=== PATIENT | male | born 1960 | race Caucasian/White ===

== ENCOUNTER 2024-06-27 | Inpatient (IN) | payer MEDICARE, SELFPAY ==
[2024-06-27] VITALS (36 sets, daily range): BP systolic 87–152; BP diastolic 71–97; PULSE 100–141; RESP 12–30; TEMP 36.7–36.9; O2SAT 94–100; BMI 24.4
--- NOTE | ~2024-06-27 | XR_ITS ---
Supine and upright views of the abdomen Clinical history: Postop small bowel obstruction COMPARISON: 07/14/2024 Findings: Dilated small bowel present particularly present in the left upper quadrant, which could re flect small bowel obstruction. No free air evident. No abnormal mass lesion or calcification is seen. Osseous structures are intact. Impression: Small bowel obstruction. Reviewed, dictated and finalized at [facility]. Impression: Small bowel obstruction.
--- NOTE | ~2024-06-27 | XR_ITS ---
Upright portable view of the abdomen Clinical history: NG tube placement Findings: NG tube tip is just the GE junction, with side-port in the distal esophagus. Possible diste nded small bowel loops, which could reflect small bowel obstruction. No free air evident. Abnormal ma ss lesion or calcification is seen. Osseous structures are intact. Impression: NG tube tip at the GE junction. Further advancement of NG tube by at least 10 cm advised to ensure pl acement in the stomach. Possible small bowel obstruction. Reviewed, dictated and finalized at location M. Impression: NG tube tip at the GE junction. Further advancement of NG tube by at least 10 c m advised to ensure placement in the stomach. Possible small bowel obstruction.
--- NOTE | ~2024-06-27 | CT_ITS ---
CTA chest PE abdomen pel Ordering provider: Adore Smtih MD History: . unexplained tachycardia; epigastric pain . Comparison: None. Technique: CT angiogram chest was performed following timed intravenous injection of contrast. Thin s lice axial images and reformatted coronal images were obtained. Three dimensional reformatted images of the chest were also obtained using a [employer] workstation. Also, CT of the abdomen and pelvis was pe rformed with IV contrast. . Automated exposure control and iterative reconstruction technique were e mployed. The dose-length product was 1215.92 mGy-cm. 100 ML Omnipaque 350 was given IV. FINDINGS: CHEST: --PULMONARY ARTERIES: No pulmonary embolus. --VISUALIZED THORACIC INLET: Normal. --MEDIASTINUM: Aorta/coronary arteries: Mild atheromatous disease. Heart/other: The heart is not enlarged. . Lymph nodes: No mediastinal or hilar adenopathy. Fluid seen in the esophagus which may indicate reflux esophagitis.0 --LUNGS: No pulmonary nodules or masses. No infiltrates or effusions. No pneumothorax. Dependent atelectatic c hanges are seen. --MUSCULOSKELETAL: Bones: Age appropriate degenerative changes of the spine. Superficial soft tissues: The superficial soft tissues are normal. ABDOMEN/PELVIS: --MUSCULOSKELETAL: Superficial soft tissues: The superficial soft tissues are normal. Bones: Age appropriate degenerative changes of the spine. --UPPER ABDOMINAL ORGANS: Liver: Normal. Gallbladder: Distended with no stones. Spleen: Normal. Stomach/duodenum: Distended with fluids. Pancreas: Normal. Slightly prominent pancreatic duct. Adrenals: Normal. Kidneys: Normal. --PELVIC ORGANS: The bladder is underfilled. No bladder stones. Enlarged prostate. --BOWEL AND MESENTERY: Colon: No evidence of diverticulitis.. No evidence of appendicitis. Small Bowel: Dilated small bowel is seen suggestive of small bowel obstruction. The transition areas seen in the terminal ileum. The small bowel measures 4.6 cm. Peritoneum/mesentery: No free air or free fluid. No mesenteric lymphadenopathy. --RETROPERITONEUM: Mild atheromatous disease of the abdominal aorta. No retroperitoneal lymphadenop athy. IMPRESSION: CHEST: 1. No pulmonary embolism. No aortic dissection 2. No acute cardiopulmonary pathology. ABDOMEN/PELVIS: 1. Small bowel obstruction with the transition zone in the terminal ileum area. Clinical correlation advised. 2. No evidence of appendicitis, or diverticulitis. Reviewed, dictated and finalized at location A. IMPRESSION: CHEST: 1. No pulmonary embolism. No aortic dissection 2. No acute cardiopulmonary pathology. ABDOMEN/PELVIS: 1. Small bowel obstruction with the transition zone in the terminal ileum area . Clinical correlation advised. 2. No evidence of appendicitis, or diverticulitis.
--- NOTE | ~2024-06-27 | XR_ITS ---
EXAMINATION: XR sm bowel follow through WS DATE: 07/05/2024 15:39 INDICATION: Postoperative ileus versus small bowel obstruction TECHNIQUE: Water-soluble oral contrast was administered by the patient's nasogastric tube, and sequen tial radiographs of the abdomen were obtained through 6 hours. COMPARISON: 06/28/2024 FINDINGS: Nasogastric tube tip in the stomach. There are multiple dilated loops of gas-filled small bowel throu ghout the abdomen and pelvis. There is slow progression of contrast through several of these small roxy wel loops over the course of the next 6 hours of imaging. There is however a dilated loop of small roxy wel extending across the upper pelvis which remains unopacified throughout the course of the examinat ion and no contrast is seen within decompressed more distal small bowel or in the colon. IMPRESSION: 1. Persistent ileus versus small bowel obstruction with contrast not having reached the distalmost di lated loops of gas-filled small bowel over the course of 6 hours. Reviewed, dictated and finalized at location A. IMPRESSION: 1. Persistent ileus versus small bowel obstruction with contrast not having jacque ched the distalmost dilated loops of gas-filled small bowel over the course of 6 hours.
--- NOTE | ~2024-06-27 | XR_ITS ---
EXAMINATION: XR chest PICC line DATE: 07/02/2024 15:11 INDICATION: Assess PICC line placement TECHNIQUE: frontal view of the chest was obtained. COMPARISON: Chest radiograph dated 10/05/[address] dated 06/27/2024 FINDINGS: Right upper extremity peripherally inserted central venous catheter (PICC) tip at the caudal superio r vena cava. Nasogastric tube tip in proximal side port in the body of the stomach. Unchanged linear discoid atelectasis/scarring in the superior segment of the right lower lobe. Additi onal minimal streaky right basilar atelectasis. No new airspace opacities, pulmonary edema, pleural e ffusion or pneumothorax. Heart size is normal. Visualized bones and soft tissues are unremarkable. IMPRESSION: 1. Right PICC line tip at the caudal superior vena cava. 2. Unchanged mild streaky bibasilar atelectasis and discoid atelectasis at the superior segment of th e right lower lobe. Reviewed, dictated and finalized at location A. IMPRESSION: 1. Right PICC line tip at the caudal superior vena cava. 2. Unchanged mild streaky bibasilar atelectasis and discoid atelectasis at the superior segment of the right lower lobe.
--- NOTE | ~2024-06-27 | XR_ITS ---
EXAM/PROCEDURE: XR abdomen/kub 1V - 07/03/2024 12:30 CDT HISTORY: 64 years old Male with ileus s/p adhesiolysis for sbo COMPARISON: 07/01/2024 TECHNIQUE: AP view(s) of the abdomen. FINDINGS/ IMPRESSION: Multiple dilated loops of small bowel are seen, compatible with patient's known ileus versus bowel ob struction. Tip of the nasogastric tube is in the stomach. No free intraperitoneal air is identified on this supine radiograph. The visualized soft tissue shadows are unremarkable. Degenerative changes are seen. Reviewed, dictated and finalized at location A.
--- NOTE | ~2024-06-27 | CT_ITS ---
CT cervical spine wo con Ordering provider: Adore Smith History: . fall, syncope, ams . Comparison: None. Technique: CT of the cervical spine was performed without contrast. Sagittal and coronal reformatted images were also obtained and reviewed. Automated exposure control and iterative reconstruction tess hnique were employed. The dose-length product was 352.08 mGy-cm. FINDINGS: VERTEBRAE: No subluxation or acute fracture. The occipital condyles are intact. Degenerative changes of the spine. DISC SPACES: Severe Narrowing of the disc C3-C4, C4-C5, C5-C6 and C6-C7. Multilevel uncovertebral juliet nt osteoarthritic changes. Bilateral narrowing of the foramina at the level of C3-C4, C4-C5, C5-C6 an d C6-C7. PARASPINOUS SOFT TISSUES: Carotid calcifications. IMPRESSION: No acute osseous abnormality cervical spine. Multilevel degenerative disc disease. Reviewed, dictated and finalized at location A.
--- NOTE | ~2024-06-27 | XR_ITS ---
XR chest 1V portable 07/08/2024 13:30 Indication: Shortness of breath Procedure: AP portable chest Comparison: 07/02/2024 Findings: PICC line tip in the SVC. NG tube in the stomach. Heart size normal. Developing patchy bila teral airspace disease, compatible with pneumonia. No significant effusion or pneumothorax. No acute osseous abnormality. Impression: 1: Developing patchy bilateral airspace disease, compatible with pneumonia. Reviewed, dictated and finalized at location B. Impression: 1: Developing patchy bilateral airspace disease, compatible with pneumonia.
--- NOTE | ~2024-06-27 | US_ITS ---
RIGHT UPPER EXTREMITY VENOUS ULTRASOUND Ordering provider: Ricarda Bui DO History: . redness/swelling at PICC insertion site . Comparison: None. FINDINGS: --JUGULAR: Patent and free of thrombus. Normal compressibility, phasic flow and augmentation. --SUBCLAVIAN: Patent and free of thrombus. Normal compressibility, phasic flow and augmentation. --AXILLARY: Patent and free of thrombus. Normal compressibility, phasic flow and augmentation. --BRACHIAL: Patent and free of thrombus. Normal compressibility, phasic flow and augmentation. --CEPHALIC: Patent and free of thrombus. Normal compressibility, phasic flow and augmentation. --BASILIC: Patent and free of thrombus. Normal compressibility, phasic flow and augmentation. --RADIAL: Patent and free of thrombus. Normal compressibility, phasic flow and augmentation. --ULNAR: Patent and free of thrombus. Normal compressibility, phasic flow and augmentation. PICC line is seen. IMPRESSION: Negative right upper extremity venous US. No deep vein thrombosis. Reviewed, dictated and finalized at location A.
--- NOTE | ~2024-06-27 | XR_ITS ---
XR abdomen/kub 1V Ordering provider: Zach Shipman MD History: . sbo . Comparison: None. FINDINGS: BOWEL: Nasogastric tube is seen in the stomach. Dilated small bowel loops in the upper abdomen are no glo. Obstruction is not excluded. Follow-up advised. ORGANOMEGALY: None. SIGNIFICANT PATHOLOGIC CALCIFICATIONS: None. OTHER: No free air is seen under the diaphragm. IMPRESSION: Dilated small bowel loops in the upper and mid abdomen suggestive of obstruction. Follow-up advised. Reviewed, dictated and finalized at location A. IMPRESSION: Dilated small bowel loops in the upper and mid abdomen suggestive of obstructio n. Follow-up advised.
--- NOTE | ~2024-06-27 | XR_ITS ---
XR abdomen/kub 1V 07/14/2024 08:40 Indication: Ileus versus small bowel obstruction Procedure: KUB Comparison: Comparison to multiple prior studies sequentially, with oldest reviewed study dated 07/06 Findings: there are persistent moderately dilated small bowel loops throughout the abdomen. The colon is relatively decompressed. No abnormal calcifications. Moderate lumbar spondylosis.. Impression: 1: Moderately dilated small bowel loops unchanged from prior study, most likely postoperative ileus v ersus obstruction. Reviewed, dictated and finalized at location A. Impression: 1: Moderately dilated small bowel loops unchanged from prior study, most likely postoperative ileus versus obstruction.
--- NOTE | ~2024-06-27 | CT_ITS ---
Non-contrast CT scan of the Abdomen and Pelvis Clinical indication: Rapid response Technique: 2.5 mm axial scans were obtained through the abdomen and pelvis without intravenous or or al contrast. Dose reduction technique was used on this scan by utilizing automated exposure control a nd iterative reconstruction technique. The dose-length product (DLP) was 1134.28 mGy-cm. COMPARISON: 07/06/2024 Findings: Images through the lung bases reveal small bilateral pleural effusions with bibasilar airs pace disease.. The liver, spleen, pancreas, gallbladder, kidneys, and adrenals appear normal. There are atherosclero tic calcifications of the aorta. . Small amount of pneumoperitoneum present. There are new surgical cora anterior midline subcutaneou s soft tissues. Trace abdominopelvic ascites present. Bowel distention is markedly decreased from gio or exam. Small bowel loops are extensively somewhat matted together, limiting evaluation. Images through the pelvis were performed. Urinary bladder collapsed around a Eller catheter. Prostate gland mildly enlarged. Impression: Small amount of pneumoperitoneum, likely postoperative with evidence of recent midline incision stapl ing since prior exam. Correlate with surgical history. Bowel distention/bowel obstruction is essentially resolved as compared to prior exam. Small bowel edward luation is limited on the current exam due to extensive matting together of bowel loops. Small amount of ascites. Small pleural effusions with bibasilar pulmonary edema/atelectasis versus pneumonia. Correlate clinic ally. Reviewed, dictated and finalized at location M. Impression: Small amount of pneumoperitoneum, likely postoperative with evidence of recent midline incision stapling since prior exam. Correlate with surgical history. Bowel distention/bowel obstruction is essentially resolved as compared to prior exam. Small bowel evaluation is limited on the current exam due to extensive m atting together of bowel loops. Small amount of ascites. Small pleural effusions with bibasilar pulmonary edema/atelectasis versus pneum onia. Correlate clinically.
--- NOTE | ~2024-06-27 | CT_ITS ---
CT of the Abdomen and Pelvis: Indication: Small bowel obstruction, status post laparotomy Technique: 2.5 mm axial scans were obtained through the abdomen and pelvis following intravenous adm inistration of 100 cc of Omnipaque 350. Dose reduction technique was used on this scan by utilizing a utomated exposure control and iterative reconstruction technique. The dose-length product (DLP) was 5 66.32 mGy-cm. COMPARISON: 06/27/2024 Findings: Scans through the lung bases demonstrate small right pleural effusion with bibasilar patch y consolidation. The liver, spleen, pancreas, gallbladder, adrenals and kidneys are within normal limits. There are at herosclerotic calcifications of the aorta. No lymphadenopathy. Multiple dilated proximal small bowel loops are present. There is relative transition point in the mi d abdomen, with distal small bowel and large bowel being decompressed. Small amount of ascites presen t. There is mesenteric edema. No definite extraluminal air identified. Images through the pelvis were performed. Small stones versus dense contrast layering in the urinary bladder. Prostate gland mildly enlarged. Impression: Findings compatible small bowel obstruction, with relative transition point in the mid small bowel. N o obstructing mass evident. Small amount of ascites with mesenteric edema. Small right pleural effusion with patchy bibasilar pulmonary consolidation. Correlate for pulmonary e baljit/atelectasis versus pneumonia. Small stones versus dense contrast layering the urinary bladder. Reviewed, dictated and finalized at [facility]. Impression: Findings compatible small bowel obstruction, with relative transition point in the mid small bowel. No obstructing mass evident. Small amount of ascites with mesenteric edema. Small right pleural effusion with patchy bibasilar pulmonary consolidation. Cor relate for pulmonary edema/atelectasis versus pneumonia. Small stones versus dense contrast layering the urinary bladder.
--- NOTE | ~2024-06-27 | XR_ITS ---
SMALL BOWEL SERIES ONLY INDICATION: Bowel obstruction TECHNIQUE: Serial plain films were performed following water-soluble contrast instillation via the pr e-existing nasogastric tube. COMPARISON: Reference is made to a CT examination of the abdomen and pelvis dated 06/27/2024 which demo nstrated a small bowel obstruction with the transition zone in the terminal ileum. FINDINGS: Production Trainer imaging demonstrated multiple loops of significantly dilated small bowel measuring 6. 62 cm in greatest dimension, to the left of midline with significant mural thickening. No free air wa s appreciated on plain film supine call out operator evaluation. Water-soluble contrast was instilled into the pre-existing nasogastric tube by the technologist and e valuated over the ensuing afternoon and early evening. After 6 hours, the contrast remained within multiple loops of dilated small bowel (as well as the now significantly dilated stomach), without significant progression. Examination is presented for interpretation at approximately 6:30 PM. IMPRESSION: High-grade small bowel obstruction, as detailed above. Reviewed, dictated and finalized at location A.
--- NOTE | ~2024-06-27 | XR_ITS ---
Supine and upright views of the abdomen Clinical history: Small bowel obstruction Findings: Dilated small bowel loops are compatible with small bowel obstruction. No free air present. NG tube in place. No abnormal mass lesion or calcification is seen. Osseous structures are intact. Impression: Small bowel obstruction with NG tube in place. Reviewed, dictated and finalized at [facility]. Impression: Small bowel obstruction with NG tube in place.
--- NOTE | ~2024-06-27 | XR_ITS ---
EXAMINATION: XR sm bowel follow through DATE: 07/15/2024 11:47 INDICATION: Small bowel obstruction post small bowel resection TECHNIQUE: Cook Chief radiograph(s) of the abdomen was/were obtained. Oral contrast was administered, and sequential radiographs of the abdomen were obtained until oral contrast was noted to be in the proxi mal colon. A total of 11 overhead radiographs were obtained. COMPARISON: 07/09/2024 FINDINGS: Transit time from the stomach to proximal colon was approximately 2 hours. There is normal caliber an d mucosal fold pattern throughout the small bowel. IMPRESSION: 1. Normal small bowel follow-through. Reviewed, dictated and finalized at location A.
--- NOTE | ~2024-06-27 | XR_ITS ---
Supine and upright views of the abdomen Clinical history: Small bowel obstruction COMPARISON: 07/05/2024 Findings: NG tube in place. Dilated small bowel loops are compatible small bowel obstruction. No free air. No abnormal mass lesion or calcification is seen. Osseous structures are intact. Impression: Small bowel obstruction with NG tube in place. Reviewed, dictated and finalized at [facility]. Impression: Small bowel obstruction with NG tube in place.
--- NOTE | ~2024-06-27 | XR_ITS ---
XR abdomen gastric tube insert Ordering provider: Adore Smith MD History: . check NG placement . Comparison: None. FINDINGS/impression: BOWEL: Nasogastric tube is seen with the tip in the fundus of the stomach. Dilated small bowel loops seen suggestive of obstruction. Follow-up advised. Reviewed, dictated and finalized at location A.
--- NOTE | ~2024-06-27 | XR_ITS ---
EXAMINATION: XR abdomen obstructive series DATE: 07/13/2024 09:16 INDICATION: Nausea. Postoperative adhesion lysis. TECHNIQUE: Frontal supine and upright views of the abdomen were obtained. COMPARISON: 07/09/2024 FINDINGS: There is gas scattered throughout multiple loops of small bowel a few segments. Mildly dilated most l ikely postoperative ileus. No free intraperitoneal gas. Mild streaky atelectasis/scarring at the left lung base and oblique linear discoid atelectasis in the right mid to lower lung zone. Heart size is normal. IMPRESSION: 1. Several intermittently mildly dilated loops of small bowel throughout the abdomen and pelvis and favor postoperative ileus over obstruction. Reviewed, dictated and finalized at location A. IMPRESSION: 1. Several intermittently mildly dilated loops of small bowel throughout the a bdomen and pelvis and favor postoperative ileus over obstruction.
--- NOTE | ~2024-06-27 | XR_ITS ---
EXAMINATION: XR UGI water soluble w sbs DATE: 07/09/2024 12:40 INDICATION: Status post small bowel resection for small bowel obstruction. TECHNIQUE: 360 mm water-soluble contrast was injected through the patient's nasogastric tube. 11 fluo roscopic spot radiographs of the stomach, and proximal small bowel were obtained. Additional overhea d radiographs were obtained during the transit through the small bowel. Fluoroscopy exposure time wa s 0.3 minutes. Total DAP was 54.255 Gycm^2 COMPARISON: None. FINDINGS: The nasogastric tube is in expected position with the distal tip in proximal side port in the body of the stomach. The stomach and proximal small bowel are normal in appearance. There was one episode of spontaneous gastroesophageal reflux to the midesophagus. Transit time to the colon was 1 hour with p rogressive accumulation of contrast in the proximal colon over the following one hour. The small jemima l demonstrates a normal diameter and mucosal fold pattern. Midline skin cora are present. IMPRESSION: 1. No bowel obstruction or ileus with normal small bowel transit time and normal caliber and mucosal fold pattern to the small bowel. Reviewed, dictated and finalized at location A. IMPRESSION: 1. No bowel obstruction or ileus with normal small bowel transit time and tristan l caliber and mucosal fold pattern to the small bowel.
--- NOTE | ~2024-06-27 | CT_ITS ---
CT brain wo con Ordering provider: Adore Smith History: 64 years Male with . fall, syncope, initially unresponsive . Comparison: None. Technique: CT of the head without contrast. Radiation reduction technique utilized.The dose-length pr oduct was 681 mGy-cm. FINDINGS: BRAIN PARENCHYMA AND CSF SPACES: Mild leukoaraiosis and diffuse cortical atrophy. Mild atheromatous d isease. Old lacunar infarct in the right frontal paraventricular and right basal ganglia area. No mid line shift, mass effect or hemorrhage. The brain parenchyma and CSF spaces are otherwise normal. VISUALIZED PARANASAL SINUSES: Well aerated. MASTOIDS: Well aerated. BONES: The bones appear intact. SOFT TISSUES: Visualized nasopharynx is normal. Superficial soft tissues are normal. IMPRESSION: No acute intracranial findings. Reviewed, dictated and finalized at location A.
--- NOTE | ~2024-06-27 | XR_ITS ---
[id number] Indication: Small bowel obstruction. Patient pulled G-tube out. TECHNIQUE: Fluoroscopy used during NG tube placement on 07/01/2024. 0.1 minutes of fluoroscopy with o ne fluoroscopic images captured. FINDINGS: Single image demonstrates NG tube in the stomach. Correlate with procedure note. IMPRESSION: Fluoroscopy used during NG tube placement in the stomach. Reviewed, dictated and finalized at location A.
--- NOTE | ~2024-06-27 | XR_ITS ---
Supine and upright views of the abdomen Clinical history: Small bowel obstruction, status post small bowel resection COMPARISON: 07/06/2024 Findings: NG tube in place. Surgical skin cora noted in the midline. Bowel gas pattern is nonspeci fic. No evidence for obstruction or free air. No abnormal mass lesion or calcification is seen. Mulhall us structures are intact. Impression: Nonspecific bowel gas pattern with NG tube in place. Reviewed, dictated and finalized at location . Impression: Nonspecific bowel gas pattern with NG tube in place.
--- NOTE | 2024-06-27 00:08 | ECG_ITS ---
Test Date: 2024-06-27 00:08:48 Measurements Intervals [place] Rate: 133 P: 34 ND: 108 QRS: -1 QRSD: 90 T: 75 QT: 328 QTc: 488 Interpretive Statements SINUS TACHYCARDIA WITH SHORT ND INTERVAL DELAYED PRECORDIAL R/S TRANSITION CONSIDER INFERIOR INFARCT, AGE INDETERMINATE NONSPECIFIC ST & T-WAVE ABNORMALITY- ANTEROLAT/HIGH LAT LEADS BASELINE WANDER- II, III, AVR, AVL, AVF, V4-V6 ABNORMAL ECG No previous ECG available for comparison Electronically Signed On 06-27-2024 07:30:39 CDT by Kar Bray D.O.
--- NOTE | 2024-06-27 01:07 | ECG_ITS ---
Test Date: 2024-06-27 01:14:58 Measurements Intervals [place] Rate: 144 P: 43 MT: 134 QRS: -5 QRSD: 83 T: 76 QT: 297 QTc: 460 Interpretive Statements SINUS TACHYCARDIA DELAYED PRECORDIAL R/S TRANSITION CONSIDER INFERIOR INFARCT, AGE INDETERMINATE NONSPECIFIC ST & T-WAVE ABNORMALITY- HIGH LATERAL LEADS ABNORMAL ECG Compared to ECG 06/27/2024 00:08:48 HEART RATE HAS INCREASED Electronically Signed On 06-27-2024 07:46:26 CDT by Kar Bray D.O.
--- NOTE | 2024-06-27 01:35 | PC.NURSE ---
ERP notified of patients VS and symptoms. No new orders. Patient family at bedside.
[2024-06-27 01:57] LABS: Hematocrit 54.8 % (42.0-52.0); Hemoglobin 18.5 g/dL (14.0-18.0); Mean Corpuscular HGB Conc 33.8 g/dl (32-36); Mean Corpuscular Hemoglobin 31.7 pg (26-34); Mean Platelet Volume 9.4 fl (7.4-10.4); Platelet Count Result 269 k/mm3 (150-375); Red Blood Count 5.83 M/mm3 (4.6-6.20); Red Cell Distribution Width 13.2 % (11.5-14.5); White Blood Count 7.5 K/mm3 (4.5-10.0)
[2024-06-27] MEDS: SODIUM CHLORIDE 0.9% IV 1,000 ML 999 ML IV CONT ×2 (01:58→04:17)
[2024-06-27 02:08] LABS: INR 1.1
[2024-06-27 02:09] LABS: Partial Thromboplastin Time 20.9 Seconds (22.3-36.8)
[2024-06-27 02:23] LABS: Band Neutrophils Percent 3 % (0-6); Large Platelets Present; Monocytes Percent Manual 4 % (3-9); Neutrophils Percent Manual 89 % (46-73); Platelet Estimate Adequate (Adequate); Schistocytes None Seen; Smudge Cells PRESENT; Total Cells Counted 100
[2024-06-27 02:29] LABS: Ethanol < 10 mg/dL (<10)
[2024-06-27 02:38] LABS: Alanine Aminotransferase 33 U/L (6-50); Albumin Level 3.9 g/dL (3.5-5.1); Alkaline Phosphatase 64 U/L (38-126); Anion Gap 20 mmol/L (4-12); Aspartate Amino Transferase 40 U/L (17-59); Bilirubin,Total 1.8 mg/dL (0.2-1.3); Blood Urea Nitrogen 48 mg/dL (9-20); Carbon Dioxide 20 mmol/L (22-30); Chloride 90 mmol/L (98-107); Estimated CRCL calculation 33 ml/min; Estimated Glomerular Filt Rate 34; Glucose 218 mg/dL (65-110); Potassium 3.8 mmol/L (3.4-5.0); Sodium 130 mmol/L (137-145)
--- OUTSIDE RECORDS SUMMARY | 2024-06-27 02:48 | XMS_ITS | Clinical Summary ---
Author Organization [facility] Address [address] [place] [id number] Care Team Providers Care Director Of Physician Practices Name Role Phone Unavailable Primary Care Provider Unavailabl e Social History Tobacco Use Types Packs/Day Years Used Date Smoking Tobacco: Never Assessed Sex and Gender Information Value Date Recorded Sex Assigned at Not on file Legal Sex Male 5:01 PM CDT Gender Identity Not on file Sexual Orientation Not on file Plan of Treatment Health Maintenance Due Date Last Done Comments Colorectal Cancer Screening Colonoscopy (10 Years) 1960 Hepatitis C 02/18/1976 DTaP, Tdap and Td Vaccines ( 1 - Tdap) 1977 Zoster Vaccines (1 of 2) 02/18/2008 Pneumococcal Vaccine: 65+ Ye ars (1 of 1 - PCV) 2023 COVID-19 Vaccine (1 - 2023-2 5 season) 2023 RSV Immunization or 60+ Years (1 - 1-dose 75+ series) 2033 Meningococcal B Vaccine Aged Out No l onger eligible based on patient's age to complete this topic Meningococcal Vaccine Aged Out No jamia kadie eligible based on patient's age to complete this topic RSV Immunizations Under 20 Months Aged Out No longer eligible based on patient's age to complete this topic
--- NOTE | 2024-06-27 03:50 | PC.NURSE ---
ERP notified of patients VS and request for water.
--- NOTE | 2024-06-27 04:01 | ED.SYNCOPE ---
HPI - Syncope General Chief Complaint: Syncope Stated Complaint: altered loc Time Seen by Provider: 06/27/24 02:27 Source: patient, family, EMS and RN notes reviewed Mode of arrival: EMS Limitations: no limitations History of Present Illness HPI narrative: Patient presents after a syncopal episode. Patient notes that he was urinating when he lost muscle tone and consciousness falling forward. It was reported that he was unconscious/unresponsive. He denies any chest pain, shortness of breath, or this happening before. He has been feeling unwell for the last several days. After this episode he notes that he has been having epigastric pain although he has been complaining of pain there for approximately a week after he slipped in the shower and also fell about a week ago. He states he has hemorrhoids so occasionally he has bloody stools. He feels weak and lightheaded. He does not remember passing out and in fact does not recall anything until he got to the emergency department. His last bowel movement was 2 days ago. He reports that he is passing flatus. Not on anticoagulation. Has a history of abdominal surgery with a varicocele an inguinal hernia. There was reportedly concern for alcohol withdrawal as his last drink was 3 days ago and he has a history of regular consumption of alcohol. No history of seizures, independently or in the setting of withdrawal. He states he has never withdrawn before although his states that he will experience some symptoms if he goes without a drink. He denies any recreational drugs. His last oral intake was Friday night because his abdominal pain and in general he has had decreased p.o. intake recently. He has been vomiting. Related Data Home Medications ?Medication ?Instructions ?Recorded ?Confirmed ?Last Taken ?Type No Home Medications 06/27/24 06/27/24 Unknown History Allergies Allergy/AdvReac Type Severity Reaction Status Date / Time No Known Allergies Allergy Unknown Verified 06/28/24 08:46 [facility] Family History Family History (System 06/28/24 @ 08:46 by Jared Murry) Mother Breast cancer Father Malignant neoplasm of prostate Social History Social History Smoking status: Current every day smoker Tobacco type: smokeless tobacco Smokeless tobacco user: chewing tobacco Alcohol intake: current Drinks per week: 70 Substance use: never Do You Feel Safe in your Home?: Yes Lack of Transportation: No Lack of Food: Never True Current Housing: I Have Housing Concerned About Future Housing: No Difficulty Paying Gas/Electric Bills: Decline to Answer Difficulty Paying for Meds: Decline to Answer Currently Unemployed: Decline to Answer Education: Decline to Answer Difficulty w/ Childcare or Family Care: Decline to Answer Spiritual care concerns: No Exam Narrative: GENERAL: In no acute distress. HEAD: Normocephalic, atraumatic. EYES: Non injected, non icteric ENT: Nares clear, no rhinorrhea or epistaxis. NECK: Supple. CHEST: Speaking in full sentences. No respiratory distress. HEART: Regular rate and rhythm. . ABDOMEN: Soft. Mild epigastric TTP without rigidity or guarding. Not peritoneal. EXTREMITIES: Normal range of motion. No lower extremity edema. SKIN: Warm, dry, no rash. Significant Piloerection on bilateral arms. NEURO: No focal deficits. Alert and oriented x3. Not tremulous with hands outstretched. No tongue tremulousness/fasciculations. No abnormal movements appreciated. PSYCH: Normal mood and affect. Course Vital Signs Vital signs: Vital Signs Temperature 98.5 F 06/27/24 00:02 Pulse Rate 134 H 06/27/24 00:02 Respiratory Rate 18 06/27/24 00:02 Blood Pressure 131/97 H 06/27/24 00:02 Pulse Oximetry 99 06/27/24 00:02 Oxygen Delivery Room Air 06/27/24 00:02 Temperature 97.9 F 06/28/24 22:32 Pulse Rate 100 06/29/24 00:00 Respiratory Rate 18 06/28/24 22:32 Blood Pressure 148/96 H 06/28/24 22:32 Pulse Oximetry 96 06/28/24 22:32 Oxygen Delivery Room Air 06/28/24 14:15 MDM - Syncope MDM Narrative Medical decision making narrative: Patient presents after a syncopal episode. He has been feeling unwell over the last several days epigastric pain and vomiting. In the emergency department he is afebrile vital signs notable for tachycardia and hypertension. Creatinine is elevated with no prior for comparison thus unclear if CKD verses ORTEGA versus acute renal failure. Patient received 1 L IV fluids via EMS, an additional L here, and a third L was ordered. He has hyperglycemia with an anion gap but not frankly acidotic on chemistry. Hyponatremia partially corrects to 132-133 in the setting of hyperglycemia, still a bit low but no prior for comparison. Elevated T bili but otherwise other liver enzymes are normal. Lipase is normal. Alcohol level normal. ProBNP is elevated though CT scan does not show pulmonary edema only discoid atelectasis. Patient has elevated troponin a, NSTEMI, possibly due to demand ischemia. Because he is NPO, rectal asa ordered as is [address] abdomen pelvis with concern for bowel obstruction as below. Discussed with on-call general surgeon Dr Plata. Zosyn and NG tube ordered. Patient and family updated on diagnosis, management, and need for admission. They verifies understanding. Lactic acid remains elevated even after 3 L IV fluid. Additional IV fluids have been ordered through [facility] order set. Patient does not actively appear to be withdrawing however this is not a risk given his heavy consumption. Patient discussed with on-call hospitalist Dr Ashton. Differential Diagnosis Differential diagnosis: Likely syncope due to orthostatic hypotension, vasovagal syncope, complete atrioventricular block, subarachnoid hemorrhage, dehydration and other (Alcohol withdrawal, bowel contusion opiate withdrawal) Lab Data 06/28/24 04:39 06/28/24 04:39 Labs: Lab Results 06/27/24 06/27/24 06/27/24 Range/Units 01:51 05:39 06:03 WBC 7.5 (4.5-10.0) K/mm3 RBC 5.83 (4.6-6.20) M/mm3 Hgb 18.5 H (14.0-18.0) g/dL Hct 54.8 H (42.0-52.0) % MCV 94.0 (80-100) fl MCH 31.7 (26-34) pg MCHC 33.8 (32-36) g/dl RDW 13.2 (11.5-14.5) % Plt Count 269 (150-375) k/mm3 MPV 9.4 (7.4-10.4) fl Immature Gran % (Auto) Not Reportable Neut % (Auto) Not Reportable Lymph % (Auto) Not Reportable [place] % (Auto) Not Reportable Eos % (Auto) Not Reportable Baso % (Auto) Not Reportable Lymph # (Auto) Not Reportable [place] # (Auto) Not Reportable Eos # (Auto) Not Reportable Baso # (Auto) Not Reportable Abs Immat Gran (auto) Not Reportable Absolute Neuts (auto) Not Reportable Absolute Nucleated RBC Not Reportable Total Counted 100 Neutrophils % (Manual) 89 H (46-73) % Band Neutrophils % 3 (0-6) % Lymphocytes % (Manual) 4.0 L (18-44) % Monocytes % (Manual) 4 (3-9) % Nucleated RBC % Not Reportable Abs Neuts (Manual) 6.90 H (1.3-6.7) K/mm3 Abs Lymphs (Manual) 0.30 L (1.1-4.5) K/mm3 Abs Monocytes (Manual) 0.30 (0.1-0.90) K/mm3 Smudge Cells Present Platelet Estimate Adequate (Adequate) Large Platelets Present Schistocytes None seen PT 14.0 (11.1-14.7) Seconds INR 1.1 APTT 20.9 L (22.3-36.8) Seconds Sodium 130 L (137-145) mmol/L Potassium 3.8 (3.4-5.0) mmol/L Chloride 90 L (98-107) mmol/L Carbon Dioxide 20 L (22-30) mmol/L Anion Gap 20 H (4-12) mmol/L BUN 48 H (9-20) mg/dL Creatinine 1.98 H (0.7-1.3) mg/dL Estim Creat Clear Calc 33 ml/min Estimated GFR 34 L (59 - ) Glucose 218 H (65-110) mg/dL POC Capillary Glucose (65-105) mg/dl Lactic Acid (0.7-2.0) mmol/L Calcium 9.0 (8.4-10.2) mg/dL Magnesium 1.8 (1.6-2.3) mg/dL Total Bilirubin 1.8 H (0.2-1.3) mg/dL Direct Bilirubin 0.0 (0-0.3) mg/dL Indirect Bilirubin 0.9 (0-1.1) mg/dL AST 40 (17-59) U/L ALT 33 (6-50) U/L Alkaline Phosphatase 64 (38-126) U/L Troponin I 0.369 H* (0.000-0.034) ng/mL NT-Pro-B Natriuret Pep 3980 H (19.9-100) pg/mL Total Protein 8.0 (6.3-8.2) g/dL Albumin 3.9 (3.5-5.1) g/dL Lipase 83 (23-300) U/L TSH 3.940 (0.465-4.680) uIU/mL Urine Color (Yellow) Urine Appearance (Clear) Urine pH (5.0-9.0) Ur Specific [place] (1.001-1.035) Urine Protein (Negative) mg/dL Urine Glucose (UA) (Negative) mg/dL Urine Ketones (Negative) mg/dL Ur Blood (Man) (Negative) Urine Nitrate (Negative) Urine Bilirubin (Negative) Urine Urobilinogen (<2.0) mg/dL Add Ur Microanalysis Leukocyte Esterase Rfl (Negative) JENNIFER/UL Urine RBC (0-2) /hpf Urine WBC (0-3) /hpf Ur Squamous Epith Cells (Few) /hpf Urine Bacteria /hpf Urine Casts Hyaline Casts (None) /lpf Ethyl Alcohol < 10 (<10) mg/dL Influenza A (RT-PCR) Negative (Negative) Influenza B (RT-PCR) Negative (Negative) RSV (RT-PCR) Negative (Negative) SARS-CoV-2 RNA (RT-PCR) Negative (Negative) Blood Type Antibody Screen 06/27/24 06/27/24 06/27/24 Range/Units 06:03 07:21 08:39 WBC (4.5-10.0) K/mm3 RBC (4.6-6.20) M/mm3 Hgb (14.0-18.0) g/dL Hct (42.0-52.0) % MCV (80-100) fl MCH (26-34) pg MCHC (32-36) g/dl RDW (11.5-14.5) % Plt Count (150-375) k/mm3 MPV (7.4-10.4) fl Immature Gran % (Auto) Neut % (Auto) Lymph % (Auto) [place] % (Auto) Eos % (Auto) Baso % (Auto) Lymph # (Auto) [place] # (Auto) Eos # (Auto) Baso # (Auto) Abs Immat Gran (auto) Absolute Neuts (auto) Absolute Nucleated RBC Total Counted Neutrophils % (Manual) (46-73) % Band Neutrophils % (0-6) % Lymphocytes % (Manual) (18-44) % Monocytes % (Manual) (3-9) % Nucleated RBC % Abs Neuts (Manual) (1.3-6.7) K/mm3 Abs Lymphs (Manual) (1.1-4.5) K/mm3 Abs Monocytes (Manual) (0.1-0.90) K/mm3 Smudge Cells Platelet Estimate (Adequate) Large Platelets Schistocytes PT (11.1-14.7) Seconds INR APTT (22.3-36.8) Seconds Sodium (137-145) mmol/L Potassium (3.4-5.0) mmol/L Chloride (98-107) mmol/L Carbon Dioxide (22-30) mmol/L Anion Gap (4-12) mmol/L BUN (9-20) mg/dL Creatinine (0.7-1.3) mg/dL Estim Creat Clear Calc ml/min Estimated GFR (59 - ) Glucose (65-110) mg/dL POC Capillary Glucose 171 H (65-105) mg/dl Lactic Acid 2.5 H (0.7-2.0) mmol/L Calcium (8.4-10.2) mg/dL Magnesium (1.6-2.3) mg/dL Total Bilirubin (0.2-1.3) mg/dL Direct Bilirubin (0-0.3) mg/dL Indirect Bilirubin (0-1.1) mg/dL AST (17-59) U/L ALT (6-50) U/L Alkaline Phosphatase (38-126) U/L Troponin I (0.000-0.034) ng/mL NT-Pro-B Natriuret Pep Cancelled (19.9-100) pg/mL Total Protein (6.3-8.2) g/dL Albumin (3.5-5.1) g/dL Lipase (23-300) U/L TSH (0.465-4.680) uIU/mL Urine Color (Yellow) Urine Appearance (Clear) Urine pH (5.0-9.0) Ur Specific [place] (1.001-1.035) Urine Protein (Negative) mg/dL Urine Glucose (UA) (Negative) mg/dL Urine Ketones (Negative) mg/dL Ur Blood (Man) (Negative) Urine Nitrate (Negative) Urine Bilirubin (Negative) Urine Urobilinogen (<2.0) mg/dL Add Ur Microanalysis Leukocyte Esterase Rfl (Negative) JENNIFER/UL Urine RBC (0-2) /hpf Urine WBC (0-3) /hpf Ur Squamous Epith Cells (Few) /hpf Urine Bacteria /hpf Urine Casts Hyaline Casts (None) /lpf Ethyl Alcohol (<10) mg/dL Influenza A (RT-PCR) (Negative) Influenza B (RT-PCR) (Negative) RSV (RT-PCR) (Negative) SARS-CoV-2 RNA (RT-PCR) (Negative) Blood Type Antibody Screen 06/27/24 06/27/24 06/27/24 Range/Units 09:03 09:36 16:51 WBC (4.5-10.0) K/mm3 RBC (4.6-6.20) M/mm3 Hgb (14.0-18.0) g/dL Hct (42.0-52.0) % MCV (80-100) fl MCH (26-34) pg MCHC (32-36) g/dl RDW (11.5-14.5) % Plt Count (150-375) k/mm3 MPV (7.4-10.4) fl Immature Gran % (Auto) Neut % (Auto) Lymph % (Auto) [place] % (Auto) Eos % (Auto) Baso % (Auto) Lymph # (Auto) [place] # (Auto) Eos # (Auto) Baso # (Auto) Abs Immat Gran (auto) Absolute Neuts (auto) Absolute Nucleated RBC Total Counted Neutrophils % (Manual) (46-73) % Band Neutrophils % (0-6) % Lymphocytes % (Manual) (18-44) % Monocytes % (Manual) (3-9) % Nucleated RBC % Abs Neuts (Manual) (1.3-6.7) K/mm3 Abs Lymphs (Manual) (1.1-4.5) K/mm3 Abs Monocytes (Manual) (0.1-0.90) K/mm3 Smudge Cells Platelet Estimate (Adequate) Large Platelets Schistocytes PT (11.1-14.7) Seconds INR APTT (22.3-36.8) Seconds Sodium (137-145) mmol/L Potassium (3.4-5.0) mmol/L Chloride (98-107) mmol/L Carbon Dioxide (22-30) mmol/L Anion Gap (4-12) mmol/L BUN (9-20) mg/dL Creatinine (0.7-1.3) mg/dL Estim Creat Clear Calc ml/min Estimated GFR (59 - ) Glucose (65-110) mg/dL POC Capillary Glucose (65-105) mg/dl Lactic Acid 2.8 H 1.2 (0.7-2.0) mmol/L Calcium (8.4-10.2) mg/dL Magnesium (1.6-2.3) mg/dL Total Bilirubin (0.2-1.3) mg/dL Direct Bilirubin (0-0.3) mg/dL Indirect Bilirubin (0-1.1) mg/dL AST (17-59) U/L ALT (6-50) U/L Alkaline Phosphatase (38-126) U/L Troponin I 0.422 H* (0.000-0.034) ng/mL NT-Pro-B Natriuret Pep (19.9-100) pg/mL Total Protein (6.3-8.2) g/dL Albumin (3.5-5.1) g/dL Lipase (23-300) U/L TSH (0.465-4.680) uIU/mL Urine Color Dark yellow (Yellow) Urine Appearance Turbid H (Clear) Urine pH 5.0 (5.0-9.0) Ur Specific [place] > 1.045 H (1.001-1.035) Urine Protein 2+ H (Negative) mg/dL Urine Glucose (UA) Negative (Negative) mg/dL Urine Ketones Trace H (Negative) mg/dL Ur Blood (Man) Negative (Negative) Urine Nitrate Negative (Negative) Urine Bilirubin 1+ H (Negative) Urine Urobilinogen 1.0 (<2.0) mg/dL Add Ur Microanalysis Reviewed Leukocyte Esterase Rfl Trace H (Negative) JENNIFER/UL Urine RBC 11-20 H (0-2) /hpf Urine WBC 11-20 H (0-3) /hpf Ur Squamous Epith Cells Occasional (Few) /hpf Urine Bacteria None seen /hpf Urine Casts >20 Hyaline Casts Present (None) /lpf Ethyl Alcohol (<10) mg/dL Influenza A (RT-PCR) (Negative) Influenza B (RT-PCR) (Negative) RSV (RT-PCR) (Negative) SARS-CoV-2 RNA (RT-PCR) (Negative) Blood Type Antibody Screen 06/27/24 06/28/24 06/28/24 Range/Units 18:21 00:23 04:39 WBC 7.9 (4.5-10.0) K/mm3 RBC 5.01 (4.6-6.20) M/mm3 Hgb 15.8 (14.0-18.0) g/dL Hct 47.6 (42.0-52.0) % MCV 95.0 (80-100) fl MCH 31.5 (26-34) pg MCHC 33.2 (32-36) g/dl RDW 13.5 (11.5-14.5) % Plt Count 249 (150-375) k/mm3 MPV 9.4 (7.4-10.4) fl Immature Gran % (Auto) 0.4 Neut % (Auto) 63.6 Lymph % (Auto) 15.4 L [place] % (Auto) 19.9 H Eos % (Auto) 0.6 Baso % (Auto) 0.1 L Lymph # (Auto) 1.22 [place] # (Auto) 1.6 H Eos # (Auto) 0.1 Baso # (Auto) 0.0 Abs Immat Gran (auto) 0.03 Absolute Neuts (auto) 5.0 Absolute Nucleated RBC 0.000 Total Counted Neutrophils % (Manual) (46-73) % Band Neutrophils % (0-6) % Lymphocytes % (Manual) (18-44) % Monocytes % (Manual) (3-9) % Nucleated RBC % 0.0 Abs Neuts (Manual) (1.3-6.7) K/mm3 Abs Lymphs (Manual) (1.1-4.5) K/mm3 Abs Monocytes (Manual) (0.1-0.90) K/mm3 Smudge Cells Platelet Estimate (Adequate) Large Platelets Schistocytes PT (11.1-14.7) Seconds INR APTT (22.3-36.8) Seconds Sodium 134 L (137-145) mmol/L Potassium 3.1 L (3.4-5.0) mmol/L Chloride 97 L (98-107) mmol/L Carbon Dioxide 24 (22-30) mmol/L Anion Gap 13 H (4-12) mmol/L BUN 41 H (9-20) mg/dL Creatinine 1.36 H (0.7-1.3) mg/dL Estim Creat Clear Calc 46 ml/min Estimated GFR 52 L (59 - ) Glucose 101 (65-110) mg/dL POC Capillary Glucose 120 H 102 (65-105) mg/dl Lactic Acid 1.1 (0.7-2.0) mmol/L Calcium 8.8 (8.4-10.2) mg/dL Magnesium 2.5 H (1.6-2.3) mg/dL Total Bilirubin 1.4 H (0.2-1.3) mg/dL Direct Bilirubin (0-0.3) mg/dL Indirect Bilirubin (0-1.1) mg/dL AST 50 (17-59) U/L ALT 24 (6-50) U/L Alkaline Phosphatase 41 (38-126) U/L Troponin I (0.000-0.034) ng/mL NT-Pro-B Natriuret Pep (19.9-100) pg/mL Total Protein 6.0 L (6.3-8.2) g/dL Albumin 3.3 L (3.5-5.1) g/dL Lipase (23-300) U/L TSH (0.465-4.680) uIU/mL Urine Color (Yellow) Urine Appearance (Clear) Urine pH (5.0-9.0) Ur Specific [place] (1.001-1.035) Urine Protein (Negative) mg/dL Urine Glucose (UA) (Negative) mg/dL Urine Ketones (Negative) mg/dL Ur Blood (Man) (Negative) Urine Nitrate (Negative) Urine Bilirubin (Negative) Urine Urobilinogen (<2.0) mg/dL Add Ur Microanalysis Leukocyte Esterase Rfl (Negative) JENNIFER/UL Urine RBC (0-2) /hpf Urine WBC (0-3) /hpf Ur Squamous Epith Cells (Few) /hpf Urine Bacteria /hpf Urine Casts Hyaline Casts (None) /lpf Ethyl Alcohol (<10) mg/dL Influenza A (RT-PCR) (Negative) Influenza B (RT-PCR) (Negative) RSV (RT-PCR) (Negative) SARS-CoV-2 RNA (RT-PCR) (Negative) Blood Type O Positive Antibody Screen Negative 06/28/24 Range/Units 05:46 WBC (4.5-10.0) K/mm3 RBC (4.6-6.20) M/mm3 Hgb (14.0-18.0) g/dL Hct (42.0-52.0) % MCV (80-100) fl MCH (26-34) pg MCHC (32-36) g/dl RDW (11.5-14.5) % Plt Count (150-375) k/mm3 MPV (7.4-10.4) fl Immature Gran % (Auto) Neut % (Auto) Lymph % (Auto) [place] % (Auto) Eos % (Auto) Baso % (Auto) Lymph # (Auto) [place] # (Auto) Eos # (Auto) Baso # (Auto) Abs Immat Gran (auto) Absolute Neuts (auto) Absolute Nucleated RBC Total Counted Neutrophils % (Manual) (46-73) % Band Neutrophils % (0-6) % Lymphocytes % (Manual) (18-44) % Monocytes % (Manual) (3-9) % Nucleated RBC % Abs Neuts (Manual) (1.3-6.7) K/mm3 Abs Lymphs (Manual) (1.1-4.5) K/mm3 Abs Monocytes (Manual) (0.1-0.90) K/mm3 Smudge Cells Platelet Estimate (Adequate) Large Platelets Schistocytes PT (11.1-14.7) Seconds INR APTT (22.3-36.8) Seconds Sodium (137-145) mmol/L Potassium (3.4-5.0) mmol/L Chloride (98-107) mmol/L Carbon Dioxide (22-30) mmol/L Anion Gap (4-12) mmol/L BUN (9-20) mg/dL Creatinine (0.7-1.3) mg/dL Estim Creat Clear Calc ml/min Estimated GFR (59 - ) Glucose (65-110) mg/dL POC Capillary Glucose 97 (65-105) mg/dl Lactic Acid (0.7-2.0) mmol/L Calcium (8.4-10.2) mg/dL Magnesium (1.6-2.3) mg/dL Total Bilirubin (0.2-1.3) mg/dL Direct Bilirubin (0-0.3) mg/dL Indirect Bilirubin (0-1.1) mg/dL AST (17-59) U/L ALT (6-50) U/L Alkaline Phosphatase (38-126) U/L Troponin I (0.000-0.034) ng/mL NT-Pro-B Natriuret Pep (19.9-100) pg/mL Total Protein (6.3-8.2) g/dL Albumin (3.5-5.1) g/dL Lipase (23-300) U/L TSH (0.465-4.680) uIU/mL Urine Color (Yellow) Urine Appearance (Clear) Urine pH (5.0-9.0) Ur Specific [place] (1.001-1.035) Urine Protein (Negative) mg/dL Urine Glucose (UA) (Negative) mg/dL Urine Ketones (Negative) mg/dL Ur Blood (Man) (Negative) Urine Nitrate (Negative) Urine Bilirubin (Negative) Urine Urobilinogen (<2.0) mg/dL Add Ur Microanalysis Leukocyte Esterase Rfl (Negative) JENNIFER/UL Urine RBC (0-2) /hpf Urine WBC (0-3) /hpf Ur Squamous Epith Cells (Few) /hpf Urine Bacteria /hpf Urine Casts Hyaline Casts (None) /lpf Ethyl Alcohol (<10) mg/dL Influenza A (RT-PCR) (Negative) Influenza B (RT-PCR) (Negative) RSV (RT-PCR) (Negative) SARS-CoV-2 RNA (RT-PCR) (Negative) Blood Type Antibody Screen Imaging Data Radiologist's impression: Impressions Chest/Abdomen/Pelvis CTA 06/27/24 06:17 IMPRESSION: CHEST: 1. No pulmonary embolism. No aortic dissection 2. No acute cardiopulmonary pathology. ABDOMEN/PELVIS: 1. Small bowel obstruction with the transition zone in the terminal ileum area. Clinical correlation advised. 2. No evidence of appendicitis, or diverticulitis. Head CT 06/27/24 06:59 IMPRESSION: No acute intracranial findings. Cervical Spine CT 06/27/24 07:58 IMPRESSION: No acute osseous abnormality cervical spine. Multilevel degenerative disc disease. CT Stat Rad Head: Chronic periventricular ischemic demyelination changes seen due to small-vessel disease. No evidence of midline shift. No intracranial hemorrhage. CTA chest impression: There is fluid in the thoracic esophageal lumen, suggestive of gastroesophageal reflux. No acute pulmonary embolism or aortic dissection. Dependent discoid atelectasis seen and lower lobes. CT abdomen and pelvis with contrast Stat Rad: Distension of the stomach and small bowel loops with transition point in the distal ileum consistent with high-grade small bowel obstruction. The caliber of the small bowel loops measuring up to 4.6 cm in diameter. The terminal ileum is decompressed. Moderate prostatomegaly. A CT C-spine no acute fracture no dislocation. Moderate to severe degenerative disc disease changes seen at C3-4, C4-5, C5-6, and C6-7 junction ECG Data EKG #1: Attestation: I personally reviewed and interpreted this ECG as follows: ECG completion date: 06/27/24 ECG completion time: 00:08 Interpretation: Sinus tachycardia at a rate of 133 beats per minute. VA interval 108. QRS 90. QT/QTC 328/406. Good R-wave progression across the precordial leads. No T-wave inversions. EKG #2: Attestation: I personally reviewed and interpreted this ECG as follows: ECG completion date: 06/27/24 ECG completion time: 01:14 Interpretation: Sinus tachycardia at a rate of 144 beats per minute. Possible atrial flutter with conduction. VA interval 134. QRS 83. QT/QTC 297/380. No T-wave inversions. Discharge Plan Discharge Clinical Impression: ORTEGA (acute kidney injury), Syncope, Hyperglycemia, Hyponatremia, Small bowel obstruction, Chronic alcohol use, DJD (degenerative joint disease) of cervical spine, Enlarged prostate, Elevated brain natriuretic peptide (BNP) level, Non-ST elevation AL (NSTEMI) Patient Disposition: Still a Patient Condition: Stable
[2024-06-27 04:57] LABS: Lipase 83 U/L (23-300)
--- NOTE | 2024-06-27 05:44 | PC.NURSE ---
Patient attempted to provide urine sample, unable to do so at this time. Patient refusing straight cath. Patient states he will attempt to provide a urine sample again in a few minutes.
[2024-06-27 06:24] LABS: Influenza A QL RT-PCR Negative (Negative); Influenza B QL RT-PCR Negative (Negative); RSV RNA, RT-PCR Negative (Negative); SARS-CoV-2 RNA PCR Negative (Negative)
[2024-06-27 06:25] LABS: Bilirubin Indirect 0.9 mg/dL (0-1.1)
[2024-06-27 06:40] LABS: NT Pro B Type Natriuretic Pept 3980 pg/mL (19.9-100); Troponin I 0.369 ng/mL (0.000-0.034)
[2024-06-27 07:21] LABS: Magnesium 1.8 mg/dL (1.6-2.3)
[2024-06-27 07:41] LABS: Lactic Acid Reflex 2.5 mmol/L (0.7-2.0)
[2024-06-27] MEDS: PIPERACILLIN/TAZ 4.5G/NS 100ML 4.5 GM/100 ML BAG IVPB (08:01)
[2024-06-27] MEDS: OXYMETAZOLINE HCL 0.05% NAS 15 ML BTL (*BKC) 1 SPRAY NASAL (08:03)
[2024-06-27] MEDS: LORazepam INJ (*CRX) 2 MG/ML VIAL 1 MG IV PUSH (08:03)
[2024-06-27] MEDS: ONDANSETRON INJ 4 MG/2 ML VIAL IV PUSH (08:03)
[2024-06-27 08:43] LABS: Glucose Point of Care 171 mg/dl (65-105)
--- NOTE | 2024-06-27 08:46 | ECG_ITS ---
Test Date: 2024-06-27 08:52:18 Measurements Intervals [place] Rate: 126 P: 38 VT: 122 QRS: -14 QRSD: 83 T: 110 QT: 323 QTc: 468 Interpretive Statements SINUS TACHYCARDIA DELAYED PRECORDIAL R/S TRANSITION CONSIDER INFERIOR INFARCT, AGE INDETERMINATE NONSPECIFIC T-WAVE ABNORMALITY- HIGH LATERAL LEADS ABNORMAL ECG Compared to ECG 06/27/2024 01:14:58 HEART RATE HAS DECREASED Electronically Signed On 06-27-2024 12:15:15 CDT by Kar Bray D.O.
[2024-06-27] MEDS: THIAMINE HCL INJ 100 MG, FOLIC ACID INJ 1 MG, MAGNESIUM SULFATE INJ 1 GM, MULTIVITAMINS... 125 MG IV CONT (09:04)
[2024-06-27] MEDS: THIAMINE HCL 200 MG/2 ML VIAL 100 MG IV PUSH (09:04)
[2024-06-27] MEDS: ASPIRIN 300 MG SUPPOSITORY RECTAL (09:04)
[2024-06-27] MEDS: LACTATED RINGERS 1,000 ML 125 ML IV CONT ×2 (09:05→18:16)
[2024-06-27 09:24] LABS: Reflex Lactic Acid Yes or No Add Lactic
[2024-06-27 09:24] LABS: Add Urine Microscopic? YES; Appearance Urine Turbid (Clear); Bacteria Urine None Seen /hpf; Bilirubin Urine 1+ (Negative); Blood Urine Negative (Negative); Color Urine Dark Yellow (Yellow); Glucose Urine UA Negative (Negative); Hyaline Casts Urine Present /lpf; Ketones Urine Trace mg/dL (Negative); Leukocyte Esterase Ur Trace LEU/UL (Negative); Need Manual Microscopic Reviewed; Nitrate Urine Negative (Negative); Non Pathogenic Casts >20; Protein Urine 2+ mg/dL (Negative); Specific Grav Ur > 1.045 (1.001-1.035); Squamous Epithelial Cell Urine Occasional /hpf (Few)
--- NOTE | 2024-06-27 09:37 | PM.IMHP ---
H&P: HPI History of Present Illness Date/Time: 06/27/24 09:37 Chief Complaint: Abdominal pain Narrative: This is a 64-year-old male who presented to the ED with few days history of nausea vomiting and abdominal pain. He also reports not having bowel movement for past few days. Last night he felt dizzy when he got up to go to the bathroom and hence came to the ER for evaluation In the ED he was afebrile however was tachycardic and borderline blood pressure. Laboratory studies revealed WBC of 7.5 hemoglobin of 18.5 platelet of 2 her 69 sodium low at 130 bicarbonate 20 creatinine was 1.98 baseline unknown blood sugars 218 lactic acid was elevated at 2.5 troponin was elevated 0.369 proBNP 3980. TSH was normal ethyl alcohol level was less than 10 influenza RSV COVID swab was negative Chest abdomen pelvis CTA was performed which showed no PE no aortic dissection. Abdomen pelvis showed small-bowel obstruction with the transition zone in the terminal ileum area. No evidence of appendicitis or diverticulitis. Head CT head no acute intracranial findings Cervical cervical CT with no acute osseous abnormality multilevel degenerative disc disease noted. EKG showed sinus tachycardia with nonspecific ST-T changes. Patient received fluid bolus also received IV Zosyn. Patient admitted in this setting for further treatment. Review of Systems Review of Systems: - CONSTITUTIONAL: Denies weight loss, fever and chills. - HEENT: Denies changes in vision and hearing - RESPIRATORY: Denies SOB and cough. - CV: Denies palpitations and CP. - GI: Reports abdominal pain, nausea, vomiting and denies diarrhea. - : Denies dysuria and urinary frequency. - MSK: Denies myalgia and joint pain. - SKIN: Denies rash and pruritus. - NEUROLOGICAL: Denies headache and syncope. - PSYCHIATRIC: Denies recent changes in mood. Denies anxiety and depression. Meds Home Medications and Allergies Home Medications ?Medication ?Instructions ?Recorded ?Confirmed ?Type No Home Medications 06/27/24 06/27/24 History Allergies Allergy/AdvReac Type Severity Reaction Status Date / Time No Known Allergies Allergy Unknown Verified 06/27/24 11:14 Vital Signs Vital Signs - 24 hr 06/27/24 00:02 06/27/24 01:24 06/27/24 01:30 Temperature 98.5 F Pulse Rate 134 H 139 H 135 H Respiratory Rate 18 18 28 H Blood Pressure 131/97 H Pulse Oximetry 99 95 96 Oxygen Delivery Room Air 06/27/24 01:48 06/27/24 02:08 06/27/24 02:15 Temperature Pulse Rate 130 H 129 H 125 H Respiratory Rate 30 H 30 H 24 H Blood Pressure Pulse Oximetry Oxygen Delivery 06/27/24 03:08 06/27/24 03:15 06/27/24 03:30 Temperature Pulse Rate 131 H 117 H 137 H Respiratory Rate 21 H 20 25 H Blood Pressure 98/83 L Pulse Oximetry Oxygen Delivery 06/27/24 03:31 06/27/24 04:10 06/27/24 04:16 Temperature Pulse Rate 136 H 141 H 140 H Respiratory Rate 22 H 29 H 26 H Blood Pressure Pulse Oximetry Oxygen Delivery 06/27/24 04:30 06/27/24 04:31 06/27/24 05:33 Temperature Pulse Rate 134 H 136 H 127 H Respiratory Rate 24 H 24 H 20 Blood Pressure 104/79 Pulse Oximetry 94 98 Oxygen Delivery 06/27/24 05:45 06/27/24 06:03 06/27/24 06:15 Temperature Pulse Rate 126 H 126 H 122 H Respiratory Rate 20 22 H 24 H Blood Pressure Pulse Oximetry Oxygen Delivery 06/27/24 06:31 06/27/24 06:47 06/27/24 07:00 Temperature Pulse Rate 119 H 125 H 125 H Respiratory Rate 12 24 H 25 H Blood Pressure 105/75 104/78 Pulse Oximetry 95 Oxygen Delivery 06/27/24 07:30 06/27/24 08:00 06/27/24 09:07 Temperature Pulse Rate 121 H 126 H 129 H Respiratory Rate 23 H 22 H 19 Blood Pressure 94/79 L 107/75 95/78 L Pulse Oximetry 95 96 95 Oxygen Delivery 06/27/24 09:10 Temperature Pulse Rate 135 H Respiratory Rate Blood Pressure Pulse Oximetry Oxygen Delivery Exam Narrative: GENERAL: Well-appearing, well-nourished, and in no acute distress. HEAD: Normocephalic, atraumatic. EYES: Non injected, non icteric ENT: Nares clear, no rhinorrhea or epistaxis. NECK: Supple. CHEST: Speaking in full sentences. No respiratory distress. HEART: Regular rate and rhythm. . ABDOMEN: Soft, mildly distended nontender no organomegaly EXTREMITIES: Normal range of motion. No lower extremity edema. SKIN: Warm, dry, no rash. NEURO: No focal deficits. Alert and oriented x3. PSYCH: Normal mood and affect. H&P: Results Labs Labs: Short CBC 06/27/24 Range/Units 01:51 WBC 7.5 (4.5-10.0) K/mm3 Hgb 18.5 H (14.0-18.0) g/dL Hct 54.8 H (42.0-52.0) % Plt Count 269 (150-375) k/mm3 BMP 06/27/24 01:51 Sodium 130 L Potassium 3.8 Chloride 90 L Carbon Dioxide 20 L BUN 48 H Creatinine 1.98 H Glucose 218 H Calcium 9.0 Cardiac Enzymes 06/27/24 Range/Units 06:03 Troponin I 0.369 H* (0.000-0.034) ng/mL Liver Function 06/27/24 06/27/24 Range/Units 01:51 06:03 Total Bilirubin 1.8 H (0.2-1.3) mg/dL Direct Bilirubin 0.0 (0-0.3) mg/dL AST 40 (17-59) U/L ALT 33 (6-50) U/L Alkaline Phosphatase 64 (38-126) U/L Albumin 3.9 (3.5-5.1) g/dL Urine 06/27/24 Range/Units 09:03 Urine Color Dark yellow (Yellow) Urine Appearance Turbid H (Clear) Urine pH 5.0 (5.0-9.0) Ur Specific [place] > 1.045 H (1.001-1.035) Urine Protein 2+ H (Negative) mg/dL Urine Glucose (UA) Negative (Negative) mg/dL Assessment and Plan Assessment and plan (1) Chronic alcohol use: Code(s): F10.90 - Alcohol use, unspecified, uncomplicated Status: Acute (2) Non-ST elevation HI (NSTEMI): Code(s): I21.4 - Non-ST elevation (NSTEMI) myocardial infarction Status: Acute (3) Hyponatremia: Code(s): E87.1 - Hypo-osmolality and hyponatremia Status: Acute (4) Small bowel obstruction: Code(s): K56.609 - Unspecified intestinal obstruction, unspecified as to partial versus complete obstruction Status: Acute (5) ORTEGA (acute kidney injury): Code(s): N17.9 - Acute kidney failure, unspecified Status: Acute (6) DJD (degenerative joint disease) of cervical spine: Code(s): M47.812 - Spondylosis without myelopathy or radiculopathy, cervical region Status: Acute (7) Syncope: Code(s): R55 - Syncope and collapse Status: Acute Plan This is a 64-year-old male who presented to the ED with few days history of nausea vomiting and abdominal pain. He also reports not having bowel movement for past few days. Last night he felt dizzy when he got up to go to the bathroom and hence came to the ER for evaluation In the ED he was afebrile however was tachycardic and borderline blood pressure. Laboratory studies revealed WBC of 7.5 hemoglobin of 18.5 platelet of 2 her 69 sodium low at 130 bicarbonate 20 creatinine was 1.98 baseline unknown blood sugars 218 lactic acid was elevated at 2.5 troponin was elevated 0.369 proBNP 3980. TSH was normal ethyl alcohol level was less than 10 influenza RSV COVID swab was negative Chest abdomen pelvis CTA was performed which showed no PE no aortic dissection. Abdomen pelvis showed small-bowel obstruction with the transition zone in the terminal ileum area. No evidence of appendicitis or diverticulitis. Head CT head no acute intracranial findings Cervical cervical CT with no acute osseous abnormality multilevel degenerative disc disease noted. EKG showed sinus tachycardia with nonspecific ST-T changes. Patient received fluid bolus also received IV Zosyn. Patient admitted in this setting for further treatment. Small bowel obstruction NG tube has been placed continue NG decompression. General surgery has been consulted. ORTEGA creatinine 1.9. Continue IV hydration and monitor renal function Syncope Hyponatremia Chronic alcohol use last drink 06/23/2024 Degenerative joint disease of cervical spine Elevated BNP Elevated troponin Lactic acidosis continue to monitor DVT prophylaxis heparin Code status full code Hospitalist [facility] [facility] Advance Care Plan I have confirmed that the patient's Advanced Care Plan is present, code status is documented, or surrogate decision maker is listed in patient medical record.: Yes Medication Reconciliation I have utilized all available resources to obtain, update and review the patients current medications (includes all prescriptions, OTC, herbals, cannabis, and nutritional supplements).: Yes
[2024-06-27 09:40] LABS: Troponin I 0.422 ng/mL (0.000-0.034)
[2024-06-27 09:50] LABS: Lactic Acid 2.8 mmol/L (0.7-2.0)
--- NOTE | 2024-06-27 12:25 | WPDCN ---
Assessment and Plan Assessment and plan (1) Chronic alcohol use: Code(s): F10.90 - Alcohol use, unspecified, uncomplicated Status: Acute Assessment and Plan: Patient is a heavy alcohol user. Hospitalist service is involved. He is on withdrawal precautions. He has also been given a banana bag. (2) Small bowel obstruction: Code(s): K56.609 - Unspecified intestinal obstruction, unspecified as to partial versus complete obstruction Status: Acute Assessment and Plan: Appears to have a distal small-bowel obstruction area of terminal ileum. This could be due to de Vern adhesion or mass. There seems to be a transition point on my view of the images from the CT scan. His abdomen is distended and is lactic acid level is 2.8 but otherwise is abdomen is relatively benign aside from distension. Nasogastric tube is in place decompressing the stomach and small bowel. Output from the nasogastric tube is copious amounts of brownish to biliary tinged fluid. Over a L of fluid has been aspirated so far. I think for now continue nasogastric tube decompression is indicated. We will start him on IV antibiotics and hydrated with IV fluids since he seems to be a bit dehydrated with a hemoglobin 18. White blood count is normal. Will follow up lactic acid level. If he does not resolve improve relatively quickly then he likely will need to have surgical management. Will follow. HPI Data of Consult Date/Time: 06/27/24 12:25 Requesting Physician: Lilibeth Rodriguez MD Primary Care Provider: [facility] PH[facility]ICIAN Consult Narrative Reason for consult: Small-bowel obstruction Narrative: Anuj Cavazos is a 64 year old male who was admitted to the hospital after a syncopal episode. Apparently he has had poor p.o. intake and had some nausea vomiting for past several days. His last bowel movement was at least 4 days ago. He denies placing any flatus. Upon workup in the emergency room had a CT scan abdomen pelvis done which showed dilated loops of small bowel with transition point in the right mid abdomen without evidence of perforation or free air. Small umbilical hernia. White blood count was 7500. Did have 89% neutrophils with a left shift. Lactic acid was 2.3 which is then followed the 2nd level which is 2.8. He is a heavy alcohol user. No ascites seen on CT scan and no evidence of nodular liver. Total bili was 1.8. INR is 1.1. Nasogastric tube has been placed decompress the stomach in copious amounts of brown bilious tinged fluid is being drained from the stomach. His abdominal pain is little better after placement of nasogastric tube. He has had a prior inguinal hernia repair in the past but no other abdominal surgery. Review of Systems Review of Systems: The remainder of the review of systems to include constitutional, HEENT, cardiovascular, respiratory, GI, , integumentary, musculoskeletal, endocrine, immunologic, hematologic, psychiatric, and neurologic are all negative except for which is mentioned above in the HPI. Meds Home Medications and Allergies Home Medications ?Medication ?Instructions ?Recorded ?Confirmed ?Type No Home Medications 06/27/24 06/27/24 History Allergies Allergy/AdvReac Type Severity Reaction Status Date / Time No Known Allergies Allergy Unknown Verified 06/27/24 11:14 Vital Signs Vital Signs - 24 hr 06/27/24 00:02 06/27/24 01:24 06/27/24 01:30 Temperature 36.9 C Pulse Rate 134 H 139 H 135 H Respiratory Rate 18 18 28 H Blood Pressure 131/97 H Pulse Oximetry 99 95 96 Oxygen Delivery Room Air 06/27/24 01:48 06/27/24 02:08 06/27/24 02:15 Temperature Pulse Rate 130 H 129 H 125 H Respiratory Rate 30 H 30 H 24 H Blood Pressure Pulse Oximetry Oxygen Delivery 06/27/24 03:08 06/27/24 03:15 06/27/24 03:30 Temperature Pulse Rate 131 H 117 H 137 H Respiratory Rate 21 H 20 25 H Blood Pressure 98/83 L Pulse Oximetry Oxygen Delivery 06/27/24 03:31 06/27/24 04:10 06/27/24 04:16 Temperature Pulse Rate 136 H 141 H 140 H Respiratory Rate 22 H 29 H 26 H Blood Pressure Pulse Oximetry Oxygen Delivery 06/27/24 04:30 06/27/24 04:31 06/27/24 05:33 Temperature Pulse Rate 134 H 136 H 127 H Respiratory Rate 24 H 24 H 20 Blood Pressure 104/79 Pulse Oximetry 94 98 Oxygen Delivery 06/27/24 05:45 06/27/24 06:03 06/27/24 06:15 Temperature Pulse Rate 126 H 126 H 122 H Respiratory Rate 20 22 H 24 H Blood Pressure Pulse Oximetry Oxygen Delivery 06/27/24 06:31 06/27/24 06:47 06/27/24 07:00 Temperature Pulse Rate 119 H 125 H 125 H Respiratory Rate 12 24 H 25 H Blood Pressure 105/75 104/78 Pulse Oximetry 95 Oxygen Delivery 06/27/24 07:30 06/27/24 08:00 06/27/24 09:07 Temperature Pulse Rate 121 H 126 H 129 H Respiratory Rate 23 H 22 H 19 Blood Pressure 94/79 L 107/75 95/78 L Pulse Oximetry 95 96 95 Oxygen Delivery 06/27/24 09:10 06/27/24 10:00 06/27/24 11:30 Temperature Pulse Rate 135 H 114 H 106 H Respiratory Rate 13 24 H Blood Pressure 95/72 L 104/72 Pulse Oximetry 95 100 Oxygen Delivery 06/27/24 12:00 Temperature Pulse Rate 109 H Respiratory Rate 16 Blood Pressure 104/74 Pulse Oximetry 100 Oxygen Delivery Exam Const: General: comfortable and no acute distress HENMT: Ears: TM's normal bilaterally Face/Nose/Sinus: Normal nares present Mouth: Yes moist mucous membranes Other: NG tube in place. Eyes: General: appearance normal, both eyes and all related structures Sclera: sclerae normal Pupils: Equal, round and reactive pupils present EOM: EOMs intact bilaterally Neck: Neck: supple and no JVD Resp: Effort & Inspection: normal respiratory effort Auscultation: clear to auscultation bilaterally Cardio: Rate: regular rate Rhythm: regular rhythm GI: Other: Abdomen is hnyc-[id number] distended. It is soft. He has some minimal tenderness to palpation the right side of the abdomen. No ventral scars are noted. Has a small reducible umbilical hernia. No guarding or diffuse peritoneal signs. Skin: General skin exam: normal color Neuro: General: gait normal Speech: normal speech Motor exam (neuro): 5/5 motor strength present throughout Sensory Exam: normal sensation Psych: Mental Status: mental status grossly normal Affect: normal affect Results Labs 06/27/24 01:51 06/27/24 01:51 Labs: Short CBC 06/27/24 Range/Units 01:51 WBC 7.5 (4.5-10.0) K/mm3 Hgb 18.5 H (14.0-18.0) g/dL Hct 54.8 H (42.0-52.0) % Plt Count 269 (150-375) k/mm3 BMP 04/06/25 01:51 Sodium 130 L Potassium 3.8 Chloride 90 L Carbon Dioxide 20 L BUN 48 H Creatinine 1.98 H Glucose 218 H Calcium 9.0 Cardiac Enzymes 06/27/24 06/27/24 Range/Units 06:03 09:03 Troponin I 0.369 H* 0.422 H* (0.000-0.034) ng/mL Liver Function 06/27/24 06/27/24 Range/Units 01:51 06:03 Total Bilirubin 1.8 H (0.2-1.3) mg/dL Direct Bilirubin 0.0 (0-0.3) mg/dL AST 40 (17-59) U/L ALT 33 (6-50) U/L Alkaline Phosphatase 64 (38-126) U/L Albumin 3.9 (3.5-5.1) g/dL Urine 06/27/24 Range/Units 09:03 Urine Color Dark yellow (Yellow) Urine Appearance Turbid H (Clear) Urine pH 5.0 (5.0-9.0) Ur Specific [place] > 1.045 H (1.001-1.035) Urine Protein 2+ H (Negative) mg/dL Urine Glucose (UA) Negative (Negative) mg/dL Imaging Radiologist's impression: CT Scan Report Signed Patient: Anuj Cavazos : 1960 MR#: [id number] Age: 64 Acct:[id number] Loc: [facility] ADM Date: 06/27/24Attending Dr: Ordering Physician: Adore Smith MD Date of Service: 06/27/24 Procedure(s): CTA chest PE abdomen pel Accession Number(s): [id number] cc: Adore Smith MD; [facility]INE[facility] PHYSICIAN~ CTA chest PE abdomen pel Ordering provider: Adore Smith MD History: . unexplained tachycardia; epigastric pain . Comparison: None. Technique: CT angiogram chest was performed following timed intravenous injection of contrast. Thin slice axial images and reformatted coronal images were obtained. Three dimensional reformatted images of the chest were also obtained using a [employer] workstation. Also, CT of the abdomen and pelvis was performed with IV contrast. . Automated exposure control and iterative reconstruction technique were employed. The dose-length product was 1215.92 mGy-cm. 100 ML Omnipaque 350 was given IV. FINDINGS: CHEST: --PULMONARY ARTERIES: No pulmonary embolus. --VISUALIZED THORACIC INLET: Normal. --MEDIASTINUM: Aorta/coronary arteries: Mild atheromatous disease. Heart/other: The heart is not enlarged. . Lymph nodes: No mediastinal or hilar adenopathy. Fluid seen in the esophagus which may indicate reflux esophagitis.0 --LUNGS: No pulmonary nodules or masses. No infiltrates or effusions. No pneumothorax. Dependent atelectatic changes are seen. --MUSCULOSKELETAL: Bones: Age appropriate degenerative changes of the spine. Superficial soft tissues: The superficial soft tissues are normal. ABDOMEN/PELVIS: --MUSCULOSKELETAL: Superficial soft tissues: The superficial soft tissues are normal. Bones: Age appropriate degenerative changes of the spine. --UPPER ABDOMINAL ORGANS: Liver: Normal. Gallbladder: Distended with no stones. Spleen: Normal. Stomach/duodenum: Distended with fluids. Pancreas: Normal. Slightly prominent pancreatic duct. Adrenals: Normal. Kidneys: Normal. --PELVIC ORGANS: The bladder is underfilled. No bladder stones. Enlarged prostate. --BOWEL AND MESENTERY: Colon: No evidence of diverticulitis.. No evidence of appendicitis. Small Bowel: Dilated small bowel is seen suggestive of small bowel obstruction. The transition areas seen in the terminal ileum. The small bowel measures 4.6 cm. Peritoneum/mesentery: No free air or free fluid. No mesenteric lymphadenopathy. --RETROPERITONEUM: Mild atheromatous disease of the abdominal aorta. No retroperitoneal lymphadenopathy. IMPRESSION: CHEST: 1. No pulmonary embolism. No aortic dissection 2. No acute cardiopulmonary pathology. ABDOMEN/PELVIS: 1. Small bowel obstruction with the transition zone in the terminal ileum area. Clinical correlation advised. 2. No evidence of appendicitis, or diverticulitis. Reviewed, dictated and finalized at location A. Please be advised this is a medical document. It is intended for [id number] communication. It is written in medical language and may contain unfamiliar abbreviations or verbiage. Medical documents are intended to carry relevant information, facts as evident, and the clinical opinion of the practitioner at the time of the encounter. This report may have been done utilizing a voice recognition system. Attempts have been made to correct errors. However, there may be uncorrected grammatical, spelling, and recognition errors present. The file time of this note does not necessarily represent the time of service. Dictated By: Surya Valentine MD 06/27/24 0617 Signed By: <Electronically signed by Surya Valentine MD in [place]>
[2024-06-27] MEDS: PIPERACILLN/TAZ 3.375GM/NS50ML 3.375 GM/50 ML BAG IVPB ×2 (13:10→18:17)
--- NOTE | 2024-06-27 13:46 | ADMGEN ---
This patient, Anuj Cavazos, was admitted to IMU Room 231-01. Patient/family oriented to hospital policies and general routines including ID bracelet, bed and alarms, visiting hours, pain management, procedures, bathroom and other care routines, personal items, smoking policy, room service/diet, and visiting hours. Information on how to activate the Rapid Response Team has been discussed. Patient/Family are encouraged to report perceived risks to care and to ask questions if they do not understand what they are told or what they should do.
[2024-06-27 17:10] LABS: Lactic Acid Reflex 1.2 mmol/L (0.7-2.0)
[2024-06-27 18:24] LABS: Glucose Point of Care 120 mg/dl (65-105)
[2024-06-28] VITALS (10 sets, daily range): BP systolic 133–150; BP diastolic 83–96; PULSE 100–120; RESP 16–20; TEMP 35.7–36.9; O2SAT 95–98
--- NOTE | 2024-06-28 | ECHO_ITS ---
Patient Info Name: Anuj Cavazos Age: 64 years : 1960 Gender: Male Ht: 69 in Wt: 158 lbs BSA: 1.87 m2 HR: 115 bpm BP: 142 / 94 mmHg Heart Rhythm: Tachycardia Technical Quality: Fair Exam Date: 06/28/2024 8:53 AM Exam Location: Echo Lab Patient Status: Inpatient Admit Date: 06/28/2024 Staff Ordering Physician: Kevin Desai MD Orthoptist: Rozina Jefferson RDCS Attending Provider: Lilibeth Rodriguez MD Exam Type: CA echo dop color flow w con Study Info Indications - Elevated troponin Complete two-dimensional, color flow and Doppler transthoracic echocardiogram is performed with contrast to opacify the left ventricle and to improve the deliniation of the left ventricle endocardial borders. Contrast/Agitated Saline Contrast/Ag. Saline: Definity Amount: 2.00 ml Existing IV Access: Yes IV Access Condition: patent with no signs of infiltration Summary 1. Left ventricular chamber dimension is normal. 2. Left ventricular systolic function is hyperdynamic, estimated at >70%. 3. There is moderately increased left ventricular wall thickness. 4. The left ventricular diastolic function is abnormal. 5. Left atrial chamber dimension is mildly enlarged. 6. There is mild tricuspid valve regurgitation. 7. There is small pericardial effusion. Left Ventricle Left ventricular chamber dimension is normal. Left ventricular systolic function is hyperdynamic, estimated at >70%. There is moderately increased left ventricular wall thickness. The left ventricular diastolic function is abnormal. Right Ventricle Right ventricular chamber dimension is normal. Right ventricular systolic function is normal. Left Atria Left atrial chamber dimension is mildly enlarged. Right Atria Right atrial chamber dimension is normal. Atrial Septum Intact interatrial septum visualized by color flow imaging. Aortic Valve The aortic valve is trileaflet. There is mild aortic valve sclerosis. There is no aortic valve stenosis. There is trace aortic valve regurgitation. Pulmonic Valve The pulmonic valve is normal. There is no pulmonic valve stenosis. There is trace pulmonic regurgitation. Mitral Valve The mitral valve has thickened leaflets. There is no mitral valve stenosis. There is trace mitral valve regurgitation. The mitral valve annulus is moderately calcified. Tricuspid Valve The tricuspid valve leaflets are normal. There is no significant tricuspid valve stenosis. There is mild tricuspid valve regurgitation. No pulmonary hypertension, estimated pulmonary arterial systolic pressure is 29 mmHg. Pericardium/Pleural The pericardium appears normal. There is small pericardial effusion. Inferior Vena Cava Normal inferior vena cava with >50% collapse upon inspiration consistent with normal right atrial pressure, 10 mmHg. Aorta The aortic root size at the sinus of Valsalva is normal. Left Ventricular Outflow Tract Name Value Normal LVOT 2D LVOT Diameter 1.82 cm LVOT Doppler LVOT Peak Gradient 4 mmHg LVOT Mean Gradient 3 mmHg LVOT VTI 19.10 cm LVOT VTI/AV VTI Ratio 1.08 LVOT Stroke Volume 49.72 ml LVOT CO 12.29 l/min LVOT CI 6.57 L/min/m2 Tricuspid Valve Name Value Normal TV Regurgitation Doppler TR Peak Velocity 215.44 cm/s TR Peak Gradient 19 mmHg Estimated PAP/RSVP RA Pressure 10 mmHg <=5 PA Systolic Pressure 29 mmHg <36 RV Systolic Pressure 29 mmHg <36 Aorta Name Value Normal Ascending Aorta Ao Root Diameter (MM) 3.43 cm Ao Root Diam Index (MM) 1.83 cm/m2 Aortic Valve Name Value Normal AV Doppler AV Peak Velocity 116.57 cm/s AV Peak Gradient 5 mmHg AV Mean Gradient 4 mmHg AV VTI 17.74 cm AV Area (Cont Eq VTI) 2.80 cm2 >=3.00 AV Area (Cont Eq Sourav) 2.20 cm2 AV Regurgitation 2D LVOT Area 2.60 cm2 Ventricles Name Value Normal LV Dimensions 2D/MM IVS Diastolic Thickness (2D) 1.41 cm 0.60-1.00 LVID Diastole (2D) 3.37 cm 4.20-5.80 LVIW Diastolic Thickness (2D) 1.16 cm 0.60-1.00 LVID Systole (2D) 2.25 cm 2.50-4.00 LVOT Diameter 1.82 cm LV Mass (2D Cubed) 142.66 g 88.00-224.00 LV Mass Index (2D Cubed) 0.01 g/cm2 0.00-0.01 Relative Wall Thickness (2D) 0.69 LV Fractional Shortening/Ejection Fraction 2D/MM LV Fractional Shortening (2D) 33 % 25-43 LV EF (2D Teichmanuelz) 63 % 52-72 LV Diastolic Volume (4C MOD) 63.17 ml LV EF (4C MOD) 78 % LV Diastolic Volume (2C MOD) 38.34 ml LV EF (2C MOD) 65 % LV Diastolic Volume (BP MOD) 50.19 ml 62.00-150.00 LV Diastolic Volume Index (BP MOD) 0.03 l/m2 0.03-0.07 LV Systolic Volume (BP MOD) 13.75 ml 21.00-61.00 LV Systolic Volume Index (BP MOD) 0.01 l/m2 0.01-0.03 LV EF (BP MOD) 73 % 52-72 LV Diastolic Length (4C) 7.45 cm LV Systolic Length (4C) 5.51 cm LV Stroke Volume (4C MOD) 48.99 ml RV Dimensions 2D/MM RVID Diastole (2D) 3.21 cm 2.50-3.50 Atria Name Value Normal LA Dimensions LA Dimension (MM) 3.23 cm 3.00-4.10 LA Volume (4C A-L) 35.29 ml LA Volume (BP A-L) 29.50 ml RA Dimensions RA Area (4C) 15.45 cm2 <=18.00 Report Signatures
[2024-06-28] MEDS: PIPERACILLN/TAZ 3.375GM/NS50ML 3.375 GM/50 ML BAG IVPB ×4 (00:18→20:31)
[2024-06-28 00:34] LABS: Glucose Point of Care 102 mg/dl (65-105)
[2024-06-28] MEDS: LACTATED RINGERS 1,000 ML 150 ML IV CONT ×3 (04:00→18:05)
[2024-06-28 04:59] LABS: Basophils Percent Auto 0.1 % (0.2-1.2); Eosinophils Absolute Auto 0.1 K/mm3 (0-0.3); Eosinophils Percent Auto 0.6 % (0-4.4); Hematocrit 47.6 % (42.0-52.0); Hemoglobin 15.8 g/dL (14.0-18.0); Immature Granulocyte Absolute 0.03 K/mm3 (0.00-0.031); Immature Granulocyte Percent A 0.4 % (0-0.5); Lymphocytes Absolute Auto 1.22 K/mm3 (0.9-3.2); Lymphocytes Percent Auto 15.4 % (18.3-44.2); Mean Corpuscular HGB Conc 33.2 g/dl (32-36); Mean Corpuscular Hemoglobin 31.5 pg (26-34); Mean Platelet Volume 9.4 fl (7.4-10.4); Monocytes Absolute Auto 1.6 K/mm3 (0.1-0.6); Monocytes Percent Auto 19.9 % (2.6-8.5); Neutrophils Percent Auto 63.6 % (45.5-73.1); Platelet Count Result 249 k/mm3 (150-375); Red Blood Count 5.01 M/mm3 (4.6-6.20); Red Cell Distribution Width 13.5 % (11.5-14.5); White Blood Count 7.9 K/mm3 (4.5-10.0)
[2024-06-28 05:16] LABS: Alanine Aminotransferase 24 U/L (6-50); Albumin Level 3.3 g/dL (3.5-5.1); Alkaline Phosphatase 41 U/L (38-126); Anion Gap 13 mmol/L (4-12); Aspartate Amino Transferase 50 U/L (17-59); Bilirubin,Total 1.4 mg/dL (0.2-1.3); Blood Urea Nitrogen 41 mg/dL (9-20); Calcium 8.8 mg/dL (8.4-10.2); Carbon Dioxide 24 mmol/L (22-30); Chloride 97 mmol/L (98-107); Estimated CRCL calculation 46 ml/min; Estimated Glomerular Filt Rate 52; Glucose 101 mg/dL (65-110); Magnesium 2.5 mg/dL (1.6-2.3); Potassium 3.1 mmol/L (3.4-5.0); Sodium 134 mmol/L (137-145)
[2024-06-28 05:17] LABS: Lactic Acid Reflex 1.1 mmol/L (0.7-2.0)
[2024-06-28 05:52] LABS: Glucose Point of Care 97 mg/dl (65-105)
[2024-06-28] MEDS: PERFLUTREN LIPID MICROSPHERES 1.5 ML VIAL DILUTED TO 10 ML TOTAL VOLUME IV PUSH (09:00)
[2024-06-28] MEDS: PANTOPRAZOLE SODIUM IV 40 MG VIAL IV PUSH (09:37)
[2024-06-28] MEDS: POTASSIUM CHLORIDE INJ 40 MEQ in SODIUM CHLORIDE 0.9% IV 500 ML 130 MEQ IVPB (09:37)
[2024-06-28] MEDS: THIAMINE HCL 200 MG/2 ML VIAL 100 MG IV PUSH (09:38)
--- NOTE | 2024-06-28 10:59 | PM.IMPN ---
Progress Note: A&P Assessment and Plan (1) Chronic alcohol use: Code(s): F10.90 - Alcohol use, unspecified, uncomplicated Status: Acute (2) Non-ST elevation SC (NSTEMI): Code(s): I21.4 - Non-ST elevation (NSTEMI) myocardial infarction Status: Acute (3) Hyponatremia: Code(s): E87.1 - Hypo-osmolality and hyponatremia Status: Acute (4) Small bowel obstruction: Code(s): K56.609 - Unspecified intestinal obstruction, unspecified as to partial versus complete obstruction Status: Acute (5) ORTEGA (acute kidney injury): Code(s): N17.9 - Acute kidney failure, unspecified Status: Acute (6) DJD (degenerative joint disease) of cervical spine: Code(s): M47.812 - Spondylosis without myelopathy or radiculopathy, cervical region Status: Acute (7) Syncope: Code(s): R55 - Syncope and collapse Status: Acute Plan This is a 64-year-old male who presented to the ED with few days history of nausea vomiting and abdominal pain. He also reports not having bowel movement for past few days. Last night he felt dizzy when he got up to go to the bathroom and hence came to the ER for evaluation In the ED he was afebrile however was tachycardic and borderline blood pressure. Laboratory studies revealed WBC of 7.5 hemoglobin of 18.5 platelet of 2 her 69 sodium low at 130 bicarbonate 20 creatinine was 1.98 baseline unknown blood sugars 218 lactic acid was elevated at 2.5 troponin was elevated 0.369 proBNP 3980. TSH was normal ethyl alcohol level was less than 10 influenza RSV COVID swab was negative Chest abdomen pelvis CTA was performed which showed no PE no aortic dissection. Abdomen pelvis showed small-bowel obstruction with the transition zone in the terminal ileum area. No evidence of appendicitis or diverticulitis. Head CT head no acute intracranial findings Cervical cervical CT with no acute osseous abnormality multilevel degenerative disc disease noted. EKG showed sinus tachycardia with nonspecific ST-T changes. Patient received fluid bolus also received IV Zosyn. Patient admitted in this setting for further treatment. Small bowel obstruction NG tube has been placed continue NG decompression. General surgery has been consulted. ORTEGA creatinine 1.9. Continue IV hydration and monitor renal function. Creatinine improving Syncope Hyponatremia improving Chronic alcohol use last drink 06/23/2024 Degenerative joint disease of cervical spine Elevated BNP Elevated troponin Lactic acidosis continue to monitor and resolved DVT prophylaxis Lovenox Code status full code Subjective Date/time seen: 06/28/24 10:59 Interval history: No overnight events. Feels better. Denies any abdominal pain. No nausea vomiting. NG in place. No bowel movement. Review of Systems Review of Systems: All systems reviewed & are unremarkable except as noted in HPI and below Exam Narrative: GENERAL: Well-appearing, well-nourished, and in no acute distress. HEAD: Normocephalic, atraumatic. EYES: Non injected, non icteric ENT: Nares clear, no rhinorrhea or epistaxis. NG in place NECK: Supple. CHEST: Speaking in full sentences. No respiratory distress. HEART: Regular rate and rhythm. . ABDOMEN: Soft, mildly distended nontender no organomegaly EXTREMITIES: Normal range of motion. No lower extremity edema. SKIN: Warm, dry, no rash. NEURO: No focal deficits. Alert and oriented x3. PSYCH: Normal mood and affect. Objective Data Vital Signs Vital Signs: Vital Signs - 24 hr 06/27/24 11:30 06/27/24 12:00 06/27/24 13:00 Temperature Pulse Rate 106 H 109 H 105 H Pulse Rate [Pedal (Dorsalis Pedis)] Respiratory Rate 24 H 16 18 Blood Pressure 104/72 104/74 87/71 L Pulse Oximetry 100 100 100 Oxygen Delivery 06/27/24 13:30 06/27/24 13:35 06/27/24 14:00 Temperature 98.3 F Pulse Rate 108 H 105 H 103 H Pulse Rate [Pedal (Dorsalis Pedis)] Respiratory Rate 18 20 Blood Pressure 111/89 121/74 Pulse Oximetry 100 98 Oxygen Delivery 06/27/24 15:52 06/27/24 16:00 06/27/24 18:00 Temperature 98.4 F Pulse Rate 100 103 H 105 H Pulse Rate [Pedal (Dorsalis Pedis)] Respiratory Rate 16 Blood Pressure 111/73 Pulse Oximetry 97 Oxygen Delivery 06/27/24 20:00 06/27/24 20:00 06/27/24 20:00 Temperature 98.1 F Pulse Rate 120 H 107 H Pulse Rate [Pedal (Dorsalis Pedis)] Respiratory Rate 16 Blood Pressure 152/89 H Pulse Oximetry 96 Oxygen Delivery Room Air 06/28/24 00:00 06/28/24 00:00 06/28/24 00:00 Temperature 98 F Pulse Rate 114 H 120 H Pulse Rate [Pedal (Dorsalis Pedis)] Respiratory Rate 16 Blood Pressure 137/83 Pulse Oximetry 96 Oxygen Delivery Room Air 06/28/24 04:00 06/28/24 04:00 06/28/24 04:00 Temperature 98.4 F Pulse Rate 115 H 118 H Pulse Rate [Pedal (Dorsalis Pedis)] Respiratory Rate 20 Blood Pressure 142/94 H Pulse Oximetry 98 Oxygen Delivery Room Air 06/28/24 07:17 06/28/24 08:00 06/28/24 08:00 Temperature 98 F Pulse Rate 105 H 107 H Pulse Rate [Pedal (Dorsalis Pedis)] 101 H Respiratory Rate 16 Blood Pressure 133/84 Pulse Oximetry 95 Oxygen Delivery 06/28/24 10:00 Temperature Pulse Rate 108 H Pulse Rate [Pedal (Dorsalis Pedis)] Respiratory Rate Blood Pressure Pulse Oximetry Oxygen Delivery Intake/Output Intake/Output: Intake & Output 06/25/24 06/26/24 06/27/24 06/28/24 23:59 23:59 23:59 23:59 Intake Total 3150 1942.5 Output Total 2100 2415 Balance 1050 -472.5 Meds/Results Medications: Active Medications Generic Name Dose Route Start Last Admin Trade Name Freq PRN Reason Stop Dose Admin Acetaminophen 650 mg 06/27/24 08:21 Acetaminophen 325 Mg Tablet PO Q4H PRN Mild Pain (1-3) or Fever Chlordiazepoxide HCl 25 mg 06/27/24 07:40 Chlordiazepoxide (*Crx) 25 Mg Capsule PO Q6H PRN Withdrawal Hydromorphone HCl 0.5 mg 06/27/24 08:21 Hydromorphone Hcl Inj (*Crx) 1 Mg/Ml Syr IV PUSH Q4H PRN Pain Rated 7-10 Lactated Ringer's 1,000 mls @ 150 mls/hr 06/27/24 08:25 06/28/24 09:37 Lr - Lactated Ringers Iv IV CONT 150 mls/hr .Q6H40M VANDANA Administration Piperacillin/Tazobactam/Dextrose 3.375 gm in 50 mls @ 100 mls/hr 06/27/24 18:00 06/28/24 06:27 Zosyn 3.375 Gm/Ns 50 Ml IVPB Infused Q6H VANDANA Infusion Potassium Chloride 40 meq/ 520 mls @ 130 mls/hr 06/28/24 08:00 06/28/24 09:37 Sodium Chloride IVPB 06/28/24 11:59 130 mls/hr ONCE ONE Administration Potassium Chloride 40 meq/ 520 mls @ 130 mls/hr 06/28/24 09:00 Sodium Chloride IVPB 06/28/24 12:59 ONCE ONE Ondansetron HCl 4 mg 06/27/24 08:21 Ondansetron Inj 4 Mg/2 Ml Vial IV PUSH Q4H PRN Nausea Pantoprazole Sodium 40 mg 06/28/24 09:00 06/28/24 09:37 Pantoprazole Sodium Iv 40 Mg Vial IV PUSH 40 mg QAM VANDANA Administration Perflutren Lipid Microsphere 0 ml 06/27/24 09:44 Perflutren Lipid Microspheres 1.5 Ml Vial Diluted To 10 Ml Total Volume IV PUSH 06/30/24 09:44 ONCE PRN adequate visualization Protocol Thiamine HCl 100 mg 06/27/24 09:00 06/28/24 09:38 Thiamine Hcl 200 Mg/2 Ml Vial IV PUSH 100 mg DAILY VANDANA Administration Radiology Results: ITS Impressions Chest/Abdomen/Pelvis CTA 06/27/24 06:17 IMPRESSION: CHEST: 1. No pulmonary embolism. No aortic dissection 2. No acute cardiopulmonary pathology. ABDOMEN/PELVIS: 1. Small bowel obstruction with the transition zone in the terminal ileum area. Clinical correlation advised. 2. No evidence of appendicitis, or diverticulitis. Head CT 06/27/24 06:59 IMPRESSION: No acute intracranial findings. Cervical Spine CT 06/27/24 07:58 IMPRESSION: No acute osseous abnormality cervical spine. Multilevel degenerative disc disease. Labs Labs: Laboratory Results - last 24 hr 06/27/24 06/27/24 06/28/24 16:51 18:21 00:23 WBC RBC Hgb Hct MCV MCH MCHC RDW Plt Count MPV Immature Gran % (Auto) Neut % (Auto) Lymph % (Auto) [place] % (Auto) Eos % (Auto) Baso % (Auto) Lymph # (Auto) [place] # (Auto) Eos # (Auto) Baso # (Auto) Abs Immat Gran (auto) Absolute Neuts (auto) Absolute Nucleated RBC Nucleated RBC % Sodium Potassium Chloride Carbon Dioxide Anion Gap BUN Creatinine Estim Creat Clear Calc Estimated GFR Glucose POC Capillary Glucose 120 H 102 Lactic Acid 1.2 Calcium Magnesium Total Bilirubin AST ALT Alkaline Phosphatase Total Protein Albumin Blood Type Antibody Screen 06/28/24 06/28/24 04:39 05:46 WBC 7.9 RBC 5.01 Hgb 15.8 Hct 47.6 MCV 95.0 MCH 31.5 MCHC 33.2 RDW 13.5 Plt Count 249 MPV 9.4 Immature Gran % (Auto) 0.4 Neut % (Auto) 63.6 Lymph % (Auto) 15.4 L [place] % (Auto) 19.9 H Eos % (Auto) 0.6 Baso % (Auto) 0.1 L Lymph # (Auto) 1.22 [place] # (Auto) 1.6 H Eos # (Auto) 0.1 Baso # (Auto) 0.0 Abs Immat Gran (auto) 0.03 Absolute Neuts (auto) 5.0 Absolute Nucleated RBC 0.000 Nucleated RBC % 0.0 Sodium 134 L Potassium 3.1 L Chloride 97 L Carbon Dioxide 24 Anion Gap 13 H BUN 41 H Creatinine 1.36 H Estim Creat Clear Calc 46 Estimated GFR 52 L Glucose 101 POC Capillary Glucose 97 Lactic Acid 1.1 Calcium 8.8 Magnesium 2.5 H Total Bilirubin 1.4 H AST 50 ALT 24 Alkaline Phosphatase 41 Total Protein 6.0 L Albumin 3.3 L Blood Type O Positive Antibody Screen Negative
--- NOTE | 2024-06-28 11:02 | IVDEFINITY ---
Prior to administration of IV Definity the patient was educated on the risks and benefits of the imaging enhancing agent including potential adverse side effects. The patient verbalized understanding. Allergies were verified. No exclusion criteria were identified and at least one of the following inclusion criteria were met: 1) physician request, 2) patient technically difficult to image (per the [place] [employer] guidelines of two or more segments not discernable within the apical view), or 3) questionable left ventricular function. ?
[2024-06-28 11:45] LABS: Glucose Point of Care 109 mg/dl (65-105)
--- NOTE | 2024-06-28 11:49 | P.PNGS_ITS ---
Progress Note: A&P Assessment and Plan (1) Small bowel obstruction: Code(s): K56.609 - Unspecified intestinal obstruction, unspecified as to partial versus complete obstruction Status: Acute Assessment and Plan: Distal small-bowel obstruction in the area of terminal ileum. This could be due to de Vern adhesion or mass. He is having less abdominal pain, but still no bowel function and high NG output. Potassium being replaced this morning. Will order stat water soluble small-bowel follow-through this morning. Discussed with the patient that if there is evidence of a high-grade small-bowel obstruction, then he will need an exploratory laparotomy. Will follow along closely. Continue NG tube decompression, bowel rest, and IV fluids for now. (2) Chronic alcohol use: Code(s): F10.90 - Alcohol use, unspecified, uncomplicated Status: Acute Plan I have discussed the patient's case and plan of care with Dr. Plata. Subjective Subjective Date/Time Seen: 06/28/24 11:49 Patient reports: feels better, pain is less, no flatus and no bowel movement Interval history: Feeling better and his abdominal pain has improved. No flatus or BM. Large amount of NG output in the past 24 hours. He had about 500 cc overnight but already nearly 1200 cc out in the past 3 hours this morning. Exam Const: General: comfortable and no acute distress Orientation/consciousness: patient oriented x3 GI: Inspection: other (mildly distended) GI Palp: Yes Soft to palpation, Yes Tenderness to palpation present (GI) (diffusely tender), No Guarding due to palpation present (GI) and No Rebound tenderness present Auscultation: Hypoactive bowel sounds present (few bowel sounds ) Other: copious amount of bilious-appearing drainage in NG canister Objective Data Vital Signs Vital Signs: Vital Signs - 24 hr 06/27/24 12:00 06/27/24 13:00 06/27/24 13:30 Temperature Pulse Rate 109 H 105 H 108 H Pulse Rate [Pedal (Dorsalis Pedis)] Respiratory Rate 16 18 18 Blood Pressure 104/74 87/71 L 111/89 Pulse Oximetry 100 100 100 Oxygen Delivery 06/27/24 13:35 06/27/24 14:00 06/27/24 15:52 Temperature 98.3 F 98.4 F Pulse Rate 105 H 103 H 100 Pulse Rate [Pedal (Dorsalis Pedis)] Respiratory Rate 20 16 Blood Pressure 121/74 111/73 Pulse Oximetry 98 97 Oxygen Delivery 06/27/24 16:00 06/27/24 18:00 06/27/24 20:00 Temperature Pulse Rate 103 H 105 H Pulse Rate [Pedal (Dorsalis Pedis)] Respiratory Rate Blood Pressure Pulse Oximetry Oxygen Delivery Room Air 06/27/24 20:00 06/27/24 20:00 06/28/24 00:00 Temperature 98.1 F Pulse Rate 120 H 107 H 114 H Pulse Rate [Pedal (Dorsalis Pedis)] Respiratory Rate 16 Blood Pressure 152/89 H Pulse Oximetry 96 Oxygen Delivery 06/28/24 00:00 06/28/24 00:00 06/28/24 04:00 Temperature 98 F Pulse Rate 120 H Pulse Rate [Pedal (Dorsalis Pedis)] Respiratory Rate 16 Blood Pressure 137/83 Pulse Oximetry 96 Oxygen Delivery Room Air Room Air 06/28/24 04:00 06/28/24 04:00 06/28/24 07:17 Temperature 98.4 F 98 F Pulse Rate 115 H 118 H 105 H Pulse Rate [Pedal (Dorsalis Pedis)] Respiratory Rate 20 16 Blood Pressure 142/94 H 133/84 Pulse Oximetry 98 95 Oxygen Delivery 06/28/24 08:00 06/28/24 08:00 06/28/24 10:00 Temperature Pulse Rate 107 H 108 H Pulse Rate [Pedal (Dorsalis Pedis)] 101 H Respiratory Rate Blood Pressure Pulse Oximetry Oxygen Delivery Intake/Output Intake/Output: Intake & Output 06/25/24 06/26/24 06/27/24 06/28/24 23:59 23:59 23:59 23:59 Intake Total 3150 1942.5 Output Total 2100 2415 Balance 1050 -472.5 Meds/Results Medications: Active Medications Generic Name Dose Route Start Last Admin Trade Name Freq PRN Reason Stop Dose Admin Acetaminophen 650 mg 06/27/24 08:21 Acetaminophen 325 Mg Tablet PO Q4H PRN Mild Pain (1-3) or Fever Chlordiazepoxide HCl 25 mg 06/27/24 07:40 Chlordiazepoxide (*Crx) 25 Mg Capsule PO Q6H PRN Withdrawal Enoxaparin Sodium 40 mg 06/29/24 09:00 Enoxaparin 40 Mg/0.4 Ml Syringe SUB-Q DAILY VANDANA Hydromorphone HCl 0.5 mg 06/27/24 08:21 Hydromorphone Hcl Inj (*Crx) 1 Mg/Ml Syr IV PUSH Q4H PRN Pain Rated 7-10 Lactated Ringer's 1,000 mls @ 150 mls/hr 06/27/24 08:25 06/28/24 09:37 Lr - Lactated Ringers Iv IV CONT 150 mls/hr .Q6H40M VANDANA Administration Piperacillin/Tazobactam/Dextrose 3.375 gm in 50 mls @ 100 mls/hr 06/27/24 18:00 06/28/24 06:27 Zosyn 3.375 Gm/Ns 50 Ml IVPB Infused Q6H VANDANA Infusion Potassium Chloride 40 meq/ 520 mls @ 130 mls/hr 06/28/24 08:00 06/28/24 09:37 Sodium Chloride IVPB 06/28/24 11:59 130 mls/hr ONCE ONE Administration Potassium Chloride 40 meq/ 520 mls @ 130 mls/hr 06/28/24 09:00 Sodium Chloride IVPB 06/28/24 12:59 ONCE ONE Ondansetron HCl 4 mg 06/27/24 08:21 Ondansetron Inj 4 Mg/2 Ml Vial IV PUSH Q4H PRN Nausea Pantoprazole Sodium 40 mg 06/28/24 09:00 06/28/24 09:37 Pantoprazole Sodium Iv 40 Mg Vial IV PUSH 40 mg QAM VANDANA Administration Thiamine HCl 100 mg 06/27/24 09:00 06/28/24 09:38 Thiamine Hcl 200 Mg/2 Ml Vial IV PUSH 100 mg DAILY VANDANA Administration Radiology Results: ITS Impressions Chest/Abdomen/Pelvis CTA 06/27/24 06:17 IMPRESSION: CHEST: 1. No pulmonary embolism. No aortic dissection 2. No acute cardiopulmonary pathology. ABDOMEN/PELVIS: 1. Small bowel obstruction with the transition zone in the terminal ileum area. Clinical correlation advised. 2. No evidence of appendicitis, or diverticulitis. Head CT 06/27/24 06:59 IMPRESSION: No acute intracranial findings. Cervical Spine CT 06/27/24 07:58 IMPRESSION: No acute osseous abnormality cervical spine. Multilevel degenerative disc disease. Labs Labs: Laboratory Results - last 24 hr 06/27/24 06/27/24 06/28/24 16:51 18:21 00:23 WBC RBC Hgb Hct MCV MCH MCHC RDW Plt Count MPV Immature Gran % (Auto) Neut % (Auto) Lymph % (Auto) [place] % (Auto) Eos % (Auto) Baso % (Auto) Lymph # (Auto) [place] # (Auto) Eos # (Auto) Baso # (Auto) Abs Immat Gran (auto) Absolute Neuts (auto) Absolute Nucleated RBC Nucleated RBC % Sodium Potassium Chloride Carbon Dioxide Anion Gap BUN Creatinine Estim Creat Clear Calc Estimated GFR Glucose POC Capillary Glucose 120 H 102 Lactic Acid 1.2 Calcium Magnesium Total Bilirubin AST ALT Alkaline Phosphatase Total Protein Albumin Blood Type Antibody Screen 06/28/24 06/28/24 06/28/24 04:39 05:46 11:41 WBC 7.9 RBC 5.01 Hgb 15.8 Hct 47.6 MCV 95.0 MCH 31.5 MCHC 33.2 RDW 13.5 Plt Count 249 MPV 9.4 Immature Gran % (Auto) 0.4 Neut % (Auto) 63.6 Lymph % (Auto) 15.4 L [place] % (Auto) 19.9 H Eos % (Auto) 0.6 Baso % (Auto) 0.1 L Lymph # (Auto) 1.22 [place] # (Auto) 1.6 H Eos # (Auto) 0.1 Baso # (Auto) 0.0 Abs Immat Gran (auto) 0.03 Absolute Neuts (auto) 5.0 Absolute Nucleated RBC 0.000 Nucleated RBC % 0.0 Sodium 134 L Potassium 3.1 L Chloride 97 L Carbon Dioxide 24 Anion Gap 13 H BUN 41 H Creatinine 1.36 H Estim Creat Clear Calc 46 Estimated GFR 52 L Glucose 101 POC Capillary Glucose 97 109 H Lactic Acid 1.1 Calcium 8.8 Magnesium 2.5 H Total Bilirubin 1.4 H AST 50 ALT 24 Alkaline Phosphatase 41 Total Protein 6.0 L Albumin 3.3 L Blood Type O Positive Antibody Screen Negative
--- NOTE | 2024-06-28 14:10 | PC.NURSE ---
This patient, Anuj Cavazos, was received from IMU on 06/28/24 at 1400. Patient/family oriented to unit policies and routines
[2024-06-28 17:54] LABS: Glucose Point of Care 104 mg/dl (65-105)
[2024-06-29] VITALS (16 sets, daily range): BP systolic 133–155; BP diastolic 78–103; PULSE 78–136; RESP 12–18; TEMP 35.8–37.1; O2SAT 94–100
[2024-06-29 00:38] LABS: Glucose Point of Care 86 mg/dl (65-105)
[2024-06-29] MEDS: LACTATED RINGERS 1,000 ML 150 ML IV CONT (01:00)
[2024-06-29] MEDS: PIPERACILLN/TAZ 3.375GM/NS50ML 3.375 GM/50 ML BAG IVPB ×4 (05:00→20:50)
[2024-06-29 06:13] LABS: Basophils Percent Auto 0.1 % (0.2-1.2); Eosinophils Absolute Auto 0.1 K/mm3 (0-0.3); Hematocrit 45.9 % (42.0-52.0); Hemoglobin 15.3 g/dL (14.0-18.0); Immature Granulocyte Absolute 0.02 K/mm3 (0.00-0.031); Immature Granulocyte Percent A 0.3 % (0-0.5); Lymphocytes Absolute Auto 1.09 K/mm3 (0.9-3.2); Mean Corpuscular HGB Conc 33.3 g/dl (32-36); Mean Corpuscular Hemoglobin 31.9 pg (26-34); Mean Corpuscular Volume 95.6 fl (80-100); Mean Platelet Volume 9.5 fl (7.4-10.4); Monocytes Absolute Auto 1.3 K/mm3 (0.1-0.6); Monocytes Percent Auto 18.9 % (2.6-8.5); Neutrophils Absolute Auto 4.3 K/mm3 (1.3-6.7); Neutrophils Percent Auto 63.7 % (45.5-73.1); Platelet Count Result 236 k/mm3 (150-375); Red Cell Distribution Width 13.4 % (11.5-14.5); White Blood Count 6.8 K/mm3 (4.5-10.0)
[2024-06-29 06:21] LABS: Alanine Aminotransferase 20 U/L (6-50); Albumin Level 3.3 g/dL (3.5-5.1); Alkaline Phosphatase 44 U/L (38-126); Anion Gap 11 mmol/L (4-12); Aspartate Amino Transferase 34 U/L (17-59); Blood Urea Nitrogen 28 mg/dL (9-20); Calcium 8.8 mg/dL (8.4-10.2); Carbon Dioxide 26 mmol/L (22-30); Chloride 104 mmol/L (98-107); Estimated CRCL calculation 51 ml/min; Estimated Glomerular Filt Rate 58; Glucose 87 mg/dL (65-110); Magnesium 2.4 mg/dL (1.6-2.3); Potassium 3.2 mmol/L (3.4-5.0); Sodium 141 mmol/L (137-145)
[2024-06-29 06:22] LABS: Glucose Point of Care 87 mg/dl (65-105)
[2024-06-29] MEDS: KCL 20MEQ/0.9% SOD CHL 1,000 ML 100 ML IV CONT (09:01)
[2024-06-29] MEDS: POTASSIUM CHLORIDE INJ 40 MEQ in SODIUM CHLORIDE 0.9% IV 500 ML 130 MEQ IVPB (09:01)
[2024-06-29] MEDS: THIAMINE HCL 200 MG/2 ML VIAL 100 MG IV PUSH (09:02)
[2024-06-29] MEDS: PANTOPRAZOLE SODIUM IV 40 MG VIAL IV PUSH (09:02)
[2024-06-29] MEDS: ENOXAPARIN 40 MG/0.4 ML SYRINGE SUB-Q (09:03)
--- NOTE | 2024-06-29 11:58 | WPDHPUPDATE1 ---
History and Physical Update Update Date/Time: 06/29/24 11:58 History and Physical has been reviewed, including an updated exam of the patient. There are NO changes in the patient's condition. Risks, benefits, and alternatives have been discussed and questions answered. Patient agrees to proceed with procedure. Pt has high grade distal SBO clinically and on imaging water soluble SBFT. He will need to have exploratory laparotomy, possble bowel resection today. Risks, benefits, indications, and expected outcomes were discussed in detail with the patient and/or family. They understand and I have answered all other questions. They wished to proceed with surgery as outlined above.
[2024-06-29 12:01] LABS: Glucose Point of Care 80 mg/dl (65-105)
--- NOTE | 2024-06-29 12:19 | P.PNIM_ITS ---
Progress Note: A&P Assessment and Plan (1) Chronic alcohol use: Code(s): F10.90 - Alcohol use, unspecified, uncomplicated Status: Acute (2) Non-ST elevation MT (NSTEMI): Code(s): I21.4 - Non-ST elevation (NSTEMI) myocardial infarction Status: Acute (3) Hyponatremia: Code(s): E87.1 - Hypo-osmolality and hyponatremia Status: Acute (4) Small bowel obstruction: Code(s): K56.609 - Unspecified intestinal obstruction, unspecified as to partial versus complete obstruction Status: Acute (5) ORTEGA (acute kidney injury): Code(s): N17.9 - Acute kidney failure, unspecified Status: Acute (6) DJD (degenerative joint disease) of cervical spine: Code(s): M47.812 - Spondylosis without myelopathy or radiculopathy, cervical region Status: Acute (7) Syncope: Code(s): R55 - Syncope and collapse Status: Acute Plan This is a 64-year-old male who presented to the ED with few days history of nausea vomiting and abdominal pain. He also reports not having bowel movement for past few days. Last night he felt dizzy when he got up to go to the bathroom and hence came to the ER for evaluation In the ED he was afebrile however was tachycardic and borderline blood pressure. Laboratory studies revealed WBC of 7.5 hemoglobin of 18.5 platelet of 2 her 69 sodium low at 130 bicarbonate 20 creatinine was 1.98 baseline unknown blood rodriguez gars 218 lactic acid was elevated at 2.5 troponin was elevated 0.369 proBNP 3980. TSH was normal ethyl alcohol level was less than 10 influenza RSV COVID swab was negative Chest abdomen pelvis CTA was performed which showed no PE no aortic dissection. Abdomen pelvis showed small-bowel obstruction with the transition zone in the terminal ileum area. No evidence of appendicitis or diverticulitis. Head CT head no acute intracranial findings Cervical cervical CT with no acute osseous abnormality multilevel degenerative disc disease noted. EKG showed sinus tachycardia with nonspecific ST-T changes. Patient received fluid bolus also received IV Zosyn. Patient admitted in this setting for further treatment. Small bowel obstruction NG tube has been placed continue NG decompression. General surgery has been consulted. Small-bowel follow-through with still high- grade obstruction. Planned exploratory laparotomy today ORTEGA creatinine 1.9. Continue IV hydration and monitor renal function. Creatinine improving Syncope Hyponatremia improving Chronic alcohol use last drink 06/23/2024 Degenerative joint disease of cervical spine Elevated BNP Elevated troponin Lactic acidosis continue to monitor and resolved DVT prophylaxis Lovenox Code status full code Subjective Date/time seen: 06/29/24 12:19 Interval history: No overnight events. Small-bowel follow-through reviewed. No bowel movement. Review of Systems Review of Systems: All systems reviewed & are unremarkable except as noted in HPI and below Exam Narrative: GENERAL: Well-appearing, well-nourished, and in no acute distress. HEAD: Normocephalic, atraumatic. EYES: Non injected, non icteric ENT: Nares clear, no rhinorrhea or epistaxis. NG in place NECK: Supple. CHEST: Speaking in full sentences. No respiratory distress. HEART: Regular rate and rhythm. . ABDOMEN: Soft, mildly distended nontender no organomegaly EXTREMITIES: Normal range of motion. No lower extremity edema. SKIN: Warm, dry, no rash. NEURO: No focal deficits. Alert and oriented x3. PSYCH: Normal mood and affect. Objective Data Vital Signs Vital Signs: Vital Signs - 24 hr 06/28/24 14:00 06/28/24 14:15 06/28/24 16:00 Temperature 96.3 F L Pulse Rate 116 H 117 H Pulse Rate [Pedal (Dorsalis Pedis)] Respiratory Rate 18 Blood Pressure 150/93 H Pulse Oximetry 97 Oxygen Delivery Room Air 06/28/24 20:00 06/28/24 20:00 06/28/24 22:32 Temperature 97.9 F Pulse Rate 117 H 115 H Pulse Rate [Pedal (Dorsalis Pedis)] 117 H Respiratory Rate 18 Blood Pressure 148/96 H Pulse Oximetry 96 Oxygen Delivery 06/29/24 00:00 06/29/24 00:00 06/29/24 04:00 Temperature Pulse Rate 100 Pulse Rate [Pedal (Dorsalis Pedis)] 100 96 Respiratory Rate Blood Pressure Pulse Oximetry Oxygen Delivery 06/29/24 04:00 06/29/24 06:25 06/29/24 07:15 Temperature 98.4 F 97.2 F L Pulse Rate 96 100 136 H Pulse Rate [Pedal (Dorsalis Pedis)] Respiratory Rate 16 18 Blood Pressure 153/98 H 154/96 H Pulse Oximetry 96 98 Oxygen Delivery 06/29/24 08:00 06/29/24 08:00 06/29/24 08:00 Temperature Pulse Rate 136 H 136 H Pulse Rate [Pedal (Dorsalis Pedis)] 96 Respiratory Rate 18 Blood Pressure Pulse Oximetry 98 Oxygen Delivery Room Air Intake/Output Intake/Output: Intake & Output 06/26/24 06/27/24 06/28/24 06/29/24 23:59 23:59 23:59 23:59 Intake Total 3150 3042.5 1050 Output Total 2100 4215 3325 Balance 1050 -1172.5 -2275 Meds/Results Medications: Active Medications Generic Name Dose Route Start Last Admin Trade Name Freq PRN Reason Stop Dose Admin Acetaminophen 650 mg 06/27/24 08:21 Acetaminophen 325 Mg Tablet PO Q4H PRN Mild Pain (1-3) or Fever Chlordiazepoxide HCl 25 mg 06/27/24 07:40 Chlordiazepoxide (*Crx) 25 Mg Capsule PO Q6H PRN Withdrawal Enoxaparin Sodium 40 mg 06/29/24 09:00 06/29/24 09:03 Enoxaparin 40 Mg/0.4 Ml Syringe SUB-Q 40 mg DAILY VANDANA Administration Hydromorphone HCl 0.5 mg 06/27/24 08:21 Hydromorphone Hcl Inj (*Crx) 1 Mg/Ml Syr IV PUSH Q4H PRN Pain Rated 7-10 Piperacillin/Tazobactam/Dextrose 3.375 gm in 50 mls @ 100 mls/hr 06/27/24 18:00 06/29/24 09:36 Zosyn 3.375 Gm/Ns 50 Ml IVPB 100 mls/hr Q6H VANDANA Administration Potassium Chloride/Sodium Chloride 1,000 mls @ 100 mls/hr 06/29/24 08:45 06/29/24 09:01 Kcl 20 Meq/Ns IV CONT 100 mls/hr .Q10H VANDANA Administration Potassium Chloride 40 meq/ 520 mls @ 130 mls/hr 06/29/24 08:45 06/29/24 09:01 Sodium Chloride IVPB 06/29/24 12:44 130 mls/hr ONCE ONE Administration Ondansetron HCl 4 mg 06/27/24 08:21 Ondansetron Inj 4 Mg/2 Ml Vial IV PUSH Q4H PRN Nausea Pantoprazole Sodium 40 mg 06/28/24 09:00 06/29/24 09:02 Pantoprazole Sodium Iv 40 Mg Vial IV PUSH 40 mg QAM VANDANA Administration Thiamine HCl 100 mg 06/27/24 09:00 06/29/24 09:02 Thiamine Hcl 200 Mg/2 Ml Vial IV PUSH 100 mg DAILY VANDANA Administration Radiology Results: ITS Impressions Chest/Abdomen/Pelvis CTA 06/27/24 06:17 IMPRESSION: CHEST: 1. No pulmonary embolism. No aortic dissection 2. No acute cardiopulmonary pathology. ABDOMEN/PELVIS: 1. Small bowel obstruction with the transition zone in the terminal ileum area. Clinical correlation advised. 2. No evidence of appendicitis, or diverticulitis. Head CT 06/27/24 06:59 IMPRESSION: No acute intracranial findings. Cervical Spine CT 06/27/24 07:58 IMPRESSION: No acute osseous abnormality cervical spine. Multilevel degenerative disc disease. Small Bowel X-Ray 06/28/24 23:13 IMPRESSION: High-grade small bowel obstruction, as detailed above. Labs Labs: Laboratory Results - last 24 hr 06/28/24 06/29/24 06/29/24 17:52 00:36 05:29 WBC 6.8 RBC 4.80 Hgb 15.3 Hct 45.9 MCV 95.6 MCH 31.9 MCHC 33.3 RDW 13.4 Plt Count 236 MPV 9.5 Immature Gran % (Auto) 0.3 Neut % (Auto) 63.7 Lymph % (Auto) 16.0 L [place] % (Auto) 18.9 H Eos % (Auto) 1.0 Baso % (Auto) 0.1 L Lymph # (Auto) 1.09 [place] # (Auto) 1.3 H Eos # (Auto) 0.1 Baso # (Auto) 0.0 Abs Immat Gran (auto) 0.02 Absolute Neuts (auto) 4.3 Absolute Nucleated RBC 0.000 Nucleated RBC % 0.0 Sodium 141 Potassium 3.2 L Chloride 104 Carbon Dioxide 26 Anion Gap 11 BUN 28 H D Creatinine 1.24 Estim Creat Clear Calc 51 Estimated GFR 58 L Glucose 87 POC Capillary Glucose 104 86 Calcium 8.8 Magnesium 2.4 H Total Bilirubin 1.0 AST 34 ALT 20 Alkaline Phosphatase 44 Total Protein 7.0 Albumin 3.3 L 06/29/24 06/29/24 06:19 11:50 WBC RBC Hgb Hct MCV MCH MCHC RDW Plt Count MPV Immature Gran % (Auto) Neut % (Auto) Lymph % (Auto) [place] % (Auto) Eos % (Auto) Baso % (Auto) Lymph # (Auto) [place] # (Auto) Eos # (Auto) Baso # (Auto) Abs Immat Gran (auto) Absolute Neuts (auto) Absolute Nucleated RBC Nucleated RBC % Sodium Potassium Chloride Carbon Dioxide Anion Gap BUN Creatinine Estim Creat Clear Calc Estimated GFR Glucose POC Capillary Glucose 87 80 Calcium Magnesium Total Bilirubin AST ALT Alkaline Phosphatase Total Protein Albumin
--- NOTE | 2024-06-29 13:49 | WPDANESEPPF ---
Anes - Initial Pre Proc Eval Procedure: Operation Date: 06/29/24 13:30 Proposed Procedures p Exploratory Laparotomy, Possible Bowel Resection - Jeanmarie Plata MD Date/Time: 06/29/24 13:49 Surgeon: Lilibeth Rodriguez MD Pre Op Diagnosis: NSTEMI, small bowel obstruction; potential for Patient Data Age: 64 Gender: M Height: 1.73 m Weight: 76.9 kg Last Vital Signs Temp 36.3 C L 06/29/24 12:47 Pulse 97 06/29/24 12:47 Resp 16 06/29/24 12:47 BP 148/93 H 06/29/24 12:47 Pulse Ox 97 06/29/24 12:47 O2 Del Method Room Air 06/29/24 08:00 Allergies Allergy/AdvReac Type Severity Reaction Status Date / Time No Known Allergies Allergy Unknown Verified 06/29/24 12:45 Home Medications ?Medication ?Instructions ?Recorded ?Confirmed ?Type No Home Medications 06/27/24 06/27/24 History Laboratory Tests 06/28/24 06/29/24 06/29/24 17:52 00:36 05:29 WBC 6.8 K/mm3 (4.5-10.0) RBC 4.80 M/mm3 (4.6-6.20) Hgb 15.3 g/dL (14.0-18.0) Hct 45.9 % (42.0-52.0) MCV 95.6 fl (80-100) MCH 31.9 pg (26-34) MCHC 33.3 g/dl (32-36) RDW 13.4 % (11.5-14.5) Plt Count 236 k/mm3 (150-375) MPV 9.5 fl (7.4-10.4) Immature Gran % (Auto) 0.3 % (0-0.5) Neut % (Auto) 63.7 % (45.5-73.1) Lymph % (Auto) 16.0 L % (18.3-44.2) [place] % (Auto) 18.9 H % (2.6-8.5) Eos % (Auto) 1.0 % (0-4.4) Baso % (Auto) 0.1 L % (0.2-1.2) Lymph # (Auto) 1.09 K/mm3 (0.9-3.2) [place] # (Auto) 1.3 H K/mm3 (0.1-0.6) Eos # (Auto) 0.1 K/mm3 (0-0.3) Baso # (Auto) 0.0 K/mm3 (0.0-0.1) Abs Immat Gran (auto) 0.02 K/mm3 (0.00-0.031) Absolute Neuts (auto) 4.3 K/mm3 (1.3-6.7) Absolute Nucleated RBC 0.000 K/mm3 (0.0-0.012) Nucleated RBC % 0.0 % (0.0-0.2) Sodium 141 mmol/L (137-145) Potassium 3.2 L mmol/L (3.4-5.0) Chloride 104 mmol/L (98-107) Carbon Dioxide 26 mmol/L (22-30) Anion Gap 11 mmol/L (4-12) BUN 28 H D mg/dL (9-20) Creatinine 1.24 mg/dL (0.7-1.3) Estim Creat Clear Calc 51 ml/min Estimated GFR 58 L (59 - ) Glucose 87 mg/dL (65-110) POC Capillary Glucose 104 mg/dl 86 mg/dl (65-105) (65-105) Calcium 8.8 mg/dL (8.4-10.2) Magnesium 2.4 H mg/dL (1.6-2.3) Total Bilirubin 1.0 mg/dL (0.2-1.3) AST 34 U/L (17-59) ALT 20 U/L (6-50) Alkaline Phosphatase 44 U/L (38-126) Total Protein 7.0 g/dL (6.3-8.2) Albumin 3.3 L g/dL (3.5-5.1) 06/29/24 06/29/24 06:19 11:50 WBC RBC Hgb Hct MCV MCH MCHC RDW Plt Count MPV Immature Gran % (Auto) Neut % (Auto) Lymph % (Auto) [place] % (Auto) Eos % (Auto) Baso % (Auto) Lymph # (Auto) [place] # (Auto) Eos # (Auto) Baso # (Auto) Abs Immat Gran (auto) Absolute Neuts (auto) Absolute Nucleated RBC Nucleated RBC % Sodium Potassium Chloride Carbon Dioxide Anion Gap BUN Creatinine Estim Creat Clear Calc Estimated GFR Glucose POC Capillary Glucose 87 mg/dl 80 mg/dl (65-105) (65-105) Calcium Magnesium Total Bilirubin AST ALT Alkaline Phosphatase Total Protein Albumin Patient hx anesthesia problems: none Family hx anesthesia problems: none Results Review: All pre-operative results and documents have been reviewed as part of the pre-operative evaluation. REPLACED BY [facility] Family History Family History Mother Breast cancer Father Malignant neoplasm of prostate Social History Social History Smoking status: Current every day smoker Tobacco type: smokeless tobacco Smokeless tobacco user: chewing tobacco Alcohol intake: current Drinks per week: 70 Substance use: never Do You Feel Safe in your Home?: Yes Lack of Transportation: No Lack of Food: Never True Current Housing: I Have Housing Concerned About Future Housing: No Difficulty Paying Gas/Electric Bills: Decline to Answer Difficulty Paying for Meds: Decline to Answer Currently Unemployed: Decline to Answer Education: Decline to Answer Difficulty w/ Childcare or Family Care: Decline to Answer Spiritual care concerns: No Anes - Eval Final PreProcedure Day of Procedure 06/29/24 13:49 Patient weight: normal Heart: regular rate and rhythm Lungs: clear to auscultation Airway: Mallampati scale class II Neurological: alert and oriented Last oral intake: >/= 8 hours ASA classification: III Emergent: no Anesthetic plan: proceed Anesthesia type and monitoring: general ETT and standard monitoring Results Review: All pre-operative results and documents have been reviewed as part of the pre-operative evaluation. Informed Consent: The patient's anesthetic plan and its attendant risks and benefits were discussed with the patient/family/POA. Questions were solicited and answers provided to the satisfaction of the patient/family/POA.
[2024-06-29] MEDS: LIDO 1%/EPINEPHRINE 1:100,000 20 ML VIAL 30 ML INFILTRATE (15:10)
[2024-06-29] MEDS: BUPivacaine HCL 0.5% 10 ML AMP 30 ML INFILTRATE (15:11)
[2024-06-29] MEDS: LACTATED RINGERS 1,000 ML 30 ML IV CONT (15:30)
--- NOTE | 2024-06-29 15:39 | P.OP_ITS ---
Procedure Note - Detailed Date of Procedure 06/29/24 Pre-op Diagnosis High-grade small-bowel obstruction Post-op Diagnosis Other (High-grade mid jejunal small bowel obstruction secondary to omental adhesion, jejunal serosal tear x 2) Procedure Performed Exploratory laparotomy and adhesiolysis with repair of serosal tears x2 Surgeon Jeanmarie Plata MD Anesthesia General Indications Patient is a 64-year-old gentleman had a syncopal episode at home was brought to the emergency room. Upon further questioning the patient was noted to have poor p.o. intake for several days. CT scan abdomen pelvis was performed showing a likely distal small bowel obstruction. No free air was seen. No ascites fluid was seen. White blood cell count is normal. Hemodynamically he was stable. Abdominal exam revealed abdominal distension and some minor tenderness but no peritoneal signs. A water-soluble small-bowel follow-through series showed no passage of contrast into the colon at for hours. This is compatible with a high-grade small-bowel obstruction. He is being brought to operating now for exploratory laparotomy. Findings The patient had a single omental adhesion of the right upper quadrant causing a high-grade small-bowel obstruction of the mid jejunum. There was severe dilation of the small bowel proximal to the obstruction causing 2 separate serosal tears in the wall of the small bowel on the anti mesenteric side. One was in the 1 of the tears was in the mid jejunum and the other tear was in the proximal jejunum. The serosal tears were caused by the bowel obstruction and not by manipulation of the bowel by the surgeon. There was no formal full-t hickness small-bowel enterotomy. Description of Procedure After informed consent was obtained patient brought to the operating room was placed supine position and general endotracheal anesthesia was administered. A Eller catheter was placed decompress the bladder. A nasogastric tube was already in place. The abdomen was then prepped and draped usual sterile fashion. A time-out was then performed correctly identifying the patient as well as procedure to be performed. He was already getting scheduled IV antibiotics. I made a midline incision starting about 6cm above the umbilicus extending it about 6cm below the umbilicus. Dissection was carried down through the subcutaneous tissues with electrocautery the fascia was divided just at the umbilical stalk and the abdomen was entered. There was prompt drainage of about 100cc of straw-colored nonpurulent and non feculent appearing fluid. I then opened the midline fascia to mesh length of the skin incision and then proceeded to eviscerate the small bowel. I did find the area of obstruction in the right upper quadrant where a portion of the omentum had envelop the small bowel causin g cessation of the small bowel and constricting the lumen. There was no twisting of small bowel and no evidence of ischemia the small bowel. The obstruction was noted to be in the mid jejunum. As I eviscerated all the small bowel did find 2 areas of serosal tearing due to the severe dilation of the small bowel. This was a result of the obstruction and dilation of the bowel and not due to manipulation of the small bowel by the surgeon. There was no formal full-thickness enterotomy. The omental adhesion causing the obstruction was divided with electrocautery to relieve the obstruction. The area obstruction on the small bowel was manipulated and it did dilate appropriately without any fibrous constriction. The bowel this area was completely viable. All the small bowel was viable. I then performed buttressing and repair of the serosal tears on the small bowel. This done with interrupted 3-0 silk Lembert sutures. I then milked all the small bowel contents from the point of constriction and obstruction proximally all the way up to the ligament Treitz. The small bowel contents were then aspirated through the nasogastric tube. Over 1500cc of fluid was aspirated from the stomach via the NG tube with decompression. I then ran the small bowel once more and found no other areas of serosal tears. A irrigated out the abdomen with copious amounts sterile some warm saline solu tion. Fluid was then aspirated from the abdomen. I then pulled the omentum down over the small bowel after I reduced all into the abdomen making sure it was not twisted. I then closed the abdomen by placement of running looped 1. PDS sutures to approximate the fascial edges. She was started each an incision and then they were tied together just above the umbilicus. I then closed the subcutaneous tissues with interrupted 3-0 Vicryl sutures. The skin edges were then approximated utilizing a running subcuticular 4 Monocryl suture. The incision was then cleaned the skin glue was applied. The patient tolerated the procedure well no complications. All sponges, needles, and instrument counts were correct at the end procedure. EBL was _20__cc. The patient was awakened and taken to recovery in stable and satisfactory condition. Implants None Estimated Blood Loss 20 Urine Output 120 Drains No Packing No Pathology None sent Complications No immediate complications Condition Stable Disposition PACU [facility] Billing Surgery - Charge Forward: Surgery Billing
[2024-06-29] MEDS: IBUPROFEN IV 800 MG/200 ML 800 MG/200 ML BAG 400 MG IVPB (17:12)
[2024-06-29 18:14] LABS: Glucose Point of Care 111 mg/dl (65-105)
[2024-06-29] MEDS: MAG HYDROX/AL HYDROX/SIMETH 30 ML UDC PO (22:11)
[2024-06-30] VITALS (7 sets, daily range): BP systolic 143–186; BP diastolic 75–102; PULSE 76–97; RESP 16–20; TEMP 36.4–37.3; O2SAT 93–98
[2024-06-30 00:09] LABS: Glucose Point of Care 97 mg/dl (65-105)
[2024-06-30] MEDS: IBUPROFEN IV 800 MG/200 ML 800 MG/200 ML BAG 400 MG IVPB ×3 (01:18→16:55)
[2024-06-30] MEDS: KCL 20MEQ/0.9% SOD CHL 1,000 ML 100 ML IV CONT ×2 (02:01→14:58)
[2024-06-30] MEDS: PIPERACILLN/TAZ 3.375GM/NS50ML 3.375 GM/50 ML BAG IVPB ×4 (02:48→20:25)
[2024-06-30] MEDS: MAG HYDROX/AL HYDROX/SIMETH 30 ML UDC PO ×3 (05:53→21:53)
[2024-06-30 06:20] LABS: Basophils Percent Auto 0.4 % (0.2-1.2); Eosinophils Absolute Auto 0.1 K/mm3 (0-0.3); Eosinophils Percent Auto 0.8 % (0-4.4); Hematocrit 42.6 % (42.0-52.0); Hemoglobin 13.6 g/dL (14.0-18.0); Immature Granulocyte Absolute 0.04 K/mm3 (0.00-0.031); Immature Granulocyte Percent A 0.5 % (0-0.5); Lymphocytes Absolute Auto 0.85 K/mm3 (0.9-3.2); Lymphocytes Percent Auto 11.5 % (18.3-44.2); Mean Corpuscular HGB Conc 31.9 g/dl (32-36); Mean Corpuscular Hemoglobin 31.5 pg (26-34); Mean Corpuscular Volume 98.6 fl (80-100); Mean Platelet Volume 9.5 fl (7.4-10.4); Monocytes Absolute Auto 1.4 K/mm3 (0.1-0.6); Monocytes Percent Auto 18.9 % (2.6-8.5); Neutrophils Percent Auto 67.9 % (45.5-73.1); Platelet Count Result 225 k/mm3 (150-375); Red Blood Count 4.32 M/mm3 (4.6-6.20); Red Cell Distribution Width 13.5 % (11.5-14.5); White Blood Count 7.4 K/mm3 (4.5-10.0)
[2024-06-30 06:33] LABS: Alanine Aminotransferase 16 U/L (6-50); Albumin Level 2.7 g/dL (3.5-5.1); Alkaline Phosphatase 37 U/L (38-126); Anion Gap 8 mmol/L (4-12); Aspartate Amino Transferase 24 U/L (17-59); Bilirubin,Total 0.7 mg/dL (0.2-1.3); Blood Urea Nitrogen 19 mg/dL (9-20); Carbon Dioxide 25 mmol/L (22-30); Chloride 110 mmol/L (98-107); Estimated CRCL calculation 56 ml/min; Estimated Glomerular Filt Rate > 60; Glucose 92 mg/dL (65-110); Magnesium 2.2 mg/dL (1.6-2.3); Potassium 4.1 mmol/L (3.4-5.0); Sodium 143 mmol/L (137-145)
[2024-06-30 07:57] LABS: Glucose Point of Care 94 mg/dl (65-105)
[2024-06-30] MEDS: ENOXAPARIN 40 MG/0.4 ML SYRINGE SUB-Q (08:44)
[2024-06-30] MEDS: THIAMINE HCL 200 MG/2 ML VIAL 100 MG IV PUSH (08:46)
[2024-06-30] MEDS: PANTOPRAZOLE SODIUM IV 40 MG VIAL IV PUSH (08:46)
[2024-06-30 09:00] LABS: Glucose Point of Care 89 mg/dl (65-105)
[2024-06-30] MEDS: CALCIUM GLUC 1,000 MG/NS 50 ML 1,000 MG/50 ML BAG 100 MG IVPB (10:41)
--- NOTE | 2024-06-30 11:29 | P.PNGS_ITS ---
Progress Note: A&P Assessment and Plan (1) Small bowel obstruction: Code(s): K56.609 - Unspecified intestinal obstruction, unspecified as to partial versus complete obstruction Status: Acute Assessment and Plan: S/p exploratory laparotomy with adhesiolysis yesterday. He had a single omental adhesion in the right upper quadrant causing the obstruction. His bowel was severely dilated and a postoperative ileus would not be unexpected. Will await return of bowel function. Continue NG tube decompression, bowel rest, and IV fluids for now. Will try increasing his activity and get up to the chair and ambulate today. (2) Chronic alcohol use: Code(s): F10.90 - Alcohol use, unspecified, uncomplicated Status: Acute Assessment and Plan: Management per Hospitalist. Currently on withdrawal protocol and no signs of acute withdrawal. Plan I have discussed the patient's case and plan of care with Dr. Plata. Subjective Subjective Date/Time Seen: 06/30/24 11:29 Post Op day: 1 (Exploratory laparotomy and adhesiolysis with repair of serosal tears x2) Patient reports: flatus, no bowel movement and afebrile Interval history: Patient reports minimal incisional soreness at the midline incision, but no significant abdominal pain. His incisional pain has been controlled with IV ibuprofen. He had 650 cc out of his NG tube overnight shift for the past 12 hours. He reports he is passing little flatus. No BM yet. Exam Const: General: comfortable and no acute distress Orientation/conscious ness: patient oriented x3 GI: Auscultation: absent bowel sounds Other: Abdomen mildly distended but soft. Midline incision with glue intact and minimal bruising of the incision, but no drainage or erythema. Expected tenderness near the incision, but otherwise nontender. Extrem: General: no calf tenderness and no edema Objective Data Vital Signs Vital Signs: Vital Signs - 24 hr 06/29/24 12:47 06/29/24 15:30 06/29/24 15:45 Temperature 97.4 F L 98.7 F Pulse Rate 97 80 78 Pulse Rate [Pedal (Dorsalis Pedis)] Respiratory Rate 16 12 12 Blood Pressure 148/93 H 155/88 H 144/80 H Pulse Oximetry 97 100 99 Oxygen Delivery Simple Face Mask Simple Face Mask Oxygen Flow Rate 6 6 06/29/24 15:50 06/29/24 16:00 06/29/24 16:00 Temperature Pulse Rate 85 80 Pulse Rate [Pedal (Dorsalis Pedis)] Respiratory Rate 14 Blood Pressure 135/82 Pulse Oximetry 96 Oxygen Delivery Room Air Room Air Oxygen Flow Rate 06/29/24 16:15 06/29/24 16:30 06/29/24 16:50 Temperature 98.8 F 96.8 F L Pulse Rate 86 89 90 Pulse Rate [Pedal (Dorsalis Pedis)] Respiratory Rate 12 12 14 Blood Pressure 138/81 142/81 H 155/86 H Pulse Oximetry 96 94 95 Oxygen Delivery Room Air Room Air Oxygen Flow Rate 06/29/24 17:05 06/29/24 17:35 06/29/24 18:35 Temperature 96.5 F L 96.5 F L 96.5 F L Pulse Rate 84 83 78 Pulse Rate [Pedal (Dorsalis Pedis)] Respiratory Rate 14 14 14 Blood Pressure 153/83 H 145/103 H 134/82 Pulse Oximetry 95 96 98 Oxygen Delivery Oxygen Flow Rate 06/29/24 20:00 06/29/24 20:00 06/29/24 20:00 Temperature 98.4 F Pulse Rate 82 Pulse Rate [Pedal (Dorsalis Pedis)] 96 Respiratory Rate 18 Blood Pressure 133/78 Pulse Oximetry 97 Oxygen Delivery Room Air Oxygen Flow Rate 06/29/24 20:00 06/30/24 00:00 06/30/24 00:00 Temperature 97.5 F L Pulse Rate 79 76 77 Pulse Rate [Pedal (Dorsalis Pedis)] Respiratory Rate 16 Blood Pressure 143/80 H Pulse Oximetry 98 Oxygen Delivery Oxygen Flow Rate 06/30/24 04:00 06/30/24 04:00 06/30/24 08:00 Temperature 98.2 F 98 F Pulse Rate 76 86 85 Pulse Rate [Pedal (Dorsalis Pedis)] Respiratory Rate 18 20 Blood Pressure 143/75 H 152/92 H Pulse Oximetry 97 97 Oxygen Delivery Oxygen Flow Rate Intake/Output Intake/Output: Intake & Output 06/27/24 06/28/24 06/29/24 06/30/24 23:59 23:59 23:59 23:59 Intake Total 3150 3042.5 1600 1300 Output Total 2100 4215 3865 1000 Balance 1050 -1172.5 -2265 300 Meds/Results Medications: Active Medications Generic Name Dose Route Start Last Admin Trade Name Freq PRN Reason Stop Dose Admin Acetaminophen 650 mg 06/27/24 08:21 Acetaminophen 325 Mg Tablet PO Q4H PRN Mild Pain (1-3) or Fever Al Hydrox/Mg Hydrox/Simethicone 30 ml 06/29/24 16:38 06/30/24 05:53 Mag Hydrox/Al Hydrox/Simeth 30 Ml Udc PO 30 ml Q8HR VANDANA Administration Chlordiazepoxide HCl 25 mg 06/27/24 07:40 Chlordiazepoxide (*Crx) 25 Mg Capsule PO Q6H PRN Withdrawal Enoxaparin Sodium 40 mg 06/29/24 09:00 06/30/24 08:44 Enoxaparin 40 Mg/0.4 Ml Syringe SUB-Q 40 mg DAILY VANDANA Administration Hydromorphone HCl 1 mg 06/29/24 15:34 Hydromorphone Hcl Inj (*Crx) 1 Mg/Ml Syr IV PUSH Q3H PRN Pain Rated 7-10 Piperacillin/Tazobactam/Dextrose 3.375 gm in 50 mls @ 100 mls/hr 06/27/24 18:00 06/30/24 10:37 Zosyn 3.375 Gm/Ns 50 Ml IVPB Infused Q6H VANDANA Infusion Potassium Chloride/Sodium Chloride 1,000 mls @ 130 mls/hr 06/29/24 08:45 06/30/24 02:01 Kcl 20 Meq/Ns IV CONT 100 mls/hr .Q7H42M VANDANA Administration Ibuprofen 800 mg in 200 mls @ 400 mls/hr 06/29/24 17:00 06/30/24 08:41 Caldolor 800 Mg/200 Ml IVPB 400 mls/hr Q8H VANDANA Administration Lidocaine 1 patch 06/30/24 09:00 06/30/24 08:46 Lidocaine 5% Patch TRANSDERM Not Given DAILY VANDANA Miscellaneous Information 1 each 06/29/24 00:[address] Of Application? XX 07/29/24 00:00 CLARIFY VANDANA Ondansetron HCl 4 mg 06/27/24 08:21 Ondansetron Inj 4 Mg/2 Ml Vial IV PUSH Q4H PRN Nausea Pantoprazole Sodium 40 mg 06/28/24 09:00 06/30/24 08:46 Pantoprazole Sodium Iv 40 Mg Vial IV PUSH 40 mg QAM VANDANA Administration Thiamine HCl 100 mg 06/27/24 09:00 06/30/24 08:46 Thiamine Hcl 200 Mg/2 Ml Vial IV PUSH 100 mg DAILY VANDANA Administration Radiology Results: ITS Impressions Chest/Abdomen/Pelvis CTA 06/27/24 06:17 IMPRESSION: CHEST: 1. No pulmonary embolism. No aortic dissection 2. No acute cardiopulmonary pathology. ABDOMEN/PELVIS: 1. Small bowel obstruction with the transition zone in the terminal ileum area. Clinical correlation advised. 2. No evidence of appendicitis, or diverticulitis. Head CT 06/27/24 06:59 IMPRESSION: No acute intracranial findings. Cervical Spine CT 06/27/24 07:58 IMPRESSION: No acute osseous abnormality cervical spine. Multilevel degenerative disc disease. Small Bowel X-Ray 06/28/24 23:13 IMPRESSION: High-grade small bowel obstruction, as detailed above. Labs Labs: Laboratory Results - last 24 hr 06/29/24 06/29/24 06/29/24 11:50 18:01 23:54 WBC RBC Hgb Hct MCV MCH MCHC RDW Plt Count MPV Immature Gran % (Auto) Neut % (Auto) Lymph % (Auto) [place] % (Auto) Eos % (Auto) Baso % (Auto) Lymph # (Auto) [place] # (Auto) Eos # (Auto) Baso # (Auto) Abs Immat Gran (auto) Absolute Neuts (auto) Absolute Nucleated RBC Nucleated RBC % Sodium Potassium Chloride Carbon Dioxide Anion Gap BUN Creatinine Estim Creat Clear Calc Estimated GFR Glucose POC Capillary Glucose 80 111 H 97 Calcium Magnesium Total Bilirubin AST ALT Alkaline Phosphatase Total Protein Albumin 06/30/24 06/30/24 06/30/24 05:13 05:41 07:52 WBC 7.4 RBC 4.32 L Hgb 13.6 L Hct 42.6 MCV 98.6 MCH 31.5 MCHC 31.9 L RDW 13.5 Plt Count 225 MPV 9.5 Immature Gran % (Auto) 0.5 Neut % (Auto) 67.9 Lymph % (Auto) 11.5 L [place] % (Auto) 18.9 H Eos % (Auto) 0.8 Baso % (Auto) 0.4 Lymph # (Auto) 0.85 L [place] # (Auto) 1.4 H Eos # (Auto) 0.1 Baso # (Auto) 0.0 Abs Immat Gran (auto) 0.04 H Absolute Neuts (auto) 5.0 Absolute Nucleated RBC 0.000 Nucleated RBC % 0.0 Sodium 143 Potassium 4.1 Chloride 110 H Carbon Dioxide 25 Anion Gap 8 BUN 19 Creatinine 1.11 Estim Creat Clear Calc 56 Estimated GFR > 60 Glucose 92 POC Capillary Glucose 89 94 Calcium 8.0 L Magnesium 2.2 Total Bilirubin 0.7 AST 24 ALT 16 Alkaline Phosphatase 37 L Total Protein 6.0 L Albumin 2.7 L
[2024-06-30 12:19] LABS: Glucose Point of Care 82 mg/dl (65-105)
--- NOTE | 2024-06-30 13:36 | P.PNIM_ITS ---
Progress Note: A&P Assessment and Plan (1) Small bowel obstruction: Code(s): K56.609 - Unspecified intestinal obstruction, unspecified as to partial versus complete obstruction Status: Acute Assessment and Plan: Patient admitted after complaints of ABD pain with N/V. CT chest abdomen pelvis CTA was performed which showed no PE no aortic dissection. Abdomen pelvis showed small-bowel obstruction with the transition zone in the terminal ileum area. No evidence of appendicitis or diverticulitis. General surgery was consulted and patient was taken for exploratory laparotomy 06/29/2024 for repair serosal tears x2. * Postop day 1 * NPO with Ice chips * NG tube to suction * pain control * ambulate as tolerated * Antiemetics * IV fluids * Will advance diet per surgery once bowel function has returned * Incentive spirometer (2) Chronic alcohol use: Code(s): F10.90 - Alcohol use, unspecified, uncomplicated Status: Acute Assessment and Plan: Does not appear in withdrawal at this time will continue to monitor * Last drink 06/23 * Thiamine, folic acid, and multi-vitamin * PPI daily * librium PRN * CIWA daily * Monitor and replenish electrolytes as needed (3) ORTEGA (acute kidney injury): Code(s): N17.9 - Acute kidney failure, unspecified Status: Resolved Assessment and Plan: * Acute kidney injury CR 1.98 POA since resolved with IV fluids (4) Hyponatremia: Code(s): E87.1 - Hypo-osmolality and hyponatremia Status: Resolved Assessment and Plan: * Resolved likely secondary to dehydration and ETOH abuse patient was initially 130 POA resolved with IV fluids Plan Code status: Full code per patient DVT prophylaxis: Lovenox Stress ulcer prophylaxis: Protonix 40 daily PT/OT notes: Ambulatory Disposition: Patient continues admission to the medical unit for further treatment small-bowel obstruction postop day 1 so with NG tube for decompression was slowly advanced diet as tolerated once bowel function has returned patient can discharge back to home. Time Spent With Patient Time with patient: 15 - 25 minutes Subjective Date/time seen: 06/30/24 13:36 Interval history: This is a 64-year-old male who presented to the ED with few days history of nausea vomiting and abdominal pain. He also reports not having bowel movement for past few days. Was found to has small-bowel obstruction underwent exploratory laparotomy in it colitis with repair of serosal tears 06/30/2024. 06/30/2024: Patient reports mild mid ABD pain at incision site. Tolerating NG tube, reports passing gas no BM. Denies CP, SOB, Fever or chills. Review of Systems Review of Systems: All systems reviewed & are unremarkable except as noted in HPI and below Exam Const: General: comfortable and no acute distress HENMT: Mouth: Yes moist mucous membranes Eyes: General: appearance normal, both eyes and all related structures Pupils: Equal, round and reactive pupils present Neck: Neck: supple and no JVD Resp: Effort & Inspection: normal respiratory effort Auscultation: clear to auscultation bilaterally Cardio: Rate: regular rate Rhythm: regular rhythm GI: GI Palp: Yes Soft to palpation and Yes Tenderness to palpation present (GI) (Midline incision) Auscultation: abnormal bowel sounds (hypoactive) Skin: General skin exam: normal color Neuro: General: gait normal Speech: normal speech Extrem: General: normal to inspection Psych: Mental Status: mental status grossly normal Affect: normal affect Objective Data Vital Signs Vital Signs: Vital Signs - 24 hr 06/29/24 15:30 06/29/24 15:45 06/29/24 15:50 Temperature 98.7 F Pulse Rate 80 78 Pulse Rate [Pedal (Dorsalis Pedis)] Respiratory Rate 12 12 Blood Pressure 155/88 H 144/80 H Pulse Oximetry 100 99 Oxygen Delivery Simple Face Mask Simple Face Mask Room Air Oxygen Flow Rate 6 6 06/29/24 16:00 06/29/24 16:00 06/29/24 16:15 Temperature 98.8 F Pulse Rate 85 80 86 Pulse Rate [Pedal (Dorsalis Pedis)] Respiratory Rate 14 12 Blood Pressure 135/82 138/81 Pulse Oximetry 96 96 Oxygen Delivery Room Air Room Air Oxygen Flow Rate 06/29/24 16:30 06/29/24 16:50 06/29/24 17:05 Temperature 96.8 F L 96.5 F L Pulse Rate 89 90 84 Pulse Rate [Pedal (Dorsalis Pedis)] Respiratory Rate 12 14 14 Blood Pressure 142/81 H 155/86 H 153/83 H Pulse Oximetry 94 95 95 Oxygen Delivery Room Air Oxygen Flow Rate 06/29/24 17:35 06/29/24 18:35 06/29/24 20:00 Temperature 96.5 F L 96.5 F L 98.4 F Pulse Rate 83 78 82 Pulse Rate [Pedal (Dorsalis Pedis)] Respiratory Rate 14 14 18 Blood Pressure 145/103 H 134/82 133/78 Pulse Oximetry 96 98 97 Oxygen Delivery Oxygen Flow Rate 06/29/24 20:00 06/29/24 20:00 06/29/24 20:00 Temperature Pulse Rate 79 Pulse Rate [Pedal (Dorsalis Pedis)] 96 Respiratory Rate Blood Pressure Pulse Oximetry Oxygen Delivery Room Air Oxygen Flow Rate 06/30/24 00:00 06/30/24 00:00 06/30/24 04:00 Temperature 97.5 F L Pulse Rate 76 77 76 Pulse Rate [Pedal (Dorsalis Pedis)] Respiratory Rate 16 Blood Pressure 143/80 H Pulse Oximetry 98 Oxygen Delivery Oxygen Flow Rate 06/30/24 04:00 06/30/24 08:00 06/30/24 08:00 Temperature 98.2 F 98 F Pulse Rate 86 85 85 Pulse Rate [Pedal (Dorsalis Pedis)] Respiratory Rate 18 20 Blood Pressure 143/75 H 152/92 H Pulse Oximetry 97 97 Oxygen Delivery Oxygen Flow Rate 06/30/24 12:00 06/30/24 12:00 Temperature 98.1 F Pulse Rate 85 90 Pulse Rate [Pedal (Dorsalis Pedis)] Respiratory Rate 18 Blood Pressure 162/96 H Pulse Oximetry 98 Oxygen Delivery Oxygen Flow Rate Intake/Output Intake/Output: Intake & Output 06/27/24 06/28/24 06/29/24 06/30/24 23:59 23:59 23:59 23:59 Intake Total 3150 3042.5 1600 1500 Output Total 2100 4215 3865 1000 Balance 1050 -1172.5 -2265 500 Meds/Results Medications: Active Medications Generic Name Dose Route Start Last Admin Trade Name Freq PRN Reason Stop Dose Admin Acetaminophen 650 mg 06/27/24 08:21 Acetaminophen 325 Mg Tablet PO Q4H PRN Mild Pain (1-3) or Fever Al Hydrox/Mg Hydrox/Simethicone 30 ml 06/29/24 16:38 06/30/24 13:15 Mag Hydrox/Al Hydrox/Simeth 30 Ml Udc PO 30 ml Q8HR VANDANA Administration Chlordiazepoxide HCl 25 mg 06/27/24 07:40 Chlordiazepoxide (*Crx) 25 Mg Capsule PO Q6H PRN Withdrawal Enoxaparin Sodium 40 mg 06/29/24 09:00 06/30/24 08:44 Enoxaparin 40 Mg/0.4 Ml Syringe SUB-Q 40 mg DAILY VANDANA Administration Hydromorphone HCl 1 mg 06/29/24 15:34 Hydromorphone Hcl Inj (*Crx) 1 Mg/Ml Syr IV PUSH Q3H PRN Pain Rated 7-10 Piperacillin/Tazobactam/Dextrose 3.375 gm in 50 mls @ 100 mls/hr 06/27/24 18:00 06/30/24 10:37 Zosyn 3.375 Gm/Ns 50 Ml IVPB Infused Q6H VANDANA Infusion Potassium Chloride/Sodium Chloride 1,000 mls @ 130 mls/hr 06/29/24 08:45 06/30/24 02:01 Kcl 20 Meq/Ns IV CONT 100 mls/hr .Q7H42M VANDANA Administration Ibuprofen 800 mg in 200 mls @ 400 mls/hr 06/29/24 17:00 06/30/24 09:11 Caldolor 800 Mg/200 Ml IVPB Infused Q8H VANDANA Infusion Lidocaine 1 patch 06/30/24 09:00 06/30/24 08:46 Lidocaine 5% Patch TRANSDERM Not Given DAILY VANDANA Miscellaneous Information 1 each 06/29/24 00:[address] Of Application? XX 07/29/24 00:00 CLARIFY VANDANA Ondansetron HCl 4 mg 06/27/24 08:21 Ondansetron Inj 4 Mg/2 Ml Vial IV PUSH Q4H PRN Nausea Pantoprazole Sodium 40 mg 06/28/24 09:00 06/30/24 08:46 Pantoprazole Sodium Iv 40 Mg Vial IV PUSH 40 mg QAM VANDANA Administration Thiamine HCl 100 mg 06/27/24 09:00 06/30/24 08:46 Thiamine Hcl 200 Mg/2 Ml Vial IV PUSH 100 mg DAILY VANDANA Administration Radiology Results: ITS Impressions Chest/Abdomen/Pelvis CTA 06/27/24 06:17 IMPRESSION: CHEST: 1. No pulmonary embolism. No aortic dissection 2. No acute cardiopulmonary pathology. ABDOMEN/PELVIS: 1. Small bowel obstruction with the transition zone in the terminal ileum area. Clinical correlation advised. 2. No evidence of appendicitis, or diverticulitis. Head CT 06/27/24 06:59 IMPRESSION: No acute intracranial findings. Cervical Spine CT 06/27/24 07:58 IMPRESSION: No acute osseous abnormality cervical spine. Multilevel degenerative disc disease. Small Bowel X-Ray 06/28/24 23:13 IMPRESSION: High-grade small bowel obstruction, as detailed above. Labs Labs: Laboratory Results - last 24 hr 06/29/24 06/29/24 06/30/24 18:01 23:54 05:13 WBC RBC Hgb Hct MCV MCH MCHC RDW Plt Count MPV Immature Gran % (Auto) Neut % (Auto) Lymph % (Auto) [place] % (Auto) Eos % (Auto) Baso % (Auto) Lymph # (Auto) [place] # (Auto) Eos # (Auto) Baso # (Auto) Abs Immat Gran (auto) Absolute Neuts (auto) Absolute Nucleated RBC Nucleated RBC % Sodium Potassium Chloride Carbon Dioxide Anion Gap BUN Creatinine Estim Creat Clear Calc Estimated GFR Glucose POC Capillary Glucose 111 H 97 89 Calcium Magnesium Total Bilirubin AST ALT Alkaline Phosphatase Total Protein Albumin 06/30/24 06/30/24 06/30/24 05:41 07:52 12:10 WBC 7.4 RBC 4.32 L Hgb 13.6 L Hct 42.6 MCV 98.6 MCH 31.5 MCHC 31.9 L RDW 13.5 Plt Count 225 MPV 9.5 Immature Gran % (Auto) 0.5 Neut % (Auto) 67.9 Lymph % (Auto) 11.5 L [place] % (Auto) 18.9 H Eos % (Auto) 0.8 Baso % (Auto) 0.4 Lymph # (Auto) 0.85 L [place] # (Auto) 1.4 H Eos # (Auto) 0.1 Baso # (Auto) 0.0 Abs Immat Gran (auto) 0.04 H Absolute Neuts (auto) 5.0 Absolute Nucleated RBC 0.000 Nucleated RBC % 0.0 Sodium 143 Potassium 4.1 Chloride 110 H Carbon Dioxide 25 Anion Gap 8 BUN 19 Creatinine 1.11 Estim Creat Clear Calc 56 Estimated GFR > 60 Glucose 92 POC Capillary Glucose 94 82 Calcium 8.0 L Magnesium 2.2 Total Bilirubin 0.7 AST 24 ALT 16 Alkaline Phosphatase 37 L Total Protein 6.0 L Albumin 2.7 L Quality VTE Prophylaxis VTE prophylaxis: pharmacologic ordered -Patient's previous records reviewed on admission -ER notes reviewed in detail on admission -discussed all findings and current treatment plan with patient/Family/POA -Consultations reviewed for recommendations -Patient's disposition for safe discharge discussed with high risk case manager Dictation performed by [employer] direct speech recognition software, therefore track liner operator variants and typographical errors may occur. Hospitalist MIPS Advance Care Plan I have confirmed that the patient's Advanced Care Plan is present, code status is documented, or surrogate decision maker is listed in patient medical record.: Yes Medication Reconciliation I have utilized all available resources to obtain, update and review the patients current medications (includes all prescriptions, OTC, herbals, cannabis, and nutritional supplements).: Yes The patient is not eligible for med reconciliation; the patient is in a emergent medical situation where delaying treatment would jeopardize the patients health.: No
[2024-06-30 18:17] LABS: Glucose Point of Care 76 mg/dl (65-105)
[2024-06-30 23:52] LABS: Glucose Point of Care 71 mg/dl (65-105)
[2024-07-01] VITALS (8 sets, daily range): BP systolic 140–180; BP diastolic 76–99; PULSE 88–114; RESP 13–20; TEMP 36.6–37.2; O2SAT 94–97
[2024-07-01] MEDS: IBUPROFEN IV 800 MG/200 ML 800 MG/200 ML BAG 400 MG IVPB ×3 (00:44→16:03)
[2024-07-01] MEDS: HYDROmorphone HCL INJ (*CRX) 1 MG/ML SYR IV PUSH (00:45)
[2024-07-01] MEDS: KCL 20MEQ/0.9% SOD CHL 1,000 ML 130 ML IV CONT (01:39)
[2024-07-01 02:07] LABS: Glucose Point of Care 74 mg/dl (65-105)
[2024-07-01] MEDS: PIPERACILLN/TAZ 3.375GM/NS50ML 3.375 GM/50 ML BAG IVPB ×4 (03:10→20:34)
--- NOTE | 2024-07-01 05:50 | PC.NURSE ---
Entered room to assess Pt. and noted NG tube laying in Pt's bed. Pt. sleeping at this time. Charge nurse informed and when lab entered room a few minutes later, we informed Pt. what happened. Charge nurse assisted in attempting to place NG tube. Please see notes from Charge Nurse, Johanne Escobedo RN.
[2024-07-01 05:56] LABS: Glucose Point of Care 68 mg/dl (65-105)
[2024-07-01] MEDS: ONDANSETRON INJ 4 MG/2 ML VIAL IV PUSH (06:03)
[2024-07-01 06:21] LABS: Hematocrit 46.7 % (42.0-52.0); Hemoglobin 14.4 g/dL (14.0-18.0); Mean Corpuscular HGB Conc 30.8 g/dl (32-36); Mean Corpuscular Hemoglobin 31.4 pg (26-34); Mean Corpuscular Volume 101.7 fl (80-100); Mean Platelet Volume 9.6 fl (7.4-10.4); Platelet Count Result 248 k/mm3 (150-375); Red Blood Count 4.59 M/mm3 (4.6-6.20); Red Cell Distribution Width 13.4 % (11.5-14.5); White Blood Count 8.1 K/mm3 (4.5-10.0)
[2024-07-01] MEDS: DEXTROSE 50% 25 GM/50 ML SYRINGE IV PUSH (06:25)
[2024-07-01 06:41] LABS: Alanine Aminotransferase 20 U/L (6-50); Albumin Level 2.9 g/dL (3.5-5.1); Alkaline Phosphatase 42 U/L (38-126); Anion Gap 12 mmol/L (4-12); Aspartate Amino Transferase 29 U/L (17-59); Bilirubin,Total 0.6 mg/dL (0.2-1.3); Blood Urea Nitrogen 14 mg/dL (9-20); Calcium 8.4 mg/dL (8.4-10.2); Carbon Dioxide 23 mmol/L (22-30); Chloride 114 mmol/L (98-107); Estimated CRCL calculation 55 ml/min; Estimated Glomerular Filt Rate > 60; Glucose 70 mg/dL (65-110); Potassium 3.9 mmol/L (3.4-5.0); Sodium 149 mmol/L (137-145)
--- NOTE | 2024-07-01 06:43 | PC.NURSE ---
PT PULLED OUT NG TUBE. REINSERTED AND KUB ORDERED NG NOT IN PLACE. ADVANCED NG AGAIN KUB REPEATED AND NG STILL NOT IN PLACE. DR. SHAFFER NOTIFIED ORDERED TO LEAVE NG OUT FOR TIME BEING.
[2024-07-01] MEDS: THIAMINE HCL 200 MG/2 ML VIAL 100 MG IV PUSH (09:14)
[2024-07-01] MEDS: PANTOPRAZOLE SODIUM IV 40 MG VIAL IV PUSH (09:14)
[2024-07-01] MEDS: ENOXAPARIN 40 MG/0.4 ML SYRINGE SUB-Q (09:15)
[2024-07-01] MEDS: KCL 20 MEQ/D5W 1,000 ML 1,000 ML 100 ML IV CONT (09:22)
[2024-07-01] MEDS: LIDOCAINE 5% PATCH 1 PATCH TRANSDERM (09:38)
--- NOTE | 2024-07-01 09:43 | P.PNIM_ITS ---
Progress Note: A&P Assessment and Plan (1) Small bowel obstruction: Code(s): K56.609 - Unspecified intestinal obstruction, unspecified as to partial versus complete obstruction Status: Acute Assessment and Plan: Patient admitted after complaints of ABD pain with N/V. CT chest abdomen pelvis CTA was performed which showed no PE no aortic dissection. Abdomen pelvis showed small-bowel obstruction with the transition zone in the terminal ileum area. No evidence of appendicitis or diverticulitis. General surgery was consulted and patient was taken for exploratory laparotomy 06/29/2024 for repair serosal tears x2. Patient post-op day 2 continue NPO and NG tube, IV fluids switched to Dextrose 5/water NA 149 today and BS 68. Patient had pulled out his NG tube was replaced under fluoroscopy, mild distention noted today having flatulence but no BM. * NPO with Ice chips * NG tube to suction continued for decompression * pain control * ambulate as tolerated * Antiemetics * Will advance diet per surgery once bowel function has returned * Incentive spirometer (2) Chronic alcohol use: Code(s): F10.90 - Alcohol use, unspecified, uncomplicated Status: Acute Assessment and Plan: Does not appear in withdrawal at this time will continue to monitor * Last drink / * Thiamine, folic acid, and multi-vitamin * PPI daily * librium PRN * CIWA daily * Monitor and replenish electrolytes as needed (3) ORTEGA (acute kidney injury): Code(s): N17.9 - Acute kidney failure, unspecified Status: Resolved Assessment and Plan: * Acute kidney injury CR 1.98 POA since resolved with IV fluids (4) Hypernatremia: Code(s): E87.0 - Hyperosmolality and hypernatremia Status: Acute Assessment and Plan: * Patient now with hypernatremia at 149 discussed with surgery we will switch his IV fluids to dextrose 5 and water follow-up BMP later on today (5) Hyponatremia: Code(s): E87.1 - Hypo-osmolality and hyponatremia Status: Resolved Assessment and Plan: * Resolved likely secondary to dehydration and ETOH abuse patient was initially 130 POA resolved with IV fluids Plan Code status: Full code per patient DVT prophylaxis: Lovenox Stress ulcer prophylaxis: Protonix 40 daily PT/OT notes: Ambulatory Disposition: Patient continues admission to the medical unit for further treatment small-bowel obstruction postop day 2 with NG tube for decompression will slowly advanced diet as tolerated once bowel function has returned. Patient plans to discharge back to home when medically stable. Remains NPO at this time Time Spent With Patient Time with patient: 15 - 25 minutes Subjective Date/time seen: 07/01/24 09:43 Interval history: This is a 64-year-old male who presented to the ED with few days history of nausea vomiting and abdominal pain. He also reports not having bowel movement for past few days. Was found to has small-bowel obstruction underwent exploratory laparotomy in it colitis with repair of serosal tears 06/30/2024. 07/01/2024: Patient with mild pain but well controlled, NG tube had been pulled new one placed patient with mild distention needs further decompression. Patient denied any CP, SOB, fever, Chills. Reports passing gas no BM. Review of Systems Review of Systems: All systems reviewed & are unremarkable except as noted in HPI and below Exam Const: General: comfortable and no acute distress HENMT: Mouth: Yes moist mucous membranes Eyes: General: appearance normal, both eyes and all related structures Pupils: Equal, round and reactive pupils present Neck: Neck: supple and no JVD Resp: Effort & Inspection: normal respiratory effort Auscultation: clear to auscultation bilaterally Cardio: Rate: regular rate Rhythm: regular rhythm GI: GI Palp: Yes Soft to palpation and Yes Tenderness to palpation present (GI) Auscultation: abnormal bowel sounds (hypoactive) Skin: General skin exam: normal color Neuro: General: gait normal Cranial nerves: Yes Equal, round and reactive pupils present Speech: normal speech Extrem: General: normal to inspection Psych: Mental Status: mental status grossly normal Affect: normal affect Objective Data Vital Signs Vital Signs: Vital Signs - 24 hr 06/30/24 12:00 06/30/24 12:00 06/30/24 16:00 Temperature 98.1 F Pulse Rate 85 90 91 Respiratory Rate 18 Blood Pressure 162/96 H Pulse Oximetry 98 Oxygen Delivery 06/30/24 20:00 06/30/24 20:00 06/30/24 20:00 Temperature 98.8 F Pulse Rate 97 84 Respiratory Rate 16 Blood Pressure 186/102 H Pulse Oximetry 93 Oxygen Delivery Room Air 06/30/24 23:52 07/01/24 00:00 07/01/24 01:41 Temperature 99.1 F Pulse Rate 92 89 Respiratory Rate 16 Blood Pressure 180/100 H 140/76 Pulse Oximetry 94 Oxygen Delivery 07/01/24 03:43 07/01/24 04:00 Temperature 98.9 F Pulse Rate 90 97 Respiratory Rate 17 Blood Pressure 180/99 H Pulse Oximetry 94 Oxygen Delivery Intake/Output Intake/Output: Intake & Output 06/28/24 06/29/24 06/30/24 07/01/24 23:59 23:59 23:59 23:59 Intake Total 3042.5 1600 2801.7 1248.3 Output Total 4215 3865 2700 875 Balance -1172.5 -2265 101.7 373.3 Meds/Results Medications: Active Medications Generic Name Dose Route Start Last Admin Trade Name Freq PRN Reason Stop Dose Admin Acetaminophen 650 mg 06/27/24 08:21 Acetaminophen 325 Mg Tablet PO Q4H PRN Mild Pain (1-3) or Fever Al Hydrox/Mg Hydrox/Simethicone 30 ml 06/29/24 16:38 07/01/24 06:51 Mag Hydrox/Al Hydrox/Simeth 30 Ml Udc PO Not Given Q8HR VANDANA Chlordiazepoxide HCl 25 mg 06/27/24 07:40 Chlordiazepoxide (*Crx) 25 Mg Capsule PO Q6H PRN Withdrawal Enoxaparin Sodium 40 mg 06/29/24 09:00 07/01/24 09:15 Enoxaparin 40 Mg/0.4 Ml Syringe SUB-Q 40 mg DAILY VANDANA Administration Hydromorphone HCl 1 mg 06/29/24 15:34 07/01/24 00:45 Hydromorphone Hcl Inj (*Crx) 1 Mg/Ml Syr IV PUSH 1 mg Q3H PRN Administration Pain Rated 7-10 Piperacillin/Tazobactam/Dextrose 3.375 gm in 50 mls @ 100 mls/hr 06/27/24 18:00 07/01/24 09:31 Zosyn 3.375 Gm/Ns 50 Ml IVPB 100 mls/hr Q6H VANDANA Administration Ibuprofen 800 mg in 200 mls @ 400 mls/hr 06/29/24 17:00 07/01/24 09:17 Caldolor 800 Mg/200 Ml IVPB 400 mls/hr Q8H VANDANA Administration Potassium Chloride/Dextrose 1,000 mls @ 100 mls/hr 07/01/24 09:00 07/01/24 09:22 Kcl 20 Meq/D5w 1,000 Ml IV CONT 100 mls/hr .Q10H VANDANA Administration Lidocaine 1 patch 06/30/24 09:00 07/01/24 09:38 Lidocaine 5% Patch TRANSDERM 1 patch DAILY VANDNAA Administration Miscellaneous Information 1 each 06/29/24 00:[address] Of Application? XX 07/29/24 00:00 CLARIFY VANDANA Ondansetron HCl 4 mg 06/27/24 08:21 07/01/24 06:03 Ondansetron Inj 4 Mg/2 Ml Vial IV PUSH 4 mg Q4H PRN Administration Nausea Pantoprazole Sodium 40 mg 06/28/24 09:00 07/01/24 09:14 Pantoprazole Sodium Iv 40 Mg Vial IV PUSH 40 mg QAM VANDANA Administration Thiamine HCl 100 mg 06/27/24 09:00 07/01/24 09:14 Thiamine Hcl 200 Mg/2 Ml Vial IV PUSH 100 mg DAILY VANDANA Administration Radiology Results: ITS Impressions Chest/Abdomen/Pelvis CTA 06/27/24 06:17 IMPRESSION: CHEST: 1. No pulmonary embolism. No aortic dissection 2. No acute cardiopulmonary pathology. ABDOMEN/PELVIS: 1. Small bowel obstruction with the transition zone in the terminal ileum area. Clinical correlation advised. 2. No evidence of appendicitis, or diverticulitis. Head CT 06/27/24 06:59 IMPRESSION: No acute intracranial findings. Cervical Spine CT 06/27/24 07:58 IMPRESSION: No acute osseous abnormality cervical spine. Multilevel degenerative disc disease. Small Bowel X-Ray 06/28/24 23:13 IMPRESSION: High-grade small bowel obstruction, as detailed above. Abdomen X-Ray 07/01/24 06:32 Impression: NG tube tip at the GE junction. Further advancement of NG tube by at least 10 cm advised to ensure placement in the stomach. Possible small bowel obstruction. Labs Labs: Laboratory Results - last 24 hr 06/30/24 06/30/24 06/30/24 12:10 18:12 23:47 WBC RBC Hgb Hct MCV MCH MCHC RDW Plt Count MPV Sodium Potassium Chloride Carbon Dioxide Anion Gap BUN Creatinine Estim Creat Clear Calc Estimated GFR Glucose POC Capillary Glucose 82 76 71 Calcium Total Bilirubin AST ALT Alkaline Phosphatase Total Protein Albumin 07/01/24 07/01/24 07/01/24 01:57 05:41 05:42 WBC 8.1 RBC 4.59 L Hgb 14.4 Hct 46.7 MCV 101.7 H MCH 31.4 MCHC 30.8 L RDW 13.4 Plt Count 248 MPV 9.6 Sodium 149 H Potassium 3.9 Chloride 114 H Carbon Dioxide 23 Anion Gap 12 BUN 14 D Creatinine 1.14 Estim Creat Clear Calc 55 Estimated GFR > 60 Glucose 70 POC Capillary Glucose 74 68 Calcium 8.4 Total Bilirubin 0.6 AST 29 ALT 20 Alkaline Phosphatase 42 Total Protein 6.0 L Albumin 2.9 L Quality VTE Prophylaxis VTE prophylaxis: pharmacologic ordered -Patient's previous records reviewed on admission -ER notes reviewed in detail on admission -discussed all findings and current treatment plan with patient/Family/POA -Consultations reviewed for recommendations -Patient's disposition for safe discharge discussed with family service caseworker Dictation performed by [employer] direct speech recognition software, therefore senior marketing data analyst variants and typographical errors may occur. Hospitalist MIPS Advance Care Plan I have confirmed that the patient's Advanced Care Plan is present, code status is documented, or surrogate decision maker is listed in patient medical record.: Yes Medication Reconciliation I have utilized all available resources to obtain, update and review the patients current medications (includes all prescriptions, OTC, herbals, cannabis, and nutritional supplements).: Yes The patient is not eligible for med reconciliation; the patient is in a emergent medical situation where delaying treatment would jeopardize the patients health.: No
--- NOTE | 2024-07-01 10:25 | PM.PNGS ---
Progress Note: A&P Assessment and Plan (1) Small bowel obstruction: Code(s): K56.609 - Unspecified intestinal obstruction, unspecified as to partial versus complete obstruction Status: Acute Assessment and Plan: S/p exploratory laparotomy with adhesiolysis on 06/29. Awaiting return of bowel function. NG tube pulled out this morning and staff was unable to replace at the bedside after multiple attempts. He does appear more distended this morning and more tender. I discussed the importance of NG tube decompression and recommended trying to replace NG tube this morning. He refused to allow me to try replacing it but agreed to fluoroscopy guided NG placement. Continue bowel rest and IV fluids. Encouraged patient again to try getting out of the bed to the chair and try ambulating today. Nursing staff is going to attempt this morning, but will order PT/OT if needed. (2) Chronic alcohol use: Code(s): F10.90 - Alcohol use, unspecified, uncomplicated Status: Acute Assessment and Plan: Management per Hospitalist. Currently on withdrawal protocol and no signs of acute alcohol withdrawal. Plan I have discussed the patient's case and plan of care with Dr. Plata. Subjective Subjective Date/Time Seen: 07/01/24 10:25 Post Op day: 2 Patient reports: flatus (Little flatus) and no bowel movement Interval history: This morning, the patient was attempting to get up to the side of the bed to urinate in the urinal and his NG was tube pulled out. Staff attempted to place the NG tube at the bedside multiple times this morning. He had 650 cc out of the NG tube overnight and 700 out yesterday. He is passing very little flatus and still no BM. He feels bloated, but not nauseous. No vomiting. He refused to allow me to try again this morning at the bedside. He has not been out of the bed to get in the chair. He attempted to sit at the side of the bed last night but refused to get up to the chair. Review of Systems Review of Systems: All systems reviewed & are unremarkable except as noted in HPI and below Exam GI: Inspection: distended Auscultation: Hypoactive bowel sounds present (few bowel sounds ) Other: Abdomen more distended today but soft. He is also more diffusely tender, but no guarding. Midline incision with glue intact and minimal bruising of the incision, but no drainage or erythema. Extrem: General: no calf tenderness and no edema Objective Data Vital Signs Vital Signs: Vital Signs - 24 hr 06/30/24 12:00 06/30/24 12:00 06/30/24 16:00 Temperature 98.1 F Pulse Rate 85 90 91 Respiratory Rate 18 Blood Pressure 162/96 H Pulse Oximetry 98 Oxygen Delivery 06/30/24 20:00 06/30/24 20:00 06/30/24 20:00 Temperature 98.8 F Pulse Rate 97 84 Respiratory Rate 16 Blood Pressure 186/102 H Pulse Oximetry 93 Oxygen Delivery Room Air 06/30/24 23:52 07/01/24 00:00 07/01/24 01:41 Temperature 99.1 F Pulse Rate 92 89 Respiratory Rate 16 Blood Pressure 180/100 H 140/76 Pulse Oximetry 94 Oxygen Delivery 07/01/24 03:43 07/01/24 04:00 Temperature 98.9 F Pulse Rate 90 97 Respiratory Rate 17 Blood Pressure 180/99 H Pulse Oximetry 94 Oxygen Delivery Intake/Output Intake/Output: Intake & Output 06/28/24 06/29/24 06/30/24 07/01/24 23:59 23:59 23:59 23:59 Intake Total 3042.5 1600 2801.7 1248.3 Output Total 4215 3865 2700 875 Balance -1172.5 -2265 101.7 373.3 Meds/Results Medications: Active Medications Generic Name Dose Route Start Last Admin Trade Name Freq PRN Reason Stop Dose Admin Acetaminophen 650 mg 06/27/24 08:21 Acetaminophen 325 Mg Tablet PO Q4H PRN Mild Pain (1-3) or Fever Al Hydrox/Mg Hydrox/Simethicone 30 ml 06/29/24 16:38 07/01/24 06:51 Mag Hydrox/Al Hydrox/Simeth 30 Ml Udc PO Not Given Q8HR VANDANA Chlordiazepoxide HCl 25 mg 06/27/24 07:40 Chlordiazepoxide (*Crx) 25 Mg Capsule PO Q6H PRN Withdrawal Enoxaparin Sodium 40 mg 06/29/24 09:00 07/01/24 09:15 Enoxaparin 40 Mg/0.4 Ml Syringe SUB-Q 40 mg DAILY VANDANA Administration Hydromorphone HCl 1 mg 06/29/24 15:34 07/01/24 00:45 Hydromorphone Hcl Inj (*Crx) 1 Mg/Ml Syr IV PUSH 1 mg Q3H PRN Administration Pain Rated 7-10 Piperacillin/Tazobactam/Dextrose 3.375 gm in 50 mls @ 100 mls/hr 06/27/24 18:00 07/01/24 09:31 Zosyn 3.375 Gm/Ns 50 Ml IVPB 100 mls/hr Q6H VANDANA Administration Ibuprofen 800 mg in 200 mls @ 400 mls/hr 06/29/24 17:00 07/01/24 09:17 Caldolor 800 Mg/200 Ml IVPB 400 mls/hr Q8H VANDANA Administration Potassium Chloride/Dextrose 1,000 mls @ 100 mls/hr 07/01/24 09:00 07/01/24 09:22 Kcl 20 Meq/D5w 1,000 Ml IV CONT 100 mls/hr .Q10H VANDANA Administration Lidocaine 1 patch 06/30/24 09:00 07/01/24 09:38 Lidocaine 5% Patch TRANSDERM 1 patch DAILY VANDANA Administration Miscellaneous Information 1 each 06/29/24 00:[address] Of Application? XX 07/29/24 00:00 CLARIFY VANDANA Ondansetron HCl 4 mg 06/27/24 08:21 07/01/24 06:03 Ondansetron Inj 4 Mg/2 Ml Vial IV PUSH 4 mg Q4H PRN Administration Nausea Pantoprazole Sodium 40 mg 06/28/24 09:00 07/01/24 09:14 Pantoprazole Sodium Iv 40 Mg Vial IV PUSH 40 mg QAM VANDANA Administration Thiamine HCl 100 mg 06/27/24 09:00 07/01/24 09:14 Thiamine Hcl 200 Mg/2 Ml Vial IV PUSH 100 mg DAILY VANDANA Administration Radiology Results: ITS Impressions Chest/Abdomen/Pelvis CTA 06/27/24 06:17 IMPRESSION: CHEST: 1. No pulmonary embolism. No aortic dissection 2. No acute cardiopulmonary pathology. ABDOMEN/PELVIS: 1. Small bowel obstruction with the transition zone in the terminal ileum area. Clinical correlation advised. 2. No evidence of appendicitis, or diverticulitis. Head CT 06/27/24 06:59 IMPRESSION: No acute intracranial findings. Cervical Spine CT 06/27/24 07:58 IMPRESSION: No acute osseous abnormality cervical spine. Multilevel degenerative disc disease. Small Bowel X-Ray 06/28/24 23:13 IMPRESSION: High-grade small bowel obstruction, as detailed above. Abdomen X-Ray 07/01/24 06:32 Impression: NG tube tip at the GE junction. Further advancement of NG tube by at least 10 cm advised to ensure placement in the stomach. Possible small bowel obstruction. Labs Labs: Laboratory Results - last 24 hr 06/30/24 06/30/24 06/30/24 12:10 18:12 23:47 WBC RBC Hgb Hct MCV MCH MCHC RDW Plt Count MPV Sodium Potassium Chloride Carbon Dioxide Anion Gap BUN Creatinine Estim Creat Clear Calc Estimated GFR Glucose POC Capillary Glucose 82 76 71 Calcium Total Bilirubin AST ALT Alkaline Phosphatase Total Protein Albumin 07/01/24 07/01/24 07/01/24 01:57 05:41 05:42 WBC 8.1 RBC 4.59 L Hgb 14.4 Hct 46.7 MCV 101.7 H MCH 31.4 MCHC 30.8 L RDW 13.4 Plt Count 248 MPV 9.6 Sodium 149 H Potassium 3.9 Chloride 114 H Carbon Dioxide 23 Anion Gap 12 BUN 14 D Creatinine 1.14 Estim Creat Clear Calc 55 Estimated GFR > 60 Glucose 70 POC Capillary Glucose 74 68 Calcium 8.4 Total Bilirubin 0.6 AST 29 ALT 20 Alkaline Phosphatase 42 Total Protein 6.0 L Albumin 2.9 L
[2024-07-01 11:32] LABS: Glucose Point of Care 84 mg/dl (65-105)
[2024-07-01 13:00] LABS: Anion Gap 12 mmol/L (4-12); Blood Urea Nitrogen 11 mg/dL (9-20); Calcium 8.2 mg/dL (8.4-10.2); Carbon Dioxide 21 mmol/L (22-30); Chloride 115 mmol/L (98-107); Estimated CRCL calculation 66 ml/min; Estimated Glomerular Filt Rate > 60; Glucose 95 mg/dL (65-110); Potassium 3.6 mmol/L (3.4-5.0); Sodium 148 mmol/L (137-145)
[2024-07-01] MEDS: MAG HYDROX/AL HYDROX/SIMETH 30 ML UDC PO ×2 (14:57→20:35)
[2024-07-01 18:35] LABS: Glucose Point of Care 97 mg/dl (65-105)
[2024-07-01] MEDS: hydrALAZINE HCL 20 MG/ML VIAL 5 MG IV PUSH (23:38)
[2024-07-01] MEDS: IBUPROFEN IV 800 MG/200 ML 800 MG/200 ML BAG 200 MG IVPB (23:38)
[2024-07-01 23:42] LABS: Glucose Point of Care 120 mg/dl (65-105)
[2024-07-02] VITALS (8 sets, daily range): BP systolic 158–182; BP diastolic 90–99; PULSE 79–112; RESP 13–18; TEMP 36–36.4; O2SAT 95–97; BMI 25.9
[2024-07-02] MEDS: KCL 20 MEQ/D5W 1,000 ML 1,000 ML 50 ML IV CONT ×2 (01:41→21:17)
[2024-07-02] MEDS: PIPERACILLN/TAZ 3.375GM/NS50ML 3.375 GM/50 ML BAG IVPB ×4 (02:05→21:19)
[2024-07-02 03:51] LABS: Glucose Point of Care 97 mg/dl (65-105)
[2024-07-02] MEDS: MAG HYDROX/AL HYDROX/SIMETH 30 ML UDC PO ×3 (05:55→21:22)
[2024-07-02 06:41] LABS: Hematocrit 48.4 % (42.0-52.0); Hemoglobin 15.2 g/dL (14.0-18.0); Mean Corpuscular HGB Conc 31.4 g/dl (32-36); Mean Corpuscular Hemoglobin 32.1 pg (26-34); Mean Corpuscular Volume 102.3 fl (80-100); Mean Platelet Volume 10.4 fl (7.4-10.4); Platelet Count Result 248 k/mm3 (150-375); Red Blood Count 4.73 M/mm3 (4.6-6.20); Red Cell Distribution Width 13.6 % (11.5-14.5); White Blood Count 7.8 K/mm3 (4.5-10.0)
[2024-07-02 06:52] LABS: Alanine Aminotransferase 17 U/L (6-50); Albumin Level 2.7 g/dL (3.5-5.1); Alkaline Phosphatase 39 U/L (38-126); Anion Gap 8 mmol/L (4-12); Aspartate Amino Transferase 30 U/L (17-59); Bilirubin,Total 0.6 mg/dL (0.2-1.3); Blood Urea Nitrogen 8 mg/dL (9-20); Carbon Dioxide 25 mmol/L (22-30); Chloride 113 mmol/L (98-107); Estimated CRCL calculation 66 ml/min; Estimated Glomerular Filt Rate > 60; Glucose 89 mg/dL (65-110); Potassium 3.7 mmol/L (3.4-5.0); Sodium 146 mmol/L (137-145)
--- NOTE | 2024-07-02 08:53 | WPDPN ---
Progress Note: A&P Assessment and Plan (1) Small bowel obstruction: Code(s): K56.609 - Unspecified intestinal obstruction, unspecified as to partial versus complete obstruction Status: Acute Assessment and Plan: Postop day 3 after exploratory laparotomy adhesiolysis for small bowel obstruction. He continues to have a postoperative ileus. Continue NG tube decompression and NPO status. Will add some Reglan to be given IV q.6 hours. Potassium is 3.7 today. Will give him a 40mEq bolus. IV fluids increased [id number] an hour to keep up with his NG tube losses. Creatinine is normal so his acute kidney injury has resolved. I think he will be able to handle the IV fluid. Encourage him to a set up in a chair t.i.d. today and walked to the bathroom. I explained to him that it is critically important to continue having a nasogastric tube in place and if it comes out again will need to be placed again as long as he still has the postoperative ileus. Patient's blood pressure has been the 170s systolic. Will use of metoprolol IV bolus to control. Management of any alcohol withdrawal symptoms as per hospitalist service. Subjective Date/time seen: 07/02/24 08:53 Interval history: Patient is postop day 3 after exploratory laparotomy adhesiolysis for high-grade small-bowel obstruction. A nasogastric had to be replaced yesterday under fluoroscopy. It is draining now and his output with the NG tube was [id number] overnight. It is still bilious. He states he is passing small amount of flatus but no bowel movement yet. Nurses say he has not been very motivated to get out of bed today. He denies any nausea today. Exam GI: Other: The abdomen is moderately distended. Midline incision is intact without redness or drainage. Stable diffuse tenderness but no peritoneal signs. Hypoactive bowel sounds noted. Objective Data Vital Signs Vital Signs: Vital Signs - 24 hr 07/01/24 12:00 07/01/24 12:00 07/01/24 16:00 Temperature 36.6 C Pulse Rate 96 95 100 Respiratory Rate 20 Blood Pressure 168/93 H Pulse Oximetry 95 Oxygen Delivery 07/01/24 16:00 07/01/24 20:00 07/01/24 20:00 Temperature 36.8 C 36.6 C Pulse Rate 88 94 Respiratory Rate 20 13 Blood Pressure 176/96 H 180/95 H Pulse Oximetry 97 95 Oxygen Delivery Room Air 07/01/24 20:00 07/02/24 00:00 07/02/24 00:09 Temperature 36.4 C Pulse Rate 97 103 H 79 Respiratory Rate 14 Blood Pressure 182/93 H Pulse Oximetry 97 Oxygen Delivery 07/02/24 01:28 07/02/24 04:00 07/02/24 05:42 Temperature 36.2 C L Pulse Rate 95 97 Respiratory Rate 13 Blood Pressure 158/90 H 164/99 H Pulse Oximetry 97 Oxygen Delivery Intake/Output Intake/Output: Intake & Output 06/29/24 06/30/24 07/01/24 07/02/24 23:59 23:59 23:59 23:59 Intake Total 1600 2801.7 2798.3 250 Output Total 3865 2700 2675 1300 Balance -2265 101.7 123.3 -1050 Meds/Results Medications: Active Medications Generic Name Dose Route Start Last Admin Trade Name Freq PRN Reason Stop Dose Admin Acetaminophen 650 mg 06/27/24 08:21 Acetaminophen 325 Mg Tablet PO Q4H PRN Mild Pain (1-3) or Fever Al Hydrox/Mg Hydrox/Simethicone 30 ml 06/29/24 16:38 07/02/24 05:55 Mag Hydrox/Al Hydrox/Simeth 30 Ml Udc PO 30 ml Q8HR VANDANA Administration Chlordiazepoxide HCl 25 mg 06/27/24 07:40 Chlordiazepoxide (*Crx) 25 Mg Capsule PO Q6H PRN Withdrawal Enoxaparin Sodium 40 mg 06/29/24 09:00 07/01/24 09:15 Enoxaparin 40 Mg/0.4 Ml Syringe SUB-Q 40 mg DAILY VANDANA Administration Hydromorphone HCl 1 mg 06/29/24 15:34 07/01/24 00:45 Hydromorphone Hcl Inj (*Crx) 1 Mg/Ml Syr IV PUSH 1 mg Q3H PRN Administration Pain Rated 7-10 Piperacillin/Tazobactam/Dextrose 3.375 gm in 50 mls @ 100 mls/hr 06/27/24 18:00 07/02/24 02:35 Zosyn 3.375 Gm/Ns 50 Ml IVPB Infused Q6H VANDANA Infusion Ibuprofen 800 mg in 200 mls @ 400 mls/hr 06/29/24 17:00 07/02/24 00:38 Caldolor 800 Mg/200 Ml IVPB Infused Q8H VANDANA Infusion Potassium Chloride/Dextrose 1,000 mls @ 130 mls/hr 07/01/24 09:00 07/02/24 01:41 Kcl 20 Meq/D5w 1,000 Ml IV CONT 50 mls/hr .Q7H42M VANDANA Administration Lidocaine 1 patch 06/30/24 09:00 07/01/24 09:38 Lidocaine 5% Patch TRANSDERM 1 patch DAILY VANDANA Administration Metoclopramide HCl 10 mg 07/02/24 12:00 Metoclopramide Hcl Inj 10 Mg/2 Ml Vial IV PUSH Q6HR VANDANA Metoprolol Tartrate 5 mg 07/02/24 08:51 Metoprolol Tartrate Inj 5 Mg/5 Ml Vial IV PUSH Q4H PRN Hypertension Ondansetron HCl 4 mg 06/27/24 08:21 07/01/24 06:03 Ondansetron Inj 4 Mg/2 Ml Vial IV PUSH 4 mg Q4H PRN Administration Nausea Pantoprazole Sodium 40 mg 06/28/24 09:00 07/01/24 09:14 Pantoprazole Sodium Iv 40 Mg Vial IV PUSH 40 mg QAM VANDANA Administration Thiamine HCl 100 mg 06/27/24 09:00 07/01/24 09:14 Thiamine Hcl 200 Mg/2 Ml Vial IV PUSH 100 mg DAILY VANDANA Administration Radiology Results: ITS Impressions Chest/Abdomen/Pelvis CTA 06/27/24 06:17 IMPRESSION: CHEST: 1. No pulmonary embolism. No aortic dissection 2. No acute cardiopulmonary pathology. ABDOMEN/PELVIS: 1. Small bowel obstruction with the transition zone in the terminal ileum area. Clinical correlation advised. 2. No evidence of appendicitis, or diverticulitis. Head CT 06/27/24 06:59 IMPRESSION: No acute intracranial findings. Cervical Spine CT 06/27/24 07:58 IMPRESSION: No acute osseous abnormality cervical spine. Multilevel degenerative disc disease. Small Bowel X-Ray 06/28/24 23:13 IMPRESSION: High-grade small bowel obstruction, as detailed above. Abdomen X-Ray 07/01/24 06:32 Impression: NG tube tip at the GE junction. Further advancement of NG tube by at least 10 cm advised to ensure placement in the stomach. Possible small bowel obstruction. NG Tube Placement 07/02/24 07:18 IMPRESSION: Fluoroscopy used during NG tube placement in the stomach. Labs Labs: Laboratory Results - last 24 hr 07/01/24 07/01/24 07/01/24 11:03 12:39 17:56 WBC RBC Hgb Hct MCV MCH MCHC RDW Plt Count MPV Sodium 148 H Potassium 3.6 Chloride 115 H Carbon Dioxide 21 L Anion Gap 12 BUN 11 Creatinine 0.93 Estim Creat Clear Calc 66 Estimated GFR > 60 Glucose 95 POC Capillary Glucose 84 97 Calcium 8.2 L Total Bilirubin AST ALT Alkaline Phosphatase Total Protein Albumin 07/01/24 07/02/24 07/02/24 23:29 03:47 06:15 WBC 7.8 RBC 4.73 Hgb 15.2 Hct 48.4 MCV 102.3 H MCH 32.1 MCHC 31.4 L RDW 13.6 Plt Count 248 MPV 10.4 Sodium 146 H Potassium 3.7 Chloride 113 H Carbon Dioxide 25 Anion Gap 8 BUN 8 L Creatinine 0.94 Estim Creat Clear Calc 66 Estimated GFR > 60 Glucose 89 POC Capillary Glucose 120 H 97 Calcium 8.0 L Total Bilirubin 0.6 AST 30 ALT 17 Alkaline Phosphatase 39 Total Protein 6.0 L Albumin 2.7 L
[2024-07-02] MEDS: LIDOCAINE 5% PATCH 1 PATCH TRANSDERM (09:34)
[2024-07-02] MEDS: ENOXAPARIN 40 MG/0.4 ML SYRINGE SUB-Q (09:35)
[2024-07-02] MEDS: THIAMINE HCL 200 MG/2 ML VIAL 100 MG IV PUSH (09:35)
[2024-07-02] MEDS: PANTOPRAZOLE SODIUM IV 40 MG VIAL IV PUSH (09:35)
[2024-07-02] MEDS: IBUPROFEN IV 800 MG/200 ML 800 MG/200 ML BAG 400 MG IVPB ×2 (10:18→17:23)
--- NOTE | 2024-07-02 10:28 | P.PNIM_ITS ---
Progress Note: A&P Assessment and Plan (1) Small bowel obstruction: Code(s): K56.609 - Unspecified intestinal obstruction, unspecified as to partial versus complete obstruction Status: Acute Assessment and Plan: Patient admitted after complaints of ABD pain with N/V. CT chest abdomen pelvis CTA was performed which showed no PE no aortic dissection. Abdomen pelvis showed small-bowel obstruction with the transition zone in the terminal ileum area. No evidence of appendicitis or diverticulitis. General surgery was consulted and patient was taken for exploratory laparotomy 06/29/2024 for repair serosal tears x2. IV fluids switched to Dextrose 5/water NA 149 today and BS 68. Patient had pulled out his NG tube was replaced under fluoroscopy, mild distention noted today having flatulence but no BM post op day 2. Patient post- op day 3 with A continued postoperative ileus will need to continue NPO and NG tube, surgery added Reglan. Sodium improving with adjustment to fluids. PICC placed and initiated TPN * NPO with Ice chips * NG tube to suction continued for decompression * pain control * ambulate as tolerated * Antiemetics * Will advance diet per surgery once bowel function has returned * Incentive spirometer (2) Chronic alcohol use: Code(s): F10.90 - Alcohol use, unspecified, uncomplicated Status: Acute Assessment and Plan: Does not appear in withdrawal at this time will continue to monitor * Last drink 06/23 * Thiamine, folic acid, and multi-vitamin * PPI daily * librium PRN * CIWA daily * Monitor and replenish electrolytes as needed (3) ORTEGA (acute kidney injury): Code(s): N17.9 - Acute kidney failure, unspecified Status: Resolved Assessment and Plan: * Acute kidney injury CR 1.98 POA since resolved with IV fluids (4) Hypernatremia: Code(s): E87.0 - Hyperosmolality and hypernatremia Status: Acute Assessment and Plan: * Patient now with hypernatremia at 149 discussed with surgery we will switch his IV fluids to dextrose 5 and water follow-up BMP later on today (5) Hyponatremia: Code(s): E87.1 - Hypo-osmolality and hyponatremia Status: Resolved Assessment and Plan: * Resolved likely secondary to dehydration and ETOH abuse patient was initially 130 POA resolved with IV fluids (6) Hypertension: Code(s): I10 - Essential (primary) hypertension Status: Acute Assessment and Plan: patient has been hypertensive systolics running between 180s to 160s. patient does not take any hypertensive medications at home will re-evaluate prior to discharge if patient will need oral antihypertensive medications at discharge after current acute issues are resolved. * I added hydralazine 20 mg IV push as needed for systolics greater than 160 * BP per unit protocol Plan Code status: Full code per patient DVT prophylaxis: Lovenox Stress ulcer prophylaxis: Protonix 40 daily PT/OT notes: Ambulatory Disposition: Patient continues admission to the medical unit for further treatment small-bowel obstruction postop day 2 with NG tube for decompression will slowly advanced diet as tolerated once bowel function has returned. Patient plans to discharge back to home when medically stable. Remains NPO at this time Time Spent With Patient Time with patient: 15 - 25 minutes Subjective Date/time seen: 07/02/24 10:28 Interval history: This is a 64-year-old male who presented to the ED with few days history of nausea vomiting and abdominal pain. He also reports not having bowel movement for past few days. Was found to has small-bowel obstruction underwent exploratory laparotomy in it colitis with repair of serosal tears 06/30/2024. 07/02/2024: Patient with no new complaints still with ABD pain. Patient continues to have a copious amount drainage from the wounds NG tube. Patient reported he did gas still bowel movement. Review of Systems Review of Systems: All systems reviewed & are unremarkable except as noted in HPI and below Exam Const: General: comfortable and no acute distress HENMT: Mouth: Yes moist mucous membranes Eyes: General: appearance normal, both eyes and all related structures Pup ils: Equal, round and reactive pupils present Neck: Neck: supple and no JVD Resp: Effort & Inspection: normal respiratory effort Auscultation: clear to auscultation bilaterally Cardio: Rate: regular rate Rhythm: regular rhythm GI: Auscultation: abnormal bowel sounds (hypoactive) Skin: General skin exam: normal color Neuro: General: gait normal Cranial nerves: Yes Equal, round and reactive pupils present Speech: normal speech Extrem: General: normal to inspection Psych: Mental Status: mental status grossly normal Affect: normal affect Objective Data Vital Signs Vital Signs: Vital Signs - 24 hr 07/01/24 12:00 07/01/24 12:00 07/01/24 16:00 Temperature 98 F Pulse Rate 96 95 100 Respiratory Rate 20 Blood Pressure 168/93 H Pulse Oximetry 95 Oxygen Delivery 07/01/24 16:00 07/01/24 20:00 07/01/24 20:00 Temperature 98.3 F 97.9 F Pulse Rate 88 94 Respiratory Rate 20 13 Blood Pressure 176/96 H 180/95 H Pulse Oximetry 97 95 Oxygen Delivery Room Air 07/01/24 20:00 07/02/24 00:00 07/02/24 00:09 Temperature 97.6 F Pulse Rate 97 103 H 79 Respiratory Rate 14 Blood Pressure 182/93 H Pulse Oximetry 97 Oxygen Delivery 07/02/24 01:28 07/02/24 04:00 07/02/24 05:42 Temperature 97.1 F L Pulse Rate 95 97 Respiratory Rate 13 Blood Pressure 158/90 H 164/99 H Pulse Oximetry 97 Oxygen Delivery Intake/Output Intake/Output: Intake & Output 06/29/24 06/30/24 07/01/24 07/02/24 23:59 23:59 23:59 23:59 Intake Total 1600 2801.7 2798.3 250 Output Total 3865 2700 2675 1300 Balance -2265 101.7 123.3 -1050 Meds/Results Medications: Active Medications Generic Name Dose Route Start Last Admin Trade Name Freq PRN Reason Stop Dose Admin Acetaminophen 650 mg 06/27/24 08:21 Acetaminophen 325 Mg Tablet PO Q4H PRN Mild Pain (1-3) or Fever Al Hydrox/Mg Hydrox/Simethicone 30 ml 06/29/24 16:38 07/02/24 05:55 Mag Hydrox/Al Hydrox/Simeth 30 Ml Udc PO 30 ml Q8HR VANDANA Administration Chlordiazepoxide HCl 25 mg 06/27/24 07:40 Chlordiazepoxide (*Crx) 25 Mg Capsule PO Q6H PRN Withdrawal Enoxaparin Sodium 40 mg 06/29/24 09:00 07/02/24 09:35 Enoxaparin 40 Mg/0.4 Ml Syringe SUB-Q 40 mg DAILY VANDANA Administration Hydromorphone HCl 1 mg 06/29/24 15:34 07/01/24 00:45 Hydromorphone Hcl Inj (*Crx) 1 Mg/Ml Syr IV PUSH 1 mg Q3H PRN Administration Pain Rated 7-10 Piperacillin/Tazobactam/Dextrose 3.375 gm in 50 mls @ 100 mls/hr 06/27/24 18:00 07/02/24 09:32 Zosyn 3.375 Gm/Ns 50 Ml IVPB 100 mls/hr Q6H VANDANA Administration Ibuprofen 800 mg in 200 mls @ 400 mls/hr 06/29/24 17:00 07/02/24 10:18 Caldolor 800 Mg/200 Ml IVPB 400 mls/hr Q8H VANDANA Administration Potassium Chloride/Dextrose 1,000 mls @ 130 mls/hr 07/01/24 09:00 07/02/24 01:41 Kcl 20 Meq/D5w 1,000 Ml IV CONT 50 mls/hr .[id number] VANDANA Administration Potassium Chloride 40 meq/ 520 mls @ 130 mls/hr 07/02/24 08:53 Sodium Chloride IVPB 07/02/24 12:52 ONCE ONE Lidocaine 1 patch 06/30/24 09:00 07/02/24 09:34 Lidocaine 5% Patch TRANSDERM 1 patch DAILY VANDANA Administration Metoclopramide HCl 10 mg 07/02/24 12:00 Metoclopramide Hcl Inj 10 Mg/2 Ml Vial IV PUSH Q6HR VANDANA Metoprolol Tartrate 5 mg 07/02/24 08:51 Metoprolol Tartrate Inj 5 Mg/5 Ml Vial IV PUSH Q4H PRN Hypertension Ondansetron HCl 4 mg 06/27/24 08:21 07/01/24 06:03 Ondansetron Inj 4 Mg/2 Ml Vial IV PUSH 4 mg Q4H PRN Administration Nausea Pantoprazole Sodium 40 mg 06/28/24 09:00 07/02/24 09:35 Pantoprazole Sodium Iv 40 Mg Vial IV PUSH 40 mg QAM VANDANA Administration Thiamine HCl 100 mg 06/27/24 09:00 07/02/24 09:35 Thiamine Hcl 200 Mg/2 Ml Vial IV PUSH 100 mg DAILY VANDANA Administration Radiology Results: ITS Impressions Chest/Abdomen/Pelvis CTA 06/27/24 06:17 IMPRESSION: CHEST: 1. No pulmonary embolism. No aortic dissection 2. No acute cardiopulmonary pathology. ABDOMEN/PELVIS: 1. Small bowel obstruction with the transition zone in the terminal ileum area. Clinical correlation advised. 2. No evidence of appendicitis, or diverticulitis. Head CT 06/27/24 06:59 IMPRESSION: No acute intracranial findings. Cervical Spine CT 06/27/24 07:58 IMPRESSION: No acute osseous abnormality cervical spine. Multilevel degenerative disc disease. Small Bowel X-Ray 06/28/24 23:13 IMPRESSION: High-grade small bowel obstruction, as detailed above. Abdomen X-Ray 07/01/24 06:32 Impression: NG tube tip at the GE junction. Further advancement of NG tube by at least 10 cm advised to ensure placement in the stomach. Possible small bowel obstruction. NG Tube Placement 07/02/24 07:18 IMPRESSION: Fluoroscopy used during NG tube placement in the stomach. Labs Labs: Laboratory Results - last 24 hr 07/01/24 07/01/24 07/01/24 11:03 12:39 17:56 WBC RBC Hgb Hct MCV MCH MCHC RDW Plt Count MPV Sodium 148 H Potassium 3.6 Chloride 115 H Carbon Dioxide 21 L Anion Gap 12 BUN 11 Creatinine 0.93 Estim Creat Clear Calc 66 Estimated GFR > 60 Glucose 95 POC Capillary Glucose 84 97 Calcium 8.2 L Total Bilirubin AST ALT Alkaline Phosphatase Total Protein Albumin 07/01/24 07/02/24 07/02/24 23:29 03:47 06:15 WBC 7.8 RBC 4.73 Hgb 15.2 Hct 48.4 MCV 102.3 H MCH 32.1 MCHC 31.4 L RDW 13.6 Plt Count 248 MPV 10.4 Sodium 146 H Potassium 3.7 Chloride 113 H Carbon Dioxide 25 Anion Gap 8 BUN 8 L Creatinine 0.94 Estim Creat Clear Calc 66 Estimated GFR > 60 Glucose 89 POC Capillary Glucose 120 H 97 Calcium 8.0 L Total Bilirubin 0.6 AST 30 ALT 17 Alkaline Phosphatase 39 Total Protein 6.0 L Albumin 2.7 L Quality VTE Prophylaxis VTE prophylaxis: pharmacologic ordered -Patient's previous records reviewed on admission -ER notes reviewed in detail on admission -discussed all findings and current treatment plan with patient/Family/POA -Consultations reviewed for recommendations -Patient's disposition for safe discharge discussed with cyanide case hardener Dictation performed by [employer] direct speech recognition software, therefore cafe attendant variants and typographical errors may occur. Hospitalist MIPS Advance Care Plan I have confirmed that the patient's Advanced Care Plan is present, code status is documented, or surrogate decision maker is listed in patient medical record.: Yes Medication Reconciliation I have utilized all available resources to obtain, update and review the patients current medications (includes all prescriptions, OTC, herbals, cannabis, and nutritional supplements).: Yes The patient is not eligible for med reconciliation; the patient is in a emergent medical situation where delaying treatment would jeopardize the patients health.: No
[2024-07-02] MEDS: CALCIUM GLUC 1,000 MG/NS 50 ML 1,000 MG/50 ML BAG 100 MG IVPB (10:52)
[2024-07-02] MEDS: POTASSIUM CHLORIDE INJ 40 MEQ in SODIUM CHLORIDE 0.9% IV 500 ML 130 MEQ IVPB (11:35)
[2024-07-02] MEDS: METOCLOPRAMIDE HCL INJ 10 MG/2 ML VIAL IV PUSH ×2 (11:39→17:25)
[2024-07-02 12:04] LABS: Glucose Point of Care 77 mg/dl (65-105)
[2024-07-02] MEDS: LIDOCAINE 1% LOCAL INJ 2 ML AMPUL 5 ML INFILTRATE (14:30)
[2024-07-02] MEDS: FAT EMULSIONS IV 20% 250 ML 20.83 ML IVPB (16:03)
[2024-07-02] MEDS: AMINO ACIDS 5%/D15W/E-LYTES/CA 1,000 ML with MULTIVITAMINS-12 INJ VIAL 1 1.25 ML, MULTI... 40 ML IV CONT (16:03)
[2024-07-02 18:15] LABS: Glucose Point of Care 109 mg/dl (65-105)
[2024-07-02] MEDS: CENTRAL LINE FLUSH 10 ML IV PUSH (21:17)
[2024-07-02 22:04] LABS: Magnesium 2.3 mg/dL (1.6-2.3)
[2024-07-02 22:11] LABS: Transferrin 97 mg/dL (206-381)
[2024-07-03 00:14] LABS: Glucose Point of Care 138 mg/dl (65-105)
[2024-07-03] MEDS: IBUPROFEN IV 800 MG/200 ML 800 MG/200 ML BAG 400 MG IVPB ×3 (00:25→18:10)
[2024-07-03] MEDS: METOCLOPRAMIDE HCL INJ 10 MG/2 ML VIAL IV PUSH ×5 (00:28→23:44)
[2024-07-03] MEDS: PIPERACILLN/TAZ 3.375GM/NS50ML 3.375 GM/50 ML BAG IVPB ×4 (02:48→21:49)
[2024-07-03 05:00] VITALS: BP 156/90; PULSE 104; RESP 18; TEMP 36.6; O2SAT 98
[2024-07-03] MEDS: MAG HYDROX/AL HYDROX/SIMETH 30 ML UDC PO ×3 (05:49→21:52)
[2024-07-03 05:57] LABS: Glucose Point of Care 188 mg/dl (65-105)
[2024-07-03] MEDS: CENTRAL LINE FLUSH 10 ML IV PUSH ×3 (06:05→21:52)
[2024-07-03 06:16] LABS: Basophils Percent Auto 0.2 % (0.2-1.2); Eosinophils Percent Auto 0.4 % (0-4.4); Hematocrit 40.6 % (42.0-52.0); Hemoglobin 13.4 g/dL (14.0-18.0); Immature Granulocyte Absolute 0.06 K/mm3 (0.00-0.031); Immature Granulocyte Percent A 0.6 % (0-0.5); Lymphocytes Absolute Auto 0.79 K/mm3 (0.9-3.2); Lymphocytes Percent Auto 8.2 % (18.3-44.2); Mean Corpuscular Hemoglobin 31.9 pg (26-34); Mean Corpuscular Volume 96.7 fl (80-100); Mean Platelet Volume 9.9 fl (7.4-10.4); Monocytes Absolute Auto 0.6 K/mm3 (0.1-0.6); Monocytes Percent Auto 6.5 % (2.6-8.5); Neutrophils Absolute Auto 8.1 K/mm3 (1.3-6.7); Neutrophils Percent Auto 84.1 % (45.5-73.1); Platelet Count Result 220 k/mm3 (150-375); Red Cell Distribution Width 13.4 % (11.5-14.5); White Blood Count 9.6 K/mm3 (4.5-10.0)
[2024-07-03 06:27] LABS: Alanine Aminotransferase 17 U/L (6-50); Albumin Level 2.6 g/dL (3.5-5.1); Alkaline Phosphatase 41 U/L (38-126); Anion Gap 4 mmol/L (4-12); Aspartate Amino Transferase 20 U/L (17-59); Bilirubin,Total 0.6 mg/dL (0.2-1.3); Blood Urea Nitrogen 11 mg/dL (9-20); Calcium 7.9 mg/dL (8.4-10.2); Carbon Dioxide 28 mmol/L (22-30); Chloride 110 mmol/L (98-107); Estimated CRCL calculation 69 ml/min; Estimated Glomerular Filt Rate > 60; Glucose 172 mg/dL (65-110); Phosphorus 3.3 mg/dL (2.5-4.5); Potassium 3.3 mmol/L (3.4-5.0); Sodium 142 mmol/L (137-145)
[2024-07-03 06:32] LABS: Partial Thromboplastin Time 33.8 Seconds (22.3-36.8)
[2024-07-03] MEDS: KCL 40 MEQ/D5/0.9% SOD CHL 1,000 ML 80 ML IV CONT (08:19)
[2024-07-03] MEDS: ENOXAPARIN 40 MG/0.4 ML SYRINGE SUB-Q (08:23)
[2024-07-03] MEDS: THIAMINE HCL 200 MG/2 ML VIAL 100 MG IV PUSH (08:24)
[2024-07-03] MEDS: LIDOCAINE 5% PATCH 1 PATCH TRANSDERM (08:24)
[2024-07-03] MEDS: PANTOPRAZOLE SODIUM IV 40 MG VIAL IV PUSH (08:24)
[2024-07-03 09:53] VITALS: O2SAT 95
[2024-07-03] MEDS: KCL 20 MEQ/SW 100 ML 100 ML 50 MEQ IVPB (10:10)
--- NOTE | 2024-07-03 10:16 | PM.PNGS ---
Progress Note: A&P Assessment and Plan (1) Small bowel obstruction: Code(s): K56.609 - Unspecified intestinal obstruction, unspecified as to partial versus complete obstruction Status: Acute Assessment and Plan: Await return of small bowel function. Does have bowel sounds today but no flatus or BM. Wound is healing adequately. Encouraged to ambulate. (2) Protein-calorie malnutrition, severe: Code(s): E43 - Unspecified severe protein-calorie malnutrition Status: Acute Assessment and Plan: Increase TPN to 60 cc an hour. Continue NPO until bowel function returns. (3) Chronic alcohol use: Code(s): F10.90 - Alcohol use, unspecified, uncomplicated Status: Chronic Assessment and Plan: Withdrawal precautions in place Subjective Subjective Date/Time Seen: 07/03/24 10:16 Post Op day: 5 Patient reports: feels better, pain is less, voiding w/o difficulty (Complains of urinary incontinence, dribbling), no flatus, no bowel movement and afebrile Exam Const: General: comfortable, alert, awake and thin Orientation/consciousness: patient oriented x3 GI: Inspection: abdominal wall ecchymosis, non-distended, incision (Dry and healing well) and scaphoid GI Palp: Yes Soft to palpation and Yes Tenderness to palpation present (GI) Auscultation: normoactive bowel sounds Objective Data Vital Signs Vital Signs: Vital Signs - 24 hr 07/02/24 12:00 07/02/24 20:00 07/02/24 21:00 Temperature 36.0 C L Pulse Rate 112 H 106 H Respiratory Rate 18 Blood Pressure 166/96 H Pulse Oximetry 95 Oxygen Delivery Room Air 07/03/24 05:00 07/03/24 08:00 07/03/24 09:53 Temperature 36.6 C Pulse Rate 104 H Respiratory Rate 18 Blood Pressure 156/90 H Pulse Oximetry 98 95 Oxygen Delivery Room Air Room Air Intake/Output Intake/Output: Intake & Output 06/30/24 07/01/24 07/02/24 07/03/24 23:59 23:59 23:59 23:59 Intake Total 2801.7 2798.3 1780 500 Output Total 2700 2675 2350 1775 Balance 101.7 123.3 -529 -1275 Meds/Results Medications: Active Medications Generic Name Dose Route Start Last Admin Trade Name Freq PRN Reason Stop Dose Admin Acetaminophen 650 mg 06/27/24 08:21 Acetaminophen 325 Mg Tablet PO Q4H PRN Mild Pain (1-3) or Fever Al Hydrox/Mg Hydrox/Simethicone 30 ml 06/29/24 16:38 07/03/24 05:49 Mag Hydrox/Al Hydrox/Simeth 30 Ml Udc PO 30 ml Q8HR VANDANA Administration Chlordiazepoxide HCl 25 mg 06/27/24 07:40 Chlordiazepoxide (*Crx) 25 Mg Capsule PO Q6H PRN Withdrawal Dextrose 12.5 gm 07/02/24 13:59 Dextrose 50% 25 Gm/50 Ml Syringe IV PUSH PRN PRN Hypoglycemia Protocol Enoxaparin Sodium 40 mg 06/29/24 09:00 07/03/24 08:23 Enoxaparin 40 Mg/0.4 Ml Syringe SUB-Q 40 mg DAILY VANDANA Administration Glucagon 1 mg 07/02/24 13:59 Glucagon For Inj 1 Mg Vial IM PRN PRN Hypoglycemia Protocol Glucose 15 gm 07/02/24 13:59 Glucose Oral Gel 15 Gm Of Glucse In 37.5 Gm Tube PO PRN PRN Hypoglycemia Protocol Hydralazine HCl 20 mg 07/02/24 10:27 Hydralazine Hcl 20 Mg/Ml Vial IV PUSH Q6H PRN Hypertension Hydromorphone HCl 1 mg 06/29/24 15:34 07/01/24 00:45 Hydromorphone Hcl Inj (*Crx) 1 Mg/Ml Syr IV PUSH 1 mg Q3H PRN Administration Pain Rated 7-10 Piperacillin/Tazobactam/Dextrose 3.375 gm in 50 mls @ 100 mls/hr 06/27/24 18:00 07/03/24 09:21 Zosyn 3.375 Gm/Ns 50 Ml IVPB 07/03/24 23:59 100 mls/hr Q6H VANDANA Administration Ibuprofen 800 mg in 200 mls @ 400 mls/hr 06/29/24 17:00 07/03/24 08:21 Caldolor 800 Mg/200 Ml IVPB 400 mls/hr Q8H VANDANA Administration Dextrose 1,000 mls @ 50 mls/hr 07/02/24 13:56 Dextrose 10% IV CONT .Q20H PRN if PN is interrupted Multivitamins 1.25 ml/ 1,002.5 mls @ 40 mls/hr 07/02/24 15:00 07/02/24 16:03 Multivitamins 1.25 ml/ Amino IV CONT 40 mls/hr Acids/Electrolytes/Dextrose .Q24H VANDANA Administration Protocol Dextrose 1,000 mls @ 100 mls/hr 07/02/24 13:59 Dextrose 5% 1,000 Ml IVPB PRN PRN Hypoglycemia Protocol Fat Emulsion Intravenous 250 mls @ 20.833 mls/hr 07/02/24 15:00 07/03/24 04:04 Lipids 20% IVPB Infused Q24H VANDANA Infusion Potassium Chloride/Dextrose/Sod Cl 1,000 mls @ 80 mls/hr 07/03/24 07:55 07/03/24 08:19 Kcl 40 Meq/D5ns IV CONT 80 mls/hr .[id number] VANDANA Administration Potassium Chloride 100 mls @ 50 mls/hr 07/03/24 08:40 07/03/24 10:10 Kcl 20 Meq/Sw 100 Ml IVPB 07/03/24 10:39 50 mls/hr ONCE ONE Administration Insulin Human Regular 0 units 07/02/24 18:00 07/03/24 06:05 Insulin Human Regular (*Bkc) 100 Units/Ml SUB-Q Not Given Q6HR VANDANA Protocol Lidocaine 1 patch 06/30/24 09:00 07/03/24 08:24 Lidocaine 5% Patch TRANSDERM 1 patch DAILY VANDANA Administration Metoclopramide HCl 10 mg 07/02/24 12:00 07/03/24 05:49 Metoclopramide Hcl Inj 10 Mg/2 Ml Vial IV PUSH 10 mg Q6HR VANDANA Administration Metoprolol Tartrate 5 mg 07/02/24 08:51 Metoprolol Tartrate Inj 5 Mg/5 Ml Vial IV PUSH Q4H PRN Hypertension Ondansetron HCl 4 mg 06/27/24 08:21 07/01/24 06:03 Ondansetron Inj 4 Mg/2 Ml Vial IV PUSH 4 mg Q4H PRN Administration Nausea Pantoprazole Sodium 40 mg 06/28/24 09:00 07/03/24 08:24 Pantoprazole Sodium Iv 40 Mg Vial IV PUSH 40 mg QAM VANDANA Administration Sodium Chloride 10 ml 07/02/24 22:00 07/03/24 06:05 Central Line Flush IV PUSH 10 ml Q8HR VANDANA Administration Sodium Chloride 10 ml 07/02/24 15:38 Central Line Flush IV PUSH PRN PRN with TPN bag changes Sodium Chloride 20 ml 07/02/24 15:38 Central Line Flush IV PUSH PRN PRN after blood draws Thiamine HCl 100 mg 06/27/24 09:00 07/03/24 08:24 Thiamine Hcl 200 Mg/2 Ml Vial IV PUSH 100 mg DAILY VANDANA Administration Radiology Results: ITS Impressions Chest/Abdomen/Pelvis CTA 06/27/24 06:17 IMPRESSION: CHEST: 1. No pulmonary embolism. No aortic dissection 2. No acute cardiopulmonary pathology. ABDOMEN/PELVIS: 1. Small bowel obstruction with the transition zone in the terminal ileum area. Clinical correlation advised. 2. No evidence of appendicitis, or diverticulitis. Head CT 06/27/24 06:59 IMPRESSION: No acute intracranial findings. Cervical Spine CT 06/27/24 07:58 IMPRESSION: No acute osseous abnormality cervical spine. Multilevel degenerative disc disease. Small Bowel X-Ray 06/28/24 23:13 IMPRESSION: High-grade small bowel obstruction, as detailed above. Abdomen X-Ray 07/01/24 06:32 Impression: NG tube tip at the GE junction. Further advancement of NG tube by at least 10 cm advised to ensure placement in the stomach. Possible small bowel obstruction. NG Tube Placement 07/02/24 07:18 IMPRESSION: Fluoroscopy used during NG tube placement in the stomach. Chest X-Ray 07/02/24 15:30 IMPRESSION: 1. Right PICC line tip at the caudal superior vena cava. 2. Unchanged mild streaky bibasilar atelectasis and discoid atelectasis at the superior segment of the right lower lobe. Labs Labs: Laboratory Results - last 24 hr 07/02/24 07/02/24 07/02/24 06:09 12:02 18:12 WBC RBC Hgb Hct MCV MCH MCHC RDW Plt Count MPV Immature Gran % (Auto) Neut % (Auto) Lymph % (Auto) [place] % (Auto) Eos % (Auto) Baso % (Auto) Lymph # (Auto) [place] # (Auto) Eos # (Auto) Baso # (Auto) Abs Immat Gran (auto) Absolute Neuts (auto) Absolute Nucleated RBC Nucleated RBC % APTT Sodium Potassium Chloride Carbon Dioxide Anion Gap BUN Creatinine Estim Creat Clear Calc Estimated GFR Glucose POC Capillary Glucose 77 109 H Calcium Phosphorus Magnesium 2.3 Transferrin 97 L Total Bilirubin AST ALT Alkaline Phosphatase Total Protein Albumin 07/03/24 07/03/24 07/03/24 00:10 05:54 06:01 WBC 9.6 RBC 4.20 L Hgb 13.4 L Hct 40.6 L MCV 96.7 D MCH 31.9 MCHC 33.0 RDW 13.4 Plt Count 220 MPV 9.9 Immature Gran % (Auto) 0.6 H Neut % (Auto) 84.1 H Lymph % (Auto) 8.2 L [place] % (Auto) 6.5 Eos % (Auto) 0.4 Baso % (Auto) 0.2 Lymph # (Auto) 0.79 L [place] # (Auto) 0.6 Eos # (Auto) 0.0 Baso # (Auto) 0.0 Abs Immat Gran (auto) 0.06 H Absolute Neuts (auto) 8.1 H Absolute Nucleated RBC 0.000 Nucleated RBC % 0.0 APTT 33.8 Sodium 142 Potassium 3.3 L Chloride 110 H Carbon Dioxide 28 Anion Gap 4 BUN 11 Creatinine 0.89 Estim Creat Clear Calc 69 Estimated GFR > 60 Glucose 172 H POC Capillary Glucose 138 H 188 H Calcium 7.9 L Phosphorus 3.3 Magnesium Transferrin Total Bilirubin 0.6 AST 20 ALT 17 Alkaline Phosphatase 41 Total Protein 6.0 L Albumin 2.6 L
[2024-07-03 11:44] LABS: Glucose Point of Care 144 mg/dl (65-105)
[2024-07-03 14:00] VITALS: BP 127/84; PULSE 124; RESP 16; TEMP 36.1; O2SAT 97
[2024-07-03] MEDS: AMINO ACIDS 5%/D15W/E-LYTES/CA 1,000 ML with MULTIVITAMINS-12 INJ VIAL 1 1.25 ML, MULTI... 40 ML IV CONT (14:01)
[2024-07-03] MEDS: FAT EMULSIONS IV 20% 250 ML 20.83 ML IVPB (14:03)
--- NOTE | 2024-07-03 14:48 | P.PNIM_ITS ---
Progress Note: A&P Assessment and Plan (1) Small bowel obstruction: Code(s): K56.609 - Unspecified intestinal obstruction, unspecified as to partial versus complete obstruction Status: Acute Assessment and Plan: Patient admitted after complaints of ABD pain with N/V. CT chest abdomen pelvis CTA was performed which showed no PE no aortic dissection. Abdomen pelvis showed small-bowel obstruction with the transition zone in the terminal ileum area. No evidence of appendicitis or diverticulitis. General surgery was consulted and patient was taken for exploratory laparotomy 06/29/2024 for repair serosal tears x2. IV fluids switched to Dextrose 5/water NA up to 149 and BS 68. Patient had pulled out his NG tube which was replaced under fluoroscopy, mild distention noted reporting having flatulence but no BM post op day 4. Patient post-op day 4 KUB with A continued postoperative ileus will need to continue NPO and NG tube. Tolerating TPN and NA WNL now. * NPO with Ice chips * NG tube to suction continued for decompression * pain control * ambulate as tolerated * Antiemetics * Will advance diet per surgery once bowel function has returned * Incentive spirometer (2) Chronic alcohol use: Code(s): F10.90 - Alcohol use, unspecified, uncomplicated Status: Chronic Assessment and Plan: Does not appear in withdrawal at this time will continue to monitor * Last drink 06/23 * Thiamine, folic acid, and multi-vitamin * PPI daily * librium PRN * CIWA daily * Monitor and replenish electrolytes as needed (3) Hypertension: Code(s): I10 - Essential (primary) hypertension Status: Acute Assessment and Plan: patient has been hypertensive systolics running between 180s to 160s. patient does not take any hypertensive medications at home will re-evaluate prior to discharge if patient will need oral antihypertensive medications at discharge after current acute issues are resolved. * I added hydralazine 20 mg IV push as needed for systolics greater than 160 * episodes of tachycardia surgery added metoprolol IV push PRN * BP per unit protocol (4) ORTEGA (acute kidney injury): Code(s): N17.9 - Acute kidney failure, unspecified Status: Resolved Assessment and Plan: * Acute kidney injury CR 1.98 POA since resolved with IV fluids (5) Hypernatremia: Code(s): E87.0 - Hyperosmolality and hypernatremia Status: Resolved Assessment and Plan: * Patient now with hypernatremia at 149 discussed with surgery we will switch his IV fluids to dextrose 5 and water follow-up BMP later on today (6) Hyponatremia: Code(s): E87.1 - Hypo-osmolality and hyponatremia Status: Resolved Assessment and Plan: * Resolved likely secondary to dehydration and ETOH abuse patient was initially 130 POA resolved with IV fluids Plan Code status: Full code per patient DVT prophylaxis: Lovenox Stress ulcer prophylaxis: Protonix 40 daily PT/OT notes: Ambulatory Disposition: Patient continues admission to the medical unit for further treatment small-bowel obstruction postop day 4 with NG tube for decompression will slowly advanced diet as tolerated once bowel function has returned. Patient plans to discharge back to home when medically stable. Remains NPO at this time Time Spent With Patient Time with patient: 15 - 25 minutes Subjective Date/time seen: 07/03/24 14:48 Interval history: This is a 64-year-old male who presented to the ED with few days history of nausea vomiting and abdominal pain. He also reports not having bowel movement for past few days. Was found to has small-bowel obstruction underwent exploratory laparotomy in it colitis with repair of serosal tears 06/30/2024. 07/03/2024: Patient up in chair, mild ABD pain reports to me gas and he thinks he had a small BM however I do not see any documented in chart. Still with moderate amount of drainage from NG tube. No other complaints just wants a soda. Review of Systems Review of Systems: All systems reviewed & are unremarkable except as noted in HPI and below Exam Const: General: comfortable and no acute distress HENMT: Mouth: Yes moist mucous membranes Eyes: General: appearance normal, both eyes and all related structures Pupils: Equal, round and reactive pupils present Neck: Neck: supple and no JVD Resp: Effort & Inspection: normal respiratory effort Auscultation: clear to auscultation bilaterally Cardio: Rate: regular rate Rhythm: regular rhythm GI: Auscultation: abnormal bowel sounds (hypoactive) Skin: General skin exam: normal color Neuro: General: gait normal Cranial nerves: Yes Equal, round and reactive pupils present Speech: normal speech Extrem: General: normal to inspection Psych: Mental Status: mental status grossly normal Affect: normal affect Objective Data Vital Signs Vital Signs: Vital Signs - 24 hr 07/02/24 20:00 07/02/24 21:00 07/03/24 05:00 Temperature 96.8 F L 98 F Pulse Rate 106 H 104 H Respiratory Rate 18 18 Blood Pressure 166/96 H 156/90 H Pulse Oximetry 95 98 Oxygen Delivery Room Air 07/03/24 08:00 07/03/24 09:53 07/03/24 14:00 Temperature 96.9 F L Pulse Rate 124 H Respiratory Rate 16 Blood Pressure 127/84 Pulse Oximetry 95 97 Oxygen Delivery Room Air Room Air Intake/Output Intake/Output: Intake & Output 06/30/24 07/01/24 07/02/24 07/03/24 23:59 23:59 23:59 23:59 Intake Total 2801.7 2798.3 1780 1428.7 Output Total 2700 2675 2350 1775 Balance 101.7 123.3 -570 -346.3 Meds/Results Medications: Active Medications Generic Name Dose Route Start Last Admin Trade Name Freq PRN Reason Stop Dose Admin Acetaminophen 650 mg 06/27/24 08:21 Acetaminophen 325 Mg Tablet PO Q4H PRN Mild Pain (1-3) or Fever Al Hydrox/Mg Hydrox/Simethicone 30 ml 06/29/24 16:38 07/03/24 13:06 Mag Hydrox/Al Hydrox/Simeth 30 Ml Udc PO 30 ml Q8HR VANDANA Administration Chlordiazepoxide HCl 25 mg 06/27/24 07:40 Chlordiazepoxide (*Crx) 25 Mg Capsule PO Q6H PRN Withdrawal Dextrose 12.5 gm 07/02/24 13:59 Dextrose 50% 25 Gm/50 Ml Syringe IV PUSH PRN PRN Hypoglycemia Protocol Enoxaparin Sodium 40 mg 06/29/24 09:00 07/03/24 08:23 Enoxaparin 40 Mg/0.4 Ml Syringe SUB-Q 40 mg DAILY VANDANA Administration Glucagon 1 mg 07/02/24 13:59 Glucagon For Inj 1 Mg Vial IM PRN PRN Hypoglycemia Protocol Glucose 15 gm 07/02/24 13:59 Glucose Oral Gel 15 Gm Of Glucse In 37.5 Gm Tube PO PRN PRN Hypoglycemia Protocol Hydralazine HCl 20 mg 07/02/24 10:27 Hydralazine Hcl 20 Mg/Ml Vial IV PUSH Q6H PRN Hypertension Hydromorphone HCl 1 mg 06/29/24 15:34 07/01/24 00:45 Hydromorphone Hcl Inj (*Crx) 1 Mg/Ml Syr IV PUSH 1 mg Q3H PRN Administration Pain Rated 7-10 Piperacillin/Tazobactam/Dextrose 3.375 gm in 50 mls @ 100 mls/hr 06/27/24 18:00 07/03/24 14:03 Zosyn 3.375 Gm/Ns 50 Ml IVPB 07/03/24 23:59 100 mls/hr Q6H VANDANA Administration Ibuprofen 800 mg in 200 mls @ 400 mls/hr 06/29/24 17:00 07/03/24 08:21 Caldolor 800 Mg/200 Ml IVPB 400 mls/hr Q8H VANDANA Administration Dextrose 1,000 mls @ 50 mls/hr 07/02/24 13:56 Dextrose 10% IV CONT .Q20H PRN if PN is interrupted Multivitamins 1.25 ml/ 1,002.5 mls @ 60 mls/hr 07/02/24 15:00 07/03/24 14:01 Multivitamins 1.25 ml/ Amino IV CONT 40 mls/hr Acids/Electrolytes/Dextrose .[id number] VANDANA Administration Protocol Dextrose 1,000 mls @ 100 mls/hr 07/02/24 13:59 Dextrose 5% 1,000 Ml IVPB PRN PRN Hypoglycemia Protocol Fat Emulsion Intravenous 250 mls @ 20.833 mls/hr 07/02/24 15:00 07/03/24 14: 03 Lipids 20% IVPB 20.83 mls/hr Q24H VANDANA Administration Potassium Chloride/Dextrose/Sod Cl 1,000 mls @ 80 mls/hr 07/03/24 07:55 07/03/24 08:19 Kcl 40 Meq/D5ns IV CONT 80 mls/hr .[id number] VNADANA Administration Insulin Human Regular 0 units 07/02/24 18:00 07/03/24 12:45 Insulin Human Regular (*Bkc) 100 Units/Ml SUB-Q Not Given Q6HR VANDANA Protocol Lidocaine 1 patch 06/30/24 09:00 07/03/24 08:24 Lidocaine 5% Patch TRANSDERM 1 patch DAILY VANDANA Administration Metoclopramide HCl 10 mg 07/02/24 12:00 07/03/24 13:06 Metoclopramide Hcl Inj 10 Mg/2 Ml Vial IV PUSH 10 mg Q6HR VANDANA Administration Metoprolol Tartrate 5 mg 07/02/24 08:51 Metoprolol Tartrate Inj 5 Mg/5 Ml Vial IV PUSH Q4H PRN Hypertension Ondansetron HCl 4 mg 06/27/24 08:21 07/01/24 06:03 Ondansetron Inj 4 Mg/2 Ml Vial IV PUSH 4 mg Q4H PRN Administration Nausea Pantoprazole Sodium 40 mg 06/28/24 09:00 07/03/24 08:24 Pantoprazole Sodium Iv 40 Mg Vial IV PUSH 40 mg QAM VANDANA Administration Sodium Chloride 10 ml 07/02/24 22:00 07/03/24 13:06 Central Line Flush IV PUSH 10 ml Q8HR VANDANA Administration Sodium Chloride 10 ml 07/02/24 15:38 Central Line Flush IV PUSH PRN PRN with TPN bag changes Sodium Chloride 20 ml 07/02/24 15:38 Central Line Flush IV PUSH PRN PRN after blood draws Thiamine HCl 100 mg 06/27/24 09:00 07/03/24 08:24 Thiamine Hcl 200 Mg/2 Ml Vial IV PUSH 100 mg DAILY VANDANA Administration Radiology Results: ITS Impressions Chest/Abdomen/Pelvis CTA 06/27/24 06:17 IMPRESSION: CHEST: 1. No pulmonary embolism. No aortic dissection 2. No acute cardiopulmonary pathology. ABDOMEN/PELVIS: 1. Small bowel obstruction with the transition zone in the terminal ileum area. Clinical correlation advised. 2. No evidence of appendicitis, or diverticulitis. Head CT 06/27/24 06:59 IMPRESSION: No acute intracranial findings. Cervical Spine CT 06/27/24 07:58 IMPRESSION: No acute osseous abnormality cervical spine. Multilevel degenerative disc disease. Small Bowel X-Ray 06/28/24 23:13 IMPRESSION: High-grade small bowel obstruction, as detailed above. NG Tube Placement 07/02/24 07:18 IMPRESSION: Fluoroscopy used during NG tube placement in the stomach. Chest X-Ray 07/02/24 15:30 IMPRESSION: 1. Right PICC line tip at the caudal superior vena cava. 2. Unchanged mild streaky bibasilar atelectasis and discoid atelectasis at the superior segment of the right lower lobe. Labs Labs: Laboratory Results - last 24 hr 07/02/24 07/02/24 07/03/24 06:09 18:12 00:10 WBC RBC Hgb Hct MCV MCH MCHC RDW Plt Count MPV Immature Gran % (Auto) Neut % (Auto) Lymph % (Auto) [place] % (Auto) Eos % (Auto) Baso % (Auto) Lymph # (Auto) [place] # (Auto) Eos # (Auto) Baso # (Auto) Abs Immat Gran (auto) Absolute Neuts (auto) Absolute Nucleated RBC Nucleated RBC % APTT Sodium Potassium Chloride Carbon Dioxide Anion Gap BUN Creatinine Estim Creat Clear Calc Estimated GFR Glucose POC Capillary Glucose 109 H 138 H Calcium Phosphorus Magnesium 2.3 Transferrin 97 L Total Bilirubin AST ALT Alkaline Phosphatase Total Protein Albumin 07/03/24 07/03/24 07/03/24 05:54 06:01 11:39 WBC 9.6 RBC 4.20 L Hgb 13.4 L Hct 40.6 L MCV 96.7 D MCH 31.9 MCHC 33.0 RDW 13.4 Plt Count 220 MPV 9.9 Immature Gran % (Auto) 0.6 H Neut % (Auto) 84.1 H Lymph % (Auto) 8.[address] [place] % (Auto) 6.5 Eos % (Auto) 0.4 Baso % (Auto) 0.2 Lymph # (Auto) 0.[address] [place] # (Auto) 0.6 Eos # (Auto) 0.0 Baso # (Auto) 0.0 Abs Immat Gran (auto) 0.06 H Absolute Neuts (auto) 8.1 H Absolute Nucleated RBC 0.000 Nucleated RBC % 0.0 APTT 33.8 Sodium 142 Potassium 3.3 L Chloride 110 H Carbon Dioxide 28 Anion Gap 4 BUN 11 Creatinine 0.89 Estim Creat Clear Calc 69 Estimated GFR > 60 Glucose 172 H POC Capillary Glucose 188 H 144 H Calcium 7.9 L Phosphorus 3.3 Magnesium Transferrin Total Bilirubin 0.6 AST 20 ALT 17 Alkaline Phosphatase 41 Total Protein 6.0 L Albumin 2.6 L Quality VTE Prophylaxis VTE prophylaxis: pharmacologic ordered -Patient's previous records reviewed on admission -ER notes reviewed in detail on admission -discussed all findings and current treatment plan with patient/Family/POA -Consultations reviewed for recommendations -Patient's disposition for safe discharge discussed with family service caseworker Dictation performed by [employer] direct speech recognition software, therefore manager risk management variants and typographical errors may occur. Hospitalist [facility] Advance Care Plan I have confirmed that the patient's Advanced Care Plan is present, code status is documented, or surrogate decision maker is listed in patient medical record.: Yes Medication Reconciliation I have utilized all available resources to obtain, update and review the patients current medications (includes all prescriptions, OTC, herbals, cannabis, and nutritional supplements).: Yes The patient is not eligible for med reconciliation; the patient is in a emergent medical situation where delaying treatment would jeopardize the patients health.: No
[2024-07-03 15:09] LABS: Triglycerides 149 mg/dL (<150)
[2024-07-03 18:21] LABS: Glucose Point of Care 185 mg/dl (65-105)
[2024-07-03 20:15] VITALS: BP 119/81; PULSE 129; RESP 20; TEMP 36.3; O2SAT 97
[2024-07-03 21:49] VITALS: PULSE 121
[2024-07-03] MEDS: METOPROLOL TARTRATE INJ 5 MG/5 ML VIAL IV PUSH (21:49)
[2024-07-04] VITALS (11 sets, daily range): BP systolic 114–143; BP diastolic 76–81; PULSE 98–130; RESP 16–20; TEMP 35.7–36.7; O2SAT 96–97
[2024-07-04] MEDS: IBUPROFEN IV 800 MG/200 ML 800 MG/200 ML BAG 250 MG IVPB (00:09)
[2024-07-04] MEDS: KCL 40 MEQ/D5/0.9% SOD CHL 1,000 ML 80 ML IV CONT ×2 (02:24→21:10)
[2024-07-04 02:34] LABS: Glucose Point of Care 151 mg/dl (65-105)
[2024-07-04] MEDS: CENTRAL LINE FLUSH 10 ML IV PUSH ×4 (05:19→21:11)
[2024-07-04] MEDS: MAG HYDROX/AL HYDROX/SIMETH 30 ML UDC PO (05:19)
[2024-07-04] MEDS: METOPROLOL TARTRATE INJ 5 MG/5 ML VIAL IV PUSH (05:19)
[2024-07-04] MEDS: METOCLOPRAMIDE HCL INJ 10 MG/2 ML VIAL IV PUSH (05:19)
[2024-07-04 05:53] LABS: Basophils Percent Auto 0.4 % (0.2-1.2); Eosinophils Absolute Auto 0.1 K/mm3 (0-0.3); Eosinophils Percent Auto 0.6 % (0-4.4); Hematocrit 37.1 % (42.0-52.0); Hemoglobin 11.9 g/dL (14.0-18.0); Immature Granulocyte Absolute 0.05 K/mm3 (0.00-0.031); Immature Granulocyte Percent A 0.5 % (0-0.5); Lymphocytes Absolute Auto 0.68 K/mm3 (0.9-3.2); Lymphocytes Percent Auto 6.6 % (18.3-44.2); Mean Corpuscular HGB Conc 32.1 g/dl (32-36); Mean Corpuscular Hemoglobin 31.6 pg (26-34); Mean Corpuscular Volume 98.7 fl (80-100); Mean Platelet Volume 10.4 fl (7.4-10.4); Monocytes Absolute Auto 0.6 K/mm3 (0.1-0.6); Monocytes Percent Auto 5.5 % (2.6-8.5); Neutrophils Absolute Auto 8.9 K/mm3 (1.3-6.7); Neutrophils Percent Auto 86.4 % (45.5-73.1); Platelet Count Result 207 k/mm3 (150-375); Red Blood Count 3.76 M/mm3 (4.6-6.20); Red Cell Distribution Width 13.6 % (11.5-14.5); White Blood Count 10.3 K/mm3 (4.5-10.0)
[2024-07-04 06:07] LABS: Anion Gap 7 mmol/L (4-12); Blood Urea Nitrogen 18 mg/dL (9-20); Calcium 7.8 mg/dL (8.4-10.2); Carbon Dioxide 23 mmol/L (22-30); Chloride 112 mmol/L (98-107); Estimated CRCL calculation 58 ml/min; Estimated Glomerular Filt Rate > 60; Glucose 118 mg/dL (65-110); Phosphorus 3.6 mg/dL (2.5-4.5); Potassium 3.4 mmol/L (3.4-5.0); Sodium 142 mmol/L (137-145)
[2024-07-04 06:21] LABS: CRP 25.5 mg/dL (<1.0)
[2024-07-04] MEDS: THIAMINE HCL 200 MG/2 ML VIAL 100 MG IV PUSH (09:23)
[2024-07-04] MEDS: IBUPROFEN IV 800 MG/200 ML 800 MG/200 ML BAG 400 MG IVPB ×2 (09:24→16:50)
[2024-07-04] MEDS: PANTOPRAZOLE SODIUM IV 40 MG VIAL IV PUSH (09:24)
[2024-07-04] MEDS: ENOXAPARIN 40 MG/0.4 ML SYRINGE SUB-Q (09:24)
[2024-07-04] MEDS: LIDOCAINE 5% PATCH 1 PATCH TRANSDERM (09:25)
[2024-07-04] MEDS: HYDROmorphone HCL INJ (*CRX) 1 MG/ML SYR IV PUSH (09:33)
[2024-07-04] MEDS: POTASSIUM CHLORIDE INJ 40 MEQ in SODIUM CHLORIDE 0.9% IV 500 ML 130 MEQ IVPB (10:31)
[2024-07-04 11:30] LABS: Glucose Point of Care 150 mg/dl (65-105)
--- NOTE | 2024-07-04 12:10 | P.PNIM_ITS ---
Progress Note: A&P Assessment and Plan (1) Small bowel obstruction: Code(s): K56.609 - Unspecified intestinal obstruction, unspecified as to partial versus complete obstruction Status: Acute Assessment and Plan: Patient admitted after complaints of ABD pain with N/V. CT chest abdomen pelvis CTA was performed which showed no PE no aortic dissection. Abdomen pelvis showed small-bowel obstruction with the transition zone in the terminal ileum area. No evidence of appendicitis or diverticulitis. General surgery was consulted and patient was taken for exploratory laparotomy 06/29/2024 for repair serosal tears x2. IV fluids switched to Dextrose 5/water NA up to 149 and BS 68. Patient had pulled out his NG tube which was replaced under fluoroscopy, mild distention noted reporting having flatulence and bowel movement reported overnight. Patient post-op day 5 KUB with A continued postoperative ileus ( obstructions) will need to continue NPO and NG tube until surgery recommends clear liquids. Tolerating TPN and NA WNL now. continue to encourage patient to get up and perform activity. still with mild tachycardia but BP improving * NPO with Ice chips * NG tube to suction continued for decompression * pain control * ambulate as tolerated * Antiemetics * Will advance diet per surgery once bowel function has returned * Incentive spirometer (2) Chronic alcohol use: Code(s): F10.90 - Alcohol use, unspecified, uncomplicated Status: Chronic Assessment and Plan: Does not appear in withdrawal at this time will continue to monitor * Last drink 06/23 * Thiamine, folic acid, and multi-vitamin * PPI daily * librium PRN * CIWA daily * Monitor and replenish electrolytes as needed (3) Hypertension: Code(s): I10 - Essential (primary) hypertension Status: Acute Assessment and Plan: patient has been hypertensive systolics running between 180s to 160s. patient does not take any hypertensive medications at home will re-evaluate prior to discharge if patient will need oral antihypertensive medications at discharge after current acute issues are resolved. * I added hydralazine 20 mg IV push as needed for systolics greater than 160 * episodes of tachycardia surgery added metoprolol IV push PRN * BP per unit protocol (4) ORTEGA (acute kidney injury): Code(s): N17.9 - Acute kidney failure, unspecified Status: Resolved Assessment and Plan: * Acute kidney injury CR 1.98 POA since resolved with IV fluids (5) Hypernatremia: Code(s): E87.0 - Hyperosmolality and hypernatremia Status: Resolved Assessment and Plan: * Patient now with hypernatremia at 149 discussed with surgery we will switch his IV fluids to dextrose 5 and water follow-up BMP later on today (6) Hyponatremia: Code(s): E87.1 - Hypo-osmolality and hyponatremia Status: Resolved Assessment and Plan: * Resolved likely secondary to dehydration and ETOH abuse patient was initially 130 POA resolved with IV fluids Plan Code status: Full code per patient DVT prophylaxis: Lovenox Stress ulcer prophylaxis: Protonix 40 daily PT/OT notes: Ambulatory Disposition: Patient continues admission to the medical unit for further treatment small-bowel obstruction postop day 4 with NG tube for decompression will slowly advanced diet as tolerated once bowel function has returned. Patient plans to discharge back to home when medically stable. Remains NPO at this time Time Spent With Patient Time with patient: 15 - 25 minutes Subjective Date/time seen: 07/04/24 12:10 Interval history: This is a 64-year-old male who presented to the ED with few days history of nausea vomiting and abdominal pain. He also reports not having bowel movement for past few days. Was found to has small-bowel obstruction underwent exploratory laparotomy in it colitis with repair of serosal tears 06/30/2024. 07/04/2024: patient was mild distention and mild abdominal pain still with moderate amount of drainage from NG tube. Patient did report gas and nursing reported bowel movement overnight bowel sounds present but KUB still showing obstruction. Review of Systems Review of Systems: All systems reviewed & are unremarkable except as noted in HPI and below Exam Const: General: comfortable and no acute distress HENMT: Mouth: Yes moist mucous membranes Eyes: General: appearance normal, both eyes and all related structures Pupils: Equal, round and reactive pupils present Neck: Neck: supple and no JVD Resp: Effort & Inspection: normal respiratory effort Auscultation: clear to auscultation bilaterally Cardio: Rate: regular rate Rhythm: regular rhythm GI: Auscultation: abnormal bowel sounds (hypoactive) Skin: General skin exam: normal color Neuro: General: gait normal Cranial nerves: Yes Equal, round and reactive pupils present Speech: normal speech Extrem: General: normal to inspection Psych: Mental Status: mental status grossly normal Affect: normal affect Objective Data Vital Signs Vital Signs: Vital Signs - 24 hr 07/03/24 14:00 07/03/24 20:00 07/03/24 20:15 Temperature 96.9 F L 97.4 F L Pulse Rate 124 H 129 H Respiratory Rate 16 20 Blood Pressure 127/84 119/81 Pulse Oximetry 97 97 Oxygen Delivery Room Air 07/03/24 21:49 07/04/24 00:00 07/04/24 04:00 Temperature Pulse Rate 121 H 98 118 H Respiratory Rate Blood Pressure Pulse Oximetry Oxygen Delivery 07/04/24 05:15 07/04/24 05:19 07/04/24 09:24 Temperature 96.3 F L Pulse Rate 120 H 119 H 109 H Respiratory Rate 20 Blood Pressure 143/76 H Pulse Oximetry 97 Oxygen Delivery Intake/Output Intake/Output: Intake & Output 07/01/24 07/02/24 07/03/24 07/04/24 23:59 23:59 23:59 23:59 Intake Total 2798.3 1780 3247.4 570 Output Total 2675 2350 1775 1350 Balance 123.3 -570 1472.4 -780 Meds/Results Medications: Active Medications Generic Name Dose Route Start Last Admin Trade Name Freq PRN Reason Stop Dose Admin Acetaminophen 650 mg 06/27/24 08:21 Acetaminophen 325 Mg Tablet PO Q4H PRN Mild Pain (1-3) or Fever Chlordiazepoxide HCl 25 mg 06/27/24 07:40 Chlordiazepoxide (*Crx) 25 Mg Capsule PO Q6H PRN Withdrawal Dextrose 12.5 gm 07/02/24 13:59 Dextrose 50% 25 Gm/50 Ml Syringe IV PUSH PRN PRN Hypoglycemia Protocol Enoxaparin Sodium 40 mg 06/29/24 09:00 07/04/24 09:24 Enoxaparin 40 Mg/0.4 Ml Syringe SUB-Q 40 mg DAILY VANDANA Administration Glucagon 1 mg 07/02/24 13:59 Glucagon For Inj 1 Mg Vial IM PRN PRN Hypoglycemia Protocol Glucose 15 gm 07/02/24 13:59 Glucose Oral Gel 15 Gm Of Glucse In 37.5 Gm Tube PO PRN PRN Hypoglycemia Protocol Hydralazine HCl 20 mg 07/02/24 10:27 Hydralazine Hcl 20 Mg/Ml Vial IV PUSH Q6H PRN Hypertension Hydromorphone HCl 1 mg 06/29/24 15:34 07/04/24 09:33 Hydromorphone Hcl Inj (*Crx) 1 Mg/Ml Syr IV PUSH 1 mg Q3H PRN Administration Pain Rated 7-10 Ibuprofen 800 mg in 200 mls @ 400 mls/hr 06/29/24 17:00 07/04/24 09:24 Caldolor 800 Mg/200 Ml IVPB 400 mls/hr Q8H VANDANA Administration Dextrose 1,000 mls @ 50 mls/hr 07/02/24 13:56 Dextrose 10% IV CONT .Q20H PRN if PN is interrupted Multivitamins 1.25 ml/ 1,002.5 mls @ 70 mls/hr 07/02/24 15:00 07/03/24 21:59 Multivitamins 1.25 ml/ Amino IV CONT 60 mls/hr Acids/Electrolytes/Dextrose .[id number] VANDANA Infusion Protocol Dextrose 1,000 mls @ 100 mls/hr 07/02/24 13:59 Dextrose 5% 1,000 Ml IVPB PRN PRN Hypoglycemia Protocol Fat Emulsion Intravenous 250 mls @ 20.833 mls/hr 07/02/24 15:00 07/04/24 02:04 Lipids 20% IVPB Infused Q24H VANDANA Infusion Potassium Chloride/Dextrose/Sod Cl 1,000 mls @ 80 mls/hr 07/03/24 07:55 07/04/24 02:24 Kcl 40 Meq/D5ns IV CONT 80 mls/hr .[id number] VANDANA Administration Potassium Chloride 40 meq/ 520 mls @ 130 mls/hr 07/04/24 08:47 07/04/24 10:31 Sodium Chloride IVPB 07/04/24 12:46 130 mls/hr ONCE ONE Administration Insulin Human Regular 0 units 07/02/24 18:00 07/04/24 12:03 Insulin Human Regular (*Bkc) 100 Units/Ml SUB-Q Not Given Q6HR VANDANA Protocol Lidocaine 1 patch 06/30/24 09:00 07/04/24 09:25 Lidocaine 5% Patch TRANSDERM 1 patch DAILY VANDANA Administration Metoprolol Tartrate 5 mg 07/02/24 08:51 07/04/24 05:19 Metoprolol Tartrate Inj 5 Mg/5 Ml Vial IV PUSH 5 mg Q4H PRN Administration Hypertension Ondansetron HCl 4 mg 06/27/24 08:21 07/01/24 06:03 Ondansetron Inj 4 Mg/2 Ml Vial IV PUSH 4 mg Q4H PRN Administration Nausea Pantoprazole Sodium 40 mg 06/28/24 09:00 07/04/24 09:24 Pantoprazole Sodium Iv 40 Mg Vial IV PUSH 40 mg QAM VANDANA Administration Sodium Chloride 10 ml 07/02/24 22:00 07/04/24 05:19 Central Line Flush IV PUSH 10 ml Q8HR VANDANA Administration Sodium Chloride 10 ml 07/02/24 15:38 Central Line Flush IV PUSH PRN PRN with TPN bag changes Sodium Chloride 20 ml 07/02/24 15:38 Central Line Flush IV PUSH PRN PRN after blood draws Thiamine HCl 100 mg 06/27/24 09:00 07/04/24 09:23 Thiamine Hcl 200 Mg/2 Ml Vial IV PUSH 100 mg DAILY VANDANA Administration Radiology Results: ITS Impressions Chest/Abdomen/Pelvis CTA 06/27/24 06:17 IMPRESSION: CHEST: 1. No pulmonary embolism. No aortic dissection 2. No acute cardiopulmonary pathology. ABDOMEN/PELVIS: 1. Small bowel obstruction with the transition zone in the terminal ileum area. Clinical correlation advised. 2. No evidence of appendicitis, or diverticulitis. Head CT 06/27/24 06:59 IMPRESSION: No acute intracranial findings. Cervical Spine CT 06/27/24 07:58 IMPRESSION: No acute osseous abnormality cervical spine. Multilevel degenerative disc disease. Small Bowel X-Ray 06/28/24 23:13 IMPRESSION: High-grade small bowel obstruction, as detailed above. NG Tube Placement 07/02/24 07:18 IMPRESSION: Fluoroscopy used during NG tube placement in the stomach. Chest X-Ray 07/02/24 15:30 IMPRESSION: 1. Right PICC line tip at the caudal superior vena cava. 2. Unchanged mild streaky bibasilar atelectasis and discoid atelectasis at the superior segment of the right lower lobe. Abdomen X-Ray 07/04/24 07:37 IMPRESSION: Dilated small bowel loops in the upper and mid abdomen suggestive of obstruction. Follow-up advised. Labs Labs: Laboratory Results - last 24 hr 07/03/24 07/03/24 07/04/24 05:51 18:18 02:32 WBC RBC Hgb Hct MCV MCH MCHC RDW Plt Count MPV Immature Gran % (Auto) Neut % (Auto) Lymph % (Auto) [place] % (Auto) Eos % (Auto) Baso % (Auto) Lymph # (Auto) [place] # (Auto) Eos # (Auto) Baso # (Auto) Abs Immat Gran (auto) Absolute Neuts (auto) Absolute Nucleated RBC Nucleated RBC % Sodium Potassium Chloride Carbon Dioxide Anion Gap BUN Creatinine Estim Creat Clear Calc Estimated GFR Glucose POC Capillary Glucose 185 H 151 H Calcium Phosphorus C-Reactive Protein Triglycerides 149 07/04/24 07/04/24 05:23 11:26 WBC 10.3 H RBC 3.76 L Hgb 11.9 L Hct 37.1 L MCV 98.7 MCH 31.6 MCHC 32.1 RDW 13.6 Plt Count 207 MPV 10.4 Immature Gran % (Auto) 0.5 Neut % (Auto) 86.4 H Lymph % (Auto) 6.6 L [place] % (Auto) 5.5 Eos % (Auto) 0.6 Baso % (Auto) 0.4 Lymph # (Auto) 0.68 L [place] # (Auto) 0.6 Eos # (Auto) 0.1 Baso # (Auto) 0.0 Abs Immat Gran (auto) 0.05 H Absolute Neuts (auto) 8.9 H Absolute Nucleated RBC 0.000 Nucleated RBC % 0.0 Sodium 142 Potassium 3.4 Chloride 112 H Carbon Dioxide 23 Anion Gap 7 BUN 18 Creatinine 1.08 Estim Creat Clear Calc 58 Estimated GFR > 60 Glucose 118 H POC Capillary Glucose 150 H Calcium 7.8 L Phosphorus 3.6 C-Reactive Protein 25.5 H Triglycerides Quality VTE Prophylaxis VTE prophylaxis: pharmacologic ordered -Patient's previous records reviewed on admission -ER notes reviewed in detail on admission -discussed all findings and current treatment plan with patient/Family/POA -Consultations reviewed for recommendations -Patient's disposition for safe discharge discussed with medical case worker Dictation performed by [employer] direct speech recognition software, therefore armature repairer variants and typographical errors may occur. Hospitalist MIPS Advance Care Plan I have confirmed that the patient's Advanced Care Plan is present, code status is documented, or surrogate decision maker is listed in patient medical record.: Yes Medication Reconciliation I have utilized all available resources to obtain, update and review the patients current medications (includes all prescriptions, OTC, herbals, cannabis, and nutritional supplements).: Yes The patient is not eligible for med reconciliation; the patient is in a emergent medical situation where delaying treatment would jeopardize the patients health.: No
[2024-07-04] MEDS: AMINO ACIDS 5%/D15W/E-LYTES/CA 1,000 ML with MULTIVITAMINS-12 INJ VIAL 1 1.25 ML, MULTI... 70 ML IV CONT ×2 (14:05→21:10)
[2024-07-04] MEDS: FAT EMULSIONS IV 20% 250 ML 20.83 ML IVPB (14:07)
--- NOTE | 2024-07-04 16:58 | P.PNGS_ITS ---
Progress Note: A&P Assessment and Plan (1) Small bowel obstruction: Code(s): K56.609 - Unspecified intestinal obstruction, unspecified as to partial versus complete obstruction Status: Acute Assessment and Plan: Postop day 5. Patient continues to have very high NG outputs, especially today with 2200 cc of green bile colored fluid since midnight. He has had a bowel movement and does have bowel sounds. His plain films however are very suggestive of ileus or possibly persistent small bowel obstruction. Continue NPO and TPN, potassium supplement today. Consider small bowel series per NG tube it would 2 days to see if contrast passes and a reasonable transit time. (2) Protein-calorie malnutrition, severe: Code(s): E43 - Unspecified severe protein-calorie malnutrition Status: Acute Assessment and Plan: Continue TPN. Increase rate to 70 an hour. (3) Chronic alcohol use: Code(s): F10.90 - Alcohol use, unspecified, uncomplicated Status: Chronic Assessment and Plan: Patient mental status impaired, says he is groggy, out of it. Has chlordiazepoxide ordered but only on a [place] and dose. He is not taking his hydromorphone for fear of making him very sleepy. Will change to lower dose of fentanyl p.r.n. for pain. Reassess again tomorrow. Subjective Subjective Date/Time Seen: 07/04/24 16:58 Post Op day: 5 Patient reports: still having pain ( reports patient refuses to take hydromorphone because it knocks him out), bowel movement, afebrile and other ( also reports that patient seems to be groggy or sleepy, somewhat over- sedated) Exam Const: General: comfortable, no acute distress, awake, lethargic, tired appearing and thin Orientation/consciousness: lethargic GI: Inspection: abdominal wall ecchymosis, non-distended, incision (Dry and healing well) and scaphoid GI Palp: Yes Soft to palpation, Yes Tenderness to palpation present (GI) (Mild), No Guarding due to palpation present (GI) and No Rebound tenderness present Auscultation: normal bowel sounds Extrem: General: no calf tenderness and no edema Psych: Speech and movement: Slowed movement present (Neuro) Affect: Indifferent affect present Insight: Poor insight present (Psych) Objective Data Vital Signs Vital Signs: Vital Signs - 24 hr 07/03/24 20:00 07/03/24 20:15 07/03/24 21:49 Temperature 36.3 C L Pulse Rate 129 H 121 H Respiratory Rate 20 Blood Pressure 119/81 Pulse Oximetry 97 Oxygen Delivery Room Air 07/04/24 00:00 07/04/24 04:00 07/04/24 05:15 Temperature 35.7 C L Pulse Rate 98 118 H 120 H Respiratory Rate 20 Blood Pressure 143/76 H Pulse Oximetry 97 Oxygen Delivery 07/04/24 05:19 07/04/24 09:24 07/04/24 14:00 Temperature 36.7 C Pulse Rate 119 H 109 H 98 Respiratory Rate 16 Blood Pressure 114/79 Pulse Oximetry 96 Oxygen Delivery Intake/Output Intake/Output: Intake & Output 07/01/24 07/02/24 07/03/24 07/04/24 23:59 23:59 23:59 23:59 Intake Total 2798.3 1780 3247.4 1453.8 Output Total 2675 2350 1775 2500 Balance 123.3 -570 1472.4 -1046.2 Over 2000 cc out nasogastric tube just since midnight. Has had a 1000 cc or more out each day. Meds/Results Medications: Active Medications Generic Name Dose Route Start Last Admin Trade Name Freq PRN Reason Stop Dose Admin Acetaminophen 650 mg 06/27/24 08:21 Acetaminophen 325 Mg Tablet PO Q4H PRN Mild Pain (1-3) or Fever Chlordiazepoxide HCl 25 mg 06/27/24 07:40 Chlordiazepoxide (*Crx) 25 Mg Capsule PO Q6H PRN Withdrawal Dextrose 12.5 gm 07/02/24 13:59 Dextrose 50% 25 Gm/50 Ml Syringe IV PUSH PRN PRN Hypoglycemia Protocol Enoxaparin Sodium 40 mg 06/29/24 09:00 07/04/24 09:24 Enoxaparin 40 Mg/0.4 Ml Syringe SUB-Q 40 mg DAILY VANDANA Administration Fentanyl Citrate 12.5 mcg 07/04/24 16:56 Fentanyl Citrate Inj (*Crx) 100 Mcg/2 Ml Vial IV PUSH Q2H PRN Breakthrough Pain Rated 4-6 or NPO Fentanyl Citrate 25 mcg 07/04/24 16:56 Fentanyl Citrate Inj (*Crx) 100 Mcg/2 Ml Vial IV PUSH Q2H PRN Breakthrough Pain Rated 7-10 or NPO Glucagon 1 mg 07/02/24 13:59 Glucagon For Inj 1 Mg Vial IM PRN PRN Hypoglycemia Protocol Glucose 15 gm 07/02/24 13:59 Glucose Oral Gel 15 Gm Of Glucse In 37.5 Gm Tube PO PRN PRN Hypoglycemia Protocol Hydralazine HCl 20 mg 07/02/24 10:27 Hydralazine Hcl 20 Mg/Ml Vial IV PUSH Q6H PRN Hypertension Hydromorphone HCl 1 mg 06/29/24 15:34 07/04/24 09:33 Hydromorphone Hcl Inj (*Crx) 1 Mg/Ml Syr IV PUSH 1 mg Q3H PRN Administration Pain Rated 7-10 Ibuprofen 800 mg in 200 mls @ 400 mls/hr 06/29/24 17:00 07/04/24 16:50 Caldolor 800 Mg/200 Ml IVPB 400 mls/hr Q8H VANDANA Administration Dextrose 1,000 mls @ 50 mls/hr 07/02/24 13:56 Dextrose 10% IV CONT .Q20H PRN if PN is interrupted Multivitamins 1.25 ml/ 1,002.5 mls @ 70 mls/hr 07/02/24 15:00 07/04/24 14:05 Multivitamins 1.25 ml/ Amino IV CONT 70 mls/hr Acids/Electrolytes/Dextrose .[id number] VANDANA Administration Protocol Dextrose 1,000 mls @ 100 mls/hr 07/02/24 13:59 Dextrose 5% 1,000 Ml IVPB PRN PRN Hypoglycemia Protocol Fat Emulsion Intravenous 250 mls @ 20.833 mls/hr 07/02/24 15:00 07/04/24 14:07 Lipids 20% IVPB 20.83 mls/hr Q24H VANDANA Administration Potassium Chloride/Dextrose/Sod Cl 1,000 mls @ 80 mls/hr 07/03/24 07:55 07/04/24 02:24 Kcl 40 Meq/D5ns IV CONT 80 mls/hr .[id number] VANDANA Administration Insulin Human Regular 0 units 07/02/24 18:00 07/04/24 12:03 Insulin Human Regular (*Bkc) 100 Units/Ml SUB-Q Not Given Q6HR VANDANA Protocol Lidocaine 1 patch 06/30/24 09:00 07/04/24 09:25 Lidocaine 5% Patch TRANSDERM 1 patch DAILY VANDANA Administration Metoprolol Tartrate 5 mg 07/02/24 08:51 07/04/24 05:19 Metoprolol Tartrate Inj 5 Mg/5 Ml Vial IV PUSH 5 mg Q4H PRN Administration Hypertension Ondansetron HCl 4 mg 06/27/24 08:21 07/01/24 06:03 Ondansetron Inj 4 Mg/2 Ml Vial IV PUSH 4 mg Q4H PRN Administration Nausea Pantoprazole Sodium 40 mg 06/28/24 09:00 07/04/24 09:24 Pantoprazole Sodium Iv 40 Mg Vial IV PUSH 40 mg QAM VANDANA Administration Sodium Chloride 10 ml 07/02/24 22:00 07/04/24 14:13 Central Line Flush IV PUSH 10 ml Q8HR VANDANA Administration Sodium Chloride 10 ml 07/02/24 15:38 07/04/24 14:13 Central Line Flush IV PUSH 10 ml PRN PRN Administration with TPN bag changes Sodium Chloride 20 ml 07/02/24 15:38 Central Line Flush IV PUSH PRN PRN after blood draws Thiamine HCl 100 mg 06/27/24 09:00 07/04/24 09:23 Thiamine Hcl 200 Mg/2 Ml Vial IV PUSH 100 mg DAILY VANDANA Administration Radiology Results: ITS Impressions Chest/Abdomen/Pelvis CTA 06/27/24 06:17 IMPRESSION: CHEST: 1. No pulmonary embolism. No aortic dissection 2. No acute cardiopulmonary pathology. ABDOMEN/PELVIS: 1. Small bowel obstruction with the transition zone in the terminal ileum area. Clinical correlation advised. 2. No evidence of appendicitis, or diverticulitis. Head CT 06/27/24 06:59 IMPRESSION: No acute intracranial findings. Cervical Spine CT 06/27/24 07:58 IMPRESSION: No acute osseous abnormality cervical spine. Multilevel degenerative disc disease. Small Bowel X-Ray 06/28/24 23:13 IMPRESSION: High-grade small bowel obstruction, as detailed above. NG Tube Placement 07/02/24 07:18 IMPRESSION: Fluoroscopy used during NG tube placement in the stomach. Chest X-Ray 07/02/24 15:30 IMPRESSION: 1. Right PICC line tip at the caudal superior vena cava. 2. Unchanged mild streaky bibasilar atelectasis and discoid atelectasis at the superior segment of the right lower lobe. Abdomen X-Ray 07/04/24 07:37 IMPRESSION: Dilated small bowel loops in the upper and mid abdomen suggestive of obstruction. Follow-up advised. Nasogastric tube is in the stomach Labs Labs: Laboratory Results - last 24 hr 07/03/24 07/04/24 07/04/24 18:18 02:32 05:23 WBC 10.3 H RBC 3.76 L Hgb 11.9 L Hct 37.1 L MCV 98.7 MCH 31.6 MCHC 32.1 RDW 13.6 Plt Count 207 MPV 10.4 Immature Gran % (Auto) 0.5 Neut % (Auto) 86.4 H Lymph % (Auto) 6.6 L [place] % (Auto) 5.5 Eos % (Auto) 0.6 Baso % (Auto) 0.4 Lymph # (Auto) 0.68 L [place] # (Auto) 0.6 Eos # (Auto) 0.1 Baso # (Auto) 0.0 Abs Immat Gran (auto) 0.05 H Absolute Neuts (auto) 8.9 H Absolute Nucleated RBC 0.000 Nucleated RBC % 0.0 Sodium 142 Potassium 3.4 Chloride 112 H Carbon Dioxide 23 Anion Gap 7 BUN 18 Creatinine 1.08 Estim Creat Clear Calc 58 Estimated GFR > 60 Glucose 118 H POC Capillary Glucose 185 H 151 H Calcium 7.8 L Phosphorus 3.6 C-Reactive Protein 25.5 H 07/04/24 11:26 WBC RBC Hgb Hct MCV MCH MCHC RDW Plt Count MPV Immature Gran % (Auto) Neut % (Auto) Lymph % (Auto) [place] % (Auto) Eos % (Auto) Baso % (Auto) Lymph # (Auto) [place] # (Auto) Eos # (Auto) Baso # (Auto) Abs Immat Gran (auto) Absolute Neuts (auto) Absolute Nucleated RBC Nucleated RBC % Sodium Potassium Chloride Carbon Dioxide Anion Gap BUN Creatinine Estim Creat Clear Calc Estimated GFR Glucose POC Capillary Glucose 150 H Calcium Phosphorus C-Reactive Protein Imaging Attestation: I personally reviewed and interpreted this imaging study as follows: (Plain abdominal films) My impression: Dilated small bowel with air in the colon consistent with ileus, nasogastric tube in the stomach Radiologist's impression: Concerning for small bowel obstruction
[2024-07-04 23:44] LABS: Glucose Point of Care 156 mg/dl (65-105)
[2024-07-05] VITALS (7 sets, daily range): BP systolic 138–146; BP diastolic 71–85; PULSE 74–136; RESP 16–18; TEMP 36.2–36.8; O2SAT 95
[2024-07-05] MEDS: IBUPROFEN IV 800 MG/200 ML 800 MG/200 ML BAG 400 MG IVPB ×3 (03:20→17:35)
[2024-07-05 05:45] LABS: Basophils Percent Auto 0.2 % (0.2-1.2); Eosinophils Absolute Auto 0.1 K/mm3 (0-0.3); Eosinophils Percent Auto 1.3 % (0-4.4); Hematocrit 33.5 % (42.0-52.0); Hemoglobin 10.5 g/dL (14.0-18.0); Immature Granulocyte Absolute 0.08 K/mm3 (0.00-0.031); Immature Granulocyte Percent A 0.9 % (0-0.5); Lymphocytes Absolute Auto 0.79 K/mm3 (0.9-3.2); Lymphocytes Percent Auto 8.5 % (18.3-44.2); Mean Corpuscular HGB Conc 31.3 g/dl (32-36); Mean Corpuscular Hemoglobin 31.3 pg (26-34); Mean Platelet Volume 10.9 fl (7.4-10.4); Monocytes Absolute Auto 0.7 K/mm3 (0.1-0.6); Monocytes Percent Auto 7.1 % (2.6-8.5); Neutrophils Absolute Auto 7.6 K/mm3 (1.3-6.7); Platelet Count Result 202 k/mm3 (150-375); Red Blood Count 3.35 M/mm3 (4.6-6.20); Red Cell Distribution Width 13.9 % (11.5-14.5); White Blood Count 9.2 K/mm3 (4.5-10.0)
[2024-07-05 05:56] LABS: Alanine Aminotransferase 13 U/L (6-50); Albumin Level 2.3 g/dL (3.5-5.1); Alkaline Phosphatase 41 U/L (38-126); Anion Gap 5 mmol/L (4-12); Aspartate Amino Transferase 18 U/L (17-59); Bilirubin,Total 0.4 mg/dL (0.2-1.3); Blood Urea Nitrogen 21 mg/dL (9-20); Calcium 7.9 mg/dL (8.4-10.2); Carbon Dioxide 23 mmol/L (22-30); Chloride 115 mmol/L (98-107); Estimated CRCL calculation 61 ml/min; Estimated Glomerular Filt Rate > 60; Glucose 149 mg/dL (65-110); Magnesium 2.3 mg/dL (1.6-2.3); Phosphorus 3.1 mg/dL (2.5-4.5); Potassium 3.9 mmol/L (3.4-5.0); Sodium 143 mmol/L (137-145)
[2024-07-05 06:06] LABS: INR 1.1; Prothrombin Time 14.4 Seconds (11.1-14.7)
[2024-07-05 06:08] LABS: Partial Thromboplastin Time 33.3 Seconds (22.3-36.8)
[2024-07-05 06:35] LABS: Transferrin < 80 mg/dL (206-381)
[2024-07-05] MEDS: PANTOPRAZOLE SODIUM IV 40 MG VIAL IV PUSH (08:02)
[2024-07-05] MEDS: ENOXAPARIN 40 MG/0.4 ML SYRINGE SUB-Q (08:02)
[2024-07-05] MEDS: LIDOCAINE 5% PATCH 1 PATCH TRANSDERM (08:02)
[2024-07-05] MEDS: THIAMINE HCL 200 MG/2 ML VIAL 100 MG IV PUSH (08:02)
--- NOTE | 2024-07-05 09:14 | P.PNIM_ITS ---
Progress Note: A&P Assessment and Plan (1) Small bowel obstruction: Code(s): K56.609 - Unspecified intestinal obstruction, unspecified as to partial versus complete obstruction Status: Acute Assessment and Plan: Patient admitted after complaints of ABD pain with N/V. CT chest abdomen pelvis CTA was performed which showed no PE no aortic dissection. Abdomen pelvis showed small-bowel obstruction with the transition zone in the terminal ileum area. No evidence of appendicitis or diverticulitis. General surgery was consulted and patient was taken for exploratory laparotomy 06/29/2024 for repair serosal tears x2. IV fluids switched to Dextrose 5/water NA up to 149 and BS 68. Patient had pulled out his NG tube which was replaced under fluoroscopy, mild distention noted reporting having flatulence and bowel movement reported overnight. Patient post-op day 6 KUB with A continued postoperative ileus ( obstructions) will need to continue NPO and NG tube. Vitals improving including HR and BP, Tolerating TPN . Continue to encourage patient to get up and perform activity. reported he appeared more lethargic yesterday afternoon pain medication adjusted by surgery. small bowel series pending. Output from NG tube has slowed but still with green bile. * NPO with Ice chips * NG tube to suction continued for decompression * pain control * ambulate as tolerated * Antiemetics * Will advance diet per surgery once bowel function has returned * Incentive spirometer (2) Chronic alcohol use: Code(s): F10.90 - Alcohol use, unspecified, uncomplicated Status: Chronic Assessment and Plan: Does not appear in withdrawal at this time will continue to monitor * Last drink / * Thiamine, folic acid, and multi-vitamin * PPI daily * librium PRN * CIWA daily * Monitor and replenish electrolytes as needed (3) Hypertension: Code(s): I10 - Essential (primary) hypertension Status: Acute Assessment and Plan: patient has been hypertensive systolics running between 180s to 160s. patient does not take any hypertensive medications at home will re-evaluate prior to discharge if patient will need oral antihypertensive medications at discharge after current acute issues are resolved. * I added hydralazine 20 mg IV push as needed for systolics greater than 160 * episodes of tachycardia surgery added metoprolol IV push PRN * BP per unit protocol (4) ORTEGA (acute kidney injury): Code(s): N17.9 - Acute kidney failure, unspecified Status: Resolved Assessment and Plan: * Acute kidney injury CR 1.98 POA since resolved with IV fluids (5) Hypernatremia: Code(s): E87.0 - Hyperosmolality and hypernatremia Status: Resolved Assessment and Plan: * Patient now with hypernatremia at 149 discussed with surgery we will switch his IV fluids to dextrose 5 and water follow-up BMP later on today (6) Hyponatremia: Code(s): E87.1 - Hypo-osmolality and hyponatremia Status: Resolved Assessment and Plan: * Resolved likely secondary to dehydration and ETOH abuse patient was initially 130 POA resolved with IV fluids Plan Code status: Full code per patient DVT prophylaxis: Lovenox Stress ulcer prophylaxis: Protonix 40 daily PT/OT notes: Ambulatory Disposition: Patient continues admission to the medical unit for further treatment small-bowel obstruction postop day 4 with NG tube for decompression will slowly advanced diet as tolerated once bowel function has returned. Patient plans to discharge back to home when medically stable. Remains NPO at this time, SBS pending Time Spent With Patient Time with patient: 15 - 25 minutes Subjective Date/time seen: 07/05/24 09:14 Interval history: This is a 64-year-old male who presented to the ED with few days history of nausea vomiting and abdominal pain. He also reports not having bowel movement for past few days. Was found to has small-bowel obstruction underwent exploratory laparotomy in it colitis with repair of serosal tears 06/30/2024. 07/05/2024: KUB still showing SBO, but did have BM and is passing gas. Patient still lethargic and weak. Bile from NG has slowed a bit. Small bowel series pending. Review of Systems Review of Systems: All systems reviewed & are unremarkable except as noted in HPI and below Exam Const: General: comfortable and no acute distress HENMT: Mouth: Yes moist mucous membranes Eyes: General: appearance normal, both eyes and all related structures Pupils: Equal, round and reactive pupils present Neck: Neck: supple and no JVD Resp: Effort & Inspection: normal respiratory effort Auscultation: clear to auscultation bilaterally Cardio: Rate: regular rate Rhythm: regular rhythm GI: Auscultation: abnormal bowel sounds (hypoactive) Skin: General skin exam: normal color Neuro: General: gait normal Cranial nerves: Yes Equal, round and reactive pupils present Speech: normal speech Extrem: General: normal to inspection Psych: Mental Status: mental status grossly normal Affect: normal affect Objective Data Vital Signs Vital Signs: Vital Signs - 24 hr 07/04/24 09:24 07/04/24 12:00 07/04/24 14:00 Temperature 98.1 F Pulse Rate 109 H 104 H 98 Respiratory Rate 16 Blood Pressure 114/79 Pulse Oximetry 96 07/04/24 16:00 07/04/24 20:00 07/04/24 21:26 Temperature 98.0 F Pulse Rate 130 H 111 H 112 H Respiratory Rate 18 Blood Pressure 135/81 Pulse Oximetry 96 07/04/24 23:55 07/05/24 03:57 07/05/24 05:58 Temperature 98.2 F Pulse Rate 111 H 115 H 74 Respiratory Rate 18 Blood Pressure 145/71 H Pulse Oximetry 95 Intake/Output Intake/Output: Intake & Output 07/02/24 07/03/24 07/04/24 07/05/24 23:59 23:59 23:59 23:59 Intake Total 1780 3247.4 3149.6 300 Output Total 2350 1775 3000 750 Balance -570 1472.4 149.6 -450 Meds/Results Medications: Active Medications Generic Name Dose Route Start Last Admin Trade Name Freq PRN Reason Stop Dose Admin Acetaminophen 650 mg 06/27/24 08:21 Acetaminophen 325 Mg Tablet PO Q4H PRN Mild Pain (1-3) or Fever Chlordiazepoxide HCl 25 mg 06/27/24 07:40 Chlordiazepoxide (*Crx) 25 Mg Capsule PO Q6H PRN Withdrawal Dextrose 12.5 gm 07/02/24 13:59 Dextrose 50% 25 Gm/50 Ml Syringe IV PUSH PRN PRN Hypoglycemia Protocol Enoxaparin Sodium 40 mg 06/29/24 09:00 07/05/24 08:02 Enoxaparin 40 Mg/0.4 Ml Syringe SUB-Q 40 mg DAILY VANDANA Administration Fentanyl Citrate 12.5 mcg 07/04/24 16:56 Fentanyl Citrate Inj (*Crx) 100 Mcg/2 Ml Vial IV PUSH Q2H PRN Breakthrough Pain Rated 4-6 or NPO Fentanyl Citrate 25 mcg 07/04/24 16:56 Fentanyl Citrate Inj (*Crx) 100 Mcg/2 Ml Vial IV PUSH Q2H PRN Breakthrough Pain Rated 7-10 or NPO Glucagon 1 mg 07/02/24 13:59 Glucagon For Inj 1 Mg Vial IM PRN PRN Hypoglycemia Protocol Glucose 15 gm 07/02/24 13:59 Glucose Oral Gel 15 Gm Of Glucse In 37.5 Gm Tube PO PRN PRN Hypoglycemia Protocol Hydralazine HCl 20 mg 07/02/24 10:27 Hydralazine Hcl 20 Mg/Ml Vial IV PUSH Q6H PRN Hypertension Hydromorphone HCl 1 mg 06/29/24 15:34 07/04/24 09:33 Hydromorphone Hcl Inj (*Crx) 1 Mg/Ml Syr IV PUSH 1 mg Q3H PRN Administration Pain Rated 7-10 Ibuprofen 800 mg in 200 mls @ 400 mls/hr 06/29/24 17:00 07/05/24 08:03 Caldolor 800 Mg/200 Ml IVPB 400 mls/hr Q8H VANDANA Administration Dextrose 1,000 mls @ 50 mls/hr 07/02/24 13:56 Dextrose 10% IV CONT .Q20H PRN if PN is interrupted Multivitamins 1.25 ml/ 1,002.5 mls @ 70 mls/hr 07/02/24 15:00 07/04/24 21:10 Multivitamins 1.25 ml/ Amino IV CONT 70 mls/hr Acids/Electrolytes/Dextrose .[id number] VANDANA Administration Protocol Dextrose 1,000 mls @ 100 mls/hr 07/02/24 13:59 Dextrose 5% 1,000 Ml IVPB PRN PRN Hypoglycemia Protocol Fat Emulsion Intravenous 250 mls @ 20.833 mls/hr 07/02/24 15:00 07/04/24 14:07 Lipids 20% IVPB 20.83 mls/hr Q24H VANDANA Administration Potassium Chloride/Dextrose/Sod Cl 1,000 mls @ 80 mls/hr 07/03/24 07:55 07/04/24 21:10 Kcl 40 Meq/D5ns IV CONT 80 mls/hr .[id number] VANDANA Administration Insulin Human Regular 0 units 07/02/24 18:00 07/05/24 06:09 Insulin Human Regular (*Bkc) 100 Units/Ml SUB-Q Not Given Q6HR VANDANA Protocol Lidocaine 1 patch 06/30/24 09:00 07/05/24 08:02 Lidocaine 5% Patch TRANSDERM 1 patch DAILY VANDANA Administration Metoprolol Tartrate 5 mg 07/02/24 08:51 07/04/24 05:19 Metoprolol Tartrate Inj 5 Mg/5 Ml Vial IV PUSH 5 mg Q4H PRN Administration Hypertension Ondansetron HCl 4 mg 06/27/24 08:21 07/01/24 06:03 Ondansetron Inj 4 Mg/2 Ml Vial IV PUSH 4 mg Q4H PRN Administration Nausea Pantoprazole Sodium 40 mg 06/28/24 09:00 07/05/24 08:02 Pantoprazole Sodium Iv 40 Mg Vial IV PUSH 40 mg QAM VANDANA Administration Sodium Chloride 10 ml 07/02/24 22:00 07/05/24 06:08 Central Line Flush IV PUSH Not Given Q8HR VANDANA Sodium Chloride 10 ml 07/02/24 15:38 07/04/24 14:13 Central Line Flush IV PUSH 10 ml PRN PRN Administration with TPN bag changes Sodium Chloride 20 ml 07/02/24 15:38 Central Line Flush IV PUSH PRN PRN after blood draws Thiamine HCl 100 mg 06/27/24 09:00 07/05/24 08:02 Thiamine Hcl 200 Mg/2 Ml Vial IV PUSH 100 mg DAILY VANDANA Administration Radiology Results: ITS Impressions Chest/Abdomen/Pelvis CTA 06/27/24 06:17 IMPRESSION: CHEST: 1. No pulmonary embolism. No aortic dissection 2. No acute cardiopulmonary pathology. ABDOMEN/PELVIS: 1. Small bowel obstruction with the transition zone in the terminal ileum area. Clinical correlation advised. 2. No evidence of appendicitis, or diverticulitis. Head CT 06/27/24 06:59 IMPRESSION: No acute intracranial findings. Cervical Spine CT 06/27/24 07:58 IMPRESSION: No acute osseous abnormality cervical spine. Multilevel degenerative disc disease. Small Bowel X-Ray 06/28/24 23:13 IMPRESSION: High-grade small bowel obstruction, as detailed above. NG Tube Placement 07/02/24 07:18 IMPRESSION: Fluoroscopy used during NG tube placement in the stomach. Chest X-Ray 07/02/24 15:30 IMPRESSION: 1. Right PICC line tip at the caudal superior vena cava. 2. Unchanged mild streaky bibasilar atelectasis and discoid atelectasis at the superior segment of the right lower lobe. Abdomen X-Ray 07/05/24 08:00 Impression: Small bowel obstruction with NG tube in place. Labs Labs: Laboratory Results - last 24 hr 07/04/24 07/04/24 07/05/24 11:26 23:41 05:32 WBC 9.2 RBC 3.35 L Hgb 10.5 L Hct 33.5 L MCV 100.0 MCH 31.3 MCHC 31.3 L RDW 13.9 Plt Count 202 MPV 10.9 H Immature Gran % (Auto) 0.9 H Neut % (Auto) 82.0 H Lymph % (Auto) 8.5 L [place] % (Auto) 7.1 Eos % (Auto) 1.3 Baso % (Auto) 0.2 Lymph # (Auto) 0.79 L [place] # (Auto) 0.7 H Eos # (Auto) 0.1 Baso # (Auto) 0.0 Abs Immat Gran (auto) 0.08 H Absolute Neuts (auto) 7.6 H Absolute Nucleated RBC 0.000 Nucleated RBC % 0.0 PT 14.4 INR 1.1 APTT 33.3 Sodium 143 Potassium 3.9 Chloride 115 H Carbon Dioxide 23 Anion Gap 5 BUN 21 H Creatinine 1.02 Estim Creat Clear Calc 61 Estimated GFR > 60 Glucose 149 H POC Capillary Glucose 150 H 156 H Calcium 7.9 L Phosphorus 3.1 Magnesium 2.3 Transferrin < 80 L Total Bilirubin 0.4 AST 18 ALT 13 Alkaline Phosphatase 41 Total Protein 5.0 L Albumin 2.3 L Quality VTE Prophylaxis VTE prophylaxis: pharmacologic ordered -Patient's previous records reviewed on admission -ER notes reviewed in detail on admission -discussed all findings and current treatment plan with patient/Family/POA -Consultations reviewed for recommendations -Patient's disposition for safe discharge discussed with sample case porter Dictation performed by [employer] direct speech recognition software, therefore space control supervisor variants and typographical errors may occur. Hospitalist MIPS Advance Care Plan I have confirmed that the patient's Advanced Care Plan is present, code status is documented, or surrogate decision maker is listed in patient medical record.: Yes Medication Reconciliation I have utilized all available resources to obtain, update and review the patients current medications (includes all prescriptions, OTC, herbals, cannabis, and nutritional supplements).: Yes The patient is not eligible for med reconciliation; the patient is in a emergent medical situation where delaying treatment would jeopardize the patients health.: No
[2024-07-05 09:39] LABS: Glucose Point of Care 136 mg/dl (65-105)
[2024-07-05] MEDS: HYDROmorphone HCL INJ (*CRX) 1 MG/ML SYR IV PUSH (10:58)
[2024-07-05] MEDS: ONDANSETRON INJ 4 MG/2 ML VIAL IV PUSH (10:58)
[2024-07-05 11:31] LABS: Glucose Point of Care 98 mg/dl (65-105)
[2024-07-05 12:17] LABS: Glucose Point of Care 148 mg/dl (65-105)
[2024-07-05] MEDS: AMINO ACIDS 5%/D15W/E-LYTES/CA 1,000 ML with MULTIVITAMINS-12 INJ VIAL 1 1.25 ML, MULTI... 70 ML IV CONT (13:17)
[2024-07-05] MEDS: CENTRAL LINE FLUSH 10 ML IV PUSH ×2 (13:18→22:32)
[2024-07-05] MEDS: hydrALAZINE HCL 20 MG/ML VIAL IV PUSH (15:10)
[2024-07-05] MEDS: KCL 40 MEQ/D5/0.9% SOD CHL 1,000 ML 80 ML IV CONT ×2 (15:16→22:32)
[2024-07-05] MEDS: FAT EMULSIONS IV 20% 250 ML 20.83 ML IVPB (15:42)
--- NOTE | 2024-07-05 15:50 | PCOTNOTE ---
Attempted to see pt. for occupational therapy evaluation. Per nursing pt.'s heart HR is elevated at this and was unable to mobilize from bed with PT due to HR. Following.
[2024-07-05 16:12] LABS: Triglycerides 173 mg/dL (<150)
--- NOTE | 2024-07-05 16:57 | PM.PNGS ---
Progress Note: A&P Assessment and Plan (1) Small bowel obstruction: Code(s): K56.609 - Unspecified intestinal obstruction, unspecified as to partial versus complete obstruction Status: Acute Assessment and Plan: Continues to have high NG output. SBS ordered today to further evaluate. Will continue NG tube decompression, bowel rest, and TPN today. Repeat labs and exam tomorrow. (2) Protein-calorie malnutrition, severe: Code(s): E43 - Unspecified severe protein-calorie malnutrition Status: Acute Assessment and Plan: Continue TPN. (3) Chronic alcohol use: Code(s): F10.90 - Alcohol use, unspecified, uncomplicated Status: Chronic Assessment and Plan: Patient more alert today. Continue to monitor. He is not receiving any Librium or pain medication to alter his mental status. Plan I have discussed the patient's case and plan of care with Dr. Shipman. Subjective Subjective Date/Time Seen: 07/05/24 16:57 Post Op day: 6 Patient reports: no new complaints, feels better, flatus and bowel movement (x1 today) Interval history: No abdominal pain. One BM this morning. He felt nauseous after receiving the contrast and vomited x 1 today. He is now back to wall suction. Exam Const: General: comfortable and awake Nutritional Appearance: average body habitus Orientation/consciousness: patient oriented x3 GI: Inspection: non-distended and incision (Dry and healing well) GI Palp: Yes Soft to palpation, Yes Tenderness to palpation present (GI) (diffuse mild tenderness), No Guarding due to palpation present (GI) and No Rebound tenderness present Auscultation: Hypoactive bowel sounds present (few bowel sounds ) Objective Data Vital Signs Vital Signs: Vital Signs - 24 hr 07/04/24 20:00 07/04/24 21:26 07/04/24 23:55 Temperature 98.0 F Pulse Rate 111 H 112 H 111 H Respiratory Rate 18 Blood Pressure 135/81 Pulse Oximetry 96 Oxygen Delivery 07/05/24 03:57 07/05/24 05:58 07/05/24 08:00 Temperature 98.2 F Pulse Rate 115 H 74 Respiratory Rate 18 Blood Pressure 145/71 H Pulse Oximetry 95 Oxygen Delivery Room Air 07/05/24 08:00 07/05/24 14:00 07/05/24 14:48 Temperature 97.6 F Pulse Rate 105 H 110 H Respiratory Rate 16 Blood Pressure 146/85 H Pulse Oximetry 95 Oxygen Delivery Room Air Intake/Output Intake/Output: Intake & Output 07/02/24 07/03/24 07/04/24 07/05/24 23:59 23:59 23:59 23:59 Intake Total 1780 3247.4 3149.6 2752.5 Output Total 2350 1775 3000 1050 Balance -570 1472.4 149.6 1702.5 Meds/Results Medications: Active Medications Generic Name Dose Route Start Last Admin Trade Name Freq PRN Reason Stop Dose Admin Acetaminophen 650 mg 06/27/24 08:21 Acetaminophen 325 Mg Tablet PO Q4H PRN Mild Pain (1-3) or Fever Chlordiazepoxide HCl 25 mg 06/27/24 07:40 Chlordiazepoxide (*Crx) 25 Mg Capsule PO Q6H PRN Withdrawal Dextrose 12.5 gm 07/02/24 13:59 Dextrose 50% 25 Gm/50 Ml Syringe IV PUSH PRN PRN Hypoglycemia Protocol Enoxaparin Sodium 40 mg 06/29/24 09:00 07/05/24 08:02 Enoxaparin 40 Mg/0.4 Ml Syringe SUB-Q 40 mg DAILY VANDANA Administration Fentanyl Citrate 12.5 mcg 07/04/24 16:56 Fentanyl Citrate Inj (*Crx) 100 Mcg/2 Ml Vial IV PUSH Q2H PRN Breakthrough Pain Rated 4-6 or NPO Fentanyl Citrate 25 mcg 07/04/24 16:56 Fentanyl Citrate Inj (*Crx) 100 Mcg/2 Ml Vial IV PUSH Q2H PRN Breakthrough Pain Rated 7-10 or NPO Glucagon 1 mg 07/02/24 13:59 Glucagon For Inj 1 Mg Vial IM PRN PRN Hypoglycemia Protocol Glucose 15 gm 07/02/24 13:59 Glucose Oral Gel 15 Gm Of Glucse In 37.5 Gm Tube PO PRN PRN Hypoglycemia Protocol Hydralazine HCl 20 mg 07/02/24 10:27 07/05/24 15:10 Hydralazine Hcl 20 Mg/Ml Vial IV PUSH 20 mg Q6H PRN Administration Hypertension Hydromorphone HCl 1 mg 06/29/24 15:34 07/05/24 10:58 Hydromorphone Hcl Inj (*Crx) 1 Mg/Ml Syr IV PUSH 1 mg Q3H PRN Administration Pain Rated 7-10 Ibuprofen 800 mg in 200 mls @ 400 mls/hr 06/29/24 17:00 07/05/24 08:33 Caldolor 800 Mg/200 Ml IVPB Infused Q8H VANDANA Infusion Dextrose 1,000 mls @ 50 mls/hr 07/02/24 13:56 Dextrose 10% IV CONT .Q20H PRN if PN is interrupted Multivitamins 1.25 ml/ 1,002.5 mls @ 70 mls/hr 07/02/24 15:00 07/05/24 13:17 Multivitamins 1.25 ml/ Amino IV CONT 70 mls/hr Acids/Electrolytes/Dextrose .[id number] VANDANA Administration Protocol Dextrose 1,000 mls @ 100 mls/hr 07/02/24 13:59 Dextrose 5% 1,000 Ml IVPB PRN PRN Hypoglycemia Protocol Fat Emulsion Intravenous 250 mls @ 20.833 mls/hr 07/02/24 15:00 07/05/24 15:42 Lipids 20% IVPB 20.83 mls/hr Q24H VANDANA Administration Potassium Chloride/Dextrose/Sod Cl 1,000 mls @ 80 mls/hr 07/03/24 07:55 07/05/24 15:16 Kcl 40 Meq/D5ns IV CONT 80 mls/hr .[id number] VANDANA Administration Insulin Human Regular 0 units 07/02/24 18:00 07/05/24 13:14 Insulin Human Regular (*Bkc) 100 Units/Ml SUB-Q Not Given Q6HR [facility] Protocol Lidocaine 1 patch 06/30/24 09:00 07/05/24 08:02 Lidocaine 5% Patch TRANSDERM 1 patch DAILY VANDANA Administration Metoprolol Tartrate 5 mg 07/02/24 08:51 07/04/24 05:19 Metoprolol Tartrate Inj 5 Mg/5 Ml Vial IV PUSH 5 mg Q4H PRN Administration Hypertension Ondansetron HCl 4 mg 06/27/24 08:21 07/05/24 10:58 Ondansetron Inj 4 Mg/2 Ml Vial IV PUSH 4 mg Q4H PRN Administration Nausea Pantoprazole Sodium 40 mg 06/28/24 09:00 07/05/24 08:02 Pantoprazole Sodium Iv 40 Mg Vial IV PUSH 40 mg QAM VANDANA Administration Sodium Chloride 10 ml 07/02/24 22:00 07/05/24 13:18 Central Line Flush IV PUSH 10 ml Q8HR VANDANA Administration Sodium Chloride 10 ml 07/02/24 15:38 07/04/24 14:13 Central Line Flush IV PUSH 10 ml PRN PRN Administration with TPN bag changes Sodium Chloride 20 ml 07/02/24 15:38 Central Line Flush IV PUSH PRN PRN after blood draws Thiamine HCl 100 mg 06/27/24 09:00 07/05/24 08:02 Thiamine Hcl 200 Mg/2 Ml Vial IV PUSH 100 mg DAILY VANDANA Administration Radiology Results: ITS Impressions Chest/Abdomen/Pelvis CTA 06/27/24 06:17 IMPRESSION: CHEST: 1. No pulmonary embolism. No aortic dissection 2. No acute cardiopulmonary pathology. ABDOMEN/PELVIS: 1. Small bowel obstruction with the transition zone in the terminal ileum area. Clinical correlation advised. 2. No evidence of appendicitis, or diverticulitis. Head CT 06/27/24 06:59 IMPRESSION: No acute intracranial findings. Cervical Spine CT 06/27/24 07:58 IMPRESSION: No acute osseous abnormality cervical spine. Multilevel degenerative disc disease. NG Tube Placement 07/02/24 07:18 IMPRESSION: Fluoroscopy used during NG tube placement in the stomach. Chest X-Ray 07/02/24 15:30 IMPRESSION: 1. Right PICC line tip at the caudal superior vena cava. 2. Unchanged mild streaky bibasilar atelectasis and discoid atelectasis at the superior segment of the right lower lobe. Abdomen X-Ray 07/05/24 08:00 Impression: Small bowel obstruction with NG tube in place. Small Bowel X-Ray 07/05/24 16:01 IMPRESSION: 1. Persistent ileus versus small bowel obstruction with contrast not having reached the distalmost dilated loops of gas-filled small bowel over the course of 6 hours. Labs Labs: Laboratory Results - last 24 hr 07/04/24 07/05/24 07/05/24 23:41 05:32 05:37 WBC 9.2 RBC 3.35 L Hgb 10.5 L Hct 33.5 L MCV 100.0 MCH 31.3 MCHC 31.3 L RDW 13.9 Plt Count 202 MPV 10.9 H Immature Gran % (Auto) 0.9 H Neut % (Auto) 82.0 H Lymph % (Auto) 8.5 L [place] % (Auto) 7.1 Eos % (Auto) 1.3 Baso % (Auto) 0.2 Lymph # (Auto) 0.79 L [place] # (Auto) 0.7 H Eos # (Auto) 0.1 Baso # (Auto) 0.0 Abs Immat Gran (auto) 0.08 H Absolute Neuts (auto) 7.6 H Absolute Nucleated RBC 0.000 Nucleated RBC % 0.0 PT 14.4 INR 1.1 APTT 33.3 Sodium 143 Potassium 3.9 Chloride 115 H Carbon Dioxide 23 Anion Gap 5 BUN 21 H Creatinine 1.02 Estim Creat Clear Calc 61 Estimated GFR > 60 Glucose 149 H POC Capillary Glucose 156 H 148 H Calcium 7.9 L Phosphorus 3.1 Magnesium 2.3 Transferrin < 80 L Total Bilirubin 0.4 AST 18 ALT 13 Alkaline Phosphatase 41 Total Protein 5.0 L Albumin 2.3 L Triglycerides 07/05/24 07/05/24 07/05/24 08:30 11:23 15:45 WBC RBC Hgb Hct MCV MCH MCHC RDW Plt Count MPV Immature Gran % (Auto) Neut % (Auto) Lymph % (Auto) [place] % (Auto) Eos % (Auto) Baso % (Auto) Lymph # (Auto) [place] # (Auto) Eos # (Auto) Baso # (Auto) Abs Immat Gran (auto) Absolute Neuts (auto) Absolute Nucleated RBC Nucleated RBC % PT INR APTT Sodium Potassium Chloride Carbon Dioxide Anion Gap BUN Creatinine Estim Creat Clear Calc Estimated GFR Glucose POC Capillary Glucose 136 H 98 Calcium Phosphorus Magnesium Transferrin Total Bilirubin AST ALT Alkaline Phosphatase Total Protein Albumin Triglycerides 173 H
[2024-07-05 18:01] LABS: Glucose Point of Care 130 mg/dl (65-105)
[2024-07-06] VITALS (21 sets, daily range): BP systolic 88–162; BP diastolic 53–106; PULSE 58–156; RESP 10–26; TEMP 36.1–38.7; O2SAT 92–100
[2024-07-06 00:53] LABS: Glucose Point of Care 142 mg/dl (65-105)
[2024-07-06] MEDS: IBUPROFEN IV 800 MG/200 ML 800 MG/200 ML BAG 400 MG IVPB ×3 (00:59→20:48)
[2024-07-06] MEDS: AMINO ACIDS 5%/D15W/E-LYTES/CA 1,000 ML with MULTIVITAMINS-12 INJ VIAL 1 1.25 ML, MULTI... 70 ML IV CONT ×2 (01:00→21:49)
[2024-07-06 06:10] LABS: Hematocrit 35.3 % (42.0-52.0); Hemoglobin 11.2 g/dL (14.0-18.0); Mean Corpuscular HGB Conc 31.7 g/dl (32-36); Mean Corpuscular Hemoglobin 31.3 pg (26-34); Mean Corpuscular Volume 98.6 fl (80-100); Mean Platelet Volume 11.6 fl (7.4-10.4); Platelet Count Result 257 k/mm3 (150-375); Red Blood Count 3.58 M/mm3 (4.6-6.20); Red Cell Distribution Width 13.8 % (11.5-14.5); White Blood Count 10.3 K/mm3 (4.5-10.0)
[2024-07-06 06:22] LABS: Anion Gap 8 mmol/L (4-12); Blood Urea Nitrogen 20 mg/dL (9-20); Calcium 8.3 mg/dL (8.4-10.2); Carbon Dioxide 22 mmol/L (22-30); Chloride 117 mmol/L (98-107); Estimated CRCL calculation 63 ml/min; Estimated Glomerular Filt Rate > 60; Glucose 137 mg/dL (65-110); Phosphorus 3.3 mg/dL (2.5-4.5); Potassium 3.8 mmol/L (3.4-5.0); Sodium 147 mmol/L (137-145)
[2024-07-06] MEDS: ENOXAPARIN 40 MG/0.4 ML SYRINGE SUB-Q (08:50)
[2024-07-06] MEDS: PANTOPRAZOLE SODIUM IV 40 MG VIAL IV PUSH (08:51)
[2024-07-06] MEDS: LIDOCAINE 5% PATCH 1 PATCH TRANSDERM (08:51)
[2024-07-06] MEDS: THIAMINE HCL 200 MG/2 ML VIAL 100 MG IV PUSH (08:51)
--- NOTE | 2024-07-06 09:49 | PCNFU ---
Nutrition Follow-Up Complete: Inadequate energy intake related to small bowel obstruction as evidenced by NPO day 5 Goal:Meet estimated nutrition needs PO intake when medically able Pt progressing towards goal Pt current nutrition is NPO, TPN Clnimix E 08/05 with lipids running at 70ml/hr = 1693kcals, 84g protein. Nutrition recommendation: continue with current plan of care Last recorded weight is 77.2 kg. Bowel Motility: +BM 07/05 Labs Reviewed: Hgb:11.2, HCT:35.3, Alb:2.3, NA:147, Glu:137 Meds Noted: protonix, thiamin, lovenox Skin: WNL Additional Notes: Pt continues NPO, NGT to suction and TPN running for nutrition support. TPN meeting 88% of estimated needs, 109% of protein needs. Noted a bowel movement and flatus yesterday. Advance diet PO per surgery when appropriate. Will continue to monitor. Monitoring orders, TPN tolerance, labs, weights, meds, output, plan of care Follow up Friday/Friday
--- NOTE | 2024-07-06 10:18 | P.PNIM_ITS ---
Progress Note: A&P Assessment and Plan (1) Small bowel obstruction: Code(s): K56.609 - Unspecified intestinal obstruction, unspecified as to partial versus complete obstruction Status: Acute Assessment and Plan: Patient admitted after complaints of ABD pain with N/V. CT chest abdomen pelvis CTA was performed which showed no PE no aortic dissection. Abdomen pelvis showed small-bowel obstruction with the transition zone in the terminal ileum area. No evidence of appendicitis or diverticulitis. General surgery was consulted and patient was taken for exploratory laparotomy 06/29/2024 for repair serosal tears x2. IV fluids switched to Dextrose 5/water NA up to 149 and BS 68. Patient had pulled out his NG tube which was replaced under fluoroscopy, mild distention noted reporting having flatulence and bowel movement reported overnight, Tolerating TPN . Continue to encourage patient to get up and perform activity ordered PT/OT. reported he appeared more lethargic yesterday afternoon pain medication adjusted by surgery less lethargic today small bowel series showed persistent ileus versus small-bowel obstruction with contrast not having reach the distal most dilated loops . Patient post-op day 7 KUB with A continued postoperative SBO will need to continue NPO and NG tube * Patient going back for exploratory surgery due to ongoing SBO 07/06/2024 * NPO with Ice chips * NG tube to suction continued for decompression * pain control * ambulate as tolerated * Antiemetics * Will advance diet per surgery once bowel function has returned * Incentive spirometer * PT/OT * Continue serial KUB (2) Chronic alcohol use: Code(s): F10.90 - Alcohol use, unspecified, uncomplicated Status: Chronic Assessment and Plan: Does not appear in withdrawal at this time will continue to monitor * Last drink 06/23 * Thiamine, folic acid, and multi-vitamin * PPI daily * librium PRN * CIWA daily * Monitor and replenish electrolytes as needed (3) Hypertension: Code(s): I10 - Essential (primary) hypertension Status: Acute Assessment and Plan: patient has been hypertensive systolics running between 180s to 160s. patient does not take any hypertensive medications at home will re-evaluate prior to discharge if patient will need oral antihypertensive medications at discharge after current acute issues are resolved. * I added hydralazine 20 mg IV push as needed for systolics greater than 160 * episodes of tachycardia surgery added metoprolol IV push PRN * BP per unit protocol (4) ORTEGA (acute kidney injury): Code(s): N17.9 - Acute kidney failure, unspecified Status: Resolved Assessment and Plan: * Acute kidney injury CR 1.98 POA since resolved with IV fluids (5) Hypernatremia: Code(s): E87.0 - Hyperosmolality and hypernatremia Status: Resolved Assessment and Plan: * Patient now with hypernatremia at 149 discussed with surgery we will switch his IV fluids to dextrose 5 and water follow-up BMP later on today (6) Hyponatremia: Code(s): E87.1 - Hypo-osmolality and hyponatremia Status: Resolved Assessment and Plan: * Resolved likely secondary to dehydration and ETOH abuse patient was initially 130 POA resolved with IV fluids Plan Code status: Full code per patient DVT prophylaxis: Lovenox Stress ulcer prophylaxis: Protonix 40 daily PT/OT notes: Ambulatory Disposition: Patient continues admission to the medical unit for further treatment small-bowel obstruction postop day 7 with NG tube for decompression KUB still showing SBO continue on with NPO status and NG tube Time Spent With Patient Time with patient: 15 - 25 minutes Subjective Date/time seen: 07/06/24 10:18 Interval history: This is a 64-year-old male who presented to the ED with few days history of nausea vomiting and abdominal pain. He also reports not having bowel movement for past few days. Was found to has small-bowel obstruction underwent exploratory laparotomy in it colitis with repair of serosal tears 06/30/2024. 07/06/2024: KUB still showing SBO with an increased amount of drainage from the NG tube, ABD distention. Nursing staff call report bloody BM with clots. Patient reported no acute distress or complaints due to ongoing SBO without resolution he is being taking back for exploratory surgery. Review of Systems Review of Systems: All systems reviewed & are unremarkable except as noted in HPI and below Exam Const: General: comfortable and no acute distress HENMT: Mouth: Yes moist mucous membranes Eyes: General: appearance normal, both eyes and all related structures Pupils: Equal, round and reactive pupils present Neck: Neck: supple and no JVD Resp: Effort & Inspection: normal respiratory effort Auscultation: clear to auscultation bilaterally Cardio: Rate: regular rate Rhythm: regular rhythm GI: Auscultation: abnormal bowel sounds (hypoactive) Skin: General skin exam: normal color Neuro: General: gait normal Cranial nerves: Yes Equal, round and reactive pupils present Speech: normal speech Extrem: General: normal to inspection Psych: Mental Status: mental status grossly normal Affect: normal affect Objective Data Vital Signs Vital Signs: Vital Signs - 24 hr 07/05/24 14:00 07/05/24 14:48 07/05/24 16:00 Temperature 97.6 F Pulse Rate 110 H 136 H Respiratory Rate 16 Blood Pressure 146/85 H Pulse Oximetry 95 Oxygen Delivery Room Air 07/05/24 20:00 07/05/24 20:10 07/06/24 00:00 Temperature 97.2 F L Pulse Rate 123 H 123 H 58 L Respiratory Rate 16 Blood Pressure 138/73 Pulse Oximetry 95 Oxygen Delivery 07/06/24 04:00 07/06/24 05:00 07/06/24 06:59 Temperature 97.5 F L Pulse Rate 109 H 120 H 65 Respiratory Rate 16 Blood Pressure 161/86 H 160/106 H Pulse Oximetry 96 Oxygen Delivery Intake/Output Intake/Output: Intake & Output 07/03/24 07/04/24 07/05/24 07/06/24 23:59 23:59 23:59 23:59 Intake Total 3247.4 3149.6 3533.8 1020.2 Output Total 1775 3000 3200 1300 Balance 1472.4 149.6 333.8 -279.8 Meds/Results Medications: Active Medications Generic Name Dose Route Start Last Admin Trade Name Freq PRN Reason Stop Dose Admin Acetaminophen 650 mg 06/27/24 08:21 Acetaminophen 325 Mg Tablet PO Q4H PRN Mild Pain (1-3) or Fever Chlordiazepoxide HCl 25 mg 06/27/24 07:40 Chlordiazepoxide (*Crx) 25 Mg Capsule PO Q6H PRN Withdrawal Dextrose 12.5 gm 07/02/24 13:59 Dextrose 50% 25 Gm/50 Ml Syringe IV PUSH PRN PRN Hypoglycemia Protocol Enoxaparin Sodium 40 mg 06/29/24 09:00 07/06/24 08:50 Enoxaparin 40 Mg/0.4 Ml Syringe SUB-Q 40 mg DAILY VANDANA Administration Fentanyl Citrate 12.5 mcg 07/04/24 16:56 Fentanyl Citrate Inj (*Crx) 100 Mcg/2 Ml Vial IV PUSH Q2H PRN Breakthrough Pain Rated 4-6 or NPO Fentanyl Citrate 25 mcg 07/04/24 16:56 Fentanyl Citrate Inj (*Crx) 100 Mcg/2 Ml Vial IV PUSH Q2H PRN Breakthrough Pain Rated 7-10 or NPO Glucagon 1 mg 07/02/24 13:59 Glucagon For Inj 1 Mg Vial IM PRN PRN Hypoglycemia Protocol Glucose 15 gm 07/02/24 13:59 Glucose Oral Gel 15 Gm Of Glucse In 37.5 Gm Tube PO PRN PRN Hypoglycemia Protocol Hydralazine HCl 20 mg 07/02/24 10:27 07/05/24 15:10 Hydralazine Hcl 20 Mg/Ml Vial IV PUSH 20 mg Q6H PRN Administration Hypertension Hydromorphone HCl 1 mg 06/29/24 15:34 07/05/24 10:58 Hydromorphone Hcl Inj (*Crx) 1 Mg/Ml Syr IV PUSH 1 mg Q3H PRN Administration Pain Rated 7-10 Ibuprofen 800 mg in 200 mls @ 400 mls/hr 06/29/24 17:00 07/06/24 08:50 Caldolor 800 Mg/200 Ml IVPB 400 mls/hr Q8H VANDANA Administration Dextrose 1,000 mls @ 50 mls/hr 07/02/24 13:56 Dextrose 10% IV CONT .Q20H PRN if PN is interrupted Multivitamins 1.25 ml/ 1,002.5 mls @ 70 mls/hr 07/02/24 15:00 07/06/24 01:00 Multivitamins 1.25 ml/ Amino IV CONT 70 mls/hr Acids/Electrolytes/Dextrose .[id number] VANDANA Administration Protocol Dextrose 1,000 mls @ 100 mls/hr 07/02/24 13:59 Dextrose 5% 1,000 Ml IVPB PRN PRN Hypoglycemia Protocol Fat Emulsion Intravenous 250 mls @ 20.833 mls/hr 07/02/24 15:00 07/05/24 15:42 Lipids 20% IVPB 20.83 mls/hr Q24H VANDANA Administration Potassium Chloride/Dextrose/Sod Cl 1,000 mls @ 80 mls/hr 07/03/24 07:55 07/05/24 22:32 Kcl 40 Meq/D5ns IV CONT 80 mls/hr .[id number] VANDANA Administration Insulin Human Regular 0 units 07/02/24 18:00 07/06/24 08:49 Insulin Human Regular (*Bkc) 100 Units/Ml SUB-Q Not Given Q6HR [facility] Protocol Lidocaine 1 patch 06/30/24 09:00 07/06/24 08:51 Lidocaine 5% Patch TRANSDERM 1 patch DAILY VANDANA Administration Metoprolol Tartrate 5 mg 07/02/24 08:51 07/04/24 05:19 Metoprolol Tartrate Inj 5 Mg/5 Ml Vial IV PUSH 5 mg Q4H PRN Administration Hypertension Ondansetron HCl 4 mg 06/27/24 08:21 07/05/24 10:58 Ondansetron Inj 4 Mg/2 Ml Vial IV PUSH 4 mg Q4H PRN Administration Nausea Pantoprazole Sodium 40 mg 06/28/24 09:00 07/06/24 08:51 Pantoprazole Sodium Iv 40 Mg Vial IV PUSH 40 mg QAM VANDANA Administration Sodium Chloride 10 ml 07/02/24 22:00 07/06/24 04:34 Central Line Flush IV PUSH Not Given Q8HR VANDANA Sodium Chloride 10 ml 07/02/24 15:38 07/04/24 14:13 Central Line Flush IV PUSH 10 ml PRN PRN Administration with TPN bag changes Sodium Chloride 20 ml 07/02/24 15:38 Central Line Flush IV PUSH PRN PRN after blood draws Thiamine HCl 100 mg 06/27/24 09:00 07/06/24 08:51 Thiamine Hcl 200 Mg/2 Ml Vial IV PUSH 100 mg DAILY VANDANA Administration Radiology Results: ITS Impressions Chest/Abdomen/Pelvis CTA 06/27/24 06:17 IMPRESSION: CHEST: 1. No pulmonary embolism. No aortic dissection 2. No acute cardiopulmonary pathology. ABDOMEN/PELVIS: 1. Small bowel obstruction with the transition zone in the terminal ileum area. Clinical correlation advised. 2. No evidence of appendicitis, or diverticulitis. Head CT 06/27/24 06:59 IMPRESSION: No acute intracranial findings. Cervical Spine CT 06/27/24 07:58 IMPRESSION: No acute osseous abnormality cervical spine. Multilevel degenerative disc disease. NG Tube Placement 07/02/24 07:18 IMPRESSION: Fluoroscopy used during NG tube placement in the stomach. Chest X-Ray 07/02/24 15:30 IMPRESSION: 1. Right PICC line tip at the caudal superior vena cava. 2. Unchanged mild streaky bibasilar atelectasis and discoid atelectasis at the superior segment of the right lower lobe. Small Bowel X-Ray 07/05/24 16:01 IMPRESSION: 1. Persistent ileus versus small bowel obstruction with contrast not having reached the distalmost dilated loops of gas-filled small bowel over the course of 6 hours. Abdomen X-Ray 07/06/24 06:36 Impression: Small bowel obstruction with NG tube in place. Labs Labs: Laboratory Results - last 24 hr 07/05/24 07/05/24 07/05/24 05:37 11:23 15:45 WBC RBC Hgb Hct MCV MCH MCHC RDW Plt Count MPV Sodium Potassium Chloride Carbon Dioxide Anion Gap BUN Creatinine Estim Creat Clear Calc Estimated GFR Glucose POC Capillary Glucose 148 H 98 Calcium Phosphorus Triglycerides 173 H 07/05/24 07/06/24 07/06/24 17:56 00:51 05:29 WBC 10.3 H RBC 3.58 L Hgb 11.2 L Hct 35.3 L MCV 98.6 MCH 31.3 MCHC 31.7 L RDW 13.8 Plt Count 257 MPV 11.6 H Sodium 147 H Potassium 3.8 Chloride 117 H Carbon Dioxide 22 Anion Gap 8 BUN 20 Creatinine 0.99 Estim Creat Clear Calc 63 Estimated GFR > 60 Glucose 137 H POC Capillary Glucose 130 H 142 H Calcium 8.3 L Phosphorus 3.3 Triglycerides Quality VTE Prophylaxis VTE prophylaxis: pharmacologic ordered -Patient's previous records reviewed on admission -ER notes reviewed in detail on admission -discussed all findings and current treatment plan with patient/Family/POA -Consultations reviewed for recommendations -Patient's disposition for safe discharge discussed with case manager specialist Dictation performed by [employer] direct speech recognition software, therefore animal husbandry professor variants and typographical errors may occur. Hospitalist MIPS Advance Care Plan I have confirmed that the patient's Advanced Care Plan is present, code status is documented, or surrogate decision maker is listed in patient medical record.: Yes Medication Reconciliation I have utilized all available resources to obtain, update and review the danuta ents current medications (includes all prescriptions, OTC, herbals, cannabis, and nutritional supplements).: Yes The patient is not eligible for med reconciliation; the patient is in a emergent medical situation where delaying treatment would jeopardize the patients health.: No
--- NOTE | 2024-07-06 11:17 | P.PNGS_ITS ---
Progress Note: A&P Assessment and Plan (1) Small bowel obstruction: Code(s): K56.609 - Unspecified intestinal obstruction, unspecified as to partial versus complete obstruction Status: Acute Assessment and Plan: Small-bowel follow-through showed no contrast in the colon at 6 hours. These results along with his high NG output is concerning for persistent small bowel obstruction. Will repeat a CT scan of the abdomen and pelvis today to further evaluate. Continue NG tube decompression, bowel rest, and TPN. (2) Protein-calorie malnutrition, severe: Code(s): E43 - Unspecified severe protein-calorie malnutrition Status: Acute Assessment and Plan: Continue TPN. (3) Chronic alcohol use: Code(s): F10.90 - Alcohol use, unspecified, uncomplicated Status: Chronic Plan I have discussed the patient's case and plan of care with Dr. Shipman. Subjective Subjective Date/Time Seen: 07/06/24 11:17 Post Op day: 7 (Exploratory laparotomy and adhesiolysis with repair of serosal tears x2) Interval history: Complains of diffuse abdominal tenderness with movement. He was reportedly reposition and was up out of bed last night, which made him more sore. Denies any nausea. Has been passing flatus. He reports having a bowel movement last night. He states that he is having very little amounts of loose stool seeping out when he tries urinating. He is an actually getting up and going to the bathroom to have a bowel movement. He also reports he has not seen these ?bowel movements? as he is wearing depends. Still with high NG output with about 1700 cc out overnight and 700 cc out yesterday during day shift after being hooked up to suction once the small-bowel follow-through was finished. Exam 2 Const: General: comfortable and no acute distress GI: Inspection: incision (Dry and glue intact, no erythema, minimal healing ecchymosis) and other (Mildly distended) GI Palp: Yes Soft to palpation, Yes Tenderness to palpation present (GI) (mild diffuse tenderness), No Guarding due to palpation present (GI) and No Rebound tenderness present Auscultation: Hypoactive bowel sounds present Extrem: General: no calf tenderness and no edema Objective Data Vital Signs Vital Signs: Vital Signs - 24 hr 07/05/24 14:00 07/05/24 14:48 07/05/24 16:00 Temperature 97.6 F Pulse Rate 110 H 136 H Respiratory Rate 16 Blood Pressure 146/85 H Pulse Oximetry 95 Oxygen Delivery Room Air 07/05/24 20:00 07/05/24 20:10 07/06/24 00:00 Temperature 97.2 F L Pulse Rate 123 H 123 H 58 L Respiratory Rate 16 Blood Pressure 138/73 Pulse Oximetry 95 Oxygen Delivery 07/06/24 04:00 07/06/24 05:00 07/06/24 06:59 Temperature 97.5 F L Pulse Rate 109 H 120 H 65 Respiratory Rate 16 Blood Pressure 161/86 H 160/106 H Pulse Oximetry 96 Oxygen Delivery Intake/Output Intake/Output: Intake & Output 07/03/24 07/04/24 07/05/24 07/06/24 23:59 23:59 23:59 23:59 Intake Total 3247.4 3149.6 3533.8 1020.2 Output Total 1775 3000 3200 1300 Balance 1472.4 149.6 333.8 -279.8 Meds/Results Medications: Active Medications Generic Name Dose Route Start Last Admin Trade Name Freq PRN Reason Stop Dose Admin Acetaminophen 650 mg 06/27/24 08:21 Acetaminophen 325 Mg Tablet PO Q4H PRN Mild Pain (1-3) or Fever Chlordiazepoxide HCl 25 mg 06/27/24 07:40 Chlordiazepoxide (*Crx) 25 Mg Capsule PO Q6H PRN Withdrawal Dextrose 12.5 gm 07/02/24 13:59 Dextrose 50% 25 Gm/50 Ml Syringe IV PUSH PRN PRN Hypoglycemia Protocol Enoxaparin Sodium 40 mg 06/29/24 09:00 07/06/24 08:50 Enoxaparin 40 Mg/0.4 Ml Syringe SUB-Q 40 mg DAILY VANDANA Administration Fentanyl Citrate 12.5 mcg 07/04/24 16:56 Fentanyl Citrate Inj (*Crx) 100 Mcg/2 Ml Vial IV PUSH Q2H PRN Breakthrough Pain Rated 4-6 or NPO Fentanyl Citrate 25 mcg 07/04/24 16:56 Fentanyl Citrate Inj (*Crx) 100 Mcg/2 Ml Vial IV PUSH Q2H PRN Breakthrough Pain Rated 7-10 or NPO Glucagon 1 mg 07/02/24 13:59 Glucagon For Inj 1 Mg Vial IM PRN PRN Hypoglycemia Protocol Glucose 15 gm 07/02/24 13:59 Glucose Oral Gel 15 Gm Of Glucse In 37.5 Gm Tube PO PRN PRN Hypoglycemia Protocol Hydralazine HCl 20 mg 07/02/24 10:27 07/05/24 15:10 Hydralazine Hcl 20 Mg/Ml Vial IV PUSH 20 mg Q6H PRN Administration Hypertension Hydromorphone HCl 1 mg 06/29/24 15:34 07/05/24 10:58 Hydromorphone Hcl Inj (*Crx) 1 Mg/Ml Syr IV PUSH 1 mg Q3H PRN Administration Pain Rated 7-10 Ibuprofen 800 mg in 200 mls @ 400 mls/hr 06/29/24 17:00 07/06/24 08:50 Caldolor 800 Mg/200 Ml IVPB 400 mls/hr Q8H VANDANA Administration Dextrose 1,000 mls @ 50 mls/hr 07/02/24 13:56 Dextrose 10% IV CONT .Q20H PRN if PN is interrupted Multivitamins 1.25 ml/ 1,002.5 mls @ 70 mls/hr 07/02/24 15:00 07/06/24 01:00 Multivitamins 1.25 ml/ Amino IV CONT 70 mls/hr Acids/Electrolytes/Dextrose .[id number] VANDANA Administration Protocol Dextrose 1,000 mls @ 100 mls/hr 07/02/24 13:59 Dextrose 5% 1,000 Ml IVPB PRN PRN Hypoglycemia Protocol Fat Emulsion Intravenous 250 mls @ 20.833 mls/hr 07/02/24 15:00 07/05/24 15:42 Lipids 20% IVPB 20.83 mls/hr Q24H VANDANA Administration Potassium Chloride/Dextrose/Sod Cl 1,000 mls @ 80 mls/hr 07/03/24 07:55 07/05/24 22:32 Kcl 40 Meq/D5ns IV CONT 80 mls/hr .[id number] VANDANA Administration Insulin Human Regular 0 units 07/02/24 18:00 07/06/24 08:49 Insulin Human Regular (*Bkc) 100 Units/Ml SUB-Q Not Given Q6HR VANDANA Protocol Lidocaine 1 patch 06/30/24 09:00 07/06/24 08:51 Lidocaine 5% Patch TRANSDERM 1 patch DAILY VANDANA Administration Metoprolol Tartrate 5 mg 07/02/24 08:51 07/04/24 05:19 Metoprolol Tartrate Inj 5 Mg/5 Ml Vial IV PUSH 5 mg Q4H PRN Administration Hypertension Ondansetron HCl 4 mg 06/27/24 08:21 07/05/24 10:58 Ondansetron Inj 4 Mg/2 Ml Vial IV PUSH 4 mg Q4H PRN Administration Nausea Pantoprazole Sodium 40 mg 06/28/24 09:00 07/06/24 08:51 Pantoprazole Sodium Iv 40 Mg Vial IV PUSH 40 mg QAM VANDANA Administration Sodium Chloride 10 ml 07/02/24 22:00 07/06/24 04:34 Central Line Flush IV PUSH Not Given Q8HR VANDANA Sodium Chloride 10 ml 07/02/24 15:38 07/04/24 14:13 Central Line Flush IV PUSH 10 ml PRN PRN Administration with TPN bag changes Sodium Chloride 20 ml 07/02/24 15:38 Central Line Flush IV PUSH PRN PRN after blood draws Thiamine HCl 100 mg 06/27/24 09:00 07/06/24 08:51 Thiamine Hcl 200 Mg/2 Ml Vial IV PUSH 100 mg DAILY VANDANA Administration Radiology Results: ITS Impressions Chest/Abdomen/Pelvis CTA 06/27/24 06:17 IMPRESSION: CHEST: 1. No pulmonary embolism. No aortic dissection 2. No acute cardiopulmonary pathology. ABDOMEN/PELVIS: 1. Small bowel obstruction with the transition zone in the terminal ileum area. Clinical correlation advised. 2. No evidence of appendicitis, or diverticulitis. Head CT 06/27/24 06:59 IMPRESSION: No acute intracranial findings. Cervical Spine CT 06/27/24 07:58 IMPRESSION: No acute osseous abnormality cervical spine. Multilevel degenerative disc disease. NG Tube Placement 07/02/24 07:18 IMPRESSION: Fluoroscopy used during NG tube placement in the stomach. Chest X-Ray 07/02/24 15:30 IMPRESSION: 1. Right PICC line tip at the caudal superior vena cava. 2. Unchanged mild streaky bibasilar atelectasis and discoid atelectasis at the superior segment of the right lower lobe. Small Bowel X-Ray 07/05/24 16:01 IMPRESSION: 1. Persistent ileus versus small bowel obstruction with contrast not having reached the distalmost dilated loops of gas-filled small bowel over the course of 6 hours. Abdomen X-Ray 07/06/24 06:36 Impression: Small bowel obstruction with NG tube in place. Abdomen/Pelvis CT 07/06/24 11:01 Impression: Findings compatible small bowel obstruction, with relative transition point in the mid small bowel. No obstructing mass evident. Small amount of ascites with mesenteric edema. Small right pleural effusion with patchy bibasilar pulmonary consolidation. Correlate for pulmonary edema/atelectasis versus pneumonia. Small stones versus dense contrast layering the urinary bladder. Labs Labs: Laboratory Results - last 24 hr 07/05/24 07/05/24 07/05/24 05:37 11:23 15:45 WBC RBC Hgb Hct MCV MCH MCHC RDW Plt Count MPV Sodium Potassium Chloride Carbon Dioxide Anion Gap BUN Creatinine Estim Creat Clear Calc Estimated GFR Glucose POC Capillary Glucose 148 H 98 Calcium Phosphorus Triglycerides 173 H 07/05/24 07/06/24 07/06/24 17:56 00:51 05:29 WBC 10.3 H RBC 3.58 L Hgb 11.2 L Hct 35.3 L MCV 98.6 MCH 31.3 MCHC 31.7 L RDW 13.8 Plt Count 257 MPV 11.6 H Sodium 147 H Potassium 3.8 Chloride 117 H Carbon Dioxide 22 Anion Gap 8 BUN 20 Creatinine 0.99 Estim Creat Clear Calc 63 Estimated GFR > 60 Glucose 137 H POC Capillary Glucose 130 H 142 H Calcium 8.3 L Phosphorus 3.3 Triglycerides
[2024-07-06] MEDS: KCL 40 MEQ/D5/0.9% SOD CHL 1,000 ML 80 ML IV CONT (11:23)
[2024-07-06 12:39] LABS: Hematocrit 35.8 % (42.0-52.0)
[2024-07-06 12:52] LABS: Glucose Point of Care 120 mg/dl (65-105)
[2024-07-06] MEDS: CENTRAL LINE FLUSH 10 ML IV PUSH ×2 (13:01→21:50)
[2024-07-06] MEDS: LACTATED RINGERS 1,000 ML 30 ML IV CONT ×2 (14:15→17:54)
--- NOTE | 2024-07-06 14:18 | WPDANESEPPF ---
Anes - Initial Pre Proc Eval Procedure: Operation Date: 06/29/24 13:30 Proposed Procedures p Exploratory Laparotomy, Possible Bowel Resection - Jeanmarie Plata MD Operation Date: 07/06/24 15:30 Proposed Procedures p Exploratory Laparotomy for Small Bowel Obstruction - Zach Shipman MD Date/Time: 07/06/24 14:18 Surgeon: Lilibeth Rodriguez MD Pre Op Diagnosis: NSTEMI, small bowel obstruction; potential for Patient Data Age: 64 Gender: M Height: 1.73 m Weight: 77.2 kg Last Vital Signs Temp 36.4 C L 07/06/24 05:00 Pulse 100 07/06/24 12:00 Resp 16 07/06/24 05:00 BP 160/106 H 07/06/24 06:59 Pulse Ox 96 07/06/24 05:00 O2 Del Method Room Air 07/06/24 11:01 O2 Flow Rate 6 06/29/24 15:45 Allergies Allergy/AdvReac Type Severity Reaction Status Date / Time No Known Allergies Allergy Unknown Verified 06/29/24 12:45 Home Medications ?Medication ?Instructions ?Recorded ?Confirmed ?Type No Home Medications 06/27/24 06/27/24 History Laboratory Tests 07/05/24 07/05/24 07/06/24 15:45 17:56 00:51 WBC RBC Hgb Hct MCV MCH MCHC RDW Plt Count MPV Sodium Potassium Chloride Carbon Dioxide Anion Gap BUN Creatinine Estim Creat Clear Calc Estimated GFR Glucose POC Capillary Glucose 130 H mg/dl 142 H mg/dl (65-105) (65-105) Calcium Phosphorus Triglycerides 173 H mg/dL (<150) 07/06/24 07/06/24 07/06/24 05:29 12:31 12:38 WBC 10.3 H K/mm3 (4.5-10.0) RBC 3.58 L M/mm3 (4.6-6.20) Hgb 11.2 L g/dL 11.0 L g/dL (14.0-18.0) (14.0-18.0) Hct 35.3 L % 35.8 L % (42.0-52.0) (42.0-52.0) MCV 98.6 fl (80-100) MCH 31.3 pg (26-34) MCHC 31.7 L g/dl (32-36) RDW 13.8 % (11.5-14.5) Plt Count 257 k/mm3 (150-375) MPV 11.6 H fl (7.4-10.4) Sodium 147 H mmol/L (137-145) Potassium 3.8 mmol/L (3.4-5.0) Chloride 117 H mmol/L (98-107) Carbon Dioxide 22 mmol/L (22-30) Anion Gap 8 mmol/L (4-12) BUN 20 mg/dL (9-20) Creatinine 0.99 mg/dL (0.7-1.3) Estim Creat Clear Calc 63 ml/min Estimated GFR > 60 (59 - ) Glucose 137 H mg/dL (65-110) POC Capillary Glucose 120 H mg/dl (65-105) Calcium 8.3 L mg/dL (8.4-10.2) Phosphorus 3.3 mg/dL (2.5-4.5) Triglycerides Patient hx anesthesia problems: none Family hx anesthesia problems: none Results Review: All pre-operative results and documents have been reviewed as part of the pre-operative evaluation. FORMERLY [facility], [facility] Family History Family History Mother Breast cancer Father Malignant neoplasm of prostate Social History Social History Smoking status: Current every day smoker Tobacco type: smokeless tobacco Smokeless tobacco user: chewing tobacco Alcohol intake: current Drinks per week: 70 Substance use: never Do You Feel Safe in your Home?: Yes Lack of Transportation: No Lack of Food: Never True Current Housing: I Have Housing Concerned About Future Housing: No Difficulty Paying Gas/Electric Bills: Decline to Answer Difficulty Paying for Meds: Decline to Answer Currently Unemployed: Decline to Answer Education: Decline to Answer Difficulty w/ Childcare or Family Care: Decline to Answer Spiritual care concerns: No Anes - Eval Final PreProcedure Day of Procedure 07/06/24 14:18 Patient weight: normal Heart: tachycardia Lungs: decreased breath sounds Airway: Mallampati scale class II Neurological: alert and oriented Last oral intake: >/= 8 hours ASA classification: III Emergent: no Anesthetic plan: proceed Anesthesia type and monitoring: general ETT and standard monitoring Results Review: All pre-operative results and documents have been reviewed as part of the pre-operative evaluation. Informed Consent: The patient's anesthetic plan and its attendant risks and benefits were discussed with the patient/family/POA. Questions were solicited and answers provided to the satisfaction of the patient/family/POA.
--- NOTE | 2024-07-06 14:22 | WPDHPUPDATE1 ---
History and Physical Update Update Date/Time: 07/06/24 14:22 Patient continues to have large amount of NG output--1-2L per day. Contrast SBFT yesterday and CT today show recurrent SBO. I do not feel this will resolve without laparotomy, adhesiolysis, possibly SB resection. I explained this to patient and his . All questions were answered. He agrees to go ahead. History and Physical has been reviewed, including an updated exam of the patient. There are NO changes in the patient's condition. Risks, benefits, and alternatives have been discussed and questions answered. Patient agrees to proceed with procedure.
[2024-07-06] MEDS: ceFAZolin 2 GM/D5W 50 ML 2 GM/50 ML BAG IVPB (14:27)
--- NOTE | 2024-07-06 14:32 | PCPTNOTE ---
The patient treatment was not able to be completed due to patient out of room for surgery. Will await orders to resume PT.
[2024-07-06] MEDS: fentaNYL CITRATE INJ (*CRX) 100 MCG/2 ML VIAL 25 MCG IV PUSH ×4 (18:11→18:25)
--- NOTE | 2024-07-06 18:38 | W.PM.PROC2 ---
Procedure Note - Detailed Date of Procedure 07/06/24 Pre-op Diagnosis Recurrent small-bowel obstruction Post-op Diagnosis Same (Recurrent small-bowel obstruction, bowel perforation) Procedure Performed Adhesiolysis, resection jejunal perforation with anastomosis Surgeon Zach Shipman MD [employer]essia Saldiv[facility] [employer] Anesthesia General Indications Patient had adhesiolysis 06/29/2024. He has had a nasogastric tube in place since then but has had no sign of ileus resolving. In fact his nasogastric tube suction is at least a 3671-8920 cc per day. He had a small bowel series yesterday and CT scan today that both suggest small-bowel obstruction has recurred. He is taken to surgery now for recurrent small-bowel obstruction. Findings Patient had numerous, dense, and difficult adhesions. The bowel was very dilated up to the transition point. The transition point was the intersection of 3 loops of bowel in the distal jejunum that were densely adherent to 1 another and causing recurrent obstruction. The bowel was very friable and serosal tears occurred at sites not where the surgeon was working. One of these serosal tears gave way to a full thickness perforation, again while working not in the area of that loop of bowel. In trying to quickly stem the flow of enteric content, the placement of a noncrushing bowel clamp created yet another all in the same general area as the original. This was eventually controlled. Fortunately the bowel was already eviscerated and most of the spillage went on the skin, not in the peritoneal cavity. The bowel was adherent in many areas. Typically these type of adhesions are very amenable to gentle finger dissection, however, this was not the case. Multiple areas required sharp dissection or cautery dissection to safely free the adhesions. A few other small serosal injuries were created, possibly 3. None of them were large and were simply oversewn to avoid possible full-thickness perforation during the patient's recovery. Description of Procedure Patient was taken to surgery and induced into general anesthesia. The abdomen is prepped and draped. The previous incision was reopened sharply. Dissection was carried down through the subcutaneous. There was some subcutaneous sutures which were removed as they were encountered. Once we reached the fascia, we looked for all the subcuticular and subcutaneous sutures that we could find and removed all of them. I then cut the PDS suture in the middle of the closure. The PDS was then slowly removed from the fascia both the cephalad end and the caudal end until all of it was removed. There was some cloudy fluid in the abdomen, this was suctioned away. I then gently explored the abdomen. The sigmoid colon was large and redundant, flopping over to the right side of the lower abdomen. The cecum appeared to be above the umbilicus. It was found as was the ileocecal junction. The ileum was decompressed and we followed it retrograde, taking down adhesions as they were encountered. Essentially all the adhesions involved the dilated bowel not the decompressed bowel. The bowel was very distended and was noted out exerting pressure on any adjacent structures. These adhesions were carefully taken down. Early on in the exploration, a transverse serosal injury occurred in the jejunum. Rather than try to repair this now, I chose to proceed with taking down the adhesions. Many of these adhesions or able to be taken down with sharp dissection either with Metzenbaum scissors or with the cautery on low setting. Some were able to be taken down with gentle finger dissection although this was quickly abandoned if the adhesions were not accepting. The adhesions would easily create a serosal injuries rather than come apart in this instance. As we were continuing the adhesiolysis, the previous serosal injury perforated full-thickness and a large amount of green enteric fluid came forth. Fortunately the bowel had been eviscerated by this point and most of it went on the abdomen and not in the peritoneal cavity. We quickly moved to cover or occlude the perforation. This was done and then adhesiolysis on either side of it was carried out to create enough of a space that noncrushing bowel clamps could be applied. While trying to apply a bowel clamp such as this, a hole on the other side of the bowel was created and this also started to have enteric leakage. We then successfully placed a clamp proximal and distal to these 2 openings stopping the enteric leakage. Any spillage, which was minimal, into the lower peritoneal cavity was suctioned away. We then continued the general adhesiolysis as the proximal 2/3 of the bowel was involved in the large mass of adhesions. Using sharp dissection and cautery, we were able to take down all the adhesions associated with the transition point of occlusion of the small intestine. No further enterotomies were made but there were 2 or 3 serosal injuries. We then continued and freed all of the adhesions of the small intestine up to the ligament of Treitz. This bowel was greatly dilated. I then milked the intestinal content retrograde into the stomach. With the assistance of our chief librarian music department, we evacuated the bowel content via the nasogastric tube. We decompressed the small intestine from the perforation on proximal to the ligament of Treitz in this fashion. The stomach was gently compressed to evacuate the intestinal contents. I now turned my attention to the area of the perforation. I started to close 1 of the holes but noted a nearby serosal injury and felt that the 2 repairs close to each other would be hazardous. The LigaSure was brought into the field. I used the TLC 75 to divide the small intestine proximally. The LigaSure was then used to divide the mesentery to the segment of jejunum with the bowel perforations. I then used the TLC 75 stapler again to divide the small intestine distally. Approximately 10 cm of small intestine were resected and passed off as a specimen labeled jejunal perforation. I then placed the 2 ends of bowel side by side. A [id number] but functional end-to-end anastomosis was then created using the TLC 75 stapler. The remaining bowel was closed using the TX 90 stapler. The bowel was dilated and quite friable. An opening occurred during the firing of the Tx 90. This was only about a cm in length. I closed this in 2 layers. The inner layer was bidirectional running inverting suture of 4-0 chromic. The outer layer was interrupted 4-0 silk. I also inverted most of the staple line with 4-0 silks. Finally I closed the mesenteric defect with 4-0 silks. We then career carefully searched the small intestine throughout its entirety for serosal injuries. None of these were large but about 3 or possibly 4 closed with interrupted Lembert suture of 4-0 silk. I went back and again search the entire small intestine. No additional areas of serosal tear or other potential problems were seen. We placed the small intestine back in the abdomen in gentle S shaped curves. I then irrigated the abdomen thoroughly with 3 L of warm saline. The omentum was positioned over the small intestine like an apron. The peritoneum was closed from inferior up to the semicircular line with running 0 chromic suture. The midline fascia was closed with bidirectional running 1. PDS suture. Some subcutaneous interrupted 3-0 Vicryl sutures were placed. The skin was then loosely approximated with cora. The wound was dressed with Xeroform gauze, fluffs, ABDs, and Medipore tape. The patient was awakened and taken to recovery in good condition. Sponge and needle counts were correct x2. Estimated Blood Loss -20 Urine Output 200 Drains Yes (Nasogastric tube, Eller catheter) Packing No Pathology Yes (Jejunal perforation) Complications Other complications (Jejunal perforation due to very difficult adhesions and friable dilated small intestine) Condition Stable Disposition PACU [facility] Billing Surgery - Charge Forward: Surgery Billing (Adhesiolysis, small-bowel resection with anastomosis)
[2024-07-06 18:44] LABS: Glucose Point of Care 84 mg/dl (65-105)
[2024-07-06] MEDS: PIPERACILLN/TAZ 3.375GM/NS50ML 3.375 GM/50 ML BAG IVPB (21:38)
[2024-07-06] MEDS: FAT EMULSIONS IV 20% 250 ML 20.83 ML IVPB (21:50)
--- NOTE | 2024-07-06 22:56 | ECG_ITS ---
Test Date: 2024-07-06 23:00:47 Measurements Intervals [place] Rate: 143 P: 27 DE: 115 QRS: -14 QRSD: 84 T: -5 QT: 280 QTc: 433 Interpretive Statements SINUS TACHYCARDIA WITH SHORT DE INTERVAL LEFT VENTRICULAR HYPERTROPHY INFERIOR INFARCT, AGE INDETERMINATE BORDERLINE ST-T WAVE ABNORMALITY- ANTEROLATERAL LEADS BASELINE WANDER- II, III, V3-V6 ABNORMAL ECG Compared to ECG 06/27/2024 08:52:18 HEART RATE HAS INCREASED Electronically Signed On 07-07-2024 06:51:27 CDT by Kar Bray D.O.
[2024-07-06 23:09] LABS: Glucose Point of Care 117 mg/dl (65-105)
[2024-07-06] MEDS: SODIUM CHLORIDE 0.9% IV 500 ML 999 ML (23:09)
--- NOTE | 2024-07-06 23:15 | PM.EVENT ---
Event Note Event Note Event Note: The nurse called rapid response due to Elevated HR and Hypotension. The patient recently underwent surgery for recurrent small bowel obstruction 2 times. His 1st surgery was performed on 06/29/2024, and the next was performed on 07/05/2024. Upon evaluation, the patient was tachycardic but could have a conversation without any difficulty. The patient denies any pain. His blood pressure is in the 90s/ 50s, with MAP around 66. Had temp as well as per nurse.I ordered a stat CT abdomen and pelvis, CBC CMP, and lactic acid. Patient tachycardia is possibly due to dehydration vs GI bleed vs sepsis. I started with a 250 mL bolus and reviewed his echocardiogram, which showed an ejection fraction greater than 70%. I will do another 1L bolus. His hemoglobin has consistently dropped from 07/02 to 0 07/06 from 15.2 to 11. Will continue to monitor.Advised to notify the surgeon
[2024-07-06 23:16] LABS: Mean Corpuscular HGB Conc 31.6 g/dl (32-36); Mean Corpuscular Hemoglobin 31.1 pg (26-34); Mean Corpuscular Volume 98.4 fl (80-100); Mean Platelet Volume 11.1 fl (7.4-10.4); Platelet Count Result 283 k/mm3 (150-375); Red Blood Count 3.86 M/mm3 (4.6-6.20); Red Cell Distribution Width 14.2 % (11.5-14.5); White Blood Count 7.9 K/mm3 (4.5-10.0)
[2024-07-06 23:27] LABS: Alanine Aminotransferase 11 U/L (6-50); Albumin Level 1.6 g/dL (3.5-5.1); Alkaline Phosphatase 32 U/L (38-126); Anion Gap 7 mmol/L (4-12); Aspartate Amino Transferase 17 U/L (17-59); Bilirubin,Total 0.8 mg/dL (0.2-1.3); Blood Urea Nitrogen 21 mg/dL (9-20); Calcium 6.5 mg/dL (8.4-10.2); Carbon Dioxide 17 mmol/L (22-30); Chloride 121 mmol/L (98-107); Estimated CRCL calculation 67 ml/min; Estimated Glomerular Filt Rate > 60; Glucose 111 mg/dL (65-110); Magnesium 1.7 mg/dL (1.6-2.3); Potassium 3.5 mmol/L (3.4-5.0); Sodium 145 mmol/L (137-145)
[2024-07-07] VITALS (22 sets, daily range): BP systolic 93–146; BP diastolic 57–75; PULSE 110–149; RESP 18–26; TEMP 36.1–37.4; O2SAT 94–98
[2024-07-07] MEDS: SODIUM CHLORIDE 0.9% IV 250 ML 999 ML IV CONT
[2024-07-07] MEDS: KCL 40 MEQ/D5/0.9% SOD CHL 1,000 ML 50 ML IV CONT
[2024-07-07] MEDS: SODIUM CHLORIDE 0.9% IV 1,000 ML 999 ML IV CONT ×2 (01:04→10:01)
--- NOTE | 2024-07-07 01:07 | PC.NURSE ---
pt HR spiked up to 140s bpm sustaining and blood pressure dropped to 88/58 which was a significant change compared to the vitals taken an hour before with an HR of 113bpm and a blood pressure of 103/58. 3 Calls were made to the hospitalist without success of reaching, pt then became less responsive, so a rapid response was called. Upon the hospitalist arrival and assessment orders were given to obtain and EKG and CT of the abdomen as well as give bolus fluids 500 mL to correct the HR and BP. Labs were also drawn at this time. No fever was observed at this time. Pt was taken by this RN down to CT and back to room 312 without any signs of distress from the patient. This RN spoke to the hospitalist about CT results which were negative, and was advised to give another 1L bolus as well as a one time dose of albumin 25%. The surgeon's exchange was also called to notify them of the situation and obtain any new orders. Surgeon wellness consultant agreed with hospitalist and to give another 500mL bolus after other orders were carried out. This RN will continue to monitor pt condition through rest of shift.
[2024-07-07] MEDS: PIPERACILLN/TAZ 3.375GM/NS50ML 3.375 GM/50 ML BAG IVPB ×4 (02:13→20:04)
[2024-07-07] MEDS: SODIUM CHLORIDE 0.9% IV 500 ML 999 ML IV CONT (02:54)
[2024-07-07] MEDS: ALBUMIN HUMAN 25% 25 GM/100 ML 100 ML IVPB (03:22)
[2024-07-07 05:44] LABS: Hemoglobin 10.5 g/dL (14.0-18.0); Mean Corpuscular HGB Conc 31.8 g/dl (32-36); Mean Corpuscular Hemoglobin 31.5 pg (26-34); Mean Corpuscular Volume 99.1 fl (80-100); Mean Platelet Volume 11.2 fl (7.4-10.4); Platelet Count Result 245 k/mm3 (150-375); Red Blood Count 3.33 M/mm3 (4.6-6.20); Red Cell Distribution Width 14.2 % (11.5-14.5); White Blood Count 11.4 K/mm3 (4.5-10.0)
[2024-07-07 05:57] LABS: Anion Gap 7 mmol/L (4-12); Blood Urea Nitrogen 25 mg/dL (9-20); Calcium 7.4 mg/dL (8.4-10.2); Carbon Dioxide 19 mmol/L (22-30); Chloride 119 mmol/L (98-107); Estimated CRCL calculation 52 ml/min; Estimated Glomerular Filt Rate > 60; Glucose 148 mg/dL (65-110); Phosphorus 3.5 mg/dL (2.5-4.5); Potassium 3.8 mmol/L (3.4-5.0); Sodium 145 mmol/L (137-145)
[2024-07-07] MEDS: CENTRAL LINE FLUSH 10 ML IV PUSH ×3 (06:01→20:14)
[2024-07-07] MEDS: THIAMINE HCL 200 MG/2 ML VIAL 100 MG IV PUSH (09:59)
[2024-07-07] MEDS: PANTOPRAZOLE SODIUM IV 40 MG VIAL IV PUSH (09:59)
[2024-07-07] MEDS: ENOXAPARIN 40 MG/0.4 ML SYRINGE SUB-Q (10:00)
[2024-07-07] MEDS: METOPROLOL TARTRATE INJ 5 MG/5 ML VIAL IV PUSH ×3 (10:01→20:13)
--- NOTE | 2024-07-07 10:14 | P.PNIM_ITS ---
Progress Note: A&P Assessment and Plan (1) Small bowel obstruction: Code(s): K56.609 - Unspecified intestinal obstruction, unspecified as to partial versus complete obstruction Status: Acute Assessment and Plan: Patient admitted after complaints of ABD pain with N/V. CT chest abdomen pelvis CTA was performed which showed no PE no aortic dissection. Abdomen pelvis showed small-bowel obstruction with the transition zone in the terminal ileum area. No evidence of appendicitis or diverticulitis. General surgery was consulted and patient was taken for exploratory laparotomy 06/29/2024 for repair serosal tears x2. IV fluids switched to Dextrose 5/water NA up to 149 and BS 68. Patient had pulled out his NG tube which was replaced under fluoroscopy, mild distention noted reporting having flatulence and bowel movement reported overnight, Tolerating TPN . Continue to encourage patient to get up and perform activity ordered PT/OT. reported he appeared more lethargic yesterday afternoon pain medication adjusted by surgery less lethargic today small bowel series showed persistent ileus versus small-bowel obstruction with contrast not having reach the distal most dilated loops . Patient post-op day 7 KUB with A continued postoperative SBO will need to continue NPO and NG tube * Patient going back for exploratory surgery due to ongoing SBO 07/06/2024 * NPO with Ice chips * NG tube to suction continued for decompression * pain control * ambulate as tolerated * Antiemetics * Will advance diet per surgery once bowel function has returned * Incentive spirometer * PT/OT * Continue serial KUB 07/07 * Postop day 1 from lysis of adhesions and resection of jejunal perforation with anastomosis * Continue NG tube to low intermittent suction, 1 L out since surgery yesterday--green bilious drainage * Continue pain control * Continue NPO status * Continue TPN and lipids (2) Chronic alcohol use: Code(s): F10.90 - Alcohol use, unspecified, uncomplicated Status: Chronic Assessment and Plan: Does not appear in withdrawal at this time will continue to monitor * Last drink 06/23 * Thiamine, folic acid, and multi-vitamin * PPI daily * librium PRN * CIWA daily * Monitor and replenish electrolytes as needed 07/07 * Currently tachycardic in the 130s with altered mental status and hallucinations * Continue CIWA protocol * Will hold off on Librium * Continue 5 minutes, folic acid, multivitamin * Last drink was on 06/23 however he drinks whiskey daily (3) Hypertension: Code(s): I10 - Essential (primary) hypertension Status: Acute Assessment and Plan: patient has been hypertensive systolics running between 180s to 160s. patient does not take any hypertensive medications at home will re-evaluate prior to discharge if patient will need oral antihypertensive medications at discharge after current acute issues are resolved. * I added hydralazine 20 mg IV push as needed for systolics greater than 160 * episodes of tachycardia surgery added metoprolol IV push PRN * BP per unit protocol 07/07 * Continue metoprolol 5 mg IV push q.4 hours for tachycardia * Continue hydralazine as needed for blood pressure control (4) ORTEGA (acute kidney injury): Code(s): N17.9 - Acute kidney failure, unspecified Status: Resolved Assessment and Plan: * Acute kidney injury CR 1.98 POA since resolved with IV fluids 07/07 * Resolved (5) Hypernatremia: Code(s): E87.0 - Hyperosmolality and hypernatremia Status: Resolved Assessment and Plan: * Patient now with hypernatremia at 149 discussed with surgery we will switch his IV fluids to dextrose 5 and water follow-up BMP later on today 07/07 * Resolved (6) Hyponatremia: Code(s): E87.1 - Hypo-osmolality and hyponatremia Status: Resolved Assessment and Plan: * Resolved likely secondary to dehydration and ETOH abuse patient was initially 130 POA resolved with IV fluids 07/07 * Resolved (7) Altered mental status: Code(s): R41.82 - Altered mental status, unspecified Status: Acute Assessment and Plan: Patient has had altered mental status ever since coming back from surgery yesterday. He is alert and oriented x1, will follow commands. Patient having hallucinations per nursing team. This could be from alcohol withdrawal verses polypharmacy versus unknown cause * Sodium is normal at 145, creatinine is normal at 1.20, blood sugars have been ranging 111-148, liver function was normal yesterday. * Patient has Eller catheter in place, UA was showing bacteria however urine culture was negative * Blood cultures are negative on preliminary read * Continue neuro checks * Continue CIWA protocol * Patient has not received any pain medications in the past 24 hours Time Spent With Patient Time with patient: 25 - 35 minutes Subjective Date/time seen: 07/07/24 10:14 Interval history: Interval summary: This is a 64-year-old male with a significant past medical history of who presented to the hospital on 06/27/2024 with abdominal pain With associated nausea and vomiting. Workup in the hospital included a chest abdomen and pelvis CTA which was negative for PE and no cardiopulmonary disease, however did show a small bowel obstruction with transition zone in the terminal ileum area. Head CT was negative. Cervical spine CT was negative for any acute osseous abnormality, showed multilevel degenerative disc disease. An NG tube was placed while in the ED and follow-up KUB showed the NG tube in good position. On 06/28/2024 patient had a small bowel x-ray which showed high-grade small-bowel obstruction. initial labs showed a hemoglobin of 18.5, INR 1.1, sodium 130, chloride 90, bicarb 20, anion gap 20, creatinine 1.98, EGFR 34, blood sugars ranging 171-218, lactic acid 2.5> 2.8> 1.2, magnesium 1.8, total bili 1.8, troponin 0.369> 0.4-2, proBNP 3980, TSH 3.940. UA was obtained which showed turbid urine appearance, greater than 1.045 urine specific gravity, 2+ urine protein, trace ketone, 1+ urine bilirubin, trace leukocytes, 11-20 urine RBC, 11-20 urine WBC, greater than 20 urine cast. Respiratory panel was negative for influenza a and B, RSV, COVID. Echocardiogram showed normal LV systolic funct ion with an estimated EF of greater than 70%, diastolic dysfunction, small pericardial effusion. General surgery was consulted and treated conservatively at 1st however patient was having high output through the NG tube and patient was sent for a small bowel x-ray on 07/05/2024 which showed persistent ileus versus small-bowel obstruction with contrast not having reach the distal most daily did loops of gas filled small bowel over the course of a 6 hour period of time. He had a repeat CT scan on 07/06/2024 which shown findings compatible with small bowel obstruction with transition point in the mid small bowel, small amount of ascites with mesenteric edema, small right pleural effusion with patchy bibasilar pulmonary consolidation. He was then taken to the OR on 07/06/[address] Shipman 4 lysis of adhesion with resection of the jejunal perforation with anastomosis. Patient was still having high output out of his NG tube postop with heart rate in the 130s and signs of dehydration. Another abdomen pelvis CT was obtained which shown small amount of pneumoperitoneum likely postoperative with evidence of recent midline incision, bowel distention/bowel obstruction is essentially resolved as compared to prior exam, small amount of ascites, small pleural effusions with bibasilar pulmonary edema /atelectasis. He was given 1.5 L bolus on 07/06/2024. He continues with NG tube and General surgery following. Subjective: Heart rate in the 130s and patient is showing hypovolemia on his intake and output. NG tube in place and has had 1000 mL out since surgery. is at bedside. Patient is confused with hallucinations. He is oriented x1. Baseline mental status is alert and oriented x3. Nursing reports that he has known alcohol abuse in the past and normally drinks whiskey on a daily basis. Last drink was reported on 06/23/24. Patient was reported to have 2BMs today. Review of Systems Review of Systems: All systems reviewed & are unremarkable except as noted in HPI and below Exam Narrative: General: In no acute distress Head: atraumatic, encephalopathy and confused today Eyes: PERRLA, sclera clear ENT: moist mucous membranes, nasal passages clear Neck: supple, no JVD, no adenopathy, trachea midline Cardiac: Normal S1 and S2. Tachycardic in the 120s to 130s, No murmur, gallops or friction rubs, peripheral pulses intact. Respiratory: Lungs clear to auscultation, no adventitious lung sounds, currently on room air Gastrointestinal: Upon, mildly distended, non-tender hypoactive bowel sounds. : Eller catheter in place draining clear yellow urine Extremities: moves all extremities well, no edema Skin: Midline incision covered with dressing Neuro: Alert and oriented x1, cranial nerves intact, no neuro deficits. Psych: Hallucinations Objective Data Vital Signs Vital Signs: Vital Signs - 24 hr 07/06/24 11:01 07/06/24 12:00 07/06/24 14:15 Temperature 98.5 F Pulse Rate 100 98 Respiratory Rate 16 Blood Pressure 162/89 H Pulse Oximetry 99 Oxygen Delivery Room Air Room Air Oxygen Flow Rate 07/06/24 17:54 07/06/24 18:00 07/06/24 18:15 Temperature 97.0 F L Pulse Rate 99 100 101 H Respiratory Rate 20 16 10 L Blood Pressure 129/78 136/87 131/70 Pulse Oximetry 98 96 96 Oxygen Delivery Simple Face Mask Simple Face Mask Room Air Oxygen Flow Rate 8 8 07/06/24 18:30 07/06/24 18:45 07/06/24 18:50 Temperature 98 F Pulse Rate 103 H 107 H 111 H Respiratory Rate 12 12 22 H Blood Pressure 120/82 136/71 136/70 Pulse Oximetry 92 99 100 Oxygen Delivery Room Air Room Air Oxygen Flow Rate 07/06/24 20:20 07/06/24 20:35 07/06/24 20:45 Temperature 99.4 F 101.7 F H Pulse Rate 147 H 156 H Respiratory Rate 20 20 Blood Pressure 113/87 115/79 Pulse Oximetry 98 100 Oxygen Delivery Room Air Oxygen Flow Rate 07/06/24 20:48 07/06/24 21:09 07/06/24 21:48 Temperature 101.1 F H 99.3 F 99.8 F H Pulse Rate 145 H Respiratory Rate 20 Blood Pressure 103/58 L Pulse Oximetry 94 Oxygen Delivery Oxygen Flow Rate 07/06/24 22:23 07/06/24 22:45 07/06/24 22:48 Temperature 99.5 F 99.6 F 99.6 F Pulse Rate 143 H 144 H 140 H Respiratory Rate 18 26 H 20 Blood Pressure 88/53 L 95/60 L 95/60 L Pulse Oximetry 95 97 97 Oxygen Delivery Room Air Oxygen Flow Rate 07/07/24 00:02 07/07/24 00:09 07/07/24 00:23 Temperature Pulse Rate 149 H 135 H Respiratory Rate Blood Pressure 93/58 L Pulse Oximetry Oxygen Delivery Oxygen Flow Rate 07/07/24 01:40 07/07/24 04:02 07/07/24 04:50 Temperature 98.1 F 98.3 F Pulse Rate 132 H 136 H 128 H Respiratory Rate 18 26 H Blood Pressure 94/57 L 124/68 Pulse Oximetry 97 96 Oxygen Delivery Oxygen Flow Rate 07/07/24 07:53 07/07/24 08:00 07/07/24 10:01 Temperature 97.0 F L Pulse Rate 130 H 132 H Respiratory Rate 24 H Blood Pressure 145/71 H Pulse Oximetry 96 96 Oxygen Delivery Room Air Oxygen Flow Rate Intake/Output Intake/Output: Intake & Output 07/04/24 07/05/24 07/06/24 07/07/24 23:59 23:59 23:59 23:59 Intake Total 3149.6 3533.8 2970.2 250 Output Total 3000 3200 1500 900 Balance 149.6 333.8 1470.2 -650 Meds/Results Medications: Active Medications Generic Name Dose Route Start Last Admin Trade Name Freq PRN Reason Stop Dose Admin Chlordiazepoxide HCl 25 mg 06/27/24 07:40 Chlordiazepoxide (*Crx) 25 Mg Capsule PO Q6H PRN Withdrawal Dextrose 12.5 gm 07/02/24 13:59 Dextrose 50% 25 Gm/50 Ml Syringe IV PUSH PRN PRN Hypoglycemia Protocol Enoxaparin Sodium 40 mg 06/29/24 09:00 07/07/24 10:00 Enoxaparin 40 Mg/0.4 Ml Syringe SUB-Q 40 mg DAILY VANDANA Administration Fentanyl Citrate 12.5 mcg 07/04/24 16:56 Fentanyl Citrate Inj (*Crx) 100 Mcg/2 Ml Vial IV PUSH Q2H PRN Breakthrough Pain Rated 4-6 or NPO Fentanyl Citrate 25 mcg 07/04/24 16:56 Fentanyl Citrate Inj (*Crx) 100 Mcg/2 Ml Vial IV PUSH Q2H PRN Breakthrough Pain Rated 7-10 or NPO Glucagon 1 mg 07/02/24 13:59 Glucagon For Inj 1 Mg Vial IM PRN PRN Hypoglycemia Protocol Glucose 15 gm 07/02/24 13:59 Glucose Oral Gel 15 Gm Of Glucse In 37.5 Gm Tube PO PRN PRN Hypoglycemia Protocol Hydralazine HCl 20 mg 07/02/24 10:27 07/05/24 15:10 Hydralazine Hcl 20 Mg/Ml Vial IV PUSH 20 mg Q6H PRN Administration Hypertension Dextrose 1,000 mls @ 50 mls/hr 07/02/24 13:56 Dextrose 10% IV CONT .Q20H PRN if PN is interrupted Dextrose 1,000 mls @ 100 mls/hr 07/02/24 13:59 Dextrose 5% 1,000 Ml IVPB PRN PRN Hypoglycemia Protocol Potassium Chloride/Dextrose/Sod Cl 1,000 mls @ 80 mls/hr 07/03/24 07:55 07/07/24 00:00 Kcl 40 Meq/D5ns IV CONT 50 mls/hr .[id number] VANDANA Administration Ibuprofen 800 mg in 200 mls @ 400 mls/hr 07/06/24 18:50 07/06/24 21:18 Caldolor 800 Mg/200 Ml IVPB Infused Q6H PRN Infusion Breakthrough Pain Rated 1-3 or NPO Piperacillin/Tazobactam/Dextrose 3.375 gm in 50 mls @ 100 mls/hr 07/06/24 20:00 07/07/24 09:58 Zosyn 3.375 Gm/Ns 50 Ml IVPB 100 mls/hr Q6H VANDANA Administration Multivitamins 1.25 ml/ 1,002.5 mls @ 70 mls/hr 07/06/24 21:00 07/06/24 21:49 Multivitamins 1.25 ml/ Amino IV CONT 70 mls/hr Acids/Electrolytes/Dextrose .[id number] VANDANA Administration Protocol Fat Emulsion Intravenous 250 mls @ 20.833 mls/hr 07/06/24 21:00 07/06/24 21:50 Lipids 20% IVPB 20.83 mls/hr Q24H VANDANA Administration Sodium Chloride 1,000 mls @ 999 mls/hr 07/07/24 09:06 07/07/24 10:01 Normal Saline Iv IV CONT 07/07/24 10:06 999 mls/hr .Q1H1M ONE Administration Insulin Human Regular 0 units 07/02/24 18:00 07/07/24 06:02 Insulin Human Regular (*Bkc) 100 Units/Ml SUB-Q Not Given Q6HR [facility] Protocol Metoprolol Tartrate 5 mg 07/02/24 08:51 07/07/24 10:01 Metoprolol Tartrate Inj 5 Mg/5 Ml Vial IV PUSH 5 mg Q4H PRN Administration Tachycardia Naloxone HCl 0.1 mg 07/06/24 18:50 Naloxone Hcl 0.4 Mg/Ml Vial IV PUSH Q2M PRN Opiate Reversal Ondansetron HCl 4 mg 06/27/24 08:21 07/05/24 10:58 Ondansetron Inj 4 Mg/2 Ml Vial IV PUSH 4 mg Q4H PRN Administration Nausea Pantoprazole Sodium 40 mg 06/28/24 09:00 07/07/24 09:59 Pantoprazole Sodium Iv 40 Mg Vial IV PUSH 40 mg QAM VANDANA Administration Sodium Chloride 10 ml 07/02/24 22:00 07/07/24 06:01 Central Line Flush IV PUSH 10 ml Q8HR VANDANA Administration Sodium Chloride 10 ml 07/02/24 15:38 07/04/24 14:13 Central Line Flush IV PUSH 10 ml PRN PRN Administration with TPN bag changes Sodium Chloride 20 ml 07/02/24 15:38 Central Line Flush IV PUSH PRN PRN after blood draws Thiamine HCl 100 mg 06/27/24 09:00 07/07/24 09:59 Thiamine Hcl 200 Mg/2 Ml Vial IV PUSH 100 mg DAILY VANDANA Administration Radiology Results: ITS Impressions Chest/Abdomen/Pelvis CTA 06/27/24 06:17 IMPRESSION: CHEST: 1. No pulmonary embolism. No aortic dissection 2. No acute cardiopulmonary pathology. ABDOMEN/PELVIS: 1. Small bowel obstruction with the transition zone in the terminal ileum area. Clinical correlation advised. 2. No evidence of appendicitis, or diverticulitis. Head CT 06/27/24 06:59 IMPRESSION: No acute intracranial findings. Cervical Spine CT 06/27/24 07:58 IMPRESSION: No acute osseous abnormality cervical spine. Multilevel degenerative disc disease. NG Tube Placement 07/02/24 07:18 IMPRESSION: Fluoroscopy used during NG tube placement in the stomach. Chest X-Ray 07/02/24 15:30 IMPRESSION: 1. Right PICC line tip at the caudal superior vena cava. 2. Unchanged mild streaky bibasilar atelectasis and discoid atelectasis at the superior segment of the right lower lobe. Small Bowel X-Ray 07/05/24 16:01 IMPRESSION: 1. Persistent ileus versus small bowel obstruction with contrast not having reached the distalmost dilated loops of gas-filled small bowel over the course of 6 hours. Abdomen X-Ray 07/06/24 06:36 Impression: Small bowel obstruction with NG tube in place. Abdomen/Pelvis CT 07/07/24 05:20 Impression: Small amount of pneumoperitoneum, likely postoperative with evidence of recent midline incision stapling since prior exam. Correlate with surgical history. Bowel distention/bowel obstruction is essentially resolved as compared to prior exam. Small bowel evaluation is limited on the current exam due to extensive matting together of bowel loops. Small amount of ascites. Small pleural effusions with bibasilar pulmonary edema/atelectasis versus pneumonia. Correlate clinically. Labs Labs: Laboratory Results - last 24 hr 07/06/24 07/06/24 07/06/24 12:31 12:38 18:43 WBC RBC Hgb 11.0 L Hct 35.8 L MCV MCH MCHC RDW Plt Count MPV Sodium Potassium Chloride Carbon Dioxide Anion Gap BUN Creatinine Estim Creat Clear Calc Estimated GFR Glucose POC Capillary Glucose 120 H 84 Calcium Phosphorus Magnesium Total Bilirubin AST ALT Alkaline Phosphatase Total Protein Albumin 07/06/24 07/06/24 07/07/24 22:49 23:09 05:27 WBC 7.9 11.4 H RBC 3.86 L 3.33 L Hgb 12.0 L 10.5 L Hct 38.0 L 33.0 L MCV 98.4 99.1 MCH 31.1 31.5 MCHC 31.6 L 31.8 L RDW 14.2 14.2 Plt Count 283 245 MPV 11.1 H 11.2 H Sodium 145 145 Potassium 3.5 3.8 Chloride 121 H 119 H Carbon Dioxide 17 L 19 L Anion Gap 7 7 BUN 21 H 25 H Creatinine 0.92 1.20 Estim Creat Clear Calc 67 52 Estimated GFR > 60 > 60 Glucose 111 H 148 H POC Capillary Glucose 117 H Calcium 6.5 L 7.4 L Phosphorus 3.0 3.5 Magnesium 1.7 Total Bilirubin 0.8 AST 17 ALT 11 Alkaline Phosphatase 32 L Total Protein 4.0 L Albumin 1.6 L Quality VTE Prophylaxis VTE prophylaxis: pharmacologic ordered
[2024-07-07] MEDS: AMINO ACIDS 5%/D15W/E-LYTES/CA 1,000 ML with MULTIVITAMINS-12 INJ VIAL 1 1.25 ML, MULTI... 70 ML IV CONT (10:54)
[2024-07-07 11:46] LABS: Glucose Point of Care 137 mg/dl (65-105)
[2024-07-07] MEDS: KCL 40 MEQ/D5/0.9% SOD CHL 1,000 ML 80 ML IV CONT (11:46)
[2024-07-07 12:56] LABS: Triglycerides 203 mg/dL (<150)
--- NOTE | 2024-07-07 15:30 | PC.NURSE ---
Surgical dressing remains intact. RAZIA Rodriguez at bedside.
--- NOTE | 2024-07-07 16:07 | PM.PNGS ---
Progress Note: A&P Assessment and Plan (1) Small bowel obstruction: Code(s): K56.609 - Unspecified intestinal obstruction, unspecified as to partial versus complete obstruction Status: Acute Assessment and Plan: S/p adhesiolysis and small-bowel resection yesterday. Patient was hypotensive and tachycardic overnight. He responded well to IV fluid boluses. Tachycardia and blood pressure improved by this morning and are now more stable. Hemoglobin appears stable. No signs of active bleeding. We will continue to monitor closely. Continue maintenance IV fluids along with TPN. Awaiting for return of bowel function. Continue NG tube decompression and bowel rest. Repeat labs tomorrow. (2) Protein-calorie malnutrition, severe: Code(s): E43 - Unspecified severe protein-calorie malnutrition Status: Acute Assessment and Plan: Continue TPN. (3) Chronic alcohol use: Code(s): F10.90 - Alcohol use, unspecified, uncomplicated Status: Chronic Assessment and Plan: Patient having some delirium today per nursing. He is in and out of confusion. He is not receiving any pain medication and Librium continues to be on hold. Unclear etiology for the fluctuation in his mentation Plan I have discussed the patient's case and plan of care with Dr. Shipman. Subjective Subjective Date/Time Seen: 07/07/24 16:07 Post Op day: 1 Patient reports: no flatus, no bowel movement (One dark maroon bowel movement today per nursing) and afebrile Interval history: Patient confused today per his who is at the bedside. He is oriented times 1-2. He reports feeling sore today when getting moved in the bed or turned to be cleaned up. No other specific complaints. Exam Const: General: comfortable and no acute distress Orientation/consciousness: oriented to person and oriented to place GI: Inspection: distended GI Palp: Yes Soft to palpation, Yes Tenderness to palpation present (GI), No Guarding due to palpation present (GI) and No Rebound tenderness present Auscultation: absent bowel sounds Urinary Catheter: Urinary Catheter: patent and draining and urine clear Extrem: General: no calf tenderness and no edema Objective Data Vital Signs Vital Signs: Vital Signs - 24 hr 07/06/24 17:54 07/06/24 18:00 07/06/24 18:15 Temperature 97.0 F L Pulse Rate 99 100 101 H Respiratory Rate 20 16 10 L Blood Pressure 129/78 136/87 131/70 Pulse Oximetry 98 96 96 Oxygen Delivery Simple Face Mask Simple Face Mask Room Air Oxygen Flow Rate 8 8 07/06/24 18:30 07/06/24 18:45 07/06/24 18:50 Temperature 98 F Pulse Rate 103 H 107 H 111 H Respiratory Rate 12 12 22 H Blood Pressure 120/82 136/71 136/70 Pulse Oximetry 92 99 100 Oxygen Delivery Room Air Room Air Oxygen Flow Rate 07/06/24 20:20 07/06/24 20:35 07/06/24 20:45 Temperature 99.4 F 101.7 F H Pulse Rate 147 H 156 H Respiratory Rate 20 20 Blood Pressure 113/87 115/79 Pulse Oximetry 98 100 Oxygen Delivery Room Air Oxygen Flow Rate 07/06/24 20:48 07/06/24 21:09 07/06/24 21:48 Temperature 101.1 F H 99.3 F 99.8 F H Pulse Rate 145 H Respiratory Rate 20 Blood Pressure 103/58 L Pulse Oximetry 94 Oxygen Delivery Oxygen Flow Rate 07/06/24 22:23 07/06/24 22:45 07/06/24 22:48 Temperature 99.5 F 99.6 F 99.6 F Pulse Rate 143 H 144 H 140 H Respiratory Rate 18 26 H 20 Blood Pressure 88/53 L 95/60 L 95/60 L Pulse Oximetry 95 97 97 Oxygen Delivery Room Air Oxygen Flow Rate 07/07/24 00:02 07/07/24 00:09 07/07/24 00:23 Temperature Pulse Rate 149 H 135 H Respiratory Rate Blood Pressure 93/58 L Pulse Oximetry Oxygen Delivery Oxygen Flow Rate 07/07/24 01:40 07/07/24 04:02 07/07/24 04:50 Temperature 98.1 F 98.3 F Pulse Rate 132 H 136 H 128 H Respiratory Rate 18 26 H Blood Pressure 94/57 L 124/68 Pulse Oximetry 97 96 Oxygen Delivery Oxygen Flow Rate 07/07/24 07:53 07/07/24 08:00 07/07/24 09:48 Temperature 97.0 F L Pulse Rate 130 H 132 H Respiratory Rate 24 H Blood Pressure 145/71 H Pulse Oximetry 96 96 Oxygen Delivery Room Air Oxygen Flow Rate 07/07/24 10:01 07/07/24 10:45 07/07/24 11:58 Temperature 98.2 F Pulse Rate 132 H 113 H 122 H Respiratory Rate 18 Blood Pressure 143/75 H Pulse Oximetry 94 Oxygen Delivery Oxygen Flow Rate 07/07/24 12:00 07/07/24 15:32 Temperature Pulse Rate 123 H 134 H Respiratory Rate Blood Pressure Pulse Oximetry Oxygen Delivery Oxygen Flow Rate Intake/Output Intake/Output: Intake & Output 07/04/24 07/05/24 07/06/24 07/07/24 23:59 23:59 23:59 23:59 Intake Total 3149.6 3533.8 2970.2 2054.1 Output Total 3000 3200 1500 1700 Balance 149.6 333.8 1470.2 354.1 Meds/Results Medications: Active Medications Generic Name Dose Route Start Last Admin Trade Name Freq PRN Reason Stop Dose Admin Chlordiazepoxide HCl 25 mg 06/27/24 07:40 Chlordiazepoxide (*Crx) 25 Mg Capsule PO Q6H PRN Withdrawal Dextrose 12.5 gm 07/02/24 13:59 Dextrose 50% 25 Gm/50 Ml Syringe IV PUSH PRN PRN Hypoglycemia Protocol Enoxaparin Sodium 40 mg 06/29/24 09:00 07/07/24 10:00 Enoxaparin 40 Mg/0.4 Ml Syringe SUB-Q 40 mg DAILY VANDANA Administration Fentanyl Citrate 12.5 mcg 07/04/24 16:56 Fentanyl Citrate Inj (*Crx) 100 Mcg/2 Ml Vial IV PUSH Q2H PRN Breakthrough Pain Rated 4-6 or NPO Fentanyl Citrate 25 mcg 07/04/24 16:56 Fentanyl Citrate Inj (*Crx) 100 Mcg/2 Ml Vial IV PUSH Q2H PRN Breakthrough Pain Rated 7-10 or NPO Glucagon 1 mg 07/02/24 13:59 Glucagon For Inj 1 Mg Vial IM PRN PRN Hypoglycemia Protocol Glucose 15 gm 07/02/24 13:59 Glucose Oral Gel 15 Gm Of Glucse In 37.5 Gm Tube PO PRN PRN Hypoglycemia Protocol Hydralazine HCl 20 mg 07/02/24 10:27 07/05/24 15:10 Hydralazine Hcl 20 Mg/Ml Vial IV PUSH 20 mg Q6H PRN Administration Hypertension Dextrose 1,000 mls @ 50 mls/hr 07/02/24 13:56 Dextrose 10% IV CONT .Q20H PRN if PN is interrupted Dextrose 1,000 mls @ 100 mls/hr 07/02/24 13:59 Dextrose 5% 1,000 Ml IVPB PRN PRN Hypoglycemia Protocol Potassium Chloride/Dextrose/Sod Cl 1,000 mls @ 80 mls/hr 07/03/24 07:55 07/07/24 11:47 Kcl 40 Meq/D5ns IV CONT Not Given .[id number] VANDANA Ibuprofen 800 mg in 200 mls @ 400 mls/hr 07/06/24 18:50 07/06/24 21:18 Caldolor 800 Mg/200 Ml IVPB Infused Q6H PRN Infusion Breakthrough Pain Rated 1-3 or NPO Piperacillin/Tazobactam/Dextrose 3.375 gm in 50 mls @ 100 mls/hr 07/06/24 20:00 07/07/24 15:29 Zosyn 3.375 Gm/Ns 50 Ml IVPB 100 mls/hr Q6H VANDANA Administration Multivitamins 1.25 ml/ 1,002.5 mls @ 70 mls/hr 07/06/24 21:00 07/07/24 10:54 Multivitamins 1.25 ml/ Amino IV CONT 70 mls/hr Acids/Electrolytes/Dextrose .[id number] VANDANA Administration Protocol Fat Emulsion Intravenous 250 mls @ 20.833 mls/hr 07/06/24 21:00 07/07/24 14:21 Lipids 20% IVPB Infused Q24H VANDANA Infusion Insulin Human Regular 0 units 07/02/24 18:00 07/07/24 14:20 Insulin Human Regular (*Bkc) 100 Units/Ml SUB-Q Not Given Q6HR [facility] Protocol Lorazepam 2 mg 07/07/24 16:01 Lorazepam Inj (*Crx) 2 Mg/Ml Vial IV PUSH Q4H PRN CIWA 8-15 Metoprolol Tartrate 5 mg 07/02/24 08:51 07/07/24 15:32 Metoprolol Tartrate Inj 5 Mg/5 Ml Vial IV PUSH 5 mg Q4H PRN Administration Tachycardia Naloxone HCl 0.1 mg 07/06/24 18:50 Naloxone Hcl 0.4 Mg/Ml Vial IV PUSH Q2M PRN Opiate Reversal Ondansetron HCl 4 mg 06/27/24 08:21 07/05/24 10:58 Ondansetron Inj 4 Mg/2 Ml Vial IV PUSH 4 mg Q4H PRN Administration Nausea Pantoprazole Sodium 40 mg 06/28/24 09:00 07/07/24 09:59 Pantoprazole Sodium Iv 40 Mg Vial IV PUSH 40 mg QAM VANDANA Administration Sodium Chloride 10 ml 07/02/24 22:00 07/07/24 14:21 Central Line Flush IV PUSH 10 ml Q8HR VANDANA Administration Sodium Chloride 10 ml 07/02/24 15:38 07/04/24 14:13 Central Line Flush IV PUSH 10 ml PRN PRN Administration with TPN bag changes Sodium Chloride 20 ml 07/02/24 15:38 Central Line Flush IV PUSH PRN PRN after blood draws Thiamine HCl 100 mg 06/27/24 09:00 07/07/24 09:59 Thiamine Hcl 200 Mg/2 Ml Vial IV PUSH 100 mg DAILY VANDANA Administration Radiology Results: ITS Impressions Chest/Abdomen/Pelvis CTA 06/27/24 06:17 IMPRESSION: CHEST: 1. No pulmonary embolism. No aortic dissection 2. No acute cardiopulmonary pathology. ABDOMEN/PELVIS: 1. Small bowel obstruction with the transition zone in the terminal ileum area. Clinical correlation advised. 2. No evidence of appendicitis, or diverticulitis. Head CT 06/27/24 06:59 IMPRESSION: No acute intracranial findings. Cervical Spine CT 06/27/24 07:58 IMPRESSION: No acute osseous abnormality cervical spine. Multilevel degenerative disc disease. NG Tube Placement 07/02/24 07:18 IMPRESSION: Fluoroscopy used during NG tube placement in the stomach. Chest X-Ray 07/02/24 15:30 IMPRESSION: 1. Right PICC line tip at the caudal superior vena cava. 2. Unchanged mild streaky bibasilar atelectasis and discoid atelectasis at the superior segment of the right lower lobe. Small Bowel X-Ray 07/05/24 16:01 IMPRESSION: 1. Persistent ileus versus small bowel obstruction with contrast not having reached the distalmost dilated loops of gas-filled small bowel over the course of 6 hours. Abdomen X-Ray 07/06/24 06:36 Impression: Small bowel obstruction with NG tube in place. Abdomen/Pelvis CT 07/07/24 05:20 Impression: Small amount of pneumoperitoneum, likely postoperative with evidence of recent midline incision stapling since prior exam. Correlate with surgical history. Bowel distention/bowel obstruction is essentially resolved as compared to prior exam. Small bowel evaluation is limited on the current exam due to extensive matting together of bowel loops. Small amount of ascites. Small pleural effusions with bibasilar pulmonary edema/atelectasis versus pneumonia. Correlate clinically. Labs Labs: Laboratory Results - last 24 hr 07/06/24 07/06/24 07/06/24 18:43 22:49 23:09 WBC 7.9 RBC 3.86 L Hgb 12.0 L Hct 38.0 L MCV 98.4 MCH 31.1 MCHC 31.6 L RDW 14.2 Plt Count 283 MPV 11.1 H Sodium 145 Potassium 3.5 Chloride 121 H Carbon Dioxide 17 L Anion Gap 7 BUN 21 H Creatinine 0.92 Estim Creat Clear Calc 67 Estimated GFR > 60 Glucose 111 H POC Capillary Glucose 84 117 H Calcium 6.5 L Phosphorus 3.0 Magnesium 1.7 Total Bilirubin 0.8 AST 17 ALT 11 Alkaline Phosphatase 32 L Total Protein 4.0 L Albumin 1.6 L Triglycerides 07/07/24 07/07/24 07/07/24 05:23 05:27 11:43 WBC 11.4 H RBC 3.33 L Hgb 10.5 L Hct 33.0 L MCV 99.1 MCH 31.5 MCHC 31.8 L RDW 14.2 Plt Count 245 MPV 11.2 H Sodium 145 Potassium 3.8 Chloride 119 H Carbon Dioxide 19 L Anion Gap 7 BUN 25 H Creatinine 1.20 Estim Creat Clear Calc 52 Estimated GFR > 60 Glucose 148 H POC Capillary Glucose 137 H Calcium 7.4 L Phosphorus 3.5 Magnesium Total Bilirubin AST ALT Alkaline Phosphatase Total Protein Albumin Triglycerides 203 H
[2024-07-07] MEDS: SODIUM CHLORIDE 0.9% IV 500 ML IV CONT (16:47)
[2024-07-07 17:53] LABS: Glucose Point of Care 134 mg/dl (65-105)
[2024-07-07] MEDS: LORazepam INJ (*CRX) 2 MG/ML VIAL IV PUSH (18:17)
[2024-07-07] MEDS: FAT EMULSIONS IV 20% 250 ML 20.83 ML IVPB (20:05)
[2024-07-07] MEDS: ONDANSETRON INJ 4 MG/2 ML VIAL IV PUSH (20:13)
[2024-07-07] MEDS: IBUPROFEN IV 800 MG/200 ML 800 MG/200 ML BAG 400 MG IVPB (22:53)
[2024-07-08] VITALS (13 sets, daily range): BP systolic 146–166; BP diastolic 81–89; PULSE 82–113; RESP 16–20; TEMP 36.1–37.1; O2SAT 94–97
[2024-07-08 00:06] LABS: Glucose Point of Care 131 mg/dl (65-105)
[2024-07-08] MEDS: PIPERACILLN/TAZ 3.375GM/NS50ML 3.375 GM/50 ML BAG IVPB ×4 (01:50→20:24)
[2024-07-08] MEDS: AMINO ACIDS 5%/D15W/E-LYTES/CA 1,000 ML with MULTIVITAMINS-12 INJ VIAL 1 1.25 ML, MULTI... 70 ML IV CONT ×2 (02:00→15:04)
[2024-07-08 05:15] LABS: Glucose Point of Care 143 mg/dl (65-105)
[2024-07-08] MEDS: KCL 40 MEQ/D5/0.9% SOD CHL 1,000 ML 80 ML IV CONT (05:41)
[2024-07-08] MEDS: CENTRAL LINE FLUSH 10 ML IV PUSH ×3 (05:42→20:46)
[2024-07-08] MEDS: IBUPROFEN IV 800 MG/200 ML 800 MG/200 ML BAG 400 MG IVPB ×2 (05:42→22:00)
[2024-07-08 05:52] LABS: Hematocrit 30.1 % (42.0-52.0); Hemoglobin 9.4 g/dL (14.0-18.0); Mean Corpuscular HGB Conc 31.2 g/dl (32-36); Mean Corpuscular Hemoglobin 30.8 pg (26-34); Mean Corpuscular Volume 98.7 fl (80-100); Mean Platelet Volume 11.2 fl (7.4-10.4); Platelet Count Result 249 k/mm3 (150-375); Red Blood Count 3.05 M/mm3 (4.6-6.20); Red Cell Distribution Width 14.4 % (11.5-14.5); White Blood Count 10.5 K/mm3 (4.5-10.0)
[2024-07-08 06:04] LABS: Alanine Aminotransferase 8 U/L (6-50); Albumin Level 2.1 g/dL (3.5-5.1); Alkaline Phosphatase 37 U/L (38-126); Anion Gap 8 mmol/L (4-12); Aspartate Amino Transferase 16 U/L (17-59); Bilirubin,Total 0.4 mg/dL (0.2-1.3); Blood Urea Nitrogen 21 mg/dL (9-20); Calcium 7.6 mg/dL (8.4-10.2); Carbon Dioxide 19 mmol/L (22-30); Chloride 123 mmol/L (98-107); Estimated CRCL calculation 54 ml/min; Estimated Glomerular Filt Rate > 60; Glucose 113 mg/dL (65-110); Magnesium 2.5 mg/dL (1.6-2.3); Phosphorus 3.6 mg/dL (2.5-4.5); Potassium 3.2 mmol/L (3.4-5.0); Sodium 150 mmol/L (137-145)
[2024-07-08 06:45] LABS: Band Neutrophils Percent 17 % (0-6); Eosinophils Absolute Manual 0.21 K/mm3 (0.02-0.50); Eosinophils Percent Manual 2 % (0-4); Lymphocytes Absolute Manual 0.63 K/mm3 (1.1-4.5); Lymphocytes Percent Manual 6 % (18-44); Monocytes Percent Manual 1 % (3-9); Neutrophils Absolute Manual 9.55 K/mm3 (1.3-6.7); Neutrophils Percent Manual 74 % (46-73); Platelet Estimate Adequate (Adequate); Schistocytes None Seen; Total Cells Counted 100
[2024-07-08] MEDS: fentaNYL CITRATE INJ (*CRX) 100 MCG/2 ML VIAL 25 MCG IV PUSH ×2 (07:09→22:05)
--- NOTE | 2024-07-08 08:06 | PM.PNGS ---
Progress Note: A&P Assessment and Plan (1) Small bowel obstruction: Code(s): K56.609 - Unspecified intestinal obstruction, unspecified as to partial versus complete obstruction Status: Acute Assessment and Plan: Patient having some bowel movements and has bowel sounds. Abdomen very tender and he has not been taking any of his pain medication. Wound has some periumbilical drainage, may need to remove the staple or 2. No sign of acute intra-abdominal postoperative process (2) Protein-calorie malnutrition, severe: Code(s): E43 - Unspecified severe protein-calorie malnutrition Status: Acute Assessment and Plan: Continue TPN. (3) Chronic alcohol use: Code(s): F10.90 - Alcohol use, unspecified, uncomplicated Status: Chronic Assessment and Plan: Mental status remains diminished. Advised nursing to go ahead and give him 25 mcg of fentanyl. He did receive 2 mg of lorazepam at 6:00 p.m. but I would not expect this to be continuing to make him so somnolent and lethargic. Etiology unclear to me but patient will need to take analgesics or possibility of pneumonia, DVT, other complications are increased. Subjective Subjective Date/Time Seen: 07/08/24 08:06 Post Op day: 2 Patient reports: still having pain, bowel movement and other (Lethargic and somnolent, oriented times 0) Interval history: Patient received 1 dose of 2 mg lorazepam about 6:00 p.m. last night for potential withdrawal symptoms. Otherwise has not been taking pain medication. Exam Const: General: comfortable and awake Orientation/consciousness: No oriented to person, No oriented to place, No oriented to time, confusion and lethargic GI: Inspection: non-distended and incision (Serosanguineous drainage at the umbilicus, small amount) GI Palp: Yes Firmness to palpation present (GI), Yes Tenderness to palpation present (GI) (Diffusely tender with guarding) and Yes Guarding due to palpation present (GI) Auscultation: normal bowel sounds Objective Data Vital Signs Vital Signs: Vital Signs - 24 hr 07/07/24 09:48 07/07/24 10:01 07/07/24 10:45 Temperature Pulse Rate 132 H 132 H 113 H Pulse Rate [Pedal (Dorsalis Pedis)] Respiratory Rate Blood Pressure Pulse Oximetry Oxygen Delivery 07/07/24 11:58 07/07/24 12:00 07/07/24 15:00 Temperature 36.8 C Pulse Rate 122 H 123 H Pulse Rate [Pedal (Dorsalis Pedis)] 133 H Respiratory Rate 18 Blood Pressure 143/75 H 143/75 H Pulse Oximetry 94 Oxygen Delivery 07/07/24 15:32 07/07/24 16:00 07/07/24 16:01 Temperature Pulse Rate 134 H 110 H Pulse Rate [Pedal (Dorsalis Pedis)] 119 H Respiratory Rate Blood Pressure 125/66 Pulse Oximetry Oxygen Delivery 07/07/24 16:28 07/07/24 18:18 07/07/24 20:00 Temperature 37.3 C Pulse Rate 111 H Pulse Rate [Pedal (Dorsalis Pedis)] 123 H 123 H Respiratory Rate 18 Blood Pressure 125/66 Pulse Oximetry 96 Oxygen Delivery 07/07/24 20:00 07/07/24 20:00 07/07/24 20:13 Temperature Pulse Rate 124 H 126 H Pulse Rate [Pedal (Dorsalis Pedis)] Respiratory Rate Blood Pressure Pulse Oximetry Oxygen Delivery Room Air 07/07/24 20:35 07/08/24 00:00 07/08/24 04:00 Temperature 37.4 C Pulse Rate 126 H 113 H Pulse Rate [Pedal (Dorsalis Pedis)] 106 H Respiratory Rate 18 Blood Pressure 146/69 H Pulse Oximetry 98 Oxygen Delivery 07/08/24 04:00 07/08/24 05:55 Temperature 37.1 C Pulse Rate 110 H 112 H Pulse Rate [Pedal (Dorsalis Pedis)] Respiratory Rate 16 Blood Pressure 159/81 H Pulse Oximetry 94 Oxygen Delivery tachycardia improving but still 110-120 per minute. Intake/Output Intake/Output: Intake & Output 07/05/24 07/06/24 07/07/24 07/08/24 23:59 23:59 23:59 23:59 Intake Total 3533.8 2970.2 2354.1 2252.5 Output Total 3200 1500 2750 1850 Balance 333.8 1470.2 -395.9 402.5 Urine output much better, blood pressure better, has already had 900 cc out nasogastric tube since midnight. Meds/Results Medications: Active Medications Generic Name Dose Route Start Last Admin Trade Name Freq PRN Reason Stop Dose Admin Chlordiazepoxide HCl 25 mg 06/27/24 07:40 Chlordiazepoxide (*Crx) 25 Mg Capsule PO Q6H PRN Withdrawal Dextrose 12.5 gm 07/02/24 13:59 Dextrose 50% 25 Gm/50 Ml Syringe IV PUSH PRN PRN Hypoglycemia Protocol Enoxaparin Sodium 40 mg 06/29/24 09:00 07/07/24 10:00 Enoxaparin 40 Mg/0.4 Ml Syringe SUB-Q 40 mg DAILY VANDANA Administration Fentanyl Citrate 12.5 mcg 07/04/24 16:56 Fentanyl Citrate Inj (*Crx) 100 Mcg/2 Ml Vial IV PUSH Q2H PRN Breakthrough Pain Rated 4-6 or NPO Fentanyl Citrate 25 mcg 07/04/24 16:56 07/08/24 07:09 Fentanyl Citrate Inj (*Crx) 100 Mcg/2 Ml Vial IV PUSH 25 mcg Q2H PRN Administration Breakthrough Pain Rated 7-10 or NPO Glucagon 1 mg 07/02/24 13:59 Glucagon For Inj 1 Mg Vial IM PRN PRN Hypoglycemia Protocol Glucose 15 gm 07/02/24 13:59 Glucose Oral Gel 15 Gm Of Glucse In 37.5 Gm Tube PO PRN PRN Hypoglycemia Protocol Hydralazine HCl 20 mg 07/02/24 10:27 07/05/24 15:10 Hydralazine Hcl 20 Mg/Ml Vial IV PUSH 20 mg Q6H PRN Administration Hypertension Dextrose 1,000 mls @ 50 mls/hr 07/02/24 13:56 Dextrose 10% IV CONT .Q20H PRN if PN is interrupted Dextrose 1,000 mls @ 100 mls/hr 07/02/24 13:59 Dextrose 5% 1,000 Ml IVPB PRN PRN Hypoglycemia Protocol Ibuprofen 800 mg in 200 mls @ 400 mls/hr 07/06/24 18:50 07/08/24 06:12 Caldolor 800 Mg/200 Ml IVPB Infused Q6H PRN Infusion Breakthrough Pain Rated 1-3 or NPO Piperacillin/Tazobactam/Dextrose 3.375 gm in 50 mls @ 100 mls/hr 07/06/24 20:00 07/08/24 02:21 Zosyn 3.375 Gm/Ns 50 Ml IVPB Infused Q6H VANDANA Infusion Multivitamins 1.25 ml/ 1,002.5 mls @ 70 mls/hr 07/06/24 21:00 07/08/24 02:00 Multivitamins 1.25 ml/ Amino IV CONT 70 mls/hr Acids/Electrolytes/Dextrose .[id number] VANDANA Administration Protocol Fat Emulsion Intravenous 250 mls @ 20.833 mls/hr 07/06/24 21:00 07/07/24 20:05 Lipids 20% IVPB 20.83 mls/hr Q24H VANDANA Administration Potassium Chloride/Sodium Chloride 1,000 mls @ 80 mls/hr 07/08/24 08:05 Kcl 40 Meq/0.45% Ns IV CONT .[id number] VANDANA Potassium Chloride 40 meq/ 520 mls @ 130 mls/hr 07/08/24 08:05 Sodium Chloride IVPB 07/08/24 12:04 ONCE ONE Insulin Human Regular 0 units 07/02/24 18:00 07/08/24 05:42 Insulin Human Regular (*Bkc) 100 Units/Ml SUB-Q Not Given Q6HR [facility] Protocol Lorazepam 2 mg 07/07/24 16:01 07/07/24 18:17 Lorazepam Inj (*Crx) 2 Mg/Ml Vial IV PUSH 2 mg Q4H PRN Administration CIWA 8-15 Metoprolol Tartrate 5 mg 07/02/24 08:51 07/07/24 20:13 Metoprolol Tartrate Inj 5 Mg/5 Ml Vial IV PUSH 5 mg Q4H PRN Administration Tachycardia Naloxone HCl 0.1 mg 07/06/24 18:50 Naloxone Hcl 0.4 Mg/Ml Vial IV PUSH Q2M PRN Opiate Reversal Ondansetron HCl 4 mg 06/27/24 08:21 07/07/24 20:13 Ondansetron Inj 4 Mg/2 Ml Vial IV PUSH 4 mg Q4H PRN Administration Nausea Pantoprazole Sodium 40 mg 06/28/24 09:00 07/07/24 09:59 Pantoprazole Sodium Iv 40 Mg Vial IV PUSH 40 mg QAM VANDANA Administration Sodium Chloride 10 ml 07/02/24 22:00 07/08/24 05:42 Central Line Flush IV PUSH 10 ml Q8HR VANDANA Administration Sodium Chloride 10 ml 07/02/24 15:38 07/04/24 14:13 Central Line Flush IV PUSH 10 ml PRN PRN Administration with TPN bag changes Sodium Chloride 20 ml 07/02/24 15:38 Central Line Flush IV PUSH PRN PRN after blood draws Thiamine HCl 100 mg 06/27/24 09:00 07/07/24 09:59 Thiamine Hcl 200 Mg/2 Ml Vial IV PUSH 100 mg DAILY VANDANA Administration Radiology Results: ITS Impressions Chest/Abdomen/Pelvis CTA 06/27/24 06:17 IMPRESSION: CHEST: 1. No pulmonary embolism. No aortic dissection 2. No acute cardiopulmonary pathology. ABDOMEN/PELVIS: 1. Small bowel obstruction with the transition zone in the terminal ileum area. Clinical correlation advised. 2. No evidence of appendicitis, or diverticulitis. Head CT 06/27/24 06:59 IMPRESSION: No acute intracranial findings. Cervical Spine CT 06/27/24 07:58 IMPRESSION: No acute osseous abnormality cervical spine. Multilevel degenerative disc disease. NG Tube Placement 07/02/24 07:18 IMPRESSION: Fluoroscopy used during NG tube placement in the stomach. Chest X-Ray 07/02/24 15:30 IMPRESSION: 1. Right PICC line tip at the caudal superior vena cava. 2. Unchanged mild streaky bibasilar atelectasis and discoid atelectasis at the superior segment of the right lower lobe. Small Bowel X-Ray 07/05/24 16:01 IMPRESSION: 1. Persistent ileus versus small bowel obstruction with contrast not having reached the distalmost dilated loops of gas-filled small bowel over the course of 6 hours. Abdomen X-Ray 07/06/24 06:36 Impression: Small bowel obstruction with NG tube in place. Abdomen/Pelvis CT 07/07/24 05:20 Impression: Small amount of pneumoperitoneum, likely postoperative with evidence of recent midline incision stapling since prior exam. Correlate with surgical history. Bowel distention/bowel obstruction is essentially resolved as compared to prior exam. Small bowel evaluation is limited on the current exam due to extensive matting together of bowel loops. Small amount of ascites. Small pleural effusions with bibasilar pulmonary edema/atelectasis versus pneumonia. Correlate clinically. Labs Labs: Laboratory Results - last 24 hr 07/07/24 07/07/24 07/07/24 05:23 11:43 17:47 WBC RBC Hgb Hct MCV MCH MCHC RDW Plt Count MPV Immature Gran % (Auto) Neut % (Auto) Lymph % (Auto) Person % (Auto) Eos % (Auto) Baso % (Auto) Lymph # (Auto) Person # (Auto) Eos # (Auto) Baso # (Auto) Abs Immat Gran (auto) Absolute Neuts (auto) Absolute Nucleated RBC Total Counted Neutrophils % (Manual) Band Neutrophils % Lymphocytes % (Manual) Monocytes % (Manual) Eosinophils % (Manual) Nucleated RBC % Abs Neuts (Manual) Abs Lymphs (Manual) Abs Monocytes (Manual) Absolute Eos (Manual) Platelet Estimate Schistocytes Sodium Potassium Chloride Carbon Dioxide Anion Gap BUN Creatinine Estim Creat Clear Calc Estimated GFR Glucose POC Capillary Glucose 137 H 134 H Calcium Phosphorus Magnesium Total Bilirubin AST ALT Alkaline Phosphatase Total Protein Albumin Triglycerides 203 H 07/07/24 07/08/24 07/08/24 23:52 04:56 05:31 WBC 10.5 H RBC 3.05 L Hgb 9.4 L Hct 30.1 L MCV 98.7 MCH 30.8 MCHC 31.2 L RDW 14.4 Plt Count 249 MPV 11.2 H Immature Gran % (Auto) Not Reportable Neut % (Auto) Not Reportable Lymph % (Auto) Not Reportable Person % (Auto) Not Reportable Eos % (Auto) Not Reportable Baso % (Auto) Not Reportable Lymph # (Auto) Not Reportable Person # (Auto) Not Reportable Eos # (Auto) Not Reportable Baso # (Auto) Not Reportable Abs Immat Gran (auto) Not Reportable Absolute Neuts (auto) Not Reportable Absolute Nucleated RBC Not Reportable Total Counted 100 Neutrophils % (Manual) 74 H Band Neutrophils % 17 H Lymphocytes % (Manual) 6 L Monocytes % (Manual) 1 L Eosinophils % (Manual) 2 Nucleated RBC % Not Reportable Abs Neuts (Manual) 9.55 H Abs Lymphs (Manual) 0.63 L Abs Monocytes (Manual) 0.10 Absolute Eos (Manual) 0.21 Platelet Estimate Adequate Schistocytes None seen Sodium 150 H Potassium 3.2 L Chloride 123 H Carbon Dioxide 19 L Anion Gap 8 BUN 21 H Creatinine 1.16 Estim Creat Clear Calc 54 Estimated GFR > 60 Glucose 113 H POC Capillary Glucose 131 H 143 H Calcium 7.6 L Phosphorus 3.6 Magnesium 2.5 H Total Bilirubin 0.4 AST 16 L ALT 8 Alkaline Phosphatase 37 L Total Protein 5.0 L Albumin 2.1 L Triglycerides
[2024-07-08] MEDS: THIAMINE HCL 200 MG/2 ML VIAL 100 MG IV PUSH (08:56)
[2024-07-08] MEDS: ENOXAPARIN 40 MG/0.4 ML SYRINGE SUB-Q (08:56)
[2024-07-08] MEDS: POTASSIUM CHLORIDE INJ 40 MEQ in SODIUM CHLORIDE 0.9% IV 500 ML 130 MEQ IVPB (08:56)
[2024-07-08] MEDS: PANTOPRAZOLE SODIUM IV 40 MG VIAL IV PUSH (08:56)
[2024-07-08 09:23] LABS: CRP 34.1 mg/dL (<1.0)
--- NOTE | 2024-07-08 09:54 | PCPTNOTE ---
Attempted PT re-evaluation, pt refused and becoming agitated with encouragement. Pt confused. Pt's spouse present. Nursing present. Will follow.
[2024-07-08] MEDS: LORazepam INJ (*CRX) 2 MG/ML VIAL IV PUSH ×3 (10:02→20:45)
[2024-07-08 11:33] LABS: Glucose Point of Care 111 mg/dl (65-105)
--- NOTE | 2024-07-08 12:02 | P.PNIM_ITS ---
Progress Note: A&P Assessment and Plan (1) Small bowel obstruction: Code(s): K56.609 - Unspecified intestinal obstruction, unspecified as to partial versus complete obstruction Status: Acute Assessment and Plan: Patient admitted after complaints of ABD pain with N/V. CT chest abdomen pelvis CTA was performed which showed no PE no aortic dissection. Abdomen pelvis showed small-bowel obstruction with the transition zone in the terminal ileum area. No evidence of appendicitis or diverticulitis. General surgery was consulted and patient was taken for exploratory laparotomy 06/29/2024 for repair serosal tears x2. IV fluids switched to Dextrose 5/water NA up to 149 and BS 68. Patient had pulled out his NG tube which was replaced under fluoroscopy, mild distention noted reporting having flatulence and bowel movement reported overnight, Tolerating TPN . Continue to encourage patient to get up and perform activity ordered PT/OT. reported he appeared more lethargic yesterday afternoon pain medication adjusted by surgery less lethargic today small bowel series showed persistent ileus versus small-bowel obstruction with contrast not having reach the distal most dilated loops . Patient post-op day 7 KUB with A continued postoperative SBO will need to continue NPO and NG tube * Patient going back for exploratory surgery due to ongoing SBO 07/06/2024 * NPO with Ice chips * NG tube to suction continued for decompression * pain control * ambulate as tolerated * Antiemetics * Will advance diet per surgery once bowel function has returned * Incentive spirometer * PT/OT * Continue serial KUB 07/07 * Postop day 1 from lysis of adhesions and resection of jejunal perforation with anastomosis * Continue NG tube to low intermittent suction, 1 L out since surgery yesterday--green bilious drainage * Continue pain control * Continue NPO status * Continue TPN and lipids 07/08 * Post op day 2 * NG tube to LIS bilious * General surgery following * Continue NPO status * Continue TPN and lipids * Continue IV fluids D5W & 40 KCL (2) Chronic alcohol use: Code(s): F10.90 - Alcohol use, unspecified, uncomplicated Status: Chronic Assessment and Plan: Does not appear in withdrawal at this time will continue to monitor * Last drink 06/23 * Thiamine, folic acid, and multi-vitamin * PPI daily * librium PRN * CIWA daily * Monitor and replenish electrolytes as needed 07/07 * Currently tachycardic in the 130s with altered mental status and hallucinations * Continue CIWA protocol * Will hold off on Librium * Continue thiamine, folic acid, multivitamin * Last drink was on 06/23 however he drinks whiskey daily 07/08 * HR down to 90's * Continue CIWA protocol * CIWA score has been 18, he remains confused and agitated at times (3) Hypertension: Code(s): I10 - Essential (primary) hypertension Status: Acute Assessment and Plan: patient has been hypertensive systolics running between 180s to 160s. patient does not take any hypertensive medications at home will re-evaluate prior to discharge if patient will need oral antihypertensive medications at discharge after current acute issues are resolved. * I added hydralazine 20 mg IV push as needed for systolics greater than 160 * episodes of tachycardia surgery added metoprolol IV push PRN * BP per unit protocol 07/07 * Continue metoprolol 5 mg IV push q.4 hours for tachycardia * Continue hydralazine as needed for blood pressure control 07/08 * No change (4) ORTEGA (acute kidney injury): Code(s): N17.9 - Acute kidney failure, unspecified Status: Resolved Assessment and Plan: * Acute kidney injury CR 1.98 POA since resolved with IV fluids 07/07 * Resolved (5) Hypernatremia: Code(s): E87.0 - Hyperosmolality and hypernatremia Status: Resolved Assessment and Plan: * Patient now with hypernatremia at 149 discussed with surgery we will switch his IV fluids to dextrose 5 and water follow-up BMP later on today 07/07 * Resolved (6) Hyponatremia: Code(s): E87.1 - Hypo-osmolality and hyponatremia Status: Resolved Assessment and Plan: * Resolved likely secondary to dehydration and ETOH abuse patient was initially 130 POA resolved with IV fluids 07/07 * Resolved (7) Altered mental status: Code(s): R41.82 - Altered mental status, unspecified Status: Acute Assessment and Plan: Patient has had altered mental status ever since coming back from surgery yesterday. He is alert and oriented x1, will follow commands. Patient having hallucinations per nursing team. This could be from alcohol withdrawal verses polypharmacy versus unknown cause * Sodium is normal at 145, creatinine is normal at 1.20, blood sugars have been ranging 111-148, liver function was normal yesterday. * Patient has Eller catheter in place, UA was showing bacteria however urine culture was negative * Blood cultures are negative on preliminary read * Continue neuro checks * Continue CIWA protocol * Patient has not received any pain medications in the past 24 hours 07/08 * Continue CIWA protocol * Alert and oriented x2 * Continue neuro checks Time Spent With Patient Time with patient: 25 - 35 minutes Subjective Date/time seen: 07/08/24 12:02 Interval history: Interval summary: This is a 64-year-old male with a significant past medical history of who presented to the hospital on 06/27/2024 with abdominal pain With associated nausea and vomiting. Workup in the hospital included a chest abdomen and pelvis CTA which was negative for PE and no cardiopulmonary disease, however did show a small bowel obstruction with transition zone in the terminal ileum area. Head CT was negative. Cervical spine CT was negative for any acute osseous abnormality, showed multilevel degenerative disc disease. An NG tube was placed while in the ED and follow-up KUB showed the NG tube in good position. On 06/28/2024 patient had a small bowel x-ray which showed high-grade small-bowel obstruction. initial labs showed a hemoglobin of 18.5, INR 1.1, sodium 130, chloride 90, bicarb 20, anion gap 20, creatinine 1.98, EGFR 34, blood sugars ranging 171-218, lactic acid 2.5> 2.8> 1.2, magnesium 1.8, total bili 1.8, troponin 0.369> 0.4-2, proBNP 3980, TSH 3.940. UA was obtained which showed turbid urine appearance, greater than 1.045 urine specific gravity, 2+ urine protein, trace ketone, 1+ urine bilirubin, trace leukocytes, 11-20 urine RBC, 11-20 urine WBC, greater than 20 urine cast. Respiratory panel was negative for influenza a and B, RSV, COVID. Echocardiogram showed normal LV systolic function with an estimated EF of greater than 70%, diastolic dysfunction, small pericardial effusion. General surgery was consulted and treated conservatively at however patient was having high output through the NG tube and patient was sent for a small bowel x-ray on 07/05/2024 which showed persistent ileus versus small-bowel obstruction with contrast not having reach the distal most daily did loops of gas filled small bowel over the course of a 6 hour period of time. He had a repeat CT scan on 07/06/2024 which shown findings compatible with small bowel obstruction with transition point in the mid small bowel, small amount of ascites with mesenteric edema, small right pleural effusion with patchy bibasilar pulmonary consolidation. He was then taken to the OR on 07/06/[address] Shipman 4 lysis of adhesion with resection of the jejunal perforation with anastomosis. Patient was still having high output out of his NG tube postop with heart rate in the 130s and signs of dehydration. Another abdomen pelvis CT was obtained which shown small amount of pneumoperitoneum likely postoperative with evidence of recent midline incision, bowel distention/bowel obstruction is essentially resolved as compared to prior exam, small amount of ascites, small pleural effusions with bibasilar pulmonary edema /atelectasis. He was given 1.5 L bolus on 07/06/2024. He continues with NG tube and General surgery following. Subjective: Patient is alert and oriented x2 today, a bit better today. He does get agitated at times and CIWA score has been 18 today. Labs reviewed. Review of Systems 2 Review of Systems: All systems reviewed & are unremarkable except as noted in HPI and below Exam Narrative: General: In no acute distress Head: atraumatic, encephalopathy and confused today Cardiac: Normal S1 and S2. Tachycardic in the 120s to 130s, No murmur, gallops or friction rubs, peripheral pulses intact. Respiratory: Lungs clear to auscultation, no adventitious lung sounds, currently on room air Gastrointestinal: taunt, mildly distended, non-tender, hypoactive bowel sounds. : Eller catheter in place draining clear yellow urine Skin: Midline incision covered with dressing Neuro: Alert and oriented x2--improving Psych:agitated today Objective Data Vital Signs Vital Signs: Vital Signs - 24 hr 07/07/24 15:00 07/07/24 15:32 07/07/24 16:00 Temperature Pulse Rate 134 H 110 H Pulse Rate [Pedal (Dorsalis Pedis)] 133 H Respiratory Rate Blood Pressure 143/75 H Pulse Oximetry Oxygen Delivery 07/07/24 16:01 07/07/24 16:28 07/07/24 18:18 Temperature 99.1 F Pulse Rate 111 H Pulse Rate [Pedal (Dorsalis Pedis)] 119 H 123 H Respiratory Rate 18 Blood Pressure 125/66 125/66 Pulse Oximetry 96 Oxygen Delivery 07/07/24 20:00 07/07/24 20:00 07/07/24 20:00 Temperature Pulse Rate 124 H Pulse Rate [Pedal (Dorsalis Pedis)] 123 H Respiratory Rate Blood Pressure Pulse Oximetry Oxygen Delivery Room Air 07/07/24 20:13 07/07/24 20:35 07/08/24 00:00 Temperature 99.4 F Pulse Rate 126 H 126 H 113 H Pulse Rate [Pedal (Dorsalis Pedis)] Respiratory Rate 18 Blood Pressure 146/69 H Pulse Oximetry 98 Oxygen Delivery 07/08/24 04:00 07/08/24 04:00 07/08/24 05:55 Temperature 98.7 F Pulse Rate 110 H 112 H Pulse Rate [Pedal (Dorsalis Pedis)] 106 H Respiratory Rate 16 Blood Pressure 159/81 H Pulse Oximetry 94 Oxygen Delivery 07/08/24 08:00 07/08/24 08:00 07/08/24 08:00 Temperature Pulse Rate 86 85 Pulse Rate [Pedal (Dorsalis Pedis)] 82 Respiratory Rate Blood Pressure Pulse Oximetry Oxygen Delivery Room Air 07/08/24 10:00 Temperature Pulse Rate Pulse Rate [Pedal (Dorsalis Pedis)] 98 Respiratory Rate Blood Pressure Pulse Oximetry Oxygen Delivery Intake/Output Intake/Output: Intake & Output 07/05/24 07/06/24 07/07/24 07/08/24 23:59 23:59 23:59 23:59 Intake Total 3533.8 2970.2 2354.1 2552.5 Output Total 3200 1500 2750 1850 Balance 333.8 1470.2 -395.9 702.5 Meds/Results Medications: Active Medications Generic Name Dose Route Start Last Admin Trade Name Freq PRN Reason Stop Dose Admin Dextrose 12.5 gm 07/02/24 13:59 Dextrose 50% 25 Gm/50 Ml Syringe IV PUSH PRN PRN Hypoglycemia Protocol Enoxaparin Sodium 40 mg 06/29/24 09:00 07/08/24 08:56 Enoxaparin 40 Mg/0.4 Ml Syringe SUB-Q 40 mg DAILY VANDANA Administration Fentanyl Citrate 12.5 mcg 07/04/24 16:56 Fentanyl Citrate Inj (*Crx) 100 Mcg/2 Ml Vial IV PUSH Q2H PRN Breakthrough Pain Rated 4-6 or NPO Fentanyl Citrate 25 mcg 07/04/24 16:56 07/08/24 07:09 Fentanyl Citrate Inj (*Crx) 100 Mcg/2 Ml Vial IV PUSH 25 mcg Q2H PRN Administration Breakthrough Pain Rated 7-10 or NPO Glucagon 1 mg 07/02/24 13:59 Glucagon For Inj 1 Mg Vial IM PRN PRN Hypoglycemia Protocol Glucose 15 gm 07/02/24 13:59 Glucose Oral Gel 15 Gm Of Glucse In 37.5 Gm Tube PO PRN PRN Hypoglycemia Protocol Hydralazine HCl 20 mg 07/02/24 10:27 07/05/24 15:10 Hydralazine Hcl 20 Mg/Ml Vial IV PUSH 20 mg Q6H PRN Administration Hypertension Dextrose 1,000 mls @ 50 mls/hr 07/02/24 13:56 Dextrose 10% IV CONT .Q20H PRN if PN is interrupted Dextrose 1,000 mls @ 100 mls/hr 07/02/24 13:59 Dextrose 5% 1,000 Ml IVPB PRN PRN Hypoglycemia Protocol Ibuprofen 800 mg in 200 mls @ 400 mls/hr 07/06/24 18:50 07/08/24 06:12 Caldolor 800 Mg/200 Ml IVPB Infused Q6H PRN Infusion Breakthrough Pain Rated 1-3 or NPO Piperacillin/Tazobactam/Dextrose 3.375 gm in 50 mls @ 100 mls/hr 07/06/24 20:00 07/08/24 09:25 Zosyn 3.375 Gm/Ns 50 Ml IVPB Infused Q6H VANDANA Infusion Multivitamins 1.25 ml/ 1,002.5 mls @ 70 mls/hr 07/06/24 21:00 07/08/24 02:00 Multivitamins 1.25 ml/ Amino IV CONT 70 mls/hr Acids/Electrolytes/Dextrose .[id number] VANDANA Administration Protocol Fat Emulsion Intravenous 250 mls @ 20.833 mls/hr 07/06/24 21:00 07/08/24 08:06 Lipids 20% IVPB Infused Q24H VANDANA Infusion Potassium Chloride/Sodium Chloride 1,000 mls @ 80 mls/hr 07/08/24 10:00 07/08/24 10:10 Kcl 40 Meq/0.45% Ns IV CONT Not Given .[id number] VANDANA Potassium Chloride 40 meq/ 520 mls @ 130 mls/hr 07/08/24 08:05 07/08/24 08:56 Sodium Chloride IVPB 07/08/24 12:04 130 mls/hr ONCE ONE Administration Potassium Chloride 40 meq/ 520 mls @ 130 mls/hr 07/08/24 12:01 Sodium Chloride IVPB 07/08/24 16:00 ONCE ONE Insulin Human Regular 0 units 07/02/24 18:00 07/08/24 05:42 Insulin Human Regular (*Bkc) 100 Units/Ml SUB-Q Not Given Q6HR COUNT INCLUDES THE [facility] Protocol Lorazepam 2 mg 07/07/24 16:01 07/08/24 10:02 Lorazepam Inj (*Crx) 2 Mg/Ml Vial IV PUSH 2 mg Q4H PRN Administration [facility] 8-15 Metoprolol Tartrate 5 mg 07/02/24 08:51 07/07/24 20:13 Metoprolol Tartrate Inj 5 Mg/5 Ml Vial IV PUSH 5 mg Q4H PRN Administration Tachycardia Naloxone HCl 0.1 mg 07/06/24 18:50 Naloxone Hcl 0.4 Mg/Ml Vial IV PUSH Q2M PRN Opiate Reversal Ondansetron HCl 4 mg 06/27/24 08:21 07/07/24 20:13 Ondansetron Inj 4 Mg/2 Ml Vial IV PUSH 4 mg Q4H PRN Administration Nausea Pantoprazole Sodium 40 mg 06/28/24 09:00 07/08/24 08:56 Pantoprazole Sodium Iv 40 Mg Vial IV PUSH 40 mg QAM VANDANA Administration Sodium Chloride 10 ml 07/02/24 22:00 07/08/24 05:42 Central Line Flush IV PUSH 10 ml Q8HR VANDANA Administration Sodium Chloride 10 ml 07/02/24 15:38 07/04/24 14:13 Central Line Flush IV PUSH 10 ml PRN PRN Administration with TPN bag changes Sodium Chloride 20 ml 07/02/24 15:38 Central Line Flush IV PUSH PRN PRN after blood draws Thiamine HCl 100 mg 06/27/24 09:00 07/08/24 08:56 Thiamine Hcl 200 Mg/2 Ml Vial IV PUSH 100 mg DAILY VANDANA Administration Radiology Results: ITS Impressions Chest/Abdomen/Pelvis CTA 06/27/24 06:17 IMPRESSION: CHEST: 1. No pulmonary embolism. No aortic dissection 2. No acute cardiopulmonary pathology. ABDOMEN/PELVIS: 1. Small bowel obstruction with the transition zone in the terminal ileum area. Clinical correlation advised. 2. No evidence of appendicitis, or diverticulitis. Head CT 06/27/24 06:59 IMPRESSION: No acute intracranial findings. Cervical Spine CT 06/27/24 07:58 IMPRESSION: No acute osseous abnormality cervical spine. Multilevel degenerative disc disease. NG Tube Placement 07/02/24 07:18 IMPRESSION: Fluoroscopy used during NG tube placement in the stomach. Chest X-Ray 07/02/24 15:30 IMPRESSION: 1. Right PICC line tip at the caudal superior vena cava. 2. Unchanged mild streaky bibasilar atelectasis and discoid atelectasis at the superior segment of the right lower lobe. Small Bowel X-Ray 07/05/24 16:01 IMPRESSION: 1. Persistent ileus versus small bowel obstruction with contrast not having reached the distalmost dilated loops of gas-filled small bowel over the course of 6 hours. Abdomen X-Ray 07/06/24 06:36 Impression: Small bowel obstruction with NG tube in place. Abdomen/Pelvis CT 07/07/24 05:20 Impression: Small amount of pneumoperitoneum, likely postoperative with evidence of recent midline incision stapling since prior exam. Correlate with surgical history. Bowel distention/bowel obstruction is essentially resolved as compared to prior exam. Small bowel evaluation is limited on the current exam due to extensive matting together of bowel loops. Small amount of ascites. Small pleural effusions with bibasilar pulmonary edema/atelectasis versus pneumonia. Correlate clinically. Labs Labs: Laboratory Results - last 24 hr 07/07/24 07/07/24 07/07/24 05:23 17:47 23:52 WBC RBC Hgb Hct MCV MCH MCHC RDW Plt Count MPV Immature Gran % (Auto) Neut % (Auto) Lymph % (Auto) [place] % (Auto) Eos % (Auto) Baso % (Auto) Lymph # (Auto) [place] # (Auto) Eos # (Auto) Baso # (Auto) Abs Immat Gran (auto) Absolute Neuts (auto) Absolute Nucleated RBC Total Counted Neutrophils % (Manual) Band Neutrophils % Lymphocytes % (Manual) Monocytes % (Manual) Eosinophils % (Manual) Nucleated RBC % Abs Neuts (Manual) Abs Lymphs (Manual) Abs Monocytes (Manual) Absolute Eos (Manual) Platelet Estimate Schistocytes Sodium Potassium Chloride Carbon Dioxide Anion Gap BUN Creatinine Estim Creat Clear Calc Estimated GFR Glucose POC Capillary Glucose 134 H 131 H Calcium Phosphorus Magnesium Total Bilirubin AST ALT Alkaline Phosphatase C-Reactive Protein Total Protein Albumin Triglycerides 203 H 07/08/24 07/08/24 07/08/24 04:56 05:31 11:28 WBC 10.5 H RBC 3.05 L Hgb 9.4 L Hct 30.1 L MCV 98.7 MCH 30.8 MCHC 31.2 L RDW 14.4 Plt Count 249 MPV 11.2 H Immature Gran % (Auto) Not Reportable Neut % (Auto) Not Reportable Lymph % (Auto) Not Reportable [place] % (Auto) Not Reportable Eos % (Auto) Not Reportable Baso % (Auto) Not Reportable Lymph # (Auto) Not Reportable [place] # (Auto) Not Reportable Eos # (Auto) Not Reportable Baso # (Auto) Not Reportable Abs Immat Gran (auto) Not Reportable Absolute Neuts (auto) Not Reportable Absolute Nucleated RBC Not Reportable Total Counted 100 Neutrophils % (Manual) 74 H Band Neutrophils % 17 H Lymphocytes % (Manual) 6 L Monocytes % (Manual) 1 L Eosinophils % (Manual) 2 Nucleated RBC % Not Reportable Abs Neuts (Manual) 9.55 H Abs Lymphs (Manual) 0.63 L Abs Monocytes (Manual) 0.10 Absolute Eos (Manual) 0.21 Platelet Estimate Adequate Schistocytes None seen Sodium 150 H Potassium 3.2 L Chloride 123 H Carbon Dioxide 19 L Anion Gap 8 BUN 21 H Creatinine 1.16 Estim Creat Clear Calc 54 Estimated GFR > 60 Glucose 113 H POC Capillary Glucose 143 H 111 H Calcium 7.6 L Phosphorus 3.6 Magnesium 2.5 H Total Bilirubin 0.4 AST 16 L ALT 8 Alkaline Phosphatase 37 L C-Reactive Protein 34.1 H Total Protein 5.0 L Albumin 2.1 L Triglycerides Quality VTE Prophylaxis VTE prophylaxis: pharmacologic ordered
--- NOTE | 2024-07-08 13:57 | PCOTNOTE ---
Attempted to see pt. for occupational therapy reevaluation. Per nursing pt. is too confused an anxious to safely participate at this time. Following.
[2024-07-08] MEDS: POTASSIUM CHLORIDE INJ 40 MEQ in DEXTROSE 5% 1,000 ML 1,000 ML 100 MEQ IV CONT (16:51)
[2024-07-08] MEDS: FAT EMULSIONS IV 20% 250 ML 20.83 ML IVPB (20:23)
[2024-07-09] VITALS (11 sets, daily range): BP systolic 150–175; BP diastolic 73–98; PULSE 80–107; RESP 16–20; TEMP 36.3–37; O2SAT 95–98
[2024-07-09 00:37] LABS: Glucose Point of Care 128 mg/dl (65-105)
[2024-07-09] MEDS: PIPERACILLN/TAZ 3.375GM/NS50ML 3.375 GM/50 ML BAG IVPB ×2 (01:00→07:54)
[2024-07-09] MEDS: POTASSIUM CHLORIDE INJ 40 MEQ in DEXTROSE 5% 1,000 ML 1,000 ML 100 MEQ IV CONT ×2 (04:52→23:39)
[2024-07-09] MEDS: CENTRAL LINE FLUSH 10 ML IV PUSH ×3 (06:06→23:39)
[2024-07-09] MEDS: AMINO ACIDS 5%/D15W/E-LYTES/CA 1,000 ML with MULTIVITAMINS-12 INJ VIAL 1 1.25 ML, MULTI... 70 ML IV CONT ×2 (06:09→21:42)
[2024-07-09] MEDS: IBUPROFEN IV 800 MG/200 ML 800 MG/200 ML BAG 400 MG IVPB (06:18)
[2024-07-09 06:31] LABS: Glucose Point of Care 96 mg/dl (65-105)
[2024-07-09 06:32] LABS: Basophils Absolute Auto 0.1 K/mm3 (0.0-0.1); Basophils Percent Auto 0.5 % (0.2-1.2); Eosinophils Absolute Auto 0.1 K/mm3 (0-0.3); Eosinophils Percent Auto 1.4 % (0-4.4); Hematocrit 30.9 % (42.0-52.0); Hemoglobin 9.4 g/dL (14.0-18.0); Immature Granulocyte Absolute 0.16 K/mm3 (0.00-0.031); Immature Granulocyte Percent A 1.6 % (0-0.5); Lymphocytes Absolute Auto 1.26 K/mm3 (0.9-3.2); Lymphocytes Percent Auto 12.4 % (18.3-44.2); Mean Corpuscular HGB Conc 30.4 g/dl (32-36); Mean Platelet Volume 11.5 fl (7.4-10.4); Monocytes Absolute Auto 0.7 K/mm3 (0.1-0.6); Monocytes Percent Auto 7.2 % (2.6-8.5); Neutrophils Absolute Auto 7.8 K/mm3 (1.3-6.7); Neutrophils Percent Auto 76.9 % (45.5-73.1); Platelet Count Result 249 k/mm3 (150-375); Red Blood Count 3.03 M/mm3 (4.6-6.20); Red Cell Distribution Width 14.6 % (11.5-14.5); White Blood Count 10.1 K/mm3 (4.5-10.0)
[2024-07-09 06:51] LABS: Anion Gap 5 mmol/L (4-12); Blood Urea Nitrogen 21 mg/dL (9-20); Calcium 7.5 mg/dL (8.4-10.2); Carbon Dioxide 19 mmol/L (22-30); Chloride 123 mmol/L (98-107); Estimated CRCL calculation 66 ml/min; Estimated Glomerular Filt Rate > 60; Glucose 80 mg/dL (65-110); Potassium 3.7 mmol/L (3.4-5.0); Sodium 147 mmol/L (137-145)
[2024-07-09 07:20] LABS: CRP 19.9 mg/dL (<1.0)
--- NOTE | 2024-07-09 07:23 | P.PNGS_ITS ---
Progress Note: A&P Assessment and Plan (1) Small bowel obstruction: Code(s): K56.609 - Unspecified intestinal obstruction, unspecified as to partial versus complete obstruction Status: Acute Assessment and Plan: Had bowel movement again yesterday, plain films show no small-bowel obstruction. He has bowel sounds but still has large volume from nasogastric tube. Will get small bowel series today. Start liquids once bowel function returns. (2) Protein-calorie malnutrition, severe: Code(s): E43 - Unspecified severe protein-calorie malnutrition Status: Acute Assessment and Plan: Continue TPN. (3) Chronic alcohol use: Code(s): F10.90 - Alcohol use, unspecified, uncomplicated Status: Chronic Assessment and Plan: Mental status changes persist. Delirium or encephalopathy. Do not feel there are signs of sepsis. Continue to monitor. Subjective Subjective Date/Time Seen: 07/09/24 07:23 Post Op day: 3 Patient reports: bowel movement (Yesterday and day before) and other (Confused, no complaints) Exam Const: General: cooperative, awake, lethargic and tired appearing Orientation/consciousness: confusion (Oriented times 0 this morning) GI: Inspection: non-distended and incision (0 purulent drainage, removed several cora, packed gauze) GI Palp: Yes abdominal tenderness Auscultation: normal bowel sounds Objective Data Vital Signs Vital Signs: Vital Signs - 24 hr 07/08/24 08:00 07/08/24 08:00 07/08/24 08:00 Temperature Pulse Rate 86 85 Pulse Rate [Pedal (Dorsalis Pedis)] 82 Respiratory Rate Blood Pressure Pulse Oximetry Oxygen Delivery Room Air 07/08/24 10:00 07/08/24 12:00 07/08/24 12:45 Temperature 37.1 C Pulse Rate 98 85 Pulse Rate [Pedal (Dorsalis Pedis)] 98 Respiratory Rate 16 Blood Pressure 159/81 H Pulse Oximetry 94 Oxygen Delivery Room Air 07/08/24 14:00 07/08/24 14:00 07/08/24 15:00 Temperature 36.1 C L Pulse Rate 94 Pulse Rate [Pedal (Dorsalis Pedis)] 98 87 Respiratory Rate 18 Blood Pressure 146/88 H Pulse Oximetry 96 Oxygen Delivery 07/08/24 16:00 07/08/24 18:00 07/08/24 20:00 Temperature Pulse Rate 95 Pulse Rate [Pedal (Dorsalis Pedis)] 98 99 Respiratory Rate Blood Pressure Pulse Oximetry Oxygen Delivery 07/08/24 20:00 07/08/24 20:15 07/09/24 00:22 Temperature 36.6 C 36.3 C L Pulse Rate 96 92 Pulse Rate [Pedal (Dorsalis Pedis)] Respiratory Rate 20 16 Blood Pressure 166/89 H 163/98 H Pulse Oximetry 97 95 Oxygen Delivery Room Air 07/09/24 05:38 Temperature 36.4 C Pulse Rate 93 Pulse Rate [Pedal (Dorsalis Pedis)] Respiratory Rate 18 Blood Pressure 173/90 H Pulse Oximetry 97 Oxygen Delivery Intake/Output Intake/Output: Intake & Output 07/06/24 07/07/24 07/08/24 07/09/24 23:59 23:59 23:59 23:59 Intake Total 2970.2 2354.1 3852.5 2622.5 Output Total 1500 2750 3650 1250 Balance 1470.2 -395.9 202.5 1372.5 Meds/Results Medications: Active Medications Generic Name Dose Route Start Last Admin Trade Name Freq PRN Reason Stop Dose Admin Dextrose 12.5 gm 07/02/24 13:59 Dextrose 50% 25 Gm/50 Ml Syringe IV PUSH PRN PRN Hypoglycemia Protocol Enoxaparin Sodium 40 mg 06/29/24 09:00 07/08/24 08:56 Enoxaparin 40 Mg/0.4 Ml Syringe SUB-Q 40 mg DAILY VANDANA Administration Fentanyl Citrate 12.5 mcg 07/04/24 16:56 Fentanyl Citrate Inj (*Crx) 100 Mcg/2 Ml Vial IV PUSH Q2H PRN Breakthrough Pain Rated 4-6 or NPO Fentanyl Citrate 25 mcg 07/04/24 16:56 07/08/24 22:05 Fentanyl Citrate Inj (*Crx) 100 Mcg/2 Ml Vial IV PUSH 25 mcg Q2H PRN Administration Breakthrough Pain Rated 7-10 or NPO Glucagon 1 mg 07/02/24 13:59 Glucagon For Inj 1 Mg Vial IM PRN PRN Hypoglycemia Protocol Glucose 15 gm 07/02/24 13:59 Glucose Oral Gel 15 Gm Of Glucse In 37.5 Gm Tube PO PRN PRN Hypoglycemia Protocol Hydralazine HCl 20 mg 07/02/24 10:27 07/05/24 15:10 Hydralazine Hcl 20 Mg/Ml Vial IV PUSH 20 mg Q6H PRN Administration Hypertension Dextrose 1,000 mls @ 50 mls/hr 07/02/24 13:56 Dextrose 10% IV CONT .Q20H PRN if PN is interrupted Dextrose 1,000 mls @ 100 mls/hr 07/02/24 13:59 Dextrose 5% 1,000 Ml IVPB PRN PRN Hypoglycemia Protocol Ibuprofen 800 mg in 200 mls @ 400 mls/hr 07/06/24 18:50 07/09/24 06:18 Caldolor 800 Mg/200 Ml IVPB 400 mls/hr Q6H PRN Administration Breakthrough Pain Rated 1-3 or NPO Piperacillin/Tazobactam/Dextrose 3.375 gm in 50 mls @ 100 mls/hr 07/06/24 20:00 07/09/24 01:30 Zosyn 3.375 Gm/Ns 50 Ml IVPB Infused Q6H VANDANA Infusion Multivitamins 1.25 ml/ 1,002.5 mls @ 70 mls/hr 07/06/24 21:00 07/09/24 06:09 Multivitamins 1.25 ml/ Amino IV CONT 70 mls/hr Acids/Electrolytes/Dextrose .[id number] VANDANA Administration Protocol Fat Emulsion Intravenous 250 mls @ 20.833 mls/hr 07/06/24 21:00 07/08/24 20:23 Lipids 20% IVPB 20.83 mls/hr Q24H VANDANA Administration Potassium Chloride 40 meq/ 1,020 mls @ 100 mls/hr 07/08/24 16:20 07/09/24 04:52 Dextrose IV CONT 100 mls/hr .[id number] VANDANA Administration Insulin Human Regular 0 units 07/02/24 18:00 07/09/24 05:37 Insulin Human Regular (*Bkc) 100 Units/Ml SUB-Q Not Given Q6HR VANDANA Protocol Lorazepam 2 mg 07/07/24 16:01 07/08/24 20:45 Lorazepam Inj (*Crx) 2 Mg/Ml Vial IV PUSH 2 mg Q4H PRN Administration CIWA 8-15 Metoprolol Tartrate 5 mg 07/02/24 08:51 07/07/24 20:13 Metoprolol Tartrate Inj 5 Mg/5 Ml Vial IV PUSH 5 mg Q4H PRN Administration Tachycardia Naloxone HCl 0.1 mg 07/06/24 18:50 Naloxone Hcl 0.4 Mg/Ml Vial IV PUSH Q2M PRN Opiate Reversal Ondansetron HCl 4 mg 06/27/24 08:21 07/07/24 20:13 Ondansetron Inj 4 Mg/2 Ml Vial IV PUSH 4 mg Q4H PRN Administration Nausea Pantoprazole Sodium 40 mg 06/28/24 09:00 07/08/24 08:56 Pantoprazole Sodium Iv 40 Mg Vial IV PUSH 40 mg QAM VANDANA Administration Sodium Chloride 10 ml 07/02/24 22:00 07/09/24 06:06 Central Line Flush IV PUSH 10 ml Q8HR VANDANA Administration Sodium Chloride 10 ml 07/02/24 15:38 07/04/24 14:13 Central Line Flush IV PUSH 10 ml PRN PRN Administration with TPN bag changes Sodium Chloride 20 ml 07/02/24 15:38 Central Line Flush IV PUSH PRN PRN after blood draws Thiamine HCl 100 mg 06/27/24 09:00 07/08/24 08:56 Thiamine Hcl 200 Mg/2 Ml Vial IV PUSH 100 mg DAILY VANDANA Administration Radiology Results: ITS Impressions Chest/Abdomen/Pelvis CTA 06/27/24 06:17 IMPRESSION: CHEST: 1. No pulmonary embolism. No aortic dissection 2. No acute cardiopulmonary pathology. ABDOMEN/PELVIS: 1. Small bowel obstruction with the transition zone in the terminal ileum area. Clinical correlation advised. 2. No evidence of appendicitis, or diverticulitis. Head CT 06/27/24 06:59 IMPRESSION: No acute intracranial findings. Cervical Spine CT 06/27/24 07:58 IMPRESSION: No acute osseous abnormality cervical spine. Multilevel degenerative disc disease. NG Tube Placement 07/02/24 07:18 IMPRESSION: Fluoroscopy used during NG tube placement in the stomach. Small Bowel X-Ray 07/05/24 16:01 IMPRESSION: 1. Persistent ileus versus small bowel obstruction with contrast not having reached the distalmost dilated loops of gas-filled small bowel over the course of 6 hours. Abdomen/Pelvis CT 07/07/24 05:20 Impression: Small amount of pneumoperitoneum, likely postoperative with evidence of recent midline incision stapling since prior exam. Correlate with surgical history. Bowel distention/bowel obstruction is essentially resolved as compared to prior exam. Small bowel evaluation is limited on the current exam due to extensive matting together of bowel loops. Small amount of ascites. Small pleural effusions with bibasilar pulmonary edema/atelectasis versus pneumonia. Correlate clinically. Chest X-Ray 07/08/24 13:34 Impression: 1: Developing patchy bilateral airspace disease, compatible with pneumonia. Venous Doppler Study 07/09/24 00:02 IMPRESSION: Negative right upper extremity venous US. No deep vein thrombosis. Abdomen X-Ray 07/09/24 06:47 Impression: Nonspecific bowel gas pattern with NG tube in place. Labs Labs: Laboratory Results - last 24 hr 07/08/24 07/08/24 07/09/24 05:31 11:28 00:25 WBC RBC Hgb Hct MCV MCH MCHC RDW Plt Count MPV Immature Gran % (Auto) Neut % (Auto) Lymph % (Auto) [place] % (Auto) Eos % (Auto) Baso % (Auto) Lymph # (Auto) [place] # (Auto) Eos # (Auto) Baso # (Auto) Abs Immat Gran (auto) Absolute Neuts (auto) Absolute Nucleated RBC Nucleated RBC % Sodium Potassium Chloride Carbon Dioxide Anion Gap BUN Creatinine Estim Creat Clear Calc Estimated GFR Glucose POC Capillary Glucose 111 H 128 H Calcium Phosphorus C-Reactive Protein 34.1 H 07/09/24 07/09/24 05:41 05:47 WBC 10.1 H RBC 3.03 L Hgb 9.4 L Hct 30.9 L MCV 102.0 H MCH 31.0 MCHC 30.4 L RDW 14.6 H Plt Count 249 MPV 11.5 H Immature Gran % (Auto) 1.6 H Neut % (Auto) 76.9 H Lymph % (Auto) 12.4 L [place] % (Auto) 7.2 Eos % (Auto) 1.4 Baso % (Auto) 0.5 Lymph # (Auto) 1.26 [place] # (Auto) 0.7 H Eos # (Auto) 0.1 Baso # (Auto) 0.1 Abs Immat Gran (auto) 0.16 H Absolute Neuts (auto) 7.8 H Absolute Nucleated RBC 0.000 Nucleated RBC % 0.0 Sodium 147 H Potassium 3.7 Chloride 123 H Carbon Dioxide 19 L Anion Gap 5 BUN 21 H Creatinine 0.94 Estim Creat Clear Calc 66 Estimated GFR > 60 Glucose 80 POC Capillary Glucose 96 Calcium 7.5 L Phosphorus 3.0 C-Reactive Protein 19.9 H Imaging Attestation: I personally reviewed and interpreted this imaging study as follows: (Plain films from this morning) My impression: Resolving ileus, much better than when nasogastric tube was repositioned. Can see much colon gas. Radiologist's impression: Nonspecific gout gas pattern with NG tube in place
[2024-07-09] MEDS: THIAMINE HCL 200 MG/2 ML VIAL 100 MG IV PUSH (07:53)
[2024-07-09] MEDS: PANTOPRAZOLE SODIUM IV 40 MG VIAL IV PUSH (07:53)
[2024-07-09] MEDS: ENOXAPARIN 40 MG/0.4 ML SYRINGE SUB-Q (07:54)
--- NOTE | 2024-07-09 08:55 | P.PNIM_ITS ---
Progress Note: A&P Assessment and Plan (1) Small bowel obstruction: Code(s): K56.609 - Unspecified intestinal obstruction, unspecified as to partial versus complete obstruction Status: Acute Assessment and Plan: Patient admitted after complaints of ABD pain with N/V. CT chest abdomen pelvis CTA was performed which showed no PE no aortic dissection. Abdomen pelvis showed small-bowel obstruction with the transition zone in the terminal ileum area. No evidence of appendicitis or diverticulitis. General surgery was consulted and patient was taken for exploratory laparotomy 06/29/2024 for repair serosal tears x2. IV fluids switched to Dextrose 5/water NA up to 149 and BS 68. Patient had pulled out his NG tube which was replaced under fluoroscopy, mild distention noted reporting having flatulence and bowel movement reported overnight, Tolerating TPN . Continue to encourage patient to get up and perform activity ordered PT/OT. reported he appeared more lethargic yesterday afternoon pain medication adjusted by surgery less lethargic today small bowel series showed persistent ileus versus small-bowel obstruction with contrast not having reach the distal most dilated loops . Patient post-op day 7 KUB with A continued postoperative SBO will need to continue NPO and NG tube * Patient going back for exploratory surgery due to ongoing SBO 07/06/2024 * NPO with Ice chips * NG tube to suction continued for decompression * pain control * ambulate as tolerated * Antiemetics * Will advance diet per surgery once bowel function has returned * Incentive spirometer * PT/OT * Continue serial KUB 07/07 * Postop day 1 from lysis of adhesions and resection of jejunal perforation with anastomosis * Continue NG tube to low intermittent suction, 1 L out since surgery yesterday--green bilious drainage * Continue pain control * Continue NPO status * Continue TPN and lipids 07/08 * Post op day 2 * NG tube to LIS bilious * General surgery following * Continue NPO status * Continue TPN and lipids * Continue IV fluids D5W & 40 KCL 07/09 * Water-soluble GI series obtained today and patient. NG tube was discontinued today. Patient was started on clear liquid diet. * TPN discontinued * General surgery following * Continue IV fluids for now (2) Community acquired pneumonia: Code(s): J18.9 - Pneumonia, unspecified organism Status: Acute Assessment and Plan: 07/07 * Chest x-ray showing developing patchy bilateral airspace disease compatible with pneumonia * Zosyn changed to cefepime per Infectious Disease pharmacist recommendation * Currently on room air (3) Chronic alcohol use: Code(s): F10.90 - Alcohol use, unspecified, uncomplicated Status: Chronic Assessment and Plan: Does not appear in withdrawal at this time will continue to monitor * Last drink 06/23 * Thiamine, folic acid, and multi-vitamin * PPI daily * librium PRN * CIWA daily * Monitor and replenish electrolytes as needed 07/07 * Currently tachycardic in the 130s with altered mental status and hallucinations * Continue CIWA protocol * Will hold off on Librium * Continue thiamine, folic acid, multivitamin * Last drink was on 06/23 however he drinks whiskey daily 07/08 * HR down to 90's * Continue CIWA protocol * CIWA score has been 18, he remains confused and agitated at times 07/09 * Continue CIWA protocol * CIWA scores near 6, he remains confused and agitated at times (4) Hypertension: Code(s): I10 - Essential (primary) hypertension Status: Acute Assessment and Plan: patient has been hypertensive systolics running between 180s to 160s. patient does not take any hypertensive medications at home will re-evaluate prior to discharge if patient will need oral antihypertensive medications at discharge after current acute issues are resolved. * I added hydralazine 20 mg IV push as needed for systolics greater than 160 * episodes of tachycardia surgery added metoprolol IV push PRN * BP per unit protocol 07/07 * Continue metoprolol 5 mg IV push q.4 hours for tachycardia * Continue hydralazine as needed for blood pressure control 07/08 * No change (5) ORTEGA (acute kidney injury): Code(s): N17.9 - Acute kidney failure, unspecified Status: Resolved Assessment and Plan: * Acute kidney injury CR 1.98 POA since resolved with IV fluids 07/07 * Resolved (6) Hypernatremia: Code(s): E87.0 - Hyperosmolality and hypernatremia Status: Resolved Assessment and Plan: * Patient now with hypernatremia at 149 discussed with surgery we will switch his IV fluids to dextrose 5 and water follow-up BMP later on today 07/07 * Resolved (7) Hyponatremia: Code(s): E87.1 - Hypo-osmolality and hyponatremia Status: Resolved Assessment and Plan: * Resolved likely secondary to dehydration and ETOH abuse patient was initially 130 POA resolved with IV fluids 07/07 * Resolved (8) Altered mental status: Code(s): R41.82 - Altered mental status, unspecified Status: Acute Assessment and Plan: Patient has had altered mental status ever since coming back from surgery yesterday. He is alert and oriented x1, will follow commands. Patient having hallucinations per nursing team. This could be from alcohol withdrawal verses polypharmacy versus unknown cause * Sodium is normal at 145, creatinine is normal at 1.20, blood sugars have been ranging 111-148, liver function was normal yesterday. * Patient has Eller catheter in place, UA was showing bacteria however urine culture was negative * Blood cultures are negative on preliminary read * Continue neuro checks * Continue CIWA protocol * Patient has not received any pain medications in the past 24 hours 07/08 * Continue CIWA protocol * Alert and oriented x2 * Continue neuro checks 07/09 * Will check UA today * Blood cultures pending and showing no growth to date on preliminary read * Continue neuro checks * Continue CIWA protocol Time Spent With Patient Time with patient: 25 - 35 minutes Subjective Date/time seen: 07/09/24 08:55 Interval history: Interval summary: This is a 64-year-old male with a significant past medical history of who presented to the hospital on 06/27/2024 with abdominal pain With associated nausea and vomiting. Workup in the hospital included a chest abdomen and pelvis CTA which was negative for PE and no cardiopulmonary disease, however did show a small bowel obstruction with transition zone in the terminal ileum area. Head CT was negative. Cervical spine CT was negative for any acute osseous abnormality, showed multilevel degenerative disc disease. An NG tube was placed while in the ED and follow-up KUB showed the NG tube in good position. On 06/28/2024 patient had a small bowel x-ray which showed high-grade small-bowel obstruction. initial labs showed a hemoglobin of 18.5, INR 1.1, sodium 130, chloride 90, bicarb 20, anion gap 20, creatinine 1.98, EGFR 34, blood sugars ra nging 171-218, lactic acid 2.5> 2.8> 1.2, magnesium 1.8, total bili 1.8, troponin 0.369> 0.4-2, proBNP 3980, TSH 3.940. UA was obtained which showed turbid urine appearance, greater than 1.045 urine specific gravity, 2+ urine protein, trace ketone, 1+ urine bilirubin, trace leukocytes, 11-20 urine RBC, 11-20 urine WBC, greater than 20 urine cast. Respiratory panel was negative for influenza a and B, RSV, COVID. Echocardiogram showed normal LV systolic function with an estimated EF of greater than 70%, diastolic dysfunction, small pericardial effusion. General surgery was consulted and treated conservatively at [facility] however patient was having high output through the NG tube and patient was sent for a small bowel x-ray on 07/05/2024 which showed persistent ileus versus small-bowel obstruction with contrast not having reach the distal most daily did loops of gas filled small bowel over the course of a 6 hour period of time. He had a repeat CT scan on 07/06/2024 which shown findings compatible with small bowel obstruction with transition point in the mid small bowel, small amount of ascites with mesenteric edema, small right pleural effusion with patchy bibasilar pulmonary consolidation. He was then taken to the OR on 07/06/[address] Shipman 4 lysis of adhesion with resection of the jejunal perforation with anastomosis. Patient was still having high output out of his NG tube postop with heart rate in the 130s and signs of dehydration. Another abdomen pelvis CT was obtained which shown small amount of pneumoperitoneum likely postoperative with evidence of recent midline incision, bowel distention/bowel obstruction is essentially resolved as compared to prior exam, small amount of ascites, small pleural effusions with bibasilar pulmonary edema /atelectasis. He was given 1.5 L bolus on 07/06/2024. He continues with NG tube and General surgery following. Subjective: Patient is alert and oriented x2 today. Patient passed his water soluble upper GI series and NG tube was discontinued today and he was started on clear liquid diet per General surgery recommendations. TPN has been discontinued. He continues to have hallucinations and is still currently on CINV protocol. Review of Systems Review of Systems: All systems reviewed & are unremarkable except as noted in HPI and below Exam Narrative: General: In no acute distress Head: atraumatic, encephalopathy and confused today Cardiac: Normal S1 and S2. Normal sinus rhythm 80s to 90s, No murmur, gallops or friction rubs, peripheral pulses intact. Respiratory: Lungs clear to auscultation, no adventitious lung sounds, currently on room air Gastrointestinal: taunt, mildly distended, non-tender, hypoactive bowel sounds. : Eller catheter in place draining clear yellow urine Skin: Midline incision covered with dressing Neuro: Alert and oriented x2--improving Psych: Agitation at times Objective Data Vital Signs Vital Signs: Vital Signs - 24 hr 07/08/24 10:00 07/08/24 12:00 07/08/24 12:45 Temperature 98.7 F Pulse Rate 98 85 Pulse Rate [Monitor] Pulse Rate [Pedal (Dorsalis Pedis)] 98 Respiratory Rate 16 Blood Pressure 159/81 H Pulse Oximetry 94 Oxygen Delivery Room Air 07/08/24 14:00 07/08/24 14:00 07/08/24 15:00 Temperature 97 F L Pulse Rate 94 Pulse Rate [Monitor] Pulse Rate [Pedal (Dorsalis Pedis)] 98 87 Respiratory Rate 18 Blood Pressure 146/88 H Pulse Oximetry 96 Oxygen Delivery 07/08/24 16:00 07/08/24 18:00 07/08/24 20:00 Temperature Pulse Rate 95 Pulse Rate [Monitor] Pulse Rate [Pedal (Dorsalis Pedis)] 98 99 Respiratory Rate Blood Pressure Pulse Oximetry Oxygen Delivery 07/08/24 20:00 07/08/24 20:00 07/08/24 20:15 Temperature 97.9 F Pulse Rate 96 96 Pulse Rate [Monitor] Pulse Rate [Pedal (Dorsalis Pedis)] Respiratory Rate 20 Blood Pressure 166/89 H Pulse Oximetry 97 Oxygen Delivery Room Air 07/09/24 00:00 07/09/24 00:22 07/09/24 04:00 Temperature 97.4 F L Pulse Rate 81 92 83 Pulse Rate [Monitor] Pulse Rate [Pedal (Dorsalis Pedis)] Respiratory Rate 16 Blood Pressure 163/98 H Pulse Oximetry 95 Oxygen Delivery 07/09/24 05:38 07/09/24 07:53 07/09/24 08:00 Temperature 97.6 F 97.5 F L Pulse Rate 93 80 Pulse Rate [Monitor] 86 Pulse Rate [Pedal (Dorsalis Pedis)] Respiratory Rate 18 20 Blood Pressure 173/90 H 150/82 H Pulse Oximetry 97 96 Oxygen Delivery Intake/Output Intake/Output: Intake & Output 07/06/24 07/07/24 07/08/24 07/09/24 23:59 23:59 23:59 23:59 Intake Total 2970.2 2354.1 3852.5 2622.5 Output Total 1500 2750 3650 1400 Balance 1470.2 -395.9 202.5 1222.5 Meds/Results Medications: Active Medications Generic Name Dose Route Start Last Admin Trade Name Freq PRN Reason Stop Dose Admin Dextrose 12.5 gm 07/02/24 13:59 Dextrose 50% 25 Gm/50 Ml Syringe IV PUSH PRN PRN Hypoglycemia Protocol Enoxaparin Sodium 40 mg 06/29/24 09:00 07/09/24 07:54 Enoxaparin 40 Mg/0.4 Ml Syringe SUB-Q 40 mg DAILY VANDANA Administration Fentanyl Citrate 12.5 mcg 07/04/24 16:56 Fentanyl Citrate Inj (*Crx) 100 Mcg/2 Ml Vial IV PUSH Q2H PRN Breakthrough Pain Rated 4-6 or NPO Fentanyl Citrate 25 mcg 07/04/24 16:56 07/08/24 22:05 Fentanyl Citrate Inj (*Crx) 100 Mcg/2 Ml Vial IV PUSH 25 mcg Q2H PRN Administration Breakthrough Pain Rated 7-10 or NPO Glucagon 1 mg 07/02/24 13:59 Glucagon For Inj 1 Mg Vial IM PRN PRN Hypoglycemia Protocol Glucose 15 gm 07/02/24 13:59 Glucose Oral Gel 15 Gm Of Glucse In 37.5 Gm Tube PO PRN PRN Hypoglycemia Protocol Hydralazine HCl 20 mg 07/02/24 10:27 07/05/24 15:10 Hydralazine Hcl 20 Mg/Ml Vial IV PUSH 20 mg Q6H PRN Administration Hypertension Dextrose 1,000 mls @ 50 mls/hr 07/02/24 13:56 Dextrose 10% IV CONT .Q20H PRN if PN is interrupted Dextrose 1,000 mls @ 100 mls/hr 07/02/24 13:59 Dextrose 5% 1,000 Ml IVPB PRN PRN Hypoglycemia Protocol Ibuprofen 800 mg in 200 mls @ 400 mls/hr 07/06/24 18:50 07/09/24 06:18 Caldolor 800 Mg/200 Ml IVPB 400 mls/hr Q6H PRN Administration Breakthrough Pain Rated 1-3 or NPO Piperacillin/Tazobactam/Dextrose 3.375 gm in 50 mls @ 100 mls/hr 07/06/24 20:00 07/09/24 07:54 Zosyn 3.375 Gm/Ns 50 Ml IVPB 100 mls/hr Q6H VANDANA Administration Multivitamins 1.25 ml/ 1,002.5 mls @ 70 mls/hr 07/06/24 21:00 07/09/24 06:09 Multivitamins 1.25 ml/ Amino IV CONT 70 mls/hr Acids/Electrolytes/Dextrose .[id number] VANDANA Administration Protocol Fat Emulsion Intravenous 250 mls @ 20.833 mls/hr 07/06/24 21:00 07/08/24 20:23 Lipids 20% IVPB 20.83 mls/hr Q24H VANDANA Administration Potassium Chloride 40 meq/ 1,020 mls @ 100 mls/hr 07/08/24 16:20 07/09/24 04:52 Dextrose IV CONT 100 mls/hr .[id number] VANDANA Administration Insulin Human Regular 0 units 07/02/24 18:00 07/09/24 05:37 Insulin Human Regular (*Bkc) 100 Units/Ml SUB-Q Not Given Q6HR [facility] Protocol Lorazepam 2 mg 07/07/24 16:01 07/08/24 20:45 Lorazepam Inj (*Crx) 2 Mg/Ml Vial IV PUSH 2 mg Q4H PRN Administration CIWA 8-15 Metoprolol Tartrate 5 mg 07/02/24 08:51 07/07/24 20:13 Metoprolol Tartrate Inj 5 Mg/5 Ml Vial IV PUSH 5 mg Q4H PRN Administration Tachycardia Naloxone HCl 0.1 mg 07/06/24 18:50 Naloxone Hcl 0.4 Mg/Ml Vial IV PUSH Q2M PRN Opiate Reversal Ondansetron HCl 4 mg 06/27/24 08:21 07/07/24 20:13 Ondansetron Inj 4 Mg/2 Ml Vial IV PUSH 4 mg Q4H PRN Administration Nausea Pantoprazole Sodium 40 mg 06/28/24 09:00 07/09/24 07:53 Pantoprazole Sodium Iv 40 Mg Vial IV PUSH 40 mg QAM VANDANA Administration Sodium Chloride 10 ml 07/02/24 22:00 07/09/24 06:06 Central Line Flush IV PUSH 10 ml Q8HR VANDANA Administration Sodium Chloride 10 ml 07/02/24 15:38 07/04/24 14:13 Central Line Flush IV PUSH 10 ml PRN PRN Administration with TPN bag changes Sodium Chloride 20 ml 07/02/24 15:38 Central Line Flush IV PUSH PRN PRN after blood draws Thiamine HCl 100 mg 06/27/24 09:00 07/09/24 07:53 Thiamine Hcl 200 Mg/2 Ml Vial IV PUSH 100 mg DAILY VANDANA Administration Radiology Results: ITS Impressions Chest/Abdomen/Pelvis CTA 06/27/24 06:17 IMPRESSION: CHEST: 1. No pulmonary embolism. No aortic dissection 2. No acute cardiopulmonary pathology. ABDOMEN/PELVIS: 1. Small bowel obstruction with the transition zone in the terminal ileum area. Clinical correlation advised. 2. No evidence of appendicitis, or diverticulitis. Head CT 06/27/24 06:59 IMPRESSION: No acute intracranial findings. Cervical Spine CT 06/27/24 07:58 IMPRESSION: No acute osseous abnormality cervical spine. Multilevel degenerative disc disease. NG Tube Placement 07/02/24 07:18 IMPRESSION: Fluoroscopy used during NG tube placement in the stomach. Small Bowel X-Ray 07/05/24 16:01 IMPRESSION: 1. Persistent ileus versus small bowel obstruction with contrast not having re ached the distalmost dilated loops of gas-filled small bowel over the course of 6 hours. Abdomen/Pelvis CT 07/07/24 05:20 Impression: Small amount of pneumoperitoneum, likely postoperative with evidence of recent midline incision stapling since prior exam. Correlate with surgical history. Bowel distention/bowel obstruction is essentially resolved as compared to prior exam. Small bowel evaluation is limited on the current exam due to extensive matting together of bowel loops. Small amount of ascites. Small pleural effusions with bibasilar pulmonary edema/atelectasis versus pneumonia. Correlate clinically. Chest X-Ray 07/08/24 13:34 Impression: 1: Developing patchy bilateral airspace disease, compatible with pneumonia. Venous Doppler Study 07/09/24 00:02 IMPRESSION: Negative right upper extremity venous US. No deep vein thrombosis. Abdomen X-Ray 07/09/24 06:47 Impression: Nonspecific bowel gas pattern with NG tube in place. Labs Labs: Laboratory Results - last 24 hr 07/08/24 07/08/24 07/09/24 05:31 11:28 00:25 WBC RBC Hgb Hct MCV MCH MCHC RDW Plt Count MPV Immature Gran % (Auto) Neut % (Auto) Lymph % (Auto) Brule % (Auto) Eos % (Auto) Baso % (Auto) Lymph # (Auto) Brule # (Auto) Eos # (Auto) Baso # (Auto) Abs Immat Gran (auto) Absolute Neuts (auto) Absolute Nucleated RBC Nucleated RBC % Sodium Potassium Chloride Carbon Dioxide Anion Gap BUN Creatinine Estim Creat Clear Calc Estimated GFR Glucose POC Capillary Glucose 111 H 128 H Calcium Phosphorus C-Reactive Protein 34.1 H 07/09/24 07/09/24 05:41 05:47 WBC 10.1 H RBC 3.03 L Hgb 9.4 L Hct 30.9 L MCV 102.0 H MCH 31.0 MCHC 30.4 L RDW 14.6 H Plt Count 249 MPV 11.5 H Immature Gran % (Auto) 1.6 H Neut % (Auto) 76.9 H Lymph % (Auto) 12.4 L Brule % (Auto) 7.2 Eos % (Auto) 1.4 Baso % (Auto) 0.5 Lymph # (Auto) 1.26 Brule # (Auto) 0.7 H Eos # (Auto) 0.1 Baso # (Auto) 0.1 Abs Immat Gran (auto) 0.16 H Absolute Neuts (auto) 7.8 H Absolute Nucleated RBC 0.000 Nucleated RBC % 0.0 Sodium 147 H Potassium 3.7 Chloride 123 H Carbon Dioxide 19 L Anion Gap 5 BUN 21 H Creatinine 0.94 Estim Creat Clear Calc 66 Estimated GFR > 60 Glucose 80 POC Capillary Glucose 96 Calcium 7.5 L Phosphorus 3.0 C-Reactive Protein 19.9 H Quality VTE Prophylaxis VTE prophylaxis: pharmacologic ordered
--- NOTE | 2024-07-09 10:06 | PC.NURSE ---
Pt. down to xray for SBS via stretcher. NGT clamped. TPN and 40K in D5 running through PICC line.
--- NOTE | 2024-07-09 10:22 | PCNFU ---
Nutrition Follow-Up Complete: Inadequate energy intake related to small bowel obstruction as evidenced by NPO day 5 Meet estimated nutrition needs - Meeting needs with TPN PO intake when medically able - Progressing slowly Goal: Pt current nutrition is NPO, TPN Clinmix E 08/05 with lipids @ 70 ml/h . Nutrition recommendation: No new recommendations. Diet advancement per surgery Last recorded weight is 77.2 kg. Bowel Motility: +1 BM 07/08/24 Labs Reviewed: Hgb 9.4, Hct 30.9, Na 147, BUN 21 Meds Noted: Thiamine, protonix, lovenox Skin: Incision to abdomen Additional Notes: TPN @ 70 ml/h providing 1693 kcal, 84 g protein, 1930 ml total volume/day. Meeting needs @ 22 kcal/kg, 1 g protein/kg. Adequate for needs. Diet may advance to liquids soon. Recommend continuing TPN until pt is eating 50% of solid diet. Continue to follow. Monitoring orders, TPN tolerance, labs, weights, meds, output, plan of care Follow up Friday/Friday
[2024-07-09 12:49] LABS: Triglycerides 183 mg/dL (<150)
--- NOTE | 2024-07-09 13:01 | PC.NURSE ---
Pt back from xray via stretcher at 12:50. Pt back in bed, NGT hooked up to low continuous suction after verifying with radiology staff that it is ok to chain hooker NGT suction.
[2024-07-09 13:04] LABS: Glucose Point of Care 99 mg/dl (65-105)
[2024-07-09] MEDS: CEFEPIME 2 GM/NS 50 ML 2 GM/50 ML BAG IVPB ×2 (13:11→21:41)
[2024-07-09] MEDS: metroNIDAZOLE 500 MG/ISO 100ML 500 MG/100 ML BAG 100 MG IVPB ×2 (13:11→22:29)
--- NOTE | 2024-07-09 14:44 | PCPTNOTE ---
Attempted re-evaluation 1440, patient needs cleaned up by nursing staff. Will follow.
[2024-07-09] MEDS: fentaNYL CITRATE INJ (*CRX) 100 MCG/2 ML VIAL 25 MCG IV PUSH (15:06)
[2024-07-09] MEDS: hydrALAZINE HCL 20 MG/ML VIAL IV PUSH (16:20)
[2024-07-09 16:22] LABS: Add Urine Microscopic? YES; Appearance Urine Clear (Clear); Bacteria Urine None Seen /hpf; Bilirubin Urine Negative (Negative); Blood Urine Non-Hemolyzed Trace (Negative); Color Urine Yellow (Yellow); Glucose Urine UA Negative (Negative); Ketones Urine Negative (Negative); Leukocyte Esterase Ur Trace LEU/UL (Negative); Nitrate Urine Negative (Negative); Protein Urine Trace mg/dL (Negative); RBC Urine 0-2 /hpf (0-2); Specific Grav Ur 1.018 (1.001-1.035); Squamous Epithelial Cell Urine None Seen /hpf (Few); Urobilinogen Urine 0.2 mg/dL (<2.0); WBC Urine 0-5 /hpf (0-3)
[2024-07-09 18:14] LABS: Glucose Point of Care 93 mg/dl (65-105)
[2024-07-09] MEDS: FAT EMULSIONS IV 20% 250 ML 20.83 ML IVPB (21:41)
[2024-07-09] MEDS: LORazepam INJ (*CRX) 2 MG/ML VIAL IV PUSH (22:02)
[2024-07-10] VITALS (11 sets, daily range): BP systolic 129–185; BP diastolic 70–102; PULSE 94–126; RESP 16–22; TEMP 36.1–37.1; O2SAT 95–99
[2024-07-10 01:09] LABS: Glucose Point of Care 100 mg/dl (65-105)
[2024-07-10] MEDS: CEFEPIME 2 GM/NS 50 ML 2 GM/50 ML BAG IVPB ×3 (05:16→21:50)
[2024-07-10] MEDS: hydrALAZINE HCL 20 MG/ML VIAL IV PUSH ×2 (05:28→14:06)
[2024-07-10] MEDS: metroNIDAZOLE 500 MG/ISO 100ML 500 MG/100 ML BAG 100 MG IVPB ×3 (05:52→21:50)
[2024-07-10 06:47] LABS: Basophils Percent Auto 0.4 % (0.2-1.2); Eosinophils Absolute Auto 0.2 K/mm3 (0-0.3); Eosinophils Percent Auto 1.4 % (0-4.4); Hematocrit 33.9 % (42.0-52.0); Hemoglobin 10.9 g/dL (14.0-18.0); Immature Granulocyte Absolute 0.12 K/mm3 (0.00-0.031); Immature Granulocyte Percent A 1.1 % (0-0.5); Lymphocytes Absolute Auto 1.47 K/mm3 (0.9-3.2); Lymphocytes Percent Auto 13.7 % (18.3-44.2); Mean Corpuscular HGB Conc 32.2 g/dl (32-36); Mean Corpuscular Hemoglobin 30.5 pg (26-34); Mean Platelet Volume 11.3 fl (7.4-10.4); Monocytes Absolute Auto 0.8 K/mm3 (0.1-0.6); Monocytes Percent Auto 7.1 % (2.6-8.5); Neutrophils Absolute Auto 8.2 K/mm3 (1.3-6.7); Neutrophils Percent Auto 76.3 % (45.5-73.1); Platelet Count Result 287 k/mm3 (150-375); Red Blood Count 3.57 M/mm3 (4.6-6.20); Red Cell Distribution Width 14.1 % (11.5-14.5); White Blood Count 10.8 K/mm3 (4.5-10.0)
[2024-07-10 07:07] LABS: Anion Gap 9 mmol/L (4-12); Blood Urea Nitrogen 17 mg/dL (9-20); CRP 8.1 mg/dL (<1.0); Carbon Dioxide 17 mmol/L (22-30); Chloride 118 mmol/L (98-107); Estimated CRCL calculation 72 ml/min; Estimated Glomerular Filt Rate > 60; Glucose 107 mg/dL (65-110); Potassium 3.3 mmol/L (3.4-5.0); Sodium 144 mmol/L (137-145)
[2024-07-10] MEDS: CENTRAL LINE FLUSH 10 ML IV PUSH ×2 (07:35→21:51)
--- NOTE | 2024-07-10 09:33 | PCPTNOTE ---
Attempted PT re-evaluation. Pt refusing any type of activity this date due to pain. Nurse aware. Will follow.
--- NOTE | 2024-07-10 09:33 | PCOTNOTE ---
Attempted to see for OT re-evaluation. Patient declining any/all activity at this time.
[2024-07-10] MEDS: PANTOPRAZOLE SODIUM IV 40 MG VIAL IV PUSH (10:14)
[2024-07-10] MEDS: ENOXAPARIN 40 MG/0.4 ML SYRINGE SUB-Q (10:14)
[2024-07-10] MEDS: THIAMINE HCL 200 MG/2 ML VIAL 100 MG IV PUSH (10:14)
[2024-07-10] MEDS: AMINO ACIDS 5%/D15W/E-LYTES/CA 1,000 ML with MULTIVITAMINS-12 INJ VIAL 1 1.25 ML, MULTI... 70 ML IV CONT (10:25)
[2024-07-10 11:54] LABS: Glucose Point of Care 113 mg/dl (65-105)
--- NOTE | 2024-07-10 12:01 | P.PNIM_ITS ---
Progress Note: A&P Assessment and Plan (1) Small bowel obstruction: Code(s): K56.609 - Unspecified intestinal obstruction, unspecified as to partial versus complete obstruction Status: Acute Assessment and Plan: Patient admitted after complaints of ABD pain with N/V. CT chest abdomen pelvis CTA was performed which showed no PE no aortic dissection. Abdomen pelvis showed small-bowel obstruction with the transition zone in the terminal ileum area. No evidence of appendicitis or diverticulitis. General surgery was consulted and patient was taken for exploratory laparotomy 06/29/2024 for repair serosal tears x2. IV fluids switched to Dextrose 5/water NA up to 149 and BS 68. Patient had pulled out his NG tube which was replaced under fluoroscopy, mild distention noted reporting having flatulence and bowel movement reported overnight, Tolerating TPN . Continue to encourage patient to get up and perform activity ordered PT/OT. reported he appeared more lethargic yesterday afternoon pain medication adjusted by surgery less lethargic today small bowel series showed persistent ileus versus small-bowel obstruction with contrast not having reach the distal most dilated loops . Patient post-op day 7 KUB with A continued postoperative SBO will need to continue NPO and NG tube * Patient going back for exploratory surgery due to ongoing SBO 07/06/2024 * NPO with Ice chips * NG tube to suction continued for decompression * pain control * ambulate as tolerated * Antiemetics * Will advance diet per surgery once bowel function has returned * Incentive spirometer * PT/OT * Continue serial KUB 07/07 * Postop day 1 from lysis of adhesions and resection of jejunal perforation with anastomosis * Continue NG tube to low intermittent suction, 1 L out since surgery yesterday--green bilious drainage * Continue pain control * Continue NPO status * Continue TPN and lipids 07/08 * Post op day 2 * NG tube to LIS bilious * General surgery following * Continue NPO status * Continue TPN and lipids * Continue IV fluids D5W & 40 KCL 07/09 * Water-soluble GI series obtained today and patient. NG tube was discontinued today. Patient was started on clear liquid diet. * TPN continued * General surgery following * Continue IV fluids for now 07/10 * Tolerating some clear liquids today * Continue TPN for now * For to general surgery team for advancement in diet (2) Community acquired pneumonia: Code(s): J18.9 - Pneumonia, unspecified organism Status: Acute Assessment and Plan: 07/07 * Chest x-ray showing developing patchy bilateral airspace disease compatible with pneumonia * Zosyn changed to cefepime per Infectious Disease pharmacist recommendation * Currently on room air 07/10 * No change to current treatment plan (3) Chronic alcohol use: Code(s): F10.90 - Alcohol use, unspecified, uncomplicated Status: Chronic Assessment and Plan: Does not appear in withdrawal at this time will continue to monitor * Last drink 06/23 * Thiamine, folic acid, and multi-vitamin * PPI daily * librium PRN * CIWA daily * Monitor and replenish electrolytes as needed 07/07 * Currently tachycardic in the 130s with altered mental status and hallucinations * Continue CIWA protocol * Will hold off on Librium * Continue thiamine, folic acid, multivitamin * Last drink was on 06/23 however he drinks whiskey daily 07/08 * HR down to 90's * Continue CIWA protocol * CIWA score has been 18, he remains confused and agitated at times 07/09 * Continue CIWA protocol * CIWA scores near 6, he remains confused and agitated at times 07/10 * Continues to improve * Continue CIWA protocol (4) Hypertension: Code(s): I10 - Essential (primary) hypertension Status: Acute Assessment and Plan: patient has been hypertensive systolics running between 180s to 160s. patient does not take any hypertensive medications at home will re-evaluate prior to discharge if patient will need oral antihypertensive medications at discharge after current acute issues are resolved. * I added hydralazine 20 mg IV push as needed for systolics greater than 160 * episodes of tachycardia surgery added metoprolol IV push PRN * BP per unit protocol 07/07 * Continue metoprolol 5 mg IV push q.4 hours for tachycardia * Continue hydralazine as needed for blood pressure control 07/08 * No change (5) ORTEGA (acute kidney injury): Code(s): N17.9 - Acute kidney failure, unspecified Status: Resolved Assessment and Plan: * Acute kidney injury CR 1.98 POA since resolved with IV fluids 07/07 * Resolved (6) Hypernatremia: Code(s): E87.0 - Hyperosmolality and hypernatremia Status: Resolved Assessment and Plan: * Patient now with hypernatremia at 149 discussed with surgery we will switch his IV fluids to dextrose 5 and water follow-up BMP later on today 07/07 * Resolved (7) Hyponatremia: Code(s): E87.1 - Hypo-osmolality and hyponatremia Status: Resolved Assessment and Plan: * Resolved likely secondary to dehydration and ETOH abuse patient was initially 130 POA resolved with IV fluids 07/07 * Resolved (8) Altered mental status: Code(s): R41.82 - Altered mental status, unspecified Status: Acute Assessment and Plan: Patient has had altered mental status ever since coming back from surgery yesterday. He is alert and oriented x1, will follow commands. Patient having hallucinations per nursing team. This could be from alcohol withdrawal verses polypharmacy versus unknown cause * Sodium is normal at 145, creatinine is normal at 1.20, blood sugars have been ranging 111-148, liver function was normal yesterday. * Patient has Eller catheter in place, UA was showing bacteria however urine culture was negative * Blood cultures are negative on preliminary read * Continue neuro checks * Continue CIWA protocol * Patient has not received any pain medications in the past 24 hours 07/08 * Continue CIWA protocol * Alert and oriented x2 * Continue neuro checks 07/09 * Will check UA today * Blood cultures pending and showing no growth to date on preliminary read * Continue neuro checks * Continue CIWA protocol 07/10 * UA negative * Blood cultures showing no growth to date on preliminary read * Currently alert and oriented times 2-3, much improved * Continue CIWA protocol * Ammonia level <9 * Continue neuro checks q.4 hours Time Spent With Patient Time with patient: 25 - 35 minutes Subjective Date/time seen: 07/10/24 12:01 Interval history: Interval summary: This is a 64-year-old male with a significant past medical history of who presented to the hospital on 06/27/2024 with abdominal pain With associated nausea and vomiting. Workup in the hospital included a chest abdomen and pelvis CTA which was negative for PE and no cardiopulmonary disease, however did show a small bowel obstruction with transition zone in the terminal ileum area. Head CT was negative. Cervical spine CT was negative for any acute osseous abnormality, showed multilevel degenerative disc disease. An NG tube was placed while in the ED and follow-up KUB showed the NG tube in good position. On 06/28/2024 patient had a small bowel x-ray which showed high-grade small-bowel obstruction. initial labs showed a hemoglobin of 18.5, INR 1.1, sodium 130, chloride 90, bicarb 20, anion gap 20, creatinine 1.98, EGFR 34, blood sugars ranging 171-218, lactic acid 2.5> 2.8> 1.2, magnesium 1.8, total bili 1.8, troponin 0.369> 0.4-2, proBNP 3980, TSH 3.940. UA was obtained which showed turbid urine appearance, greater than 1.045 urine specific gravity, 2+ urine protein, trace ketone, 1+ urine bilirubin, trace leukocytes, 11-20 urine RBC, 11-20 urine WBC, greater than 20 urine cast. Respiratory panel was negative for influenza a and B, RSV, COVID. Echocardiogram showed normal LV systolic function with an estimated EF of greater than 70%, diastolic dysfunction, small pericardial effusion. General surgery was consulted and treated conservatively at 1st however patient was having high output through the NG tube and patient was sent for a small bowel x-ray on 07/05/2024 which showed persistent ileus versus small-bowel obstruction with contrast not having reach the distal most daily did loops of gas filled small bowel over the course of a 6 hour period of time. He had a repeat CT scan on 07/06/2024 which shown findings compatible with small bowel obstruction with transition point in the mid small bowel, small amount of ascites with mesenteric edema, small right pleural effusion with patchy bibasilar pulmonary consolidation. He was then taken to the OR on 07/06/[address] Shipman 4 lysis of adhesion with resection of the jejunal perforation with anastomosis. Patient was still having high output out of his NG tube postop with heart rate in the 130s and signs of dehydration. Another abdomen pelvis CT was obtained which shown small amount of pneumoperitoneum likely postoperative with evidence of recent midline incision, bowel distention/bowel obstruction is essentially resolved as compared to prior exam, small amount of ascites, small pleural effusions with bibasilar pulmonary edema /atelectasis. He was given 1.5 L bolus on 07/06/2024. He continues with NG tube and General surgery following. Subjective: Patient is alert and oriented x2-3 today--improving. Labs reviewed. Review of Systems Review of Systems: All systems reviewed & are unremarkable except as noted in HPI and below Exam Narrative: General: In no acute distress Head: atraumatic, encephalopathy and confused today Cardiac: Normal S1 and S2. Normal sinus rhythm 80s to 90s, No murmur, gallops or friction rubs, peripheral pulses intact. Respiratory: Lungs clear to auscultation, no adventitious lung sounds, currently on room air Gastrointestinal: taunt, mildly distended, non-tender, hypoactive bowel sounds. Having BMs : Eller catheter in place draining clear yellow urine Skin: Midline incision covered with dressing Neuro: Alert and oriented x2-3--improving Objective Data Vital Signs Vital Signs: Vital Signs - 24 hr 07/09/24 13:10 07/09/24 16:00 07/09/24 16:00 Temperature 97.5 F L 97.6 F Pulse Rate 89 82 83 Respiratory Rate 20 20 Blood Pressure 175/84 H 160/81 H Pulse Oximetry 96 98 Oxygen Delivery 07/09/24 16:53 07/09/24 20:00 07/09/24 20:00 Temperature 98.6 F Pulse Rate 103 H Respiratory Rate 20 Blood Pressure 151/73 H 154/87 H Pulse Oximetry 97 Oxygen Delivery Room Air 07/09/24 20:00 07/10/24 00:00 07/10/24 00:00 Temperature 98.6 F Pulse Rate 107 H 99 98 Respiratory Rate 20 Blood Pressure 159/87 H Pulse Oximetry 96 Oxygen Delivery 07/10/24 04:00 07/10/24 05:15 07/10/24 07:50 Temperature 96.9 F L Pulse Rate 94 97 Respiratory Rate 16 Blood Pressure 185/102 H 153/83 H Pulse Oximetry 98 Oxygen Delivery 07/10/24 08:00 07/10/24 08:00 07/10/24 08:01 Temperature 97.0 F L Pulse Rate 118 H 121 H Respiratory Rate 20 Blood Pressure 159/77 H Pulse Oximetry 99 Oxygen Delivery Room Air Intake/Output Intake/Output: Intake & Output 07/07/24 07/08/24 07/09/24 07/10/24 23:59 23:59 23:59 23:59 Intake Total 2354.1 3852.5 5365.0 1240.2 Output Total 2750 3650 2850 1900 Balance -395.9 202.5 2515.0 -659.8 Meds/Results Medications: Active Medications Generic Name Dose Route Start Last Admin Trade Name Freq PRN Reason Stop Dose Admin Dextrose 12.5 gm 07/02/24 13:59 Dextrose 50% 25 Gm/50 Ml Syringe IV PUSH PRN PRN Hypoglycemia Protocol Enoxaparin Sodium 40 mg 06/29/24 09:00 07/10/24 10:14 Enoxaparin 40 Mg/0.4 Ml Syringe SUB-Q 40 mg DAILY VANDANA Administration Fentanyl Citrate 12.5 mcg 07/04/24 16:56 Fentanyl Citrate Inj (*Crx) 100 Mcg/2 Ml Vial IV PUSH Q2H PRN Breakthrough Pain Rated 4-6 or NPO Fentanyl Citrate 25 mcg 07/04/24 16:56 07/09/24 15:06 Fentanyl Citrate Inj (*Crx) 100 Mcg/2 Ml Vial IV PUSH 25 mcg Q2H PRN Administration Breakthrough Pain Rated 7-10 or NPO Glucagon 1 mg 07/02/24 13:59 Glucagon For Inj 1 Mg Vial IM PRN PRN Hypoglycemia Protocol Glucose 15 gm 07/02/24 13:59 Glucose Oral Gel 15 Gm Of Glucse In 37.5 Gm Tube PO PRN PRN Hypoglycemia Protocol Hydralazine HCl 20 mg 07/02/24 10:27 07/10/24 05:28 Hydralazine Hcl 20 Mg/Ml Vial IV PUSH 20 mg Q6H PRN Administration Hypertension Dextrose 1,000 mls @ 50 mls/hr 07/02/24 13:56 Dextrose 10% IV CONT .Q20H PRN if PN is interrupted Dextrose 1,000 mls @ 100 mls/hr 07/02/24 13:59 Dextrose 5% 1,000 Ml IVPB PRN PRN Hypoglycemia Protocol Ibuprofen 800 mg in 200 mls @ 400 mls/hr 07/06/24 18:50 07/09/24 06:18 Caldolor 800 Mg/200 Ml IVPB 400 mls/hr Q6H PRN Administration Breakthrough Pain Rated 1-3 or NPO Multivitamins 1.25 ml/ 1,002.5 mls @ 70 mls/hr 07/06/24 21:00 07/10/24 10:25 Multivitamins 1.25 ml/ Amino IV CONT 70 mls/hr Acids/Electrolytes/Dextrose .[id number] VANDANA Administration Protocol Fat Emulsion Intravenous 250 mls @ 20.833 mls/hr 07/06/24 21:00 07/09/24 21:41 Lipids 20% IVPB 20.83 mls/hr Q24H VANDANA Administration Potassium Chloride 40 meq/ 1,020 mls @ 100 mls/hr 07/08/24 16:20 07/09/24 23:39 Dextrose IV CONT 100 mls/hr .[id number] VANDANA Administration Cefepime HCl 2 gm in 50 mls @ 100 mls/hr 07/09/24 14:00 07/10/24 05:16 Maxipime 2 Gm/Ns 50 Ml IVPB 100 mls/hr Q8H VANDANA Administration Metronidazole 500 mg in 100 mls @ 100 mls/hr 07/09/24 14:00 07/10/24 05:52 Flagyl 500 Mg/Iso Soln 100 Ml IVPB 100 mls/hr Q8H VANDANA Administration Insulin Human Regular 0 units 07/02/24 18:00 07/10/24 07:34 Insulin Human Regular (*Bkc) 100 Units/Ml SUB-Q Not Given Q6HR VANDANA Protocol Lorazepam 2 mg 07/07/24 16:01 07/09/24 22:02 Lorazepam Inj (*Crx) 2 Mg/Ml Vial IV PUSH 2 mg Q4H PRN Administration [facility] 8-15 Metoprolol Tartrate 5 mg 07/02/24 08:51 07/07/24 20:13 Metoprolol Tartrate Inj 5 Mg/5 Ml Vial IV PUSH 5 mg Q4H PRN Administration Tachycardia Naloxone HCl 0.1 mg 07/06/24 18:50 Naloxone Hcl 0.4 Mg/Ml Vial IV PUSH Q2M PRN Opiate Reversal Ondansetron HCl 4 mg 06/27/24 08:21 07/07/24 20:13 Ondansetron Inj 4 Mg/2 Ml Vial IV PUSH 4 mg Q4H PRN Administration Nausea Pantoprazole Sodium 40 mg 06/28/24 09:00 07/10/24 10:14 Pantoprazole Sodium Iv 40 Mg Vial IV PUSH 40 mg QAM VANDANA Administration Sodium Chloride 10 ml 07/02/24 22:00 07/10/24 07:35 Central Line Flush IV PUSH 10 ml Q8HR VANDANA Administration Sodium Chloride 10 ml 07/02/24 15:38 07/04/24 14:13 Central Line Flush IV PUSH 10 ml PRN PRN Administration with TPN bag changes Sodium Chloride 20 ml 07/02/24 15:38 Central Line Flush IV PUSH PRN PRN after blood draws Thiamine HCl 100 mg 06/27/24 09:00 07/10/24 10:14 Thiamine Hcl 200 Mg/2 Ml Vial IV PUSH 100 mg DAILY VANDANA Administration Radiology Results: ITS Impressions Chest/Abdomen/Pelvis CTA 06/27/24 06:17 IMPRESSION: CHEST: 1. No pulmonary embolism. No aortic dissection 2. No acute cardiopulmonary pathology. ABDOMEN/PELVIS: 1. Small bowel obstruction with the transition zone in the terminal ileum area. Clinical correlation advised. 2. No evidence of appendicitis, or diverticulitis. Head CT 06/27/24 06:59 IMPRESSION: No acute intracranial findings. Cervical Spine CT 06/27/24 07:58 IMPRESSION: No acute osseous abnormality cervical spine. Multilevel degenerative disc disease. NG Tube Placement 07/02/24 07:18 IMPRESSION: Fluoroscopy used during NG tube placement in the stomach. Small Bowel X-Ray 07/05/24 16:01 IMPRESSION: 1. Persistent ileus versus small bowel obstruction with contrast not having reached the distalmost dilated loops of gas-filled small bowel over the course of 6 hours. Abdomen/Pelvis CT 07/07/24 05:20 Impression: Small amount of pneumoperitoneum, likely postoperative with evidence of recent midline incision stapling since prior exam. Correlate with surgical history. Bowel distention/bowel obstruction is essentially resolved as compared to prior exam. Small bowel evaluation is limited on the current exam due to extensive matting together of bowel loops. Small amount of ascites. Small pleural effusions with bibasilar pulmonary edema/atelectasis versus pneumonia. Correlate clinically. Chest X-Ray 07/08/24 13:34 Impression: 1: Developing patchy bilateral airspace disease, compatible with pneumonia. Venous Doppler Study 07/09/24 00:02 IMPRESSION: Negative right upper extremity venous US. No deep vein thrombosis. Abdomen X-Ray 07/09/24 06:47 Impression: Nonspecific bowel gas pattern with NG tube in place. Upper GI Series 07/09/24 13:13 IMPRESSION: 1. No bowel obstruction or ileus with normal small bowel transit time and normal caliber and mucosal fold pattern to the small bowel. Labs Labs: Laboratory Results - last 24 hr 07/09/24 07/09/24 07/09/24 05:47 12:58 16:08 WBC RBC Hgb Hct MCV MCH MCHC RDW Plt Count MPV Immature Gran % (Auto) Neut % (Auto) Lymph % (Auto) Edgar % (Auto) Eos % (Auto) Baso % (Auto) Lymph # (Auto) Edgar # (Auto) Eos # (Auto) Baso # (Auto) Abs Immat Gran (auto) Absolute Neuts (auto) Absolute Nucleated RBC Nucleated RBC % Sodium Potassium Chloride Carbon Dioxide Anion Gap BUN Creatinine Estim Creat Clear Calc Estimated GFR Glucose POC Capillary Glucose 99 Calcium C-Reactive Protein Triglycerides 183 H Urine Color Yellow Urine Appearance Clear Urine pH 5.0 Ur Specific [place] 1.018 Urine Protein Trace Urine Glucose (UA) Negative Urine Ketones Negative Ur Blood (Man) Non-hemolyzed trace Urine Nitrate Negative Urine Bilirubin Negative Urine Urobilinogen 0.2 Leukocyte Esterase Rfl Trace H Urine RBC 0-2 Urine WBC 0-5 Ur Squamous Epith Cells None seen Urine Bacteria None seen Urine Casts 3-5 07/09/24 07/10/24 07/10/24 18:01 00:54 06:37 WBC 10.8 H RBC 3.57 L Hgb 10.9 L Hct 33.9 L MCV 95.0 D MCH 30.5 MCHC 32.2 RDW 14.1 Plt Count 287 MPV 11.3 H Immature Gran % (Auto) 1.1 H Neut % (Auto) 76.3 H Lymph % (Auto) 13.7 L Edgar % (Auto) 7.1 Eos % (Auto) 1.4 Baso % (Auto) 0.4 Lymph # (Auto) 1.47 Edgar # (Auto) 0.8 H Eos # (Auto) 0.2 Baso # (Auto) 0.0 Abs Immat Gran (auto) 0.12 H Absolute Neuts (auto) 8.2 H Absolute Nucleated RBC 0.000 Nucleated RBC % 0.0 Sodium 144 Potassium 3.3 L Chloride 118 H Carbon Dioxide 17 L Anion Gap 9 BUN 17 Creatinine 0.85 Estim Creat Clear Calc 72 Estimated GFR > 60 Glucose 107 POC Capillary Glucose 93 100 Calcium 8.0 L C-Reactive Protein 8.1 H Triglycerides Urine Color Urine Appearance Urine pH Ur Specific [place] Urine Protein Urine Glucose (UA) Urine Ketones Ur Blood (Man) Urine Nitrate Urine Bilirubin Urine Urobilinogen Leukocyte Esterase Rfl Urine RBC Urine WBC Ur Squamous Epith Cells Urine Bacteria Urine Casts 07/10/24 11:43 WBC RBC Hgb Hct MCV MCH MCHC RDW Plt Count MPV Immature Gran % (Auto) Neut % (Auto) Lymph % (Auto) Edgar % (Auto) Eos % (Auto) Baso % (Auto) Lymph # (Auto) Edgar # (Auto) Eos # (Auto) Baso # (Auto) Abs Immat Gran (auto) Absolute Neuts (auto) Absolute Nucleated RBC Nucleated RBC % Sodium Potassium Chloride Carbon Dioxide Anion Gap BUN Creatinine Estim Creat Clear Calc Estimated GFR Glucose POC Capillary Glucose 113 H Calcium C-Reactive Protein Triglycerides Urine Color Urine Appearance Urine pH Ur Specific [place] Urine Protein Urine Glucose (UA) Urine Ketones Ur Blood (Man) Urine Nitrate Urine Bilirubin Urine Urobilinogen Leukocyte Esterase Rfl Urine RBC Urine WBC Ur Squamous Epith Cells Urine Bacteria Urine Casts Quality VTE Prophylaxis VTE prophylaxis: pharmacologic ordered
--- NOTE | 2024-07-10 12:06 | P.PNGS_ITS ---
Progress Note: A&P Assessment and Plan (1) Small bowel obstruction: Code(s): K56.609 - Unspecified intestinal obstruction, unspecified as to partial versus complete obstruction Status: Acute Assessment and Plan: * Continue clear liquids today. * Increase activity. (2) Protein-calorie malnutrition, severe: Code(s): E43 - Unspecified severe protein-calorie malnutrition Status: Acute Assessment and Plan: * Continue TPN. Monitor electrolytes. (3) Chronic alcohol use: Code(s): F10.90 - Alcohol use, unspecified, uncomplicated Status: Chronic Assessment and Plan: Mental status changes persist. Delirium or encephalopathy. Do not feel there are signs of sepsis. Continue to monitor. Subjective Subjective Date/Time Seen: 07/10/24 12:06 Interval history: Tolerating clear liquids. No nausea or vomiting. No fevers. Exam GI: Inspection: distended and other (Lower midline wound with scant purulence drainage) GI Palp: Yes Soft to palpation, Yes Tenderness to palpation present (GI) (Mild generalized), No Guarding due to palpation present (GI) and No Rebound tenderness present Auscultation: normal bowel sounds Objective Data Vital Signs Vital Signs: Vital Signs - 24 hr 07/09/24 13:10 07/09/24 16:00 07/09/24 16:00 Temperature 97.5 F L 97.6 F Pulse Rate 89 82 83 Respiratory Rate 20 20 Blood Pressure 175/84 H 160/81 H Pulse Oximetry 96 98 Oxygen Delivery 07/09/24 16:53 07/09/24 20:00 07/09/24 20:00 Temperature 98.6 F Pulse Rate 103 H Respiratory Rate 20 Blood Pressure 151/73 H 154/87 H Pulse Oximetry 97 Oxygen Delivery Room Air 07/09/24 20:00 07/10/24 00:00 07/10/24 00:00 Temperature 98.6 F Pulse Rate 107 H 99 98 Respiratory Rate 20 Blood Pressure 159/87 H Pulse Oximetry 96 Oxygen Delivery 07/10/24 04:00 07/10/24 05:15 07/10/24 07:50 Temperature 96.9 F L Pulse Rate 94 97 Respiratory Rate 16 Blood Pressure 185/102 H 153/83 H Pulse Oximetry 98 Oxygen Delivery 07/10/24 08:00 07/10/24 08:00 07/10/24 08:01 Temperature 97.0 F L Pulse Rate 118 H 121 H Respiratory Rate 20 Blood Pressure 159/77 H Pulse Oximetry 99 Oxygen Delivery Room Air 07/10/24 12:00 Temperature 97.7 F Pulse Rate 119 H Respiratory Rate 20 Blood Pressure 163/97 H Pulse Oximetry 97 Oxygen Delivery Intake/Output Intake/Output: Intake & Output 07/07/24 07/08/24 07/09/24 07/10/24 23:59 23:59 23:59 23:59 Intake Total 2354.1 3852.5 5365.0 1240.2 Output Total 2750 3650 2850 1900 Balance -395.9 202.5 2515.0 -659.8 Meds/Results Medications: Active Medications Generic Name Dose Route Start Last Admin Trade Name Freq PRN Reason Stop Dose Admin Dextrose 12.5 gm 07/02/24 13:59 Dextrose 50% 25 Gm/50 Ml Syringe IV PUSH PRN PRN Hypoglycemia Protocol Enoxaparin Sodium 40 mg 06/29/24 09:00 07/10/24 10:14 Enoxaparin 40 Mg/0.4 Ml Syringe SUB-Q 40 mg DAILY VANDANA Administration Fentanyl Citrate 12.5 mcg 07/04/24 16:56 Fentanyl Citrate Inj (*Crx) 100 Mcg/2 Ml Vial IV PUSH Q2H PRN Breakthrough Pain Rated 4-6 or NPO Fentanyl Citrate 25 mcg 07/04/24 16:56 07/09/24 15:06 Fentanyl Citrate Inj (*Crx) 100 Mcg/2 Ml Vial IV PUSH 25 mcg Q2H PRN Administration Breakthrough Pain Rated 7-10 or NPO Glucagon 1 mg 07/02/24 13:59 Glucagon For Inj 1 Mg Vial IM PRN PRN Hypoglycemia Protocol Glucose 15 gm 07/02/24 13:59 Glucose Oral Gel 15 Gm Of Glucse In 37.5 Gm Tube PO PRN PRN Hypoglycemia Protocol Hydralazine HCl 20 mg 07/02/24 10:27 07/10/24 05:28 Hydralazine Hcl 20 Mg/Ml Vial IV PUSH 20 mg Q6H PRN Administration Hypertension Dextrose 1,000 mls @ 50 mls/hr 07/02/24 13:56 Dextrose 10% IV CONT .Q20H PRN if PN is interrupted Dextrose 1,000 mls @ 100 mls/hr 07/02/24 13:59 Dextrose 5% 1,000 Ml IVPB PRN PRN Hypoglycemia Protocol Ibuprofen 800 mg in 200 mls @ 400 mls/hr 07/06/24 18:50 07/09/24 06:18 Caldolor 800 Mg/200 Ml IVPB 400 mls/hr Q6H PRN Administration Breakthrough Pain Rated 1-3 or NPO Multivitamins 1.25 ml/ 1,002.5 mls @ 70 mls/hr 07/06/24 21:00 07/10/24 10:25 Multivitamins 1.25 ml/ Amino IV CONT 70 mls/hr Acids/Electrolytes/Dextrose .[id number] VANDANA Administration Protocol Fat Emulsion Intravenous 250 mls @ 20.833 mls/hr 07/06/24 21:00 07/09/24 21:41 Lipids 20% IVPB 20.83 mls/hr Q24H VANDANA Administration Potassium Chloride 40 meq/ 1,020 mls @ 100 mls/hr 07/08/24 16:20 07/09/24 23:39 Dextrose IV CONT 100 mls/hr .[id number] VANDANA Administration Cefepime HCl 2 gm in 50 mls @ 100 mls/hr 07/09/24 14:00 07/10/24 05:16 Maxipime 2 Gm/Ns 50 Ml IVPB 100 mls/hr Q8H VANDANA Administration Metronidazole 500 mg in 100 mls @ 100 mls/hr 07/09/24 14:00 07/10/24 05:52 Flagyl 500 Mg/Iso Soln 100 Ml IVPB 100 mls/hr Q8H VANDANA Administration Insulin Human Regular 0 units 07/02/24 18:00 07/10/24 07:34 Insulin Human Regular (*Bkc) 100 Units/Ml SUB-Q Not Given Q6HR [facility] Protocol Lorazepam 2 mg 07/07/24 16:01 07/09/24 22:02 Lorazepam Inj (*Crx) 2 Mg/Ml Vial IV PUSH 2 mg Q4H PRN Administration CIWA 8-15 Metoprolol Tartrate 5 mg 07/02/24 08:51 07/07/24 20:13 Metoprolol Tartrate Inj 5 Mg/5 Ml Vial IV PUSH 5 mg Q4H PRN Administration Tachycardia Naloxone HCl 0.1 mg 07/06/24 18:50 Naloxone Hcl 0.4 Mg/Ml Vial IV PUSH Q2M PRN Opiate Reversal Ondansetron HCl 4 mg 06/27/24 08:21 07/07/24 20:13 Ondansetron Inj 4 Mg/2 Ml Vial IV PUSH 4 mg Q4H PRN Administration Nausea Pantoprazole Sodium 40 mg 06/28/24 09:00 07/10/24 10:14 Pantoprazole Sodium Iv 40 Mg Vial IV PUSH 40 mg QAM VANDANA Administration Sodium Bicarbonate 650 mg 07/10/24 17:00 Sodium Bicarbonate Tab 650 Mg Tablet PO BID VANDANA Sodium Chloride 10 ml 07/02/24 22:00 07/10/24 07:35 Central Line Flush IV PUSH 10 ml Q8HR VANDANA Administration Sodium Chloride 10 ml 07/02/24 15:38 07/04/24 14:13 Central Line Flush IV PUSH 10 ml PRN PRN Administration with TPN bag changes Sodium Chloride 20 ml 07/02/24 15:38 Central Line Flush IV PUSH PRN PRN after blood draws Thiamine HCl 100 mg 06/27/24 09:00 07/10/24 10:14 Thiamine Hcl 200 Mg/2 Ml Vial IV PUSH 100 mg DAILY VANDANA Administration Radiology Results: ITS Impressions Chest/Abdomen/Pelvis CTA 06/27/24 06:17 IMPRESSION: CHEST: 1. No pulmonary embolism. No aortic dissection 2. No acute cardiopulmonary pathology. ABDOMEN/PELVIS: 1. Small bowel obstruction with the transition zone in the terminal ileum area. Clinical correlation advised. 2. No evidence of appendicitis, or diverticulitis. Head CT 06/27/24 06:59 IMPRESSION: No acute intracranial findings. Cervical Spine CT 06/27/24 07:58 IMPRESSION: No acute osseous abnormality cervical spine. Multilevel degenerative disc disease. NG Tube Placement 07/02/24 07:18 IMPRESSION: Fluoroscopy used during NG tube placement in the stomach. Small Bowel X-Ray 07/05/24 16:01 IMPRESSION: 1. Persistent ileus versus small bowel obstruction with contrast not having reached the distalmost dilated loops of gas-filled small bowel over the course of 6 hours. Abdomen/Pelvis CT 07/07/24 05:20 Impression: Small amount of pneumoperitoneum, likely postoperative with evidence of recent midline incision stapling since prior exam. Correlate with surgical history. Bowel distention/bowel obstruction is essentially resolved as compared to prior exam. Small bowel evaluation is limited on the current exam due to extensive matting together of bowel loops. Small amount of ascites. Small pleural effusions with bibasilar pulmonary edema/atelectasis versus pneumonia. Correlate clinically. Chest X-Ray 07/08/24 13:34 Impression: 1: Developing patchy bilateral airspace disease, compatible with pneumonia. Venous Doppler Study 07/09/24 00:02 IMPRESSION: Negative right upper extremity venous US. No deep vein thrombosis. Abdomen X-Ray 07/09/24 06:47 Impression: Nonspecific bowel gas pattern with NG tube in place. Upper GI Series 07/09/24 13:13 IMPRESSION: 1. No bowel obstruction or ileus with normal small bowel transit time and normal caliber and mucosal fold pattern to the small bowel. Labs Labs: Laboratory Results - last 24 hr 07/09/24 07/09/24 07/09/24 05:47 12:58 16:08 WBC RBC Hgb Hct MCV MCH MCHC RDW Plt Count MPV Immature Gran % (Auto) Neut % (Auto) Lymph % (Auto) [place] % (Auto) Eos % (Auto) Baso % (Auto) Lymph # (Auto) [place] # (Auto) Eos # (Auto) Baso # (Auto) Abs Immat Gran (auto) Absolute Neuts (auto) Absolute Nucleated RBC Nucleated RBC % Sodium Potassium Chloride Carbon Dioxide Anion Gap BUN Creatinine Estim Creat Clear Calc Estimated GFR Glucose POC Capillary Glucose 99 Calcium C-Reactive Protein Triglycerides 183 H Urine Color Yellow Urine Appearance Clear Urine pH 5.0 Ur Specific [place] 1.018 Urine Protein Trace Urine Glucose (UA) Negative Urine Ketones Negative Ur Blood (Man) Non-hemolyzed trace Urine Nitrate Negative Urine Bilirubin Negative Urine Urobilinogen 0.2 Leukocyte Esterase Rfl Trace H Urine RBC 0-2 Urine WBC 0-5 Ur Squamous Epith Cells None seen Urine Bacteria None seen Urine Casts 3-5 07/09/24 07/10/24 07/10/24 18:01 00:54 06:37 WBC 10.8 H RBC 3.57 L Hgb 10.9 L Hct 33.9 L MCV 95.0 D MCH 30.5 MCHC 32.2 RDW 14.1 Plt Count 287 MPV 11.3 H Immature Gran % (Auto) 1.1 H Neut % (Auto) 76.3 H Lymph % (Auto) 13.7 L [place] % (Auto) 7.1 Eos % (Auto) 1.4 Baso % (Auto) 0.4 Lymph # (Auto) 1.47 [place] # (Auto) 0.8 H Eos # (Auto) 0.2 Baso # (Auto) 0.0 Abs Immat Gran (auto) 0.12 H Absolute Neuts (auto) 8.2 H Absolute Nucleated RBC 0.000 Nucleated RBC % 0.0 Sodium 144 Potassium 3.3 L Chloride 118 H Carbon Dioxide 17 L Anion Gap 9 BUN 17 Creatinine 0.85 Estim Creat Clear Calc 72 Estimated GFR > 60 Glucose 107 POC Capillary Glucose 93 100 Calcium 8.0 L C-Reactive Protein 8.1 H Triglycerides Urine Color Urine Appearance Urine pH Ur Specific [place] Urine Protein Urine Glucose (UA) Urine Ketones Ur Blood (Man) Urine Nitrate Urine Bilirubin Urine Urobilinogen Leukocyte Esterase Rfl Urine RBC Urine WBC Ur Squamous Epith Cells Urine Bacteria Urine Casts 07/10/24 11:43 WBC RBC Hgb Hct MCV MCH MCHC RDW Plt Count MPV Immature Gran % (Auto) Neut % (Auto) Lymph % (Auto) [place] % (Auto) Eos % (Auto) Baso % (Auto) Lymph # (Auto) [place] # (Auto) Eos # (Auto) Baso # (Auto) Abs Immat Gran (auto) Absolute Neuts (auto) Absolute Nucleated RBC Nucleated RBC % Sodium Potassium Chloride Carbon Dioxide Anion Gap BUN Creatinine Estim Creat Clear Calc Estimated GFR Glucose POC Capillary Glucose 113 H Calcium C-Reactive Protein Triglycerides Urine Color Urine Appearance Urine pH Ur Specific [place] Urine Protein Urine Glucose (UA) Urine Ketones Ur Blood (Man) Urine Nitrate Urine Bilirubin Urine Urobilinogen Leukocyte Esterase Rfl Urine RBC Urine WBC Ur Squamous Epith Cells Urine Bacteria Urine Casts
[2024-07-10 13:02] LABS: Alanine Aminotransferase 13 U/L (6-50); Aspartate Amino Transferase 30 U/L (17-59)
[2024-07-10 13:03] LABS: Ammonia < 9 umol/L (9-30)
[2024-07-10] MEDS: POTASSIUM CHLORIDE INJ 40 MEQ in DEXTROSE 5% 1,000 ML 1,000 ML 100 MEQ IV CONT (13:45)
[2024-07-10] MEDS: POTASSIUM CHLORIDE 20 MEQ PACKET (FOR LIQUID) 40 MEQ PO (14:06)
[2024-07-10] MEDS: IBUPROFEN IV 800 MG/200 ML 800 MG/200 ML BAG 400 MG IVPB (16:34)
[2024-07-10] MEDS: SODIUM BICARBONATE TAB 650 MG TABLET PO (16:34)
[2024-07-10 18:04] LABS: Glucose Point of Care 122 mg/dl (65-105)
[2024-07-10] MEDS: METOPROLOL TARTRATE INJ 5 MG/5 ML VIAL IV PUSH (18:39)
[2024-07-10] MEDS: ONDANSETRON INJ 4 MG/2 ML VIAL IV PUSH (21:50)
[2024-07-10] MEDS: FAT EMULSIONS IV 20% 250 ML 20.83 ML IVPB (21:51)
[2024-07-11] VITALS (11 sets, daily range): BP systolic 112–161; BP diastolic 62–86; PULSE 86–136; RESP 14–28; TEMP 36.2–37.2; O2SAT 94–97
[2024-07-11] MEDS: AMINO ACIDS 5%/D15W/E-LYTES/CA 1,000 ML with MULTIVITAMINS-12 INJ VIAL 1 1.25 ML, MULTI... 70 ML IV CONT ×2 (00:31→15:03)
[2024-07-11] MEDS: ONDANSETRON INJ 4 MG/2 ML VIAL IV PUSH (03:40)
[2024-07-11] MEDS: METOPROLOL TARTRATE INJ 5 MG/5 ML VIAL IV PUSH ×2 (03:51→10:35)
[2024-07-11 05:07] LABS: Glucose Point of Care 143 mg/dl (65-105)
[2024-07-11] MEDS: CEFEPIME 2 GM/NS 50 ML 2 GM/50 ML BAG IVPB ×3 (05:44→22:26)
[2024-07-11] MEDS: metroNIDAZOLE 500 MG/ISO 100ML 500 MG/100 ML BAG 100 MG IVPB ×3 (06:19→21:17)
[2024-07-11] MEDS: CENTRAL LINE FLUSH 10 ML IV PUSH ×3 (06:19→22:26)
[2024-07-11] MEDS: POTASSIUM CHLORIDE INJ 40 MEQ in DEXTROSE 5% 1,000 ML 1,000 ML 100 MEQ IV CONT (06:20)
[2024-07-11 08:47] LABS: Basophils Absolute Auto 0.1 K/mm3 (0.0-0.1); Basophils Percent Auto 0.3 % (0.2-1.2); Eosinophils Absolute Auto 0.1 K/mm3 (0-0.3); Eosinophils Percent Auto 0.6 % (0-4.4); Hematocrit 33.2 % (42.0-52.0); Hemoglobin 10.6 g/dL (14.0-18.0); Immature Granulocyte Percent A 1.3 % (0-0.5); Lymphocytes Absolute Auto 1.19 K/mm3 (0.9-3.2); Lymphocytes Percent Auto 7.6 % (18.3-44.2); Mean Corpuscular HGB Conc 31.9 g/dl (32-36); Mean Corpuscular Hemoglobin 30.5 pg (26-34); Mean Corpuscular Volume 95.4 fl (80-100); Mean Platelet Volume 10.7 fl (7.4-10.4); Monocytes Absolute Auto 0.7 K/mm3 (0.1-0.6); Monocytes Percent Auto 4.5 % (2.6-8.5); Neutrophils Absolute Auto 13.5 K/mm3 (1.3-6.7); Neutrophils Percent Auto 85.7 % (45.5-73.1); Platelet Count Result 374 k/mm3 (150-375); Red Blood Count 3.48 M/mm3 (4.6-6.20); White Blood Count 15.7 K/mm3 (4.5-10.0)
[2024-07-11 09:01] LABS: Anion Gap 5 mmol/L (4-12); Blood Urea Nitrogen 17 mg/dL (9-20); CRP 7.3 mg/dL (<1.0); Calcium 7.9 mg/dL (8.4-10.2); Carbon Dioxide 20 mmol/L (22-30); Chloride 114 mmol/L (98-107); Estimated CRCL calculation 87 ml/min; Estimated Glomerular Filt Rate > 60; Glucose 139 mg/dL (65-110); Potassium 3.2 mmol/L (3.4-5.0); Sodium 139 mmol/L (137-145); Triglycerides 208 mg/dL (<150)
[2024-07-11] MEDS: THIAMINE HCL 200 MG/2 ML VIAL 100 MG IV PUSH (09:58)
[2024-07-11] MEDS: ENOXAPARIN 40 MG/0.4 ML SYRINGE SUB-Q (09:58)
[2024-07-11] MEDS: PANTOPRAZOLE SODIUM IV 40 MG VIAL IV PUSH (09:59)
[2024-07-11] MEDS: SODIUM BICARBONATE TAB 650 MG TABLET PO ×2 (09:59→18:01)
[2024-07-11 11:37] LABS: Glucose Point of Care 150 mg/dl (65-105)
--- NOTE | 2024-07-11 11:47 | P.PNIM_ITS ---
Progress Note: A&P Assessment and Plan (1) Small bowel obstruction: Code(s): K56.609 - Unspecified intestinal obstruction, unspecified as to partial versus complete obstruction Status: Acute Assessment and Plan: Patient admitted after complaints of ABD pain with N/V. CT chest abdomen pelvis CTA was performed which showed no PE no aortic dissection. Abdomen pelvis showed small-bowel obstruction with the transition zone in the terminal ileum area. No evidence of appendicitis or diverticulitis. General surgery was consulted and patient was taken for exploratory laparotomy 06/29/2024 for repair serosal tears x2. IV fluids switched to Dextrose 5/water NA up to 149 and BS 68. Patient had pulled out his NG tube which was replaced under fluoroscopy, mild distention noted reporting having flatulence and bowel movement reported overnight, Tolerating TPN . Continue to encourage patient to get up and perform activity ordered PT/OT. reported he appeared more lethargic yesterday afternoon pain medication adjusted by surgery less lethargic today small bowel series showed persistent ileus versus small-bowel obstruction with contrast not having reach the distal most dilated loops . Patient post-op day 7 KUB with A continued postoperative SBO will need to continue NPO and NG tube * Patient going back for exploratory surgery due to ongoing SBO 07/06/2024 * NPO with Ice chips * NG tube to suction continued for decompression * pain control * ambulate as tolerated * Antiemetics * Will advance diet per surgery once bowel function has returned * Incentive spirometer * PT/OT * Continue serial KUB 07/07 * Postop day 1 from lysis of adhesions and resection of jejunal perforation with anastomosis * Continue NG tube to low intermittent suction, 1 L out since surgery yesterday--green bilious drainage * Continue pain control * Continue NPO status * Continue TPN and lipids 07/08 * Post op day 2 * NG tube to LIS bilious * General surgery following * Continue NPO status * Continue TPN and lipids * Continue IV fluids D5W & 40 KCL 07/09 * Water-soluble GI series obtained today and patient. NG tube was discontinued today. Patient was started on clear liquid diet. * TPN continued * General surgery following * Continue IV fluids for now 07/10 * Tolerating some clear liquids today * Continue TPN for now * For to general surgery team for advancement in diet 07/11 * Poor po intake, still on CLD--General surgery holding off on advancing him * Serosanguineous drainage noted on dressing * Continue TPN * Stop IV fluids of D5W 40 of KCL * WBC 15.7 today (2) Community acquired pneumonia: Code(s): J18.9 - Pneumonia, unspecified organism Status: Acute Assessment and Plan: 07/07 * Chest x-ray showing developing patchy bilateral airspace disease compatible with pneumonia * Zosyn changed to cefepime per Infectious Disease pharmacist recommendation * Currently on room air 07/10 * No change to current treatment plan (3) Chronic alcohol use: Code(s): F10.90 - Alcohol use, unspecified, uncomplicated Status: Chronic Assessment and Plan: 07/07 * Currently tachycardic in the 130s with altered mental status and hallucinations * Continue CIWA protocol * Will hold off on Librium * Continue thiamine, folic acid, multivitamin * Last drink was on 06/23 however he drinks whiskey daily 07/08 * HR down to 90's * Continue CIWA protocol * CIWA score has been 18, he remains confused and agitated at times 07/09 * Continue CIWA protocol * CIWA scores near 6, he remains confused and agitated at times 07/10 * Continues to improve * Continue CIWA protocol 07/11 * Heart rate noted to be in the 130s today * Continue CIWA (4) Hypertension: Code(s): I10 - Essential (primary) hypertension Status: Acute Assessment and Plan: patient has been hypertensive systolics running between 180s to 160s. patient does not take any hypertensive medications at home will re-evaluate prior to discharge if patient will need oral antihypertensive medications at discharge after current acute issues are resolved. * I added hydralazine 20 mg IV push as needed for systolics greater than 160 * episodes of tachycardia surgery added metoprolol IV push PRN * BP per unit protocol 07/07 * Continue metoprolol 5 mg IV push q.4 hours for tachycardia * Continue hydralazine as needed for blood pressure control 07/08 * No change (5) ORTEGA (acute kidney injury): Code(s): N17.9 - Acute kidney failure, unspecified Status: Resolved Assessment and Plan: * Acute kidney injury CR 1.98 POA since resolved with IV fluids 07/07 * Resolved (6) Hypernatremia: Code(s): E87.0 - Hyperosmolality and hypernatremia Status: Resolved Assessment and Plan: * Patient now with hypernatremia at 149 discussed with surgery we will switch his IV fluids to dextrose 5 and water follow-up BMP later on today 07/07 * Resolved (7) Hyponatremia: Code(s): E87.1 - Hypo-osmolality and hyponatremia Status: Resolved Assessment and Plan: * Resolved likely secondary to dehydration and ETOH abuse patient was initially 130 POA resolved with IV fluids 4/16 * Resolved (8) Altered mental status: Code(s): R41.82 - Altered mental status, unspecified Status: Acute Assessment and Plan: Patient has had altered mental status ever since coming back from surgery yesterday. He is alert and oriented x1, will follow commands. Patient having hallucinations per nursing team. This could be from alcohol withdrawal verses polypharmacy versus unknown cause * Sodium is normal at 145, creatinine is normal at 1.20, blood sugars have been ranging 111-148, liver function was normal yesterday. * Patient has Eller catheter in place, UA was showing bacteria however urine culture was negative * Blood cultures are negative on preliminary read * Continue neuro checks * Continue CIWA protocol * Patient has not received any pain medications in the past 24 hours 07/08 * Continue CIWA protocol * Alert and oriented x2 * Continue neuro checks 07/09 * Will check UA today * Blood cultures pending and showing no growth to date on preliminary read * Continue neuro checks * Continue CIWA protocol 07/10 * UA negative * Blood cultures showing no growth to date on preliminary read * Currently alert and oriented times 2-3, much improved * Continue CIWA protocol * Ammonia level <9 * Continue neuro checks q.4 hours 07/11 * No change to current treatment plan * Continues to improve Time Spent With Patient Time with patient: 25 - 35 minutes Subjective Date/time seen: 07/11/24 11:47 Interval history: Interval summary: This is a 64-year-old male with a significant past medical history of who presented to the hospital on 06/27/2024 with abdominal pain With associated nausea and vomiting. Workup in the hospital included a chest abdomen and pelvis CTA which was negative for PE and no cardiopulmonary disease, however did show a small bowel obstruction with transition zone in the terminal ileum area. Head CT was negative. Cervical spine CT was negative for any acute osseous abnormality, showed multilevel degenerative disc disease. An NG tube was placed while in the ED and follow-up KUB showed the NG tube in good position. On 06/28/2024 patient had a small bowel x-ray which showed high-grade small-bowel obstruction. initial labs showed a hemoglobin of 18.5, INR 1.1, sodium 130, chloride 90, bicarb 20, anion gap 20, creatinine 1.98, EGFR 34, blood sugars ranging 171-218, lactic acid 2.5> 2.8> 1.2, magnesium 1.8, total bili 1.8, tropo le 0.369> 0.4-2, proBNP 3980, TSH 3.940. UA was obtained which showed turbid urine appearance, greater than 1.045 urine specific gravity, 2+ urine protein, trace ketone, 1+ urine bilirubin, trace leukocytes, 11-20 urine RBC, 11-20 urine WBC, greater than 20 urine cast. Respiratory panel was negative for influenza a and B, RSV, COVID. Echocardiogram showed normal LV systolic function with an estimated EF of greater than 70%, diastolic dysfunction, small pericardial effusion. General surgery was consulted and treated conservatively at [facility] however patient was having high output through the NG tube and patient was sent for a small bowel x-ray on 07/05/2024 which showed persistent ileus versus small-bowel obstruction with contrast not having reach the distal most daily did loops of gas filled small bowel over the course of a 6 hour period of time. He had a repeat CT scan on 07/06/2024 which shown findings compatible with small bowel obstruction with transition point in the mid small bowel, small amount of ascites with mesenteric edema, small right pleural effusion with patchy bibasilar pulmonary consolidation. He was then taken to the OR on 07/06/[address] Shipman 4 lysis of adhesion with resection of the jejunal perforation with anastomosis. Patient was still having high output out of his NG tube postop with heart rate in the 130s and signs of dehydration. Another abdomen pelvis CT was obtained which shown small amount of pneumoperitoneum likely postoperative with evidence of recent midline incision, bowel distention/bowel obstruction is essentially resolved as compared to prior exam, small amount of ascites, small pleural effusions with bibasilar pulmonary edema /atelectasis. He was given 1.5 L bolus on 07/06/2024. He continues with NG tube and General surgery following. Subjective: Patient is alert and oriented x2-3. Labs reviewed. WBC is elevated at 15.7 today. Review of Systems Review of Systems: All systems reviewed & are unremarkable except as noted in HPI and below Exam Narrative: General: In no acute distress Head: atraumatic, encephalopathy and confused today Cardiac: Normal S1 and S2. Normal sinus rhythm 80s to 90s, No murmur, gallops or friction rubs, peripheral pulses intact. Respiratory: Lungs clear to auscultation, no adventitious lung sounds, currently on room air Gastrointestinal: taunt, mildly distended, non-tender, hypoactive bowel sounds. Having BMs : Eller catheter in place draining clear yellow urine Skin: Midline incision covered with dressing Neuro: Alert and oriented x2-3--improving Objective Data Vital Signs Vital Signs: Vital Signs - 24 hr 07/10/24 12:00 07/10/24 12:00 07/10/24 12:00 Temperature 97.7 F Pulse Rate 119 H 113 H Respiratory Rate 20 Blood Pressure 163/97 H 163/97 H Pulse Oximetry 97 Oxygen Delivery Fraction of Inspired Oxygen 07/10/24 16:00 07/10/24 16:00 07/10/24 16:00 Temperature 97.9 F Pulse Rate 126 H 122 H Respiratory Rate 22 H Blood Pressure 138/75 138/75 Pulse Oximetry 95 Oxygen Delivery Fraction of Inspired Oxygen 07/10/24 18:39 07/10/24 20:00 07/10/24 20:00 Temperature 98.8 F Pulse Rate 118 H 103 H Respiratory Rate 18 Blood Pressure 129/70 Pulse Oximetry 96 Oxygen Delivery Room Air Fraction of Inspired Oxygen 21 07/10/24 20:00 07/10/24 21:39 07/11/24 00:00 Temperature Pulse Rate 102 H 103 H 100 Respiratory Rate 20 Blood Pressure Pulse Oximetry 96 Oxygen Delivery Room Air Fraction of Inspired Oxygen 21 07/11/24 03:51 07/11/24 04:00 07/11/24 04:00 Temperature 98.6 F Pulse Rate 108 H 112 H 86 Respiratory Rate 28 H Blood Pressure 161/86 H Pulse Oximetry 97 Oxygen Delivery Fraction of Inspired Oxygen 07/11/24 06:29 07/11/24 08:00 07/11/24 08:25 Temperature 97.2 F L Pulse Rate 130 H Respiratory Rate 18 Blood Pressure 159/81 H 112/65 Pulse Oximetry 95 Oxygen Delivery Room Air Fraction of Inspired Oxygen 07/11/24 08:42 07/11/24 10:35 Temperature Pulse Rate 136 H Respiratory Rate Blood Pressure Pulse Oximetry Oxygen Delivery Room Air Fraction of Inspired Oxygen Intake/Output Intake/Output: Intake & Output 07/08/24 07/09/24 07/10/24 07/11/24 23:59 23:59 23:59 23:59 Intake Total 3852.5 5565.0 4731.2 1387 Output Total 3650 2850 3700 1450 Balance 202.5 2715.0 1031.2 -63 Meds/Results Medications: Active Medications Generic Name Dose Route Start Last Admin Trade Name Freq PRN Reason Stop Dose Admin Alteplase, Recombinant 2 mg 07/11/24 05:49 Alteplase 2 Mg Vial (Cathflo) IV PUSH ONCE PRN Line Occlusion Dextrose 12.5 gm 07/02/24 13:59 Dextrose 50% 25 Gm/50 Ml Syringe IV PUSH PRN PRN Hypoglycemia Protocol Enoxaparin Sodium 40 mg 06/29/24 09:00 07/11/24 09:58 Enoxaparin 40 Mg/0.4 Ml Syringe SUB-Q 40 mg DAILY VANDANA Administration Fentanyl Citrate 12.5 mcg 07/04/24 16:56 Fentanyl Citrate Inj (*Crx) 100 Mcg/2 Ml Vial IV PUSH Q2H PRN Breakthrough Pain Rated 4-6 or NPO Fentanyl Citrate 25 mcg 07/04/24 16:56 07/09/24 15:06 Fentanyl Citrate Inj (*Crx) 100 Mcg/2 Ml Vial IV PUSH 25 mcg Q2H PRN Administration Breakthrough Pain Rated 7-10 or NPO Glucagon 1 mg 07/02/24 13:59 Glucagon For Inj 1 Mg Vial IM PRN PRN Hypoglycemia Protocol Glucose 15 gm 07/02/24 13:59 Glucose Oral Gel 15 Gm Of Glucse In 37.5 Gm Tube PO PRN PRN Hypoglycemia Protocol Hydralazine HCl 20 mg 07/02/24 10:27 07/10/24 14:06 Hydralazine Hcl 20 Mg/Ml Vial IV PUSH 20 mg Q6H PRN Administration Hypertension Dextrose 1,000 mls @ 50 mls/hr 07/02/24 13:56 Dextrose 10% IV CONT .Q20H PRN if PN is interrupted Dextrose 1,000 mls @ 100 mls/hr 07/02/24 13:59 Dextrose 5% 1,000 Ml IVPB PRN PRN Hypoglycemia Protocol Ibuprofen 800 mg in 200 mls @ 400 mls/hr 07/06/24 18:50 07/10/24 16:34 Caldolor 800 Mg/200 Ml IVPB 400 mls/hr Q6H PRN Administration Breakthrough Pain Rated 1-3 or NPO Multivitamins 1.25 ml/ 1,002.5 mls @ 70 mls/hr 07/06/24 21:00 07/11/24 00:31 Multivitamins 1.25 ml/ Amino IV CONT 70 mls/hr Acids/Electrolytes/Dextrose .[id number] VANDANA Administration Protocol Fat Emulsion Intravenous 250 mls @ 20.833 mls/hr 07/06/24 21:00 07/11/24 11:03 Lipids 20% IVPB Infused Q24H VANDANA Infusion Potassium Chloride 40 meq/ 1,020 mls @ 100 mls/hr 07/08/24 16:20 07/11/24 09:52 Dextrose IV CONT Not Given .[id number] VANDANA Cefepime HCl 2 gm in 50 mls @ 100 mls/hr 07/09/24 14:00 07/11/24 06:15 Maxipime 2 Gm/Ns 50 Ml IVPB Infused Q8H AVNDANA Infusion Metronidazole 500 mg in 100 mls @ 100 mls/hr 07/09/24 14:00 07/11/24 07:20 Flagyl 500 Mg/Iso Soln 100 Ml IVPB Infused Q8H VANDANA Infusion Insulin Human Regular 0 units 07/02/24 18:00 07/11/24 09:52 Insulin Human Regular (*Bkc) 100 Units/Ml SUB-Q Not Given Q6HR [facility] Protocol Lorazepam 2 mg 07/07/24 16:01 07/09/24 22:02 Lorazepam Inj (*Crx) 2 Mg/Ml Vial IV PUSH 2 mg Q4H PRN Administration CIWA 8-15 Metoprolol Tartrate 5 mg 07/02/24 08:51 07/11/24 10:35 Metoprolol Tartrate Inj 5 Mg/5 Ml Vial IV PUSH 5 mg Q4H PRN Administration Tachycardia Naloxone HCl 0.1 mg 07/06/24 18:50 Naloxone Hcl 0.4 Mg/Ml Vial IV PUSH Q2M PRN Opiate Reversal Ondansetron HCl 4 mg 06/27/24 08:21 07/11/24 03:40 Ondansetron Inj 4 Mg/2 Ml Vial IV PUSH 4 mg Q4H PRN Administration Nausea Pantoprazole Sodium 40 mg 06/28/24 09:00 07/11/24 09:59 Pantoprazole Sodium Iv 40 Mg Vial IV PUSH 40 mg QAM VANDANA Administration Sodium Bicarbonate 650 mg 07/10/24 17:00 07/11/24 09:59 Sodium Bicarbonate Tab 650 Mg Tablet PO 650 mg BID VANDANA Administration Sodium Chloride 10 ml 07/02/24 22:00 07/11/24 06:19 Central Line Flush IV PUSH 10 ml Q8HR VANDANA Administration Sodium Chloride 10 ml 07/02/24 15:38 07/04/24 14:13 Central Line Flush IV PUSH 10 ml PRN PRN Administration with TPN bag changes Sodium Chloride 20 ml 07/02/24 15:38 Central Line Flush IV PUSH PRN PRN after blood draws Thiamine HCl 100 mg 06/27/24 09:00 07/11/24 09:58 Thiamine Hcl 200 Mg/2 Ml Vial IV PUSH 100 mg DAILY VANDANA Administration Radiology Results: ITS Impressions Chest/Abdomen/Pelvis CTA 06/27/24 06:17 IMPRESSION: CHEST: 1. No pulmonary embolism. No aortic dissection 2. No acute cardiopulmonary pathology. ABDOMEN/PELVIS: 1. Small bowel obstruction with the transition zone in the terminal ileum area. Clinical correlation advised. 2. No evidence of appendicitis, or diverticulitis. Head CT 06/27/24 06:59 IMPRESSION: No acute intracranial findings. Cervical Spine CT 06/27/24 07:58 IMPRESSION: No acute osseous abnormality cervical spine. Multilevel degenerative disc disease. NG Tube Placement 07/02/24 07:18 IMPRESSION: Fluoroscopy used during NG tube placement in the stomach. Small Bowel X-Ray 07/05/24 16:01 IMPRESSION: 1. Persistent ileus versus small bowel obstruction with contrast not having reached the distalmost dilated loops of gas-filled small bowel over the course of 6 hours. Abdomen/Pelvis CT 07/07/24 05:20 Impression: Small amount of pneumoperitoneum, likely postoperative with evidence of recent midline incision stapling since prior exam. Correlate with surgical history. Bowel distention/bowel obstruction is essentially resolved as compared to prior exam. Small bowel evaluation is limited on the current exam due to extensive matting together of bowel loops. Small amount of ascites. Small pleural effusions with bibasilar pulmonary edema/atelectasis versus pneumonia. Correlate clinically. Chest X-Ray 07/08/24 13:34 Impression: 1: Developing patchy bilateral airspace disease, compatible with pneumonia. Venous Doppler Study 07/09/24 00:02 IMPRESSION: Negative right upper extremity venous US. No deep vein thrombosis. Abdomen X-Ray 07/09/24 06:47 Impression: Nonspecific bowel gas pattern with NG tube in place. Upper GI Series 07/09/24 13:13 IMPRESSION: 1. No bowel obstruction or ileus with normal small bowel transit time and normal caliber and mucosal fold pattern to the small bowel. Labs Labs: Laboratory Results - last 24 hr 07/10/24 07/10/24 07/10/24 11:43 12:45 17:59 WBC RBC Hgb Hct MCV MCH MCHC RDW Plt Count MPV Immature Gran % (Auto) Neut % (Auto) Lymph % (Auto) [place] % (Auto) Eos % (Auto) Baso % (Auto) Lymph # (Auto) [place] # (Auto) Eos # (Auto) Baso # (Auto) Abs Immat Gran (auto) Absolute Neuts (auto) Absolute Nucleated RBC Nucleated RBC % Sodium Potassium Chloride Carbon Dioxide Anion Gap BUN Creatinine Estim Creat Clear Calc Estimated GFR Glucose POC Capillary Glucose 113 H 122 H Calcium AST 30 ALT 13 Ammonia < 9 L C-Reactive Protein Triglycerides 07/11/24 07/11/24 07/11/24 00:55 08:42 11:27 WBC 15.7 H RBC 3.48 L Hgb 10.6 L Hct 33.2 L MCV 95.4 MCH 30.5 MCHC 31.9 L RDW 14.0 Plt Count 374 MPV 10.7 H Immature Gran % (Auto) 1.3 H Neut % (Auto) 85.7 H Lymph % (Auto) 7.6 L [place] % (Auto) 4.5 Eos % (Auto) 0.6 Baso % (Auto) 0.3 Lymph # (Auto) 1.19 [place] # (Auto) 0.7 H Eos # (Auto) 0.1 Baso # (Auto) 0.1 Abs Immat Gran (auto) 0.20 H Absolute Neuts (auto) 13.5 H Absolute Nucleated RBC 0.000 Nucleated RBC % 0.0 Sodium 139 Potassium 3.2 L Chloride 114 H Carbon Dioxide 20 L Anion Gap 5 BUN 17 Creatinine 0.70 Estim Creat Clear Calc 87 Estimated GFR > 60 Glucose 139 H POC Capillary Glucose 143 H 150 H Calcium 7.9 L AST ALT Ammonia C-Reactive Protein 7.3 H Triglycerides 208 H Quality VTE Prophylaxis VTE prophylaxis: pharmacologic ordered
--- NOTE | 2024-07-11 12:33 | P.PNGS_ITS ---
Progress Note: A&P Assessment and Plan (1) Small bowel obstruction: Code(s): K56.609 - Unspecified intestinal obstruction, unspecified as to partial versus complete obstruction Status: Acute Assessment and Plan: * Continue clear liquids today. * Increase activity. * Continue daily dressing changes on midline wound. Fascial suture visible, but no signs of fascial dehiscence. (2) Protein-calorie malnutrition, severe: Code(s): E43 - Unspecified severe protein-calorie malnutrition Status: Acute Assessment and Plan: * Continue TPN. Monitor electrolytes. (3) Chronic alcohol use: Code(s): F10.90 - Alcohol use, unspecified, uncomplicated Status: Chronic Assessment and Plan: Mental status changes persist. Delirium or encephalopathy. Do not feel there are signs of sepsis. Continue to monitor. Subjective Subjective Date/Time Seen: 07/11/24 12:33 Interval history: One episode of nausea/vomiting last night. Passing flatus. Otherwise tolerating clear liquids so far. Nurse reports increased drainage from wound. Having to change the dressing multiple times a day. Exam GI: Inspection: distended and other (Lower midline wound with scant purulent drainage but mostly serous.) GI Palp: Yes Soft to palpation, Yes Tenderness to palpation present (GI) (Mild generalized), No Guarding due to palpation present (GI) and No Rebound tenderness present Auscultation: normal bowel sounds Other: Fascial sutures visible in wound bed. Objective Data Vital Signs Vital Signs: Vital Signs - 24 hr 07/10/24 16:00 07/10/24 16:00 07/10/24 16:00 Temperature 97.9 F Pulse Rate 126 H 122 H Respiratory Rate 22 H Blood Pressure 138/75 138/75 Pulse Oximetry 95 Oxygen Delivery Fraction of Inspired Oxygen 07/10/24 18:39 07/10/24 20:00 07/10/24 20:00 Temperature 98.8 F Pulse Rate 118 H 103 H Respiratory Rate 18 Blood Pressure 129/70 Pulse Oximetry 96 Oxygen Delivery Room Air Fraction of Inspired Oxygen 07/10/24 20:00 07/10/24 21:39 07/11/24 00:00 Temperature Pulse Rate 102 H 103 H 100 Respiratory Rate 20 Blood Pressure Pulse Oximetry 96 Oxygen Delivery Room Air Fraction of Inspired Oxygen 07/11/24 03:51 07/11/24 04:00 07/11/24 04:00 Temperature 98.6 F Pulse Rate 108 H 112 H 86 Respiratory Rate 28 H Blood Pressure 161/86 H Pulse Oximetry 97 Oxygen Delivery Fraction of Inspired Oxygen 07/11/24 06:29 07/11/24 08:00 07/11/24 08:25 Temperature 97.2 F L Pulse Rate 130 H Respiratory Rate 18 Blood Pressure 159/81 H 112/65 Pulse Oximetry 95 Oxygen Delivery Room Air Fraction of Inspired Oxygen 07/11/24 08:42 07/11/24 10:35 07/11/24 11:54 Temperature 98.2 F Pulse Rate 136 H 101 H Respiratory Rate 22 H Blood Pressure 130/62 Pulse Oximetry 96 Oxygen Delivery Room Air Fraction of Inspired Oxygen Intake/Output Intake/Output: Intake & Output 07/08/24 07/09/24 07/10/24 07/11/24 23:59 23:59 23:59 23:59 Intake Total 3852.5 5565.0 4731.2 1387 Output Total 3650 2850 3700 1450 Balance 202.5 2715.0 1031.2 -63 Meds/Results Medications: Active Medications Generic Name Dose Route Start Last Admin Trade Name Freq PRN Reason Stop Dose Admin Alteplase, Recombinant 2 mg 07/11/24 05:49 Alteplase 2 Mg Vial (Cathflo) IV PUSH ONCE PRN Line Occlusion Dextrose 12.5 gm 07/02/24 13:59 Dextrose 50% 25 Gm/50 Ml Syringe IV PUSH PRN PRN Hypoglycemia Protocol Enoxaparin Sodium 40 mg 06/29/24 09:00 07/11/24 09:58 Enoxaparin 40 Mg/0.4 Ml Syringe SUB-Q 40 mg DAILY VANDANA Administration Fentanyl Citrate 12.5 mcg 07/04/24 16:56 Fentanyl Citrate Inj (*Crx) 100 Mcg/2 Ml Vial IV PUSH Q2H PRN Breakthrough Pain Rated 4-6 or NPO Fentanyl Citrate 25 mcg 07/04/24 16:56 07/09/24 15:06 Fentanyl Citrate Inj (*Crx) 100 Mcg/2 Ml Vial IV PUSH 25 mcg Q2H PRN Administration Breakthrough Pain Rated 7-10 or NPO Glucagon 1 mg 07/02/24 13:59 Glucagon For Inj 1 Mg Vial IM PRN PRN Hypoglycemia Protocol Glucose 15 gm 07/02/24 13:59 Glucose Oral Gel 15 Gm Of Glucse In 37.5 Gm Tube PO PRN PRN Hypoglycemia Protocol Hydralazine HCl 20 mg 07/02/24 10:27 07/10/24 14:06 Hydralazine Hcl 20 Mg/Ml Vial IV PUSH 20 mg Q6H PRN Administration Hypertension Dextrose 1,000 mls @ 50 mls/hr 07/02/24 13:56 Dextrose 10% IV CONT .Q20H PRN if PN is interrupted Dextrose 1,000 mls @ 100 mls/hr 07/02/24 13:59 Dextrose 5% 1,000 Ml IVPB PRN PRN Hypoglycemia Protocol Ibuprofen 800 mg in 200 mls @ 400 mls/hr 07/06/24 18:50 07/10/24 16:34 Caldolor 800 Mg/200 Ml IVPB 400 mls/hr Q6H PRN Administration Breakthrough Pain Rated 1-3 or NPO Multivitamins 1.25 ml/ 1,002.5 mls @ 70 mls/hr 07/06/24 21:00 07/11/24 00:31 Multivitamins 1.25 ml/ Amino IV CONT 70 mls/hr Acids/Electrolytes/Dextrose .[id number] VANDANA Administration Protocol Fat Emulsion Intravenous 250 mls @ 20.833 mls/hr 07/06/24 21:00 07/11/24 11:03 Lipids 20% IVPB Infused Q24H VANDANA Infusion Potassium Chloride 40 meq/ 1,020 mls @ 100 mls/hr 07/08/24 16:20 07/11/24 09:52 Dextrose IV CONT Not Given .[id number] VANDANA Cefepime HCl 2 gm in 50 mls @ 100 mls/hr 07/09/24 14:00 07/11/24 06:15 Maxipime 2 Gm/Ns 50 Ml IVPB Infused Q8H VANDANA Infusion Metronidazole 500 mg in 100 mls @ 100 mls/hr 07/09/24 14:00 07/11/24 07:20 Flagyl 500 Mg/Iso Soln 100 Ml IVPB Infused Q8H VANDANA Infusion Insulin Human Regular 0 units 07/02/24 18:00 07/11/24 12:22 Insulin Human Regular (*Bkc) 100 Units/Ml SUB-Q Not Given Q6HR VANDANA Protocol Lorazepam 2 mg 07/07/24 16:01 07/09/24 22:02 Lorazepam Inj (*Crx) 2 Mg/Ml Vial IV PUSH 2 mg Q4H PRN Administration CIWA 8-15 Metoprolol Tartrate 5 mg 07/02/24 08:51 07/11/24 10:35 Metoprolol Tartrate Inj 5 Mg/5 Ml Vial IV PUSH 5 mg Q4H PRN Administration Tachycardia Naloxone HCl 0.1 mg 07/06/24 18:50 Naloxone Hcl 0.4 Mg/Ml Vial IV PUSH Q2M PRN Opiate Reversal Ondansetron HCl 4 mg 06/27/24 08:21 07/11/24 03:40 Ondansetron Inj 4 Mg/2 Ml Vial IV PUSH 4 mg Q4H PRN Administration Nausea Pantoprazole Sodium 40 mg 06/28/24 09:00 07/11/24 09:59 Pantoprazole Sodium Iv 40 Mg Vial IV PUSH 40 mg QAM VANDANA Administration Potassium Chloride 40 meq 07/11/24 11:50 Potassium Chloride 20 Meq Packet (For Liquid) PO BID VANDANA Sodium Bicarbonate 650 mg 07/10/24 17:00 07/11/24 09:59 Sodium Bicarbonate Tab 650 Mg Tablet PO 650 mg BID VANDANA Administration Sodium Chloride 10 ml 07/02/24 22:00 07/11/24 06:19 Central Line Flush IV PUSH 10 ml Q8HR VANDANA Administration Sodium Chloride 10 ml 07/02/24 15:38 07/04/24 14:13 Central Line Flush IV PUSH 10 ml PRN PRN Administration with TPN bag changes Sodium Chloride 20 ml 07/02/24 15:38 Central Line Flush IV PUSH PRN PRN after blood draws Thiamine HCl 100 mg 06/27/24 09:00 07/11/24 09:58 Thiamine Hcl 200 Mg/2 Ml Vial IV PUSH 100 mg DAILY VANDANA Administration Radiology Results: ITS Impressions Chest/Abdomen/Pelvis CTA 06/27/24 06:17 IMPRESSION: CHEST: 1. No pulmonary embolism. No aortic dissection 2. No acute cardiopulmonary pathology. ABDOMEN/PELVIS: 1. Small bowel obstruction with the transition zone in the terminal ileum area. Clinical correlation advised. 2. No evidence of appendicitis, or diverticulitis. Head CT 06/27/24 06:59 IMPRESSION: No acute intracranial findings. Cervical Spine CT 06/27/24 07:58 IMPRESSION: No acute osseous abnormality cervical spine. Multilevel degenerative disc disease. NG Tube Placement 07/02/24 07:18 IMPRESSION: Fluoroscopy used during NG tube placement in the stomach. Small Bowel X-Ray 07/05/24 16:01 IMPRESSION: 1. Persistent ileus versus small bowel obstruction with contrast not having reached the distalmost dilated loops of gas-filled small bowel over the course of 6 hours. Abdomen/Pelvis CT 07/07/24 05:20 Impression: Small amount of pneumoperitoneum, likely postoperative with evidence of recent midline incision stapling since prior exam. Correlate with surgical history. Bowel distention/bowel obstruction is essentially resolved as compared to prior exam. Small bowel evaluation is limited on the current exam due to extensive matting together of bowel loops. Small amount of ascites. Small pleural effusions with bibasilar pulmonary edema/atelectasis versus pneumonia. Correlate clinically. Chest X-Ray 07/08/24 13:34 Impression: 1: Developing patchy bilateral airspace disease, compatible with pneumonia. Venous Doppler Study 07/09/24 00:02 IMPRESSION: Negative right upper extremity venous US. No deep vein thrombosis. Abdomen X-Ray 07/09/24 06:47 Impression: Nonspecific bowel gas pattern with NG tube in place. Upper GI Series 07/09/24 13:13 IMPRESSION: 1. No bowel obstruction or ileus with normal small bowel transit time and normal caliber and mucosal fold pattern to the small bowel. Labs Labs: Laboratory Results - last 24 hr 07/10/24 07/10/24 07/11/24 12:45 17:59 00:55 WBC RBC Hgb Hct MCV MCH MCHC RDW Plt Count MPV Immature Gran % (Auto) Neut % (Auto) Lymph % (Auto) [place] % (Auto) Eos % (Auto) Baso % (Auto) Lymph # (Auto) [place] # (Auto) Eos # (Auto) Baso # (Auto) Abs Immat Gran (auto) Absolute Neuts (auto) Absolute Nucleated RBC Nucleated RBC % Sodium Potassium Chloride Carbon Dioxide Anion Gap BUN Creatinine Estim Creat Clear Calc Estimated GFR Glucose POC Capillary Glucose 122 H 143 H Calcium AST 30 ALT 13 Ammonia < 9 L C-Reactive Protein Triglycerides 07/11/24 07/11/24 08:42 11:27 WBC 15.7 H RBC 3.48 L Hgb 10.6 L Hct 33.2 L MCV 95.4 MCH 30.5 MCHC 31.9 L RDW 14.0 Plt Count 374 MPV 10.7 H Immature Gran % (Auto) 1.3 H Neut % (Auto) 85.7 H Lymph % (Auto) 7.6 L [place] % (Auto) 4.5 Eos % (Auto) 0.6 Baso % (Auto) 0.3 Lymph # (Auto) 1.19 [place] # (Auto) 0.7 H Eos # (Auto) 0.1 Baso # (Auto) 0.1 Abs Immat Gran (auto) 0.20 H Absolute Neuts (auto) 13.5 H Absolute Nucleated RBC 0.000 Nucleated RBC % 0.0 Sodium 139 Potassium 3.2 L Chloride 114 H Carbon Dioxide 20 L Anion Gap 5 BUN 17 Creatinine 0.70 Estim Creat Clear Calc 87 Estimated GFR > 60 Glucose 139 H POC Capillary Glucose 150 H Calcium 7.9 L AST ALT Ammonia C-Reactive Protein 7.3 H Triglycerides 208 H
[2024-07-11] MEDS: POTASSIUM CHLORIDE 20 MEQ PACKET (FOR LIQUID) 40 MEQ PO ×2 (14:58→18:05)
[2024-07-11 18:10] LABS: Glucose Point of Care 122 mg/dl (65-105)
[2024-07-11] MEDS: FAT EMULSIONS IV 20% 250 ML 20.83 ML IVPB (21:16)
[2024-07-12] VITALS (7 sets, daily range): BP systolic 128–154; BP diastolic 68–88; PULSE 92–122; RESP 18–22; TEMP 36.5–37.5; O2SAT 94–97
[2024-07-12 00:58] LABS: Glucose Point of Care 122 mg/dl (65-105)
[2024-07-12] MEDS: metroNIDAZOLE 500 MG/ISO 100ML 500 MG/100 ML BAG 100 MG IVPB (04:52)
[2024-07-12 04:54] LABS: Basophils Absolute Auto 0.1 K/mm3 (0.0-0.1); Basophils Percent Auto 0.4 % (0.2-1.2); Eosinophils Absolute Auto 0.2 K/mm3 (0-0.3); Eosinophils Percent Auto 1.3 % (0-4.4); Hematocrit 28.8 % (42.0-52.0); Hemoglobin 9.3 g/dL (14.0-18.0); Immature Granulocyte Absolute 0.27 K/mm3 (0.00-0.031); Immature Granulocyte Percent A 2.3 % (0-0.5); Lymphocytes Absolute Auto 1.93 K/mm3 (0.9-3.2); Lymphocytes Percent Auto 16.3 % (18.3-44.2); Mean Corpuscular HGB Conc 32.3 g/dl (32-36); Mean Corpuscular Hemoglobin 31.1 pg (26-34); Mean Corpuscular Volume 96.3 fl (80-100); Mean Platelet Volume 11.1 fl (7.4-10.4); Monocytes Absolute Auto 0.8 K/mm3 (0.1-0.6); Monocytes Percent Auto 6.4 % (2.6-8.5); Neutrophils Absolute Auto 8.7 K/mm3 (1.3-6.7); Neutrophils Percent Auto 73.3 % (45.5-73.1); Platelet Count Result 320 k/mm3 (150-375); Red Blood Count 2.99 M/mm3 (4.6-6.20); White Blood Count 11.8 K/mm3 (4.5-10.0)
[2024-07-12 05:01] LABS: Glucose Point of Care 83 mg/dl (65-105)
[2024-07-12 05:25] LABS: Transferrin 88 mg/dL (206-381)
[2024-07-12 05:27] LABS: Alanine Aminotransferase 11 U/L (6-50); Albumin Level 2.1 g/dL (3.5-5.1); Alkaline Phosphatase 94 U/L (38-126); Anion Gap 5 mmol/L (4-12); Aspartate Amino Transferase 26 U/L (17-59); Bilirubin,Total 0.5 mg/dL (0.2-1.3); Blood Urea Nitrogen 18 mg/dL (9-20); CRP 4.3 mg/dL (<1.0); Calcium 7.6 mg/dL (8.4-10.2); Carbon Dioxide 22 mmol/L (22-30); Chloride 112 mmol/L (98-107); Estimated CRCL calculation 78 ml/min; Estimated Glomerular Filt Rate > 60; Glucose 82 mg/dL (65-110); Magnesium 2.1 mg/dL (1.6-2.3); Potassium 3.2 mmol/L (3.4-5.0); Sodium 139 mmol/L (137-145)
[2024-07-12] MEDS: CENTRAL LINE FLUSH 10 ML IV PUSH ×3 (06:11→21:18)
[2024-07-12] MEDS: AMINO ACIDS 5%/D15W/E-LYTES/CA 1,000 ML with MULTIVITAMINS-12 INJ VIAL 1 1.25 ML, MULTI... 70 ML IV CONT (06:11)
[2024-07-12] MEDS: CEFEPIME 2 GM/NS 50 ML 2 GM/50 ML BAG IVPB (06:11)
[2024-07-12 06:54] LABS: INR 1.1; Partial Thromboplastin Time 29.3 Seconds (22.3-36.8); Prothrombin Time 14.3 Seconds (11.1-14.7)
[2024-07-12 07:21] LABS: Anisocytosis 1+; Platelet Estimate Adequate (Adequate)
[2024-07-12 07:22] LABS: Schistocytes None Seen
[2024-07-12] MEDS: LIDOCAINE 1% LOCAL INJ 10 ML VIAL INFILTRATE (07:49)
--- NOTE | 2024-07-12 09:00 | PCPTNOTE ---
Spoke with RAZIA Isbell regarding pt activity. OK to ambulate/perform functional mobility greater than EOB if pt confusion is improving/able to follow safety commands. [employer] notified.
--- NOTE | 2024-07-12 09:14 | PCPTNOTE ---
Attempted to see patient for PT, however patient refused due to 8/10 abdominal pain.
[2024-07-12] MEDS: ENOXAPARIN 40 MG/0.4 ML SYRINGE SUB-Q (09:48)
[2024-07-12] MEDS: THIAMINE HCL 200 MG/2 ML VIAL 100 MG IV PUSH (09:51)
[2024-07-12] MEDS: PANTOPRAZOLE SODIUM IV 40 MG VIAL IV PUSH (09:51)
[2024-07-12] MEDS: SODIUM BICARBONATE TAB 650 MG TABLET PO ×2 (09:52→17:48)
[2024-07-12] MEDS: POTASSIUM CHLORIDE 20 MEQ PACKET (FOR LIQUID) 40 MEQ PO (09:54)
[2024-07-12] MEDS: ONDANSETRON INJ 4 MG/2 ML VIAL IV PUSH (10:06)
[2024-07-12] MEDS: IBUPROFEN IV 800 MG/200 ML 800 MG/200 ML BAG 400 MG IVPB ×2 (10:06→20:09)
[2024-07-12 12:04] LABS: Glucose Point of Care 116 mg/dl (65-105)
[2024-07-12] MEDS: MEROPENEM 1 GM/NS 100 ML 1 GM/100 ML BAG IVPB ×2 (12:45→21:15)
--- NOTE | 2024-07-12 13:08 | PCOTNOTE ---
Attempted to see Patient at this time. coffee farmer came in to place a wound vac on Patient, not available for treatment this P.M.
--- NOTE | 2024-07-12 13:13 | PCPTNOTE ---
Attempted to see patient for PT, however wound care nurse working with patient. Patient unable to be seen for PT at this time.
[2024-07-12] MEDS: LINEZOLID 600 MG/300 ML 600 MG/300 ML SOLN 300 MG IVPB ×2 (13:15→20:13)
--- NOTE | 2024-07-12 13:18 | P.PNGS_ITS ---
Progress Note: A&P Assessment and Plan (1) Small bowel obstruction: Code(s): K56.609 - Unspecified intestinal obstruction, unspecified as to partial versus complete obstruction Status: Acute Assessment and Plan: Much more awake, conversant, lucid. Wound drainage worse and wound opened completely. Loose necrotic tissue removed. No suture removed. Tolerated well. Will ask wound nurses to see, possible wound vac. Advance diet to full liquids. (2) Protein-calorie malnutrition, severe: Code(s): E43 - Unspecified severe protein-calorie malnutrition Status: Acute Assessment and Plan: continue TPN until eating well (3) Altered mental status: Code(s): R41.82 - Altered mental status, unspecified Status: Acute Assessment and Plan: much improved today. Oriented x3. More conversant. (4) Chronic alcohol use: Code(s): F10.90 - Alcohol use, unspecified, uncomplicated Status: Chronic Subjective Subjective Date/Time Seen: 07/12/24 07:55 Post Op day: #6 Patient reports: feels better (much more awake, conversant), still having pain, bowel movement (yesterday per patient) and afebrile Review of Systems Review of Systems: ROS unobtainable: Yes unobtainable due to medical condition Exam Const: General: comfortable and awake Orientation/consciousness: oriented to person (Tr), oriented to place ([facility] but not [facility]) and oriented to time (2024) GI: Inspection: incision (more drainage; tracks all way to top of wound) and scaphoid GI Palp: Yes Soft to palpation, Yes Tenderness to palpation present (GI) and Yes Other GI palpation findings present (opened rest wound, debrided sq debris, necrotic) Auscultation: normoactive bowel sounds Objective Data Vital Signs Vital Signs: Vital Signs - 24 hr 07/11/24 16:00 07/11/24 16:00 07/11/24 20:00 Temperature 36.9 C Pulse Rate 110 H 105 H Respiratory Rate 20 Blood Pressure 125/69 Pulse Oximetry 95 Oxygen Delivery Room Air 07/11/24 20:00 07/11/24 21:21 07/12/24 00:00 Temperature 37.2 C 37.5 C Pulse Rate 104 H 105 H 100 Respiratory Rate 14 22 H Blood Pressure 127/64 145/79 H Pulse Oximetry 94 95 Oxygen Delivery 07/12/24 00:00 07/12/24 04:00 07/12/24 04:56 Temperature 37.1 C Pulse Rate 92 103 H 100 Respiratory Rate 20 Blood Pressure 128/68 Pulse Oximetry 94 Oxygen Delivery 07/12/24 08:00 07/12/24 12:00 Temperature 37.1 C 36.5 C Pulse Rate 100 108 H Respiratory Rate 20 18 Blood Pressure 154/83 H 132/87 Pulse Oximetry 95 96 Oxygen Delivery Intake/Output Intake/Output: Intake & Output 07/09/24 07/10/24 07/11/24 07/12/24 23:59 23:59 23:59 23:59 Intake Total 5565.0 4931.2 3479.5 1502.5 Output Total 2850 3700 2200 950 Balance 2715.0 1231.2 1279.5 552.5 Meds/Results Medications: Active Medications Generic Name Dose Route Start Last Admin Trade Name Freq PRN Reason Stop Dose Admin Alteplase, Recombinant 2 mg 07/11/24 05:49 Alteplase 2 Mg Vial (Cathflo) IV PUSH ONCE PRN Line Occlusion Dextrose 12.5 gm 07/02/24 13:59 Dextrose 50% 25 Gm/50 Ml Syringe IV PUSH PRN PRN Hypoglycemia Protocol Enoxaparin Sodium 40 mg 06/29/24 09:00 07/12/24 09:48 Enoxaparin 40 Mg/0.4 Ml Syringe SUB-Q 40 mg DAILY VANDANA Administration Fentanyl Citrate 12.5 mcg 07/04/24 16:56 Fentanyl Citrate Inj (*Crx) 100 Mcg/2 Ml Vial IV PUSH Q2H PRN Breakthrough Pain Rated 4-6 or NPO Fentanyl Citrate 25 mcg 07/04/24 16:56 07/09/24 15:06 Fentanyl Citrate Inj (*Crx) 100 Mcg/2 Ml Vial IV PUSH 25 mcg Q2H PRN Administration Breakthrough Pain Rated 7-10 or NPO Glucagon 1 mg 07/02/24 13:59 Glucagon For Inj 1 Mg Vial IM PRN PRN Hypoglycemia Protocol Glucose 15 gm 07/02/24 13:59 Glucose Oral Gel 15 Gm Of Glucse In 37.5 Gm Tube PO PRN PRN Hypoglycemia Protocol Hydralazine HCl 20 mg 07/02/24 10:27 07/10/24 14:06 Hydralazine Hcl 20 Mg/Ml Vial IV PUSH 20 mg Q6H PRN Administration Hypertension Dextrose 1,000 mls @ 50 mls/hr 07/02/24 13:56 Dextrose 10% IV CONT .Q20H PRN if PN is interrupted Dextrose 1,000 mls @ 100 mls/hr 07/02/24 13:59 Dextrose 5% 1,000 Ml IVPB PRN PRN Hypoglycemia Protocol Ibuprofen 800 mg in 200 mls @ 400 mls/hr 07/06/24 18:50 07/12/24 10:36 Caldolor 800 Mg/200 Ml IVPB Infused Q6H PRN Infusion Breakthrough Pain Rated 1-3 or NPO Multivitamins 1.25 ml/ 1,002.5 mls @ 70 mls/hr 07/06/24 21:00 07/12/24 06:11 Multivitamins 1.25 ml/ Amino IV CONT 70 mls/hr Acids/Electrolytes/Dextrose .[id number] VANDANA Administration Protocol Fat Emulsion Intravenous 250 mls @ 20.833 mls/hr 07/06/24 21:00 07/11/24 21:16 Lipids 20% IVPB 20.83 mls/hr Q24H VANDANA Administration Linezolid 600 mg in 300 mls @ 300 mls/hr 07/12/24 11:05 07/12/24 13:15 Zyvox IVPB 300 mls/hr Q12HR VANDANA Administration Meropenem 1 gm in 100 mls @ 200 mls/hr 07/12/24 12:00 07/12/24 12:45 IVPB 200 mls/hr Q8HR VANDANA Administration Insulin Human Regular 0 units 07/02/24 18:00 07/12/24 12:10 Insulin Human Regular (*Bkc) 100 Units/Ml SUB-Q Not Given Q6HR VANDANA Protocol Lorazepam 2 mg 07/07/24 16:01 07/09/24 22:02 Lorazepam Inj (*Crx) 2 Mg/Ml Vial IV PUSH 2 mg Q4H PRN Administration CIWA 8-15 Metoprolol Tartrate 5 mg 07/02/24 08:51 07/11/24 10:35 Metoprolol Tartrate Inj 5 Mg/5 Ml Vial IV PUSH 5 mg Q4H PRN Administration Tachycardia Naloxone HCl 0.1 mg 07/06/24 18:50 Naloxone Hcl 0.4 Mg/Ml Vial IV PUSH Q2M PRN Opiate Reversal Ondansetron HCl 4 mg 06/27/24 08:21 07/12/24 10:06 Ondansetron Inj 4 Mg/2 Ml Vial IV PUSH 4 mg Q4H PRN Administration Nausea Pantoprazole Sodium 40 mg 06/28/24 09:00 07/12/24 09:51 Pantoprazole Sodium Iv 40 Mg Vial IV PUSH 40 mg QAM VANDANA Administration Potassium Chloride 40 meq 07/11/24 11:50 07/12/24 09:54 Potassium Chloride 20 Meq Packet (For Liquid) PO 40 meq BID VANDANA Administration Sodium Bicarbonate 650 mg 07/10/24 17:00 07/12/24 09:52 Sodium Bicarbonate Tab 650 Mg Tablet PO 650 mg BID VANDANA Administration Sodium Chloride 10 ml 07/02/24 22:00 07/12/24 13:15 Central Line Flush IV PUSH 10 ml Q8HR VANDANA Administration Sodium Chloride 10 ml 07/02/24 15:38 07/04/24 14:13 Central Line Flush IV PUSH 10 ml PRN PRN Administration with TPN bag changes Sodium Chloride 20 ml 07/02/24 15:38 Central Line Flush IV PUSH PRN PRN after blood draws Thiamine HCl 100 mg 06/27/24 09:00 07/12/24 09:51 Thiamine Hcl 200 Mg/2 Ml Vial IV PUSH 100 mg DAILY VANDANA Administration Radiology Results: ITS Impressions Chest/Abdomen/Pelvis CTA 06/27/24 06:17 IMPRESSION: CHEST: 1. No pulmonary embolism. No aortic dissection 2. No acute cardiopulmonary pathology. ABDOMEN/PELVIS: 1. Small bowel obstruction with the transition zone in the terminal ileum area. Clinical correlation advised. 2. No evidence of appendicitis, or diverticulitis. Head CT 06/27/24 06:59 IMPRESSION: No acute intracranial findings. Cervical Spine CT 06/27/24 07:58 IMPRESSION: No acute osseous abnormality cervical spine. Multilevel degenerative disc disease. NG Tube Placement 07/02/24 07:18 IMPRESSION: Fluoroscopy used during NG tube placement in the stomach. Small Bowel X-Ray 07/05/24 16:01 IMPRESSION: 1. Persistent ileus versus small bowel obstruction with contrast not having reached the distalmost dilated loops of gas-filled small bowel over the course of 6 hours. Abdomen/Pelvis CT 07/07/24 05:20 Impression: Small amount of pneumoperitoneum, likely postoperative with evidence of recent midline incision stapling since prior exam. Correlate with surgical history. Bowel distention/bowel obstruction is essentially resolved as compared to prior exam. Small bowel evaluation is limited on the current exam due to extensive matting together of bowel loops. Small amount of ascites. Small pleural effusions with bibasilar pulmonary edema/atelectasis versus pneumonia. Correlate clinically. Chest X-Ray 07/08/24 13:34 Impression: 1: Developing patchy bilateral airspace disease, compatible with pneumonia. Venous Doppler Study 07/09/24 00:02 IMPRESSION: Negative right upper extremity venous US. No deep vein thrombosis. Abdomen X-Ray 07/09/24 06:47 Impression: Nonspecific bowel gas pattern with NG tube in place. Upper GI Series 07/09/24 13:13 IMPRESSION: 1. No bowel obstruction or ileus with normal small bowel transit time and normal caliber and mucosal fold pattern to the small bowel. Labs Labs: Laboratory Results - last 24 hr 07/11/24 07/12/24 07/12/24 18:03 00:50 04:25 WBC RBC Hgb Hct MCV MCH MCHC RDW Plt Count MPV Immature Gran % (Auto) Neut % (Auto) Lymph % (Auto) [place]ach % (Auto) Eos % (Auto) Baso % (Auto) Lymph # (Auto) [place] # (Auto) Eos # (Auto) Baso # (Auto) Abs Immat Gran (auto) Absolute Neuts (auto) Absolute Nucleated RBC Band Neutrophils % Nucleated RBC % Platelet Estimate Anisocytosis Schistocytes PT INR APTT Sodium Potassium Chloride Carbon Dioxide Anion Gap BUN Creatinine Estim Creat Clear Calc Estimated GFR Glucose POC Capillary Glucose 122 H 122 H 83 Calcium Magnesium Transferrin Total Bilirubin AST ALT Alkaline Phosphatase C-Reactive Protein Total Protein Albumin 07/12/24 07/12/24 04:31 11:40 WBC 11.8 H RBC 2.99 L Hgb 9.3 L Hct 28.8 L MCV 96.3 MCH 31.1 MCHC 32.3 RDW 14.0 Plt Count 320 MPV 11.1 H Immature Gran % (Auto) 2.3 H Neut % (Auto) 73.3 H Lymph % (Auto) 16.3 L [place]ach % (Auto) 6.4 Eos % (Auto) 1.3 Baso % (Auto) 0.4 Lymph # (Auto) 1.93 [place]ach # (Auto) 0.8 H Eos # (Auto) 0.2 Baso # (Auto) 0.1 Abs Immat Gran (auto) 0.27 H Absolute Neuts (auto) 8.7 H Absolute Nucleated RBC 0.000 Band Neutrophils % Not Reportable Nucleated RBC % 0.0 Platelet Estimate Adequate Anisocytosis 1+ Schistocytes None seen PT 14.3 INR 1.1 APTT 29.3 Sodium 139 Potassium 3.2 L Chloride 112 H Carbon Dioxide 22 Anion Gap 5 BUN 18 Creatinine 0.78 Estim Creat Clear Calc 78 Estimated GFR > 60 Glucose 82 POC Capillary Glucose 116 H Calcium 7.6 L Magnesium 2.1 Transferrin 88 L Total Bilirubin 0.5 AST 26 ALT 11 Alkaline Phosphatase 94 C-Reactive Protein 4.3 H Total Protein 5.0 L Albumin 2.1 L
--- NOTE | 2024-07-12 14:30 | P.PNIM_ITS ---
Progress Note: A&P Assessment and Plan (1) Small bowel obstruction: Code(s): K56.609 - Unspecified intestinal obstruction, unspecified as to partial versus complete obstruction Status: Acute Assessment and Plan: Patient admitted after complaints of ABD pain with N/V. CT chest abdomen pelvis CTA was performed which showed no PE no aortic dissection. Abdomen pelvis showed small-bowel obstruction with the transition zone in the terminal ileum area. No evidence of appendicitis or diverticulitis. General surgery was consulted and patient was taken for exploratory laparotomy 06/29/2024 for repair serosal tears x2. IV fluids switched to Dextrose 5/water NA up to 149 and BS 68. Patient had pulled out his NG tube which was replaced under fluoroscopy, mild distention noted reporting having flatulence and bowel movement reported overnight, Tolerating TPN . Continue to encourage patient to get up and perform activity ordered PT/OT. reported he appeared more lethargic yesterday afternoon pain medication adjusted by surgery less lethargic today small bowel series showed persistent ileus versus small-bowel obstruction with contrast not having reach the distal most dilated loops . Patient post-op day 7 KUB with A continued postoperative SBO will need to continue NPO and NG tube * Patient going back for exploratory surgery due to ongoing SBO 07/06/2024 * NPO with Ice chips * NG tube to suction continued for decompression * pain control * ambulate as tolerated * Antiemetics * Will advance diet per surgery once bowel function has returned * Incentive spirometer * PT/OT * Continue serial KUB 07/07 * Postop day 1 from lysis of adhesions and resection of jejunal perforation with anastomosis * Continue NG tube to low intermittent suction, 1 L out since surgery yesterday--green bilious drainage * Continue pain control * Continue NPO status * Continue TPN and lipids 07/08 * Post op day 2 * NG tube to LIS bilious * General surgery following * Continue NPO status * Continue TPN and lipids * Continue IV fluids D5W & 40 KCL 07/09 * Water-soluble GI series obtained today and patient. NG tube was discontinued today. Patient was started on clear liquid diet. * TPN continued * General surgery following * Continue IV fluids for now 07/10 * Tolerating some clear liquids today * Continue TPN for now * For to general surgery team for advancement in diet 07/11 * Poor po intake, still on CLD--General surgery holding off on advancing him * Serosanguineous drainage noted on dressing * Continue TPN * Stop IV fluids of D5W 40 of KCL * WBC 15.7 today 07/12 * Discontinue TPN and lipids * General surgery came by and took the rest of his cora out of his midline incision and placed him on a wound VAC * White blood cell count today down to 11.8 * Discussed antibiotic choices with Infectious Disease pharmacy who recommends changing antibiotic cefepime to linezolid and meropenem * Encourage p.o. intake * Supplement with Ensure (2) Community acquired pneumonia: Code(s): J18.9 - Pneumonia, unspecified organism Status: Acute Assessment and Plan: 07/07 * Chest x-ray showing developing patchy bilateral airspace disease compatible with pneumonia * Zosyn changed to cefepime per Infectious Disease pharmacist recommendation * Currently on room air 07/10 * No change to current treatment plan 07/12 * Cefepime changed to meropenem and Zyvox * Currently on room air (3) Chronic alcohol use: Code(s): F10.90 - Alcohol use, unspecified, uncomplicated Status: Chronic Assessment and Plan: 07/07 * Currently tachycardic in the 130s with altered mental status and hallucinations * Continue CIWA protocol * Will hold off on Librium * Continue thiamine, folic acid, multivitamin * Last drink was on 06/23 however he drinks whiskey daily 07/08 * HR down to 90's * Continue CIWA protocol * CIWA score has been 18, he remains confused and agitated at times 07/09 * Continue CIWA protocol * CIWA scores near 6, he remains confused and agitated at times 07/10 * Continues to improve * Continue CIWA protocol 07/11 * Heart rate noted to be in the 130s today * Continue CIWA 07/11 * Denies hallucinations today * Heart rate controlled * He is alert oriented x3 (4) Hypertension: Code(s): I10 - Essential (primary) hypertension Status: Acute Assessment and Plan: patient has been hypertensive systolics running between 180s to 160s. patient does not take any hypertensive medications at home will re-evaluate prior to discharge if patient will need oral antihypertensive medications at discharge after current acute issues are resolved. * I added hydralazine 20 mg IV push as needed for systolics greater than 160 * episodes of tachycardia surgery added metoprolol IV push PRN * BP per unit protocol 07/07 * Continue metoprolol 5 mg IV push q.4 hours for tachycardia * Continue hydralazine as needed for blood pressure control 07/08 * No change (5) ORTEGA (acute kidney injury): Code(s): N17.9 - Acute kidney failure, unspecified Status: Resolved Assessment and Plan: * Acute kidney injury CR 1.98 POA since resolved with IV fluids 07/07 * Resolved (6) Hypernatremia: Code(s): E87.0 - Hyperosmolality and hypernatremia Status: Resolved Assessment and Plan: * Patient now with hypernatremia at 149 discussed with surgery we will switch his IV fluids to dextrose 5 and water follow-up BMP later on today 07/07 * Resolved (7) Hyponatremia: Code(s): E87.1 - Hypo-osmolality and hyponatremia Status: Resolved Assessment and Plan: * Resolved likely secondary to dehydration and ETOH abuse patient was initially 130 POA resolved with IV fluids 07/07 * Resolved (8) Altered mental status: Code(s): R41.82 - Altered mental status, unspecified Status: Acute Assessment and Plan: Patient has had altered mental status ever since coming back from surgery y ester. He is alert and oriented x1, will follow commands. Patient having hallucinations per nursing team. This could be from alcohol withdrawal verses polypharmacy versus unknown cause * Sodium is normal at 145, creatinine is normal at 1.20, blood sugars have been ranging 111-148, liver function was normal yesterday. * Patient has Eller catheter in place, UA was showing bacteria however urine culture was negative * Blood cultures are negative on preliminary read * Continue neuro checks * Continue CIWA protocol * Patient has not received any pain medications in the past 24 hours 07/08 * Continue CIWA protocol * Alert and oriented x2 * Continue neuro checks 07/09 * Will check UA today * Blood cultures pending and showing no growth to date on preliminary read * Continue neuro checks * Continue CIWA protocol 07/10 * UA negative * Blood cultures showing no growth to date on preliminary read * Currently alert and oriented times 2-3, much improved * Continue CIWA protocol * Ammonia level <9 * Continue neuro checks q.4 hours 07/11 * No change to current treatment plan * Continues to improve 07/11 * Alert oriented x3 Time Spent With Patient Time with patient: 25 - 35 minutes Subjective Date/time seen: 07/12/24 14:30 Interval history: Interval summary: This is a 64-year-old male with a significant past medical history of who presented to the hospital on 06/27/2024 with abdominal pain With associated nausea and vomiting. Workup in the hospital included a chest abdomen and pelvis CTA which was negative for PE and no cardiopulmonary disease, however did show a small bowel obstruction with transition zone in the terminal ileum area. Head CT was negative. Cervical spine CT was negative for any acute osseous abnormality, showed multilevel degenerative disc disease. An NG tube was placed while in the ED and follow-up KUB showed the NG tube in good position. On 06/28/2024 patient had a small bowel x-ray which showed high-grade small-bowel obstruction. initial labs showed a hemoglobin of 18.5, INR 1.1, sodium 130, chloride 90, bicarb 20, anion gap 20, creatinine 1.98, EGFR 34, blood sugars ranging 171-218, lactic acid 2.5> 2.8> 1.2, magnesium 1.8, total bili 1.8, troponin 0.369> 0.4-2, proBNP 3980, TSH 3.940. UA was obtained which showed turbid urine appearance, greater than 1.045 urine specific gravity, 2+ urine protein, trace ketone, 1+ urine bilirubin, trace leukocytes, 11-20 urine RBC, 11-20 urine WBC, greater than 20 urine cast. Respiratory panel was negative for influenza a and B, RSV, COVID. Echocardiogram showed normal LV systolic function with an estimated EF of greater than 70%, diastolic dysfunction, small pericardial effusion. General surgery was consulted and treated conservatively at 1st however patient was having high output through the NG tube and patient was sent for a small bowel x-ray on 07/05/2024 which showed persistent ileus versus small-bowel obstruction with contrast not having reach the distal most daily did loops of gas filled small bowel over the course of a 6 hour period of time. He had a repeat CT scan on 07/06/2024 which shown findings compatible with small bowel obstruction with transition point in the mid small bowel, small amount of ascites with mesenteric edema, small right pleural effusion with patchy bibasilar pulmonary consolidation. He was then taken to the OR on 07/06/[address] Shipman 4 lysis of adhesion with resection of the jejunal perforation with anastomosis. Patient was still having high output out of his NG tube postop with heart rate in the 130s and signs of dehydration. Another abdomen pelvis CT was obtained which shown small amount of pneumoperitoneum likely postoperative with evidence of recent midline incision, bowel distention/bowel obstruction is essentially resolved as compared to prior exam, small amount of ascites, small pleural effusions with bibasilar pulmonary edema /atelectasis. He was given 1.5 L bolus on 07/06/2024. He continues with NG tube and General surgery following. Subjective: Patient denies any new complaints today. General surgery came by and took the rest of his cora out today and applied a wound vac to his midline incision. No drainage out as of yet. Labs reviewed. Review of Systems Review of Systems: All systems reviewed & are unremarkable except as noted in HPI and below Exam Narrative: General: In no acute distress Head: atraumatic, encephalopathy and confused today Cardiac: Normal S1 and S2. Normal sinus rhythm 80s to 90s, No murmur, gallops or friction rubs, peripheral pulses intact. Respiratory: Lungs clear to auscultation, no adventitious lung sounds, currently on room air Gastrointestinal: taunt, mildly distended, non-tender, hypoactive bowel sounds. Having BMs : Eller catheter in place draining clear yellow urine Skin: Midline incision with wound vac in place Neuro: Alert and oriented x3 Objective Data Vital Signs Vital Signs: Vital Signs - 24 hr 07/11/24 16:00 07/11/24 16:00 07/11/24 20:00 Temperature 98.5 F Pulse Rate 110 H 105 H Respiratory Rate 20 Blood Pressure 125/69 Pulse Oximetry 95 Oxygen Delivery Room Air 07/11/24 20:00 07/11/24 21:21 07/12/24 00:00 Temperature 98.9 F 99.5 F Pulse Rate 104 H 105 H 100 Respiratory Rate 14 22 H Blood Pressure 127/64 145/79 H Pulse Oximetry 94 95 Oxygen Delivery 07/12/24 00:00 07/12/24 04:00 07/12/24 04:56 Temperature 98.7 F Pulse Rate 92 103 H 100 Respiratory Rate 20 Blood Pressure 128/68 Pulse Oximetry 94 Oxygen Delivery 07/12/24 08:00 07/12/24 08:00 07/12/24 12:00 Temperature 98.8 F 97.7 F Pulse Rate 100 97 108 H Respiratory Rate 20 18 Blood Pressure 154/83 H 132/87 Pulse Oximetry 95 96 Oxygen Delivery 07/12/24 12:00 Temperature Pulse Rate 108 H Respiratory Rate Blood Pressure Pulse Oximetry Oxygen Delivery Intake/Output Intake/Output: Intake & Output 07/09/24 07/10/24 07/11/24 07/12/24 23:59 23:59 23:59 23:59 Intake Total 5565.0 4931.2 3479.5 1902.5 Output Total 2850 3700 2200 950 Balance 2715.0 1231.2 1279.5 952.5 Meds/Results Medications: Active Medications Generic Name Dose Route Start Last Admin Trade Name Freq PRN Reason Stop Dose Admin Alteplase, Recombinant 2 mg 07/11/24 05:49 Alteplase 2 Mg Vial (Cathflo) IV PUSH ONCE PRN Line Occlusion Dextrose 12.5 gm 07/02/24 13:59 Dextrose 50% 25 Gm/50 Ml Syringe IV PUSH PRN PRN Hypoglycemia Protocol Enoxaparin Sodium 40 mg 06/29/24 09:00 07/12/24 09:48 Enoxaparin 40 Mg/0.4 Ml Syringe SUB-Q 40 mg DAILY VANDANA Administration Fentanyl Citrate 12.5 mcg 07/04/24 16:56 Fentanyl Citrate Inj (*Crx) 100 Mcg/2 Ml Vial IV PUSH Q2H PRN Breakthrough Pain Rated 4-6 or NPO Fentanyl Citrate 25 mcg 07/04/24 16:56 07/09/24 15:06 Fentanyl Citrate Inj (*Crx) 100 Mcg/2 Ml Vial IV PUSH 25 mcg Q2H PRN Administration Breakthrough Pain Rated 7-10 or NPO Glucagon 1 mg 07/02/24 13:59 Glucagon For Inj 1 Mg Vial IM PRN PRN Hypoglycemia Protocol Glucose 15 gm 07/02/24 13:59 Glucose Oral Gel 15 Gm Of Glucse In 37.5 Gm Tube PO PRN PRN Hypoglycemia Protocol Hydralazine HCl 20 mg 07/02/24 10:27 07/10/24 14:06 Hydralazine Hcl 20 Mg/Ml Vial IV PUSH 20 mg Q6H PRN Administration Hypertension Dextrose 1,000 mls @ 50 mls/hr 07/02/24 13:56 Dextrose 10% IV CONT .Q20H PRN if PN is interrupted Dextrose 1,000 mls @ 100 mls/hr 07/02/24 13:59 Dextrose 5% 1,000 Ml IVPB PRN PRN Hypoglycemia Protocol Ibuprofen 800 mg in 200 mls @ 400 mls/hr 07/06/24 18:50 07/12/24 10:36 Caldolor 800 Mg/200 Ml IVPB Infused Q6H PRN Infusion Breakthrough Pain Rated 1-3 or NPO Multivitamins 1.25 ml/ 1,002.5 mls @ 70 mls/hr 07/06/24 21:00 07/12/24 06:11 Multivitamins 1.25 ml/ Amino IV CONT 70 mls/hr Acids/Electrolytes/Dextrose .[id number] VANDANA Administration Protocol Fat Emulsion Intravenous 250 mls @ 20.833 mls/hr 07/06/24 21:00 07/11/24 21:16 Lipids 20% IVPB 20.83 mls/hr Q24H VANDANA Administration Linezolid 600 mg in 300 mls @ 300 mls/hr 07/12/24 11:05 07/12/24 14:15 Zyvox IVPB Infused Q12HR VANDANA Infusion Meropenem 1 gm in 100 mls @ 200 mls/hr 07/12/24 12:00 07/12/24 13:15 IVPB Infused Q8HR VANDANA Infusion Insulin Human Regular 0 units 07/02/24 18:00 07/12/24 12:10 Insulin Human Regular (*Bkc) 100 Units/Ml SUB-Q Not Given Q6HR [facility] Protocol Lorazepam 2 mg 07/07/24 16:01 07/09/24 22:02 Lorazepam Inj (*Crx) 2 Mg/Ml Vial IV PUSH 2 mg Q4H PRN Administration CIWA 8-15 Metoprolol Tartrate 5 mg 07/02/24 08:51 07/11/24 10:35 Metoprolol Tartrate Inj 5 Mg/5 Ml Vial IV PUSH 5 mg Q4H PRN Administration Tachycardia Naloxone HCl 0.1 mg 07/06/24 18:50 Naloxone Hcl 0.4 Mg/Ml Vial IV PUSH Q2M PRN Opiate Reversal Ondansetron HCl 4 mg 06/27/24 08:21 07/12/24 10:06 Ondansetron Inj 4 Mg/2 Ml Vial IV PUSH 4 mg Q4H PRN Administration Nausea Pantoprazole Sodium 40 mg 06/28/24 09:00 07/12/24 09:51 Pantoprazole Sodium Iv 40 Mg Vial IV PUSH 40 mg QAM VANDANA Administration Potassium Chloride 40 meq 07/11/24 11:50 07/12/24 09:54 Potassium Chloride 20 Meq Packet (For Liquid) PO 40 meq BID VANDANA Administration Sodium Bicarbonate 650 mg 07/10/24 17:00 07/12/24 09:52 Sodium Bicarbonate Tab 650 Mg Tablet PO 650 mg BID VANDANA Administration Sodium Chloride 10 ml 07/02/24 22:00 07/12/24 13:15 Central Line Flush IV PUSH 10 ml Q8HR VANDANA Administration Sodium Chloride 10 ml 07/02/24 15:38 07/04/24 14:13 Central Line Flush IV PUSH 10 ml PRN PRN Administration with TPN bag changes Sodium Chloride 20 ml 07/02/24 15:38 Central Line Flush IV PUSH PRN PRN after blood draws Thiamine HCl 100 mg 06/27/24 09:00 07/12/24 09:51 Thiamine Hcl 200 Mg/2 Ml Vial IV PUSH 100 mg DAILY VANDANA Administration Radiology Results: ITS Impressions Chest/Abdomen/Pelvis CTA 06/27/24 06:17 IMPRESSION: CHEST: 1. No pulmonary embolism. No aortic dissection 2. No acute cardiopulmonary pathology. ABDOMEN/PELVIS: 1. Small bowel obstruction with the transition zone in the terminal ileum area. Clinical correlation advised. 2. No evidence of appendicitis, or diverticulitis. Head CT 06/27/24 06:59 IMPRESSION: No acute intracranial findings. Cervical Spine CT 06/27/24 07:58 IMPRESSION: No acute osseous abnormality cervical spine. Multilevel degenerative disc disease. NG Tube Placement 07/02/24 07:18 IMPRESSION: Fluoroscopy used during NG tube placement in the stomach. Small Bowel X-Ray 07/05/24 16:01 IMPRESSION: 1. Persistent ileus versus small bowel obstruction with contrast not having reached the distalmost dilated loops of gas-filled small bowel over the course of 6 hours. Abdomen/Pelvis CT 07/07/24 05:20 Impression: Small amount of pneumoperitoneum, likely postoperative with evidence of recent midline incision stapling since prior exam. Correlate with surgical history. Bowel distention/bowel obstruction is essentially resolved as compared to prior exam. Small bowel evaluation is limited on the current exam due to extensive matting together of bowel loops. Small amount of ascites. Small pleural effusions with bibasilar pulmonary edema/atelectasis versus pneumonia. Correlate clinically. Chest X-Ray 07/08/24 13:34 Impression: 1: Developing patchy bilateral airspace disease, compatible with pneumonia. Venous Doppler Study 07/09/24 00:02 IMPRESSION: Negative right upper extremity venous US. No deep vein thrombosis. Abdomen X-Ray 07/09/24 06:47 Impression: Nonspecific bowel gas pattern with NG tube in place. Upper GI Series 07/09/24 13:13 IMPRESSION: 1. No bowel obstruction or ileus with normal small bowel transit time and normal caliber and mucosal fold pattern to the small bowel. Labs Labs: Laboratory Results - last 24 hr 07/11/24 07/12/24 07/12/24 18:03 00:50 04:25 WBC RBC Hgb Hct MCV MCH MCHC RDW Plt Count MPV Immature Gran % (Auto) Neut % (Auto) Lymph % (Auto) [place] % (Auto) Eos % (Auto) Baso % (Auto) Lymph # (Auto) [place] # (Auto) Eos # (Auto) Baso # (Auto) Abs Immat Gran (auto) Absolute Neuts (auto) Absolute Nucleated RBC Band Neutrophils % Nucleated RBC % Platelet Estimate Anisocytosis Schistocytes PT INR APTT Sodium Potassium Chloride Carbon Dioxide Anion Gap BUN Creatinine Estim Creat Clear Calc Estimated GFR Glucose POC Capillary Glucose 122 H 122 H 83 Calcium Magnesium Transferrin Total Bilirubin AST ALT Alkaline Phosphatase C-Reactive Protein Total Protein Albumin 07/12/24 07/12/24 04:31 11:40 WBC 11.8 H RBC 2.99 L Hgb 9.3 L Hct 28.8 L MCV 96.3 MCH 31.1 MCHC 32.3 RDW 14.0 Plt Count 320 MPV 11.1 H Immature Gran % (Auto) 2.3 H Neut % (Auto) 73.3 H Lymph % (Auto) 16.3 L [place] % (Auto) 6.4 Eos % (Auto) 1.3 Baso % (Auto) 0.4 Lymph # (Auto) 1.93 [place] # (Auto) 0.8 H Eos # (Auto) 0.2 Baso # (Auto) 0.1 Abs Immat Gran (auto) 0.27 H Absolute Neuts (auto) 8.7 H Absolute Nucleated RBC 0.000 Band Neutrophils % Not Reportable Nucleated RBC % 0.0 Platelet Estimate Adequate Anisocytosis 1+ Schistocytes None seen PT 14.3 INR 1.1 APTT 29.3 Sodium 139 Potassium 3.2 L Chloride 112 H Carbon Dioxide 22 Anion Gap 5 BUN 18 Creatinine 0.78 Estim Creat Clear Calc 78 Estimated GFR > 60 Glucose 82 POC Capillary Glucose 116 H Calcium 7.6 L Magnesium 2.1 Transferrin 88 L Total Bilirubin 0.5 AST 26 ALT 11 Alkaline Phosphatase 94 C-Reactive Protein 4.3 H Total Protein 5.0 L Albumin 2.1 L Quality VTE Prophylaxis VTE prophylaxis: pharmacologic ordered
[2024-07-13] VITALS: BP 122/79; PULSE 95; PULSE 99; RESP 20; TEMP 36.7; O2SAT 97
[2024-07-13 04:00] VITALS: BP 127/77; PULSE 94; PULSE 95; RESP 20; TEMP 36.6; O2SAT 96
[2024-07-13] MEDS: MEROPENEM 1 GM/NS 100 ML 1 GM/100 ML BAG IVPB (05:40)
[2024-07-13] MEDS: CENTRAL LINE FLUSH 10 ML IV PUSH ×3 (05:41→21:18)
[2024-07-13] MEDS: ALTEPLASE 2 MG VIAL (CATHFLO) IV PUSH ×2 (06:08→06:09)
--- NOTE | 2024-07-13 07:13 | PM.PNGS ---
Progress Note: A&P Assessment and Plan (1) Small bowel obstruction: Code(s): K56.609 - Unspecified intestinal obstruction, unspecified as to partial versus complete obstruction Status: Acute Assessment and Plan: Tells me that after he drinks water, he feels sense of nausea but never throws up. He still does not have a good appetite. No bowel movement on 421. Abdominal exam looks good with active normal bowel sounds. Will get obstructive series. Linezolid was started yesterday, this can cause nausea. Will talk with Infectious Disease pharmacist about returning antibiotics to cefepime and metronidazole. Wound VAC was placed yesterday and it is likely that his elevated white blood cell count was due to the wound infection which is now open and that should relieve the infection. Continue to monitor closely. (2) Protein-calorie malnutrition, severe: Code(s): E43 - Unspecified severe protein-calorie malnutrition Status: Acute Assessment and Plan: Discussed with hospitalist. Patient still not consistently eating adequate amounts. Will get TPN restarted. (3) Altered mental status: Code(s): R41.82 - Altered mental status, unspecified Status: Acute Assessment and Plan: Improved from 421. Starting to form sentences and have conversations. This will be very helpful and his further recovery. (4) Chronic alcohol use: Code(s): F10.90 - Alcohol use, unspecified, uncomplicated Status: Chronic Subjective Subjective Date/Time Seen: 07/13/24 07:13 Post Op day: #7 Patient reports: pain is less, nausea (Very nauseated this morning, no vomiting, does not want to eat anything by mouth.) and afebrile Review of Systems Review of Systems: All systems reviewed & are unremarkable except as noted in HPI and below (HPI) Exam Const: General: cooperative, comfortable, alert and awake Nutritional Appearance: thin Orientation/consciousness: patient oriented x3 GI: Inspection: non-distended and incision (Wound VAC in place, working well) GI Palp: Yes abdominal tenderness and Yes Soft to palpation Auscultation: normoactive bowel sounds Objective Data Vital Signs Vital Signs: Vital Signs - 24 hr 07/12/24 08:00 07/12/24 08:00 07/12/24 12:00 Temperature 37.1 C 36.5 C Pulse Rate 100 97 108 H Respiratory Rate 20 18 Blood Pressure 154/83 H 132/87 Pulse Oximetry 95 96 Oxygen Delivery 07/12/24 12:00 07/12/24 16:00 07/12/24 16:00 Temperature 36.6 C Pulse Rate 108 H 100 100 Respiratory Rate 18 Blood Pressure 134/77 Pulse Oximetry 97 Oxygen Delivery 07/12/24 20:00 07/12/24 20:00 07/12/24 20:00 Temperature 36.9 C Pulse Rate 114 H 122 H Respiratory Rate 20 Blood Pressure 131/88 Pulse Oximetry 97 Oxygen Delivery Room Air 07/13/24 00:00 07/13/24 00:00 07/13/24 04:00 Temperature 36.7 C Pulse Rate 95 99 94 Respiratory Rate 20 Blood Pressure 122/79 Pulse Oximetry 97 Oxygen Delivery 07/13/24 04:00 Temperature 36.6 C Pulse Rate 95 Respiratory Rate 20 Blood Pressure 127/77 Pulse Oximetry 96 Oxygen Delivery Intake/Output Intake/Output: Intake & Output 07/10/24 07/11/24 07/12/24 07/13/24 23:59 23:59 23:59 23:59 Intake Total 4931.2 3479.5 3360.5 300 Output Total 3700 2200 1350 700 Balance 1231.2 1279.5 2010.5 -400 Meds/Results Medications: Active Medications Generic Name Dose Route Start Last Admin Trade Name Freq PRN Reason Stop Dose Admin Alteplase, Recombinant 2 mg 07/11/24 05:49 07/13/24 06:09 Alteplase 2 Mg Vial (Cathflo) IV PUSH 2 mg ONCE PRN Administration Line Occlusion Dextrose 12.5 gm 07/02/24 13:59 Dextrose 50% 25 Gm/50 Ml Syringe IV PUSH PRN PRN Hypoglycemia Protocol Enoxaparin Sodium 40 mg 06/29/24 09:00 07/12/24 09:48 Enoxaparin 40 Mg/0.4 Ml Syringe SUB-Q 40 mg DAILY VANDANA Administration Fentanyl Citrate 12.5 mcg 07/04/24 16:56 Fentanyl Citrate Inj (*Crx) 100 Mcg/2 Ml Vial IV PUSH Q2H PRN Breakthrough Pain Rated 4-6 or NPO Fentanyl Citrate 25 mcg 07/04/24 16:56 07/09/24 15:06 Fentanyl Citrate Inj (*Crx) 100 Mcg/2 Ml Vial IV PUSH 25 mcg Q2H PRN Administration Breakthrough Pain Rated 7-10 or NPO Glucagon 1 mg 07/02/24 13:59 Glucagon For Inj 1 Mg Vial IM PRN PRN Hypoglycemia Protocol Glucose 15 gm 07/02/24 13:59 Glucose Oral Gel 15 Gm Of Glucse In 37.5 Gm Tube PO PRN PRN Hypoglycemia Protocol Hydralazine HCl 20 mg 07/02/24 10:27 07/10/24 14:06 Hydralazine Hcl 20 Mg/Ml Vial IV PUSH 20 mg Q6H PRN Administration Hypertension Dextrose 1,000 mls @ 50 mls/hr 07/02/24 13:56 Dextrose 10% IV CONT .Q20H PRN if PN is interrupted Dextrose 1,000 mls @ 100 mls/hr 07/02/24 13:59 Dextrose 5% 1,000 Ml IVPB PRN PRN Hypoglycemia Protocol Ibuprofen 800 mg in 200 mls @ 400 mls/hr 07/06/24 18:50 07/12/24 20:39 Caldolor 800 Mg/200 Ml IVPB Infused Q6H PRN Infusion Breakthrough Pain Rated 1-3 or NPO Linezolid 600 mg in 300 mls @ 300 mls/hr 07/12/24 11:05 07/12/24 21:13 Zyvox IVPB Infused Q12HR VANDANA Infusion Meropenem 1 gm in 100 mls @ 200 mls/hr 07/12/24 12:00 07/13/24 06:10 IVPB Infused Q8HR VANDANA Infusion Lorazepam 2 mg 07/07/24 16:01 07/09/24 22:02 Lorazepam Inj (*Crx) 2 Mg/Ml Vial IV PUSH 2 mg Q4H PRN Administration CIWA 8-15 Metoprolol Tartrate 5 mg 07/02/24 08:51 07/11/24 10:35 Metoprolol Tartrate Inj 5 Mg/5 Ml Vial IV PUSH 5 mg Q4H PRN Administration Tachycardia Naloxone HCl 0.1 mg 07/06/24 18:50 Naloxone Hcl 0.4 Mg/Ml Vial IV PUSH Q2M PRN Opiate Reversal Ondansetron HCl 4 mg 06/27/24 08:21 07/12/24 10:06 Ondansetron Inj 4 Mg/2 Ml Vial IV PUSH 4 mg Q4H PRN Administration Nausea Pantoprazole Sodium 40 mg 06/28/24 09:00 07/12/24 09:51 Pantoprazole Sodium Iv 40 Mg Vial IV PUSH 40 mg QAM VANDANA Administration Potassium Chloride 40 meq 07/11/24 11:50 07/12/24 14:56 Potassium Chloride 20 Meq Packet (For Liquid) PO Not Given BID VANDANA Sodium Bicarbonate 650 mg 07/10/24 17:00 07/12/24 17:48 Sodium Bicarbonate Tab 650 Mg Tablet PO 650 mg BID VANDANA Administration Sodium Chloride 10 ml 07/02/24 22:00 07/13/24 05:41 Central Line Flush IV PUSH 10 ml Q8HR VANDANA Administration Sodium Chloride 10 ml 07/02/24 15:38 07/04/24 14:13 Central Line Flush IV PUSH 10 ml PRN PRN Administration with TPN bag changes Sodium Chloride 20 ml 07/02/24 15:38 Central Line Flush IV PUSH PRN PRN after blood draws Thiamine HCl 100 mg 06/27/24 09:00 07/12/24 09:51 Thiamine Hcl 200 Mg/2 Ml Vial IV PUSH 100 mg DAILY VANDANA Administration Radiology Results: ITS Impressions Chest/Abdomen/Pelvis CTA 06/27/24 06:17 IMPRESSION: CHEST: 1. No pulmonary embolism. No aortic dissection 2. No acute cardiopulmonary pathology. ABDOMEN/PELVIS: 1. Small bowel obstruction with the transition zone in the terminal ileum area. Clinical correlation advised. 2. No evidence of appendicitis, or diverticulitis. Head CT 06/27/24 06:59 IMPRESSION: No acute intracranial findings. Cervical Spine CT 06/27/24 07:58 IMPRESSION: No acute osseous abnormality cervical spine. Multilevel degenerative disc disease. NG Tube Placement 07/02/24 07:18 IMPRESSION: Fluoroscopy used during NG tube placement in the stomach. Small Bowel X-Ray 07/05/24 16:01 IMPRESSION: 1. Persistent ileus versus small bowel obstruction with contrast not having reached the distalmost dilated loops of gas-filled small bowel over the course of 6 hours. Abdomen/Pelvis CT 07/07/24 05:20 Impression: Small amount of pneumoperitoneum, likely postoperative with evidence of recent midline incision stapling since prior exam. Correlate with surgical history. Bowel distention/bowel obstruction is essentially resolved as compared to prior exam. Small bowel evaluation is limited on the current exam due to extensive matting together of bowel loops. Small amount of ascites. Small pleural effusions with bibasilar pulmonary edema/atelectasis versus pneumonia. Correlate clinically. Chest X-Ray 07/08/24 13:34 Impression: 1: Developing patchy bilateral airspace disease, compatible with pneumonia. Venous Doppler Study 07/09/24 00:02 IMPRESSION: Negative right upper extremity venous US. No deep vein thrombosis. Abdomen X-Ray 07/09/24 06:47 Impression: Nonspecific bowel gas pattern with NG tube in place. Upper GI Series 07/09/24 13:13 IMPRESSION: 1. No bowel obstruction or ileus with normal small bowel transit time and normal caliber and mucosal fold pattern to the small bowel. Labs Labs: Laboratory Results - last 24 hr 07/12/24 07/12/24 04:31 11:40 WBC 11.8 H RBC 2.99 L Hgb 9.3 L Hct 28.8 L MCV 96.3 MCH 31.1 MCHC 32.3 RDW 14.0 Plt Count 320 MPV 11.1 H Immature Gran % (Auto) 2.3 H Neut % (Auto) 73.3 H Lymph % (Auto) 16.3 L [place] % (Auto) 6.4 Eos % (Auto) 1.3 Baso % (Auto) 0.4 Lymph # (Auto) 1.93 [place] # (Auto) 0.8 H Eos # (Auto) 0.2 Baso # (Auto) 0.1 Abs Immat Gran (auto) 0.27 H Absolute Neuts (auto) 8.7 H Absolute Nucleated RBC 0.000 Band Neutrophils % Not Reportable Nucleated RBC % 0.0 Platelet Estimate Adequate Anisocytosis 1+ Schistocytes None seen POC Capillary Glucose 116 H
[2024-07-13 08:00] VITALS: BP 144/82; PULSE 96; PULSE 98; RESP 18; TEMP 36.7; O2SAT 97
[2024-07-13] MEDS: PANTOPRAZOLE SODIUM IV 40 MG VIAL IV PUSH (08:49)
[2024-07-13] MEDS: POTASSIUM CHLORIDE 20 MEQ PACKET (FOR LIQUID) 40 MEQ PO ×2 (08:49→16:32)
[2024-07-13] MEDS: THIAMINE HCL 200 MG/2 ML VIAL 100 MG IV PUSH (08:49)
[2024-07-13] MEDS: ENOXAPARIN 40 MG/0.4 ML SYRINGE SUB-Q (08:49)
[2024-07-13] MEDS: SODIUM BICARBONATE TAB 650 MG TABLET PO ×2 (08:50→16:33)
[2024-07-13] MEDS: CEFEPIME 2 GM/NS 50 ML 2 GM/50 ML BAG IVPB ×2 (08:53→16:32)
[2024-07-13] MEDS: AMINO ACIDS 5%/D15W/E-LYTES/CA 1,000 ML with MULTIVITAMINS-12 INJ VIAL 1 1.25 ML, MULTI... 70 ML IV CONT ×2 (08:53→23:57)
[2024-07-13] MEDS: FAT EMULSIONS IV 20% 250 ML 20.83 ML IVPB (08:54)
[2024-07-13 09:13] LABS: Basophils Absolute Auto 0.1 K/mm3 (0.0-0.1); Basophils Percent Auto 0.8 % (0.2-1.2); Eosinophils Absolute Auto 0.2 K/mm3 (0-0.3); Eosinophils Percent Auto 1.5 % (0-4.4); Hematocrit 30.5 % (42.0-52.0); Hemoglobin 9.6 g/dL (14.0-18.0); Immature Granulocyte Percent A 1.9 % (0-0.5); Lymphocytes Absolute Auto 1.75 K/mm3 (0.9-3.2); Lymphocytes Percent Auto 16.8 % (18.3-44.2); Mean Corpuscular HGB Conc 31.5 g/dl (32-36); Mean Corpuscular Hemoglobin 31.3 pg (26-34); Mean Corpuscular Volume 99.3 fl (80-100); Mean Platelet Volume 11.1 fl (7.4-10.4); Monocytes Absolute Auto 0.8 K/mm3 (0.1-0.6); Monocytes Percent Auto 7.2 % (2.6-8.5); Neutrophils Absolute Auto 7.5 K/mm3 (1.3-6.7); Neutrophils Percent Auto 71.8 % (45.5-73.1); Platelet Count Result 370 k/mm3 (150-375); Red Blood Count 3.07 M/mm3 (4.6-6.20); Red Cell Distribution Width 14.1 % (11.5-14.5); White Blood Count 10.4 K/mm3 (4.5-10.0)
[2024-07-13 09:31] LABS: Alanine Aminotransferase 14 U/L (6-50); Albumin Level 2.4 g/dL (3.5-5.1); Alkaline Phosphatase 93 U/L (38-126); Anion Gap 9 mmol/L (4-12); Aspartate Amino Transferase 28 U/L (17-59); Bilirubin,Total 0.5 mg/dL (0.2-1.3); Blood Urea Nitrogen 18 mg/dL (9-20); Calcium 7.4 mg/dL (8.4-10.2); Carbon Dioxide 19 mmol/L (22-30); Chloride 110 mmol/L (98-107); Estimated CRCL calculation 77 ml/min; Estimated Glomerular Filt Rate > 60; Glucose 78 mg/dL (65-110); Magnesium 2.1 mg/dL (1.6-2.3); Potassium 3.6 mmol/L (3.4-5.0); Sodium 138 mmol/L (137-145)
[2024-07-13 09:32] LABS: Partial Thromboplastin Time 25.5 Seconds (22.3-36.8)
[2024-07-13 09:52] LABS: CRP 4.4 mg/dL (<1.0)
[2024-07-13 10:55] LABS: Transferrin 101 mg/dL (206-381)
--- NOTE | 2024-07-13 11:07 | PCNFU ---
Nutrition Follow-Up Complete: Inadequate energy intake related to small bowel obstruction as evidenced by NPO day 5 Goal:Meet estimated nutrition needs PO intake when medically able -Pt meeting 87% of caloric needs and 109% of protein needs via TPN -No PO intake at this time Pt current nutrition is NPO, TPN - clnimix E 08/05 @ 70ml/hr to provide 1693kcals, 84g protein. Nutrition recommendation: consider advancing PO intake when appropriate Last recorded weight is 84.8 kg. Bowel Motility: +BM 07/09 Labs Reviewed: Hgb:9.3, HCT:28.8, Alb:2.1, K:3.2 Meds Noted: protonix, thiamin, lovenox, KCL Skin: WNL Additional Notes: Pt remains NPO, c/o nausea today, TPN continues to run and provide 87% of estimated needs, 109% of protein needs. Recommend to continue TPN until pt is able to advance to PO diet and is consuming 50% or more and tolerating. Monitoring orders, TPN tolerance, labs, weights, meds, output, plan of care Follow up Friday/Friday
--- NOTE | 2024-07-13 11:49 | P.PNIM_ITS ---
Progress Note: A&P Assessment and Plan (1) Small bowel obstruction: Code(s): K56.609 - Unspecified intestinal obstruction, unspecified as to partial versus complete obstruction Status: Acute Assessment and Plan: 07/13 * Continue TPN and lipids per general surgery recommendation * WBC 10.4 * Spoke with Dr. Shipman and we will switch patient back to Cefepime and Flagyl as he recommends. * continue to encourage po intake, Full liquids * Supplement with Ensure * Obstructive series today shown several intermittently mild dilated loops of small bowel throughout the abdomen and pelvis favorable of postoperative ileus over obstruction. * ??? Reglan. Will discuss with Dr. Shipman (2) Community acquired pneumonia: Code(s): J18.9 - Pneumonia, unspecified organism Status: Acute Assessment and Plan: 07/13 * Changed back to Cefepime and Flagyl per General surgery recommendations (3) Chronic alcohol use: Code(s): F10.90 - Alcohol use, unspecified, uncomplicated Status: Chronic Assessment and Plan: Resolved (4) Hypertension: Code(s): I10 - Essential (primary) hypertension Status: Acute Assessment and Plan: 07/07 * Continue metoprolol 5 mg IV push q.4 hours for tachycardia * Continue hydralazine as needed for blood pressure control 07/08 * No change (5) ORTEGA (acute kidney injury): Code(s): N17.9 - Acute kidney failure, unspecified Status: Resolved Assessment and Plan: * Acute kidney injury CR 1.98 POA since resolved with IV fluids 07/07 * Resolved (6) Hypernatremia: Code(s): E87.0 - Hyperosmolality and hypernatremia Status: Resolved Assessment and Plan: * Patient now with hypernatremia at 149 discussed with surgery we will switch his IV fluids to dextrose 5 and water follow-up BMP later on today 07/07 * Resolved (7) Hyponatremia: Code(s): E87.1 - Hypo-osmolality and hyponatremia Status: Resolved Assessment and Plan: * Resolved likely secondary to dehydration and ETOH abuse patient was initially 130 POA resolved with IV fluids 07/07 * Resolved (8) Altered mental status: Code(s): R41.82 - Altered mental status, unspecified Status: Acute Assessment and Plan: 07/13 * Resolving * Alert and oriented x3 * Was on [facility] protocol. Time Spent With Patient Time with patient: 25 - 35 minutes Subjective Date/time seen: 07/13/24 11:49 Interval history: Interval summary: This is a 64-year-old male with a significant past medical history of who presented to the hospital on 06/27/2024 with abdominal pain With associated nausea and vomiting. Workup in the hospital included a chest abdomen and pelvis CTA which was negative for PE and no cardiopulmonary disease, however did show a small bowel obstruction with transition zone in the terminal ileum area. Head CT was negative. Cervical spine CT was negative for any acute osseous abnormality, showed multilevel degenerative disc disease. An NG tube was placed while in the ED and follow-up KUB showed the NG tube in good position. On 09/2024 patient had a small bowel x-ray which showed high-grade small-bowel obstruction. initial labs showed a hemoglobin of 18.5, INR 1.1, sodium 130, chloride 90, bicarb 20, anion gap 20, creatinine 1.98, EGFR 34, blood sugars ranging 171-218, lactic acid 2.5> 2.8> 1.2, magnesium 1.8, total bili 1.8, troponin 0.369> 0.4-2, proBNP 3980, TSH 3.940. UA was obtained which showed turbid urine appearance, greater than 1.045 urine specific gravity, 2+ urine protein, trace ketone, 1+ urine bilirubin, trace leukocytes, 11-20 urine RBC, 11-20 urine WBC, greater than 20 urine cast. Respiratory panel was negative for influenza a and B, RSV, COVID. Echocardiogram showed normal LV systolic function with an estimated EF of greater than 70%, diastolic dysfunction, small pericardial effusion. General surgery was consulted and treated conservatively at 1st however patient was having high output through the NG tube and patient was sent for a small bowel x-ray on 07/05/2024 which showed persistent ileus versus small-bowel obstruction with contrast not having reach the distal most daily did loops of gas filled small bowel over the course of a 6 hour period of time. He had a repeat CT scan on 07/06/2024 which shown findings compatible with small bowel obstruction with transition point in the mid small bowel, small amount of ascites with mesenteric edema, small right pleural effusion with pat cee bibasilar pulmonary consolidation. He was then taken to the OR on 07/06/[address] Shipman 4 lysis of adhesion with resection of the jejunal perforation with anastomosis. Patient was still having high output out of his NG tube postop with heart rate in the 130s and signs of dehydration. Another abdomen pelvis CT was obtained which shown small amount of pneumoperitoneum likely postoperative with evidence of recent midline incision, bowel distention/bowel obstruction is essentially resolved as compared to prior exam, small amount of ascites, small pleural effusions with bibasilar pulmonary edema /atelectasis. Subjective: Patient reports nausea today. Obstructive series showing ileus. PT and OT are able to work with him and he is now up in a chair today. Wound vac in place putting out serosanguineous drainage. Labs reviewed. Review of Systems Review of Systems: All systems reviewed & are unremarkable except as noted in HPI and below Exam Narrative: General: In no acute distress Head: atraumatic, encephalopathy and confused today Cardiac: Normal S1 and S2. Normal sinus rhythm 80s to 90s, No murmur, gallops or friction rubs, peripheral pulses intact. Respiratory: Lungs clear to auscultation, no adventitious lung sounds, currently on room air Gastrointestinal: taunt, mildly distended, non-tender, hypoactive bowel sounds. Having BMs : Eller catheter in place draining clear yellow urine Skin: Midline incision with wound vac in place SS drainage noted in container Neuro: Alert and oriented x3 Objective Data Vital Signs Vital Signs: Vital Signs - 24 hr 07/12/24 12:00 07/12/24 12:00 07/12/24 16:00 Temperature 97.7 F Pulse Rate 108 H 108 H 100 Respiratory Rate 18 Blood Pressure 132/87 Pulse Oximetry 96 Oxygen Delivery 07/12/24 16:00 07/12/24 20:00 07/12/24 20:00 Temperature 97.9 F Pulse Rate 100 114 H Respiratory Rate 18 Blood Pressure 134/77 Pulse Oximetry 97 Oxygen Delivery Room Air 07/12/24 20:00 07/13/24 00:00 07/13/24 00:00 Temperature 98.4 F 98.1 F Pulse Rate 122 H 95 99 Respiratory Rate 20 20 Blood Pressure 131/88 122/79 Pulse Oximetry 97 97 Oxygen Delivery 07/13/24 04:00 07/13/24 04:00 07/13/24 08:00 Temperature 97.8 F 98.1 F Pulse Rate 94 95 98 Respiratory Rate 20 18 Blood Pressure 127/77 144/82 H Pulse Oximetry 96 97 Oxygen Delivery Intake/Output Intake/Output: Intake & Output 07/10/24 07/11/24 07/12/24 07/13/24 23:59 23:59 23:59 23:59 Intake Total 4931.2 3479.5 3360.5 300 Output Total 3700 2200 1350 700 Balance 1231.2 1279.5 2010.5 -400 Meds/Results Medications: Active Medications Generic Name Dose Route Start Last Admin Trade Name Freq PRN Reason Stop Dose Admin Alteplase, Recombinant 2 mg 07/11/24 05:49 07/13/24 06:09 Alteplase 2 Mg Vial (Cathflo) IV PUSH 2 mg ONCE PRN Administration Line Occlusion Dextrose 12.5 gm 07/02/24 13:59 Dextrose 50% 25 Gm/50 Ml Syringe IV PUSH PRN PRN Hypoglycemia Protocol Enoxaparin Sodium 40 mg 06/29/24 09:00 07/13/24 08:49 Enoxaparin 40 Mg/0.4 Ml Syringe SUB-Q 40 mg DAILY VANDANA Administration Fentanyl Citrate 12.5 mcg 07/04/24 16:56 Fentanyl Citrate Inj (*Crx) 100 Mcg/2 Ml Vial IV PUSH Q2H PRN Breakthrough Pain Rated 4-6 or NPO Fentanyl Citrate 25 mcg 07/04/24 16:56 07/09/24 15:06 Fentanyl Citrate Inj (*Crx) 100 Mcg/2 Ml Vial IV PUSH 25 mcg Q2H PRN Administration Breakthrough Pain Rated 7-10 or NPO Glucagon 1 mg 07/02/24 13:59 Glucagon For Inj 1 Mg Vial IM PRN PRN Hypoglycemia Protocol Glucose 15 gm 07/02/24 13:59 Glucose Oral Gel 15 Gm Of Glucse In 37.5 Gm Tube PO PRN PRN Hypoglycemia Protocol Hydralazine HCl 20 mg 07/02/24 10:27 07/10/24 14:06 Hydralazine Hcl 20 Mg/Ml Vial IV PUSH 20 mg Q6H PRN Administration Hypertension Dextrose 1,000 mls @ 100 mls/hr 07/02/24 13:59 Dextrose 5% 1,000 Ml IVPB PRN PRN Hypoglycemia Protocol Ibuprofen 800 mg in 200 mls @ 400 mls/hr 07/06/24 18:50 07/12/24 20:39 Caldolor 800 Mg/200 Ml IVPB Infused Q6H PRN Infusion Breakthrough Pain Rated 1-3 or NPO Dextrose 1,000 mls @ 50 mls/hr 07/13/24 08:07 Dextrose 10% IV CONT .Q20H PRN if PN is interrupted Multivitamins 1.25 ml/ 1,002.5 mls @ 70 mls/hr 07/13/24 09:30 07/13/24 08:53 Multivitamins 1.25 ml/ Amino IV CONT 70 mls/hr Acids/Electrolytes/Dextrose .[id number] VANDANA Administration Protocol Fat Emulsion Intravenous 250 mls @ 20.833 mls/hr 07/13/24 09:30 07/13/24 08:54 Lipids 20% IVPB 20.83 mls/hr Q24H VANDANA Administration Cefepime HCl 2 gm in 50 mls @ 100 mls/hr 07/13/24 09:00 07/13/24 08:53 Maxipime 2 Gm/Ns 50 Ml IVPB 07/16/24 23:59 100 mls/hr Q8H VANDANA Administration Metronidazole 500 mg in 100 mls @ 100 mls/hr 07/13/24 14:00 Flagyl 500 Mg/Iso Soln 100 Ml IVPB 07/16/24 23:59 Q8HR VANDANA Lorazepam 2 mg 07/07/24 16:01 07/09/24 22:02 Lorazepam Inj (*Crx) 2 Mg/Ml Vial IV PUSH 2 mg Q4H PRN Administration CIWA 8-15 Metoprolol Tartrate 5 mg 07/02/24 08:51 07/11/24 10:35 Metoprolol Tartrate Inj 5 Mg/5 Ml Vial IV PUSH 5 mg Q4H PRN Administration Tachycardia Naloxone HCl 0.1 mg 07/06/24 18:50 Naloxone Hcl 0.4 Mg/Ml Vial IV PUSH Q2M PRN Opiate Reversal Ondansetron HCl 4 mg 06/27/24 08:21 07/12/24 10:06 Ondansetron Inj 4 Mg/2 Ml Vial IV PUSH 4 mg Q4H PRN Administration Nausea Pantoprazole Sodium 40 mg 06/28/24 09:00 07/13/24 08:49 Pantoprazole Sodium Iv 40 Mg Vial IV PUSH 40 mg QAM VANDANA Administration Potassium Chloride 40 meq 07/11/24 11:50 07/13/24 08:49 Potassium Chloride 20 Meq Packet (For Liquid) PO 40 meq BID VANDANA Administration Sodium Bicarbonate 650 mg 07/10/24 17:00 07/13/24 08:50 Sodium Bicarbonate Tab 650 Mg Tablet PO 650 mg BID VANDANA Administration Sodium Chloride 10 ml 07/02/24 22:00 07/13/24 05:41 Central Line Flush IV PUSH 10 ml Q8HR VANDANA Administration Sodium Chloride 10 ml 07/02/24 15:38 07/04/24 14:13 Central Line Flush IV PUSH 10 ml PRN PRN Administration with TPN bag changes Sodium Chloride 20 ml 07/02/24 15:38 Central Line Flush IV PUSH PRN PRN after blood draws Thiamine HCl 100 mg 06/27/24 09:00 07/13/24 08:49 Thiamine Hcl 200 Mg/2 Ml Vial IV PUSH 100 mg DAILY VANDANA Administration Radiology Results: ITS Impressions Chest/Abdomen/Pelvis CTA 06/27/24 06:17 IMPRESSION: CHEST: 1. No pulmonary embolism. No aortic dissection 2. No acute cardiopulmonary pathology. ABDOMEN/PELVIS: 1. Small bowel obstruction with the transition zone in the terminal ileum area. Clinical correlation advised. 2. No evidence of appendicitis, or diverticulitis. Head CT 06/27/24 06:59 IMPRESSION: No acute intracranial findings. Cervical Spine CT 06/27/24 07:58 IMPRESSION: No acute osseous abnormality cervical spine. Multilevel degenerative disc disease. NG Tube Placement 07/02/24 07:18 IMPRESSION: Fluoroscopy used during NG tube placement in the stomach. Small Bowel X-Ray 07/05/24 16:01 IMPRESSION: 1. Persistent ileus versus small bowel obstruction with contrast not having reached the distalmost dilated loops of gas-filled small bowel over the course of 6 hours. Abdomen/Pelvis CT 07/07/24 05:20 Impression: Small amount of pneumoperitoneum, likely postoperative with evidence of recent midline incision stapling since prior exam. Correlate with surgical history. Bowel distention/bowel obstruction is essentially resolved as compared to prior exam. Small bowel evaluation is limited on the current exam due to extensive matting together of bowel loops. Small amount of ascites. Small pleural effusions with bibasilar pulmonary edema/atelectasis versus pneumonia. Correlate clinically. Chest X-Ray 07/08/24 13:34 Impression: 1: Developing patchy bilateral airspace disease, compatible with pneumonia. Venous Doppler Study 07/09/24 00:02 IMPRESSION: Negative right upper extremity venous US. No deep vein thrombosis. Upper GI Series 07/09/24 13:13 IMPRESSION: 1. No bowel obstruction or ileus with normal small bowel transit time and normal caliber and mucosal fold pattern to the small bowel. Abdomen X-Ray 07/13/24 10:14 IMPRESSION: 1. Several intermittently mildly dilated loops of small bowel throughout the abdomen and pelvis and favor postoperative ileus over obstruction. Labs Labs: Laboratory Results - last 24 hr 07/12/24 07/13/24 11:40 09:06 WBC 10.4 H RBC 3.07 L Hgb 9.6 L Hct 30.5 L MCV 99.3 MCH 31.3 MCHC 31.5 L RDW 14.1 Plt Count 370 MPV 11.1 H Immature Gran % (Auto) 1.9 H Neut % (Auto) 71.8 Lymph % (Auto) 16.8 L [place] % (Auto) 7.2 Eos % (Auto) 1.5 Baso % (Auto) 0.8 Lymph # (Auto) 1.75 [place] # (Auto) 0.8 H Eos # (Auto) 0.2 Baso # (Auto) 0.1 Abs Immat Gran (auto) 0.20 H Absolute Neuts (auto) 7.5 H Absolute Nucleated RBC 0.000 Nucleated RBC % 0.0 APTT 25.5 Sodium 138 Potassium 3.6 Chloride 110 H Carbon Dioxide 19 L Anion Gap 9 BUN 18 Creatinine 0.79 Estim Creat Clear Calc 77 Estimated GFR > 60 Glucose 78 POC Capillary Glucose 116 H Calcium 7.4 L Magnesium 2.1 Transferrin 101 L Total Bilirubin 0.5 AST 28 ALT 14 Alkaline Phosphatase 93 C-Reactive Protein 4.4 H Total Protein 6.0 L Albumin 2.4 L Quality VTE Prophylaxis VTE prophylaxis: pharmacologic ordered
[2024-07-13 12:00] VITALS: BP 132/76; PULSE 96; RESP 18; TEMP 36.6; O2SAT 97
[2024-07-13 12:10] LABS: Glucose Point of Care 89 mg/dl (65-105)
[2024-07-13 13:49] LABS: Triglycerides 198 mg/dL (<150)
[2024-07-13] MEDS: metroNIDAZOLE 500 MG/ISO 100ML 500 MG/100 ML BAG 100 MG IVPB ×2 (14:32→21:17)
[2024-07-13 16:00] VITALS: BP 146/56; PULSE 86; RESP 18; TEMP 36.1; O2SAT 98
[2024-07-13 18:02] LABS: Glucose Point of Care 117 mg/dl (65-105)
[2024-07-13 20:00] VITALS: BP 161/76; PULSE 93; PULSE 94; RESP 18; TEMP 37; O2SAT 94
[2024-07-13] MEDS: IBUPROFEN IV 800 MG/200 ML 800 MG/200 ML BAG 400 MG IVPB (22:23)
[2024-07-14] VITALS: BP 147/74; PULSE 89; PULSE 95; RESP 18; TEMP 36.4; O2SAT 94
[2024-07-14] MEDS: CEFEPIME 2 GM/NS 50 ML 2 GM/50 ML BAG IVPB ×3 (00:44→17:36)
[2024-07-14 00:52] LABS: Glucose Point of Care 124 mg/dl (65-105)
[2024-07-14 04:00] VITALS: BP 163/84; PULSE 87; PULSE 89; RESP 18; TEMP 36.4; O2SAT 97
[2024-07-14] MEDS: metroNIDAZOLE 500 MG/ISO 100ML 500 MG/100 ML BAG 100 MG IVPB ×3 (05:13→21:57)
[2024-07-14] MEDS: CENTRAL LINE FLUSH 10 ML IV PUSH ×3 (05:14→21:57)
[2024-07-14] MEDS: hydrALAZINE HCL 20 MG/ML VIAL IV PUSH (05:17)
[2024-07-14 06:13] LABS: Glucose Point of Care 115 mg/dl (65-105)
[2024-07-14 06:45] LABS: Basophils Absolute Auto 0.1 K/mm3 (0.0-0.1); Basophils Percent Auto 0.6 % (0.2-1.2); Eosinophils Absolute Auto 0.1 K/mm3 (0-0.3); Eosinophils Percent Auto 1.2 % (0-4.4); Hematocrit 30.8 % (42.0-52.0); Hemoglobin 9.8 g/dL (14.0-18.0); Immature Granulocyte Absolute 0.18 K/mm3 (0.00-0.031); Immature Granulocyte Percent A 1.9 % (0-0.5); Lymphocytes Absolute Auto 1.83 K/mm3 (0.9-3.2); Lymphocytes Percent Auto 19.4 % (18.3-44.2); Mean Corpuscular HGB Conc 31.8 g/dl (32-36); Mean Corpuscular Hemoglobin 30.6 pg (26-34); Mean Corpuscular Volume 96.3 fl (80-100); Mean Platelet Volume 10.4 fl (7.4-10.4); Monocytes Absolute Auto 0.7 K/mm3 (0.1-0.6); Monocytes Percent Auto 7.8 % (2.6-8.5); Neutrophils Absolute Auto 6.5 K/mm3 (1.3-6.7); Neutrophils Percent Auto 69.1 % (45.5-73.1); Platelet Count Result 428 k/mm3 (150-375); Red Cell Distribution Width 13.9 % (11.5-14.5); White Blood Count 9.5 K/mm3 (4.5-10.0)
[2024-07-14 06:55] LABS: Anion Gap 8 mmol/L (4-12); Blood Urea Nitrogen 18 mg/dL (9-20); Calcium 7.6 mg/dL (8.4-10.2); Carbon Dioxide 21 mmol/L (22-30); Chloride 106 mmol/L (98-107); Estimated CRCL calculation 83 ml/min; Estimated Glomerular Filt Rate > 60; Glucose 102 mg/dL (65-110); Phosphorus 3.1 mg/dL (2.5-4.5); Potassium 3.4 mmol/L (3.4-5.0); Sodium 135 mmol/L (137-145); Triglycerides 188 mg/dL (<150)
--- NOTE | 2024-07-14 07:24 | PM.PNGS ---
Progress Note: A&P Assessment and Plan (1) Small bowel obstruction: Code(s): K56.609 - Unspecified intestinal obstruction, unspecified as to partial versus complete obstruction Status: Acute Assessment and Plan: Only 790 cc p.o.. Patient does think that he may like having a soft diet. Will go ahead and advance. Repeat plain film of the abdomen this morning. Review wound with wound nurses later today. (2) Protein-calorie malnutrition, severe: Code(s): E43 - Unspecified severe protein-calorie malnutrition Status: Acute Assessment and Plan: Continue TPN for now. (3) Altered mental status: Code(s): R41.82 - Altered mental status, unspecified Status: Acute Assessment and Plan: Continues to improve. (4) Chronic alcohol use: Code(s): F10.90 - Alcohol use, unspecified, uncomplicated Status: Chronic Subjective Subjective Date/Time Seen: 07/14/24 07:24 Post Op day: #8 Patient reports: no new complaints, feels better, pain is less, nausea (Never has emesis but feels nauseated especially after drinking water) and afebrile Exam Const: General: comfortable, no acute distress, alert and awake Nutritional Appearance: thin Orientation/consciousness: patient oriented x3 GI: Inspection: non-distended, incision (Wound VAC in place, working well. Will check wound later today) and scaphoid GI Palp: Yes Soft to palpation, Yes Tenderness to palpation present (GI) (Incisional only), No Guarding due to palpation present (GI) and No Rebound tenderness present Auscultation: normal bowel sounds Neuro: General: patient oriented x3, no focal motor deficits and CN's II-XI intact bilaterally Speech: normal speech Extrem: General: no calf tenderness and no edema Psych: Speech and movement: Clear speech present Affect: Blunted affect present Attitude: cooperative Insight: Fair insight present (Psych) Judgement: Fair judgement present (Psych) Objective Data Vital Signs Vital Signs: Vital Signs - 24 hr 07/13/24 08:00 07/13/24 08:00 07/13/24 08:00 Temperature 36.7 C Pulse Rate 98 96 96 Respiratory Rate 18 18 Blood Pressure 144/82 H Pulse Oximetry 97 97 Oxygen Delivery Room Air Fraction of Inspired Oxygen 21 07/13/24 12:00 07/13/24 16:00 07/13/24 20:00 Temperature 36.6 C 36.1 C L 37.0 C Pulse Rate 96 86 94 Respiratory Rate 18 18 18 Blood Pressure 132/76 146/56 H 161/76 H Pulse Oximetry 97 98 94 Oxygen Delivery Fraction of Inspired Oxygen 07/13/24 20:00 07/14/24 00:00 07/14/24 00:00 Temperature 36.4 C Pulse Rate 93 95 89 Respiratory Rate 18 Blood Pressure 147/74 H Pulse Oximetry 94 Oxygen Delivery Fraction of Inspired Oxygen 07/14/24 04:00 07/14/24 04:00 Temperature 36.4 C L Pulse Rate 87 89 Respiratory Rate 18 Blood Pressure 163/84 H Pulse Oximetry 97 Oxygen Delivery Fraction of Inspired Oxygen Intake/Output Intake/Output: Intake & Output 07/11/24 07/12/24 07/13/24 07/14/24 23:59 23:59 23:59 23:59 Intake Total 3479.5 3360.5 2552.5 150 Output Total 2200 1350 1400 Balance 1279.5 2010.5 1152.5 150 Meds/Results Medications: Active Medications Generic Name Dose Route Start Last Admin Trade Name Freq PRN Reason Stop Dose Admin Alteplase, Recombinant 2 mg 07/11/24 05:49 07/13/24 06:09 Alteplase 2 Mg Vial (Cathflo) IV PUSH 2 mg ONCE PRN Administration Line Occlusion Dextrose 12.5 gm 07/02/24 13:59 Dextrose 50% 25 Gm/50 Ml Syringe IV PUSH PRN PRN Hypoglycemia Protocol Enoxaparin Sodium 40 mg 06/29/24 09:00 07/13/24 08:49 Enoxaparin 40 Mg/0.4 Ml Syringe SUB-Q 40 mg DAILY VANDANA Administration Fentanyl Citrate 12.5 mcg 07/04/24 16:56 Fentanyl Citrate Inj (*Crx) 100 Mcg/2 Ml Vial IV PUSH Q2H PRN Breakthrough Pain Rated 4-6 or NPO Fentanyl Citrate 25 mcg 07/04/24 16:56 07/09/24 15:06 Fentanyl Citrate Inj (*Crx) 100 Mcg/2 Ml Vial IV PUSH 25 mcg Q2H PRN Administration Breakthrough Pain Rated 7-10 or NPO Glucagon 1 mg 07/02/24 13:59 Glucagon For Inj 1 Mg Vial IM PRN PRN Hypoglycemia Protocol Glucose 15 gm 07/02/24 13:59 Glucose Oral Gel 15 Gm Of Glucse In 37.5 Gm Tube PO PRN PRN Hypoglycemia Protocol Hydralazine HCl 20 mg 07/02/24 10:27 07/14/24 05:17 Hydralazine Hcl 20 Mg/Ml Vial IV PUSH 20 mg Q6H PRN Administration Hypertension Dextrose 1,000 mls @ 100 mls/hr 07/02/24 13:59 Dextrose 5% 1,000 Ml IVPB PRN PRN Hypoglycemia Protocol Ibuprofen 800 mg in 200 mls @ 400 mls/hr 07/06/24 18:50 07/13/24 22:55 Caldolor 800 Mg/200 Ml IVPB Infused Q6H PRN Infusion Breakthrough Pain Rated 1-3 or NPO Dextrose 1,000 mls @ 50 mls/hr 07/13/24 08:07 Dextrose 10% IV CONT .Q20H PRN if PN is interrupted Multivitamins 1.25 ml/ 1,002.5 mls @ 70 mls/hr 07/13/24 09:30 07/13/24 23:57 Multivitamins 1.25 ml/ Amino IV CONT 70 mls/hr Acids/Electrolytes/Dextrose .[id number] VANDANA Administration Protocol Fat Emulsion Intravenous 250 mls @ 20.833 mls/hr 07/13/24 09:30 07/13/24 23:55 Lipids 20% IVPB Infused Q24H VANDANA Infusion Cefepime HCl 2 gm in 50 mls @ 100 mls/hr 07/13/24 09:00 07/14/24 01:15 Maxipime 2 Gm/Ns 50 Ml IVPB 07/16/24 23:59 Infused Q8H VANDANA Infusion Metronidazole 500 mg in 100 mls @ 100 mls/hr 07/13/24 14:00 07/14/24 06:15 Flagyl 500 Mg/Iso Soln 100 Ml IVPB 07/16/24 23:59 Infused Q8HR VANDANA Infusion Lorazepam 2 mg 07/07/24 16:01 07/09/24 22:02 Lorazepam Inj (*Crx) 2 Mg/Ml Vial IV PUSH 2 mg Q4H PRN Administration CIWA 8-15 Metoprolol Tartrate 5 mg 07/02/24 08:51 07/11/24 10:35 Metoprolol Tartrate Inj 5 Mg/5 Ml Vial IV PUSH 5 mg Q4H PRN Administration Tachycardia Naloxone HCl 0.1 mg 07/06/24 18:50 Naloxone Hcl 0.4 Mg/Ml Vial IV PUSH Q2M PRN Opiate Reversal Ondansetron HCl 4 mg 06/27/24 08:21 07/12/24 10:06 Ondansetron Inj 4 Mg/2 Ml Vial IV PUSH 4 mg Q4H PRN Administration Nausea Potassium Chloride 40 meq 07/11/24 11:50 07/13/24 16:32 Potassium Chloride 20 Meq Packet (For Liquid) PO 40 meq BID VANDANA Administration Sodium Bicarbonate 650 mg 07/10/24 17:00 07/13/24 16:33 Sodium Bicarbonate Tab 650 Mg Tablet PO 650 mg BID VANDANA Administration Sodium Chloride 10 ml 07/02/24 22:00 07/14/24 05:14 Central Line Flush IV PUSH 10 ml Q8HR VANDANA Administration Sodium Chloride 10 ml 07/02/24 15:38 07/04/24 14:13 Central Line Flush IV PUSH 10 ml PRN PRN Administration with TPN bag changes Sodium Chloride 20 ml 07/02/24 15:38 Central Line Flush IV PUSH PRN PRN after blood draws Thiamine HCl 100 mg 06/27/24 09:00 07/13/24 08:49 Thiamine Hcl 200 Mg/2 Ml Vial IV PUSH 100 mg DAILY VANDANA Administration Radiology Results: ITS Impressions Chest/Abdomen/Pelvis CTA 06/27/24 06:17 IMPRESSION: CHEST: 1. No pulmonary embolism. No aortic dissection 2. No acute cardiopulmonary pathology. ABDOMEN/PELVIS: 1. Small bowel obstruction with the transition zone in the terminal ileum area. Clinical correlation advised. 2. No evidence of appendicitis, or diverticulitis. Head CT 06/27/24 06:59 IMPRESSION: No acute intracranial findings. Cervical Spine CT 06/27/24 07:58 IMPRESSION: No acute osseous abnormality cervical spine. Multilevel degenerative disc disease. NG Tube Placement 07/02/24 07:18 IMPRESSION: Fluoroscopy used during NG tube placement in the stomach. Small Bowel X-Ray 07/05/24 16:01 IMPRESSION: 1. Persistent ileus versus small bowel obstruction with contrast not having reached the distalmost dilated loops of gas-filled small bowel over the course of 6 hours. Abdomen/Pelvis CT 07/07/24 05:20 Impression: Small amount of pneumoperitoneum, likely postoperative with evidence of recent midline incision stapling since prior exam. Correlate with surgical history. Bowel distention/bowel obstruction is essentially resolved as compared to prior exam. Small bowel evaluation is limited on the current exam due to extensive matting together of bowel loops. Small amount of ascites. Small pleural effusions with bibasilar pulmonary edema/atelectasis versus pneumonia. Correlate clinically. Chest X-Ray 07/08/24 13:34 Impression: 1: Developing patchy bilateral airspace disease, compatible with pneumonia. Venous Doppler Study 07/09/24 00:02 IMPRESSION: Negative right upper extremity venous US. No deep vein thrombosis. Upper GI Series 07/09/24 13:13 IMPRESSION: 1. No bowel obstruction or ileus with normal small bowel transit time and normal caliber and mucosal fold pattern to the small bowel. Abdomen X-Ray 07/13/24 10:14 IMPRESSION: 1. Several intermittently mildly dilated loops of small bowel throughout the abdomen and pelvis and favor postoperative ileus over obstruction. Labs Labs: Laboratory Results - last 24 hr 07/13/24 07/13/24 07/13/24 09:06 12:08 17:52 WBC 10.4 H RBC 3.07 L Hgb 9.6 L Hct 30.5 L MCV 99.3 MCH 31.3 MCHC 31.5 L RDW 14.1 Plt Count 370 MPV 11.1 H Immature Gran % (Auto) 1.9 H Neut % (Auto) 71.8 Lymph % (Auto) 16.8 L [place] % (Auto) 7.2 Eos % (Auto) 1.5 Baso % (Auto) 0.8 Lymph # (Auto) 1.75 [place] # (Auto) 0.8 H Eos # (Auto) 0.2 Baso # (Auto) 0.1 Abs Immat Gran (auto) 0.20 H Absolute Neuts (auto) 7.5 H Absolute Nucleated RBC 0.000 Nucleated RBC % 0.0 APTT 25.5 Sodium 138 Potassium 3.6 Chloride 110 H Carbon Dioxide 19 L Anion Gap 9 BUN 18 Creatinine 0.79 Estim Creat Clear Calc 77 Estimated GFR > 60 Glucose 78 POC Capillary Glucose 89 117 H Calcium 7.4 L Phosphorus Magnesium 2.1 Transferrin 101 L Total Bilirubin 0.5 AST 28 ALT 14 Alkaline Phosphatase 93 C-Reactive Protein 4.4 H Total Protein 6.0 L Albumin 2.4 L Triglycerides 198 H 07/14/24 07/14/24 07/14/24 00:49 05:12 06:38 WBC RBC Hgb Hct MCV MCH MCHC RDW Plt Count MPV Immature Gran % (Auto) Neut % (Auto) Lymph % (Auto) [place] % (Auto) Eos % (Auto) Baso % (Auto) Lymph # (Auto) [place] # (Auto) Eos # (Auto) Baso # (Auto) Abs Immat Gran (auto) Absolute Neuts (auto) Absolute Nucleated RBC Nucleated RBC % APTT Sodium 135 L Potassium 3.4 Chloride 106 Carbon Dioxide 21 L Anion Gap 8 BUN 18 Creatinine 0.73 Estim Creat Clear Calc 83 Estimated GFR > 60 Glucose 102 POC Capillary Glucose 124 H 115 H Calcium 7.6 L Phosphorus 3.1 Magnesium Transferrin Total Bilirubin AST ALT Alkaline Phosphatase C-Reactive Protein Total Protein Albumin Triglycerides 188 H
[2024-07-14 08:00] VITALS: BP 150/83; PULSE 97; PULSE 98; RESP 14; TEMP 36.7; O2SAT 95; O2SAT 98
[2024-07-14] MEDS: POTASSIUM CHLORIDE 20 MEQ PACKET (FOR LIQUID) 40 MEQ PO ×2 (09:33→17:38)
[2024-07-14] MEDS: ENOXAPARIN 40 MG/0.4 ML SYRINGE SUB-Q (09:33)
[2024-07-14] MEDS: SODIUM BICARBONATE TAB 650 MG TABLET PO ×2 (09:33→17:38)
[2024-07-14] MEDS: THIAMINE HCL 200 MG/2 ML VIAL 100 MG IV PUSH (09:34)
[2024-07-14] MEDS: FAT EMULSIONS IV 20% 250 ML 20.83 ML IVPB (10:19)
[2024-07-14 12:00] VITALS: BP 149/81; PULSE 107; PULSE 89; RESP 14; TEMP 36.4; O2SAT 98
[2024-07-14 12:27] LABS: Glucose Point of Care 136 mg/dl (65-105)
[2024-07-14] MEDS: AMINO ACIDS 5%/D15W/E-LYTES/CA 1,000 ML with MULTIVITAMINS-12 INJ VIAL 1 1.25 ML, MULTI... 70 ML IV CONT (13:25)
--- NOTE | 2024-07-14 15:21 | P.PNIM_ITS ---
Progress Note: A&P Assessment and Plan (1) Small bowel obstruction: Code(s): K56.609 - Unspecified intestinal obstruction, unspecified as to partial versus complete obstruction Status: Acute Assessment and Plan: Patient admitted after complaints of ABD pain with N/V. CT chest abdomen pelvis CTA was performed which showed no PE no aortic dissection. Abdomen pelvis showed small-bowel obstruction with the transition zone in the terminal ileum area. No evidence of appendicitis or diverticulitis. General surgery was consulted and patient was taken for exploratory laparotomy 06/29/2024 for repair serosal tears x2. IV fluids switched to Dextrose 5/water NA up to 149 and BS 68. Patient had pulled out his NG tube which was replaced under fluoroscopy, mild distention noted reporting having flatulence and bowel movement reported overnight, Tolerating TPN . Continue to encourage patient to get up and perform activity ordered PT/OT. reported he appeared more lethargic yesterday afternoon pain medication adjusted by surgery less lethargic today small bowel series showed persistent ileus versus small-bowel obstruction with contrast not having reach the distal most dilated loops . Patient was post-op day 7 and KUB which continued to show postoperative SBO will need to continue NPO and NG tube. He had a repeat CT scan on 07/06/2024 which shown findings compatible with small bowel obstruction with transition point in the mid small bowel, small amount of ascites with mesenteric edema, small right pleural effusion with patchy bibasilar pulmonary consolidation. He was then taken to the OR on 07/06/[address] Shipman 4 lysis of adhesion with resection of the jejunal perforation with anastomosis. * Diet advanced to soft diet * pain control * ambulate as tolerated * Antiemetics * Incentive spirometer * PT/OT * Continue serial KUB * Continue wound vac evaluated by surgery (2) Chronic alcohol use: Code(s): F10.90 - Alcohol use, unspecified, uncomplicated Status: Chronic Assessment and Plan: Does not appear in withdrawal at this time will continue to monitor * Last drink 06/23 * Thiamine, folic acid, and multi-vitamin * PPI daily * librium PRN * CIWA daily * Monitor and replenish electrolytes as needed (3) Hypertension: Code(s): I10 - Essential (primary) hypertension Status: Acute Assessment and Plan: patient has been hypertensive systolics running between 180s to 160s. patient does not take any hypertensive medications at home will re-evaluate prior to discharge if patient will need oral antihypertensive medications at discharge after current acute issues are resolved. * I added hydralazine 20 mg IV push as needed for systolics greater than 160 * episodes of tachycardia surgery added metoprolol IV push PRN * BP per unit protocol (4) ORTEGA (acute kidney injury): Code(s): N17.9 - Acute kidney failure, unspecified Status: Resolved Assessment and Plan: * Acute kidney injury CR 1.98 POA since resolved with IV fluids (5) Hypernatremia: Code(s): E87.0 - Hyperosmolality and hypernatremia Status: Resolved Assessment and Plan: * Patient now with hypernatremia at 149 discussed with surgery we will switch his IV fluids to dextrose 5 and water follow-up BMP later on today (6) Hyponatremia: Code(s): E87.1 - Hypo-osmolality and hyponatremia Status: Resolved Assessment and Plan: * Resolved likely secondary to dehydration and ETOH abuse patient was initially 130 POA resolved with IV fluids Plan Code status: Full code per patient DVT prophylaxis: Lovenox Stress ulcer prophylaxis: Protonix 40 daily PT/OT notes: Ambulatory Disposition: Patient continues admission to the medical unit for further treatment small-bowel obstruction wound vac in place advancing diet to soft CC consulted to assist in rehab placement. Time Spent With Patient Time with patient: 15 - 25 minutes Subjective Date/time seen: 07/14/24 15:21 Interval history: This is a 64-year-old male who presented to the ED with few days history of nausea vomiting and abdominal pain. He also reports not having bowel movement for past few days. Was found to has small-bowel obstruction underwent exploratory laparotomy in it colitis with repair of serosal tears 06/30/2024. He had a repeat CT scan on 07/06/2024 which shown findings compatible with small bowel obstruction with transition point in the mid small bowel, small amount of ascites with mesenteric edema, small right pleural effusion with patchy bibasilar pulmonary consolidation. He was then taken to the OR on 07/06/[address] Umberto Betancur lysis of adhesion with resection of the jejunal perforation with anastomosis. 07/14/2024: Patient up in chair today reporting BM and gas. Minimal ABD pain, scant drainage continues from wound vac. He denied further N/V and tolerated full liquid surgery advanced to soft diet. Denied any CP, SOB, or dizziness. Review of Systems Review of Systems: All systems reviewed & are unremarkable except as noted in HPI and below Exam Const: General: comfortable and no acute distress HENMT: Mouth: Yes moist mucous membranes Eyes: General: appearance normal, both eyes and all related structures Pupils: Equal, round and reactive pupils present Neck: Neck: supple and no JVD Resp: Effort & Inspection: normal respiratory effort Auscultation: clear to auscultation bilaterally Cardio: Rate: regular rate Rhythm: regular rhythm GI: Auscultation: abnormal bowel sounds (hypoactive) Other: Midline incision with wound vac in place Skin: General skin exam: normal color Neuro: General: gait normal Cranial nerves: Yes Equal, round and reactive pupils present Speech: normal speech Extrem: General: normal to inspection Psych: Mental Status: mental status grossly normal Affect: normal affect Objective Data Vital Signs Vital Signs: Vital Signs - 24 hr 07/13/24 16:00 07/13/24 20:00 07/13/24 20:00 Temperature 97 F L 98.6 F Pulse Rate 86 94 93 Respiratory Rate 18 18 Blood Pressure 146/56 H 161/76 H Pulse Oximetry 98 94 07/14/24 00:00 07/14/24 00:00 07/14/24 04:00 Temperature 97.6 F Pulse Rate 95 89 87 Respiratory Rate 18 Blood Pressure 147/74 H Pulse Oximetry 94 07/14/24 04:00 07/14/24 08:00 Temperature 97.5 F L 98.1 F Pulse Rate 89 98 Respiratory Rate 18 14 Blood Pressure 163/84 H 150/83 H Pulse Oximetry 97 95 Intake/Output Intake/Output: Intake & Output 07/11/24 07/12/24 07/13/24 07/14/24 23:59 23:59 23:59 23:59 Intake Total 3479.5 3360.5 2552.5 1092.7 Output Total 2200 1350 1400 Balance 1279.5 2010.5 1152.5 1092.7 Meds/Results Medications: Active Medications Generic Name Dose Route Start Last Admin Trade Name Freq PRN Reason Stop Dose Admin Alteplase, Recombinant 2 mg 07/11/24 05:49 07/13/24 06:09 Alteplase 2 Mg Vial (Cathflo) IV PUSH 2 mg ONCE PRN Administration Line Occlusion Dextrose 12.5 gm 07/02/24 13:59 Dextrose 50% 25 Gm/50 Ml Syringe IV PUSH PRN PRN Hypoglycemia Protocol Enoxaparin Sodium 40 mg 06/29/24 09:00 07/14/24 09:33 Enoxaparin 40 Mg/0.4 Ml Syringe SUB-Q 40 mg DAILY VANDANA Administration Fentanyl Citrate 12.5 mcg 07/04/24 16:56 Fentanyl Citrate Inj (*Crx) 100 Mcg/2 Ml Vial IV PUSH Q2H PRN Breakthrough Pain Rated 4-6 or NPO Fentanyl Citrate 25 mcg 07/04/24 16:56 07/09/24 15:06 Fentanyl Citrate Inj (*Crx) 100 Mcg/2 Ml Vial IV PUSH 25 mcg Q2H PRN Administration Breakthrough Pain Rated 7-10 or NPO Glucagon 1 mg 07/02/24 13:59 Glucagon For Inj 1 Mg Vial IM PRN PRN Hypoglycemia Protocol Glucose 15 gm 07/02/24 13:59 Glucose Oral Gel 15 Gm Of Glucse In 37.5 Gm Tube PO PRN PRN Hypoglycemia Protocol Hydralazine HCl 20 mg 07/02/24 10:27 07/14/24 05:17 Hydralazine Hcl 20 Mg/Ml Vial IV PUSH 20 mg Q6H PRN Administration Hypertension Dextrose 1,000 mls @ 100 mls/hr 07/02/24 13:59 Dextrose 5% 1,000 Ml IVPB PRN PRN Hypoglycemia Protocol Ibuprofen 800 mg in 200 mls @ 400 mls/hr 07/06/24 18:50 07/13/24 22:55 Caldolor 800 Mg/200 Ml IVPB Infused Q6H PRN Infusion Breakthrough Pain Rated 1-3 or NPO Dextrose 1,000 mls @ 50 mls/hr 07/13/24 08:07 Dextrose 10% IV CONT .Q20H PRN if PN is interrupted Multivitamins 1.25 ml/ 1,002.5 mls @ 70 mls/hr 07/13/24 09:30 07/14/24 13:25 Multivitamins 1.25 ml/ Amino IV CONT 70 mls/hr Acids/Electrolytes/Dextrose .[id number] VANDANA Administration Protocol Fat Emulsion Intravenous 250 mls @ 20.833 mls/hr 07/13/24 09:30 07/14/24 10:19 Lipids 20% IVPB 20.83 mls/hr Q24H VANDANA Administration Cefepime HCl 2 gm in 50 mls @ 100 mls/hr 07/13/24 09:00 07/14/24 09:32 Maxipime 2 Gm/Ns 50 Ml IVPB 07/16/24 23:59 100 mls/hr Q8H VANDANA Administration Metronidazole 500 mg in 100 mls @ 100 mls/hr 07/13/24 14:00 07/14/24 13:20 Flagyl 500 Mg/Iso Soln 100 Ml IVPB 07/16/24 23:59 100 mls/hr Q8HR VANDANA Administration Lorazepam 2 mg 07/07/24 16:01 07/09/24 22:02 Lorazepam Inj (*Crx) 2 Mg/Ml Vial IV PUSH 2 mg Q4H PRN Administration CIWA 8-15 Metoprolol Tartrate 5 mg 07/02/24 08:51 07/11/24 10:35 Metoprolol Tartrate Inj 5 Mg/5 Ml Vial IV PUSH 5 mg Q4H PRN Administration Tachycardia Naloxone HCl 0.1 mg 07/06/24 18:50 Naloxone Hcl 0.4 Mg/Ml Vial IV PUSH Q2M PRN Opiate Reversal Ondansetron HCl 4 mg 06/27/24 08:21 07/12/24 10:06 Ondansetron Inj 4 Mg/2 Ml Vial IV PUSH 4 mg Q4H PRN Administration Nausea Potassium Chloride 40 meq 07/11/24 11:50 07/14/24 09:33 Potassium Chloride 20 Meq Packet (For Liquid) PO 40 meq BID VANDANA Administration Sodium Bicarbonate 650 mg 07/10/24 17:00 07/14/24 09:33 Sodium Bicarbonate Tab 650 Mg Tablet PO 650 mg BID VANDANA Administration Sodium Chloride 10 ml 07/02/24 22:00 07/14/24 13:21 Central Line Flush IV PUSH 10 ml Q8HR VANDANA Administration Sodium Chloride 10 ml 07/02/24 15:38 07/04/24 14:13 Central Line Flush IV PUSH 10 ml PRN PRN Administration with TPN bag changes Sodium Chloride 20 ml 07/02/24 15:38 Central Line Flush IV PUSH PRN PRN after blood draws Thiamine HCl 100 mg 06/27/24 09:00 07/14/24 09:34 Thiamine Hcl 200 Mg/2 Ml Vial IV PUSH 100 mg DAILY VANDANA Administration Radiology Results: ITS Impressions Chest/Abdomen/Pelvis CTA 06/27/24 06:17 IMPRESSION: CHEST: 1. No pulmonary embolism. No aortic dissection 2. No acute cardiopulmonary pathology. ABDOMEN/PELVIS: 1. Small bowel obstruction with the transition zone in the terminal ileum area. Clinical correlation advised. 2. No evidence of appendicitis, or diverticulitis. Head CT 06/27/24 06:59 IMPRESSION: No acute intracranial findings. Cervical Spine CT 06/27/24 07:58 IMPRESSION: No acute osseous abnormality cervical spine. Multilevel degenerative disc disease. NG Tube Placement 07/02/24 07:18 IMPRESSION: Fluoroscopy used during NG tube placement in the stomach. Small Bowel X-Ray 07/05/24 16:01 IMPRESSION: 1. Persistent ileus versus small bowel obstruction with contrast not having reached the distalmost dilated loops of gas-filled small bowel over the course of 6 hours. Abdomen/Pelvis CT 07/07/24 05:20 Impression: Small amount of pneumoperitoneum, likely postoperative with evidence of recent m idline incision stapling since prior exam. Correlate with surgical history. Bowel distention/bowel obstruction is essentially resolved as compared to prior exam. Small bowel evaluation is limited on the current exam due to extensive matting together of bowel loops. Small amount of ascites. Small pleural effusions with bibasilar pulmonary edema/atelectasis versus pneumonia. Correlate clinically. Chest X-Ray 07/08/24 13:34 Impression: 1: Developing patchy bilateral airspace disease, compatible with pneumonia. Venous Doppler Study 07/09/24 00:02 IMPRESSION: Negative right upper extremity venous US. No deep vein thrombosis. Upper GI Series 07/09/24 13:13 IMPRESSION: 1. No bowel obstruction or ileus with normal small bowel transit time and normal caliber and mucosal fold pattern to the small bowel. Abdomen X-Ray 07/14/24 10:42 Impression: 1: Moderately dilated small bowel loops unchanged from prior study, most likely postoperative ileus versus obstruction. Labs Labs: Laboratory Results - last 24 hr 07/13/24 07/14/24 07/14/24 17:52 00:49 05:12 WBC RBC Hgb Hct MCV MCH MCHC RDW Plt Count MPV Immature Gran % (Auto) Neut % (Auto) Lymph % (Auto) [place] % (Auto) Eos % (Auto) Baso % (Auto) Lymph # (Auto) [place] # (Auto) Eos # (Auto) Baso # (Auto) Abs Immat Gran (auto) Absolute Neuts (auto) Absolute Nucleated RBC Nucleated RBC % Sodium Potassium Chloride Carbon Dioxide Anion Gap BUN Creatinine Estim Creat Clear Calc Estimated GFR Glucose POC Capillary Glucose 117 H 124 H 115 H Calcium Phosphorus Triglycerides 07/14/24 07/14/24 06:38 12:21 WBC 9.5 RBC 3.20 L Hgb 9.8 L Hct 30.8 L MCV 96.3 MCH 30.6 MCHC 31.8 L RDW 13.9 Plt Count 428 H MPV 10.4 Immature Gran % (Auto) 1.9 H Neut % (Auto) 69.1 Lymph % (Auto) 19.4 [place] % (Auto) 7.8 Eos % (Auto) 1.2 Baso % (Auto) 0.6 Lymph # (Auto) 1.83 [place] # (Auto) 0.7 H Eos # (Auto) 0.1 Baso # (Auto) 0.1 Abs Immat Gran (auto) 0.18 H Absolute Neuts (auto) 6.5 Absolute Nucleated RBC 0.000 Nucleated RBC % 0.0 Sodium 135 L Potassium 3.4 Chloride 106 Carbon Dioxide 21 L Anion Gap 8 BUN 18 Creatinine 0.73 Estim Creat Clear Calc 83 Estimated GFR > 60 Glucose 102 POC Capillary Glucose 136 H Calcium 7.6 L Phosphorus 3.1 Triglycerides 188 H Quality VTE Prophylaxis VTE prophylaxis: pharmacologic ordered -Patient's previous records reviewed on admission -ER notes reviewed in detail on admission -discussed all findings and current treatment plan with patient/Family/POA -Consultations reviewed for recommendations -Patient's disposition for safe discharge discussed with top case assembler Dictation performed by [employer] direct speech recognition software, therefore sheetrock applicator variants and typographical errors may occur. Hospitalist MIPS Advance Care Plan I have confirmed that the patient's Advanced Care Plan is present, code status is documented, or surrogate decision maker is listed in patient medical record.: Yes Medication Reconciliation I have utilized all available resources to obtain, update and review the patients current medications (includes all prescriptions, OTC, herbals, cannabis, and nutritional supplements).: Yes The patient is not eligible for med reconciliation; the patient is in a emergent medical situation where delaying treatment would jeopardize the patients health.: No
[2024-07-14 16:00] VITALS: BP 148/78; PULSE 97; PULSE 99; RESP 14; TEMP 36.9; O2SAT 95
[2024-07-14 20:00] VITALS: BP 145/79; PULSE 101; PULSE 103; RESP 16; TEMP 37.4; O2SAT 95
[2024-07-15] VITALS (7 sets, daily range): BP systolic 143–152; BP diastolic 82–91; PULSE 90–110; RESP 16–20; TEMP 36.7–37.4; O2SAT 95–99
[2024-07-15 00:35] LABS: Glucose Point of Care 115 mg/dl (65-105)
[2024-07-15] MEDS: CEFEPIME 2 GM/NS 50 ML 2 GM/50 ML BAG IVPB ×3 (01:01→16:45)
[2024-07-15] MEDS: AMINO ACIDS 5%/D15W/E-LYTES/CA 1,000 ML with MULTIVITAMINS-12 INJ VIAL 1 1.25 ML, MULTI... 70 ML IV CONT ×2 (04:49→17:58)
[2024-07-15] MEDS: metroNIDAZOLE 500 MG/ISO 100ML 500 MG/100 ML BAG 100 MG IVPB ×2 (05:36→13:40)
[2024-07-15] MEDS: CENTRAL LINE FLUSH 10 ML IV PUSH ×3 (05:37→20:22)
[2024-07-15 06:44] LABS: Basophils Absolute Auto 0.1 K/mm3 (0.0-0.1); Basophils Percent Auto 0.6 % (0.2-1.2); Eosinophils Absolute Auto 0.2 K/mm3 (0-0.3); Eosinophils Percent Auto 1.8 % (0-4.4); Hematocrit 26.6 % (42.0-52.0); Hemoglobin 8.7 g/dL (14.0-18.0); Immature Granulocyte Absolute 0.15 K/mm3 (0.00-0.031); Immature Granulocyte Percent A 1.7 % (0-0.5); Lymphocytes Absolute Auto 1.43 K/mm3 (0.9-3.2); Lymphocytes Percent Auto 16.2 % (18.3-44.2); Mean Corpuscular HGB Conc 32.7 g/dl (32-36); Mean Corpuscular Hemoglobin 30.6 pg (26-34); Mean Corpuscular Volume 93.7 fl (80-100); Mean Platelet Volume 10.5 fl (7.4-10.4); Monocytes Absolute Auto 0.9 K/mm3 (0.1-0.6); Monocytes Percent Auto 9.9 % (2.6-8.5); Neutrophils Absolute Auto 6.2 K/mm3 (1.3-6.7); Neutrophils Percent Auto 69.8 % (45.5-73.1); Platelet Count Result 401 k/mm3 (150-375); Red Blood Count 2.84 M/mm3 (4.6-6.20); Red Cell Distribution Width 13.7 % (11.5-14.5); White Blood Count 8.8 K/mm3 (4.5-10.0)
[2024-07-15 06:54] LABS: Glucose Point of Care 113 mg/dl (65-105)
[2024-07-15 06:56] LABS: Alanine Aminotransferase 14 U/L (6-50); Albumin Level 2.2 g/dL (3.5-5.1); Alkaline Phosphatase 84 U/L (38-126); Anion Gap 6 mmol/L (4-12); Aspartate Amino Transferase 27 U/L (17-59); Bilirubin,Total 0.3 mg/dL (0.2-1.3); Blood Urea Nitrogen 15 mg/dL (9-20); Calcium 7.5 mg/dL (8.4-10.2); Carbon Dioxide 22 mmol/L (22-30); Chloride 105 mmol/L (98-107); Estimated CRCL calculation 94 ml/min; Estimated Glomerular Filt Rate > 60; Glucose 109 mg/dL (65-110); Phosphorus 3.1 mg/dL (2.5-4.5); Potassium 3.1 mmol/L (3.4-5.0); Sodium 133 mmol/L (137-145)
--- NOTE | 2024-07-15 08:22 | PC.NURSE ---
Patient off floor to XR via stretcher.
[2024-07-15] MEDS: PANTOPRAZOLE SODIUM IV 40 MG VIAL IV PUSH (11:32)
[2024-07-15] MEDS: THIAMINE HCL 200 MG/2 ML VIAL 100 MG IV PUSH (11:32)
[2024-07-15] MEDS: ENOXAPARIN 40 MG/0.4 ML SYRINGE SUB-Q (11:33)
--- NOTE | 2024-07-15 11:34 | PCPTNOTE ---
Attempted to see patient for PT, however patient just got back from testing, RN in room and asked patient if he wanted to participate with PT, patient declined.
[2024-07-15 11:39] LABS: Glucose Point of Care 112 mg/dl (65-105)
[2024-07-15] MEDS: FAT EMULSIONS IV 20% 250 ML 20.83 ML IVPB (11:39)
--- NOTE | 2024-07-15 13:33 | P.PNIM_ITS ---
Progress Note: A&P Assessment and Plan (1) Small bowel obstruction: Code(s): K56.609 - Unspecified intestinal obstruction, unspecified as to partial versus complete obstruction Status: Acute Assessment and Plan: Patient admitted after complaints of ABD pain with N/V. CT chest abdomen pelvis CTA was performed which showed no PE no aortic dissection. Abdomen pelvis showed small-bowel obstruction with the transition zone in the terminal ileum area. No evidence of appendicitis or diverticulitis. General surgery was consulted and patient was taken for exploratory laparotomy 06/29/2024 for repair serosal tears x2. IV fluids switched to Dextrose 5/water NA up to 149 and BS 68. Patient had pulled out his NG tube which was replaced under fluoroscopy, mild distention noted reporting having flatulence and bowel movement reported overnight, Tolerating TPN . Continue to encourage patient to get up and perform activity ordered PT/OT. reported he appeared more lethargic yesterday afternoon pain medication adjusted by surgery less lethargic today small bowel series showed persistent ileus versus small-bowel obstruction with contrast not having reach the distal most dilated loops . Patient was post-op day 7 and KUB which continued to show postoperative SBO. He had a repeat CT scan on 07/06/2024 which shown findings compatible with small bowel obstruction with transition point in the mid small bowel, small amount of ascites with mesenteric edema, small right pleural effusion with patchy bibasilar pulmonary consolidation. He was then taken to the OR on 07/06/[address] Shipman 4 lysis of adhesion with resection of the jejunal perforation with anastomosis. With wound vac placed. He had a small bowel series 07/15/2024 showed normal follow through. Patient passing gas and having BM's * Diet advanced to soft diet * pain control * ambulate as tolerated * Antiemetics * Incentive spirometer * PT/OT * Continue serial KUB * Continue wound vac evaluated by surgery (2) Hypertension: Code(s): I10 - Essential (primary) hypertension Status: Acute Assessment and Plan: patient has been hypertensive systolics running between 180s to 160s. patient does not take any hypertensive medications at home will re-evaluate prior to discharge if patient will need oral antihypertensive medications at discharge after current acute issues are resolved. Transition to oral medications now that he is tolerating diet * I added hydralazine 20 mg IV push as needed for systolics greater than 160 * episodes of tachycardia surgery added metoprolol IV push PRN * BP per unit protocol (3) Hypokalemia: Code(s): E87.6 - Hypokalemia Status: Acute Assessment and Plan: * Potassium 3.1 * replenished * Keep K+ >4.0 (4) Chronic alcohol use: Code(s): F10.90 - Alcohol use, unspecified, uncomplicated Status: Chronic Assessment and Plan: Does not appear in withdrawal at this time will continue to monitor * Last drink / * Thiamine, folic acid, and multi-vitamin * PPI daily * librium PRN * CIWA daily * Monitor and replenish electrolytes as needed (5) ORTEGA (acute kidney injury): Code(s): N17.9 - Acute kidney failure, unspecified Status: Resolved Assessment and Plan: * Acute kidney injury CR 1.98 POA since resolved with IV fluids (6) Hyponatremia: Code(s): E87.1 - Hypo-osmolality and hyponatremia Status: Resolved Assessment and Plan: * Resolved likely secondary to dehydration and ETOH abuse patient was initially 130 POA resolved with IV fluids (7) Hypernatremia: Code(s): E87.0 - Hyperosmolality and hypernatremia Status: Resolved Assessment and Plan: * Patient now with hypernatremia at 149 discussed with surgery we will switch his IV fluids to dextrose 5 and water follow-up BMP later on today Plan Code status: Full code per patient DVT prophylaxis: Lovenox Stress ulcer prophylaxis: Protonix 40 daily PT/OT notes: Ambulatory Disposition: Patient continues admission to the medical unit for further t reatment small-bowel obstruction wound vac in place advancing diet to soft CC consulted to assist in rehab placement. Time Spent With Patient Time with patient: 15 - 25 minutes Subjective Date/time seen: 07/15/24 13:33 Interval history: This is a 64-year-old male who presented to the ED with few days history of nausea vomiting and abdominal pain. He also reports not having bowel movement for past few days. Was found to has small-bowel obstruction underwent exploratory laparotomy in it colitis with repair of serosal tears 06/30/2024. He had a repeat CT scan on 07/06/2024 which shown findings compatible with small bowel obstruction with transition point in the mid small bowel, small amount of ascites with mesenteric edema, small right pleural effusion with patchy bibasilar pulmonary consolidation. He was then taken to the OR on 07/06/[address] Umberto Betancur lysis of adhesion with resection of the jejunal perforation with anastomosis. 07/15/2024: Patient still with mild nausea but no vomiting, mild ABD pain. He did tolerated soft diet last night reports BM and gas. KUB showed SBO but bowel series showed normal follow through. Review of Systems Review of Systems: All systems reviewed & are unremarkable except as noted in HPI and below Exam Const: General: comfortable and no acute distress HENMT: Mouth: Yes moist mucous membranes Eyes: General: appearance normal, both eyes and all related structures Pupils: Equal, round and reactive pupils present Neck: Neck: supple and no JVD Resp: Effort & Inspection: normal respiratory effort Auscultation: clear to auscultation bilaterally Cardio: Rate: regular rate Rhythm: regular rhythm GI: Auscultation: abnormal bowel sounds (hypoactive) Other: Midline incision with wound vac in place Skin: General skin exam: normal color Neuro: General: gait normal Cranial nerves: Yes Equal, round and reactive pupils present Speech: normal speech Extrem: General: normal to inspection Psych: Mental Status: mental status grossly normal Affect: normal affect Objective Data Vital Signs Vital Signs: Vital Signs - 24 hr 07/14/24 16:00 07/14/24 16:00 07/14/24 20:00 Temperature 98.4 F 99.4 F Pulse Rate 97 99 101 H Respiratory Rate 14 16 Blood Pressure 148/78 H 145/79 H Pulse Oximetry 95 95 Oxygen Delivery 07/14/24 20:00 07/14/24 20:00 07/15/24 00:00 Temperature 99.4 F Pulse Rate 103 H 104 H Respiratory Rate 16 Blood Pressure 152/85 H Pulse Oximetry 99 Oxygen Delivery Room Air 07/15/24 00:00 07/15/24 04:00 07/15/24 06:00 Temperature 98.0 F Pulse Rate 101 H 90 Respiratory Rate Blood Pressure 151/82 H Pulse Oximetry Oxygen Delivery 07/15/24 08:00 07/15/24 08:15 07/15/24 12:00 Temperature 98.2 F Pulse Rate 92 97 Respiratory Rate 16 Blood Pressure 151/82 H Pulse Oximetry 95 Oxygen Delivery Room Air 07/15/24 12:00 Temperature Pulse Rate 97 Respiratory Rate Blood Pressure Pulse Oximetry Oxygen Delivery Intake/Output Intake/Output: Intake & Output 07/12/24 07/13/24 07/14/24 07/15/24 23:59 23:59 23:59 23:59 Intake Total 3360.5 2552.5 1760.7 1302.5 Output Total 1350 1400 1200 500 Balance 2010.5 1152.5 560.7 802.5 Meds/Results Medications: Active Medications Generic Name Dose Route Start Last Admin Trade Name Freq PRN Reason Stop Dose Admin Alteplase, Recombinant 2 mg 07/11/24 05:49 07/13/24 06:09 Alteplase 2 Mg Vial (Cathflo) IV PUSH 2 mg ONCE PRN Administration Line Occlusion Dextrose 12.5 gm 07/02/24 13:59 Dextrose 50% 25 Gm/50 Ml Syringe IV PUSH PRN PRN Hypoglycemia Protocol Enoxaparin Sodium 40 mg 06/29/24 09:00 07/15/24 11:33 Enoxaparin 40 Mg/0.4 Ml Syringe SUB-Q 40 mg DAILY VANADNA Administration Glucagon 1 mg 07/02/24 13:59 Glucagon For Inj 1 Mg Vial IM PRN PRN Hypoglycemia Protocol Glucose 15 gm 07/02/24 13:59 Glucose Oral Gel 15 Gm Of Glucse In 37.5 Gm Tube PO PRN PRN Hypoglycemia Protocol Hydralazine HCl 20 mg 07/02/24 10:27 07/14/24 05:17 Hydralazine Hcl 20 Mg/Ml Vial IV PUSH 20 mg Q6H PRN Administration Hypertension Dextrose 1,000 mls @ 100 mls/hr 07/02/24 13:59 Dextrose 5% 1,000 Ml IVPB PRN PRN Hypoglycemia Protocol Ibuprofen 800 mg in 200 mls @ 400 mls/hr 07/06/24 18:50 07/13/24 22:55 Caldolor 800 Mg/200 Ml IVPB Infused Q6H PRN Infusion Breakthrough Pain Rated 1-3 or NPO Dextrose 1,000 mls @ 50 mls/hr 07/13/24 08:07 Dextrose 10% IV CONT .Q20H PRN if PN is interrupted Multivitamins 1.25 ml/ 1,002.5 mls @ 70 mls/hr 07/13/24 09:30 07/15/24 04:49 Multivitamins 1.25 ml/ Amino IV CONT 70 mls/hr Acids/Electrolytes/Dextrose .[id number] VANDANA Administration Protocol Fat Emulsion Intravenous 250 mls @ 20.833 mls/hr 07/13/24 09:30 07/15/24 11:39 Lipids 20% IVPB 20.83 mls/hr Q24H VANDANA Administration Cefepime HCl 2 gm in 50 mls @ 100 mls/hr 07/13/24 09:00 07/15/24 12:03 Maxipime 2 Gm/Ns 50 Ml IVPB 07/16/24 23:59 Infused Q8H VANDANA Infusion Metronidazole 500 mg in 100 mls @ 100 mls/hr 07/13/24 14:00 07/15/24 06:36 Flagyl 500 Mg/Iso Soln 100 Ml IVPB 07/16/24 23:59 Infused Q8HR VANDANA Infusion Lorazepam 2 mg 07/07/24 16:01 07/09/24 22:02 Lorazepam Inj (*Crx) 2 Mg/Ml Vial IV PUSH 2 mg Q4H PRN Administration CIWA 8-15 Metoprolol Tartrate 5 mg 07/02/24 08:51 07/11/24 10:35 Metoprolol Tartrate Inj 5 Mg/5 Ml Vial IV PUSH 5 mg Q4H PRN Administration Tachycardia Naloxone HCl 0.1 mg 07/06/24 18:50 Naloxone Hcl 0.4 Mg/Ml Vial IV PUSH Q2M PRN Opiate Reversal Ondansetron HCl 4 mg 06/27/24 08:21 07/12/24 10:06 Ondansetron Inj 4 Mg/2 Ml Vial IV PUSH 4 mg Q4H PRN Administration Nausea Pantoprazole Sodium 40 mg 07/15/24 09:00 07/15/24 11:32 Pantoprazole Sodium Iv 40 Mg Vial IV PUSH 40 mg QAM VANDANA Administration Potassium Chloride 40 meq 07/11/24 11:50 07/14/24 17:38 Potassium Chloride 20 Meq Packet (For Liquid) PO 40 meq BID VANDANA Administration Sodium Bicarbonate 650 mg 07/10/24 17:00 07/15/24 08:22 Sodium Bicarbonate Tab 650 Mg Tablet PO Not Given BID VANDANA Sodium Chloride 10 ml 07/02/24 22:00 07/15/24 05:37 Central Line Flush IV PUSH 10 ml Q8HR VANDANA Administration Sodium Chloride 10 ml 07/02/24 15:38 07/04/24 14:13 Central Line Flush IV PUSH 10 ml PRN PRN Administration with TPN bag changes Sodium Chloride 20 ml 07/02/24 15:38 Central Line Flush IV PUSH PRN PRN after blood draws Thiamine HCl 100 mg 06/27/24 09:00 07/15/24 11:32 Thiamine Hcl 200 Mg/2 Ml Vial IV PUSH 100 mg DAILY VANDANA Administration Radiology Results: ITS Impressions Chest/Abdomen/Pelvis CTA 06/27/24 06:17 IMPRESSION: CHEST: 1. No pulmonary embolism. No aortic dissection 2. No acute cardiopulmonary pathology. ABDOMEN/PELVIS: 1. Small bowel obstruction with the transition zone in the terminal ileum area. Clinical correlation advised. 2. No evidence of appendicitis, or diverticulitis. Head CT 06/27/24 06:59 IMPRESSION: No acute intracranial findings. Cervical Spine CT 06/27/24 07:58 IMPRESSION: No acute osseous abnormality cervical spine. Multilevel degenerative disc disease. NG Tube Placement 07/02/24 07:18 IMPRESSION: Fluoroscopy used during NG tube placement in the stomach. Abdomen/Pelvis CT 07/07/24 05:20 Impression: Small amount of pneumoperitoneum, likely postoperative with evidence of recent midline incision stapling since prior exam. Correlate with surgical history. Bowel distention/bowel obstruction is essentially resolved as compared to prior exam. Small bowel evaluation is limited on the current exam due to extensive matting together of bowel loops. Small amount of ascites. Small pleural effusions with bibasilar pulmonary edema/atelectasis versus pneumonia. Correlate clinically. Chest X-Ray 07/08/24 13:34 Impression: 1: Developing patchy bilateral airspace disease, compatible with pneumonia. Venous Doppler Study 07/09/24 00:02 IMPRESSION: Negative right upper extremity venous US. No deep vein thrombosis. Upper GI Series 07/09/24 13:13 IMPRESSION: 1. No bowel obstruction or ileus with normal small bowel transit time and normal caliber and mucosal fold pattern to the small bowel. Abdomen X-Ray 07/15/24 06:41 Impression: Small bowel obstruction. Small Bowel X-Ray 07/15/24 12:57 IMPRESSION: 1. Normal small bowel follow-through. Labs Labs: Laboratory Results - last 24 hr 07/15/24 07/15/24 07/15/24 00:31 06:12 06:45 WBC 8.8 RBC 2.84 L Hgb 8.7 L Hct 26.6 L MCV 93.7 MCH 30.6 MCHC 32.7 RDW 13.7 Plt Count 401 H MPV 10.5 H Immature Gran % (Auto) 1.7 H Neut % (Auto) 69.8 Lymph % (Auto) 16.2 L [place] % (Auto) 9.9 H Eos % (Auto) 1.8 Baso % (Auto) 0.6 Lymph # (Auto) 1.43 [place] # (Auto) 0.9 H Eos # (Auto) 0.2 Baso # (Auto) 0.1 Abs Immat Gran (auto) 0.15 H Absolute Neuts (auto) 6.2 Absolute Nucleated RBC 0.000 Nucleated RBC % 0.0 Sodium 133 L Potassium 3.1 L Chloride 105 Carbon Dioxide 22 Anion Gap 6 BUN 15 Creatinine 0.64 L Estim Creat Clear Calc 94 Estimated GFR > 60 Glucose 109 POC Capillary Glucose 115 H 113 H Calcium 7.5 L Phosphorus 3.1 Magnesium 2.0 Total Bilirubin 0.3 AST 27 ALT 14 Alkaline Phosphatase 84 Total Protein 5.0 L Albumin 2.2 L 07/15/24 11:36 WBC RBC Hgb Hct MCV MCH MCHC RDW Plt Count MPV Immature Gran % (Auto) Neut % (Auto) Lymph % (Auto) [place] % (Auto) Eos % (Auto) Baso % (Auto) Lymph # (Auto) [place] # (Auto) Eos # (Auto) Baso # (Auto) Abs Immat Gran (auto) Absolute Neuts (auto) Absolute Nucleated RBC Nucleated RBC % Sodium Potassium Chloride Carbon Dioxide Anion Gap BUN Creatinine Estim Creat Clear Calc Estimated GFR Glucose POC Capillary Glucose 112 H Calcium Phosphorus Magnesium Total Bilirubin AST ALT Alkaline Phosphatase Total Protein Albumin Quality VTE Prophylaxis VTE prophylaxis: pharmacologic ordered -Patient's previous records reviewed on admission -ER notes reviewed in detail on admission -discussed all findings and current treatment plan with patient/Family/POA -Consultations reviewed for recommendations -Patient's disposition for safe discharge discussed with counseling case manager Dictation performed by [employer] direct speech recognition software, therefore shared services and outsourcing manager variants and typographical errors may occur. Hospitalist MIPS Advance Care Plan I have confirmed that the patient's Advanced Care Plan is present, code status is documented, or surrogate decision maker is listed in patient medical record.: Yes Medication Reconciliation I have utilized all available resources to obtain, update and review the patients current medications (includes all prescriptions, OTC, herbals, cannabis, and nutritional supplements).: Yes The patient is not eligible for med reconciliation; the patient is in a emergent medical situation where delaying treatment would jeopardize the patients health.: No
--- NOTE | 2024-07-15 14:20 | PM.PNGS ---
Progress Note: A&P Assessment and Plan (1) Small bowel obstruction: Code(s): K56.609 - Unspecified intestinal obstruction, unspecified as to partial versus complete obstruction Status: Acute Assessment and Plan: Abdominal plain films this morning suggested a small bowel obstruction. Small bowel follow through ordered and was normal with no dilated small bowel and normal transit time to the colon. Will advance to a full liquid diet and resume oral medications. Continue TPN for now. Will add Ensure supplements as well. Encouraged getting up to the chair today, continue PT/OT. (2) Protein-calorie malnutrition, severe: Code(s): E43 - Unspecified severe protein-calorie malnutrition Status: Acute Assessment and Plan: Continue TPN for now. (3) Altered mental status: Code(s): R41.82 - Altered mental status, unspecified Status: Acute Assessment and Plan: Continues to improve. (4) Chronic alcohol use: Code(s): F10.90 - Alcohol use, unspecified, uncomplicated Status: Chronic Plan I have discussed the patient's case and plan of care with Dr. Shipman. Subjective Subjective Date/Time Seen: 07/15/24 14:20 Patient reports: no new complaints, flatus, bowel movement and afebrile Interval history: Patient without new complaints. He had a SBFT this morning and when he returned therapy had come by to see him, but he refused. So he has not been up today. He denies any abdominal pain or nausea. He has had 2 bowel movements in the bed since the contrast study. He has not had much of an appetite, but is eager to resume his diet. Exam Const: General: no acute distress and alert Orientation/consciousness: patient oriented x3 GI: Inspection: non-distended and incision (wound vac dressing dry and intact, functioning well) GI Palp: Yes Soft to palpation, No Tenderness to palpation present (GI) and No Guarding due to palpation present (GI) Auscultation: normal bowel sounds Urinary Catheter: Urinary Catheter: patent and draining and urine clear Extrem: General: no calf tenderness Right upper extremity: edema (diffuse edema of lower arm and hand (negative venous doppler)) and Extremity exam: right hand normal capillary refill, vascular exam radial pulse present, normal ROM of fingers and swelling; no tenderness Objective Data Vital Signs Vital Signs: Vital Signs - 24 hr 07/14/24 16:00 07/14/24 16:00 07/14/24 20:00 Temperature 98.4 F 99.4 F Pulse Rate 97 99 101 H Respiratory Rate 14 16 Blood Pressure 148/78 H 145/79 H Pulse Oximetry 95 95 Oxygen Delivery 07/14/24 20:00 07/14/24 20:00 07/15/24 00:00 Temperature 99.4 F Pulse Rate 103 H 104 H Respiratory Rate 16 Blood Pressure 152/85 H Pulse Oximetry 99 Oxygen Delivery Room Air 07/15/24 00:00 07/15/24 04:00 07/15/24 06:00 Temperature 98.0 F Pulse Rate 101 H 90 Respiratory Rate Blood Pressure 151/82 H Pulse Oximetry Oxygen Delivery 07/15/24 08:00 07/15/24 08:15 07/15/24 12:00 Temperature 98.2 F Pulse Rate 92 97 Respiratory Rate 16 Blood Pressure 151/82 H Pulse Oximetry 95 Oxygen Delivery Room Air 07/15/24 12:00 Temperature Pulse Rate 97 Respiratory Rate Blood Pressure Pulse Oximetry Oxygen Delivery Intake/Output Intake/Output: Intake & Output 07/12/24 07/13/24 07/14/24 07/15/24 23:59 23:59 23:59 23:59 Intake Total 3360.5 2552.5 1760.7 1302.5 Output Total 1350 1400 1200 500 Balance 2010.5 1152.5 560.7 802.5 Meds/Results Medications: Active Medications Generic Name Dose Route Start Last Admin Trade Name Freq PRN Reason Stop Dose Admin Alteplase, Recombinant 2 mg 07/11/24 05:49 07/13/24 06:09 Alteplase 2 Mg Vial (Cathflo) IV PUSH 2 mg ONCE PRN Administration Line Occlusion Dextrose 12.5 gm 07/02/24 13:59 Dextrose 50% 25 Gm/50 Ml Syringe IV PUSH PRN PRN Hypoglycemia Protocol Enoxaparin Sodium 40 mg 06/29/24 09:00 07/15/24 11:33 Enoxaparin 40 Mg/0.4 Ml Syringe SUB-Q 40 mg DAILY VANDANA Administration Glucagon 1 mg 07/02/24 13:59 Glucagon For Inj 1 Mg Vial IM PRN PRN Hypoglycemia Protocol Glucose 15 gm 07/02/24 13:59 Glucose Oral Gel 15 Gm Of Glucse In 37.5 Gm Tube PO PRN PRN Hypoglycemia Protocol Hydralazine HCl 20 mg 07/02/24 10:27 07/14/24 05:17 Hydralazine Hcl 20 Mg/Ml Vial IV PUSH 20 mg Q6H PRN Administration Hypertension Dextrose 1,000 mls @ 100 mls/hr 07/02/24 13:59 Dextrose 5% 1,000 Ml IVPB PRN PRN Hypoglycemia Protocol Ibuprofen 800 mg in 200 mls @ 400 mls/hr 07/06/24 18:50 07/13/24 22:55 Caldolor 800 Mg/200 Ml IVPB Infused Q6H PRN Infusion Breakthrough Pain Rated 1-3 or NPO Dextrose 1,000 mls @ 50 mls/hr 07/13/24 08:07 Dextrose 10% IV CONT .Q20H PRN if PN is interrupted Multivitamins 1.25 ml/ 1,002.5 mls @ 70 mls/hr 07/13/24 09:30 07/15/24 04:49 Multivitamins 1.25 ml/ Amino IV CONT 70 mls/hr Acids/Electrolytes/Dextrose .[id number] [facility]NA Administration Protocol Fat Emulsion Intravenous 250 mls @ 20.833 mls/hr 07/13/24 09:30 07/15/24 11:39 Lipids 20% IVPB 20.83 mls/hr Q24H VANDANA Administration Cefepime HCl 2 gm in 50 mls @ 100 mls/hr 07/13/24 09:00 07/15/24 12:03 Maxipime 2 Gm/Ns 50 Ml IVPB 07/16/24 23:59 Infused Q8H VANDANA Infusion Metronidazole 500 mg in 100 mls @ 100 mls/hr 07/13/24 14:00 07/15/24 13:40 Flagyl 500 Mg/Iso Soln 100 Ml IVPB 07/16/24 23:59 100 mls/hr Q8HR VANDANA Administration Lorazepam 2 mg 07/07/24 16:01 07/09/24 22:02 Lorazepam Inj (*Crx) 2 Mg/Ml Vial IV PUSH 2 mg Q4H PRN Administration CIWA 8-15 Metoprolol Tartrate 5 mg 07/02/24 08:51 07/11/24 10:35 Metoprolol Tartrate Inj 5 Mg/5 Ml Vial IV PUSH 5 mg Q4H PRN Administration Tachycardia Naloxone HCl 0.1 mg 07/06/24 18:50 Naloxone Hcl 0.4 Mg/Ml Vial IV PUSH Q2M PRN Opiate Reversal Ondansetron HCl 4 mg 06/27/24 08:21 07/12/24 10:06 Ondansetron Inj 4 Mg/2 Ml Vial IV PUSH 4 mg Q4H PRN Administration Nausea Pantoprazole Sodium 40 mg 07/15/24 09:00 07/15/24 11:32 Pantoprazole Sodium Iv 40 Mg Vial IV PUSH 40 mg QAM VANDANA Administration Potassium Chloride 40 meq 07/11/24 11:50 07/14/24 17:38 Potassium Chloride 20 Meq Packet (For Liquid) PO 40 meq BID VANDANA Administration Sodium Bicarbonate 650 mg 07/10/24 17:00 07/15/24 08:22 Sodium Bicarbonate Tab 650 Mg Tablet PO Not Given BID VANDANA Sodium Chloride 10 ml 07/02/24 22:00 07/15/24 13:40 Central Line Flush IV PUSH 10 ml Q8HR VANDANA Administration Sodium Chloride 10 ml 07/02/24 15:38 07/04/24 14:13 Central Line Flush IV PUSH 10 ml PRN PRN Administration with TPN bag changes Sodium Chloride 20 ml 07/02/24 15:38 Central Line Flush IV PUSH PRN PRN after blood draws Thiamine HCl 100 mg 06/27/24 09:00 07/15/24 11:32 Thiamine Hcl 200 Mg/2 Ml Vial IV PUSH 100 mg DAILY VANDANA Administration Radiology Results: ITS Impressions Chest/Abdomen/Pelvis CTA 06/27/24 06:17 IMPRESSION: CHEST: 1. No pulmonary embolism. No aortic dissection 2. No acute cardiopulmonary pathology. ABDOMEN/PELVIS: 1. Small bowel obstruction with the transition zone in the terminal ileum area. Clinical correlation advised. 2. No evidence of appendicitis, or diverticulitis. Head CT 06/27/24 06:59 IMPRESSION: No acute intracranial findings. Cervical Spine CT 06/27/24 07:58 IMPRESSION: No acute osseous abnormality cervical spine. Multilevel degenerative disc disease. NG Tube Placement 07/02/24 07:18 IMPRESSION: Fluoroscopy used during NG tube placement in the stomach. Abdomen/Pelvis CT 07/07/24 05:20 Impression: Small amount of pneumoperitoneum, likely postoperative with evidence of recent midline incision stapling since prior exam. Correlate with surgical history. Bowel distention/bowel obstruction is essentially resolved as compared to prior exam. Small bowel evaluation is limited on the current exam due to extensive matting together of bowel loops. Small amount of ascites. Small pleural effusions with bibasilar pulmonary edema/atelectasis versus pneumonia. Correlate clinically. Chest X-Ray 07/08/24 13:34 Impression: 1: Developing patchy bilateral airspace disease, compatible with pneumonia. Venous Doppler Study 07/09/24 00:02 IMPRESSION: Negative right upper extremity venous US. No deep vein thrombosis. Upper GI Series 07/09/24 13:13 IMPRESSION: 1. No bowel obstruction or ileus with normal small bowel transit time and normal caliber and mucosal fold pattern to the small bowel. Abdomen X-Ray 07/15/24 06:41 Impression: Small bowel obstruction. Small Bowel X-Ray 07/15/24 12:57 IMPRESSION: 1. Normal small bowel follow-through. Labs Labs: Laboratory Results - last 24 hr 07/15/24 07/15/24 07/15/24 00:31 06:12 06:45 WBC 8.8 RBC 2.84 L Hgb 8.7 L Hct 26.6 L MCV 93.7 MCH 30.6 MCHC 32.7 RDW 13.7 Plt Count 401 H MPV 10.5 H Immature Gran % (Auto) 1.7 H Neut % (Auto) 69.8 Lymph % (Auto) 16.2 L [place] % (Auto) 9.9 H Eos % (Auto) 1.8 Baso % (Auto) 0.6 Lymph # (Auto) 1.43 [place] # (Auto) 0.9 H Eos # (Auto) 0.2 Baso # (Auto) 0.1 Abs Immat Gran (auto) 0.15 H Absolute Neuts (auto) 6.2 Absolute Nucleated RBC 0.000 Nucleated RBC % 0.0 Sodium 133 L Potassium 3.1 L Chloride 105 Carbon Dioxide 22 Anion Gap 6 BUN 15 Creatinine 0.64 L Estim Creat Clear Calc 94 Estimated GFR > 60 Glucose 109 POC Capillary Glucose 115 H 113 H Calcium 7.5 L Phosphorus 3.1 Magnesium 2.0 Total Bilirubin 0.3 AST 27 ALT 14 Alkaline Phosphatase 84 Total Protein 5.0 L Albumin 2.2 L 07/15/24 11:36 WBC RBC Hgb Hct MCV MCH MCHC RDW Plt Count MPV Immature Gran % (Auto) Neut % (Auto) Lymph % (Auto) [place] % (Auto) Eos % (Auto) Baso % (Auto) Lymph # (Auto) [place] # (Auto) Eos # (Auto) Baso # (Auto) Abs Immat Gran (auto) Absolute Neuts (auto) Absolute Nucleated RBC Nucleated RBC % Sodium Potassium Chloride Carbon Dioxide Anion Gap BUN Creatinine Estim Creat Clear Calc Estimated GFR Glucose POC Capillary Glucose 112 H Calcium Phosphorus Magnesium Total Bilirubin AST ALT Alkaline Phosphatase Total Protein Albumin
[2024-07-15] MEDS: POTASSIUM CHLORIDE 20 MEQ PACKET (FOR LIQUID) 40 MEQ PO (16:45)
[2024-07-15] MEDS: SODIUM BICARBONATE TAB 650 MG TABLET PO (16:45)
[2024-07-15 19:11] LABS: Glucose Point of Care 121 mg/dl (65-105)
[2024-07-15] MEDS: metroNIDAZOLE 500 MG TABLET PO (20:22)
[2024-07-16] VITALS (12 sets, daily range): BP systolic 138–148; BP diastolic 70–85; PULSE 66–104; RESP 16–20; TEMP 36–37.1; O2SAT 94–97
[2024-07-16] MEDS: CEFEPIME 2 GM/NS 50 ML 2 GM/50 ML BAG IVPB (00:22)
[2024-07-16 00:24] LABS: Glucose Point of Care 119 mg/dl (65-105)
[2024-07-16] MEDS: metroNIDAZOLE 500 MG TABLET PO (05:07)
[2024-07-16 05:30] LABS: Hematocrit 27.1 % (42.0-52.0); Hemoglobin 8.7 g/dL (14.0-18.0); Mean Corpuscular HGB Conc 32.1 g/dl (32-36); Mean Corpuscular Hemoglobin 30.9 pg (26-34); Mean Corpuscular Volume 96.1 fl (80-100); Mean Platelet Volume 10.2 fl (7.4-10.4); Platelet Count Result 417 k/mm3 (150-375); Red Blood Count 2.82 M/mm3 (4.6-6.20); Red Cell Distribution Width 13.8 % (11.5-14.5); White Blood Count 10.2 K/mm3 (4.5-10.0)
[2024-07-16 05:38] LABS: Anion Gap 1 mmol/L (4-12); Blood Urea Nitrogen 14 mg/dL (9-20); Calcium 7.5 mg/dL (8.4-10.2); Carbon Dioxide 26 mmol/L (22-30); Chloride 106 mmol/L (98-107); Estimated CRCL calculation 90 ml/min; Estimated Glomerular Filt Rate > 60; Glucose 98 mg/dL (65-110); Phosphorus 3.1 mg/dL (2.5-4.5); Potassium 3.3 mmol/L (3.4-5.0); Sodium 133 mmol/L (137-145); Triglycerides 165 mg/dL (<150)
[2024-07-16] MEDS: CENTRAL LINE FLUSH 10 ML IV PUSH ×3 (07:00→22:02)
--- NOTE | 2024-07-16 07:37 | P.PNIM_ITS ---
Progress Note: A&P Assessment and Plan (1) Small bowel obstruction: Code(s): K56.609 - Unspecified intestinal obstruction, unspecified as to partial versus complete obstruction Status: Acute Assessment and Plan: Patient admitted after complaints of ABD pain with N/V. CT chest abdomen pelvis CTA was performed which showed no PE no aortic dissection. Abdomen pelvis showed small-bowel obstruction with the transition zone in the terminal ileum area. No evidence of appendicitis or diverticulitis. General surgery was consulted and patient was taken for exploratory laparotomy 06/29/2024 for repair serosal tears x2. IV fluids switched to Dextrose 5/water NA up to 149 and BS 68. Patient had pulled out his NG tube which was replaced under fluoroscopy, mild distention noted reporting having flatulence and bowel movement reported overnight, Tolerating TPN . Continue to encourage patient to get up and perform activity ordered PT/OT. reported he appeared more lethargic yesterday afternoon pain medication adjusted by surgery less lethargic today small bowel series showed persistent ileus versus small-bowel obstruction with contrast not having reach the distal most dilated loops . Patient was post-op day 7 and KUB which continued to show postoperative SBO. He had a repeat CT scan on 07/06/2024 which shown findings compatible with small bowel obstruction with transition point in the mid small bowel, small amount of ascites with mesenteric edema, small right pleural effusion with patchy bibasilar pulmonary consolidation. He was then taken to the OR on 07/06/[address] Shipman 4 lysis of adhesion with resection of the jejunal perforation with anastomosis. With wound vac placed. He had a small bowel series 07/15/2024 showed normal follow through. Patient passing gas and having BM's. Attempt to advance diet as tolerated, wean off TPN * Diet advanced to soft diet * pain control * ambulate as tolerated * Antiemetics * Incentive spirometer * PT/OT * Continue serial KUB * Continue wound vac evaluated by surgery (2) Hypertension: Code(s): I10 - Essential (primary) hypertension Status: Acute Assessment and Plan: patient has been hypertensive systolics running between 180s to 160s. patient does not take any hypertensive medications at home will re-evaluate prior to discharge if patient will need oral antihypertensive medications at discharge after current acute issues are resolved. Transition to oral medications now that he is tolerating diet * I added hydralazine 20 mg IV push as needed for systolics greater than 160 * episodes of tachycardia surgery added metoprolol IV push PRN * BP per unit protocol (3) Hypokalemia: Code(s): E87.6 - Hypokalemia Status: Acute Assessment and Plan: * Potassium 3.3 * Supplement * Keep K+ >4.0 (4) Chronic alcohol use: Code(s): F10.90 - Alcohol use, unspecified, uncomplicated Status: Chronic Assessment and Plan: Does not appear in withdrawal at this time will continue to monitor * Last drink / * Thiamine, folic acid, and multi-vitamin * PPI daily * librium PRN * CIWA daily * Monitor and replenish electrolytes as needed (5) ORTEGA (acute kidney injury): Code(s): N17.9 - Acute kidney failure, unspecified Status: Resolved Assessment and Plan: * Acute kidney injury CR 1.98 POA since resolved with IV fluids (6) Hyponatremia: Code(s): E87.1 - Hypo-osmolality and hyponatremia Status: Resolved Assessment and Plan: * Resolved likely secondary to dehydration and ETOH abuse patient was initially 130 POA resolved with IV fluids (7) Hypernatremia: Code(s): E87.0 - Hyperosmolality and hypernatremia Status: Resolved Assessment and Plan: * Patient now with hypernatremia at 149 discussed with surgery we will switch his IV fluids to dextrose 5 and water follow-up BMP later on today Plan Code status: Full code per patient DVT prophylaxis: Lovenox Stress ulcer prophylaxis: Protonix 40 daily PT/OT notes: Ambulatory Disposition: Patient continues admission to the medical unit for further treatment small-bowel obstruction wound vac in place advancing diet to soft CC consulted to assist in rehab placement. Time Spent With Patient Time: Subjective Date/time seen: 07/16/24 07:37 Interval history: This is a 64-year-old male who presented to the ED with few days history of nausea vomiting and abdominal pain. He also reports not having bowel movement for past few days. Was found to has small-bowel obstruction underwent exploratory laparotomy in it colitis with repair of serosal tears 06/30/2024. He had a repeat CT scan on 07/06/2024 which shown findings compatible with small bowel obstruction with transition point in the mid small bowel, small amount of ascites with mesenteric edema, small right pleural effusion with patchy bibasilar pulmonary consolidation. He was then taken to the OR on 07/06/[address] Shipman 4 lysis of adhesion with resection of the jejunal perforation with anastomosis. 07/16/2024: Pt examined sitting comfortably in bed at time of examination. At this time, he denies any chest pain, SOB, n/v, or abdominal pain. Wound vac site appears to be clean with no erythema or drainage. Still on TPN at time of exam but plan is to discontinue TPN and advance to liquid diet with tentative advancement to full solid diet within the next day or 2. He is tentatively accepted to [facility] with contingency that he no longer needs TPN. [facility] able to handle wound vac care. Will continue with TPN and ensure supplementation and will continue working with PT/OT. Review of Systems Review of Systems: - CONSTITUTIONAL: Denies weight loss, fe gorge and chills. - HEENT: Denies changes in vision and he aring - RESPIRATORY: Denies SOB and cough. - CV: Denies palpitations and CP. - GI: Reports abdominal pain, nausea, v omiting and denies diarrhea. - : Denies dysuria and urinary frequen cy. - MSK: Denies myalgia and joint pain. - SKIN: Denies rash and pruritus. - NEUROLOGICAL: Denies headache and sync ope. - PSYCHIATRIC: Denies recent changes in mood. Denies anxiety and depression. All systems reviewed & are unremarkable except as noted in HPI and below Exam Narrative: General: In no acute distress Head: atraumatic, encephalopathy and confused today Cardiac: Normal S1 and S2. Normal sinus rhythm 80s to 90s, No murmur, gallops or friction rubs, peripheral pulses intact. Respiratory: Lungs clear to auscultation, no adventitious lung sounds, currently on room air Gastrointestinal: taunt, mildly distended, non-tender, hypoactive bowel sounds. Having BMs : Eller catheter in place draining clear yellow urine Skin: Midline incision with wound vac in place SS drainage noted in container Neuro: Alert and oriented x3 Const: General: comfortable and no acute distress HENMT: Mouth: Yes moist mucous membranes Eyes: General: appearance normal, both eyes and all related structures Pupils: Equal, round and reactive pupils present Neck: Neck: supple and no JVD Resp: Effort & Inspection: normal respiratory effort Auscultation: clear to auscultation bilaterally Cardio: Rate: regular rate Rhythm: regular rhythm GI: Auscultation: abnormal bowel sounds (hypoactive) Other: Midline incision with wound vac in place Skin: General skin exam: normal color Neuro: General: gait normal Cranial nerves: Yes Equal, round and reactive pupils present Speech: normal speech Extrem: General: normal to inspection Psych: Mental Status: mental status grossly normal Affect: normal affect Objective Data Vital Signs Vital Signs: Vital Signs - 24 hr 07/15/24 08:00 07/15/24 08:15 07/15/24 12:00 Temperature 98.2 F Pulse Rate 92 97 Respiratory Rate 16 Blood Pressure 151/82 H Pulse Oximetry 95 Oxygen Delivery Room Air 07/15/24 12:00 07/15/24 16:00 07/15/24 20:00 Temperature 98.7 F Pulse Rate 97 110 H 100 Respiratory Rate 20 Blood Pressure 143/91 H Pulse Oximetry 95 Oxygen Delivery 07/15/24 20:00 07/15/24 20:00 07/16/24 00:00 Temperature 98.5 F Pulse Rate 101 H 101 H Respiratory Rate 18 Blood Pressure 144/73 H Pulse Oximetry 94 Oxygen Delivery Room Air 07/16/24 00:00 07/16/24 04:00 07/16/24 04:00 Temperature 98.3 F Pulse Rate 104 H 93 89 Respiratory Rate 20 Blood Pressure 143/84 H Pulse Oximetry 96 Oxygen Delivery Intake/Output Intake/Output: Intake & Output 07/13/24 07/14/24 07/15/24 07/16/24 23:59 23:59 23:59 23:59 Intake Total 2552.5 1760.7 2373.0 450 Output Total 1400 1200 1450 700 Balance 1152.5 560.7 923.0 -250 Meds/Results Medications: Active Medications Generic Name Dose Route Start Last Admin Trade Name Freq PRN Reason Stop Dose Admin Acetaminophen 650 mg 07/15/24 15:21 Acetaminophen 325 Mg Tablet PO Q6H PRN Mild Pain (1-3) or Fever Alteplase, Recombinant 2 mg 07/11/24 05:49 07/13/24 06:09 Alteplase 2 Mg Vial (Cathflo) IV PUSH 2 mg ONCE PRN Administration Line Occlusion Dextrose 12.5 gm 07/02/24 13:59 Dextrose 50% 25 Gm/50 Ml Syringe IV PUSH PRN PRN Hypoglycemia Protocol Enoxaparin Sodium 40 mg 06/29/24 09:00 07/15/24 11:33 Enoxaparin 40 Mg/0.4 Ml Syringe SUB-Q 40 mg DAILY VANDANA Administration Glucagon 1 mg 07/02/24 13:59 Glucagon For Inj 1 Mg Vial IM PRN PRN Hypoglycemia Protocol Glucose 15 gm 07/02/24 13:59 Glucose Oral Gel 15 Gm Of Glucse In 37.5 Gm Tube PO PRN PRN Hypoglycemia Protocol Hydralazine HCl 20 mg 07/02/24 10:27 07/14/24 05:17 Hydralazine Hcl 20 Mg/Ml Vial IV PUSH 20 mg Q6H PRN Administration Hypertension Dextrose 1,000 mls @ 100 mls/hr 07/02/24 13:59 Dextrose 5% 1,000 Ml IVPB PRN PRN Hypoglycemia Protocol Dextrose 1,000 mls @ 50 mls/hr 07/13/24 08:07 Dextrose 10% IV CONT .Q20H PRN if PN is interrupted Multivitamins 1.25 ml/ 1,002.5 mls @ 70 mls/hr 07/13/24 09:30 07/15/24 17:58 Multivitamins 1.25 ml/ Amino IV CONT 70 mls/hr Acids/Electrolytes/Dextrose .[id number] VANDANA Administration Protocol Fat Emulsion Intravenous 250 mls @ 20.833 mls/hr 07/13/24 09:30 07/15/24 11:39 Lipids 20% IVPB 20.83 mls/hr Q24H VANDANA Administration Metoprolol Succinate 25 mg 07/16/24 09:00 Metoprolol Succinate Ext Rel 25 Mg Tabcr PO QAM VANDANA Naloxone HCl 0.1 mg 07/06/24 18:50 Naloxone Hcl 0.4 Mg/Ml Vial IV PUSH Q2M PRN Opiate Reversal Ondansetron HCl 4 mg 06/27/24 08:21 07/12/24 10:06 Ondansetron Inj 4 Mg/2 Ml Vial IV PUSH 4 mg Q4H PRN Administration Nausea Pantoprazole Sodium 40 mg 07/16/24 09:00 Pantoprazole 40 Mg Tablet PO QAM [facility] Potassium Chloride 40 meq 07/11/24 11:50 07/15/24 16:45 Potassium Chloride 20 Meq Packet (For Liquid) PO 40 meq BID VANDANA Administration Sodium Bicarbonate 650 mg 07/10/24 17:00 07/15/24 16:45 Sodium Bicarbonate Tab 650 Mg Tablet PO 650 mg BID VANDANA Administration Sodium Chloride 10 ml 07/02/24 22:00 07/16/24 07:00 Central Line Flush IV PUSH 10 ml Q8HR VANDANA Administration Sodium Chloride 10 ml 07/02/24 15:38 07/04/24 14:13 Central Line Flush IV PUSH 10 ml PRN PRN Administration with TPN bag changes Sodium Chloride 20 ml 07/02/24 15:38 Central Line Flush IV PUSH PRN PRN after blood draws Thiamine HCl 100 mg 07/16/24 09:00 Thiamine Hcl 100 Mg Tablet PO QAM [facility] Radiology Results: ITS Impressions Chest/Abdomen/Pelvis CTA 06/27/24 06:17 IMPRESSION: CHEST: 1. No pulmonary embolism. No aortic dissection 2. No acute cardiopulmonary pathology. ABDOMEN/PELVIS: 1. Small bowel obstruction with the transition zone in the terminal ileum area. Clinical correlation advised. 2. No evidence of appendicitis, or diverticulitis. Head CT 06/27/24 06:59 IMPRESSION: No acute intracranial findings. Cervical Spine CT 06/27/24 07:58 IMPRESSION: No acute osseous abnormality cervical spine. Multilevel degenerative disc disease. NG Tube Placement 07/02/24 07:18 IMPRESSION: Fluoroscopy used during NG tube placement in the stomach. Abdomen/Pelvis CT 07/07/24 05:20 Impression: Small amount of pneumoperitoneum, likely postoperative with evidence of recent midline incision stapling since prior exam. Correlate with surgical history. Bowel distention/bowel obstruction is essentially resolved as compared to prior exam. Small bowel evaluation is limited on the current exam due to extensive matting together of bowel loops. Small amount of ascites. Small pleural effusions with bibasilar pulmonary edema/atelectasis versus pneumonia. Correlate clinically. Chest X-Ray 07/08/24 13:34 Impression: 1: Developing patchy bilateral airspace disease, compatible with pneumonia. Venous Doppler Study 07/09/24 00:02 IMPRESSION: Negative right upper extremity venous US. No deep vein thrombosis. Upper GI Series 07/09/24 13:13 IMPRESSION: 1. No bowel obstruction or ileus with normal small bowel transit time and normal caliber and mucosal fold pattern to the small bowel. Abdomen X-Ray 07/15/24 06:41 Impression: Small bowel obstruction. Small Bowel X-Ray 07/15/24 12:57 IMPRESSION: 1. Normal small bowel follow-through. Labs Labs: Laboratory Results - last 24 hr 07/15/24 07/15/24 07/16/24 11:36 19:08 00:21 WBC RBC Hgb Hct MCV MCH MCHC RDW Plt Count MPV Sodium Potassium Chloride Carbon Dioxide Anion Gap BUN Creatinine Estim Creat Clear Calc Estimated GFR Glucose POC Capillary Glucose 112 H 121 H 119 H Calcium Phosphorus Triglycerides 07/16/24 05:24 WBC 10.2 H RBC 2.82 L Hgb 8.7 L Hct 27.1 L MCV 96.1 MCH 30.9 MCHC 32.1 RDW 13.8 Plt Count 417 H MPV 10.2 Sodium 133 L Potassium 3.3 L Chloride 106 Carbon Dioxide 26 Anion Gap 1 L BUN 14 Creatinine 0.67 L Estim Creat Clear Calc 90 Estimated GFR > 60 Glucose 98 POC Capillary Glucose Calcium 7.5 L Phosphorus 3.1 Triglycerides 165 H Quality VTE Prophylaxis VTE prophylaxis: pharmacologic ordered
[2024-07-16] MEDS: FAT EMULSIONS IV 20% 250 ML 20.83 ML IVPB (09:30)
[2024-07-16] MEDS: THIAMINE HCL 100 MG TABLET PO (09:40)
[2024-07-16] MEDS: POTASSIUM CHLORIDE 20 MEQ PACKET (FOR LIQUID) 40 MEQ PO ×2 (09:40→16:36)
[2024-07-16] MEDS: SODIUM BICARBONATE TAB 650 MG TABLET PO ×2 (09:40→16:36)
[2024-07-16] MEDS: METOPROLOL SUCCINATE EXT REL 25 MG TABCR PO (09:41)
[2024-07-16] MEDS: PANTOPRAZOLE 40 MG TABLET PO (09:41)
[2024-07-16] MEDS: ENOXAPARIN 40 MG/0.4 ML SYRINGE SUB-Q (09:41)
[2024-07-16] MEDS: AMINO ACIDS 5%/D15W/E-LYTES/CA 1,000 ML with MULTIVITAMINS-12 INJ VIAL 1 1.25 ML, MULTI... 70 ML IV CONT (09:42)
[2024-07-16 11:41] LABS: Glucose Point of Care 128 mg/dl (65-105)
--- NOTE | 2024-07-16 12:48 | PCNFU ---
Nutrition Follow-Up Complete: Inadequate energy intake related to small bowel obstruction as evidenced by NPO day 5 Meet estimated nutrition needs - MEeting needs with TPN PO intake when medically able - Advanced but appetite remains poor Goal: Pt current nutrition is TPN Clinmix E 08/05 with lipids @ 70 ml/h. Nutrition recommendation: Discontinue TPN when diet is advanced to solids. Last recorded weight is 83.5 kg. Bowel Motility: +3 BMs 07/15/24 Labs Reviewed: Hgb 8.7, Hct 27.1, Alb 2.2, Na 133, K+ 3.3, Cre 0.67 Meds Noted: Protonix, thiamine, lovenox, Skin: Wound vac to abdomen Additional Notes: Discussed with patient and family member that TPN will be continued until he eats solids. Pt says he does not have an appetite. Does not like the foods on full liquid diet. He will try to eat. Reminded him he will not be able to discharge until TPN is discontinued. Agree with current orders Monitoring orders, TPN tolerance, labs, weights, meds, output, plan of care Follow up Friday/Friday
[2024-07-16 18:44] LABS: Glucose Point of Care 114 mg/dl (65-105)
[2024-07-17] VITALS (11 sets, daily range): BP systolic 144–158; BP diastolic 78–90; PULSE 77–95; RESP 12–18; TEMP 36.2–36.8; O2SAT 96–100
[2024-07-17 00:11] LABS: Glucose Point of Care 111 mg/dl (65-105)
[2024-07-17] MEDS: AMINO ACIDS 5%/D15W/E-LYTES/CA 1,000 ML with MULTIVITAMINS-12 INJ VIAL 1 1.25 ML, MULTI... 70 ML IV CONT ×2 (00:18→17:26)
[2024-07-17 06:02] LABS: Glucose Point of Care 114 mg/dl (65-105)
[2024-07-17] MEDS: CENTRAL LINE FLUSH 10 ML IV PUSH ×3 (06:45→22:00)
--- NOTE | 2024-07-17 06:59 | PC.NURSE ---
Was not able to draw labs this morning. Could not get any blood return from either 2 midline ports. Expanding Machine Operator called to draw labs.
--- NOTE | 2024-07-17 07:10 | P.PNIM_ITS ---
Progress Note: A&P Assessment and Plan (1) Small bowel obstruction: Code(s): K56.609 - Unspecified intestinal obstruction, unspecified as to partial versus complete obstruction Status: Acute Assessment and Plan: Patient admitted after complaints of ABD pain with N/V. CT chest abdomen pelvis CTA was performed which showed no PE no aortic dissection. Abdomen pelvis showed small-bowel obstruction with the transition zone in the terminal ileum area. No evidence of appendicitis or diverticulitis. General surgery was consulted and patient was taken for exploratory laparotomy 06/29/2024 for repair serosal tears x2. IV fluids switched to Dextrose 5/water NA up to 149 and BS 68. Patient had pulled out his NG tube which was replaced under fluoroscopy, mild distention noted reporting having flatulence and bowel movement reported overnight, Tolerating TPN . Continue to encourage patient to get up and perform activity ordered PT/OT. reported he appeared more lethargic yesterday afternoon pain medication adjusted by surgery less lethargic today small bowel series showed persistent ileus versus small-bowel obstruction with contrast not having reach the distal most dilated loops . Patient was post-op day 7 and KUB which continued to show postoperative SBO. He had a repeat CT scan on 07/06/2024 which shown findings compatible with small bowel obstruction with transition point in the mid small bowel, small amount of ascites with mesenteric edema, small right pleural effusion with patchy bibasilar pulmonary consolidation. He was then taken to the OR on 07/06/[address] Shipman 4 lysis of adhesion with resection of the jejunal perforation with anastomosis. With wound vac placed. He had a small bowel series 07/15/2024 showed normal follow through. Patient passing gas and having BM's. Attempt to advance diet as tolerated, wean off TPN * Diet advanced to soft diet * pain control * ambulate as tolerated * Antiemetics * Incentive spirometer * PT/OT * Continue serial KUB * Continue wound vac evaluated by surgery (2) Hypertension: Code(s): I10 - Essential (primary) hypertension Status: Acute Assessment and Plan: patient has been hypertensive systolics running between 180s to 160s. patient does not take any hypertensive medications at home will re-evaluate prior to discharge if patient will need oral antihypertensive medications at discharge after current acute issues are resolved. Transition to oral medications now that he is tolerating diet * I added hydralazine 20 mg IV push as needed for systolics greater than 160 * episodes of tachycardia surgery added metoprolol IV push PRN * BP per unit protocol (3) Hypokalemia: Code(s): E87.6 - Hypokalemia Status: Acute Assessment and Plan: * Potassium 3.3 * Supplement * Keep K+ >4.0 (4) Chronic alcohol use: Code(s): F10.90 - Alcohol use, unspecified, uncomplicated Status: Chronic Assessment and Plan: Does not appear in withdrawal at this time will continue to monitor * Last drink / * Thiamine, folic acid, and multi-vitamin * PPI daily * librium PRN * CIWA daily * Monitor and replenish electrolytes as needed (5) ORTEGA (acute kidney injury): Code(s): N17.9 - Acute kidney failure, unspecified Status: Resolved Assessment and Plan: * Acute kidney injury CR 1.98 POA since resolved with IV fluids (6) Hyponatremia: Code(s): E87.1 - Hypo-osmolality and hyponatremia Status: Resolved Assessment and Plan: * Resolved likely secondary to dehydration and ETOH abuse patient was initially 130 POA resolved with IV fluids (7) Hypernatremia: Code(s): E87.0 - Hyperosmolality and hypernatremia Status: Resolved Assessment and Plan: * Patient now with hypernatremia at 149 discussed with surgery we will switch his IV fluids to dextrose 5 and water follow-up BMP later on today Plan Code status: Full code per patient DVT prophylaxis: Lovenox Stress ulcer prophylaxis: Protonix 40 daily PT/OT notes: Ambulatory Disposition: Patient continues admission to the medical unit for further treatment small-bowel obstruction wound vac in place advancing diet to soft CC consulted to assist in rehab placement. Subjective Date/time seen: 07/17/24 07:10 Interval history: This is a 64-year-old male who presented to the ED with few days history of nausea vomiting and abdominal pain. He also reports not having bowel movement for past few days. Was found to has small-bowel obstruction underwent exploratory laparotomy in it colitis with repair of serosal tears 06/30/2024. He had a repeat CT scan on 07/06/2024 which shown findings compatible with small bowel obstruction with transition point in the mid small bowel, small amount of ascites with mesenteric edema, small right pleural effusion with patchy bibasilar pulmonary consolidation. He was then taken to the OR on 07/06/[address] Umberto Betancur lysis of adhesion with resection of the jejunal perforation with anastomosis. 07/17/2024: Pt examined sitting comfortably in bed at time of examination. At this time, he denies any chest pain, SOB, n/v, or abdominal pain. Wound vac site appears to be clean with no erythema or drainage. Continue TPN and low fiber diet. Review of Systems Review of Systems: - CONSTITUTIONAL: Denies weight loss, fe gorge and chills. - HEENT: Denies changes in vision and he aring - RESPIRATORY: Denies SOB and cough. - CV: Denies palpitations and CP. - GI: Reports abdominal pain, nausea, v omiting and denies diarrhea. - : Denies dysuria and urinary frequen cy. - MSK: Denies myalgia and joint pain. - SKIN: Denies rash and pruritus. - NEUROLOGICAL: Denies headache and sync ope. - PSYCHIATRIC: Denies recent changes in mood. Denies anxiety and depression. All systems reviewed & are unremarkable except as noted in HPI and below Exam Narrative: General: In no acute distress Head: atraumatic, encephalopathy and confused today Cardiac: Normal S1 and S2. Normal sinus rhythm 80s to 90s, No murmur, gallops or friction rubs, peripheral pulses intact. Respiratory: Lungs clear to auscultation, no adventitious lung sounds, currently on room air Gastrointestinal: taunt, mildly distended, non-tender, hypoactive bowel sounds. Having BMs : Eller catheter in place draining clear yellow urine Skin: Midline incision with wound vac in place SS drainage noted in container Neuro: Alert and oriented x3 Const: General: comfortable and no acute distress HENMT: Mouth: Yes moist mucous membranes Eyes: General: appearance normal, both eyes and all related structures Pupils: Equal, round and reactive pupils present Neck: Neck: supple and no JVD Resp: Effort & Inspection: normal respiratory effort Auscultation: clear to auscultation bilaterally Cardio: Rate: regular rate Rhythm: regular rhythm GI: Auscultation: abnormal bowel sounds (hypoactive) Other: Midline incision with wound vac in place Skin: General skin exam: normal color Neuro: General: gait normal Cranial nerves: Yes Equal, round and reactive pupils present Speech: normal speech Extrem: General: normal to inspection Psych: Mental Status: mental status grossly normal Affect: normal affect Objective Data Vital Signs Vital Signs: Vital Signs - 24 hr 07/16/24 07:55 07/16/24 08:00 07/16/24 08:00 Temperature 97.4 F L Pulse Rate 89 94 Respiratory Rate 16 Blood Pressure 139/81 Pulse Oximetry 96 Oxygen Delivery Room Air 07/16/24 09:41 07/16/24 11:34 07/16/24 12:00 Temperature 98.6 F Pulse Rate 66 94 93 Respiratory Rate 16 Blood Pressure 145/85 H Pulse Oximetry 97 Oxygen Delivery 07/16/24 16:00 07/16/24 16:32 07/16/24 20:00 Temperature 96.8 F L 98.7 F Pulse Rate 95 95 90 Respiratory Rate 17 16 Blood Pressure 138/70 148/83 H Pulse Oximetry 96 97 Oxygen Delivery 07/16/24 20:03 07/16/24 22:02 07/17/24 00:00 Temperature 98.2 F Pulse Rate 92 93 Respiratory Rate 14 Blood Pressure 144/84 H Pulse Oximetry 97 97 Oxygen Delivery Room Air 07/17/24 00:02 07/17/24 04:00 07/17/24 04:03 Temperature 98.3 F Pulse Rate 89 95 86 Respiratory Rate 16 Blood Pressure 146/81 H Pulse Oximetry 98 Oxygen Delivery Intake/Output Intake/Output: Intake & Output 07/14/24 07/15/24 07/16/24 07/17/24 23:59 23:59 23:59 23:59 Intake Total 1760.7 2623.0 2302.5 1152.5 Output Total 1200 1450 1550 740 Balance 560.7 1173.0 752.5 412.5 Meds/Results Medications: Active Medications Generic Name Dose Route Start Last Admin Trade Name Freq PRN Reason Stop Dose Admin Acetaminophen 650 mg 07/15/24 15:21 Acetaminophen 325 Mg Tablet PO Q6H PRN Mild Pain (1-3) or Fever Alteplase, Recombinant 2 mg 07/11/24 05:49 04/22/25 06:09 Alteplase 2 Mg Vial (Cathflo) IV PUSH 2 mg ONCE PRN Administration Line Occlusion Dextrose 12.5 gm 07/02/24 13:59 Dextrose 50% 25 Gm/50 Ml Syringe IV PUSH PRN PRN Hypoglycemia Protocol Enoxaparin Sodium 40 mg 06/29/24 09:00 07/16/24 09:41 Enoxaparin 40 Mg/0.4 Ml Syringe SUB-Q 40 mg DAILY VANDANA Administration Glucagon 1 mg 07/02/24 13:59 Glucagon For Inj 1 Mg Vial IM PRN PRN Hypoglycemia Protocol Glucose 15 gm 07/02/24 13:59 Glucose Oral Gel 15 Gm Of Glucse In 37.5 Gm Tube PO PRN PRN Hypoglycemia Protocol Hydralazine HCl 20 mg 07/02/24 10:27 07/14/24 05:17 Hydralazine Hcl 20 Mg/Ml Vial IV PUSH 20 mg Q6H PRN Administration Hypertension Dextrose 1,000 mls @ 100 mls/hr 07/02/24 13:59 Dextrose 5% 1,000 Ml IVPB PRN PRN Hypoglycemia Protocol Dextrose 1,000 mls @ 50 mls/hr 07/13/24 08:07 Dextrose 10% IV CONT .Q20H PRN if PN is interrupted Multivitamins 1.25 ml/ 1,002.5 mls @ 70 mls/hr 07/13/24 09:30 07/17/24 00:18 Multivitamins 1.25 ml/ Amino IV CONT 70 mls/hr Acids/Electrolytes/Dextrose .[id number] VANDANA Administration Protocol Fat Emulsion Intravenous 250 mls @ 20.833 mls/hr 07/13/24 09:30 07/16/24 21:31 Lipids 20% IVPB Infused Q24H VANDANA Infusion Metoprolol Succinate 25 mg 07/16/24 09:00 07/16/24 09:41 Metoprolol Succinate Ext Rel 25 Mg Tabcr PO 25 mg QAM VANDANA Administration Naloxone HCl 0.1 mg 07/06/24 18:50 Naloxone Hcl 0.4 Mg/Ml Vial IV PUSH Q2M PRN Opiate Reversal Ondansetron HCl 4 mg 06/27/24 08:21 07/12/24 10:06 Ondansetron Inj 4 Mg/2 Ml Vial IV PUSH 4 mg Q4H PRN Administration Nausea Pantoprazole Sodium 40 mg 07/16/24 09:00 07/16/24 09:41 Pantoprazole 40 Mg Tablet PO 40 mg QAM VANDANA Administration Potassium Chloride 40 meq 07/11/24 11:50 07/16/24 16:36 Potassium Chloride 20 Meq Packet (For Liquid) PO 40 meq BID VANDANA Administration Sodium Bicarbonate 650 mg 07/10/24 17:00 07/16/24 16:36 Sodium Bicarbonate Tab 650 Mg Tablet PO 650 mg BID VANDANA Administration Sodium Chloride 10 ml 07/02/24 22:00 07/17/24 06:45 Central Line Flush IV PUSH 10 ml Q8HR VANDANA Administration Sodium Chloride 10 ml 07/02/24 15:38 07/04/24 14:13 Central Line Flush IV PUSH 10 ml PRN PRN Administration with TPN bag changes Sodium Chloride 20 ml 07/02/24 15:38 Central Line Flush IV PUSH PRN PRN after blood draws Thiamine HCl 100 mg 07/16/24 09:00 07/16/24 09:40 Thiamine Hcl 100 Mg Tablet PO 100 mg QAM VANDANA Administration Radiology Results: ITS Impressions Chest/Abdomen/Pelvis CTA 06/27/24 06:17 IMPRESSION: CHEST: 1. No pulmonary embolism. No aortic dissection 2. No acute cardiopulmonary pathology. ABDOMEN/PELVIS: 1. Small bowel obstruction with the transition zone in the terminal ileum area. Clinical correlation advised. 2. No evidence of appendicitis, or diverticulitis. Head CT 06/27/24 06:59 IMPRESSION: No acute intracranial findings. Cervical Spine CT 06/27/24 07:58 IMPRESSION: No acute osseous abnormality cervical spine. Multilevel degenerative disc disease. NG Tube Placement 07/02/24 07:18 IMPRESSION: Fluoroscopy used during NG tube placement in the stomach. Abdomen/Pelvis CT 07/07/24 05:20 Impression: Small amount of pneumoperitoneum, likely postoperative with evidence of recent midline incision stapling since prior exam. Correlate with surgical history. Bowel distention/bowel obstruction is essentially resolved as compared to prior exam. Small bowel evaluation is limited on the current exam due to extensive matting together of bowel loops. Small amount of ascites. Small pleural effusions with bibasilar pulmonary edema/atelectasis versus pneumonia. Correlate clinically. Chest X-Ray 07/08/24 13:34 Impression: 1: Developing patchy bilateral airspace disease, compatible with pneumonia. Venous Doppler Study 07/09/24 00:02 IMPRESSION: Negative right upper extremity venous US. No deep vein thrombosis. Upper GI Series 07/09/24 13:13 IMPRESSION: 1. No bowel obstruction or ileus with normal small bowel transit time and normal caliber and mucosal fold pattern to the small bowel. Abdomen X-Ray 07/15/24 06:41 Impression: Small bowel obstruction. Small Bowel X-Ray 07/15/24 12:57 IMPRESSION: 1. Normal small bowel follow-through. Labs Labs: Laboratory Results - last 24 hr 07/16/24 07/16/24 07/17/24 11:37 18:41 00:07 POC Capillary Glucose 128 H 114 H 111 H 07/17/24 05:59 POC Capillary Glucose 114 H Quality VTE Prophylaxis VTE prophylaxis: pharmacologic ordered
[2024-07-17 07:44] LABS: Basophils Absolute Auto 0.1 K/mm3 (0.0-0.1); Basophils Percent Auto 0.8 % (0.2-1.2); Eosinophils Absolute Auto 0.3 K/mm3 (0-0.3); Eosinophils Percent Auto 2.4 % (0-4.4); Hematocrit 27.4 % (42.0-52.0); Hemoglobin 8.8 g/dL (14.0-18.0); Immature Granulocyte Absolute 0.13 K/mm3 (0.00-0.031); Immature Granulocyte Percent A 1.2 % (0-0.5); Lymphocytes Absolute Auto 1.56 K/mm3 (0.9-3.2); Lymphocytes Percent Auto 14.9 % (18.3-44.2); Mean Corpuscular HGB Conc 32.1 g/dl (32-36); Mean Corpuscular Hemoglobin 30.4 pg (26-34); Mean Corpuscular Volume 94.8 fl (80-100); Mean Platelet Volume 10.1 fl (7.4-10.4); Monocytes Absolute Auto 0.9 K/mm3 (0.1-0.6); Monocytes Percent Auto 8.8 % (2.6-8.5); Neutrophils Absolute Auto 7.6 K/mm3 (1.3-6.7); Neutrophils Percent Auto 71.9 % (45.5-73.1); Platelet Count Result 421 k/mm3 (150-375); Red Blood Count 2.89 M/mm3 (4.6-6.20); Red Cell Distribution Width 13.8 % (11.5-14.5); White Blood Count 10.5 K/mm3 (4.5-10.0)
[2024-07-17] MEDS: POTASSIUM CHLORIDE 20 MEQ PACKET (FOR LIQUID) 40 MEQ PO ×2 (07:51→17:25)
[2024-07-17] MEDS: ENOXAPARIN 40 MG/0.4 ML SYRINGE SUB-Q (07:52)
[2024-07-17] MEDS: THIAMINE HCL 100 MG TABLET PO (07:52)
[2024-07-17] MEDS: SODIUM BICARBONATE TAB 650 MG TABLET PO ×2 (07:52→17:26)
[2024-07-17] MEDS: PANTOPRAZOLE 40 MG TABLET PO (07:52)
[2024-07-17] MEDS: METOPROLOL SUCCINATE EXT REL 25 MG TABCR PO (07:52)
[2024-07-17 07:55] LABS: Alanine Aminotransferase 12 U/L (6-50); Albumin Level 2.2 g/dL (3.5-5.1); Alkaline Phosphatase 84 U/L (38-126); Anion Gap 1 mmol/L (4-12); Aspartate Amino Transferase 24 U/L (17-59); Bilirubin,Total 0.2 mg/dL (0.2-1.3); Blood Urea Nitrogen 12 mg/dL (9-20); Calcium 7.5 mg/dL (8.4-10.2); Carbon Dioxide 28 mmol/L (22-30); Chloride 103 mmol/L (98-107); Estimated CRCL calculation 93 ml/min; Estimated Glomerular Filt Rate > 60; Glucose 110 mg/dL (65-110); Potassium 3.6 mmol/L (3.4-5.0); Sodium 132 mmol/L (137-145)
[2024-07-17 07:59] LABS: Glucose Point of Care 113 mg/dl (65-105)
[2024-07-17] MEDS: FAT EMULSIONS IV 20% 250 ML 20.8 ML IVPB (09:30)
[2024-07-17 12:10] LABS: Glucose Point of Care 108 mg/dl (65-105)
--- NOTE | 2024-07-17 13:49 | P.PNGS_ITS ---
Progress Note: A&P Assessment and Plan (1) Small bowel obstruction: Code(s): K56.609 - Unspecified intestinal obstruction, unspecified as to partial versus complete obstruction Status: Acute Assessment and Plan: s/p SBR, michael diet, +bowel fxn, cont to encourage po intake, PT/OT, will need rehab (2) Protein-calorie malnutrition, severe: Code(s): E43 - Unspecified severe protein-calorie malnutrition Status: Acute Assessment and Plan: cont TPN for now Subjective Subjective Date/Time Seen: 07/17/24 13:49 Interval history: no acute issues, michael low fiber diet Review of Systems Review of Systems: All systems reviewed & are unremarkable except as noted in HPI and below Exam Const: General: cooperative, comfortable, no acute distress and ill appearing Resp: Auscultation: clear to auscultation bilaterally Cardio: Rate: regular rate Rhythm: regular rhythm GI: Inspection: normal to inspection, distended and incision GI Palp: Yes abdominal tenderness and Yes Soft to palpation Other: vac - C/D/I Objective Data Vital Signs Vital Signs: Vital Signs - 24 hr 07/16/24 16:00 07/16/24 16:32 07/16/24 20:00 Temperature 36.0 C L 37.1 C Pulse Rate 95 95 90 Respiratory Rate 17 16 Blood Pressure 138/70 148/83 H Pulse Oximetry 96 97 Oxygen Delivery Fraction of Inspired Oxygen 07/16/24 20:03 07/16/24 22:02 07/17/24 00:00 Temperature 36.8 C Pulse Rate 92 93 Respiratory Rate 14 Blood Pressure 144/84 H Pulse Oximetry 97 97 Oxygen Delivery Room Air Fraction of Inspired Oxygen 07/17/24 00:02 07/17/24 04:00 07/17/24 04:03 Temperature 36.8 C Pulse Rate 89 95 86 Respiratory Rate 16 Blood Pressure 146/81 H Pulse Oximetry 98 Oxygen Delivery Fraction of Inspired Oxygen 07/17/24 08:00 07/17/24 08:00 07/17/24 12:00 Temperature 36.7 C 36.8 C Pulse Rate 77 77 87 Respiratory Rate 18 18 18 Blood Pressure 150/80 H 158/90 H Pulse Oximetry 100 100 97 Oxygen Delivery Room Air Fraction of Inspired Oxygen 21 Intake/Output Intake/Output: Intake & Output 07/14/24 07/15/24 07/16/24 07/17/24 23:59 23:59 23:59 23:59 Intake Total 1760.7 2623.0 2302.5 1152.5 Output Total 1200 1450 1550 740 Balance 560.7 1173.0 752.5 412.5 Meds/Results Medications: Active Medications Generic Name Dose Route Start Last Admin Trade Name Freq PRN Reason Stop Dose Admin Acetaminophen 650 mg 07/15/24 15:21 Acetaminophen 325 Mg Tablet PO Q6H PRN Mild Pain (1-3) or Fever Alteplase, Recombinant 2 mg 07/11/24 05:49 07/13/24 06:09 Alteplase 2 Mg Vial (Cathflo) IV PUSH 2 mg ONCE PRN Administration Line Occlusion Dextrose 12.5 gm 07/02/24 13:59 Dextrose 50% 25 Gm/50 Ml Syringe IV PUSH PRN PRN Hypoglycemia Protocol Enoxaparin Sodium 40 mg 06/29/24 09:00 07/17/24 07:52 Enoxaparin 40 Mg/0.4 Ml Syringe SUB-Q 40 mg DAILY VANDANA Administration Glucagon 1 mg 07/02/24 13:59 Glucagon For Inj 1 Mg Vial IM PRN PRN Hypoglycemia Protocol Glucose 15 gm 07/02/24 13:59 Glucose Oral Gel 15 Gm Of Glucse In 37.5 Gm Tube PO PRN PRN Hypoglycemia Protocol Hydralazine HCl 20 mg 07/02/24 10:27 07/14/24 05:17 Hydralazine Hcl 20 Mg/Ml Vial IV PUSH 20 mg Q6H PRN Administration Hypertension Dextrose 1,000 mls @ 100 mls/hr 07/02/24 13:59 Dextrose 5% 1,000 Ml IVPB PRN PRN Hypoglycemia Protocol Dextrose 1,000 mls @ 50 mls/hr 07/13/24 08:07 Dextrose 10% IV CONT .Q20H PRN if PN is interrupted Multivitamins 1.25 ml/ 1,002.5 mls @ 70 mls/hr 07/13/24 09:30 07/17/24 00:18 Multivitamins 1.25 ml/ Amino IV CONT 70 mls/hr Acids/Electrolytes/Dextrose .[id number] VANDANA Administration Protocol Fat Emulsion Intravenous 250 mls @ 20.833 mls/hr 07/13/24 09:30 07/16/24 21:31 Lipids 20% IVPB Infused Q24H VANDANA Infusion Metoprolol Succinate 25 mg 07/16/24 09:00 07/17/24 07:52 Metoprolol Succinate Ext Rel 25 Mg Tabcr PO 25 mg QAM VANDANA Administration Naloxone HCl 0.1 mg 07/06/24 18:50 Naloxone Hcl 0.4 Mg/Ml Vial IV PUSH Q2M PRN Opiate Reversal Ondansetron HCl 4 mg 06/27/24 08:21 07/12/24 10:06 Ondansetron Inj 4 Mg/2 Ml Vial IV PUSH 4 mg Q4H PRN Administration Nausea Pantoprazole Sodium 40 mg 07/16/24 09:00 07/17/24 07:52 Pantoprazole 40 Mg Tablet PO 40 mg QAM VANDANA Administration Potassium Chloride 40 meq 07/11/24 11:50 07/17/24 07:51 Potassium Chloride 20 Meq Packet (For Liquid) PO 40 meq BID VANDANA Administration Sodium Bicarbonate 650 mg 07/10/24 17:00 07/17/24 07:52 Sodium Bicarbonate Tab 650 Mg Tablet PO 650 mg BID VANDANA Administration Sodium Chloride 10 ml 07/02/24 22:00 07/17/24 06:45 Central Line Flush IV PUSH 10 ml Q8HR VANDANA Administration Sodium Chloride 10 ml 07/02/24 15:38 07/04/24 14:13 Central Line Flush IV PUSH 10 ml PRN PRN Administration with TPN bag changes Sodium Chloride 20 ml 07/02/24 15:38 Central Line Flush IV PUSH PRN PRN after blood draws Thiamine HCl 100 mg 07/16/24 09:00 07/17/24 07:52 Thiamine Hcl 100 Mg Tablet PO 100 mg QAM VANDANA Administration Radiology Results: ITS Impressions Chest/Abdomen/Pelvis CTA 06/27/24 06:17 IMPRESSION: CHEST: 1. No pulmonary embolism. No aortic dissection 2. No acute cardiopulmonary pathology. ABDOMEN/PELVIS: 1. Small bowel obstruction with the transition zone in the terminal ileum area. Clinical correlation advised. 2. No evidence of appendicitis, or diverticulitis. Head CT 06/27/24 06:59 IMPRESSION: No acute intracranial findings. Cervical Spine CT 06/27/24 07:58 IMPRESSION: No acute osseous abnormality cervical spine. Multilevel degenerative disc disease. NG Tube Placement 07/02/24 07:18 IMPRESSION: Fluoroscopy used during NG tube placement in the stomach. Abdomen/Pelvis CT 07/07/24 05:20 Impression: Small amount of pneumoperitoneum, likely postoperative with evidence of recent midline incision stapling since prior exam. Correlate with surgical history. Bowel distention/bowel obstruction is essentially resolved as compared to prior exam. Small bowel evaluation is limited on the current exam due to extensive matting together of bowel loops. Small amount of ascites. Small pleural effusions with bibasilar pulmonary edema/atelectasis versus pneumonia. Correlate clinically. Chest X-Ray 07/08/24 13:34 Impression: 1: Developing patchy bilateral airspace disease, compatible with pneumonia. Venous Doppler Study 07/09/24 00:02 IMPRESSION: Negative right upper extremity venous US. No deep vein thrombosis. Upper GI Series 07/09/24 13:13 IMPRESSION: 1. No bowel obstruction or ileus with normal small bowel transit time and normal caliber and mucosal fold pattern to the small bowel. Abdomen X-Ray 07/15/24 06:41 Impression: Small bowel obstruction. Small Bowel X-Ray 07/15/24 12:57 IMPRESSION: 1. Normal small bowel follow-through. Labs Labs: Laboratory Results - last 24 hr 07/16/24 07/17/24 07/17/24 18:41 00:07 05:59 WBC RBC Hgb Hct MCV MCH MCHC RDW Plt Count MPV Immature Gran % (Auto) Neut % (Auto) Lymph % (Auto) [place] % (Auto) Eos % (Auto) Baso % (Auto) Lymph # (Auto) [place] # (Auto) Eos # (Auto) Baso # (Auto) Abs Immat Gran (auto) Absolute Neuts (auto) Absolute Nucleated RBC Nucleated RBC % Sodium Potassium Chloride Carbon Dioxide Anion Gap BUN Creatinine Estim Creat Clear Calc Estimated GFR Glucose POC Capillary Glucose 114 H 111 H 114 H Calcium Total Bilirubin AST ALT Alkaline Phosphatase Total Protein Albumin 07/17/24 07/17/24 07/17/24 07:25 07:41 12:08 WBC 10.5 H RBC 2.89 L Hgb 8.8 L Hct 27.4 L MCV 94.8 MCH 30.4 MCHC 32.1 RDW 13.8 Plt Count 421 H MPV 10.1 Immature Gran % (Auto) 1.2 H Neut % (Auto) 71.9 Lymph % (Auto) 14.9 L [place] % (Auto) 8.8 H Eos % (Auto) 2.4 Baso % (Auto) 0.8 Lymph # (Auto) 1.56 [place] # (Auto) 0.9 H Eos # (Auto) 0.3 Baso # (Auto) 0.1 Abs Immat Gran (auto) 0.13 H Absolute Neuts (auto) 7.6 H Absolute Nucleated RBC 0.000 Nucleated RBC % 0.0 Sodium 132 L Potassium 3.6 Chloride 103 Carbon Dioxide 28 Anion Gap 1 L BUN 12 Creatinine 0.65 L Estim Creat Clear Calc 93 Estimated GFR > 60 Glucose 110 POC Capillary Glucose 113 H 108 H Calcium 7.5 L Total Bilirubin 0.2 AST 24 ALT 12 Alkaline Phosphatase 84 Total Protein 5.0 L Albumin 2.2 L
[2024-07-17 18:54] LABS: Glucose Point of Care 127 mg/dl (65-105)
[2024-07-17 23:22] LABS: Glucose Point of Care 123 mg/dl (65-105)
[2024-07-18] VITALS (9 sets, daily range): BP systolic 135–153; BP diastolic 74–83; PULSE 82–95; RESP 12–20; TEMP 35.9–36.7; O2SAT 94–98
[2024-07-18 04:41] LABS: Glucose Point of Care 113 mg/dl (65-105)
[2024-07-18 06:21] LABS: Basophils Absolute Auto 0.1 K/mm3 (0.0-0.1); Basophils Percent Auto 0.9 % (0.2-1.2); Eosinophils Absolute Auto 0.3 K/mm3 (0-0.3); Eosinophils Percent Auto 3.1 % (0-4.4); Hemoglobin 8.9 g/dL (14.0-18.0); Immature Granulocyte Absolute 0.15 K/mm3 (0.00-0.031); Immature Granulocyte Percent A 1.5 % (0-0.5); Lymphocytes Absolute Auto 1.73 K/mm3 (0.9-3.2); Lymphocytes Percent Auto 16.9 % (18.3-44.2); Mean Corpuscular HGB Conc 31.8 g/dl (32-36); Mean Corpuscular Hemoglobin 30.3 pg (26-34); Mean Corpuscular Volume 95.2 fl (80-100); Mean Platelet Volume 10.2 fl (7.4-10.4); Monocytes Percent Auto 9.3 % (2.6-8.5); Neutrophils Percent Auto 68.3 % (45.5-73.1); Platelet Count Result 416 k/mm3 (150-375); Red Blood Count 2.94 M/mm3 (4.6-6.20); Red Cell Distribution Width 13.8 % (11.5-14.5); White Blood Count 10.2 K/mm3 (4.5-10.0)
[2024-07-18] MEDS: CENTRAL LINE FLUSH 10 ML IV PUSH ×3 (06:30→22:16)
[2024-07-18 06:34] LABS: Anion Gap 4 mmol/L (4-12); Blood Urea Nitrogen 12 mg/dL (9-20); Calcium 7.5 mg/dL (8.4-10.2); Carbon Dioxide 28 mmol/L (22-30); Chloride 99 mmol/L (98-107); Estimated CRCL calculation 103 ml/min; Estimated Glomerular Filt Rate > 60; Glucose 101 mg/dL (65-110); Phosphorus 3.5 mg/dL (2.5-4.5); Potassium 3.5 mmol/L (3.4-5.0); Sodium 131 mmol/L (137-145)
--- NOTE | 2024-07-18 07:18 | P.PNIM_ITS ---
Progress Note: A&P Assessment and Plan (1) Small bowel obstruction: Code(s): K56.609 - Unspecified intestinal obstruction, unspecified as to partial versus complete obstruction Status: Acute Assessment and Plan: Patient admitted after complaints of ABD pain with N/V. CT chest abdomen pelvis CTA was performed which showed no PE no aortic dissection. Abdomen pelvis showed small-bowel obstruction with the transition zone in the terminal ileum area. No evidence of appendicitis or diverticulitis. General surgery was consulted and patient was taken for exploratory laparotomy 06/29/2024 for repair serosal tears x2. IV fluids switched to Dextrose 5/water NA up to 149 and BS 68. Patient had pulled out his NG tube which was replaced under fluoroscopy, mild distention noted reporting having flatulence and bowel movement reported overnight, Tolerating TPN . Continue to encourage patient to get up and perform activity ordered PT/OT. reported he appeared more lethargic yesterday afternoon pain medication adjusted by surgery less lethargic today small bowel series showed persistent ileus versus small-bowel obstruction with contrast not having reach the distal most dilated loops . Patient was post-op day 7 and KUB which continued to show postoperative SBO. He had a repeat CT scan on 07/06/2024 which shown findings compatible with small bowel obstruction with transition point in the mid small bowel, small amount of ascites with mesenteric edema, small right pleural effusion with patchy bibasilar pulmonary consolidation. He was then taken to the OR on 07/06/[address] Shipman 4 lysis of adhesion with resection of the jejunal perforation with anastomosis. With wound vac placed. He had a small bowel series 07/15/2024 showed normal follow through. Patient passing gas and having BM's. Attempt to advance diet as tolerated, wean off TPN. * Diet advanced to soft diet * pain control * ambulate as tolerated * Antiemetics * Incentive spirometer * PT/OT * Continue serial KUB * Continue wound vac evaluation by surgery * No changes per Gen Surg (2) Hypertension: Code(s): I10 - Essential (primary) hypertension Status: Acute Assessment and Plan: patient has been hypertensive systolics running between 180s to 160s. patient does not take any hypertensive medications at home will re-evaluate prior to discharge if patient will need oral antihypertensive medications at discharge after current acute issues are resolved. Transition to oral medications now that he is tolerating diet * Hydralazine 20 mg IV push as needed for systolics greater than 160 * episodes of tachycardia surgery added metoprolol IV push PRN * BP per unit protocol (3) Hypokalemia: Code(s): E87.6 - Hypokalemia Status: Acute Assessment and Plan: * Potassium 3.3 * Supplement * Keep K+ >4.0 (4) Chronic alcohol use: Code(s): F10.90 - Alcohol use, unspecified, uncomplicated Status: Chronic Assessment and Plan: Does not appear in withdrawal at this time will continue to monitor * Last drink / * Thiamine, folic acid, and multi-vitamin * PPI daily * librium PRN * CIWA daily * Monitor and replenish electrolytes as needed (5) ORTEGA (acute kidney injury): Code(s): N17.9 - Acute kidney failure, unspecified Status: Resolved Assessment and Plan: * Acute kidney injury CR 1.98 POA since resolved with IV fluids (6) Hyponatremia: Code(s): E87.1 - Hypo-osmolality and hyponatremia Status: Resolved Assessment and Plan: * Resolved likely secondary to dehydration and ETOH abuse patient was initially 130 POA resolved with IV fluids (7) Hypernatremia: Code(s): E87.0 - Hyperosmolality and hypernatremia Status: Resolved Assessment and Plan: * Patient now with hypernatremia at 149 discussed with surgery we will switch his IV fluids to dextrose 5 and water follow-up BMP later on today Plan Code status: Full code per patient DVT prophylaxis: Lovenox Stress ulcer prophylaxis: Protonix 40 daily PT/OT notes: Ambulatory Disposition: Patient continues admission to the medical unit for further treatment small-bowel obstruction wound vac in place advancing diet to soft CC consulted to assist in rehab placement. Time Spent With Patient Time: Subjective Date/time seen: 07/18/24 07:18 Interval history: This is a 64-year-old male who presented to the ED with few days history of nausea vomiting and abdominal pain. He also reports not having bowel movement for past few days. Was found to has small-bowel obstruction underwent exploratory laparotomy in it colitis with repair of serosal tears 06/30/2024. He had a repeat CT scan on 07/06/2024 which shown findings compatible with small bowel obstruction with transition point in the mid small bowel, small amount of ascites with mesenteric edema, small right pleural effusion with patchy bibasilar pulmonary consolidation. He was then taken to the OR on 07/06/[address] Umberto Betancur lysis of adhesion with resection of the jejunal perforation with anastomosis. 07/18/2024: Pt examined sitting comfortably in bed at time of examination. Denies any chest pain, shortness a breath, nausea vomiting, or abdominal pain at this time. General surgery continues to follow. Continue to encourage p.o. intake and low- fiber diet, continuing TPN but will attempt to wean tomorrow. Encouraged to continue with PT/OT and will need continued rehab care after discharge. Besides mild incisional pain, no other complaints. Review of Systems Review of Systems: All systems reviewed & are unremarkable except as noted in HPI and below Exam Narrative: General: In no acute distress, cooperative, comfortable HEENT - normocephalic. Atraumatic. Pupils equal round and reactive. Extraocular motions intact. Sclera clear and anicteric. Cardiac: Normal S1 and S2. Normal sinus rhythm 80s to 90s, No murmur, gallops or friction rubs, peripheral pulses intact. Respiratory: Lungs clear to auscultation, no adventitious lung sounds, currently on room air Gastrointestinal: normal to inspection, abdominal tenderness, Soft to palpation : Eller catheter in place draining clear yellow urine Skin: Midline incision with wound vac in place SS drainage noted in container Neuro: Alert and oriented x3 Const: General: comfortable and no acute distress HENMT: Mouth: Yes moist mucous membranes Eyes: General: appearance normal, both eyes and all related structures Pupils: Equal, round and reactive pupils present Neck: Neck: supple and no JVD Resp: Effort & Inspection: normal respiratory effort Auscultation: clear to auscultation bilaterally Cardio: Rate: regular rate Rhythm: regular rhythm GI: Auscultation: abnormal bowel sounds (hypoactive) Other: Midline incision with wound vac in place Skin: General skin exam: normal color Neuro: General: gait normal Cranial nerves: Yes Equal, round and reactive pupils present Speech: normal speech Extrem: General: normal to inspection Psych: Mental Status: mental status grossly normal Affect: normal affect Objective Data Vital Signs Vital Signs: Vital Signs - 24 hr 07/17/24 08:00 07/17/24 08:00 07/17/24 08:00 Temperature 98.1 F Pulse Rate 77 77 89 Respiratory Rate 18 18 Blood Pressure 150/80 H Pulse Oximetry 100 100 Oxygen Delivery Room Air Fraction of Inspired Oxygen 07/17/24 12:00 07/17/24 12:00 07/17/24 16:00 Temperature 98.2 F Pulse Rate 87 88 88 Respiratory Rate 18 Blood Pressure 158/90 H Pulse Oximetry 97 Oxygen Delivery Fraction of Inspired Oxygen 07/17/24 16:00 07/17/24 16:28 07/17/24 20:00 Temperature 98.1 F 97.7 F Pulse Rate 88 83 89 Respiratory Rate 18 14 Blood Pressure 150/78 H 148/78 H Pulse Oximetry 98 96 Oxygen Delivery Fraction of Inspired Oxygen 07/17/24 20:02 07/17/24 21:12 07/17/24 23:28 Temperature 97.1 F L Pulse Rate 89 89 Respiratory Rate 12 Blood Pressure 158/80 H Pulse Oximetry 97 Oxygen Delivery Room Air Fraction of Inspired Oxygen 07/18/24 00:02 07/18/24 04:00 07/18/24 04:02 Temperature 97.5 F L Pulse Rate 84 88 83 Respiratory Rate 13 Blood Pressure 153/80 H Pulse Oximetry 96 Oxygen Delivery Fraction of Inspired Oxygen Intake/Output Intake/Output: Intake & Output 07/15/24 07/16/24 07/17/24 07/18/24 23:59 23:59 23:59 23:59 Intake Total 2623.0 2302.5 2405.0 300 Output Total 1450 8601 160 3805 Balance 1173.0 752.5 1655.0 -1800 Meds/Results Medications: Active Medications Generic Name Dose Route Start Last Admin Trade Name Freq PRN Reason Stop Dose Admin Acetaminophen 650 mg 07/15/24 15:21 Acetaminophen 325 Mg Tablet PO Q6H PRN Mild Pain (1-3) or Fever Alteplase, Recombinant 2 mg 07/11/24 05:49 07/13/24 06:09 Alteplase 2 Mg Vial (Cathflo) IV PUSH 2 mg ONCE PRN Administration Line Occlusion Dextrose 12.5 gm 07/02/24 13:59 Dextrose 50% 25 Gm/50 Ml Syringe IV PUSH PRN PRN Hypoglycemia Protocol Enoxaparin Sodium 40 mg 06/29/24 09:00 07/17/24 07:52 Enoxaparin 40 Mg/0.4 Ml Syringe SUB-Q 40 mg DAILY VANDANA Administration Glucagon 1 mg 07/02/24 13:59 Glucagon For Inj 1 Mg Vial IM PRN PRN Hypoglycemia Protocol Glucose 15 gm 07/02/24 13:59 Glucose Oral Gel 15 Gm Of Glucse In 37.5 Gm Tube PO PRN PRN Hypoglycemia Protocol Hydralazine HCl 20 mg 07/02/24 10:27 07/14/24 05:17 Hydralazine Hcl 20 Mg/Ml Vial IV PUSH 20 mg Q6H PRN Administration Hypertension Dextrose 1,000 mls @ 100 mls/hr 07/02/24 13:59 Dextrose 5% 1,000 Ml IVPB PRN PRN Hypoglycemia Protocol Dextrose 1,000 mls @ 50 mls/hr 07/13/24 08:07 Dextrose 10% IV CONT .Q20H PRN if PN is interrupted Multivitamins 1.25 ml/ 1,002.5 mls @ 70 mls/hr 07/13/24 09:30 07/17/24 17:26 Multivitamins 1.25 ml/ Amino IV CONT 70 mls/hr Acids/Electrolytes/Dextrose .[id number] VANDANA Administration Protocol Fat Emulsion Intravenous 250 mls @ 20.833 mls/hr 07/13/24 09:30 07/17/24 21:32 Lipids 20% IVPB Infused Q24H VANDANA Infusion Metoprolol Succinate 25 mg 07/16/24 09:00 07/17/24 07:52 Metoprolol Succinate Ext Rel 25 Mg Tabcr PO 25 mg QAM VANDANA Administration Naloxone HCl 0.1 mg 07/06/24 18:50 Naloxone Hcl 0.4 Mg/Ml Vial IV PUSH Q2M PRN Opiate Reversal Ondansetron HCl 4 mg 06/27/24 08:21 07/12/24 10:06 Ondansetron Inj 4 Mg/2 Ml Vial IV PUSH 4 mg Q4H PRN Administration Nausea Pantoprazole Sodium 40 mg 07/16/24 09:00 07/17/24 07:52 Pantoprazole 40 Mg Tablet PO 40 mg QAM VANDANA Administration Potassium Chloride 40 meq 07/11/24 11:50 07/17/24 17:25 Potassium Chloride 20 Meq Packet (For Liquid) PO 40 meq BID VANDANA Administration Sodium Bicarbonate 650 mg 07/10/24 17:00 07/17/24 17:26 Sodium Bicarbonate Tab 650 Mg Tablet PO 650 mg BID VANDANA Administration Sodium Chloride 10 ml 07/02/24 22:00 07/18/24 06:30 Central Line Flush IV PUSH 10 ml Q8HR VANDANA Administration Sodium Chloride 10 ml 07/02/24 15:38 07/04/24 14:13 Central Line Flush IV PUSH 10 ml PRN PRN Administration with TPN bag changes Sodium Chloride 20 ml 07/02/24 15:38 Central Line Flush IV PUSH PRN PRN after blood draws Thiamine HCl 100 mg 07/16/24 09:00 07/17/24 07:52 Thiamine Hcl 100 Mg Tablet PO 100 mg QAM VANDANA Administration Radiology Results: ITS Impressions Chest/Abdomen/Pelvis CTA 06/27/24 06:17 IMPRESSION: CHEST: 1. No pulmonary embolism. No aortic dissection 2. No acute cardiopulmonary pathology. ABDOMEN/PELVIS: 1. Small bowel obstruction with the transition zone in the terminal ileum area. Clinical correlation advised. 2. No evidence of appendicitis, or diverticulitis. Head CT 06/27/24 06:59 IMPRESSION: No acute intracranial findings. Cervical Spine CT 06/27/24 07:58 IMPRESSION: No acute osseous abnormality cervical spine. Multilevel degenerative disc disease. NG Tube Placement 07/02/24 07:18 IMPRESSION: Fluoroscopy used during NG tube placement in the stomach. Abdomen/Pelvis CT 07/07/24 05:20 Impression: Small amount of pneumoperitoneum, likely postoperative with evidence of recent midline incision stapling since prior exam. Correlate with surgical history. Bowel distention/bowel obstruction is essentially resolved as compared to prior exam. Small bowel evaluation is limited on the current exam due to extensive matting together of bowel loops. Small amount of ascites. Small pleural effusions with bibasilar pulmonary edema/atelectasis versus pneumonia. Correlate clinically. Chest X-Ray 07/08/24 13:34 Impression: 1: Developing patchy bilateral airspace disease, compatible with pneumonia. Venous Doppler Study 07/09/24 00:02 IMPRESSION: Negative right upper extremity venous US. No deep vein thrombosis. Upper GI Series 07/09/24 13:13 IMPRESSION: 1. No bowel obstruction or ileus with normal small bowel transit time and normal caliber and mucosal fold pattern to the small bowel. Abdomen X-Ray 07/15/24 06:41 Impression: Small bowel obstruction. Small Bowel X-Ray 07/15/24 12:57 IMPRESSION: 1. Normal small bowel follow-through. Labs Labs: Laboratory Results - last 24 hr 07/17/24 07/17/24 07/17/24 07:25 07:41 12:08 WBC 10.5 H RBC 2.89 L Hgb 8.8 L Hct 27.4 L MCV 94.8 MCH 30.4 MCHC 32.1 RDW 13.8 Plt Count 421 H MPV 10.1 Immature Gran % (Auto) 1.2 H Neut % (Auto) 71.9 Lymph % (Auto) 14.9 L [place] % (Auto) 8.8 H Eos % (Auto) 2.4 Baso % (Auto) 0.8 Lymph # (Auto) 1.56 [place] # (Auto) 0.9 H Eos # (Auto) 0.3 Baso # (Auto) 0.1 Abs Immat Gran (auto) 0.13 H Absolute Neuts (auto) 7.6 H Absolute Nucleated RBC 0.000 Nucleated RBC % 0.0 Sodium 132 L Potassium 3.6 Chloride 103 Carbon Dioxide 28 Anion Gap 1 L BUN 12 Creatinine 0.65 L Estim Creat Clear Calc 93 Estimated GFR > 60 Glucose 110 POC Capillary Glucose 113 H 108 H Calcium 7.5 L Phosphorus Total Bilirubin 0.2 AST 24 ALT 12 Alkaline Phosphatase 84 Total Protein 5.0 L Albumin 2.2 L 07/17/24 07/17/24 07/18/24 18:50 23:15 04:33 WBC RBC Hgb Hct MCV MCH MCHC RDW Plt Count MPV Immature Gran % (Auto) Neut % (Auto) Lymph % (Auto) [place] % (Auto) Eos % (Auto) Baso % (Auto) Lymph # (Auto) [place] # (Auto) Eos # (Auto) Baso # (Auto) Abs Immat Gran (auto) Absolute Neuts (auto) Absolute Nucleated RBC Nucleated RBC % Sodium Potassium Chloride Carbon Dioxide Anion Gap BUN Creatinine Estim Creat Clear Calc Estimated GFR Glucose POC Capillary Glucose 127 H 123 H 113 H Calcium Phosphorus Total Bilirubin AST ALT Alkaline Phosphatase Total Protein Albumin 07/18/24 06:08 WBC 10.2 H RBC 2.94 L Hgb 8.9 L Hct 28.0 L MCV 95.2 MCH 30.3 MCHC 31.8 L RDW 13.8 Plt Count 416 H MPV 10.2 Immature Gran % (Auto) 1.5 H Neut % (Auto) 68.3 Lymph % (Auto) 16.9 L [place] % (Auto) 9.3 H Eos % (Auto) 3.1 Baso % (Auto) 0.9 Lymph # (Auto) 1.73 [place] # (Auto) 1.0 H Eos # (Auto) 0.3 Baso # (Auto) 0.1 Abs Immat Gran (auto) 0.15 H Absolute Neuts (auto) 7.0 H Absolute Nucleated RBC 0.000 Nucleated RBC % 0.0 Sodium 131 L Potassium 3.5 Chloride 99 Carbon Dioxide 28 Anion Gap 4 BUN 12 Creatinine 0.58 L Estim Creat Clear Calc 103 Estimated GFR > 60 Glucose 101 POC Capillary Glucose Calcium 7.5 L Phosphorus 3.5 Total Bilirubin AST ALT Alkaline Phosphatase Total Protein Albumin Quality VTE Prophylaxis VTE prophylaxis: pharmacologic ordered
[2024-07-18] MEDS: FAT EMULSIONS IV 20% 250 ML 20.83 ML IVPB (08:33)
[2024-07-18] MEDS: AMINO ACIDS 5%/D15W/E-LYTES/CA 1,000 ML with MULTIVITAMINS-12 INJ VIAL 1 1.25 ML, MULTI... 70 ML IV CONT ×2 (08:33→22:16)
[2024-07-18] MEDS: POTASSIUM CHLORIDE 20 MEQ PACKET (FOR LIQUID) 40 MEQ PO ×2 (08:33→17:33)
[2024-07-18] MEDS: ENOXAPARIN 40 MG/0.4 ML SYRINGE SUB-Q (08:34)
[2024-07-18] MEDS: THIAMINE HCL 100 MG TABLET PO (08:34)
[2024-07-18] MEDS: SODIUM BICARBONATE TAB 650 MG TABLET PO ×2 (08:34→17:33)
[2024-07-18] MEDS: PANTOPRAZOLE 40 MG TABLET PO (08:34)
[2024-07-18] MEDS: METOPROLOL SUCCINATE EXT REL 25 MG TABCR PO (08:34)
[2024-07-18 10:08] LABS: Triglycerides 163 mg/dL (<150)
--- NOTE | 2024-07-18 10:08 | PCOTNOTE ---
Attempted to see pt for OT treatment this AM. Pt is declining therapy on this date due to fatigue with pt reporting he did not sleep last night. Pt is educated on the importance of continued mobility and strengthening for increase independence with daily tasks, however, pt continues to decline. Will attempt per poc duration/frequency tomorrow.
--- NOTE | 2024-07-18 10:14 | P.PNGS_ITS ---
Progress Note: A&P Assessment and Plan (1) Small bowel obstruction: Code(s): K56.609 - Unspecified intestinal obstruction, unspecified as to partial versus complete obstruction Status: Acute Assessment and Plan: pathology reviewed, continue to encourage p.o. intake and low-fiber diet, continue TPN at this point, PT/OT, will need rehab (2) Protein-calorie malnutrition, severe: Code(s): E43 - Unspecified severe protein-calorie malnutrition Status: Acute Assessment and Plan: continue to encourage p.o. intake, continue TPN for now Subjective Subjective Date/Time Seen: 07/18/24 10:14 Interval history: no issues, continues to be weak, mild incisional pain Review of Systems Review of Systems: All systems reviewed & are unremarkable except as noted in HPI and below Exam Const: General: cooperative, comfortable, no acute distress and ill appearing Resp: Auscultation: clear to auscultation bilaterally Cardio: Rate: regular rate Rhythm: regular rhythm GI: Inspection: normal to inspection and incision GI Palp: Yes abdominal tenderness and Yes Soft to palpation Other: VAC clean dry and intact Objective Data Vital Signs Vital Signs: Vital Signs - 24 hr 07/17/24 12:00 07/17/24 12:00 07/17/24 16:00 Temperature 36.8 C Pulse Rate 87 88 88 Respiratory Rate 18 Blood Pressure 158/90 H Pulse Oximetry 97 Oxygen Delivery 07/17/24 16:00 07/17/24 16:28 07/17/24 20:00 Temperature 36.7 C 36.5 C Pulse Rate 88 83 89 Respiratory Rate 18 14 Blood Pressure 150/78 H 148/78 H Pulse Oximetry 98 96 Oxygen Delivery 07/17/24 20:02 07/17/24 21:12 07/17/24 23:28 Temperature 36.2 C L Pulse Rate 89 89 Respiratory Rate 12 Blood Pressure 158/80 H Pulse Oximetry 97 Oxygen Delivery Room Air 07/18/24 00:02 07/18/24 04:00 07/18/24 04:02 Temperature 36.4 C L Pulse Rate 84 88 83 Respiratory Rate 13 Blood Pressure 153/80 H Pulse Oximetry 96 Oxygen Delivery 07/18/24 08:00 07/18/24 08:00 07/18/24 08:34 Temperature 36.4 C L Pulse Rate 87 90 82 Respiratory Rate 18 Blood Pressure 148/81 H Pulse Oximetry 97 Oxygen Delivery Intake/Output Intake/Output: Intake & Output 07/15/24 07/16/24 07/17/24 07/18/24 23:59 23:59 23:59 23:59 Intake Total 2623.0 2302.5 2405.0 1602.5 Output Total 1450 9924 867 9084 Balance 1173.0 752.5 1655.0 -497.5 Meds/Results Medications: Active Medications Generic Name Dose Route Start Last Admin Trade Name Freq PRN Reason Stop Dose Admin Acetaminophen 650 mg 07/15/24 15:21 Acetaminophen 325 Mg Tablet PO Q6H PRN Mild Pain (1-3) or Fever Alteplase, Recombinant 2 mg 07/11/24 05:49 07/13/24 06:09 Alteplase 2 Mg Vial (Cathflo) IV PUSH 2 mg ONCE PRN Administration Line Occlusion Dextrose 12.5 gm 07/02/24 13:59 Dextrose 50% 25 Gm/50 Ml Syringe IV PUSH PRN PRN Hypoglycemia Protocol Enoxaparin Sodium 40 mg 06/29/24 09:00 07/18/24 08:34 Enoxaparin 40 Mg/0.4 Ml Syringe SUB-Q 40 mg DAILY VANDANA Administration Glucagon 1 mg 07/02/24 13:59 Glucagon For Inj 1 Mg Vial IM PRN PRN Hypoglycemia Protocol Glucose 15 gm 07/02/24 13:59 Glucose Oral Gel 15 Gm Of Glucse In 37.5 Gm Tube PO PRN PRN Hypoglycemia Protocol Hydralazine HCl 20 mg 07/02/24 10:27 07/14/24 05:17 Hydralazine Hcl 20 Mg/Ml Vial IV PUSH 20 mg Q6H PRN Administration Hypertension Dextrose 1,000 mls @ 100 mls/hr 07/02/24 13:59 Dextrose 5% 1,000 Ml IVPB PRN PRN Hypoglycemia Protocol Dextrose 1,000 mls @ 50 mls/hr 07/13/24 08:07 Dextrose 10% IV CONT .Q20H PRN if PN is interrupted Multivitamins 1.25 ml/ 1,002.5 mls @ 70 mls/hr 07/13/24 09:30 07/18/24 08:33 Multivitamins 1.25 ml/ Amino IV CONT 70 mls/hr Acids/Electrolytes/Dextrose .[id number] VANDANA Administration Protocol Fat Emulsion Intravenous 250 mls @ 20.833 mls/hr 07/13/24 09:30 07/18/24 08:33 Lipids 20% IVPB 20.83 mls/hr Q24H VANDANA Administration Metoprolol Succinate 25 mg 07/16/24 09:00 07/18/24 08:34 Metoprolol Succinate Ext Rel 25 Mg Tabcr PO 25 mg QAM VANDANA Administration Naloxone HCl 0.1 mg 07/06/24 18:50 Naloxone Hcl 0.4 Mg/Ml Vial IV PUSH Q2M PRN Opiate Reversal Ondansetron HCl 4 mg 06/27/24 08:21 07/12/24 10:06 Ondansetron Inj 4 Mg/2 Ml Vial IV PUSH 4 mg Q4H PRN Administration Nausea Pantoprazole Sodium 40 mg 07/16/24 09:00 07/18/24 08:34 Pantoprazole 40 Mg Tablet PO 40 mg QAM VANDANA Administration Potassium Chloride 40 meq 07/11/24 11:50 07/18/24 08:33 Potassium Chloride 20 Meq Packet (For Liquid) PO 40 meq BID VANDANA Administration Sodium Bicarbonate 650 mg 07/10/24 17:00 07/18/24 08:34 Sodium Bicarbonate Tab 650 Mg Tablet PO 650 mg BID VANDANA Administration Sodium Chloride 10 ml 07/02/24 22:00 07/18/24 06:30 Central Line Flush IV PUSH 10 ml Q8HR VANDANA Administration Sodium Chloride 10 ml 07/02/24 15:38 07/04/24 14:13 Central Line Flush IV PUSH 10 ml PRN PRN Administration with TPN bag changes Sodium Chloride 20 ml 07/02/24 15:38 Central Line Flush IV PUSH PRN PRN after blood draws Thiamine HCl 100 mg 07/16/24 09:00 07/18/24 08:34 Thiamine Hcl 100 Mg Tablet PO 100 mg QAM VANDANA Administration Radiology Results: ITS Impressions Chest/Abdomen/Pelvis CTA 06/27/24 06:17 IMPRESSION: CHEST: 1. No pulmonary embolism. No aortic dissection 2. No acute cardiopulmonary pathology. ABDOMEN/PELVIS: 1. Small bowel obstruction with the transition zone in the terminal ileum area. Clinical correlation advised. 2. No evidence of appendicitis, or diverticulitis. Head CT 06/27/24 06:59 IMPRESSION: No acute intracranial findings. Cervical Spine CT 06/27/24 07:58 IMPRESSION: No acute osseous abnormality cervical spine. Multilevel degenerative disc disease. NG Tube Placement 07/02/24 07:18 IMPRESSION: Fluoroscopy used during NG tube placement in the stomach. Abdomen/Pelvis CT 07/07/24 05:20 Impression: Small amount of pneumoperitoneum, likely postoperative with evidence of recent midline incision stapling since prior exam. Correlate with surgical history. Bowel distention/bowel obstruction is essentially resolved as compared to prior exam. Small bowel evaluation is limited on the current exam due to extensive matting together of bowel loops. Small amount of ascites. Small pleural effusions with bibasilar pulmonary edema/atelectasis versus pneumonia. Correlate clinically. Chest X-Ray 07/08/24 13:34 Impression: 1: Developing patchy bilateral airspace disease, compatible with pneumonia. Venous Doppler Study 07/09/24 00:02 IMPRESSION: Negative right upper extremity venous US. No deep vein thrombosis. Upper GI Series 07/09/24 13:13 IMPRESSION: 1. No bowel obstruction or ileus with normal small bowel transit time and normal caliber and mucosal fold pattern to the small bowel. Abdomen X-Ray 07/15/24 06:41 Impression: Small bowel obstruction. Small Bowel X-Ray 07/15/24 12:57 IMPRESSION: 1. Normal small bowel follow-through. Labs Labs: Laboratory Results - last 24 hr 07/17/24 07/17/24 07/17/24 12:08 18:50 23:15 WBC RBC Hgb Hct MCV MCH MCHC RDW Plt Count MPV Immature Gran % (Auto) Neut % (Auto) Lymph % (Auto) [place] % (Auto) Eos % (Auto) Baso % (Auto) Lymph # (Auto) [place] # (Auto) Eos # (Auto) Baso # (Auto) Abs Immat Gran (auto) Absolute Neuts (auto) Absolute Nucleated RBC Nucleated RBC % Sodium Potassium Chloride Carbon Dioxide Anion Gap BUN Creatinine Estim Creat Clear Calc Estimated GFR Glucose POC Capillary Glucose 108 H 127 H 123 H Calcium Phosphorus Triglycerides 07/18/24 07/18/24 04:33 06:08 WBC 10.2 H RBC 2.94 L Hgb 8.9 L Hct 28.0 L MCV 95.2 MCH 30.3 MCHC 31.8 L RDW 13.8 Plt Count 416 H MPV 10.2 Immature Gran % (Auto) 1.5 H Neut % (Auto) 68.3 Lymph % (Auto) 16.9 L [place] % (Auto) 9.3 H Eos % (Auto) 3.1 Baso % (Auto) 0.9 Lymph # (Auto) 1.73 [place] # (Auto) 1.0 H Eos # (Auto) 0.3 Baso # (Auto) 0.1 Abs Immat Gran (auto) 0.15 H Absolute Neuts (auto) 7.0 H Absolute Nucleated RBC 0.000 Nucleated RBC % 0.0 Sodium 131 L Potassium 3.5 Chloride 99 Carbon Dioxide 28 Anion Gap 4 BUN 12 Creatinine 0.58 L Estim Creat Clear Calc 103 Estimated GFR > 60 Glucose 101 POC Capillary Glucose 113 H Calcium 7.5 L Phosphorus 3.5 Triglycerides 163 H
[2024-07-18 11:50] LABS: Glucose Point of Care 115 mg/dl (65-105)
[2024-07-18 18:11] LABS: Glucose Point of Care 127 mg/dl (65-105)
[2024-07-18 23:45] LABS: Glucose Point of Care 116 mg/dl (65-105)
[2024-07-19] VITALS: PULSE 79
[2024-07-19 04:00] VITALS: BP 136/76; PULSE 83; PULSE 92; RESP 12; TEMP 36.3; O2SAT 96
[2024-07-19 05:17] LABS: Glucose Point of Care 126 mg/dl (65-105)
[2024-07-19] MEDS: CENTRAL LINE FLUSH 10 ML IV PUSH ×3 (06:04→22:44)
[2024-07-19 06:23] LABS: Basophils Absolute Auto 0.1 K/mm3 (0.0-0.1); Eosinophils Absolute Auto 0.3 K/mm3 (0-0.3); Eosinophils Percent Auto 2.7 % (0-4.4); Hematocrit 29.5 % (42.0-52.0); Hemoglobin 9.6 g/dL (14.0-18.0); Immature Granulocyte Absolute 0.09 K/mm3 (0.00-0.031); Lymphocytes Absolute Auto 1.72 K/mm3 (0.9-3.2); Lymphocytes Percent Auto 18.5 % (18.3-44.2); Mean Corpuscular HGB Conc 32.5 g/dl (32-36); Mean Corpuscular Hemoglobin 30.7 pg (26-34); Mean Corpuscular Volume 94.2 fl (80-100); Mean Platelet Volume 9.9 fl (7.4-10.4); Monocytes Percent Auto 10.7 % (2.6-8.5); Neutrophils Absolute Auto 6.2 K/mm3 (1.3-6.7); Neutrophils Percent Auto 66.1 % (45.5-73.1); Platelet Count Result 408 k/mm3 (150-375); Red Blood Count 3.13 M/mm3 (4.6-6.20); Red Cell Distribution Width 13.8 % (11.5-14.5); White Blood Count 9.3 K/mm3 (4.5-10.0)
[2024-07-19 06:36] LABS: Partial Thromboplastin Time 28.2 Seconds (22.3-36.8); Prothrombin Time 13.3 Seconds (11.1-14.7)
[2024-07-19 06:45] LABS: Alanine Aminotransferase 13 U/L (6-50); Albumin Level 2.5 g/dL (3.5-5.1); Alkaline Phosphatase 97 U/L (38-126); Anion Gap 2 mmol/L (4-12); Aspartate Amino Transferase 28 U/L (17-59); Bilirubin,Total 0.3 mg/dL (0.2-1.3); Blood Urea Nitrogen 13 mg/dL (9-20); Calcium 7.8 mg/dL (8.4-10.2); Carbon Dioxide 27 mmol/L (22-30); Chloride 100 mmol/L (98-107); Estimated CRCL calculation 90 ml/min; Estimated Glomerular Filt Rate > 60; Glucose 100 mg/dL (65-110); Magnesium 1.9 mg/dL (1.6-2.3); Phosphorus 3.8 mg/dL (2.5-4.5); Potassium 4.3 mmol/L (3.4-5.0); Sodium 129 mmol/L (137-145)
[2024-07-19 06:52] LABS: Transferrin 133 mg/dL (206-381)
--- NOTE | 2024-07-19 07:04 | P.PNIM_ITS ---
Progress Note: A&P Assessment and Plan (1) Small bowel obstruction: Code(s): K56.609 - Unspecified intestinal obstruction, unspecified as to partial versus complete obstruction Status: Acute Assessment and Plan: Patient admitted after complaints of ABD pain with N/V. CT chest abdomen pelvis CTA was performed which showed no PE no aortic dissection. Abdomen pelvis showed small-bowel obstruction with the transition zone in the terminal ileum area. No evidence of appendicitis or diverticulitis. General surgery was consulted and patient was taken for exploratory laparotomy 06/29/2024 for repair serosal tears x2. IV fluids switched to Dextrose 5/water NA up to 149 and BS 68. Patient had pulled out his NG tube which was replaced under fluoroscopy, mild distention noted reporting having flatulence and bowel movement reported overnight, Tolerating TPN. Continue to encourage patient to get up and perform activity ordered PT/OT. reported he appeared more lethargic yesterday afternoon pain medication adjusted by surgery less lethargic today small bowel series showed persistent ileus versus small-bowel obstruction with contrast not having reach the distal most dilated loops . Patient was post-op day 7 and KUB which continued to show postoperative SBO. He had a repeat CT scan on 07/06/2024 which shown findings compatible with small bowel obstruction with transition point in the mid small bowel, small amount of ascites with mesenteric edema, small right pleural effusion with patchy bibasilar pulmonary consolidation. He was then taken to the OR on 07/06/[address] Shipman 4 lysis of adhesion with resection of the jejunal perforation with anastomosis. With wound vac placed. He had a small bowel series 07/15/2024 showed normal follow through. Patient passing gas and having BM's. * Diet advanced to soft diet * pain control * ambulate as tolerated * Antiemetics * Incentive spirometer * PT/OT * Continue serial KUB * Continue wound vac evaluation by surgery * No changes per Gen Surg * Attempt to advance diet as tolerated * Reducing TPN to 60/hr (2) Hypertension: Code(s): I10 - Essential (primary) hypertension Status: Acute Assessment and Plan: patient has been hypertensive systolics running between 180s to 160s. patient does not take any hypertensive medications at home will re-evaluate prior to discharge if patient will need oral antihypertensive medications at discharge after current acute issues are resolved. Transition to oral medications now that he is tolerating diet * Hydralazine 20 mg IV push as needed for systolics greater than 160 * episodes of tachycardia surgery added metoprolol IV push PRN * BP per unit protocol (3) Hypokalemia: Code(s): E87.6 - Hypokalemia Status: Acute Assessment and Plan: * Potassium 4.3 * Supplement * Keep K+ >4.0 (4) Chronic alcohol use: Code(s): F10.90 - Alcohol use, unspecified, uncomplicated Status: Chronic Assessment and Plan: Does not appear in withdrawal at this time will continue to monitor * Last drink 4/ * Thiamine, folic acid, and multi-vitamin * PPI daily * librium PRN * CIWA daily * Monitor and replenish electrolytes as needed (5) ORTEGA (acute kidney injury): Code(s): N17.9 - Acute kidney failure, unspecified Status: Resolved Assessment and Plan: * Acute kidney injury CR 1.98 POA since resolved with IV fluids (6) Hyponatremia: Code(s): E87.1 - Hypo-osmolality and hyponatremia Status: Resolved Assessment and Plan: * Resolved likely secondary to dehydration and ETOH abuse patient was initially 130 POA resolved with IV fluids * 129 on 07/20, likely secondary to Clinimix * Will supplement as needed (7) Hypernatremia: Code(s): E87.0 - Hyperosmolality and hypernatremia Status: Resolved Assessment and Plan: * Patient now with hypernatremia at 149 discussed with surgery we will switch his IV fluids to dextrose 5 and water follow-up BMP later on today Plan Code status: Full code per patient DVT prophylaxis: Lovenox Stress ulcer prophylaxis: Protonix 40 daily PT/OT notes: Ambulatory Disposition: Patient continues admission to the medical unit for further treatment small-bowel obstruction wound vac in place advancing diet to soft CC consulted to assist in rehab placement. Subjective Date/time seen: 07/19/24 07:04 Interval history: This is a 64-year-old male who presented to the ED with few days history of nausea vomiting and abdominal pain. He also reports not having bowel movement for past few days. Was found to has small-bowel obstruction underwent exploratory laparotomy in it colitis with repair of serosal tears 06/30/2024. He had a repeat CT scan on 07/06/2024 which shown findings compatible with small bowel obstruction with transition point in the mid small bowel, small amount of ascites with mesenteric edema, small right pleural effusion with patchy bibasilar pulmonary consolidation. He was then taken to the OR on 07/06/[address] Shipman 4 lysis of adhesion with resection of the jejunal perforation with anastomosis. 07/19/2024: Still attempting to progress nutrition and ambulation independence. And continues to work with PT OT it seems to be improving in that regard. Still struggling with p.o. intake of food, still on TPN supplementation. Will really push patient to increase p.o. intake over the next day with hopeful discharge within the next 24-72 hours. Review of Systems Review of Systems: - CONSTITUTIONAL: Denies weight loss, fe gorge and chills. - HEENT: Denies changes in vision and he aring - RESPIRATORY: Denies SOB and cough. - CV: Denies palpitations and CP. - GI: Reports abdominal pain, nausea, v omiting and denies diarrhea. - : Denies dysuria and urinary frequen cy. - MSK: Denies myalgia and joint pain. - SKIN: Denies rash and pruritus. - NEUROLOGICAL: Denies headache and sync ope. - PSYCHIATRIC: Denies recent changes in mood. Denies anxiety and depression. All systems reviewed & are unremarkable except as noted in HPI and below Exam Narrative: General: In no acute distress, cooperative, comfortable HEENT - normocephalic. Atraumatic. Pupils equal round and reactive. Extraocular motions intact. Sclera clear and anicteric. Cardiac: Normal S1 and S2. Normal sinus rhythm 80s to 90s, No murmur, gallops or friction rubs, peripheral pulses intact. Respiratory: Lungs clear to auscultation, no adventitious lung sounds, currently on room air Gastrointestinal: normal to inspection, abdominal tenderness, Soft to palpation : Eller catheter in place draining clear yellow urine Skin: Midline incision with wound vac in place SS drainage noted in container Neuro: Alert and oriented x3 Const: General: comfortable and no acute distress HENMT: Mouth: Yes moist mucous membranes Eyes: General: appearance normal, both eyes and all related structures Pupils: Equal, round and reactive pupils present Neck: Neck: supple and no JVD Resp: Effort & Inspection: normal respiratory effort Auscultation: clear to auscultation bilaterally Cardio: Rate: regular rate Rhythm: regular rhythm GI: Auscultation: abnormal bowel sounds (hypoactive) Other: Midline incision with wound vac in place Skin: General skin exam: normal color Neuro: General: gait normal Cranial nerves: Yes Equal, round and reactive pupils present Speech: normal speech Extrem: General: normal to inspection Psych: Mental Status: mental status grossly normal Affect: normal affect Objective Data Vital Signs Vital Signs: Vital Signs - 24 hr 07/18/24 08:00 07/18/24 08:00 07/18/24 08:00 Temperature 97.5 F L Pulse Rate 87 90 Respiratory Rate 18 Blood Pressure 148/81 H Pulse Oximetry 97 Oxygen Delivery Room Air 07/18/24 08:34 07/18/24 12:00 07/18/24 12:00 Temperature 96.7 F L Pulse Rate 82 95 91 Respiratory Rate 20 Blood Pressure 152/83 H Pulse Oximetry 98 Oxygen Delivery 07/18/24 16:00 07/18/24 16:00 07/18/24 20:00 Temperature 96.7 F L 98.0 F Pulse Rate 91 88 91 Respiratory Rate 20 13 Blood Pressure 142/74 H 135/75 Pulse Oximetry 95 97 Oxygen Delivery 07/18/24 20:00 07/18/24 20:00 07/18/24 23:48 Temperature 97.2 F L Pulse Rate 86 86 Respiratory Rate 12 Blood Pressure 149/78 H Pulse Oximetry 94 Oxygen Delivery Room Air 07/19/24 00:00 07/19/24 04:00 07/19/24 04:00 Temperature 97.4 F L Pulse Rate 79 83 92 Respiratory Rate 12 Blood Pressure 136/76 Pulse Oximetry 96 Oxygen Delivery Intake/Output Intake/Output: Intake & Output 07/16/24 07/17/24 07/18/24 07/19/24 23:59 23:59 23:59 23:59 Intake Total 2302.5 2405.0 3252.7 Output Total 5906 288 5909 50 Balance 752.5 1655.0 352.7 -50 Meds/Results Medications: Active Medications Generic Name Dose Route Start Last Admin Trade Name Freq PRN Reason Stop Dose Admin Acetaminophen 650 mg 07/15/24 15:21 Acetaminophen 325 Mg Tablet PO Q6H PRN Mild Pain (1-3) or Fever Alteplase, Recombinant 2 mg 07/11/24 05:49 07/13/24 06:09 Alteplase 2 Mg Vial (Cathflo) IV PUSH 2 mg ONCE PRN Administration Line Occlusion Dextrose 12.5 gm 07/02/24 13:59 Dextrose 50% 25 Gm/50 Ml Syringe IV PUSH PRN PRN Hypoglycemia Protocol Enoxaparin Sodium 40 mg 06/29/24 09:00 07/18/24 08:34 Enoxaparin 40 Mg/0.4 Ml Syringe SUB-Q 40 mg DAILY VANDANA Administration Glucagon 1 mg 07/02/24 13:59 Glucagon For Inj 1 Mg Vial IM PRN PRN Hypoglycemia Protocol Glucose 15 gm 07/02/24 13:59 Glucose Oral Gel 15 Gm Of Glucse In 37.5 Gm Tube PO PRN PRN Hypoglycemia Protocol Hydralazine HCl 20 mg 07/02/24 10:27 07/14/24 05:17 Hydralazine Hcl 20 Mg/Ml Vial IV PUSH 20 mg Q6H PRN Administration Hypertension Dextrose 1,000 mls @ 100 mls/hr 07/02/24 13:59 Dextrose 5% 1,000 Ml IVPB PRN PRN Hypoglycemia Protocol Dextrose 1,000 mls @ 50 mls/hr 07/13/24 08:07 Dextrose 10% IV CONT .Q20H PRN if PN is interrupted Multivitamins 1.25 ml/ 1,002.5 mls @ 70 mls/hr 07/13/24 09:30 07/18/24 22:16 Multivitamins 1.25 ml/ Amino IV CONT 70 mls/hr Acids/Electrolytes/Dextrose .[id number] VANDANA Administration Protocol Fat Emulsion Intravenous 250 mls @ 20.833 mls/hr 07/13/24 09:30 07/18/24 20:34 Lipids 20% IVPB Infused Q24H VANDANA Infusion Metoprolol Succinate 25 mg 07/16/24 09:00 07/18/24 08:34 Metoprolol Succinate Ext Rel 25 Mg Tabcr PO 25 mg QAM VANDANA Administration Naloxone HCl 0.1 mg 07/06/24 18:50 Naloxone Hcl 0.4 Mg/Ml Vial IV PUSH Q2M PRN Opiate Reversal Ondansetron HCl 4 mg 06/27/24 08:21 07/12/24 10:06 Ondansetron Inj 4 Mg/2 Ml Vial IV PUSH 4 mg Q4H PRN Administration Nausea Pantoprazole Sodium 40 mg 07/16/24 09:00 07/18/24 08:34 Pantoprazole 40 Mg Tablet PO 40 mg QAM VANDANA Administration Potassium Chloride 40 meq 07/11/24 11:50 07/18/24 17:33 Potassium Chloride 20 Meq Packet (For Liquid) PO 40 meq BID VANDANA Administration Sodium Bicarbonate 650 mg 07/10/24 17:00 07/18/24 17:33 Sodium Bicarbonate Tab 650 Mg Tablet PO 650 mg BID VANDANA Administration Sodium Chloride 10 ml 07/02/24 22:00 07/19/24 06:04 Central Line Flush IV PUSH 10 ml Q8HR VANDANA Administration Sodium Chloride 10 ml 07/02/24 15:38 07/04/24 14:13 Central Line Flush IV PUSH 10 ml PRN PRN Administration with TPN bag changes Sodium Chloride 20 ml 07/02/24 15:38 Central Line Flush IV PUSH PRN PRN after blood draws Thiamine HCl 100 mg 07/16/24 09:00 07/18/24 08:34 Thiamine Hcl 100 Mg Tablet PO 100 mg QAM VANDANA Administration Radiology Results: ITS Impressions Chest/Abdomen/Pelvis CTA 06/27/24 06:17 IMPRESSION: CHEST: 1. No pulmonary embolism. No aortic dissection 2. No acute cardiopulmonary pathology. ABDOMEN/PELVIS: 1. Small bowel obstruction with the transition zone in the terminal ileum area. Clinical correlation advised. 2. No evidence of appendicitis, or diverticulitis. Head CT 06/27/24 06:59 IMPRESSION: No acute intracranial findings. Cervical Spine CT 06/27/24 07:58 IMPRESSION: No acute osseous abnormality cervical spine. Multilevel degenerative disc disease. NG Tube Placement 07/02/24 07:18 IMPRESSION: Fluoroscopy used during NG tube placement in the stomach. Abdomen/Pelvis CT 07/07/24 05:20 Impression: Small amount of pneumoperitoneum, likely postoperative with evidence of recent midline incision stapling since prior exam. Correlate with surgical history. Bowel distention/bowel obstruction is essentially resolved as compared to prior exam. Small bowel evaluation is limited on the current exam due to extensive matting together of bowel loops. Small amount of ascites. Small pleural effusions with bibasilar pulmonary edema/atelectasis versus pneumonia. Correlate clinically. Chest X-Ray 07/08/24 13:34 Impression: 1: Developing patchy bilateral airspace disease, compatible with pneumonia. Venous Doppler Study 07/09/24 00:02 IMPRESSION: Negative right upper extremity venous US. No deep vein thrombosis. Upper GI Series 07/09/24 13:13 IMPRESSION: 1. No bowel obstruction or ileus with normal small bowel transit time and normal caliber and mucosal fold pattern to the small bowel. Abdomen X-Ray 07/15/24 06:41 Impression: Small bowel obstruction. Small Bowel X-Ray 07/15/24 12:57 IMPRESSION: 1. Normal small bowel follow-through. Labs Labs: Laboratory Results - last 24 hr 07/18/24 07/18/24 07/18/24 06:08 11:40 17:42 WBC RBC Hgb Hct MCV MCH MCHC RDW Plt Count MPV Immature Gran % (Auto) Neut % (Auto) Lymph % (Auto) [place] % (Auto) Eos % (Auto) Baso % (Auto) Lymph # (Auto) [place] # (Auto) Eos # (Auto) Baso # (Auto) Abs Immat Gran (auto) Absolute Neuts (auto) Absolute Nucleated RBC Nucleated RBC % PT INR APTT Sodium Potassium Chloride Carbon Dioxide Anion Gap BUN Creatinine Estim Creat Clear Calc Estimated GFR Glucose POC Capillary Glucose 115 H 127 H Calcium Phosphorus Magnesium Transferrin Total Bilirubin AST ALT Alkaline Phosphatase Total Protein Albumin Triglycerides 163 H 07/18/24 07/19/24 07/19/24 23:41 05:07 06:15 WBC 9.3 RBC 3.13 L Hgb 9.6 L Hct 29.5 L MCV 94.2 MCH 30.7 MCHC 32.5 RDW 13.8 Plt Count 408 H MPV 9.9 Immature Gran % (Auto) 1.0 H Neut % (Auto) 66.1 Lymph % (Auto) 18.5 [place] % (Auto) 10.7 H Eos % (Auto) 2.7 Baso % (Auto) 1.0 Lymph # (Auto) 1.72 [place] # (Auto) 1.0 H Eos # (Auto) 0.3 Baso # (Auto) 0.1 Abs Immat Gran (auto) 0.09 H Absolute Neuts (auto) 6.2 Absolute Nucleated RBC 0.000 Nucleated RBC % 0.0 PT 13.3 INR 1.0 APTT 28.2 Sodium 129 L Potassium 4.3 Chloride 100 Carbon Dioxide 27 Anion Gap 2 L BUN 13 Creatinine 0.67 L Estim Creat Clear Calc 90 Estimated GFR > 60 Glucose 100 POC Capillary Glucose 116 H 126 H Calcium 7.8 L Phosphorus 3.8 Magnesium 1.9 Transferrin 133 L Total Bilirubin 0.3 AST 28 ALT 13 Alkaline Phosphatase 97 Total Protein 6.0 L Albumin 2.5 L Triglycerides
[2024-07-19 08:00] VITALS: PULSE 80
[2024-07-19] MEDS: THIAMINE HCL 100 MG TABLET PO (08:50)
[2024-07-19] MEDS: POTASSIUM CHLORIDE 20 MEQ PACKET (FOR LIQUID) 40 MEQ PO (08:50)
[2024-07-19] MEDS: ENOXAPARIN 40 MG/0.4 ML SYRINGE SUB-Q (08:50)
[2024-07-19] MEDS: PANTOPRAZOLE 40 MG TABLET PO (08:50)
[2024-07-19] MEDS: METOPROLOL SUCCINATE EXT REL 25 MG TABCR PO (08:50)
[2024-07-19] MEDS: SODIUM BICARBONATE TAB 650 MG TABLET PO ×2 (08:50→16:53)
[2024-07-19] MEDS: FAT EMULSIONS IV 20% 250 ML 20.83 ML IVPB (09:22)
[2024-07-19] MEDS: AMINO ACIDS 5%/D15W/E-LYTES/CA 1,000 ML with MULTIVITAMINS-12 INJ VIAL 1 1.25 ML, MULTI... 70 ML IV CONT (09:22)
[2024-07-19 11:37] LABS: Glucose Point of Care 114 mg/dl (65-105)
[2024-07-19 11:54] VITALS: BP 154/74; PULSE 95; RESP 14; TEMP 36.6; O2SAT 96
--- NOTE | 2024-07-19 12:17 | P.PNGS_ITS ---
Progress Note: A&P Assessment and Plan (1) Small bowel obstruction: Code(s): K56.609 - Unspecified intestinal obstruction, unspecified as to partial versus complete obstruction Status: Acute Assessment and Plan: 13 days s/p reoperation for sbo, sb resection. Good bowel sounds and having BM's. Eating and appetite still marginal. Eats well one day, then very little the next. No sign recurrent sbo at this point. (2) Open abdominal incision with drainage: Qualifiers: Encounter type: subsequent encounter Qualified Code(s): T81.321D - Disruption or dehiscence of closure of internal operation (surgical) wound of abdominal wall muscle or fascia, subsequent encounter Code(s): T81.321A - Disruption or dehiscence of closure of internal operation (surgical) wound of abdominal wall muscle or fascia, initial encounter Status: Chronic Assessment and Plan: Granulating and healing well with wound vac therapy. Vac changed today. (3) Protein-calorie malnutrition, severe: Code(s): E43 - Unspecified severe protein-calorie malnutrition Status: Acute Assessment and Plan: Continue TPN for now, decrease rate to 60/hr. Sodium low, likely due to Clinimix. (4) Altered mental status: Code(s): R41.82 - Altered mental status, unspecified Status: Acute Assessment and Plan: Continues to improve. (5) Chronic alcohol use: Code(s): F10.90 - Alcohol use, unspecified, uncomplicated Status: Chronic Subjective Subjective Date/Time Seen: 07/19/24 12:17 Post Op day: #13 Patient reports: no new complaints, bowel movement and afebrile Interval history: appetite still poor, eats pretty well about every other day. Wound painful with wound vac change. Some stool incontinence this morning. Exam Const: General: cooperative, comfortable, awake and thin GI: Inspection: non-distended, incision (vac changed, pink and granulating, healing well) and scaphoid GI Palp: Yes Soft to palpation, Yes Tenderness to palpation present (GI) (mild ), No Hernia present and No Palpable mass present Auscultation: normoactive bowel sounds Urinary Catheter: Urinary Catheter: patent and draining and urine cloudy Objective Data Vital Signs Vital Signs: Vital Signs - 24 hr 07/18/24 16:00 07/18/24 16:00 07/18/24 20:00 Temperature 35.9 C L 36.7 C Pulse Rate 91 88 91 Respiratory Rate 20 13 Blood Pressure 142/74 H 135/75 Pulse Oximetry 95 97 Oxygen Delivery 07/18/24 20:00 07/18/24 20:00 07/18/24 23:48 Temperature 36.2 C L Pulse Rate 86 86 Respiratory Rate 12 Blood Pressure 149/78 H Pulse Oximetry 94 Oxygen Delivery Room Air 07/19/24 00:00 07/19/24 04:00 07/19/24 04:00 Temperature 36.3 C L Pulse Rate 79 83 92 Respiratory Rate 12 Blood Pressure 136/76 Pulse Oximetry 96 Oxygen Delivery 07/19/24 08:00 07/19/24 08:00 07/19/24 11:54 Temperature 36.6 C Pulse Rate 80 95 Respiratory Rate 14 Blood Pressure 154/74 H Pulse Oximetry 96 Oxygen Delivery Room Air Intake/Output Intake/Output: Intake & Output 07/16/24 07/17/24 07/18/24 07/19/24 23:59 23:59 23:59 23:59 Intake Total 2302.5 2405.0 3252.7 777 Output Total 2945 127 1313 50 Balance 752.5 1655.0 352.7 727 Meds/Results Medications: Active Medications Generic Name Dose Route Start Last Admin Trade Name Freq PRN Reason Stop Dose Admin Acetaminophen 650 mg 07/15/24 15:21 Acetaminophen 325 Mg Tablet PO Q6H PRN Mild Pain (1-3) or Fever Alteplase, Recombinant 2 mg 07/11/24 05:49 07/13/24 06:09 Alteplase 2 Mg Vial (Cathflo) IV PUSH 2 mg ONCE PRN Administration Line Occlusion Dextrose 12.5 gm 07/02/24 13:59 Dextrose 50% 25 Gm/50 Ml Syringe IV PUSH PRN PRN Hypoglycemia Protocol Enoxaparin Sodium 40 mg 06/29/24 09:00 07/19/24 08:50 Enoxaparin 40 Mg/0.4 Ml Syringe SUB-Q 40 mg DAILY VANDANA Administration Glucagon 1 mg 07/02/24 13:59 Glucagon For Inj 1 Mg Vial IM PRN PRN Hypoglycemia Protocol Glucose 15 gm 07/02/24 13:59 Glucose Oral Gel 15 Gm Of Glucse In 37.5 Gm Tube PO PRN PRN Hypoglycemia Protocol Hydralazine HCl 20 mg 07/02/24 10:27 07/14/24 05:17 Hydralazine Hcl 20 Mg/Ml Vial IV PUSH 20 mg Q6H PRN Administration Hypertension Dextrose 1,000 mls @ 100 mls/hr 07/02/24 13:59 Dextrose 5% 1,000 Ml IVPB PRN PRN Hypoglycemia Protocol Dextrose 1,000 mls @ 50 mls/hr 07/13/24 08:07 Dextrose 10% IV CONT .Q20H PRN if PN is interrupted Multivitamins 1.25 ml/ 1,002.5 mls @ 60 mls/hr 07/13/24 09:30 07/19/24 09:22 Multivitamins 1.25 ml/ Amino IV CONT 70 mls/hr Acids/Electrolytes/Dextrose .[id number] VANDANA Administration Protocol Fat Emulsion Intravenous 250 mls @ 20.833 mls/hr 07/13/24 09:30 07/19/24 09:22 Lipids 20% IVPB 20.83 mls/hr Q24H VANDANA Administration Metoprolol Succinate 25 mg 07/16/24 09:00 07/19/24 08:50 Metoprolol Succinate Ext Rel 25 Mg Tabcr PO 25 mg QAM VANDANA Administration Naloxone HCl 0.1 mg 07/06/24 18:50 Naloxone Hcl 0.4 Mg/Ml Vial IV PUSH Q2M PRN Opiate Reversal Ondansetron HCl 4 mg 06/27/24 08:21 07/12/24 10:06 Ondansetron Inj 4 Mg/2 Ml Vial IV PUSH 4 mg Q4H PRN Administration Nausea Pantoprazole Sodium 40 mg 07/16/24 09:00 07/19/24 08:50 Pantoprazole 40 Mg Tablet PO 40 mg QAM VANDANA Administration Potassium Chloride 40 meq 07/11/24 11:50 07/19/24 08:50 Potassium Chloride 20 Meq Packet (For Liquid) PO 40 meq BID VANDANA Administration Sodium Bicarbonate 650 mg 07/10/24 17:00 07/19/24 08:50 Sodium Bicarbonate Tab 650 Mg Tablet PO 650 mg BID VANDANA Administration Sodium Chloride 10 ml 07/02/24 22:00 07/19/24 06:04 Central Line Flush IV PUSH 10 ml Q8HR VANDANA Administration Sodium Chloride 10 ml 07/02/24 15:38 07/04/24 14:13 Central Line Flush IV PUSH 10 ml PRN PRN Administration with TPN bag changes Sodium Chloride 20 ml 07/02/24 15:38 Central Line Flush IV PUSH PRN PRN after blood draws Thiamine HCl 100 mg 07/16/24 09:00 07/19/24 08:50 Thiamine Hcl 100 Mg Tablet PO 100 mg QAM VANDANA Administration Radiology Results: ITS Impressions Chest/Abdomen/Pelvis CTA 06/27/24 06:17 IMPRESSION: CHEST: 1. No pulmonary embolism. No aortic dissection 2. No acute cardiopulmonary pathology. ABDOMEN/PELVIS: 1. Small bowel obstruction with the transition zone in the terminal ileum area. Clinical correlation advised. 2. No evidence of appendicitis, or diverticulitis. Head CT 06/27/24 06:59 IMPRESSION: No acute intracranial findings. Cervical Spine CT 06/27/24 07:58 IMPRESSION: No acute osseous abnormality cervical spine. Multilevel degenerative disc disease. NG Tube Placement 07/02/24 07:18 IMPRESSION: Fluoroscopy used during NG tube placement in the stomach. Abdomen/Pelvis CT 07/07/24 05:20 Impression: Small amount of pneumoperitoneum, likely postoperative with evidence of recent midline incision stapling since prior exam. Correlate with surgical history. Bowel distention/bowel obstruction is essentially resolved as compared to prior exam. Small bowel evaluation is limited on the current exam due to extensive matting together of bowel loops. Small amount of ascites. Small pleural effusions with bibasilar pulmonary edema/atelectasis versus pneumonia. Correlate clinically. Chest X-Ray 07/08/24 13:34 Impression: 1: Developing patchy bilateral airspace disease, compatible with pneumonia. Venous Doppler Study 07/09/24 00:02 IMPRESSION: Negative right upper extremity venous US. No deep vein thrombosis. Upper GI Series 07/09/24 13:13 IMPRESSION: 1. No bowel obstruction or ileus with normal small bowel transit time and normal caliber and mucosal fold pattern to the small bowel. Abdomen X-Ray 07/15/24 06:41 Impression: Small bowel obstruction. Small Bowel X-Ray 07/15/24 12:57 IMPRESSION: 1. Normal small bowel follow-through. Labs Labs: Laboratory Results - last 24 hr 07/18/24 07/18/24 07/19/24 17:42 23:41 05:07 WBC RBC Hgb Hct MCV MCH MCHC RDW Plt Count MPV Immature Gran % (Auto) Neut % (Auto) Lymph % (Auto) [place] % (Auto) Eos % (Auto) Baso % (Auto) Lymph # (Auto) [place] # (Auto) Eos # (Auto) Baso # (Auto) Abs Immat Gran (auto) Absolute Neuts (auto) Absolute Nucleated RBC Nucleated RBC % PT INR APTT Sodium Potassium Chloride Carbon Dioxide Anion Gap BUN Creatinine Estim Creat Clear Calc Estimated GFR Glucose POC Capillary Glucose 127 H 116 H 126 H Calcium Phosphorus Magnesium Transferrin Total Bilirubin AST ALT Alkaline Phosphatase Total Protein Albumin 07/19/24 07/19/24 06:15 11:32 WBC 9.3 RBC 3.13 L Hgb 9.6 L Hct 29.5 L MCV 94.2 MCH 30.7 MCHC 32.5 RDW 13.8 Plt Count 408 H MPV 9.9 Immature Gran % (Auto) 1.0 H Neut % (Auto) 66.1 Lymph % (Auto) 18.5 [place] % (Auto) 10.7 H Eos % (Auto) 2.7 Baso % (Auto) 1.0 Lymph # (Auto) 1.72 [place] # (Auto) 1.0 H Eos # (Auto) 0.3 Baso # (Auto) 0.1 Abs Immat Gran (auto) 0.09 H Absolute Neuts (auto) 6.2 Absolute Nucleated RBC 0.000 Nucleated RBC % 0.0 PT 13.3 INR 1.0 APTT 28.2 Sodium 129 L Potassium 4.3 Chloride 100 Carbon Dioxide 27 Anion Gap 2 L BUN 13 Creatinine 0.67 L Estim Creat Clear Calc 90 Estimated GFR > 60 Glucose 100 POC Capillary Glucose 114 H Calcium 7.8 L Phosphorus 3.8 Magnesium 1.9 Transferrin 133 L Total Bilirubin 0.3 AST 28 ALT 13 Alkaline Phosphatase 97 Total Protein 6.0 L Albumin 2.5 L
[2024-07-19] MEDS: SODIUM CHLORIDE 1 GM TABLET PO (13:01)
[2024-07-19] MEDS: ALTEPLASE 2 MG VIAL (CATHFLO) IV PUSH (14:48)
[2024-07-19 16:00] VITALS: BP 144/75; PULSE 100; RESP 14; TEMP 37.3; O2SAT 95
[2024-07-19 19:01] LABS: Glucose Point of Care 99 mg/dl (65-105)
[2024-07-19 20:00] VITALS: BP 168/79; PULSE 99; RESP 18; TEMP 37.3; O2SAT 94
[2024-07-19 23:44] LABS: Glucose Point of Care 99 mg/dl (65-105)
[2024-07-20] VITALS (7 sets, daily range): BP systolic 133–156; BP diastolic 75–90; PULSE 76–107; RESP 16–18; TEMP 36–37; O2SAT 93–97
[2024-07-20 05:59] LABS: Glucose Point of Care 113 mg/dl (65-105)
[2024-07-20 06:00] LABS: Basophils Absolute Auto 0.1 K/mm3 (0.0-0.1); Basophils Percent Auto 0.9 % (0.2-1.2); Eosinophils Absolute Auto 0.2 K/mm3 (0-0.3); Eosinophils Percent Auto 2.5 % (0-4.4); Hematocrit 29.8 % (42.0-52.0); Hemoglobin 9.6 g/dL (14.0-18.0); Immature Granulocyte Absolute 0.08 K/mm3 (0.00-0.031); Immature Granulocyte Percent A 0.9 % (0-0.5); Lymphocytes Absolute Auto 1.48 K/mm3 (0.9-3.2); Mean Corpuscular HGB Conc 32.2 g/dl (32-36); Mean Corpuscular Hemoglobin 30.5 pg (26-34); Mean Corpuscular Volume 94.6 fl (80-100); Mean Platelet Volume 10.1 fl (7.4-10.4); Monocytes Percent Auto 10.4 % (2.6-8.5); Neutrophils Absolute Auto 6.4 K/mm3 (1.3-6.7); Neutrophils Percent Auto 69.3 % (45.5-73.1); Platelet Count Result 360 k/mm3 (150-375); Red Blood Count 3.15 M/mm3 (4.6-6.20); Red Cell Distribution Width 13.7 % (11.5-14.5); White Blood Count 9.3 K/mm3 (4.5-10.0)
[2024-07-20] MEDS: AMINO ACIDS 5%/D15W/E-LYTES/CA 1,000 ML with MULTIVITAMINS-12 INJ VIAL 1 1.25 ML, MULTI... 60 ML IV CONT ×2 (06:02→22:30)
[2024-07-20 06:12] LABS: Anion Gap 5 mmol/L (4-12); Blood Urea Nitrogen 11 mg/dL (9-20); Calcium 7.6 mg/dL (8.4-10.2); Carbon Dioxide 26 mmol/L (22-30); Chloride 99 mmol/L (98-107); Estimated CRCL calculation 94 ml/min; Estimated Glomerular Filt Rate > 60; Glucose 105 mg/dL (65-110); Phosphorus 3.8 mg/dL (2.5-4.5); Potassium 3.4 mmol/L (3.4-5.0); Sodium 130 mmol/L (137-145); Triglycerides 215 mg/dL (<150)
[2024-07-20 06:16] LABS: CRP 2.1 mg/dL (<1.0)
--- NOTE | 2024-07-20 07:58 | P.PNIM_ITS ---
Progress Note: A&P Assessment and Plan (1) Small bowel obstruction: Code(s): K56.609 - Unspecified intestinal obstruction, unspecified as to partial versus complete obstruction Status: Acute Assessment and Plan: Patient admitted after complaints of ABD pain with N/V. CT chest abdomen pelvis CTA was performed which showed no PE no aortic dissection. Abdomen pelvis showed small-bowel obstruction with the transition zone in the terminal ileum area. No evidence of appendicitis or diverticulitis. General surgery was consulted and patient was taken for exploratory laparotomy 06/29/2024 for repair serosal tears x2. IV fluids switched to Dextrose 5/water NA up to 149 and BS 68. Patient had pulled out his NG tube which was replaced under fluoroscopy, mild distention noted reporting having flatulence and bowel movement reported overnight, Tolerating TPN. Continue to encourage patient to get up and perform activity ordered PT/OT. reported he appeared more lethargic yesterday afternoon pain medication adjusted by surgery less lethargic today small bowel series showed persistent ileus versus small-bowel obstruction with contrast not having reach the distal most dilated loops . Patient was post-op day 7 and KUB which continued to show postoperative SBO. He had a repeat CT scan on 07/06/2024 which shown findings compatible with small bowel obstruction with transition point in the mid small bowel, small amount of ascites with mesenteric edema, small right pleural effusion with patchy bibasilar pulmonary consolidation. He was then taken to the OR on 07/06/[address] Shipman 4 lysis of adhesion with resection of the jejunal perforation with anastomosis. With wound vac placed. He had a small bowel series 07/15/2024 showed normal follow through. Patient passing gas and having BM's. * Diet advanced to soft diet * pain control * ambulate as tolerated * Antiemetics * Incentive spirometer * PT/OT * Continue serial KUB * Continue wound vac evaluation by surgery * No changes per Gen Surg * Attempt to advance diet as tolerated * Plan to continue to reduce TPN discontinued tomorrow without discharge tomorrow or the next day (2) Hypertension: Code(s): I10 - Essential (primary) hypertension Status: Acute Assessment and Plan: patient has been hypertensive systolics running between 180s to 160s. patient does not take any hypertensive medications at home will re-evaluate prior to d ischarge if patient will need oral antihypertensive medications at discharge after current acute issues are resolved. Transition to oral medications now that he is tolerating diet * Hydralazine 20 mg IV push as needed for systolics greater than 160 * episodes of tachycardia surgery added metoprolol IV push PRN * BP per unit protocol (3) Hypokalemia: Code(s): E87.6 - Hypokalemia Status: Acute Assessment and Plan: * Potassium 4.3 * Supplement * Keep K+ >4.0 (4) Chronic alcohol use: Code(s): F10.90 - Alcohol use, unspecified, uncomplicated Status: Chronic Assessment and Plan: Does not appear in withdrawal at this time will continue to monitor * Last drink 06/23 * Thiamine, folic acid, and multi-vitamin * PPI daily * librium PRN * CIWA daily * Monitor and replenish electrolytes as needed (5) ORTEGA (acute kidney injury): Code(s): N17.9 - Acute kidney failure, unspecified Status: Resolved Assessment and Plan: * Acute kidney injury CR 1.98 POA since resolved with IV fluids (6) Hyponatremia: Code(s): E87.1 - Hypo-osmolality and hyponatremia Status: Resolved Assessment and Plan: * Resolved likely secondary to dehydration and ETOH abuse patient was initially 130 POA resolved with IV fluids * 129 on 07/20, likely secondary to Clinimix * Will supplement as needed (7) Hypernatremia: Code(s): E87.0 - Hyperosmolality and hypernatremia Status: Resolved Assessment and Plan: * Patient now with hypernatremia at 149 discussed with surgery we will switch his IV fluids to dextrose 5 and water follow-up BMP later on today Plan Code status: Full code per patient DVT prophylaxis: Lovenox Stress ulcer prophylaxis: Protonix 40 daily PT/OT notes: Ambulatory Disposition: Patient continues admission to the medical unit for further treatment small-bowel obstruction wound vac in place advancing diet to soft CC consulted to assist in rehab placement. Time Spent With Patient Time: Subjective Date/time seen: 07/20/24 07:58 Interval history: This is a 64-year-old male who presented to the ED with few days history of nausea vomiting and abdominal pain. He also reports not having bowel movement f or past few days. Was found to has small-bowel obstruction underwent exploratory laparotomy in it colitis with repair of serosal tears 06/30/2024. He had a repeat CT scan on 07/06/2024 which shown findings compatible with small bowel obstruction with transition point in the mid small bowel, small amount of ascites with mesenteric edema, small right pleural effusion with patchy bibasilar pulmonary consolidation. He was then taken to the OR on 07/06/[address] Umberto Betancur lysis of adhesion with resection of the jejunal perforation with anastomosis. 07/20/2024: Patient sitting in chair at bedside at time of examination. Continues to deny any shortness of breath, chest pain, nausea/vomiting. Still has some continued abdominal discomfort at the surgical site but otherwise states he feels fine. Denies surgeries total following, managing his nutrition/TPN. Plan to decrease or discontinue TPN tomorrow with hopeful discharge tomorrow or the next day. Review of Systems Review of Systems: - CONSTITUTIONAL: Denies weight loss, fe gorge and chills. - HEENT: Denies changes in vision and he aring - RESPIRATORY: Denies SOB and cough. - CV: Denies palpitations and CP. - GI: Reports abdominal pain, nausea, v omiting and denies diarrhea. - : Denies dysuria and urinary frequen cy. - MSK: Denies myalgia and joint pain. - SKIN: Denies rash and pruritus. - NEUROLOGICAL: Denies headache and sync ope. - PSYCHIATRIC: Denies recent changes in mood. Denies anxiety and depression. All systems reviewed & are unremarkable except as noted in HPI and below Exam Narrative: General: In no acute distress, cooperative, comfortable HEENT - normocephalic. Atraumatic. Pupils equal round and reactive. Extraocular motions intact. Sclera clear and anicteric. Cardiac: Normal S1 and S2. Normal sinus rhythm 80s to 90s, No murmur, gallops or friction rubs, peripheral pulses intact. Respiratory: Lungs clear to auscultation, no adventitious lung sounds, currently on room air Gastrointestinal: normal to inspection, abdominal tenderness, Soft to palpation : Eller catheter in place draining clear yellow urine Skin: Midline incision with wound vac in place SS drainage noted in container Neuro: Alert and oriented x3 Const: General: comfortable and no acute distress HENMT: Mouth: Yes moist mucous membranes Eyes: General: appearance normal, both eyes and all related structures Pupils: Equal, round and reactive pupils present Neck: Neck: supple and no JVD Resp: Effort & Inspection: normal respiratory effort Auscultation: clear to auscultation bilaterally Cardio: Rate: regular rate Rhythm: regular rhythm GI: Auscultation: abnormal bowel sounds (hypoactive) Other: Midline incision with wound vac in place Skin: General skin exam: normal color Neuro: General: gait normal Cranial nerves: Yes Equal, round and reactive pupils present Speech: normal speech Extrem: General: normal to inspection Psych: Mental Status: mental status grossly normal Affect: normal affect Objective Data Vital Signs Vital Signs: Vital Signs - 24 hr 07/19/24 08:00 07/19/24 08:00 07/19/24 11:54 Temperature 98 F Pulse Rate 80 95 Respiratory Rate 14 Blood Pressure 154/74 H Pulse Oximetry 96 Oxygen Delivery Room Air 07/19/24 16:00 07/19/24 20:00 07/19/24 20:33 Temperature 99.2 F 99.1 F Pulse Rate 100 99 Respiratory Rate 14 18 Blood Pressure 144/75 H 168/79 H Pulse Oximetry 95 94 Oxygen Delivery Room Air 07/20/24 00:00 07/20/24 04:00 07/20/24 07:55 Temperature 97.7 F 98.6 F 96.8 F L Pulse Rate 97 88 89 Respiratory Rate 16 16 16 Blood Pressure 141/81 H 150/90 H 150/86 H Pulse Oximetry 93 95 97 Oxygen Delivery Intake/Output Intake/Output: Intake & Output 07/17/24 07/18/24 07/19/24 07/20/24 23:59 23:59 23:59 23:59 Intake Total 2405.0 3252.7 1286 943.5 Output Total 750 2900 1700 500 Balance 1655.0 352.7 -414 443.5 Meds/Results Medications: Active Medications Generic Name Dose Route Start Last Admin Trade Name Freq PRN Reason Stop Dose Admin Acetaminophen 650 mg 07/15/24 15:21 Acetaminophen 325 Mg Tablet PO Q6H PRN Mild Pain (1-3) or Fever Alteplase, Recombinant 2 mg 07/11/24 05:49 07/19/24 14:48 Alteplase 2 Mg Vial (Cathflo) IV PUSH 2 mg ONCE PRN Administration Line Occlusion Dextrose 12.5 gm 07/02/24 13:59 Dextrose 50% 25 Gm/50 Ml Syringe IV PUSH PRN PRN Hypoglycemia Protocol Enoxaparin Sodium 40 mg 06/29/24 09:00 07/19/24 08:50 Enoxaparin 40 Mg/0.4 Ml Syringe SUB-Q 40 mg DAILY VANDANA Administration Glucagon 1 mg 07/02/24 13:59 Glucagon For Inj 1 Mg Vial IM PRN PRN Hypoglycemia Protocol Glucose 15 gm 07/02/24 13:59 Glucose Oral Gel 15 Gm Of Glucse In 37.5 Gm Tube PO PRN PRN Hypoglycemia Protocol Hydralazine HCl 20 mg 07/02/24 10:27 07/14/24 05:17 Hydralazine Hcl 20 Mg/Ml Vial IV PUSH 20 mg Q6H PRN Administration Hypertension Dextrose 1,000 mls @ 100 mls/hr 07/02/24 13:59 Dextrose 5% 1,000 Ml IVPB PRN PRN Hypoglycemia Protocol Dextrose 1,000 mls @ 50 mls/hr 07/13/24 08:07 Dextrose 10% IV CONT .Q20H PRN if PN is interrupted Multivitamins 1.25 ml/ 1,002.5 mls @ 60 mls/hr 07/13/24 09:30 07/20/24 06:02 Multivitamins 1.25 ml/ Amino IV CONT 60 mls/hr Acids/Electrolytes/Dextrose .[id number] VANDANA Administration Protocol Fat Emulsion Intravenous 250 mls @ 20.833 mls/hr 07/13/24 09:30 07/19/24 21:23 Lipids 20% IVPB Infused Q24H VANDANA Infusion Metoprolol Succinate 25 mg 07/16/24 09:00 07/19/24 08:50 Metoprolol Succinate Ext Rel 25 Mg Tabcr PO 25 mg QAM VANDANA Administration Naloxone HCl 0.1 mg 07/06/24 18:50 Naloxone Hcl 0.4 Mg/Ml Vial IV PUSH Q2M PRN Opiate Reversal Ondansetron HCl 4 mg 06/27/24 08:21 07/12/24 10:06 Ondansetron Inj 4 Mg/2 Ml Vial IV PUSH 4 mg Q4H PRN Administration Nausea Pantoprazole Sodium 40 mg 07/16/24 09:00 07/19/24 08:50 Pantoprazole 40 Mg Tablet PO 40 mg QAM VANDANA Administration Potassium Chloride 40 meq 07/11/24 11:50 07/19/24 16:53 Potassium Chloride 20 Meq Packet (For Liquid) PO Not Given BID VANDANA Sodium Bicarbonate 650 mg 07/10/24 17:00 07/19/24 16:53 Sodium Bicarbonate Tab 650 Mg Tablet PO 650 mg BID VANDANA Administration Sodium Chloride 10 ml 07/02/24 22:00 07/19/24 22:44 Central Line Flush IV PUSH 10 ml Q8HR VANDANA Administration Sodium Chloride 10 ml 07/02/24 15:38 07/04/24 14:13 Central Line Flush IV PUSH 10 ml PRN PRN Administration with TPN bag changes Sodium Chloride 20 ml 07/02/24 15:38 Central Line Flush IV PUSH PRN PRN after blood draws Thiamine HCl 100 mg 07/16/24 09:00 07/19/24 08:50 Thiamine Hcl 100 Mg Tablet PO 100 mg QAM VANDANA Administration Radiology Results: ITS Impressions Chest/Abdomen/Pelvis CTA 06/27/24 06:17 IMPRESSION: CHEST: 1. No pulmonary embolism. No aortic dissection 2. No acute cardiopulmonary pathology. ABDOMEN/PELVIS: 1. Small bowel obstruction with the transition zone in the terminal ileum area. Clinical correlation advised. 2. No evidence of appendicitis, or diverticulitis. Head CT 06/27/24 06:59 IMPRESSION: No acute intracranial findings. Cervical Spine CT 06/27/24 07:58 IMPRESSION: No acute osseous abnormality cervical spine. Multilevel degenerative disc disease. NG Tube Placement 07/02/24 07:18 IMPRESSION: Fluoroscopy used during NG tube placement in the stomach. Abdomen/Pelvis CT 07/07/24 05:20 Impression: Small amount of pneumoperitoneum, likely postoperative with evidence of recent midline incision stapling since prior exam. Correlate with surgical history. Bowel distention/bowel obstruction is essentially resolved as compared to prior exam. Small bowel evaluation is limited on the current exam due to extensive matting together of bowel loops. Small amount of ascites. Small pleural effusions with bibasilar pulmonary edema/atelectasis versus p neumonia. Correlate clinically. Chest X-Ray 07/08/24 13:34 Impression: 1: Developing patchy bilateral airspace disease, compatible with pneumonia. Venous Doppler Study 07/09/24 00:02 IMPRESSION: Negative right upper extremity venous US. No deep vein thrombosis. Upper GI Series 07/09/24 13:13 IMPRESSION: 1. No bowel obstruction or ileus with normal small bowel transit time and normal caliber and mucosal fold pattern to the small bowel. Abdomen X-Ray 07/15/24 06:41 Impression: Small bowel obstruction. Small Bowel X-Ray 07/15/24 12:57 IMPRESSION: 1. Normal small bowel follow-through. Labs Labs: Laboratory Results - last 24 hr 07/19/24 07/19/24 07/19/24 11:32 18:59 23:42 WBC RBC Hgb Hct MCV MCH MCHC RDW Plt Count MPV Immature Gran % (Auto) Neut % (Auto) Lymph % (Auto) [place] % (Auto) Eos % (Auto) Baso % (Auto) Lymph # (Auto) [place] # (Auto) Eos # (Auto) Baso # (Auto) Abs Immat Gran (auto) Absolute Neuts (auto) Absolute Nucleated RBC Nucleated RBC % Sodium Potassium Chloride Carbon Dioxide Anion Gap BUN Creatinine Estim Creat Clear Calc Estimated GFR Glucose POC Capillary Glucose 114 H 99 99 Calcium Phosphorus C-Reactive Protein Triglycerides 07/20/24 07/20/24 05:39 05:55 WBC 9.3 RBC 3.15 L Hgb 9.6 L Hct 29.8 L MCV 94.6 MCH 30.5 MCHC 32.2 RDW 13.7 Plt Count 360 MPV 10.1 Immature Gran % (Auto) 0.9 H Neut % (Auto) 69.3 Lymph % (Auto) 16.0 L [place] % (Auto) 10.4 H Eos % (Auto) 2.5 Baso % (Auto) 0.9 Lymph # (Auto) 1.48 [place] # (Auto) 1.0 H Eos # (Auto) 0.2 Baso # (Auto) 0.1 Abs Immat Gran (auto) 0.08 H Absolute Neuts (auto) 6.4 Absolute Nucleated RBC 0.000 Nucleated RBC % 0.0 Sodium 130 L Potassium 3.4 Chloride 99 Carbon Dioxide 26 Anion Gap 5 BUN 11 Creatinine 0.64 L Estim Creat Clear Calc 94 Estimated GFR > 60 Glucose 105 POC Capillary Glucose 113 H Calcium 7.6 L Phosphorus 3.8 C-Reactive Protein 2.1 H Triglycerides 215 H Quality VTE Prophylaxis VTE prophylaxis: pharmacologic ordered
[2024-07-20] MEDS: METOPROLOL SUCCINATE EXT REL 25 MG TABCR PO (09:13)
[2024-07-20] MEDS: POTASSIUM CHLORIDE 20 MEQ PACKET (FOR LIQUID) 40 MEQ PO ×2 (09:13→17:35)
[2024-07-20] MEDS: SODIUM BICARBONATE TAB 650 MG TABLET PO ×2 (09:13→17:35)
[2024-07-20] MEDS: PANTOPRAZOLE 40 MG TABLET PO (09:13)
[2024-07-20] MEDS: THIAMINE HCL 100 MG TABLET PO (09:13)
[2024-07-20] MEDS: ENOXAPARIN 40 MG/0.4 ML SYRINGE SUB-Q (09:17)
[2024-07-20] MEDS: FAT EMULSIONS IV 20% 250 ML 20.8 ML IVPB (09:17)
--- NOTE | 2024-07-20 10:51 | PCNFU ---
Nutrition Follow-Up Complete: Inadequate energy intake related to small bowel obstruction as evidenced by NPO day 5 - Pt on TPN Goal:Meet estimated nutrition needs PO intake - pt meeting goal Pt current nutrition is TPN Clinimix E 08/05 @ 60ml/hr providing 1522kcals, 72g protein. Regular diet with Ensure Enlive TID. Nutrition recommendation: Encourage po intake of meals and supplements Last recorded weight is 79.1 kg. Bowel Motility: +BM 07/20 Labs Reviewed: Hgb:9.6, HCT:29.8, NA:130, Cr:0.64 Meds Noted: protonix, thiamin, lovenox, KCL Skin: wound vac to abdomen Additional Notes: Pt continues on TPN, regular diet now in place, pt reports he is trying to eat what he can but still not much of an appetite. Ensure on tray. Encouraged po intake. Monitoring orders, TPN tolerance, labs, weights, meds, output, plan of care Follow up Friday/Friday
[2024-07-20 11:45] LABS: Glucose Point of Care 127 mg/dl (65-105)
[2024-07-20] MEDS: CENTRAL LINE FLUSH 10 ML IV PUSH ×2 (15:00→22:42)
[2024-07-20 18:12] LABS: Glucose Point of Care 105 mg/dl (65-105)
[2024-07-21] VITALS: BP 171/91; PULSE 101; RESP 18; TEMP 37; O2SAT 96
[2024-07-21 00:10] LABS: Glucose Point of Care 117 mg/dl (65-105)
[2024-07-21 04:00] VITALS: BP 154/78; PULSE 88; RESP 20; TEMP 36.9; O2SAT 97
[2024-07-21] MEDS: CENTRAL LINE FLUSH 10 ML IV PUSH ×3 (07:33→20:23)
[2024-07-21 07:37] LABS: Basophils Absolute Auto 0.1 K/mm3 (0.0-0.1); Eosinophils Absolute Auto 0.2 K/mm3 (0-0.3); Eosinophils Percent Auto 2.6 % (0-4.4); Immature Granulocyte Absolute 0.05 K/mm3 (0.00-0.031); Immature Granulocyte Percent A 0.6 % (0-0.5); Lymphocytes Absolute Auto 1.49 K/mm3 (0.9-3.2); Lymphocytes Percent Auto 19.3 % (18.3-44.2); Mean Corpuscular HGB Conc 32.1 g/dl (32-36); Mean Corpuscular Hemoglobin 30.3 pg (26-34); Mean Corpuscular Volume 94.3 fl (80-100); Mean Platelet Volume 10.7 fl (7.4-10.4); Monocytes Absolute Auto 0.8 K/mm3 (0.1-0.6); Monocytes Percent Auto 10.6 % (2.6-8.5); Neutrophils Absolute Auto 5.1 K/mm3 (1.3-6.7); Neutrophils Percent Auto 65.9 % (45.5-73.1); Platelet Count Result 319 k/mm3 (150-375); Red Blood Count 2.97 M/mm3 (4.6-6.20); Red Cell Distribution Width 13.5 % (11.5-14.5); White Blood Count 7.7 K/mm3 (4.5-10.0)
[2024-07-21 07:48] LABS: Anion Gap 2 mmol/L (4-12); Blood Urea Nitrogen 10 mg/dL (9-20); Calcium 7.8 mg/dL (8.4-10.2); Carbon Dioxide 30 mmol/L (22-30); Chloride 98 mmol/L (98-107); Estimated CRCL calculation 95 ml/min; Estimated Glomerular Filt Rate > 60; Glucose 98 mg/dL (65-110); Potassium 3.3 mmol/L (3.4-5.0); Sodium 130 mmol/L (137-145)
[2024-07-21 08:00] VITALS: RESP 20; O2SAT 97
[2024-07-21] MEDS: ENOXAPARIN 40 MG/0.4 ML SYRINGE SUB-Q (09:30)
[2024-07-21] MEDS: POTASSIUM CHLORIDE 20 MEQ PACKET (FOR LIQUID) 40 MEQ PO ×2 (09:30→17:09)
[2024-07-21] MEDS: SODIUM BICARBONATE TAB 650 MG TABLET PO ×2 (09:31→17:09)
[2024-07-21] MEDS: PANTOPRAZOLE 40 MG TABLET PO (09:31)
[2024-07-21] MEDS: METOPROLOL SUCCINATE EXT REL 25 MG TABCR PO (09:31)
[2024-07-21] MEDS: THIAMINE HCL 100 MG TABLET PO (09:31)
--- NOTE | 2024-07-21 09:58 | P.PNIM_ITS ---
Progress Note: A&P Assessment and Plan (1) Small bowel obstruction: Code(s): K56.609 - Unspecified intestinal obstruction, unspecified as to partial versus complete obstruction Status: Acute Assessment and Plan: OR on 07/06/[address] Shipman 4 lysis of adhesion with resection of the jejunal perforation with anastomosis. With wound vac placed. He had a small bowel series 07/15/2024 showed normal follow through. Patient passing gas and having BM's. * Diet advanced to soft diet * pain control * ambulate as tolerated * Antiemetics * Incentive spirometer * PT/OT * Continue wound vac evaluation by surgery * Attempt to advance diet as tolerated * Plan to continue to reduce TPN discontinued tomorrow with discharge tomorrow or the next day Calorie count Megace added Encourage family to bring food from home that patient can chew (2) Hypertension: Code(s): I10 - Essential (primary) hypertension Status: Acute Assessment and Plan: patient has been hypertensive systolics running between 180s to 160s. patient does not take any hypertensive medications at home will re-evaluate prior to discharge if patient will need oral antihypertensive medications at discharge after current acute issues are resolved. Transition to oral medications now that he is tolerating diet * Hydralazine 20 mg IV push as needed for systolics greater than 160 * episodes of tachycardia surgery added metoprolol IV push PRN * BP per unit protocol (3) Hypokalemia: Code(s): E87.6 - Hypokalemia Status: Acute Assessment and Plan: Supplement as needed * Keep K+ >4.0 (4) Chronic alcohol use: Code(s): F10.90 - Alcohol use, unspecified, uncomplicated Status: Chronic Assessment and Plan: Stable Does not appear in withdrawal at this time will continue to monitor * Last drink 06/23 * Thiamine, folic acid, and multi-vitamin * PPI daily * librium PRN * CIWA daily * Monitor and replenish electrolytes as needed (5) ORTEGA (acute kidney injury): Code(s): N17.9 - Acute kidney failure, unspecified Status: Resolved Assessment and Plan: * Acute kidney injury CR 1.98 POA since resolved with IV fluids (6) Hyponatremia: Code(s): E87.1 - Hypo-osmolality and hyponatremia Status: Resolved Assessment and Plan: * Resolved likely secondary to dehydration and ETOH abuse patient was initially 130 POA resolved with IV fluids * 129 on 07/20, likely secondary to Clinimix * Will supplement as needed (7) Hypernatremia: Code(s): E87.0 - Hyperosmolality and hypernatremia Status: Resolved Assessment and Plan: * Patient now with hypernatremia at 149 discussed with surgery we will switch his IV fluids to dextrose 5 and water follow-up BMP later on today Plan Code status: Full code per patient DVT prophylaxis: Lovenox Stress ulcer prophylaxis: Protonix 40 daily PT/OT notes: Ambulatory Time Spent With Patient Time with patient: Greater than 35 minutes Subjective Date/time seen: 07/21/24 09:58 Interval history: This is a 64-year-old male who presented to the ED with few days history of nausea vomiting and abdominal pain. He also reports not having bowel movement for past few days. Was found to has small-bowel obstruction underwent exploratory laparotomy in it colitis with repair of serosal tears 06/30/2024. He had a repeat CT scan on 07/06/2024 which shown findings compatible with small bowel obstruction with transition point in the mid small bowel, small amount of ascites with mesenteric edema, small right pleural effusion with patchy bibasilar pulmonary consolidation. He was then taken to the OR on 07/06/[address] Shipman 4 lysis of adhesion with resection of the jejunal perforation with anastomosis. Patient trying to chew a hamburger with his gums having a very difficult time, encourage family to bring it in fluid for the patient to eat, discussed with surgery [facility] RN will add Megace and calorie count Review of Systems Review of Systems: All systems reviewed & are unremarkable except as noted in HPI and below Exam Narrative: General: Chronically ill appearing, appears older than stated age. HEENT: normocephalic, atraumatic. Mucous membranes moist. EOMI, PERRLA, bilateral sclera anicteric, no conjunctival injection. Neck supple without JVD, lymphadenopathy, or bruit. Respiratory: clear to ascultation bilaterally. No rales/rhonic/wheezes. Cardiovascular: Regular rate and rhythm, normal S1-S2 upon ascultation. No murmurs, rubs, or clicks. PMI is nondisplaced, capillary refill less than 3 second. Abdomen: Soft, round, no pulsatile masses, nondistended and nontender. No rebound, no guarding. No CVA tenderness, no hepatosplenomegaly. Wound VAC Extremities: No cyanosis, clubbing, or edema present. Pulses are palpable 2/2. Active ROM to all four extremities. Neuro: Alert and orientated x 4. PERRLA. Cranial nerves 2-12 intact without focal deficit. Skin: Warm, dry, and intact, without rash, erythema, or lesion. Psych: pleasant, cooperative, normal speech, normal affect, no hallucinations, no dysarthia Objective Data Vital Signs Vital Signs: Vital Signs - 24 hr 07/20/24 12:00 07/20/24 16:00 07/20/24 20:00 Temperature 97.1 F L 97.7 F 98.4 F Pulse Rate 107 H 106 H 101 H Respiratory Rate 16 16 18 Blood Pressure 133/77 156/84 H 149/75 H Pulse Oximetry 97 97 97 Oxygen Delivery Fraction of Inspired Oxygen 07/20/24 20:00 07/21/24 00:00 07/21/24 04:00 Temperature 98.6 F 98.5 F Pulse Rate 101 H 101 H 88 Respiratory Rate 18 18 20 Blood Pressure 171/91 H 154/78 H Pulse Oximetry 96 96 97 Oxygen Delivery Room Air Fraction of Inspired Oxygen 21 07/21/24 08:00 Temperature Pulse Rate Respiratory Rate 20 Blood Pressure Pulse Oximetry 97 Oxygen Delivery Room Air Fraction of Inspired Oxygen Intake/Output Intake/Output: Intake & Output 07/18/24 07/19/24 07/20/24 07/21/24 23:59 23:59 23:59 23:59 Intake Total 3252.7 1286 2256.0 Output Total 2900 1700 1350 850 Balance 352.7 -414 906.0 -850 Meds/Results Medications: Active Medications Generic Name Dose Route Start Last Admin Trade Name Freq PRN Reason Stop Dose Admin Acetaminophen 650 mg 07/15/24 15:21 Acetaminophen 325 Mg Tablet PO Q6H PRN Mild Pain (1-3) or Fever Alteplase, Recombinant 2 mg 07/11/24 05:49 07/19/24 14:48 Alteplase 2 Mg Vial (Cathflo) IV PUSH 2 mg ONCE PRN Administration Line Occlusion Dextrose 12.5 gm 07/02/24 13:59 Dextrose 50% 25 Gm/50 Ml Syringe IV PUSH PRN PRN Hypoglycemia Protocol Enoxaparin Sodium 40 mg 06/29/24 09:00 07/21/24 09:30 Enoxaparin 40 Mg/0.4 Ml Syringe SUB-Q 40 mg DAILY VANDANA Administration Glucagon 1 mg 07/02/24 13:59 Glucagon For Inj 1 Mg Vial IM PRN PRN Hypoglycemia Protocol Glucose 15 gm 07/02/24 13:59 Glucose Oral Gel 15 Gm Of Glucse In 37.5 Gm Tube PO PRN PRN Hypoglycemia Protocol Hydralazine HCl 20 mg 07/02/24 10:27 07/14/24 05:17 Hydralazine Hcl 20 Mg/Ml Vial IV PUSH 20 mg Q6H PRN Administration Hypertension Dextrose 1,000 mls @ 100 mls/hr 07/02/24 13:59 Dextrose 5% 1,000 Ml IVPB PRN PRN Hypoglycemia Protocol Dextrose 1,000 mls @ 50 mls/hr 07/13/24 08:07 Dextrose 10% IV CONT .Q20H PRN if PN is interrupted Multivitamins 1.25 ml/ 1,002.5 mls @ 60 mls/hr 07/13/24 09:30 07/20/24 22:30 Multivitamins 1.25 ml/ Amino IV CONT 60 mls/hr Acids/Electrolytes/Dextrose .[id number] VANDANA Administration Protocol Fat Emulsion Intravenous 250 mls @ 20.833 mls/hr 07/13/24 09:30 07/20/24 22:40 Lipids 20% IVPB Infused Q24H VANDANA Infusion Metoprolol Succinate 25 mg 07/16/24 09:00 07/21/24 09:31 Metoprolol Succinate Ext Rel 25 Mg Tabcr PO 25 mg QAM VANDANA Administration Naloxone HCl 0.1 mg 07/06/24 18:50 Naloxone Hcl 0.4 Mg/Ml Vial IV PUSH Q2M PRN Opiate Reversal Ondansetron HCl 4 mg 06/27/24 08:21 07/12/24 10:06 Ondansetron Inj 4 Mg/2 Ml Vial IV PUSH 4 mg Q4H PRN Administration Nausea Pantoprazole Sodium 40 mg 07/16/24 09:00 07/21/24 09:31 Pantoprazole 40 Mg Tablet PO 40 mg QAM VANDANA Administration Potassium Chloride 40 meq 07/11/24 11:50 07/21/24 09:30 Potassium Chloride 20 Meq Packet (For Liquid) PO 40 meq BID VANDANA Administration Sodium Bicarbonate 650 mg 07/10/24 17:00 07/21/24 09:31 Sodium Bicarbonate Tab 650 Mg Tablet PO 650 mg BID VANDANA Administration Sodium Chloride 10 ml 07/02/24 22:00 07/21/24 07:33 Central Line Flush IV PUSH 10 ml Q8HR VANDANA Administration Sodium Chloride 10 ml 07/02/24 15:38 07/04/24 14:13 Central Line Flush IV PUSH 10 ml PRN PRN Administration with TPN bag changes Sodium Chloride 20 ml 07/02/24 15:38 Central Line Flush IV PUSH PRN PRN after blood draws Thiamine HCl 100 mg 07/16/24 09:00 07/21/24 09:31 Thiamine Hcl 100 Mg Tablet PO 100 mg QAM VANDANA Administration Radiology Results: ITS Impressions Chest/Abdomen/Pelvis CTA 06/27/24 06:17 IMPRESSION: CHEST: 1. No pulmonary embolism. No aortic dissection 2. No acute cardiopulmonary pathology. ABDOMEN/PELVIS: 1. Small bowel obstruction with the transition zone in the terminal ileum area. Clinical correlation advised. 2. No evidence of appendicitis, or diverticulitis. Head CT 06/27/24 06:59 IMPRESSION: No acute intracranial findings. Cervical Spine CT 06/27/24 07:58 IMPRESSION: No acute osseous abnormality cervical spine. Multilevel degenerative disc disease. NG Tube Placement 07/02/24 07:18 IMPRESSION: Fluoroscopy used during NG tube placement in the stomach. Abdomen/Pelvis CT 07/07/24 05:20 Impression: Small amount of pneumoperitoneum, likely postoperative with evidence of recent midline incision stapling since prior exam. Correlate with surgical history. Bowel distention/bowel obstruction is essentially resolved as compared to prior exam. Small bowel evaluation is limited on the current exam due to extensive matting together of bowel loops. Small amount of ascites. Small pleural effusions with bibasilar pulmonary edema/atelectasis versus pneumonia. Correlate clinically. Chest X-Ray 07/08/24 13:34 Impression: 1: Developing patchy bilateral airspace disease, compatible with pneumonia. Venous Doppler Study 07/09/24 00:02 IMPRESSION: Negative right upper extremity venous US. No deep vein thrombosis. Upper GI Series 07/09/24 13:13 IMPRESSION: 1. No bowel obstruction or ileus with normal small bowel transit time and normal caliber and mucosal fold pattern to the small bowel. Abdomen X-Ray 07/15/24 06:41 Impression: Small bowel obstruction. Small Bowel X-Ray 07/15/24 12:57 IMPRESSION: 1. Normal small bowel follow-through. Labs Labs: Laboratory Results - last 24 hr 07/20/24 07/20/24 07/21/24 11:40 18:08 00:06 WBC RBC Hgb Hct MCV MCH MCHC RDW Plt Count MPV Immature Gran % (Auto) Neut % (Auto) Lymph % (Auto) [place] % (Auto) Eos % (Auto) Baso % (Auto) Lymph # (Auto) [place] # (Auto) Eos # (Auto) Baso # (Auto) Abs Immat Gran (auto) Absolute Neuts (auto) Absolute Nucleated RBC Nucleated RBC % Sodium Potassium Chloride Carbon Dioxide Anion Gap BUN Creatinine Estim Creat Clear Calc Estimated GFR Glucose POC Capillary Glucose 127 H 105 117 H Calcium 07/21/24 06:46 WBC 7.7 RBC 2.97 L Hgb 9.0 L Hct 28.0 L MCV 94.3 MCH 30.3 MCHC 32.1 RDW 13.5 Plt Count 319 MPV 10.7 H Immature Gran % (Auto) 0.6 H Neut % (Auto) 65.9 Lymph % (Auto) 19.3 [place] % (Auto) 10.6 H Eos % (Auto) 2.6 Baso % (Auto) 1.0 Lymph # (Auto) 1.49 [place] # (Auto) 0.8 H Eos # (Auto) 0.2 Baso # (Auto) 0.1 Abs Immat Gran (auto) 0.05 H Absolute Neuts (auto) 5.1 Absolute Nucleated RBC 0.000 Nucleated RBC % 0.0 Sodium 130 L Potassium 3.3 L Chloride 98 Carbon Dioxide 30 Anion Gap 2 L BUN 10 Creatinine 0.63 L Estim Creat Clear Calc 95 Estimated GFR > 60 Glucose 98 POC Capillary Glucose Calcium 7.8 L Quality VTE Prophylaxis VTE prophylaxis: pharmacologic ordered
[2024-07-21] MEDS: KCL 20 MEQ/SW 100 ML 100 ML 50 MEQ IVPB (10:33)
--- NOTE | 2024-07-21 10:39 | PCOTNOTE ---
Patient refused at this time. Patient seemed to be having increased agitation due to states, people keep coming in and bothering me, I need some sleep . Patient's present and states she will talk with him and encourage him to extend his participation. Will check back
[2024-07-21 11:28] LABS: Glucose Point of Care 115 mg/dl (65-105)
--- NOTE | 2024-07-21 13:21 | P.PNGS_ITS ---
Progress Note: A&P Assessment and Plan (1) Small bowel obstruction: Code(s): K56.609 - Unspecified intestinal obstruction, unspecified as to partial versus complete obstruction Status: Acute Assessment and Plan: 15 days s/p reoperation for sbo, small bowel resection. Good bowel sounds and having BM's. No sign of recurrent sbo at this point. Oral intake continues to be an issue. He is not eating well consistently enough to stop his TPN. I discussed the option of starting Megace with the Hospitalist to help stimulate his appetite, and they will try adding this today. I will also order a calorie count for the next 3 days to have a better idea of how much he is taking in prior to discontinuing the TPN. Encouraged better intake, as well as supplements. Will continue TPN for today. (2) Open abdominal incision with drainage: Qualifiers: Encounter type: subsequent encounter Qualified Code(s): T81.321D - Disruption or dehiscence of closure of internal operation (surgical) wound of abdominal wall muscle or fascia, subsequent encounter Code(s): T81.321A - Disruption or dehiscence of closure of internal operation (surgical) wound of abdominal wall muscle or fascia, initial encounter Status: Chronic Assessment and Plan: Vac changed today. Wound is healing well with granulating tissue. Continue wound vac therapy and will expect to continue this on discharge. (3) Protein-calorie malnutrition, severe: Code(s): E43 - Unspecified severe protein-calorie malnutrition Status: Acute Assessment and Plan: Continue TPN for now at 60 ml/hr. Sodium remains low, likely due to Clinimix. Potassium still slightly low, but he is receiving KCL 40 meq BID as well as what is in his TPN and got an additional 20 meq IV today. Lipids held yesterday due to elevated triglycerides. Continue to follow labs. (4) Altered mental status: Code(s): R41.82 - Altered mental status, unspecified Status: Acute Assessment and Plan: Improved (5) Chronic alcohol use: Code(s): F10.90 - Alcohol use, unspecified, uncomplicated Status: Chronic Plan I have discussed the patient's case and plan of care with Dr. Shipman. Subjective Subjective Date/Time Seen: 07/21/24 13:21 Patient reports: no new complaints and afebrile Interval history: No acute events overnight. No abdominal pain. Ate well 2 days ago. Yesterday only ate breakfast, refused lunch and dinner. He is not eating the supplements. He states it is hard to chew the food. We discussed the option of also having his or family bring him in softer foods that he would enjoy. Review of Systems Review of Systems: All systems reviewed & are unremarkable except as noted in HPI and below Exam Const: General: comfortable and no acute distress Orientation/consciousness: patient oriented x3 GI: Inspection: non-distended GI Palp: Yes Soft to palpation, No Tenderness to palpation present (GI), No Guarding due to palpation present (GI) and No Rebound tenderness present Auscultation: normal bowel sounds Other: Wound vac changed, abdominal wound is healing well with pink granulating tissue, no necrosis or purulent drainage Objective Data Vital Signs Vital Signs: Vital Signs - 24 hr 07/20/24 16:00 07/20/24 20:00 07/20/24 20:00 Temperature 97.7 F 98.4 F Pulse Rate 106 H 101 H 101 H Respiratory Rate 16 18 18 Blood Pressure 156/84 H 149/75 H Pulse Oximetry 97 97 96 Oxygen Delivery Room Air Fraction of Inspired Oxygen 21 07/21/24 00:00 07/21/24 04:00 07/21/24 08:00 Temperature 98.6 F 98.5 F Pulse Rate 101 H 88 Respiratory Rate 18 20 20 Blood Pressure 171/91 H 154/78 H Pulse Oximetry 96 97 97 Oxygen Delivery Room Air Fraction of Inspired Oxygen Intake/Output Intake/Output: Intake & Output 07/18/24 07/19/24 07/20/24 07/21/24 23:59 23:59 23:59 23:59 Intake Total 3252.7 1286 2256.0 120 Output Total 2900 1700 1350 1650 Balance 352.7 -414 906.0 -1530 Meds/Results Medications: Active Medications Generic Name Dose Route Start Last Admin Trade Name Freq PRN Reason Stop Dose Admin Acetaminophen 650 mg 07/15/24 15:21 Acetaminophen 325 Mg Tablet PO Q6H PRN Mild Pain (1-3) or Fever Alteplase, Recombinant 2 mg 07/11/24 05:49 07/19/24 14:48 Alteplase 2 Mg Vial (Cathflo) IV PUSH 2 mg ONCE PRN Administration Line Occlusion Dextrose 12.5 gm 07/02/24 13:59 Dextrose 50% 25 Gm/50 Ml Syringe IV PUSH PRN PRN Hypoglycemia Protocol Enoxaparin Sodium 40 mg 06/29/24 09:00 07/21/24 09:30 Enoxaparin 40 Mg/0.4 Ml Syringe SUB-Q 40 mg DAILY VANDANA Administration Glucagon 1 mg 07/02/24 13:59 Glucagon For Inj 1 Mg Vial IM PRN PRN Hypoglycemia Protocol Glucose 15 gm 07/02/24 13:59 Glucose Oral Gel 15 Gm Of Glucse In 37.5 Gm Tube PO PRN PRN Hypoglycemia Protocol Hydralazine HCl 20 mg 07/02/24 10:27 07/14/24 05:17 Hydralazine Hcl 20 Mg/Ml Vial IV PUSH 20 mg Q6H PRN Administration Hypertension Dextrose 1,000 mls @ 100 mls/hr 07/02/24 13:59 Dextrose 5% 1,000 Ml IVPB PRN PRN Hypoglycemia Protocol Dextrose 1,000 mls @ 50 mls/hr 07/13/24 08:07 Dextrose 10% IV CONT .Q20H PRN if PN is interrupted Multivitamins 1.25 ml/ 1,002.5 mls @ 60 mls/hr 07/13/24 09:30 07/20/24 22:30 Multivitamins 1.25 ml/ Amino IV CONT 60 mls/hr Acids/Electrolytes/Dextrose .[id number] VANDANA Administration Protocol Fat Emulsion Intravenous 250 mls @ 20.833 mls/hr 07/13/24 09:30 07/20/24 22:40 Lipids 20% IVPB Infused Q24H VANDANA Infusion Metoprolol Succinate 25 mg 07/16/24 09:00 07/21/24 09:31 Metoprolol Succinate Ext Rel 25 Mg Tabcr PO 25 mg QAM VANDANA Administration Miscellaneous Information 1 each 07/21/24 00:01 07/21/24 10:08 Clinimix Needs To Be Renewed Or It Will Automatically Discontinue. XX 08/20/24 00:00 Not Given CLARIFY VANDANA Naloxone HCl 0.1 mg 07/06/24 18:50 Naloxone Hcl 0.4 Mg/Ml Vial IV PUSH Q2M PRN Opiate Reversal Ondansetron HCl 4 mg 06/27/24 08:21 07/12/24 10:06 Ondansetron Inj 4 Mg/2 Ml Vial IV PUSH 4 mg Q4H PRN Administration Nausea Pantoprazole Sodium 40 mg 07/16/24 09:00 07/21/24 09:31 Pantoprazole 40 Mg Tablet PO 40 mg QAM VANDANA Administration Potassium Chloride 40 meq 07/11/24 11:50 07/21/24 09:30 Potassium Chloride 20 Meq Packet (For Liquid) PO 40 meq BID VANDANA Administration Sodium Bicarbonate 650 mg 07/10/24 17:00 07/21/24 09:31 Sodium Bicarbonate Tab 650 Mg Tablet PO 650 mg BID VANDANA Administration Sodium Chloride 10 ml 07/02/24 22:00 07/21/24 12:14 Central Line Flush IV PUSH 10 ml Q8HR VANDANA Administration Sodium Chloride 10 ml 07/02/24 15:38 07/04/24 14:13 Central Line Flush IV PUSH 10 ml PRN PRN Administration with TPN bag changes Sodium Chloride 20 ml 07/02/24 15:38 Central Line Flush IV PUSH PRN PRN after blood draws Thiamine HCl 100 mg 07/16/24 09:00 07/21/24 09:31 Thiamine Hcl 100 Mg Tablet PO 100 mg QAM VANDANA Administration Radiology Results: ITS Impressions Chest/Abdomen/Pelvis CTA 06/27/24 06:17 IMPRESSION: CHEST: 1. No pulmonary embolism. No aortic dissection 2. No acute cardiopulmonary pathology. ABDOMEN/PELVIS: 1. Small bowel obstruction with the transition zone in the terminal ileum area. Clinical correlation advised. 2. No evidence of appendicitis, or diverticulitis. Head CT 06/27/24 06:59 IMPRESSION: No acute intracranial findings. Cervical Spine CT 06/27/24 07:58 IMPRESSION: No acute osseous abnormality cervical spine. Multilevel degenerative disc disease. NG Tube Placement 07/02/24 07:18 IMPRESSION: Fluoroscopy used during NG tube placement in the stomach. Abdomen/Pelvis CT 07/07/24 05:20 Impression: Small amount of pneumoperitoneum, likely postoperative with evidence of recent midline incision stapling since prior exam. Correlate with surgical history. Bowel distention/bowel obstruction is essentially resolved as compared to prior exam. Small bowel evaluation is limited on the current exam due to extensive matting together of bowel loops. Small amount of ascites. Small pleural effusions with bibasilar pulmonary edema/atelectasis versus pneumonia. Correlate clinically. Chest X-Ray 07/08/24 13:34 Impression: 1: Developing patchy bilateral airspace disease, compatible with pneumonia. Venous Doppler Study 07/09/24 00:02 IMPRESSION: Negative right upper extremity venous US. No deep vein thrombosis. Upper GI Series 07/09/24 13:13 IMPRESSION: 1. No bowel obstruction or ileus with normal small bowel transit time and normal caliber and mucosal fold pattern to the small bowel. Abdomen X-Ray 07/15/24 06:41 Impression: Small bowel obstruction. Small Bowel X-Ray 07/15/24 12:57 IMPRESSION: 1. Normal small bowel follow-through. Labs Labs: Laboratory Results - last 24 hr 07/20/24 07/21/24 07/21/24 18:08 00:06 06:46 WBC 7.7 RBC 2.97 L Hgb 9.0 L Hct 28.0 L MCV 94.3 MCH 30.3 MCHC 32.1 RDW 13.5 Plt Count 319 MPV 10.7 H Immature Gran % (Auto) 0.6 H Neut % (Auto) 65.9 Lymph % (Auto) 19.3 [place] % (Auto) 10.6 H Eos % (Auto) 2.6 Baso % (Auto) 1.0 Lymph # (Auto) 1.49 [place] # (Auto) 0.8 H Eos # (Auto) 0.2 Baso # (Auto) 0.1 Abs Immat Gran (auto) 0.05 H Absolute Neuts (auto) 5.1 Absolute Nucleated RBC 0.000 Nucleated RBC % 0.0 Sodium 130 L Potassium 3.3 L Chloride 98 Carbon Dioxide 30 Anion Gap 2 L BUN 10 Creatinine 0.63 L Estim Creat Clear Calc 95 Estimated GFR > 60 Glucose 98 POC Capillary Glucose 105 117 H Calcium 7.8 L 07/21/24 11:25 WBC RBC Hgb Hct MCV MCH MCHC RDW Plt Count MPV Immature Gran % (Auto) Neut % (Auto) Lymph % (Auto) [place] % (Auto) Eos % (Auto) Baso % (Auto) Lymph # (Auto) [place] # (Auto) Eos # (Auto) Baso # (Auto) Abs Immat Gran (auto) Absolute Neuts (auto) Absolute Nucleated RBC Nucleated RBC % Sodium Potassium Chloride Carbon Dioxide Anion Gap BUN Creatinine Estim Creat Clear Calc Estimated GFR Glucose POC Capillary Glucose 115 H Calcium
[2024-07-21 14:00] VITALS: BP 148/89; PULSE 89; RESP 16; TEMP 36; O2SAT 97
[2024-07-21] MEDS: AMINO ACIDS 5%/D15W/E-LYTES/CA 1,000 ML with MULTIVITAMINS-12 INJ VIAL 1 1.25 ML, MULTI... 60 ML IV CONT (17:00)
[2024-07-21] MEDS: MEGESTROL ACETATE (*CHEMO) 40 MG TABLET PO ×2 (17:09→20:20)
[2024-07-21 18:46] LABS: Glucose Point of Care 129 mg/dl (65-105)
[2024-07-21 20:00] VITALS: PULSE 89; RESP 16; O2SAT 97
[2024-07-21 21:11] VITALS: BP 146/87; PULSE 93; RESP 16; TEMP 36.4; O2SAT 95
[2024-07-21 23:51] LABS: Glucose Point of Care 115 mg/dl (65-105)
[2024-07-22 05:30] VITALS: BP 167/90; PULSE 94; RESP 16; TEMP 37; O2SAT 96
[2024-07-22] MEDS: CENTRAL LINE FLUSH 10 ML IV PUSH ×3 (05:34→20:42)
[2024-07-22 05:49] LABS: Basophils Absolute Auto 0.1 K/mm3 (0.0-0.1); Eosinophils Absolute Auto 0.2 K/mm3 (0-0.3); Eosinophils Percent Auto 2.7 % (0-4.4); Hematocrit 27.2 % (42.0-52.0); Hemoglobin 8.8 g/dL (14.0-18.0); Immature Granulocyte Absolute 0.04 K/mm3 (0.00-0.031); Immature Granulocyte Percent A 0.5 % (0-0.5); Lymphocytes Absolute Auto 1.68 K/mm3 (0.9-3.2); Lymphocytes Percent Auto 19.1 % (18.3-44.2); Mean Corpuscular HGB Conc 32.4 g/dl (32-36); Mean Corpuscular Hemoglobin 30.2 pg (26-34); Mean Corpuscular Volume 93.5 fl (80-100); Mean Platelet Volume 9.9 fl (7.4-10.4); Monocytes Absolute Auto 0.9 K/mm3 (0.1-0.6); Monocytes Percent Auto 10.1 % (2.6-8.5); Neutrophils Absolute Auto 5.9 K/mm3 (1.3-6.7); Neutrophils Percent Auto 66.6 % (45.5-73.1); Platelet Count Result 309 k/mm3 (150-375); Red Blood Count 2.91 M/mm3 (4.6-6.20); Red Cell Distribution Width 13.5 % (11.5-14.5); White Blood Count 8.8 K/mm3 (4.5-10.0)
[2024-07-22 05:53] LABS: Glucose Point of Care 106 mg/dl (65-105)
[2024-07-22 05:54] LABS: Alanine Aminotransferase 14 U/L (6-50); Albumin Level 2.4 g/dL (3.5-5.1); Alkaline Phosphatase 100 U/L (38-126); Anion Gap 5 mmol/L (4-12); Aspartate Amino Transferase 25 U/L (17-59); Bilirubin,Total 0.3 mg/dL (0.2-1.3); Blood Urea Nitrogen 10 mg/dL (9-20); Calcium 7.9 mg/dL (8.4-10.2); Carbon Dioxide 26 mmol/L (22-30); Chloride 99 mmol/L (98-107); Estimated CRCL calculation 103 ml/min; Estimated Glomerular Filt Rate > 60; Glucose 105 mg/dL (65-110); Magnesium 1.6 mg/dL (1.6-2.3); Potassium 3.9 mmol/L (3.4-5.0); Sodium 130 mmol/L (137-145); Triglycerides 172 mg/dL (<150)
--- NOTE | 2024-07-22 07:38 | P.PNGS_ITS ---
Progress Note: A&P Assessment and Plan (1) Small bowel obstruction: Code(s): K56.609 - Unspecified intestinal obstruction, unspecified as to partial versus complete obstruction Status: Acute Assessment and Plan: Having bowel movements and has good bowel sounds. No abdominal distension or evidence of ileus. Bowel function does not seem to be the cause of his poor appetite. (2) Open abdominal incision with drainage: Qualifiers: Encounter type: subsequent encounter Qualified Code(s): T81.321D - Disruption or dehiscence of closure of internal operation (surgical) wound of abdominal wall muscle or fascia, subsequent encounter Code(s): T81.321A - Disruption or dehiscence of closure of internal operation (surgical) wound of abdominal wall muscle or fascia, initial encounter Status: Chronic Assessment and Plan: Healing very well with wound VAC. (3) Protein-calorie malnutrition, severe: Code(s): E43 - Unspecified severe protein-calorie malnutrition Status: Acute Assessment and Plan: Still has very poor appetite. Calorie count in progress. He has been started on Megace. Continue to encourage oral intake. Continue physical therapy occupational therapy. Continue TPN for now. (4) Altered mental status: Code(s): R41.82 - Altered mental status, unspecified Status: Acute Assessment and Plan: Improved but still seems depressed. Will start him on Zoloft 50 mg per day. (5) Chronic alcohol use: Code(s): F10.90 - Alcohol use, unspecified, uncomplicated Status: Chronic Assessment and Plan: Now abstinent for 25 days. Subjective Subjective Date/Time Seen: 07/22/24 07:38 Patient reports: no new complaints, pain is less, voiding w/o difficulty, bowel movement, afebrile and other (Still not much appetite.) Exam Const: General: comfortable and no acute distress Orientation/consciousness: patient oriented x3 GI: Inspection: non-distended, incision (Wound VAC in place, working well) and scaphoid GI Palp: Yes Soft to palpation, No Tenderness to palpation present (GI), No Guarding due to palpation present (GI) and No Rebound tenderness present Neuro: General: patient oriented x3 and no focal motor deficits Extrem: General: no calf tenderness and no edema Psych: Speech and movement: Clear speech present Affect: Blunted affect present Attitude: cooperative Thought content: Yes Normal thought content present Insight: Fair insight present (Psych) Judgement: Fair judgement present (Psych) Objective Data Vital Signs Vital Signs: Vital Signs - 24 hr 07/21/24 08:00 07/21/24 14:00 07/21/24 20:00 Temperature 36.0 C L Pulse Rate 89 89 Respiratory Rate 20 16 16 Blood Pressure 148/89 H Pulse Oximetry 97 97 97 Oxygen Delivery Room Air Room Air Fraction of Inspired Oxygen 21 07/21/24 21:11 07/22/24 05:30 Temperature 36.4 C L 37.0 C Pulse Rate 93 94 Respiratory Rate 16 16 Blood Pressure 146/87 H 167/90 H Pulse Oximetry 95 96 Oxygen Delivery Fraction of Inspired Oxygen Intake/Output Intake/Output: Intake & Output 07/19/24 07/20/24 07/21/24 07/22/24 23:59 23:59 23:59 23:59 Intake Total 1286 2256.0 1182.5 250 Output Total 1700 1350 2000 1100 Balance -414 906.0 -817.5 -850 Meds/Results Medications: Active Medications Generic Name Dose Route Start Last Admin Trade Name Freq PRN Reason Stop Dose Admin Acetaminophen 650 mg 07/15/24 15:21 Acetaminophen 325 Mg Tablet PO Q6H PRN Mild Pain (1-3) or Fever Alteplase, Recombinant 2 mg 07/11/24 05:49 07/19/24 14:48 Alteplase 2 Mg Vial (Cathflo) IV PUSH 2 mg ONCE PRN Administration Line Occlusion Dextrose 12.5 gm 07/02/24 13:59 Dextrose 50% 25 Gm/50 Ml Syringe IV PUSH PRN PRN Hypoglycemia Protocol Enoxaparin Sodium 40 mg 06/29/24 09:00 07/21/24 09:30 Enoxaparin 40 Mg/0.4 Ml Syringe SUB-Q 40 mg DAILY VANDANA Administration Glucagon 1 mg 07/02/24 13:59 Glucagon For Inj 1 Mg Vial IM PRN PRN Hypoglycemia Protocol Glucose 15 gm 07/02/24 13:59 Glucose Oral Gel 15 Gm Of Glucse In 37.5 Gm Tube PO PRN PRN Hypoglycemia Protocol Hydralazine HCl 20 mg 07/02/24 10:27 07/14/24 05:17 Hydralazine Hcl 20 Mg/Ml Vial IV PUSH 20 mg Q6H PRN Administration Hypertension Dextrose 1,000 mls @ 100 mls/hr 07/02/24 13:59 Dextrose 5% 1,000 Ml IVPB PRN PRN Hypoglycemia Protocol Dextrose 1,000 mls @ 50 mls/hr 07/13/24 08:07 Dextrose 10% IV CONT .Q20H PRN if PN is interrupted Multivitamins 1.25 ml/ 1,002.5 mls @ 60 mls/hr 07/13/24 09:30 07/21/24 17:00 Multivitamins 1.25 ml/ Amino IV CONT 60 mls/hr Acids/Electrolytes/Dextrose .[id number] VANDANA Administration Protocol Fat Emulsion Intravenous 250 mls @ 20.833 mls/hr 07/13/24 09:30 07/20/24 22:40 Lipids 20% IVPB Infused Q24H VANDANA Infusion Megestrol Acetate 40 mg 07/21/24 17:00 07/21/24 20:20 Megestrol Acetate (*Chemo) 40 Mg Tablet PO 40 mg QID VANDANA Administration Metoprolol Succinate 25 mg 07/16/24 09:00 07/21/24 09:31 Metoprolol Succinate Ext Rel 25 Mg Tabcr PO 25 mg QAM VANDANA Administration Miscellaneous Information 1 each 07/21/24 00:01 07/21/24 10:08 Clinimix Needs To Be Renewed Or It Will Automatically Discontinue. XX 08/20/24 00:00 Not Given CLARIFY VANDANA Naloxone HCl 0.1 mg 07/06/24 18:50 Naloxone Hcl 0.4 Mg/Ml Vial IV PUSH Q2M PRN Opiate Reversal Ondansetron HCl 4 mg 06/27/24 08:21 07/12/24 10:06 Ondansetron Inj 4 Mg/2 Ml Vial IV PUSH 4 mg Q4H PRN Administration Nausea Pantoprazole Sodium 40 mg 07/16/24 09:00 07/21/24 09:31 Pantoprazole 40 Mg Tablet PO 40 mg QAM VANDANA Administration Potassium Chloride 40 meq 07/11/24 11:50 07/21/24 17:09 Potassium Chloride 20 Meq Packet (For Liquid) PO 40 meq BID VANDANA Administration Sodium Bicarbonate 650 mg 07/10/24 17:00 07/21/24 17:09 Sodium Bicarbonate Tab 650 Mg Tablet PO 650 mg BID VANDANA Administration Sodium Chloride 10 ml 07/02/24 22:00 07/22/24 05:34 Central Line Flush IV PUSH 10 ml Q8HR VANDANA Administration Sodium Chloride 10 ml 07/02/24 15:38 07/04/24 14:13 Central Line Flush IV PUSH 10 ml PRN PRN Administration with TPN bag changes Sodium Chloride 20 ml 07/02/24 15:38 Central Line Flush IV PUSH PRN PRN after blood draws Thiamine HCl 100 mg 07/16/24 09:00 07/21/24 09:31 Thiamine Hcl 100 Mg Tablet PO 100 mg QAM VANDANA Administration Radiology Results: ITS Impressions Chest/Abdomen/Pelvis CTA 06/27/24 06:17 IMPRESSION: CHEST: 1. No pulmonary embolism. No aortic dissection 2. No acute cardiopulmonary pathology. ABDOMEN/PELVIS: 1. Small bowel obstruction with the transition zone in the terminal ileum area. Clinical correlation advised. 2. No evidence of appendicitis, or diverticulitis. Head CT 06/27/24 06:59 IMPRESSION: No acute intracranial findings. Cervical Spine CT 06/27/24 07:58 IMPRESSION: No acute osseous abnormality cervical spine. Multilevel degenerative disc disease. NG Tube Placement 07/02/24 07:18 IMPRESSION: Fluoroscopy used during NG tube placement in the stomach. Abdomen/Pelvis CT 07/07/24 05:20 Impression: Small amount of pneumoperitoneum, likely postoperative with evidence of recent midline incision stapling since prior exam. Correlate with surgical history. Bowel distention/bowel obstruction is essentially resolved as compared to prior exam. Small bowel evaluation is limited on the current exam due to extensive matting together of bowel loops. Small amount of ascites. Small pleural effusions with bibasilar pulmonary edema/atelectasis versus pneumonia. Correlate clinically. Chest X-Ray 07/08/24 13:34 Impression: 1: Developing patchy bilateral airspace disease, compatible with pneumonia. Venous Doppler Study 07/09/24 00:02 IMPRESSION: Negative right upper extremity venous US. No deep vein thrombosis. Upper GI Series 07/09/24 13:13 IMPRESSION: 1. No bowel obstruction or ileus with normal small bowel transit time and normal caliber and mucosal fold pattern to the small bowel. Abdomen X-Ray 07/15/24 06:41 Impression: Small bowel obstruction. Small Bowel X-Ray 07/15/24 12:57 IMPRESSION: 1. Normal small bowel follow-through. Labs Labs: Laboratory Results - last 24 hr 04/07/21/24 07/21/24 06:46 11:25 18:41 WBC 7.7 RBC 2.97 L Hgb 9.0 L Hct 28.0 L MCV 94.3 MCH 30.3 MCHC 32.1 RDW 13.5 Plt Count 319 MPV 10.7 H Immature Gran % (Auto) 0.6 H Neut % (Auto) 65.9 Lymph % (Auto) 19.3 [place] % (Auto) 10.6 H Eos % (Auto) 2.6 Baso % (Auto) 1.0 Lymph # (Auto) 1.49 [place] # (Auto) 0.8 H Eos # (Auto) 0.2 Baso # (Auto) 0.1 Abs Immat Gran (auto) 0.05 H Absolute Neuts (auto) 5.1 Absolute Nucleated RBC 0.000 Nucleated RBC % 0.0 Sodium 130 L Potassium 3.3 L Chloride 98 Carbon Dioxide 30 Anion Gap 2 L BUN 10 Creatinine 0.63 L Estim Creat Clear Calc 95 Estimated GFR > 60 Glucose 98 POC Capillary Glucose 115 H 129 H Calcium 7.8 L Magnesium Total Bilirubin AST ALT Alkaline Phosphatase Total Protein Albumin Triglycerides 07/21/24 07/22/24 07/22/24 23:43 05:32 05:50 WBC 8.8 RBC 2.91 L Hgb 8.8 L Hct 27.2 L MCV 93.5 MCH 30.2 MCHC 32.4 RDW 13.5 Plt Count 309 MPV 9.9 Immature Gran % (Auto) 0.5 Neut % (Auto) 66.6 Lymph % (Auto) 19.1 [place] % (Auto) 10.1 H Eos % (Auto) 2.7 Baso % (Auto) 1.0 Lymph # (Auto) 1.68 [place] # (Auto) 0.9 H Eos # (Auto) 0.2 Baso # (Auto) 0.1 Abs Immat Gran (auto) 0.04 H Absolute Neuts (auto) 5.9 Absolute Nucleated RBC 0.000 Nucleated RBC % 0.0 Sodium 130 L Potassium 3.9 Chloride 99 Carbon Dioxide 26 Anion Gap 5 BUN 10 Creatinine 0.58 L Estim Creat Clear Calc 103 Estimated GFR > 60 Glucose 105 POC Capillary Glucose 115 H 106 H Calcium 7.9 L Magnesium 1.6 Total Bilirubin 0.3 AST 25 ALT 14 Alkaline Phosphatase 100 Total Protein 6.0 L Albumin 2.4 L Triglycerides 172 H
[2024-07-22 08:00] VITALS: PULSE 89; O2SAT 96
[2024-07-22] MEDS: AMINO ACIDS 5%/D15W/E-LYTES/CA 1,000 ML with MULTIVITAMINS-12 INJ VIAL 1 1.25 ML, MULTI... 60 ML IV CONT (08:50)
[2024-07-22] MEDS: ENOXAPARIN 40 MG/0.4 ML SYRINGE SUB-Q (08:51)
[2024-07-22] MEDS: MEGESTROL ACETATE (*CHEMO) 40 MG TABLET PO ×3 (08:51→20:42)
[2024-07-22] MEDS: PANTOPRAZOLE 40 MG TABLET PO (08:51)
[2024-07-22 08:52] VITALS: PULSE 89
[2024-07-22] MEDS: SERTRALINE HCL 50 MG TABLET PO (08:52)
[2024-07-22] MEDS: THIAMINE HCL 100 MG TABLET PO (08:52)
[2024-07-22] MEDS: SODIUM BICARBONATE TAB 650 MG TABLET PO ×2 (08:52→17:11)
[2024-07-22] MEDS: METOPROLOL SUCCINATE EXT REL 25 MG TABCR PO (08:52)
[2024-07-22] MEDS: POTASSIUM CHLORIDE 20 MEQ PACKET (FOR LIQUID) 40 MEQ PO ×2 (08:52→17:10)
--- NOTE | 2024-07-22 10:54 | P.PNIM_ITS ---
Progress Note: A&P Assessment and Plan (1) Small bowel obstruction: Code(s): K56.609 - Unspecified intestinal obstruction, unspecified as to partial versus complete obstruction Status: Acute Assessment and Plan: OR on 07/06/[address] Shipman 4 lysis of adhesion with resection of the jejunal perforation with anastomosis. With wound vac placed. He had a small bowel series 07/15/2024 showed normal follow through. Patient passing gas and having BM's. * Diet advanced to soft diet * pain control * ambulate as tolerated * Antiemetics * Incentive spirometer * PT/OT * Continue wound vac evaluation by surgery * Attempt to advance diet as tolerated * Plan to continue to reduce TPN discontinued tomorrow with discharge tomorrow or the next day Calorie count Megace added Encourage family to bring food from home that patient can chew (2) Hypertension: Code(s): I10 - Essential (primary) hypertension Status: Acute Assessment and Plan: patient has been hypertensive systolics running between 180s to 160s. patient does not take any hypertensive medications at home will re-evaluate prior to discharge if patient will need oral antihypertensive medications at discharge after current acute issues are resolved. Transition to oral medications now that he is tolerating diet * Has been getting hydralazine 20 mg IV push as needed for systolics greater than 160, none recently. Stop IV hydralazine since not symptomatic and taking PO. * Change metoprolol 25mg to carvedilol 6.25mg tonight and then increase to 12.5mg BID in the morning & titrate * Hydralazine 25mg q6 prn for SBP <180 * episodes of tachycardia surgery added metoprolol IV push PRN * BP per unit protocol (3) Hypokalemia: Code(s): E87.6 - Hypokalemia Status: Acute Assessment and Plan: Supplement as needed * Keep K+ >4.0 * 3.9 07/22 (4) Chronic alcohol use: Code(s): F10.90 - Alcohol use, unspecified, uncomplicated Status: Chronic Assessment and Plan: Stable Does not appear in withdrawal at this time will continue to monitor * Last drink 06/23 * Thiamine, folic acid, and multi-vitamin * PPI daily * librium PRN * CIWA daily * Monitor and replenish electrolytes as needed (5) ORTEGA (acute kidney injury): Code(s): N17.9 - Acute kidney failure, unspecified Status: Resolved Assessment and Plan: * Acute kidney injury CR 1.98 POA since resolved with IV fluids. Creatinine 0.58 (6) Hyponatremia: Code(s): E87.1 - Hypo-osmolality and hyponatremia Status: Resolved Assessment and Plan: Flucturating sodium, has been hypernatremic. now 129-133 in the last week * 129 on 07/19, 130 07/22, likely secondary to Clinimix Plan Code status: Full code per patient DVT prophylaxis: Lovenox Stress ulcer prophylaxis: Protonix 40 daily PT/OT notes: Ambulatory Subjective Date/time seen: 07/22/24 10:54 Interval history: Pain controlled. Blood pressure still above goal, change metoprolol to carvedilol He reports passing gas and had a bowel movement yesterday. This is a 64-year-old male who presented to the ED with few days history of nausea vomiting and abdominal pain, treating for a small-bowel obstruction, s/p OR 07/[address] Shipman, lysis of adhesion with resection of the jejunal perforation with anastomosis. He had very dense and difficult adhesions. Wound vac placed post op. Review of Systems Review of Systems: - CONSTITUTIONAL: Denies weight loss, fe gorge and chills. - HEENT: Denies changes in vision and he aring - RESPIRATORY: Denies SOB and cough. - CV: Denies palpitations and CP. - GI: Reports abdominal pain, nausea, v omiting and denies diarrhea. - : Denies dysuria and urinary frequen cy. - MSK: Denies myalgia and joint pain. - SKIN: Denies rash and pruritus. - NEUROLOGICAL: Denies headache and sync ope. - PSYCHIATRIC: Denies recent changes in mood. Denies anxiety and depression. All systems reviewed & are unremarkable except as noted in HPI and below Exam Narrative: General: Chronically ill appearing, appears older than stated age. HEENT: normocephalic, atraumatic. Mucous membranes moist. EOMI, PERRLA, bilateral sclera anicteric, no conjunctival injection. Neck supple without JVD, lymphadenopathy, or bruit. Respiratory: clear to ascultation bilaterally. No rales/rhonic/wheezes. Cardiovascular: Regular rate and rhythm, normal S1-S2 upon ascultation. No murmurs, rubs, or clicks. PMI is nondisplaced, capillary refill less than 3 second. Abdomen: Soft, round, no pulsatile masses, nondistended and nontender. No rebound, no guarding. No CVA tenderness, no hepatosplenomegaly. Wound VAC in place Extremities: No cyanosis, clubbing, or edema present. Pulses are palpable 2/2. Active ROM to all four extremities. Neuro: Alert and orientated x 4. PERRLA. Cranial nerves 2-12 intact without focal deficit. Skin: Warm, dry, and intact, without rash, erythema, or lesion. Psych: pleasant, cooperative, normal speech, normal affect, no hallucinations, no dysarthia Const: General: comfortable and no acute distress HENMT: Mouth: Yes moist mucous membranes Eyes: General: appearance normal, both eyes and all related structures Pupils: Equal, round and reactive pupils present Neck: Neck: supple and no JVD Resp: Effort & Inspection: normal respiratory effort Auscultation: clear to auscultation bilaterally Cardio: Rate: regular rate Rhythm: regular rhythm GI: Auscultation: abnormal bowel sounds (hypoactive) Other: Midline incision with wound vac in place Skin: General skin exam: normal color Neuro: General: gait normal Cranial nerves: Yes Equal, round and reactive pupils present Speech: normal speech Extrem: General: normal to inspection Psych: Mental Status: mental status grossly normal Affect: normal affect Objective Data Vital Signs Vital Signs: Vital Signs - 24 hr 07/21/24 14:00 07/21/24 20:00 07/21/24 21:11 Temperature 96.8 F L 97.5 F L Pulse Rate 89 89 93 Respiratory Rate 16 16 16 Blood Pressure 148/89 H 146/87 H Pulse Oximetry 97 97 95 Oxygen Delivery Room Air Fraction of Inspired Oxygen 21 07/22/24 05:30 07/22/24 08:52 Temperature 98.6 F Pulse Rate 94 89 Respiratory Rate 16 Blood Pressure 167/90 H Pulse Oximetry 96 Oxygen Delivery Fraction of Inspired Oxygen Intake/Output Intake/Output: Intake & Output 07/19/24 07/20/24 07/21/24 07/22/24 23:59 23:59 23:59 23:59 Intake Total 1286 2256.0 1182.5 1200 Output Total 1700 1350 2000 1700 Balance -414 906.0 -817.5 -500 Meds/Results Medications: Active Medications Generic Name Dose Route Start Last Admin Trade Name Freq PRN Reason Stop Dose Admin Acetaminophen 650 mg 07/15/24 15:21 Acetaminophen 325 Mg Tablet PO Q6H PRN Mild Pain (1-3) or Fever Alteplase, Recombinant 2 mg 07/11/24 05:49 07/19/24 14:48 Alteplase 2 Mg Vial (Cathflo) IV PUSH 2 mg ONCE PRN Administration Line Occlusion Dextrose 12.5 gm 07/02/24 13:59 Dextrose 50% 25 Gm/50 Ml Syringe IV PUSH PRN PRN Hypoglycemia Protocol Enoxaparin Sodium 40 mg 06/29/24 09:00 07/22/24 08:51 Enoxaparin 40 Mg/0.4 Ml Syringe SUB-Q 40 mg DAILY VANDANA Administration Glucagon 1 mg 07/02/24 13:59 Glucagon For Inj 1 Mg Vial IM PRN PRN Hypoglycemia Protocol Glucose 15 gm 07/02/24 13:59 Glucose Oral Gel 15 Gm Of Glucse In 37.5 Gm Tube PO PRN PRN Hypoglycemia Protocol Hydralazine HCl 20 mg 07/02/24 10:27 07/14/24 05:17 Hydralazine Hcl 20 Mg/Ml Vial IV PUSH 20 mg Q6H PRN Administration Hypertension Dextrose 1,000 mls @ 100 mls/hr 07/02/24 13:59 Dextrose 5% 1,000 Ml IVPB PRN PRN Hypoglycemia Protocol Dextrose 1,000 mls @ 50 mls/hr 07/13/24 08:07 Dextrose 10% IV CONT .Q20H PRN if PN is interrupted Multivitamins 1.25 ml/ 1,002.5 mls @ 60 mls/hr 07/13/24 09:30 07/22/24 08:50 Multivitamins 1.25 ml/ Amino IV CONT 60 mls/hr Acids/Electrolytes/Dextrose .[id number] VANDANA Administration Protocol Fat Emulsion Intravenous 250 mls @ 20.833 mls/hr 07/13/24 09:30 07/20/24 22:40 Lipids 20% IVPB Infused Q24H VANDANA Infusion Megestrol Acetate 40 mg 07/21/24 17:00 07/22/24 08:51 Megestrol Acetate (*Chemo) 40 Mg Tablet PO 40 mg QID VANDANA Administration Metoprolol Succinate 25 mg 07/16/24 09:00 07/22/24 08:52 Metoprolol Succinate Ext Rel 25 Mg Tabcr PO 25 mg QAM VANDANA Administration Naloxone HCl 0.1 mg 07/06/24 18:50 Naloxone Hcl 0.4 Mg/Ml Vial IV PUSH Q2M PRN Opiate Reversal Ondansetron HCl 4 mg 06/27/24 08:21 07/12/24 10:06 Ondansetron Inj 4 Mg/2 Ml Vial IV PUSH 4 mg Q4H PRN Administration Nausea Pantoprazole Sodium 40 mg 07/16/24 09:00 07/22/24 08:51 Pantoprazole 40 Mg Tablet PO 40 mg QAM VANDAAN Administration Potassium Chloride 40 meq 07/11/24 11:50 07/22/24 08:52 Potassium Chloride 20 Meq Packet (For Liquid) PO 40 meq BID VANDANA Administration Sertraline HCl 50 mg 07/22/24 09:00 07/22/24 08:52 Sertraline Hcl 50 Mg Tablet PO 50 mg QAM VANDANA Administration Sodium Bicarbonate 650 mg 07/10/24 17:00 07/22/24 08:52 Sodium Bicarbonate Tab 650 Mg Tablet PO 650 mg BID VANDANA Administration Sodium Chloride 10 ml 07/02/24 22:00 07/22/24 05:34 Central Line Flush IV PUSH 10 ml Q8HR VANDANA Administration Sodium Chloride 10 ml 07/02/24 15:38 07/04/24 14:13 Central Line Flush IV PUSH 10 ml PRN PRN Administration with TPN bag changes Sodium Chloride 20 ml 07/02/24 15:38 Central Line Flush IV PUSH PRN PRN after blood draws Thiamine HCl 100 mg 07/16/24 09:00 07/22/24 08:52 Thiamine Hcl 100 Mg Tablet PO 100 mg QAM VANDANA Administration Radiology Results: ITS Impressions Chest/Abdomen/Pelvis CTA 06/27/24 06:17 IMPRESSION: CHEST: 1. No pulmonary embolism. No aortic dissection 2. No acute cardiopulmonary pathology. ABDOMEN/PELVIS: 1. Small bowel obstruction with the transition zone in the terminal ileum area. Clinical correlation advised. 2. No evidence of appendicitis, or diverticulitis. Head CT 06/27/24 06:59 IMPRESSION: No acute intracranial findings. Cervical Spine CT 06/27/24 07:58 IMPRESSION: No acute osseous abnormality cervical spine. Multilevel degenerative disc disease. NG Tube Placement 07/02/24 07:18 IMPRESSION: Fluoroscopy used during NG tube placement in the stomach. Abdomen/Pelvis CT 07/07/24 05:20 Impression: Small amount of pneumoperitoneum, likely postoperative with evidence of recent midline incision stapling since prior exam. Correlate with surgical history. Bowel distention/bowel obstruction is essentially resolved as compared to prior exam. Small bowel evaluation is limited on the current exam due to extensive matting together of bowel loops. Small amount of ascites. Small pleural effusions with bibasilar pulmonary edema/atelectasis versus pneumonia. Correlate clinically. Chest X-Ray 07/08/24 13:34 Impression: 1: Developing patchy bilateral airspace disease, compatible with pneumonia. Venous Doppler Study 07/09/24 00:02 IMPRESSION: Negative right upper extremity venous US. No deep vein thrombosis. Upper GI Series 07/09/24 13:13 IMPRESSION: 1. No bowel obstruction or ileus with normal small bowel transit time and normal caliber and mucosal fold pattern to the small bowel. Abdomen X-Ray 07/15/24 06:41 Impression: Small bowel obstruction. Small Bowel X-Ray 07/15/24 12:57 IMPRESSION: 1. Normal small bowel follow-through. Labs Labs: Laboratory Results - last 24 hr 07/21/24 07/21/24 07/21/24 11:25 18:41 23:43 WBC RBC Hgb Hct MCV MCH MCHC RDW Plt Count MPV Immature Gran % (Auto) Neut % (Auto) Lymph % (Auto) [place] % (Auto) Eos % (Auto) Baso % (Auto) Lymph # (Auto) [place] # (Auto) Eos # (Auto) Baso # (Auto) Abs Immat Gran (auto) Absolute Neuts (auto) Absolute Nucleated RBC Nucleated RBC % Sodium Potassium Chloride Carbon Dioxide Anion Gap BUN Creatinine Estim Creat Clear Calc Estimated GFR Glucose POC Capillary Glucose 115 H 129 H 115 H Calcium Magnesium Total Bilirubin AST ALT Alkaline Phosphatase Total Protein Albumin Triglycerides 07/22/24 07/22/24 05:32 05:50 WBC 8.8 RBC 2.91 L Hgb 8.8 L Hct 27.2 L MCV 93.5 MCH 30.2 MCHC 32.4 RDW 13.5 Plt Count 309 MPV 9.9 Immature Gran % (Auto) 0.5 Neut % (Auto) 66.6 Lymph % (Auto) 19.1 [place] % (Auto) 10.1 H Eos % (Auto) 2.7 Baso % (Auto) 1.0 Lymph # (Auto) 1.68 [place] # (Auto) 0.9 H Eos # (Auto) 0.2 Baso # (Auto) 0.1 Abs Immat Gran (auto) 0.04 H Absolute Neuts (auto) 5.9 Absolute Nucleated RBC 0.000 Nucleated RBC % 0.0 Sodium 130 L Potassium 3.9 Chloride 99 Carbon Dioxide 26 Anion Gap 5 BUN 10 Creatinine 0.58 L Estim Creat Clear Calc 103 Estimated GFR > 60 Glucose 105 POC Capillary Glucose 106 H Calcium 7.9 L Magnesium 1.6 Total Bilirubin 0.3 AST 25 ALT 14 Alkaline Phosphatase 100 Total Protein 6.0 L Albumin 2.4 L Triglycerides 172 H Quality VTE Prophylaxis VTE prophylaxis: pharmacologic ordered
[2024-07-22 11:38] LABS: Glucose Point of Care 121 mg/dl (65-105)
[2024-07-22 13:55] VITALS: BP 137/80; PULSE 94; RESP 18; TEMP 35.7; O2SAT 98
[2024-07-22 18:15] LABS: Toxigenic C. Diff NEGATIVE (NEGATIVE)
[2024-07-22 18:17] LABS: Glucose Point of Care 122 mg/dl (65-105)
[2024-07-22 20:42] VITALS: PULSE 94
[2024-07-22] MEDS: carvediloL 6.25 MG TABLET PO (20:42)
[2024-07-22 20:52] VITALS: BP 131/79; PULSE 85; RESP 18; TEMP 36.6; O2SAT 96
[2024-07-23 00:25] LABS: Glucose Point of Care 114 mg/dl (65-105)
[2024-07-23] MEDS: AMINO ACIDS 5%/D15W/E-LYTES/CA 1,000 ML with MULTIVITAMINS-12 INJ VIAL 1 1.25 ML, MULTI... 60 ML IV CONT (03:41)
[2024-07-23 05:53] LABS: Glucose Point of Care 111 mg/dl (65-105)
[2024-07-23] MEDS: CENTRAL LINE FLUSH 10 ML IV PUSH ×3 (05:53→22:33)
[2024-07-23 06:00] VITALS: BP 134/72; PULSE 88; RESP 18; TEMP 36.7; O2SAT 96
[2024-07-23 06:19] LABS: Hematocrit 26.8 % (42.0-52.0); Hemoglobin 8.8 g/dL (14.0-18.0); Mean Corpuscular HGB Conc 32.8 g/dl (32-36); Mean Corpuscular Hemoglobin 30.6 pg (26-34); Mean Corpuscular Volume 93.1 fl (80-100); Mean Platelet Volume 9.7 fl (7.4-10.4); Platelet Count Result 292 k/mm3 (150-375); Red Blood Count 2.88 M/mm3 (4.6-6.20); Red Cell Distribution Width 13.5 % (11.5-14.5); White Blood Count 10.3 K/mm3 (4.5-10.0)
[2024-07-23 06:32] LABS: Anion Gap 7 mmol/L (4-12); Blood Urea Nitrogen 11 mg/dL (9-20); Calcium 8.2 mg/dL (8.4-10.2); Carbon Dioxide 25 mmol/L (22-30); Chloride 98 mmol/L (98-107); Estimated CRCL calculation 109 ml/min; Estimated Glomerular Filt Rate > 60; Glucose 104 mg/dL (65-110); Potassium 4.4 mmol/L (3.4-5.0); Sodium 130 mmol/L (137-145)
[2024-07-23 08:00] VITALS: PULSE 85; RESP 18; O2SAT 95
[2024-07-23] MEDS: THIAMINE HCL 100 MG TABLET PO (08:38)
[2024-07-23] MEDS: ENOXAPARIN 40 MG/0.4 ML SYRINGE SUB-Q (08:38)
[2024-07-23] MEDS: PANTOPRAZOLE 40 MG TABLET PO (08:38)
[2024-07-23] MEDS: SODIUM BICARBONATE TAB 650 MG TABLET PO ×2 (08:38→16:39)
[2024-07-23] MEDS: SERTRALINE HCL 50 MG TABLET PO (08:38)
[2024-07-23] MEDS: MEGESTROL ACETATE (*CHEMO) 40 MG TABLET PO ×4 (08:38→21:01)
[2024-07-23 08:39] VITALS: PULSE 85
[2024-07-23] MEDS: carvediloL 6.25 MG TABLET PO ×2 (08:39→21:01)
[2024-07-23] MEDS: POTASSIUM CHLORIDE 20 MEQ PACKET (FOR LIQUID) 40 MEQ PO (08:39)
--- NOTE | 2024-07-23 09:49 | P.PNGS_ITS ---
Progress Note: A&P Assessment and Plan (1) Small bowel obstruction: Code(s): K56.609 - Unspecified intestinal obstruction, unspecified as to partial versus complete obstruction Status: Acute Assessment and Plan: Having bowel movements and has good bowel sounds. No abdominal distension or evidence of ileus. Bowel function does not seem to be the cause of his poor appetite. Having stools in the bed and on the chair. Seems not to have the motivation to call and go to the bathroom. Will get him a commode. Encouraged to try to use a bedpan or the commode for bowel movements due to cleanliness and wound healing. (2) Open abdominal incision with drainage: Qualifiers: Encounter type: subsequent encounter Qualified Code(s): T81.321D - Disruption or dehiscence of closure of internal operation (surgical) wound of abdominal wall muscle or fascia, subsequent encounter Code(s): T81.321A - Disruption or dehiscence of closure of internal operation (surgical) wound of abdominal wall muscle or fascia, initial encounter Status: Chronic Assessment and Plan: Healing very well with wound VAC. will change wound VAC again Friday and then go to twice a week wound VAC changes. (3) Protein-calorie malnutrition, severe: Code(s): E43 - Unspecified severe protein-calorie malnutrition Status: Acute Assessment and Plan: Will stop TPN and see if oral intake increases. Observe over the next 2-3 days. (4) Altered mental status: Qualifiers: Altered mental status type: unspecified Qualified Code(s): R41.82 - Altered mental status, unspecified Code(s): R41.82 - Altered mental status, unspecified Status: Acute Assessment and Plan: Patient started on Megace for improvement of appetite. Also started him on a low dose of Zoloft yesterday for depression. Did seem more communicative this morning. Continue to monitor. (5) Chronic alcohol use: Code(s): F10.90 - Alcohol use, unspecified, uncomplicated Status: Chronic Assessment and Plan: Now abstinent for 26 days. Subjective Subjective Date/Time Seen: 07/23/24 09:49 Post Op day: #17 Patient reports: no new complaints, voiding w/o difficulty, bowel movement (Stools are loose and patient not trying to control) and afebrile Exam Const: General: comfortable, alert and awake Nutritional Appearance: thin GI: Inspection: non-distended and incision (VAC changed, continued wound healing noted) GI Palp: Yes Soft to palpation, Yes Tenderness to palpation present (GI) (Not tender by palpation but wound and VAC change are painful.), No Hernia present and No Palpable mass present Auscultation: normal bowel sounds Objective Data Vital Signs Vital Signs: Vital Signs - 24 hr 07/22/24 13:55 07/22/24 20:42 07/22/24 20:52 Temperature 35.7 C L 36.6 C Pulse Rate 94 94 85 Respiratory Rate 18 18 Blood Pressure 137/80 131/79 Pulse Oximetry 98 96 07/23/24 06:00 07/23/24 08:39 Temperature 36.7 C Pulse Rate 88 85 Respiratory Rate 18 Blood Pressure 134/72 Pulse Oximetry 96 Intake/Output Intake/Output: Intake & Output 07/20/24 07/21/24 07/22/24 07/23/24 23:59 23:59 23:59 23:59 Intake Total 2256.0 1182.5 1436 1152.5 Output Total 1350 2000 2175 1650 Balance 906.0 -817.5 -739 -497.5 Meds/Results Medications: Active Medications Generic Name Dose Route Start Last Admin Trade Name Freq PRN Reason Stop Dose Admin Acetaminophen 650 mg 07/15/24 15:21 Acetaminophen 325 Mg Tablet PO Q6H PRN Mild Pain (1-3) or Fever Alteplase, Recombinant 2 mg 07/11/24 05:49 07/19/24 14:48 Alteplase 2 Mg Vial (Cathflo) IV PUSH 2 mg ONCE PRN Administration Line Occlusion Carvedilol 6.25 mg 07/22/24 21:00 07/23/24 08:39 Carvedilol 6.25 Mg Tablet PO 6.25 mg Q12HR VANDANA Administration Dextrose 12.5 gm 07/02/24 13:59 Dextrose 50% 25 Gm/50 Ml Syringe IV PUSH PRN PRN Hypoglycemia Protocol Enoxaparin Sodium 40 mg 06/29/24 09:00 07/23/24 08:38 Enoxaparin 40 Mg/0.4 Ml Syringe SUB-Q 40 mg DAILY VANDANA Administration Glucagon 1 mg 07/02/24 13:59 Glucagon For Inj 1 Mg Vial IM PRN PRN Hypoglycemia Protocol Glucose 15 gm 07/02/24 13:59 Glucose Oral Gel 15 Gm Of Glucse In 37.5 Gm Tube PO PRN PRN Hypoglycemia Protocol Hydralazine HCl 25 mg 07/22/24 11:15 Hydralazine Hcl 25 Mg Tablet PO QID PRN Hypertension Dextrose 1,000 mls @ 100 mls/hr 07/02/24 13:59 Dextrose 5% 1,000 Ml IVPB PRN PRN Hypoglycemia Protocol Dextrose 1,000 mls @ 50 mls/hr 07/13/24 08:07 Dextrose 10% IV CONT .Q20H PRN if PN is interrupted Multivitamins 1.25 ml/ 1,002.5 mls @ 60 mls/hr 07/13/24 09:30 07/23/24 03:41 Multivitamins 1.25 ml/ Amino IV CONT 60 mls/hr Acids/Electrolytes/Dextrose .[id number] VANDANA Administration Protocol Fat Emulsion Intravenous 250 mls @ 20.833 mls/hr 07/13/24 09:30 07/20/24 22:40 Lipids 20% IVPB Infused Q24H VANDANA Infusion Megestrol Acetate 40 mg 07/21/24 17:00 07/23/24 08:38 Megestrol Acetate (*Chemo) 40 Mg Tablet PO 40 mg QID VANDANA Administration Naloxone HCl 0.1 mg 07/06/24 18:50 Naloxone Hcl 0.4 Mg/Ml Vial IV PUSH Q2M PRN Opiate Reversal Ondansetron HCl 4 mg 06/27/24 08:21 07/12/24 10:06 Ondansetron Inj 4 Mg/2 Ml Vial IV PUSH 4 mg Q4H PRN Administration Nausea Pantoprazole Sodium 40 mg 07/16/24 09:00 07/23/24 08:38 Pantoprazole 40 Mg Tablet PO 40 mg QAM VANDANA Administration Potassium Chloride 40 meq 07/11/24 11:50 07/23/24 08:39 Potassium Chloride 20 Meq Packet (For Liquid) PO 40 meq BID VANDANA Administration Sertraline HCl 50 mg 07/22/24 09:00 07/23/24 08:38 Sertraline Hcl 50 Mg Tablet PO 50 mg QAM VANDANA Administration Sodium Bicarbonate 650 mg 07/10/24 17:00 07/23/24 08:38 Sodium Bicarbonate Tab 650 Mg Tablet PO 650 mg BID VANDANA Administration Sodium Chloride 10 ml 07/02/24 22:00 07/23/24 05:53 Central Line Flush IV PUSH 10 ml Q8HR VANDANA Administration Sodium Chloride 10 ml 07/02/24 15:38 07/04/24 14:13 Central Line Flush IV PUSH 10 ml PRN PRN Administration with TPN bag changes Sodium Chloride 20 ml 07/02/24 15:38 Central Line Flush IV PUSH PRN PRN after blood draws Thiamine HCl 100 mg 07/16/24 09:00 07/23/24 08:38 Thiamine Hcl 100 Mg Tablet PO 100 mg QAM VANDANA Administration Radiology Results: ITS Impressions Chest/Abdomen/Pelvis CTA 06/27/24 06:17 IMPRESSION: CHEST: 1. No pulmonary embolism. No aortic dissection 2. No acute cardiopulmonary pathology. ABDOMEN/PELVIS: 1. Small bowel obstruction with the transition zone in the terminal ileum area. Clinical correlation advised. 2. No evidence of appendicitis, or diverticulitis. Head CT 06/27/24 06:59 IMPRESSION: No acute intracranial findings. Cervical Spine CT 06/27/24 07:58 IMPRESSION: No acute osseous abnormality cervical spine. Multilevel degenerative disc disease. NG Tube Placement 07/02/24 07:18 IMPRESSION: Fluoroscopy used during NG tube placement in the stomach. Abdomen/Pelvis CT 07/07/24 05:20 Impression: Small amount of pneumoperitoneum, likely postoperative with evidence of recent m idline incision stapling since prior exam. Correlate with surgical history. Bowel distention/bowel obstruction is essentially resolved as compared to prior exam. Small bowel evaluation is limited on the current exam due to extensive matting together of bowel loops. Small amount of ascites. Small pleural effusions with bibasilar pulmonary edema/atelectasis versus pneumonia. Correlate clinically. Chest X-Ray 07/08/24 13:34 Impression: 1: Developing patchy bilateral airspace disease, compatible with pneumonia. Venous Doppler Study 07/09/24 00:02 IMPRESSION: Negative right upper extremity venous US. No deep vein thrombosis. Upper GI Series 07/09/24 13:13 IMPRESSION: 1. No bowel obstruction or ileus with normal small bowel transit time and normal caliber and mucosal fold pattern to the small bowel. Abdomen X-Ray 07/15/24 06:41 Impression: Small bowel obstruction. Small Bowel X-Ray 07/15/24 12:57 IMPRESSION: 1. Normal small bowel follow-through. Labs Labs: Laboratory Results - last 24 hr 07/22/24 07/22/24 07/22/24 11:30 17:12 18:15 WBC RBC Hgb Hct MCV MCH MCHC RDW Plt Count MPV Sodium Potassium Chloride Carbon Dioxide Anion Gap BUN Creatinine Estim Creat Clear Calc Estimated GFR Glucose POC Capillary Glucose 121 H 122 H Calcium C. difficile (PCR) Negative 07/23/24 07/23/24 07/23/24 00:03 05:50 06:12 WBC 10.3 H RBC 2.88 L Hgb 8.8 L Hct 26.8 L MCV 93.1 MCH 30.6 MCHC 32.8 RDW 13.5 Plt Count 292 MPV 9.7 Sodium 130 L Potassium 4.4 Chloride 98 Carbon Dioxide 25 Anion Gap 7 BUN 11 Creatinine 0.54 L Estim Creat Clear Calc 109 Estimated GFR > 60 Glucose 104 POC Capillary Glucose 114 H 111 H Calcium 8.2 L C. difficile (PCR)
[2024-07-23 11:46] LABS: Glucose Point of Care 123 mg/dl (65-105)
--- NOTE | 2024-07-23 12:52 | PCNFU ---
Nutrition Follow-Up Complete: Inadequate energy intake related to small bowel obstruction as evidenced by NPO day 5 Meet estimated nutrition needs - Progressing with PO intake PO intake when medically able - Goal is met Goal: Pt current nutrition is Regular diet, Ensure Enlive TID (350 kcal, 20 g protein) and Ensure Clear TID (240 kcal, 8 gprotein) . Nutrition recommendation: No new recommendations. Agree with current orders. Last recorded weight is 77.9 kg. Bowel Motility: +2 BMs 07/22/24 Labs Reviewed: Hgb 8.8, Hct 26.8, Na 130, Cre 0.54, Glu 123, TRIG 172 Meds Noted: Protonix, thiamine, lovenox Skin:Abdomen - surgical Additional Notes: TPN was discontinued today. Pt tells me even before getting sick, he usually had poor appetite and only ate 1 meal per day. Appears with chronic muscle wasting to temporalis. Calorie count was not done correctly and unable to determine results. Eating about 1/4 sandwich, etc. Supplements are on. Monitoring orders, TPN tolerance, labs, weights, meds, output, plan of care Follow up Friday/Friday
--- NOTE | 2024-07-23 13:35 | PCOTNOTE ---
Attempted to see Patient at this time. Patient refused to participate with any activity. Patient states , I'm not interested, just want to be left alone to sleep and rest, I'm exhausted . Patient seems agitated to be interrupted . Therapist expressed the importance of activity, movement for increased abilities, strengthening.
[2024-07-23 13:48] VITALS: BP 124/68; PULSE 85; RESP 16; TEMP 36.2; O2SAT 96
[2024-07-23] MEDS: ONDANSETRON HCL ODT 4 MG TABLET PO (16:39)
--- NOTE | 2024-07-23 18:03 | P.PNIM_ITS ---
Progress Note: A&P Assessment and Plan (1) Small bowel obstruction: Code(s): K56.609 - Unspecified intestinal obstruction, unspecified as to partial versus complete obstruction Status: Acute Assessment and Plan: OR on 07/06/[address] Shipman 4 lysis of adhesion with resection of the jejunal perforation with anastomosis. With wound vac placed. He had a small bowel series 07/15/2024 showed normal follow through. Patient passing gas and having BM's. * Diet advanced to soft diet * pain control * ambulate as tolerated * Antiemetics * Incentive spirometer * PT/OT * Continue wound vac evaluation by surgery * Attempt to advance diet as tolerated * Reports nausea limiting intake--schedule zofran TID * Stopped TPN 07/23. Monitoring intake Calorie count Megace added Encourage family to bring food from home that patient can chew (2) Hypertension: Code(s): I10 - Essential (primary) hypertension Status: Acute Assessment and Plan: patient has been hypertensive systolics running between 180s to 160s. patient does not take any hypertensive medications at home will re-evaluate prior to discharge if patient will need oral antihypertensive medications at discharge after current acute issues are resolved. Transition to oral medications now that he is tolerating diet * Has been getting hydralazine 20 mg IV push as needed for systolics greater than 160, none recently. Stop IV hydralazine since not symptomatic and taking PO. * Changed metoprolol 25mg to carvedilol 6.25mg BID and blood pressure currently controlled. Titrate as needec * Hydralazine 25mg q6 prn for SBP <180 * episodes of tachycardia surgery added metoprolol IV push PRN * BP per unit protocol (3) Hypokalemia: Code(s): E87.6 - Hypokalemia Status: Acute Assessment and Plan: Supplement as needed * Keep K+ >4.0 * 3.9 07/22 (4) Chronic alcohol use: Code(s): F10.90 - Alcohol use, unspecified, uncomplicated Status: Chronic Assessment and Plan: Stable Does not appear in withdrawal at this time will continue to monitor * Last drink 06/23 * Thiamine, folic acid, and multi-vitamin * PPI daily * librium PRN * CIWA daily * Monitor and replenish electrolytes as needed (5) ORTEGA (acute kidney injury): Code(s): N17.9 - Acute kidney failure, unspecified Status: Resolved Assessment and Plan: * Acute kidney injury CR 1.98 POA since resolved with IV fluids. Creatinine 0.58 (6) Hyponatremia: Code(s): E87.1 - Hypo-osmolality and hyponatremia Status: Resolved Assessment and Plan: Flucturating sodium, has been hypernatremic. now 129-133 in the last week * 129 on 07/19, 130 07/22, likely secondary to Clinimix Plan Code status: Full code per patient DVT prophylaxis: Lovenox Stress ulcer prophylaxis: Protonix 40 daily PT/OT notes: Ambulatory Time Spent With Patient Time: 47 minutes Subjective Date/time seen: 07/23/24 15:35 Interval history: Pain controlled. Reports nausea is limited intake. No vomiting. Blood pressure still above goal, changed metoprolol to carvedilol and better today He reports passing gas and had a bowel movement yesterday. This is a 64-year-old male who presented to the ED with few days history of nausea vomiting and abdominal pain, treating for a small-bowel obstruction, s/p OR 07/[address] Shipman, lysis of adhesion with resection of the jejunal perforation with anastomosis. He had very dense and difficult adhesions. Wound vac placed post op. TPN stopped today Review of Systems Review of Systems: All systems reviewed & are unremarkable except as noted in HPI and below Exam Narrative: General: Chronically ill appearing, appears older than stated age. HEENT: normocephalic, atraumatic. Mucous membranes moist. EOMI, PERRLA, bilateral sclera anicteric, no conjunctival injection. Neck supple without JVD, lymphadenopathy, or bruit. Respiratory: clear to ascultation bilaterally. No rales/rhonic/wheezes. Cardiovascular: Regular rate and rhythm, normal S1-S2 upon ascultation. No murmurs, rubs, or clicks. PMI is nondisplaced, capillary refill less than 3 second. Abdomen: Soft, round, no pulsatile masses, nondistended. Mildly tender with wound vac in place. No CVA tenderness, no hepatosplenomegaly. Wound VAC in place Extremities: No cyanosis, clubbing, or edema present. Pulses are palpable 2/2. Active ROM to all four extremities. Neuro: Alert and orientated x 4. PERRLA. Cranial nerves 2-12 intact without focal deficit. Skin: Warm, dry, and intact, without rash, erythema, or lesion. Psych: pleasant, cooperative, normal speech, normal affect, no hallucinations, no dysarthia Objective Data Vital Signs Vital Signs: Vital Signs - 24 hr 07/22/24 20:42 07/22/24 20:52 07/23/24 06:00 Temperature 97.9 F 98.1 F Pulse Rate 94 85 88 Respiratory Rate 18 18 Blood Pressure 131/79 134/72 Pulse Oximetry 96 96 Oxygen Delivery 07/23/24 08:00 07/23/24 08:39 07/23/24 13:48 Temperature 97.2 F L Pulse Rate 85 85 85 Respiratory Rate 18 16 Blood Pressure 124/68 Pulse Oximetry 95 96 Oxygen Delivery Room Air Intake/Output Intake/Output: Intake & Output 07/20/24 07/21/24 07/22/24 07/23/24 23:59 23:59 23:59 23:59 Intake Total 2256.0 1182.5 1436 1352.5 Output Total 1350 2000 2175 1650 Balance 906.0 -817.5 -739 -297.5 Meds/Results Medications: Active Medications Generic Name Dose Route Start Last Admin Trade Name Freq PRN Reason Stop Dose Admin Acetaminophen 650 mg 07/15/24 15:21 Acetaminophen 325 Mg Tablet PO Q6H PRN Mild Pain (1-3) or Fever Alteplase, Recombinant 2 mg 07/11/24 05:49 07/19/24 14:48 Alteplase 2 Mg Vial (Cathflo) IV PUSH 2 mg ONCE PRN Administration Line Occlusion Carvedilol 6.25 mg 07/22/24 21:00 07/23/24 08:39 Carvedilol 6.25 Mg Tablet PO 6.25 mg Q12HR VANDANA Administration Dextrose 12.5 gm 07/02/24 13:59 Dextrose 50% 25 Gm/50 Ml Syringe IV PUSH PRN PRN Hypoglycemia Protocol Enoxaparin Sodium 40 mg 06/29/24 09:00 07/23/24 08:38 Enoxaparin 40 Mg/0.4 Ml Syringe SUB-Q 40 mg DAILY VANDANA Administration Glucagon 1 mg 07/02/24 13:59 Glucagon For Inj 1 Mg Vial IM PRN PRN Hypoglycemia Protocol Glucose 15 gm 07/02/24 13:59 Glucose Oral Gel 15 Gm Of Glucse In 37.5 Gm Tube PO PRN PRN Hypoglycemia Protocol Hydralazine HCl 25 mg 07/22/24 11:15 Hydralazine Hcl 25 Mg Tablet PO QID PRN Hypertension Dextrose 1,000 mls @ 100 mls/hr 07/02/24 13:59 Dextrose 5% 1,000 Ml IVPB PRN PRN Hypoglycemia Protocol Dextrose 1,000 mls @ 50 mls/hr 07/13/24 08:07 Dextrose 10% IV CONT .Q20H PRN if PN is interrupted Fat Emulsion Intravenous 250 mls @ 20.833 mls/hr 07/13/24 09:30 07/20/24 22:40 Lipids 20% IVPB Infused Q24H VANDANA Infusion Megestrol Acetate 40 mg 07/21/24 17:00 07/23/24 16:39 Megestrol Acetate (*Chemo) 40 Mg Tablet PO 40 mg QID VANDANA Administration Naloxone HCl 0.1 mg 07/06/24 18:50 Naloxone Hcl 0.4 Mg/Ml Vial IV PUSH Q2M PRN Opiate Reversal Ondansetron HCl 4 mg 06/27/24 08:21 07/12/24 10:06 Ondansetron Inj 4 Mg/2 Ml Vial IV PUSH 4 mg Q4H PRN Administration Nausea Ondansetron HCl 4 mg 07/23/24 17:00 07/23/24 16:39 Ondansetron Hcl Odt 4 Mg Tablet PO 4 mg TID VANDANA Administration Pantoprazole Sodium 40 mg 07/16/24 09:00 07/23/24 08:38 Pantoprazole 40 Mg Tablet PO 40 mg QAM VANDANA Administration Potassium Chloride 40 meq 07/11/24 11:50 07/23/24 16:45 Potassium Chloride 20 Meq Packet (For Liquid) PO Not Given BID VANDANA Sertraline HCl 50 mg 07/22/24 09:00 07/23/24 08:38 Sertraline Hcl 50 Mg Tablet PO 50 mg QAM VANDANA Administration Sodium Bicarbonate 650 mg 07/10/24 17:00 07/23/24 16:39 Sodium Bicarbonate Tab 650 Mg Tablet PO 650 mg BID VANDANA Administration Sodium Chloride 10 ml 07/02/24 22:00 07/23/24 13:49 Central Line Flush IV PUSH 10 ml Q8HR VANDANA Administration Sodium Chloride 10 ml 07/02/24 15:38 07/04/24 14:13 Central Line Flush IV PUSH 10 ml PRN PRN Administration with TPN bag changes Sodium Chloride 20 ml 07/02/24 15:38 Central Line Flush IV PUSH PRN PRN after blood draws Thiamine HCl 100 mg 07/16/24 09:00 07/23/24 08:38 Thiamine Hcl 100 Mg Tablet PO 100 mg QAM VANDANA Administration Radiology Results: ITS Impressions Chest/Abdomen/Pelvis CTA 06/27/24 06:17 IMPRESSION: CHEST: 1. No pulmonary embolism. No aortic dissection 2. No acute cardiopulmonary pathology. ABDOMEN/PELVIS: 1. Small bowel obstruction with the transition zone in the terminal ileum area. Clinical correlation advised. 2. No evidence of appendicitis, or diverticulitis. Head CT 06/27/24 06:59 IMPRESSION: No acute intracranial findings. Cervical Spine CT 06/27/24 07:58 IMPRESSION: No acute osseous abnormality cervical spine. Multilevel degenerative disc disease. NG Tube Placement 07/02/24 07:18 IMPRESSION: Fluoroscopy used during NG tube placement in the stomach. Abdomen/Pelvis CT 07/07/24 05:20 Impression: Small amount of pneumoperitoneum, likely postoperative with evidence of recent midline incision stapling since prior exam. Correlate with surgical history. Bowel distention/bowel obstruction is essentially resolved as compared to prior exam. Small bowel evaluation is limited on the current exam due to extensive matting together of bowel loops. Small amount of ascites. Small pleural effusions with bibasilar pulmonary edema/atelectasis versus pneumonia. Correlate clinically. Chest X-Ray 07/08/24 13:34 Impression: 1: Developing patchy bilateral airspace disease, compatible with pneumonia. Venous Doppler Study 07/09/24 00:02 IMPRESSION: Negative right upper extremity venous US. No deep vein thrombosis. Upper GI Series 07/09/24 13:13 IMPRESSION: 1. No bowel obstruction or ileus with normal small bowel transit time and normal caliber and mucosal fold pattern to the small bowel. Abdomen X-Ray 07/15/24 06:41 Impression: Small bowel obstruction. Small Bowel X-Ray 07/15/24 12:57 IMPRESSION: 1. Normal small bowel follow-through. Labs Labs: Laboratory Results - last 24 hr 07/22/24 07/22/24 07/23/24 17:12 18:15 00:03 WBC RBC Hgb Hct MCV MCH MCHC RDW Plt Count MPV Sodium Potassium Chloride Carbon Dioxide Anion Gap BUN Creatinine Estim Creat Clear Calc Estimated GFR Glucose POC Capillary Glucose 122 H 114 H Calcium C. difficile (PCR) Negative 07/23/24 07/23/24 07/23/24 05:50 06:12 11:43 WBC 10.3 H RBC 2.88 L Hgb 8.8 L Hct 26.8 L MCV 93.1 MCH 30.6 MCHC 32.8 RDW 13.5 Plt Count 292 MPV 9.7 Sodium 130 L Potassium 4.4 Chloride 98 Carbon Dioxide 25 Anion Gap 7 BUN 11 Creatinine 0.54 L Estim Creat Clear Calc 109 Estimated GFR > 60 Glucose 104 POC Capillary Glucose 111 H 123 H Calcium 8.2 L C. difficile (PCR) Quality VTE Prophylaxis VTE prophylaxis: pharmacologic ordered Hospitalist [facility] Advance Care Plan I have confirmed that the patient's Advanced Care Plan is present, code status is documented, or surrogate decision maker is listed in patient medical record.: Yes Medication Reconciliation I have utilized all available resources to obtain, update and review the patients current medications (includes all prescriptions, OTC, herbals, cannabis, and nutritional supplements).: Yes
[2024-07-23 18:36] LABS: Glucose Point of Care 124 mg/dl (65-105)
[2024-07-23 20:35] VITALS: BP 129/65; PULSE 82; RESP 18; TEMP 36.6; O2SAT 97
[2024-07-24] VITALS (7 sets, daily range): BP systolic 114–148; BP diastolic 61–76; PULSE 77–96; RESP 14–20; TEMP 36.4–37.1; O2SAT 94–97
[2024-07-24 00:30] LABS: Glucose Point of Care 97 mg/dl (65-105)
[2024-07-24 05:56] LABS: Hematocrit 28.5 % (42.0-52.0); Hemoglobin 8.8 g/dL (14.0-18.0); Mean Corpuscular HGB Conc 30.9 g/dl (32-36); Mean Corpuscular Hemoglobin 29.5 pg (26-34); Mean Corpuscular Volume 95.6 fl (80-100); Mean Platelet Volume 10.5 fl (7.4-10.4); Platelet Count Result 262 k/mm3 (150-375); Red Blood Count 2.98 M/mm3 (4.6-6.20); Red Cell Distribution Width 13.6 % (11.5-14.5); White Blood Count 9.3 K/mm3 (4.5-10.0)
[2024-07-24 06:06] LABS: Anion Gap 5 mmol/L (4-12); Blood Urea Nitrogen 10 mg/dL (9-20); Calcium 8.2 mg/dL (8.4-10.2); Carbon Dioxide 25 mmol/L (22-30); Chloride 99 mmol/L (98-107); Estimated CRCL calculation 93 ml/min; Estimated Glomerular Filt Rate > 60; Glucose 87 mg/dL (65-110); Potassium 4.3 mmol/L (3.4-5.0); Sodium 129 mmol/L (137-145); Triglycerides 173 mg/dL (<150)
[2024-07-24] MEDS: CENTRAL LINE FLUSH 10 ML IV PUSH ×3 (06:44→21:45)
[2024-07-24] MEDS: ENOXAPARIN 40 MG/0.4 ML SYRINGE SUB-Q (08:01)
[2024-07-24] MEDS: POTASSIUM CHLORIDE 20 MEQ PACKET (FOR LIQUID) 40 MEQ PO ×2 (08:01→16:01)
[2024-07-24] MEDS: MEGESTROL ACETATE (*CHEMO) 40 MG TABLET PO ×4 (08:03→20:29)
[2024-07-24] MEDS: SERTRALINE HCL 50 MG TABLET PO (08:03)
[2024-07-24] MEDS: carvediloL 6.25 MG TABLET PO ×2 (08:03→20:29)
[2024-07-24] MEDS: ONDANSETRON HCL ODT 4 MG TABLET PO ×3 (08:03→16:01)
[2024-07-24] MEDS: THIAMINE HCL 100 MG TABLET PO (08:03)
[2024-07-24] MEDS: SODIUM BICARBONATE TAB 650 MG TABLET PO ×2 (08:03→16:01)
[2024-07-24] MEDS: PANTOPRAZOLE 40 MG TABLET PO (08:03)
[2024-07-24 09:48] LABS: Glucose Point of Care 99 mg/dl (65-105)
--- NOTE | 2024-07-24 11:26 | P.PNIM_ITS ---
Progress Note: A&P Assessment and Plan (1) Small bowel obstruction: Code(s): K56.609 - Unspecified intestinal obstruction, unspecified as to partial versus complete obstruction Status: Acute Assessment and Plan: OR on 07/06/[address] Shipman 4 lysis of adhesion with resection of the jejunal perforation with anastomosis. With wound vac placed. He had a small bowel series 07/15/2024 showed normal follow through. Patient passing gas and having BM's. * Diet advanced to soft diet * pain control * ambulate as tolerated * Antiemetics * PT/OT * Advance diet as tolerated * Continue scheduled zofran TID * Continue Megace for now * Stopped TPN 07/23. Monitoring intake Calorie count in progress Encourage family to bring food from home that patient can chew (2) Hypertension: Code(s): I10 - Essential (primary) hypertension Status: Acute Assessment and Plan: patient has been hypertensive systolics running between 180s to 160s. patient does not take any hypertensive medications at home will re-evaluate prior to discharge if patient will need oral antihypertensive medications at discharge after current acute issues are resolved. Transition to oral medications now that he is tolerating diet * Has been getting hydralazine 20 mg IV push as needed for systolics greater than 160, none recently. Stop IV hydralazine since not symptomatic and taking PO. * Changed metoprolol 25mg to carvedilol 6.25mg BID and blood pressure currently controlled. Titrate as needec * Hydralazine 25mg q6 prn for SBP <180 (3) Hypokalemia: Code(s): E87.6 - Hypokalemia Status: Acute Assessment and Plan: * Replete prn * 3.9 07/22, 07/24 4.1 (4) Chronic alcohol use: Code(s): F10.90 - Alcohol use, unspecified, uncomplicated Status: Chronic Assessment and Plan: Stable Does not appear in withdrawal at this time will continue to monitor * Last drink 06/23 * Thiamine, folic acid, and multi-vitamin * PPI daily * librium PRN * CIWA daily * No sign of withdrawal (5) ORTEGA (acute kidney injury): Code(s): N17.9 - Acute kidney failure, unspecified Status: Resolved Assessment and Plan: * Acute kidney injury CR 1.98 POA since resolved with IV fluids. * 07/24 creatinine 0.65 (6) Hyponatremia: Code(s): E87.1 - Hypo-osmolality and hyponatremia Status: Resolved Assessment and Plan: Flucturating sodium, has been hypernatremic. now 129-133 in the last week * 129 on 07/19, 130 07/22, likely secondary to Clinimix (stopped 07/23) * 07/24 129 FEna pending (7) Anemia: Code(s): D64.9 - Anemia, unspecified Status: Acute Assessment and Plan: * Post-op * 07/24 hbg 8.8 is stable Plan Code status: Full code per patient DVT prophylaxis: Lovenox Stress ulcer prophylaxis: Protonix 40 daily PT/OT notes: Ambulatory Subjective Date/time seen: 07/24/24 11:26 Interval history: Denied pain except for tenderness around abdominal wound. Denied chest pain or shortness of breath. Denied GI or difficulties. Denied abnormal bleeding. Tolerating food brought in from home. Currently eating chicken with dressing. Review of Systems Review of Systems: All systems reviewed & are unremarkable except as noted in HPI and below Exam Narrative: HEENT: PERRL, sclerae nonicteric, pharyngeal mucosa pink and intact NECK: No JVD CHEST: Clear to auscultation. Normal effort. HEART: NL S1/S2, regular, no murmur ABDOMEN: BS+, soft, tender around abdominal wound, no mass, no bruits EXTREMITIES: No cyanosis, edema, or clubbing NEUROLOGIC: CN intact and symmetric to inspection. MUSCULOSKELETAL: Tone and strength symmetric. PSYCH: Alert. Oriented to person, place, and time. Objective Data Vital Signs Vital Signs: Vital Signs - 24 hr 07/23/24 13:48 07/23/24 20:35 07/24/24 06:10 Temperature 97.2 F L 98 F 98.3 F Pulse Rate 85 82 83 Respiratory Rate 16 18 20 Blood Pressure 124/68 129/65 148/73 H Pulse Oximetry 96 97 94 Oxygen Delivery 07/24/24 08:00 07/24/24 08:03 Temperature Pulse Rate 96 96 Respiratory Rate Blood Pressure Pulse Oximetry 94 Oxygen Delivery Room Air Intake/Output Intake/Output: Intake & Output 07/21/24 07/22/24 07/23/24 07/24/24 23:59 23:59 23:59 23:59 Intake Total 1182.5 1436 1902.5 390 Output Total 1999 7887 1930 830 Balance -817.5 -739 -847.5 -440 Meds/Results Medications: Active Medications Generic Name Dose Route Start Last Admin Trade Name Freq PRN Reason Stop Dose Admin Acetaminophen 650 mg 07/15/24 15:21 Acetaminophen 325 Mg Tablet PO Q6H PRN Mild Pain (1-3) or Fever Alteplase, Recombinant 2 mg 07/11/24 05:49 07/19/24 14:48 Alteplase 2 Mg Vial (Cathflo) IV PUSH 2 mg ONCE PRN Administration Line Occlusion Carvedilol 6.25 mg 07/22/24 21:00 07/24/24 08:03 Carvedilol 6.25 Mg Tablet PO 6.25 mg Q12HR VANDANA Administration Dextrose 12.5 gm 07/02/24 13:59 Dextrose 50% 25 Gm/50 Ml Syringe IV PUSH PRN PRN Hypoglycemia Protocol Enoxaparin Sodium 40 mg 06/29/24 09:00 07/24/24 08:01 Enoxaparin 40 Mg/0.4 Ml Syringe SUB-Q 40 mg DAILY VANDANA Administration Glucagon 1 mg 07/02/24 13:59 Glucagon For Inj 1 Mg Vial IM PRN PRN Hypoglycemia Protocol Glucose 15 gm 07/02/24 13:59 Glucose Oral Gel 15 Gm Of Glucse In 37.5 Gm Tube PO PRN PRN Hypoglycemia Protocol Hydralazine HCl 25 mg 07/22/24 11:15 Hydralazine Hcl 25 Mg Tablet PO QID PRN Hypertension Dextrose 1,000 mls @ 100 mls/hr 07/02/24 13:59 Dextrose 5% 1,000 Ml IVPB PRN PRN Hypoglycemia Protocol Dextrose 1,000 mls @ 50 mls/hr 07/13/24 08:07 Dextrose 10% IV CONT .Q20H PRN if PN is interrupted Fat Emulsion Intravenous 250 mls @ 20.833 mls/hr 07/13/24 09:30 07/20/24 22:40 Lipids 20% IVPB Infused Q24H VANDANA Infusion Megestrol Acetate 40 mg 07/21/24 17:00 07/24/24 08:03 Megestrol Acetate (*Chemo) 40 Mg Tablet PO 40 mg QID VANDANA Administration Naloxone HCl 0.1 mg 07/06/24 18:50 Naloxone Hcl 0.4 Mg/Ml Vial IV PUSH Q2M PRN Opiate Reversal Ondansetron HCl 4 mg 06/27/24 08:21 07/12/24 10:06 Ondansetron Inj 4 Mg/2 Ml Vial IV PUSH 4 mg Q4H PRN Administration Nausea Ondansetron HCl 4 mg 07/23/24 17:00 07/24/24 08:03 Ondansetron Hcl Odt 4 Mg Tablet PO 4 mg TID VANDANA Administration Pantoprazole Sodium 40 mg 07/16/24 09:00 07/24/24 08:03 Pantoprazole 40 Mg Tablet PO 40 mg QAM VANDANA Administration Potassium Chloride 40 meq 07/11/24 11:50 07/24/24 08:01 Potassium Chloride 20 Meq Packet (For Liquid) PO 40 meq BID VANDANA Administration Sertraline HCl 50 mg 07/22/24 09:00 07/24/24 08:03 Sertraline Hcl 50 Mg Tablet PO 50 mg QAM VANDANA Administration Sodium Bicarbonate 650 mg 07/10/24 17:00 07/24/24 08:03 Sodium Bicarbonate Tab 650 Mg Tablet PO 650 mg BID VANDANA Administration Sodium Chloride 10 ml 07/02/24 22:00 07/24/24 06:44 Central Line Flush IV PUSH 10 ml Q8HR VANDANA Administration Sodium Chloride 10 ml 07/02/24 15:38 07/04/24 14:13 Central Line Flush IV PUSH 10 ml PRN PRN Administration with TPN bag changes Sodium Chloride 20 ml 07/02/24 15:38 Central Line Flush IV PUSH PRN PRN after blood draws Thiamine HCl 100 mg 07/16/24 09:00 07/24/24 08:03 Thiamine Hcl 100 Mg Tablet PO 100 mg QAM VANDANA Administration Radiology Results: ITS Impressions Chest/Abdomen/Pelvis CTA 06/27/24 06:17 IMPRESSION: CHEST: 1. No pulmonary embolism. No aortic dissection 2. No acute cardiopulmonary pathology. ABDOMEN/PELVIS: 1. Small bowel obstruction with the transition zone in the terminal ileum area. Clinical correlation advised. 2. No evidence of appendicitis, or diverticulitis. Head CT 06/27/24 06:59 IMPRESSION: No acute intracranial findings. Cervical Spine CT 06/27/24 07:58 IMPRESSION: No acute osseous abnormality cervical spine. Multilevel degenerative disc disease. NG Tube Placement 07/02/24 07:18 IMPRESSION: Fluoroscopy used during NG tube placement in the stomach. Abdomen/Pelvis CT 07/07/24 05:20 Impression: Small amount of pneumoperitoneum, likely postoperative with evidence of recent midline incision stapling since prior exam. Correlate with surgical history. Bowel distention/bowel obstruction is essentially resolved as compared to prior exam. Small bowel evaluation is limited on the current exam due to extensive matting together of bowel loops. Small amount of ascites. Small pleural effusions with bibasilar pulmonary edema/atelectasis versus pneumonia. Correlate clinically. Chest X-Ray 07/08/24 13:34 Impression: 1: Developing patchy bilateral airspace disease, compatible with pneumonia. Venous Doppler Study 07/09/24 00:02 IMPRESSION: Negative right upper extremity venous US. No deep vein thrombosis. Upper GI Series 07/09/24 13:13 IMPRESSION: 1. No bowel obstruction or ileus with normal small bowel transit time and normal caliber and mucosal fold pattern to the small bowel. Abdomen X-Ray 07/15/24 06:41 Impression: Small bowel obstruction. Small Bowel X-Ray 07/15/24 12:57 IMPRESSION: 1. Normal small bowel follow-through. Labs Labs: Laboratory Results - last 24 hr 07/23/24 07/23/24 07/24/24 11:43 18:33 00:26 WBC RBC Hgb Hct MCV MCH MCHC RDW Plt Count MPV Sodium Potassium Chloride Carbon Dioxide Anion Gap BUN Creatinine Estim Creat Clear Calc Estimated GFR Glucose POC Capillary Glucose 123 H 124 H 97 Calcium Triglycerides 07/24/24 07/24/24 05:35 09:42 WBC 9.3 RBC 2.98 L Hgb 8.8 L Hct 28.5 L MCV 95.6 MCH 29.5 MCHC 30.9 L RDW 13.6 Plt Count 262 MPV 10.5 H Sodium 129 L Potassium 4.3 Chloride 99 Carbon Dioxide 25 Anion Gap 5 BUN 10 Creatinine 0.65 L Estim Creat Clear Calc 93 Estimated GFR > 60 Glucose 87 POC Capillary Glucose 99 Calcium 8.2 L Triglycerides 173 H
[2024-07-24 12:00] LABS: Glucose Point of Care 102 mg/dl (65-105)
--- NOTE | 2024-07-24 12:58 | P.PN_ITS ---
Progress Note: A&P Assessment and Plan (1) Protein-calorie malnutrition, severe: Code(s): E43 - Unspecified severe protein-calorie malnutrition Status: Acute Assessment and Plan: Nutrition is better. TPN was stopped yesterday. He is starting to eat solid food better. Continue calorie count. (2) Small bowel obstruction: Code(s): K56.609 - Unspecified intestinal obstruction, unspecified as to partial versus complete obstruction Status: Acute Assessment and Plan: Resolved after exploratory laparotomy x2 and resection of small bowel x1. Ileus postoperative has finally resolved. Having bowel movements. (3) Open abdominal incision with drainage: Qualifiers: Encounter type: subsequent encounter Qualified Code(s): T81.321D - Disruption or dehiscence of closure of internal operation (surgical) wound of abdominal wall muscle or fascia, subsequent encounter Code(s): T81.321A - Disruption or dehiscence of closure of internal operation (surgical) wound of abdominal wall muscle or fascia, initial encounter Status: Chronic Assessment and Plan: Wound VAC in place. Wound VAC to be changed Friday. Continue wound VAC over the weekend. (4) Altered mental status: Qualifiers: Altered mental status type: unspecified Qualified Code(s): R41.82 - Altered mental status, unspecified Code(s): R41.82 - Altered mental status, unspecified Status: Acute Assessment and Plan: Sensorium is much improved. Seems to be answering questions appropriately and not confused. Subjective Date/time seen: 07/24/24 12:58 Interval history: Patient looks good. Much more alert today. Seems to be answering questions a ppropriately. His family brought him some chicken and dressing from home and he is eating that. Having bowel movements. White blood count is normal. No fever. Wound VAC in place on the midline incision. Exam GI: Other: Abdomen is soft and nondistended. Wound VAC in place and midline incision. Minimal drainage. No redness. Objective Data Vital Signs Vital Signs: Vital Signs - 24 hr 07/23/24 13:48 07/23/24 20:35 07/24/24 06:10 Temperature 36.2 C L 36.6 C 36.8 C Pulse Rate 85 82 83 Respiratory Rate 16 18 20 Blood Pressure 124/68 129/65 148/73 H Pulse Oximetry 96 97 94 Oxygen Delivery 07/24/24 08:00 07/24/24 08:03 Temperature Pulse Rate 96 96 Respiratory Rate Blood Pressure Pulse Oximetry 94 Oxygen Delivery Room Air Intake/Output Intake/Output: Intake & Output 07/21/24 07/22/24 07/23/24 07/24/24 23:59 23:59 23:59 23:59 Intake Total 1182.5 1436 1902.5 510 Output Total 1999 6885 9020 830 Balance -817.5 -739 -847.5 -320 Meds/Results Medications: Active Medications Generic Name Dose Route Start Last Admin Trade Name Freq PRN Reason Stop Dose Admin Acetaminophen 650 mg 07/15/24 15:21 Acetaminophen 325 Mg Tablet PO Q6H PRN Mild Pain (1-3) or Fever Alteplase, Recombinant 2 mg 07/11/24 05:49 07/19/24 14:48 Alteplase 2 Mg Vial (Cathflo) IV PUSH 2 mg ONCE PRN Administration Line Occlusion Carvedilol 6.25 mg 07/22/24 21:00 07/24/24 08:03 Carvedilol 6.25 Mg Tablet PO 6.25 mg Q12HR VANDANA Administration Dextrose 12.5 gm 07/02/24 13:59 Dextrose 50% 25 Gm/50 Ml Syringe IV PUSH PRN PRN Hypoglycemia Protocol Enoxaparin Sodium 40 mg 06/29/24 09:00 07/24/24 08:01 Enoxaparin 40 Mg/0.4 Ml Syringe SUB-Q 40 mg DAILY VANDANA Administration Glucagon 1 mg 07/02/24 13:59 Glucagon For Inj 1 Mg Vial IM PRN PRN Hypoglycemia Protocol Glucose 15 gm 07/02/24 13:59 Glucose Oral Gel 15 Gm Of Glucse In 37.5 Gm Tube PO PRN PRN Hypoglycemia Protocol Hydralazine HCl 25 mg 07/22/24 11:15 Hydralazine Hcl 25 Mg Tablet PO QID PRN Hypertension Dextrose 1,000 mls @ 100 mls/hr 07/02/24 13:59 Dextrose 5% 1,000 Ml IVPB PRN PRN Hypoglycemia Protocol Dextrose 1,000 mls @ 50 mls/hr 07/13/24 08:07 Dextrose 10% IV CONT .Q20H PRN if PN is interrupted Fat Emulsion Intravenous 250 mls @ 20.833 mls/hr 07/13/24 09:30 07/20/24 22:40 Lipids 20% IVPB Infused Q24H VANDANA Infusion Megestrol Acetate 40 mg 07/21/24 17:00 07/24/24 12:34 Megestrol Acetate (*Chemo) 40 Mg Tablet PO 40 mg QID VANDANA Administration Naloxone HCl 0.1 mg 07/06/24 18:50 Naloxone Hcl 0.4 Mg/Ml Vial IV PUSH Q2M PRN Opiate Reversal Ondansetron HCl 4 mg 06/27/24 08:21 07/12/24 10:06 Ondansetron Inj 4 Mg/2 Ml Vial IV PUSH 4 mg Q4H PRN Administration Nausea Ondansetron HCl 4 mg 07/23/24 17:00 07/24/24 12:34 Ondansetron Hcl Odt 4 Mg Tablet PO 4 mg TID VANDANA Administration Pantoprazole Sodium 40 mg 07/16/24 09:00 07/24/24 08:03 Pantoprazole 40 Mg Tablet PO 40 mg QAM VANDANA Administration Potassium Chloride 40 meq 07/11/24 11:50 07/24/24 08:01 Potassium Chloride 20 Meq Packet (For Liquid) PO 40 meq BID VANDANA Administration Sertraline HCl 50 mg 07/22/24 09:00 07/24/24 08:03 Sertraline Hcl 50 Mg Tablet PO 50 mg QAM VANDANA Administration Sodium Bicarbonate 650 mg 07/10/24 17:00 07/24/24 08:03 Sodium Bicarbonate Tab 650 Mg Tablet PO 650 mg BID VANDANA Administration Sodium Chloride 10 ml 07/02/24 22:00 07/24/24 12:35 Central Line Flush IV PUSH 10 ml Q8HR VANDANA Administration Sodium Chloride 10 ml 07/02/24 15:38 07/04/24 14:13 Central Line Flush IV PUSH 10 ml PRN PRN Administration with TPN bag changes Sodium Chloride 20 ml 07/02/24 15:38 Central Line Flush IV PUSH PRN PRN after blood draws Thiamine HCl 100 mg 07/16/24 09:00 07/24/24 08:03 Thiamine Hcl 100 Mg Tablet PO 100 mg QAM VANDANA Administration Radiology Results: ITS Impressions Chest/Abdomen/Pelvis CTA 06/27/24 06:17 IMPRESSION: CHEST: 1. No pulmonary embolism. No aortic dissection 2. No acute cardiopulmonary pathology. ABDOMEN/PELVIS: 1. Small bowel obstruction with the transition zone in the terminal ileum area. Clinical correlation advised. 2. No evidence of appendicitis, or diverticulitis. Head CT 06/27/24 06:59 IMPRESSION: No acute intracranial findings. Cervical Spine CT 06/27/24 07:58 IMPRESSION: No acute osseous abnormality cervical spine. Multilevel degenerative disc disease. NG Tube Placement 07/02/24 07:18 IMPRESSION: Fluoroscopy used during NG tube placement in the stomach. Abdomen/Pelvis CT 07/07/24 05:20 Impression: Small amount of pneumoperitoneum, likely postoperative with evidence of recent midline incision stapling since prior exam. Correlate with surgical history. Bowel distention/bowel obstruction is essentially resolved as compared to prior exam. Small bowel evaluation is limited on the current exam due to extensive matting together of bowel loops. Small amount of ascites. Small pleural effusions with bibasilar pulmonary edema/atelectasis versus pneumonia. Correlate clinically. Chest X-Ray 07/08/24 13:34 Impression: 1: Developing patchy bilateral airspace disease, compatible with pneumonia. Venous Doppler Study 07/09/24 00:02 IMPRESSION: Negative right upper extremity venous US. No deep vein thrombosis. Upper GI Series 07/09/24 13:13 IMPRESSION: 1. No bowel obstruction or ileus with normal small bowel transit time and normal caliber and mucosal fold pattern to the small bowel. Abdomen X-Ray 07/15/24 06:41 Impression: Small bowel obstruction. Small Bowel X-Ray 07/15/24 12:57 IMPRESSION: 1. Normal small bowel follow-through. Labs Labs: Laboratory Results - last 24 hr 07/23/24 07/24/24 07/24/24 18:33 00:26 05:35 WBC 9.3 RBC 2.98 L Hgb 8.8 L Hct 28.5 L MCV 95.6 MCH 29.5 MCHC 30.9 L RDW 13.6 Plt Count 262 MPV 10.5 H Sodium 129 L Potassium 4.3 Chloride 99 Carbon Dioxide 25 Anion Gap 5 BUN 10 Creatinine 0.65 L Estim Creat Clear Calc 93 Estimated GFR > 60 Glucose 87 POC Capillary Glucose 124 H 97 Calcium 8.2 L Triglycerides 173 H 07/24/24 07/24/24 09:42 11:47 WBC RBC Hgb Hct MCV MCH MCHC RDW Plt Count MPV Sodium Potassium Chloride Carbon Dioxide Anion Gap BUN Creatinine Estim Creat Clear Calc Estimated GFR Glucose POC Capillary Glucose 99 102 Calcium Triglycerides
[2024-07-24 17:58] LABS: Glucose Point of Care 98 mg/dl (65-105)
[2024-07-24 18:02] LABS: Creatinine Urine 77.3 mg/dL
[2024-07-24 18:03] LABS: Sodium Urine Random 107 meq/L
[2024-07-25 00:16] LABS: Glucose Point of Care 104 mg/dl (65-105)
[2024-07-25 05:15] LABS: Glucose Point of Care 93 mg/dl (65-105)
[2024-07-25 05:55] VITALS: BP 128/68; PULSE 76; RESP 14; TEMP 36.6; O2SAT 95
[2024-07-25] MEDS: CENTRAL LINE FLUSH 10 ML IV PUSH ×3 (06:00→20:17)
[2024-07-25 06:22] LABS: Hematocrit 26.8 % (42.0-52.0); Hemoglobin 8.7 g/dL (14.0-18.0); Mean Corpuscular HGB Conc 32.5 g/dl (32-36); Mean Corpuscular Hemoglobin 29.8 pg (26-34); Mean Corpuscular Volume 91.8 fl (80-100); Mean Platelet Volume 10.4 fl (7.4-10.4); Platelet Count Result 269 k/mm3 (150-375); Red Blood Count 2.92 M/mm3 (4.6-6.20); Red Cell Distribution Width 13.5 % (11.5-14.5); White Blood Count 10.2 K/mm3 (4.5-10.0)
[2024-07-25 06:36] LABS: Anion Gap 5 mmol/L (4-12); Blood Urea Nitrogen 7 mg/dL (9-20); Carbon Dioxide 23 mmol/L (22-30); Chloride 99 mmol/L (98-107); Estimated CRCL calculation 91 ml/min; Estimated Glomerular Filt Rate > 60; Glucose 91 mg/dL (65-110); Sodium 127 mmol/L (137-145)
[2024-07-25 07:06] LABS: Cortisol Random 6.58 ug/dL
[2024-07-25 08:00] VITALS: PULSE 78; O2SAT 96
[2024-07-25] MEDS: THIAMINE HCL 100 MG TABLET PO (08:13)
[2024-07-25] MEDS: MEGESTROL ACETATE (*CHEMO) 40 MG TABLET PO ×4 (08:13→20:17)
[2024-07-25] MEDS: SODIUM CHLORIDE 0.9% IV 1,000 ML 100 ML IV CONT (08:13)
[2024-07-25] MEDS: ENOXAPARIN 40 MG/0.4 ML SYRINGE SUB-Q (08:13)
[2024-07-25 08:14] VITALS: PULSE 78
[2024-07-25] MEDS: ONDANSETRON HCL ODT 4 MG TABLET PO ×3 (08:14→17:24)
[2024-07-25] MEDS: SERTRALINE HCL 50 MG TABLET PO (08:14)
[2024-07-25] MEDS: PANTOPRAZOLE 40 MG TABLET PO (08:14)
[2024-07-25] MEDS: carvediloL 6.25 MG TABLET PO ×2 (08:14→20:17)
--- NOTE | 2024-07-25 10:44 | P.PNIM_ITS ---
Progress Note: A&P Assessment and Plan (1) Small bowel obstruction: Code(s): K56.609 - Unspecified intestinal obstruction, unspecified as to partial versus complete obstruction Status: Acute Assessment and Plan: OR on 07/06/[address] Shipman 4 lysis of adhesion with resection of the jejunal perforation with anastomosis. With wound vac placed. He had a small bowel series 07/15/2024 showed normal follow through. Patient passing gas and having BM's. * Diet advanced to soft diet * pain control * ambulate as tolerated * Antiemetics * PT/OT * Advance diet as tolerated * Continue scheduled zofran TID * Continue Megace for now * Stopped TPN 07/23. Monitoring intake Calorie count in progress Encourage family to bring food from home that patient can chew (2) Hypertension: Code(s): I10 - Essential (primary) hypertension Status: Acute Assessment and Plan: patient has been hypertensive systolics running between 180s to 160s. patient does not take any hypertensive medications at home will re-evaluate prior to discharge if patient will need oral antihypertensive medications at discharge after current acute issues are resolved. Transition to oral medications now that he is tolerating diet * Has been getting hydralazine 20 mg IV push as needed for systolics greater than 160, none recently. Stop IV hydralazine since not symptomatic and taking PO. * Changed metoprolol 25mg to carvedilol 6.25mg BID and blood pressure currently controlled. Titrate as needec * Hydralazine 25mg q6 prn for SBP >180 (3) Hyponatremia: Code(s): E87.1 - Hypo-osmolality and hyponatremia Status: Resolved Assessment and Plan: Flucturating sodium, has been hypernatremic. now 129-133 in the last week * 129 on 07/19, 130 07/22, likely secondary to Clinimix (stopped 07/23) * 07/24 129 FEna 0.7%, c/w prerenal * 07/25 IV NS and f/u Na ordered (4) Hypokalemia: Code(s): E87.6 - Hypokalemia Status: Acute Assessment and Plan: * Replete prn * 3.9 5, 07/24 4.1, 07/25 4.0 (5) Chronic alcohol use: Code(s): F10.90 - Alcohol use, unspecified, uncomplicated Status: Chronic Assessment and Plan: Stable Does not appear in withdrawal at this time will continue to monitor * Last drink 06/23 * Thiamine, folic acid, and multi-vitamin * PPI daily * librium PRN * CIWA daily * No sign of withdrawal (6) ORTEGA (acute kidney injury): Code(s): N17.9 - Acute kidney failure, unspecified Status: Resolved Assessment and Plan: * Acute kidney injury CR 1.98 POA since resolved with IV fluids. * 07/24 creatinine 0.65 (7) Anemia: Code(s): D64.9 - Anemia, unspecified Status: Acute Assessment and Plan: * Post-op * 07/24 hbg 8.8 is stable, 07/25 8.7 Plan Subjective Date/time seen: 07/25/24 10:44 Interval history: Denied pain except for tenderness around abdominal wound. Denied chest pain or shortness of breath. Denied GI or difficulties. Denied abnormal bleeding. Tolerated food brought in from home. Appetite improving. Review of Systems Review of Systems: All systems reviewed & are unremarkable except as noted in HPI and below Exam Narrative: HEENT: PERRL, sclerae nonicteric, pharyngeal mucosa pink and intact NECK: No JVD CHEST: Clear to auscultation. Normal effort. HEART: NL S1/S2, regular, no murmur ABDOMEN: BS+, soft, tender around abdominal wound, no mass, no bruits EXTREMITIES: No cyanosis, edema, or clubbing NEUROLOGIC: CN intact and symmetric to inspection. MUSCULOSKELETAL: Tone and strength symmetric. PSYCH: Alert. Oriented to person, place, and time. Objective Data Vital Signs Vital Signs: Vital Signs - 24 hr 07/24/24 14:00 07/24/24 20:00 07/24/24 20:29 Temperature 98.8 F Pulse Rate 77 80 Respiratory Rate 18 Blood Pressure 114/76 Pulse Oximetry 97 Oxygen Delivery Room Air Fraction of Inspired Oxygen 07/24/24 21:18 07/24/24 22:00 07/25/24 05:55 Temperature 97.6 F 97.8 F Pulse Rate 77 80 76 Respiratory Rate 20 14 14 Blood Pressure 131/61 128/68 Pulse Oximetry 96 94 95 Oxygen Delivery Room Air Fraction of Inspired Oxygen 21 07/25/24 08:14 07/25/24 09:10 07/25/24 09:19 Temperature Pulse Rate 78 Respiratory Rate Blood Pressure Pulse Oximetry Oxygen Delivery Room Air Room Air Fraction of Inspired Oxygen Intake/Output Intake/Output: Intake & Output 07/22/24 07/23/24 07/24/24 07/25/24 23:59 23:59 23:59 23:59 Intake Total 1436 1902.5 510 436 Output Total 2175 2750 1330 600 [facility] -739 -[phone] [phone] Meds/Results Medications: Active Medications Generic Name Dose Route Start Last Admin Trade Name Freq PRN Reason Stop Dose Admin Acetaminophen 650 mg 07/15/24 15:21 Acetaminophen 325 Mg Tablet PO Q6H PRN Mild Pain (1-3) or Fever Alteplase, Recombinant 2 mg 07/11/24 05:49 07/19/24 14:48 Alteplase 2 Mg Vial (Cathflo) IV PUSH 2 mg ONCE PRN Administration Line Occlusion Carvedilol 6.25 mg 07/22/24 21:00 07/25/24 08:14 Carvedilol 6.25 Mg Tablet PO 6.25 mg Q12HR VANDANA Administration Dextrose 12.5 gm 07/02/24 13:59 Dextrose 50% 25 Gm/50 Ml Syringe IV PUSH PRN PRN Hypoglycemia Protocol Enoxaparin Sodium 40 mg 06/29/24 09:00 07/25/24 08:13 Enoxaparin 40 Mg/0.4 Ml Syringe SUB-Q 40 mg DAILY VANDANA Administration Glucagon 1 mg 07/02/24 13:59 Glucagon For Inj 1 Mg Vial IM PRN PRN Hypoglycemia Protocol Glucose 15 gm 07/02/24 13:59 Glucose Oral Gel 15 Gm Of Glucse In 37.5 Gm Tube PO PRN PRN Hypoglycemia Protocol Hydralazine HCl 25 mg 07/22/24 11:15 Hydralazine Hcl 25 Mg Tablet PO QID PRN Hypertension Dextrose 1,000 mls @ 100 mls/hr 07/02/24 13:59 Dextrose 5% 1,000 Ml IVPB PRN PRN Hypoglycemia Protocol Dextrose 1,000 mls @ 50 mls/hr 07/13/24 08:07 Dextrose 10% IV CONT .Q20H PRN if PN is interrupted Sodium Chloride 1,000 mls @ 100 mls/hr 07/25/24 07:35 07/25/24 08:13 Normal Saline Iv IV CONT 07/25/24 17:34 100 mls/hr .Q10H VANDANA Administration Megestrol Acetate 40 mg 07/21/24 17:00 07/25/24 08:13 Megestrol Acetate (*Chemo) 40 Mg Tablet PO 40 mg QID VANDANA Administration Naloxone HCl 0.1 mg 07/06/24 18:50 Naloxone Hcl 0.4 Mg/Ml Vial IV PUSH Q2M PRN Opiate Reversal Ondansetron HCl 4 mg 06/27/24 08:21 07/12/24 10:06 Ondansetron Inj 4 Mg/2 Ml Vial IV PUSH 4 mg Q4H PRN Administration Nausea Ondansetron HCl 4 mg 07/23/24 17:00 07/25/24 08:14 Ondansetron Hcl Odt 4 Mg Tablet PO 4 mg TID VANDANA Administration Pantoprazole Sodium 40 mg 07/16/24 09:00 07/25/24 08:14 Pantoprazole 40 Mg Tablet PO 40 mg QAM VANDANA Administration Potassium Chloride 40 meq 07/11/24 11:50 07/25/24 08:14 Potassium Chloride 20 Meq Packet (For Liquid) PO Not Given BID VANDANA Sertraline HCl 50 mg 07/22/24 09:00 07/25/24 08:14 Sertraline Hcl 50 Mg Tablet PO 50 mg QAM VANDANA Administration Sodium Chloride 10 ml 07/02/24 22:00 07/25/24 06:00 Central Line Flush IV PUSH 10 ml Q8HR VANDANA Administration Sodium Chloride 10 ml 07/02/24 15:38 07/04/24 14:13 Central Line Flush IV PUSH 10 ml PRN PRN Administration with TPN bag changes Sodium Chloride 20 ml 07/02/24 15:38 Central Line Flush IV PUSH PRN PRN after blood draws Thiamine HCl 100 mg 07/16/24 09:00 07/25/24 08:13 Thiamine Hcl 100 Mg Tablet PO 100 mg QAM VANDANA Administration Radiology Results: ITS Impressions Chest/Abdomen/Pelvis CTA 06/27/24 06:17 IMPRESSION: CHEST: 1. No pulmonary embolism. No aortic dissection 2. No acute cardiopulmonary pathology. ABDOMEN/PELVIS: 1. Small bowel obstruction with the transition zone in the terminal ileum area. Clinical correlation advised. 2. No evidence of appendicitis, or diverticulitis. Head CT 06/27/24 06:59 IMPRESSION: No acute intracranial findings. Cervical Spine CT 06/27/24 07:58 IMPRESSION: No acute osseous abnormality cervical spine. Multilevel degenerative disc disease. NG Tube Placement 07/02/24 07:18 IMPRESSION: Fluoroscopy used during NG tube placement in the stomach. Abdomen/Pelvis CT 07/07/24 05:20 Impression: Small amount of pneumoperitoneum, likely postoperative with evidence of recent midline incision stapling since prior exam. Correlate with surgical history. Bowel distention/bowel obstruction is essentially resolved as compared to prior exam. Small bowel evaluation is limited on the current exam due to extensive matting together of bowel loops. Small amount of ascites. Small pleural effusions with bibasilar pulmonary edema/atelectasis versus pneumonia. Correlate clinically. Chest X-Ray 07/08/24 13:34 Impression: 1: Developing patchy bilateral airspace disease, compatible with pneumonia. Venous Doppler Study 07/09/24 00:02 IMPRESSION: Negative right upper extremity venous US. No deep vein thrombosis. Upper GI Series 07/09/24 13:13 IMPRESSION: 1. No bowel obstruction or ileus with normal small bowel transit time and normal caliber and mucosal fold pattern to the small bowel. Abdomen X-Ray 07/15/24 06:41 Impression: Small bowel obstruction. Small Bowel X-Ray 07/15/24 12:57 IMPRESSION: 1. Normal small bowel follow-through. Labs Labs: Laboratory Results - last 24 hr 07/24/24 07/24/24 07/24/24 11:47 17:47 17:50 WBC RBC Hgb Hct MCV MCH MCHC RDW Plt Count MPV Sodium Potassium Chloride Carbon Dioxide Anion Gap BUN Creatinine Estim Creat Clear Calc Estimated GFR Glucose POC Capillary Glucose 102 98 Calcium Random Cortisol Ur Random Sodium 107 Urine Creatinine 77.3 07/25/24 07/25/24 07/25/24 00:06 04:51 05:54 WBC 10.2 H RBC 2.92 L Hgb 8.7 L Hct 26.8 L MCV 91.8 MCH 29.8 MCHC 32.5 RDW 13.5 Plt Count 269 MPV 10.4 Sodium 127 L Potassium 4.0 Chloride 99 Carbon Dioxide 23 Anion Gap 5 BUN 7 L Creatinine 0.66 L Estim Creat Clear Calc 91 Estimated GFR > 60 Glucose 91 POC Capillary Glucose 104 93 Calcium 8.0 L Random Cortisol 6.58 Ur Random Sodium Urine Creatinine
[2024-07-25 11:57] LABS: Glucose Point of Care 93 mg/dl (65-105)
--- NOTE | 2024-07-25 13:14 | WPDPN ---
Progress Note: A&P Assessment and Plan (1) Protein-calorie malnutrition, severe: Code(s): E43 - Unspecified severe protein-calorie malnutrition Status: Acute Assessment and Plan: PO intake is slowly increasing. Calorie count still ongoing. Continue to encourage Ensure supplements. (2) Small bowel obstruction: Code(s): K56.609 - Unspecified intestinal obstruction, unspecified as to partial versus complete obstruction Status: Acute Assessment and Plan: Resolved. He has not had a bowel movement. Continue supportive management. (3) Open abdominal incision with drainage: Qualifiers: Encounter type: subsequent encounter Qualified Code(s): T81.321D - Disruption or dehiscence of closure of internal operation (surgical) wound of abdominal wall muscle or fascia, subsequent encounter Code(s): T81.321A - Disruption or dehiscence of closure of internal operation (surgical) wound of abdominal wall muscle or fascia, initial encounter Status: Chronic Assessment and Plan: Wound VAC in place the midline incision. No evidence of ongoing infection. Wound VAC to be changed tomorrow by wound care nurses. Subjective Date/time seen: 07/25/24 13:14 Interval history: Patient without acute changes. Again appears to converse easily today. No overt confusion. Seems to be oriented times [address] and person but not time. Looks like he ate 1/3 to 1/2 of his lunch tray. Calorie count still ongoing. Vitals are stable. White blood count is normal. Exam GI: Other: Abdomen is a little distended. Wound VAC in place. No drainage the wound VAC. No redness of the skin. Output from the wound VAC is minimal. Objective Data Vital Signs Vital Signs: Vital Signs - 24 hr 07/24/24 14:00 07/24/24 20:00 07/24/24 20:29 Temperature 37.1 C Pulse Rate 77 80 Respiratory Rate 18 Blood Pressure 114/76 Pulse Oximetry 97 Oxygen Delivery Room Air Fraction of Inspired Oxygen 07/24/24 21:18 07/24/24 22:00 07/25/24 05:55 Temperature 36.4 C 36.6 C Pulse Rate 77 80 76 Respiratory Rate 20 14 14 Blood Pressure 131/61 128/68 Pulse Oximetry 96 94 95 Oxygen Delivery Room Air Fraction of Inspired Oxygen 07/25/24 08:00 07/25/24 08:14 07/25/24 09:10 Temperature Pulse Rate 78 78 Respiratory Rate Blood Pressure Pulse Oximetry 96 Oxygen Delivery Room Air Room Air Fraction of Inspired Oxygen 07/25/24 09:19 Temperature Pulse Rate Respiratory Rate Blood Pressure Pulse Oximetry Oxygen Delivery Room Air Fraction of Inspired Oxygen Intake/Output Intake/Output: Intake & Output 07/22/24 07/23/24 07/24/24 07/25/24 23:59 23:59 23:59 23:59 Intake Total 1436 1902.5 510 436 Output Total 2175 2750 1330 600 Balance -739 -847.5 -820 -164 Meds/Results Medications: Active Medications Generic Name Dose Route Start Last Admin Trade Name Freq PRN Reason Stop Dose Admin Acetaminophen 650 mg 07/15/24 15:21 Acetaminophen 325 Mg Tablet PO Q6H PRN Mild Pain (1-3) or Fever Alteplase, Recombinant 2 mg 07/11/24 05:49 07/19/24 14:48 Alteplase 2 Mg Vial (Cathflo) IV PUSH 2 mg ONCE PRN Administration Line Occlusion Carvedilol 6.25 mg 07/22/24 21:00 07/25/24 08:14 Carvedilol 6.25 Mg Tablet PO 6.25 mg Q12HR VANDANA Administration Dextrose 12.5 gm 07/02/24 13:59 Dextrose 50% 25 Gm/50 Ml Syringe IV PUSH PRN PRN Hypoglycemia Protocol Enoxaparin Sodium 40 mg 06/29/24 09:00 07/25/24 08:13 Enoxaparin 40 Mg/0.4 Ml Syringe SUB-Q 40 mg DAILY VANDANA Administration Glucagon 1 mg 07/02/24 13:59 Glucagon For Inj 1 Mg Vial IM PRN PRN Hypoglycemia Protocol Glucose 15 gm 07/02/24 13:59 Glucose Oral Gel 15 Gm Of Glucse In 37.5 Gm Tube PO PRN PRN Hypoglycemia Protocol Hydralazine HCl 25 mg 07/22/24 11:15 Hydralazine Hcl 25 Mg Tablet PO QID PRN Hypertension Dextrose 1,000 mls @ 100 mls/hr 07/02/24 13:59 Dextrose 5% 1,000 Ml IVPB PRN PRN Hypoglycemia Protocol Dextrose 1,000 mls @ 50 mls/hr 07/13/24 08:07 Dextrose 10% IV CONT .Q20H PRN if PN is interrupted Sodium Chloride 1,000 mls @ 100 mls/hr 07/25/24 07:35 07/25/24 08:13 Normal Saline Iv IV CONT 07/25/24 17:34 100 mls/hr .Q10H VANDANA Administration Megestrol Acetate 40 mg 07/21/24 17:00 07/25/24 13:06 Megestrol Acetate (*Chemo) 40 Mg Tablet PO 40 mg QID VANDANA Administration Naloxone HCl 0.1 mg 07/06/24 18:50 Naloxone Hcl 0.4 Mg/Ml Vial IV PUSH Q2M PRN Opiate Reversal Ondansetron HCl 4 mg 06/27/24 08:21 07/12/24 10:06 Ondansetron Inj 4 Mg/2 Ml Vial IV PUSH 4 mg Q4H PRN Administration Nausea Ondansetron HCl 4 mg 07/23/24 17:00 07/25/24 13:06 Ondansetron Hcl Odt 4 Mg Tablet PO 4 mg TID VANDANA Administration Pantoprazole Sodium 40 mg 07/16/24 09:00 07/25/24 08:14 Pantoprazole 40 Mg Tablet PO 40 mg QAM VANDANA Administration Potassium Chloride 40 meq 07/11/24 11:50 07/25/24 08:14 Potassium Chloride 20 Meq Packet (For Liquid) PO Not Given BID VANDANA Sertraline HCl 50 mg 07/22/24 09:00 07/25/24 08:14 Sertraline Hcl 50 Mg Tablet PO 50 mg QAM VANDANA Administration Sodium Chloride 10 ml 07/02/24 22:00 07/25/24 13:06 Central Line Flush IV PUSH 10 ml Q8HR VANDANA Administration Sodium Chloride 10 ml 07/02/24 15:38 07/04/24 14:13 Central Line Flush IV PUSH 10 ml PRN PRN Administration with TPN bag changes Sodium Chloride 20 ml 07/02/24 15:38 Central Line Flush IV PUSH PRN PRN after blood draws Thiamine HCl 100 mg 07/16/24 09:00 07/25/24 08:13 Thiamine Hcl 100 Mg Tablet PO 100 mg QAM VANDANA Administration Radiology Results: ITS Impressions Chest/Abdomen/Pelvis CTA 06/27/24 06:17 IMPRESSION: CHEST: 1. No pulmonary embolism. No aortic dissection 2. No acute cardiopulmonary pathology. ABDOMEN/PELVIS: 1. Small bowel obstruction with the transition zone in the terminal ileum area. Clinical correlation advised. 2. No evidence of appendicitis, or diverticulitis. Head CT 06/27/24 06:59 IMPRESSION: No acute intracranial findings. Cervical Spine CT 06/27/24 07:58 IMPRESSION: No acute osseous abnormality cervical spine. Multilevel degenerative disc disease. NG Tube Placement 07/02/24 07:18 IMPRESSION: Fluoroscopy used during NG tube placement in the stomach. Abdomen/Pelvis CT 07/07/24 05:20 Impression: Small amount of pneumoperitoneum, likely postoperative with evidence of recent midline incision stapling since prior exam. Correlate with surgical history. Bowel distention/bowel obstruction is essentially resolved as compared to prior exam. Small bowel evaluation is limited on the current exam due to extensive matting together of bowel loops. Small amount of ascites. Small pleural effusions with bibasilar pulmonary edema/atelectasis versus pneumonia. Correlate clinically. Chest X-Ray 07/08/24 13:34 Impression: 1: Developing patchy bilateral airspace disease, compatible with pneumonia. Venous Doppler Study 07/09/24 00:02 IMPRESSION: Negative right upper extremity venous US. No deep vein thrombosis. Upper GI Series 07/09/24 13:13 IMPRESSION: 1. No bowel obstruction or ileus with normal small bowel transit time and normal caliber and mucosal fold pattern to the small bowel. Abdomen X-Ray 07/15/24 06:41 Impression: Small bowel obstruction. Small Bowel X-Ray 07/15/24 12:57 IMPRESSION: 1. Normal small bowel follow-through. Labs Labs: Laboratory Results - last 24 hr 07/24/24 07/24/24 07/25/24 17:47 17:50 00:06 WBC RBC Hgb Hct MCV MCH MCHC RDW Plt Count MPV Sodium Potassium Chloride Carbon Dioxide Anion Gap BUN Creatinine Estim Creat Clear Calc Estimated GFR Glucose POC Capillary Glucose 98 104 Calcium Random Cortisol Ur Random Sodium 107 Urine Creatinine 77.3 07/25/24 07/25/24 07/25/24 04:51 05:54 11:55 WBC 10.2 H RBC 2.92 L Hgb 8.7 L Hct 26.8 L MCV 91.8 MCH 29.8 MCHC 32.5 RDW 13.5 Plt Count 269 MPV 10.4 Sodium 127 L Potassium 4.0 Chloride 99 Carbon Dioxide 23 Anion Gap 5 BUN 7 L Creatinine 0.66 L Estim Creat Clear Calc 91 Estimated GFR > 60 Glucose 91 POC Capillary Glucose 93 93 Calcium 8.0 L Random Cortisol 6.58 Ur Random Sodium Urine Creatinine
[2024-07-25 14:00] VITALS: BP 116/81; PULSE 81; RESP 18; TEMP 36.1; O2SAT 96
[2024-07-25 14:19] LABS: Sodium 127 mmol/L (137-145)
[2024-07-25 19:03] LABS: Glucose Point of Care 100 mg/dl (65-105)
[2024-07-25 21:11] VITALS: BP 126/78; PULSE 74; RESP 20; TEMP 36.7; O2SAT 96
[2024-07-26 06:00] VITALS: BP 128/74; PULSE 76; RESP 18; TEMP 36.6; O2SAT 96
[2024-07-26 06:06] LABS: Glucose Point of Care 92 mg/dl (65-105)
[2024-07-26 06:15] LABS: Basophils Absolute Auto 0.1 K/mm3 (0.0-0.1); Eosinophils Absolute Auto 0.3 K/mm3 (0-0.3); Eosinophils Percent Auto 3.7 % (0-4.4); Hematocrit 26.2 % (42.0-52.0); Hemoglobin 8.5 g/dL (14.0-18.0); Immature Granulocyte Absolute 0.02 K/mm3 (0.00-0.031); Immature Granulocyte Percent A 0.3 % (0-0.5); Lymphocytes Absolute Auto 1.56 K/mm3 (0.9-3.2); Lymphocytes Percent Auto 20.1 % (18.3-44.2); Mean Corpuscular HGB Conc 32.4 g/dl (32-36); Mean Corpuscular Hemoglobin 30.1 pg (26-34); Mean Corpuscular Volume 92.9 fl (80-100); Mean Platelet Volume 10.8 fl (7.4-10.4); Monocytes Absolute Auto 1.1 K/mm3 (0.1-0.6); Monocytes Percent Auto 13.7 % (2.6-8.5); Neutrophils Absolute Auto 4.8 K/mm3 (1.3-6.7); Neutrophils Percent Auto 61.2 % (45.5-73.1); Platelet Count Result 277 k/mm3 (150-375); Red Blood Count 2.82 M/mm3 (4.6-6.20); Red Cell Distribution Width 13.3 % (11.5-14.5); White Blood Count 7.8 K/mm3 (4.5-10.0)
[2024-07-26 06:40] LABS: Alanine Aminotransferase 19 U/L (6-50); Albumin Level 2.6 g/dL (3.5-5.1); Alkaline Phosphatase 105 U/L (38-126); Anion Gap 7 mmol/L (4-12); Aspartate Amino Transferase 25 U/L (17-59); Bilirubin,Total 0.7 mg/dL (0.2-1.3); Blood Urea Nitrogen 6 mg/dL (9-20); Calcium 8.2 mg/dL (8.4-10.2); Carbon Dioxide 21 mmol/L (22-30); Chloride 102 mmol/L (98-107); Estimated CRCL calculation 88 ml/min; Estimated Glomerular Filt Rate > 60; Glucose 87 mg/dL (65-110); Magnesium 1.7 mg/dL (1.6-2.3); Potassium 3.7 mmol/L (3.4-5.0); Sodium 130 mmol/L (137-145); Triglycerides 147 mg/dL (<150)
[2024-07-26 08:00] VITALS: PULSE 76; RESP 18; O2SAT 96
[2024-07-26] MEDS: POTASSIUM CHLORIDE 20 MEQ PACKET (FOR LIQUID) 40 MEQ PO ×3 (09:03→17:35)
[2024-07-26] MEDS: MEGESTROL ACETATE (*CHEMO) 40 MG TABLET PO ×4 (09:03→20:09)
[2024-07-26] MEDS: carvediloL 6.25 MG TABLET PO ×2 (09:03→20:09)
[2024-07-26] MEDS: THIAMINE HCL 100 MG TABLET PO (09:03)
[2024-07-26] MEDS: SERTRALINE HCL 50 MG TABLET PO (09:03)
[2024-07-26] MEDS: SODIUM CHLORIDE 1 GM TABLET PO ×2 (09:03→17:35)
[2024-07-26] MEDS: PANTOPRAZOLE 40 MG TABLET PO (09:04)
[2024-07-26] MEDS: ENOXAPARIN 40 MG/0.4 ML SYRINGE SUB-Q (09:04)
[2024-07-26] MEDS: ONDANSETRON HCL ODT 4 MG TABLET PO ×3 (09:04→17:35)
[2024-07-26 11:14] LABS: Glucose Point of Care 97 mg/dl (65-105)
--- NOTE | 2024-07-26 12:14 | P.PNIM_ITS ---
Progress Note: A&P Assessment and Plan (1) Small bowel obstruction: Code(s): K56.609 - Unspecified intestinal obstruction, unspecified as to partial versus complete obstruction Status: Acute Assessment and Plan: OR on 07/06/[address] Shipman 4 lysis of adhesion with resection of the jejunal perforation with anastomosis. With wound vac placed. He had a small bowel series 07/15/2024 showed normal follow through. Patient passing gas and having BM's. * Diet advanced to soft diet * pain control * ambulate as tolerated * Antiemetics * PT/OT * Advance diet as tolerated * Continue scheduled zofran TID * Continue Megace for now * Stopped TPN 07/23. Monitoring intake Calorie count in progress Encourage family to bring food from home that patient can chew (2) Hypertension: Code(s): I10 - Essential (primary) hypertension Status: Acute Assessment and Plan: patient has been hypertensive systolics running between 180s to 160s. patient does not take any hypertensive medications at home will re-evaluate prior to discharge if patient will need oral antihypertensive medications at discharge after current acute issues are resolved. Transition to oral medications now that he is tolerating diet * Has been getting hydralazine 20 mg IV push as needed for systolics greater than 160, none recently. Stop IV hydralazine since not symptomatic and taking PO. * Changed metoprolol 25mg to carvedilol 6.25mg BID and blood pressure currently controlled. Titrate as needec * Hydralazine 25mg q6 prn for SBP >180 (3) Hyponatremia: Code(s): E87.1 - Hypo-osmolality and hyponatremia Status: Resolved Assessment and Plan: Flucturating sodium, has been hypernatremic. now 129-133 in the last week * 129 on 07/19, 130 07/22, likely secondary to Clinimix (stopped 07/23) * 07/24 129 FEna 0.7%, c/w prerenal * 07/25 IV NS and f/u Na ordered (4) Hypokalemia: Code(s): E87.6 - Hypokalemia Status: Acute Assessment and Plan: * Replete prn * 3.9 07/22, 07/24 4.1, 07/25 4.0, 07/26 3.7 will supplement as patient has poor nutrition, (5) Chronic alcohol use: Code(s): F10.90 - Alcohol use, unspecified, uncomplicated Status: Chronic Assessment and Plan: Stable Does not appear in withdrawal at this time will continue to monitor * Last drink 06/23 * Thiamine, folic acid, and multi-vitamin * PPI daily * librium PRN * CIWA daily * No sign of withdrawal (6) ORTEGA (acute kidney injury): Code(s): N17.9 - Acute kidney failure, unspecified Status: Resolved Assessment and Plan: * Acute kidney injury CR 1.98 POA since resolved with IV fluids. * 07/24 creatinine 0.65, 07/26 0.69, (7) Anemia: Code(s): D64.9 - Anemia, unspecified Status: Acute Assessment and Plan: * Post-op * 07/24 hbg 8.8 is stable, 07/25 8.7, 07/26 8.5, Plan Denied pain except for tenderness around abdominal wound. Denied chest pain or shortness of breath. Denied GI or difficulties. Denied abnormal bleeding. Tolerated food brought in from home. Appetite improving as he is eating his breakfast and having regular BM. seen by surgery service and wound has VAC and healing. patient with history of alcohol abuse, does not show any sign of withdrawl, will continue to monitor. Subjective Date/time seen: 07/26/24 12:14 Interval history: Denied pain except for tenderness around abdominal wound. Denied chest pain or shortness of breath. Denied GI or difficulties. Denied abnormal bleeding. Tolerated food brought in from home. Appetite improving as he is eating his breakfast and having regular BM. seen by surgery service and wound has VAC and healing. patient with history of alcohol abuse, does not show any sign of withdrawl, will continue to monitor. Review of Systems Review of Systems: - CONSTITUTIONAL: Denies weight loss, fe gorge and chills. - HEENT: Denies changes in vision and he aring - RESPIRATORY: Denies SOB and cough. - CV: Denies palpitations and CP. - GI: Reports abdominal pain, nausea, v omiting and denies diarrhea. - : Denies dysuria and urinary frequen cy. - MSK: Denies myalgia and joint pain. - SKIN: Denies rash and pruritus. - NEUROLOGICAL: Denies headache and sync ope. - PSYCHIATRIC: Denies recent changes in mood. Denies anxiety and depression. Exam Narrative: Patient is comfortable, NAD HEENT: eyes are clear and none icteric LUNGS:CTA HEART: RR S1S2 ABD: BS+, Soft and nontender Lower extremities: no edema SKIN: nonjaundiced Neuro: grossly intact. Objective Data Vital Signs Vital Signs: Vital Signs - 24 hr 07/25/24 14:00 07/25/24 21:11 07/26/24 06:00 Temperature 36.1 C L 36.7 C 36.6 C Pulse Rate 81 74 76 Respiratory Rate 18 20 18 Blood Pressure 116/81 126/78 128/74 Pulse Oximetry 96 96 96 Oxygen Delivery Fraction of Inspired Oxygen 07/26/24 08:00 Temperature Pulse Rate 76 Respiratory Rate 18 Blood Pressure Pulse Oximetry 96 Oxygen Delivery Room Air Fraction of Inspired Oxygen 21 Intake/Output Intake/Output: Intake & Output 07/23/24 07/24/24 07/25/24 07/26/24 23:59 23:59 23:59 23:59 Intake Total 1902.5 510 1466 890 Output Total 2750 1330 2150 1100 Balance -847.5 -820 -684 -210 Meds/Results Medications: Active Medications Generic Name Dose Route Start Last Admin Trade Name Reynaldoq PRN Reason Stop Dose Admin Acetaminophen 650 mg 07/15/24 15:21 Acetaminophen 325 Mg Tablet PO Q6H PRN Mild Pain (1-3) or Fever Alteplase, Recombinant 2 mg 07/11/24 05:49 07/19/24 14:48 Alteplase 2 Mg Vial (Cathflo) IV PUSH 2 mg ONCE PRN Administration Line Occlusion Carvedilol 6.25 mg 07/22/24 21:00 07/26/24 09:03 Carvedilol 6.25 Mg Tablet PO 6.25 mg Q12HR VANDANA Administration Dextrose 12.5 gm 07/02/24 13:59 Dextrose 50% 25 Gm/50 Ml Syringe IV PUSH PRN PRN Hypoglycemia Protocol Enoxaparin Sodium 40 mg 06/29/24 09:00 07/26/24 09:04 Enoxaparin 40 Mg/0.4 Ml Syringe SUB-Q 40 mg DAILY VANDANA Administration Glucagon 1 mg 07/02/24 13:59 Glucagon For Inj 1 Mg Vial IM PRN PRN Hypoglycemia Protocol Glucose 15 gm 07/02/24 13:59 Glucose Oral Gel 15 Gm Of Glucse In 37.5 Gm Tube PO PRN PRN Hypoglycemia Protocol Hydralazine HCl 25 mg 07/22/24 11:15 Hydralazine Hcl 25 Mg Tablet PO QID PRN Hypertension Dextrose 1,000 mls @ 100 mls/hr 07/02/24 13:59 Dextrose 5% 1,000 Ml IVPB PRN PRN Hypoglycemia Protocol Dextrose 1,000 mls @ 50 mls/hr 07/13/24 08:07 Dextrose 10% IV CONT .Q20H PRN if PN is interrupted Megestrol Acetate 40 mg 07/21/24 17:00 07/26/24 09:03 Megestrol Acetate (*Chemo) 40 Mg Tablet PO 40 mg QID VANDANA Administration Naloxone HCl 0.1 mg 07/06/24 18:50 Naloxone Hcl 0.4 Mg/Ml Vial IV PUSH Q2M PRN Opiate Reversal Ondansetron HCl 4 mg 06/27/24 08:21 07/12/24 10:06 Ondansetron Inj 4 Mg/2 Ml Vial IV PUSH 4 mg Q4H PRN Administration Nausea Ondansetron HCl 4 mg 07/23/24 17:00 07/26/24 09:04 Ondansetron Hcl Odt 4 Mg Tablet PO 4 mg TID VANDANA Administration Pantoprazole Sodium 40 mg 07/16/24 09:00 07/26/24 09:04 Pantoprazole 40 Mg Tablet PO 40 mg QAM VANDANA Administration Potassium Chloride 40 meq 07/11/24 11:50 07/26/24 09:03 Potassium Chloride 20 Meq Packet (For Liquid) PO 40 meq BID VANDANA Administration Sertraline HCl 50 mg 07/22/24 09:00 07/26/24 09:03 Sertraline Hcl 50 Mg Tablet PO 50 mg QAM VANDANA Administration Sodium Chloride 10 ml 07/02/24 22:00 07/26/24 04:16 Central Line Flush IV PUSH Not Given Q8HR VANDANA Sodium Chloride 10 ml 07/02/24 15:38 07/04/24 14:13 Central Line Flush IV PUSH 10 ml PRN PRN Administration with TPN bag changes Sodium Chloride 20 ml 07/02/24 15:38 Central Line Flush IV PUSH PRN PRN after blood draws Sodium Chloride 1 gm 07/26/24 09:00 07/26/24 09:03 Sodium Chloride 1 Gm Tablet PO 1 gm BID VANDANA Administration Thiamine HCl 100 mg 07/16/24 09:00 07/26/24 09:03 Thiamine Hcl 100 Mg Tablet PO 100 mg QAM VANDANA Administration Radiology Results: ITS Impressions Chest/Abdomen/Pelvis CTA 06/27/24 06:17 IMPRESSION: CHEST: 1. No pulmonary embolism. No aortic dissection 2. No acute cardiopulmonary pathology. ABDOMEN/PELVIS: 1. Small bowel obstruction with the transition zone in the terminal ileum area. Clinical correlation advised. 2. No evidence of appendicitis, or diverticulitis. Head CT 06/27/24 06:59 IMPRESSION: No acute intracranial findings. Cervical Spine CT 06/27/24 07:58 IMPRESSION: No acute osseous abnormality cervical spine. Multilevel degenerative disc disease. NG Tube Placement 07/02/24 07:18 IMPRESSION: Fluoroscopy used during NG tube placement in the stomach. Abdomen/Pelvis CT 07/07/24 05:20 Impression: Small amount of pneumoperitoneum, likely postoperative with evidence of recent midline incision stapling since prior exam. Correlate with surgical history. Bowel distention/bowel obstruction is essentially resolved as compared to prior exam. Small bowel evaluation is limited on the current exam due to extensive matting together of bowel loops. Small amount of ascites. Small pleural effusions with bibasilar pulmonary edema/atelectasis versus pneumonia. Correlate clinically. Chest X-Ray 07/08/24 13:34 Impression: 1: Developing patchy bilateral airspace disease, compatible with pneumonia. Venous Doppler Study 07/09/24 00:02 IMPRESSION: Negative right upper extremity venous US. No deep vein thrombosis. Upper GI Series 07/09/24 13:13 IMPRESSION: 1. No bowel obstruction or ileus with normal small bowel transit time and normal caliber and mucosal fold pattern to the small bowel. Abdomen X-Ray 07/15/24 06:41 Impression: Small bowel obstruction. Small Bowel X-Ray 07/15/24 12:57 IMPRESSION: 1. Normal small bowel follow-through. Labs Labs: Laboratory Results - last 24 hr 07/25/24 07/25/24 07/26/24 14:03 18:59 05:15 WBC 7.8 RBC 2.82 L Hgb 8.5 L Hct 26.2 L MCV 92.9 MCH 30.1 MCHC 32.4 RDW 13.3 Plt Count 277 MPV 10.8 H Immature Gran % (Auto) 0.3 Neut % (Auto) 61.2 Lymph % (Auto) 20.1 [place] % (Auto) 13.7 H Eos % (Auto) 3.7 Baso % (Auto) 1.0 Lymph # (Auto) 1.56 [place] # (Auto) 1.1 H Eos # (Auto) 0.3 Baso # (Auto) 0.1 Abs Immat Gran (auto) 0.02 Absolute Neuts (auto) 4.8 Absolute Nucleated RBC 0.000 Nucleated RBC % 0.0 Sodium 127 L 130 L Potassium 3.7 Chloride 102 Carbon Dioxide 21 L Anion Gap 7 BUN 6 L Creatinine 0.69 L Estim Creat Clear Calc 88 Estimated GFR > 60 Glucose 87 POC Capillary Glucose 100 Calcium 8.2 L Magnesium 1.7 Total Bilirubin 0.7 AST 25 ALT 19 Alkaline Phosphatase 105 Total Protein 6.0 L Albumin 2.6 L Triglycerides 147 07/26/24 07/26/24 05:35 11:07 WBC RBC Hgb Hct MCV MCH MCHC RDW Plt Count MPV Immature Gran % (Auto) Neut % (Auto) Lymph % (Auto) [place] % (Auto) Eos % (Auto) Baso % (Auto) Lymph # (Auto) [place] # (Auto) Eos # (Auto) Baso # (Auto) Abs Immat Gran (auto) Absolute Neuts (auto) Absolute Nucleated RBC Nucleated RBC % Sodium Potassium Chloride Carbon Dioxide Anion Gap BUN Creatinine Estim Creat Clear Calc Estimated GFR Glucose POC Capillary Glucose 92 97 Calcium Magnesium Total Bilirubin AST ALT Alkaline Phosphatase Total Protein Albumin Triglycerides Quality VTE Prophylaxis VTE prophylaxis: pharmacologic ordered
--- NOTE | 2024-07-26 13:47 | PM.PNGS ---
Progress Note: A&P Assessment and Plan (1) Small bowel obstruction: Code(s): K56.609 - Unspecified intestinal obstruction, unspecified as to partial versus complete obstruction Status: Resolved Assessment and Plan: Normal exam and having BM's. Eating more off TPN. (2) Open abdominal incision with drainage: Qualifiers: Encounter type: subsequent encounter Qualified Code(s): T81.321D - Disruption or dehiscence of closure of internal operation (surgical) wound of abdominal wall muscle or fascia, subsequent encounter Code(s): T81.321A - Disruption or dehiscence of closure of internal operation (surgical) wound of abdominal wall muscle or fascia, initial encounter Status: Chronic Assessment and Plan: Wound vac working well. Can go to [facility] or [facility]SNF on wet to dry dressings then restart wound vac there. OK to participate in any and all PT/OT. (3) Protein-calorie malnutrition, severe: Code(s): E43 - Unspecified severe protein-calorie malnutrition Status: Acute Assessment and Plan: eating a little more off TPN. I think he's getting in enough calories with supplements to leave TPN off and transfer. Albumen cont to increase and abdominal wound cont to heal well--signs of adequate nutritional intake. (4) Altered mental status: Qualifiers: Altered mental status type: unspecified Qualified Code(s): R41.82 - Altered mental status, unspecified Code(s): R41.82 - Altered mental status, unspecified Status: Acute Assessment and Plan: Much better. More alert, more lucid. Nearly back to normal. (5) Chronic alcohol use: Code(s): F10.90 - Alcohol use, unspecified, uncomplicated Status: Chronic Assessment and Plan: Now abstinent for 29 days. Subjective Subjective Date/Time Seen: 07/26/24 13:47 Patient reports: no new complaints, pain is less, tolerating a regular diet (better, still not good appetite), voiding w/o difficulty, bowel movement and afebrile Exam Const: General: comfortable, alert, awake and thin Orientation/consciousness: No confusion GI: Inspection: incision (continues to granulate and heal well, smaller, less depth) GI Palp: Yes Soft to palpation, No Tenderness to palpation present (GI), No Guarding due to palpation present (GI), No Hernia present and No Palpable mass present Objective Data Vital Signs Vital Signs: Vital Signs - 24 hr 07/25/24 14:00 07/25/24 21:11 07/26/24 06:00 Temperature 36.1 C L 36.7 C 36.6 C Pulse Rate 81 74 76 Respiratory Rate 18 20 18 Blood Pressure 116/81 126/78 128/74 Pulse Oximetry 96 96 96 Oxygen Delivery Fraction of Inspired Oxygen 07/26/24 08:00 Temperature Pulse Rate 76 Respiratory Rate 18 Blood Pressure Pulse Oximetry 96 Oxygen Delivery Room Air Fraction of Inspired Oxygen 21 Intake/Output Intake/Output: Intake & Output 07/23/24 07/24/24 07/25/24 07/26/24 23:59 23:59 23:59 23:59 Intake Total 1902.5 510 1466 990 Output Total 2750 1330 2150 1100 Balance -847.5 -820 -684 -110 Meds/Results Medications: Active Medications Generic Name Dose Route Start Last Admin Trade Name Freq PRN Reason Stop Dose Admin Acetaminophen 650 mg 07/15/24 15:21 Acetaminophen 325 Mg Tablet PO Q6H PRN Mild Pain (1-3) or Fever Alteplase, Recombinant 2 mg 07/11/24 05:49 07/19/24 14:48 Alteplase 2 Mg Vial (Cathflo) IV PUSH 2 mg ONCE PRN Administration Line Occlusion Carvedilol 6.25 mg 07/22/24 21:00 07/26/24 09:03 Carvedilol 6.25 Mg Tablet PO 6.25 mg Q12HR VANDANA Administration Dextrose 12.5 gm 07/02/24 13:59 Dextrose 50% 25 Gm/50 Ml Syringe IV PUSH PRN PRN Hypoglycemia Protocol Enoxaparin Sodium 40 mg 06/29/24 09:00 07/26/24 09:04 Enoxaparin 40 Mg/0.4 Ml Syringe SUB-Q 40 mg DAILY VANDANA Administration Glucagon 1 mg 07/02/24 13:59 Glucagon For Inj 1 Mg Vial IM PRN PRN Hypoglycemia Protocol Glucose 15 gm 07/02/24 13:59 Glucose Oral Gel 15 Gm Of Glucse In 37.5 Gm Tube PO PRN PRN Hypoglycemia Protocol Hydralazine HCl 25 mg 07/22/24 11:15 Hydralazine Hcl 25 Mg Tablet PO QID PRN Hypertension Dextrose 1,000 mls @ 100 mls/hr 07/02/24 13:59 Dextrose 5% 1,000 Ml IVPB PRN PRN Hypoglycemia Protocol Dextrose 1,000 mls @ 50 mls/hr 07/13/24 08:07 Dextrose 10% IV CONT .Q20H PRN if PN is interrupted Megestrol Acetate 40 mg 07/21/24 17:00 07/26/24 09:03 Megestrol Acetate (*Chemo) 40 Mg Tablet PO 40 mg QID VANDANA Administration Naloxone HCl 0.1 mg 07/06/24 18:50 Naloxone Hcl 0.4 Mg/Ml Vial IV PUSH Q2M PRN Opiate Reversal Ondansetron HCl 4 mg 06/27/24 08:21 07/12/24 10:06 Ondansetron Inj 4 Mg/2 Ml Vial IV PUSH 4 mg Q4H PRN Administration Nausea Ondansetron HCl 4 mg 07/23/24 17:00 07/26/24 09:04 Ondansetron Hcl Odt 4 Mg Tablet PO 4 mg TID VANDANA Administration Pantoprazole Sodium 40 mg 07/16/24 09:00 07/26/24 09:04 Pantoprazole 40 Mg Tablet PO 40 mg QAM VANDANA Administration Potassium Chloride 40 meq 07/11/24 11:50 07/26/24 09:03 Potassium Chloride 20 Meq Packet (For Liquid) PO 40 meq BID VANDANA Administration Sertraline HCl 50 mg 07/22/24 09:00 07/26/24 09:03 Sertraline Hcl 50 Mg Tablet PO 50 mg QAM VANDANA Administration Sodium Chloride 10 ml 07/02/24 22:00 07/26/24 04:16 Central Line Flush IV PUSH Not Given Q8HR VANDANA Sodium Chloride 10 ml 07/02/24 15:38 07/04/24 14:13 Central Line Flush IV PUSH 10 ml PRN PRN Administration with TPN bag changes Sodium Chloride 20 ml 07/02/24 15:38 Central Line Flush IV PUSH PRN PRN after blood draws Sodium Chloride 1 gm 07/26/24 09:00 07/26/24 09:03 Sodium Chloride 1 Gm Tablet PO 1 gm BID VANDANA Administration Thiamine HCl 100 mg 07/16/24 09:00 07/26/24 09:03 Thiamine Hcl 100 Mg Tablet PO 100 mg QAM VANDANA Administration Radiology Results: ITS Impressions Chest/Abdomen/Pelvis CTA 06/27/24 06:17 IMPRESSION: CHEST: 1. No pulmonary embolism. No aortic dissection 2. No acute cardiopulmonary pathology. ABDOMEN/PELVIS: 1. Small bowel obstruction with the transition zone in the terminal ileum area. Clinical correlation advised. 2. No evidence of appendicitis, or diverticulitis. Head CT 06/27/24 06:59 IMPRESSION: No acute intracranial findings. Cervical Spine CT 06/27/24 07:58 IMPRESSION: No acute osseous abnormality cervical spine. Multilevel degenerative disc disease. NG Tube Placement 07/02/24 07:18 IMPRESSION: Fluoroscopy used during NG tube placement in the stomach. Abdomen/Pelvis CT 07/07/24 05:20 Impression: Small amount of pneumoperitoneum, likely postoperative with evidence of recent midline incision stapling since prior exam. Correlate with surgical history. Bowel distention/bowel obstruction is essentially resolved as compared to prior exam. Small bowel evaluation is limited on the current exam due to extensive matting together of bowel loops. Small amount of ascites. Small pleural effusions with bibasilar pulmonary edema/atelectasis versus pneumonia. Correlate clinically. Chest X-Ray 07/08/24 13:34 Impression: 1: Developing patchy bilateral airspace disease, compatible with pneumonia. Venous Doppler Study 07/09/24 00:02 IMPRESSION: Negative right upper extremity venous US. No deep vein thrombosis. Upper GI Series 07/09/24 13:13 IMPRESSION: 1. No bowel obstruction or ileus with normal small bowel transit time and normal caliber and mucosal fold pattern to the small bowel. Abdomen X-Ray 07/15/24 06:41 Impression: Small bowel obstruction. Small Bowel X-Ray 07/15/24 12:57 IMPRESSION: 1. Normal small bowel follow-through. Labs Labs: Laboratory Results - last 24 hr 07/25/24 07/25/24 07/26/24 14:03 18:59 05:15 WBC 7.8 RBC 2.82 L Hgb 8.5 L Hct 26.2 L MCV 92.9 MCH 30.1 MCHC 32.4 RDW 13.3 Plt Count 277 MPV 10.8 H Immature Gran % (Auto) 0.3 Neut % (Auto) 61.2 Lymph % (Auto) 20.1 [place] % (Auto) 13.7 H Eos % (Auto) 3.7 Baso % (Auto) 1.0 Lymph # (Auto) 1.56 [place] # (Auto) 1.1 H Eos # (Auto) 0.3 Baso # (Auto) 0.1 Abs Immat Gran (auto) 0.02 Absolute Neuts (auto) 4.8 Absolute Nucleated RBC 0.000 Nucleated RBC % 0.0 Sodium 127 L 130 L Potassium 3.7 Chloride 102 Carbon Dioxide 21 L Anion Gap 7 BUN 6 L Creatinine 0.69 L Estim Creat Clear Calc 88 Estimated GFR > 60 Glucose 87 POC Capillary Glucose 100 Calcium 8.2 L Magnesium 1.7 Total Bilirubin 0.7 AST 25 ALT 19 Alkaline Phosphatase 105 Total Protein 6.0 L Albumin 2.6 L Triglycerides 147 07/26/24 07/26/24 05:35 11:07 WBC RBC Hgb Hct MCV MCH MCHC RDW Plt Count MPV Immature Gran % (Auto) Neut % (Auto) Lymph % (Auto) [place] % (Auto) Eos % (Auto) Baso % (Auto) Lymph # (Auto) [place] # (Auto) Eos # (Auto) Baso # (Auto) Abs Immat Gran (auto) Absolute Neuts (auto) Absolute Nucleated RBC Nucleated RBC % Sodium Potassium Chloride Carbon Dioxide Anion Gap BUN Creatinine Estim Creat Clear Calc Estimated GFR Glucose POC Capillary Glucose 92 97 Calcium Magnesium Total Bilirubin AST ALT Alkaline Phosphatase Total Protein Albumin Triglycerides
[2024-07-26 14:00] VITALS: BP 117/76; PULSE 78; RESP 18; TEMP 36.7; O2SAT 98
[2024-07-26] MEDS: CENTRAL LINE FLUSH 10 ML IV PUSH ×2 (14:35→20:09)
[2024-07-26 17:30] LABS: Glucose Point of Care 94 mg/dl (65-105)
[2024-07-26 21:20] VITALS: BP 121/64; PULSE 78; RESP 13; TEMP 36.7; O2SAT 97
[2024-07-26 23:38] LABS: Glucose Point of Care 95 mg/dl (65-105)
[2024-07-27 04:48] LABS: Glucose Point of Care 96 mg/dl (65-105)
[2024-07-27 05:20] VITALS: BP 130/71; PULSE 74; RESP 12; TEMP 36.6; O2SAT 97
[2024-07-27 07:42] VITALS: PULSE 74; RESP 12; O2SAT 97
[2024-07-27] MEDS: SERTRALINE HCL 50 MG TABLET PO (08:07)
[2024-07-27] MEDS: ENOXAPARIN 40 MG/0.4 ML SYRINGE SUB-Q (08:07)
[2024-07-27] MEDS: SODIUM CHLORIDE 1 GM TABLET PO (08:07)
[2024-07-27] MEDS: carvediloL 6.25 MG TABLET PO (08:07)
[2024-07-27] MEDS: POTASSIUM CHLORIDE 20 MEQ PACKET (FOR LIQUID) 40 MEQ PO (08:07)
[2024-07-27] MEDS: PANTOPRAZOLE 40 MG TABLET PO (08:07)
[2024-07-27] MEDS: ONDANSETRON HCL ODT 4 MG TABLET PO (08:07)
[2024-07-27] MEDS: MEGESTROL ACETATE (*CHEMO) 40 MG TABLET PO (08:07)
[2024-07-27] MEDS: THIAMINE HCL 100 MG TABLET PO (08:07)
--- NOTE | 2024-07-27 08:43 | P.DS_ITS ---
DS: Admitting Diagnosis Discharge Date 07/27/2024 Admitting Diagnosis Abdominal pain DS: Discharge Diagnosis Discharge Diagnosis (1) Small bowel obstruction: Code(s): K56.609 - Unspecified intestinal obstruction, unspecified as to partial versus complete obstruction Status: Resolved Assessment and Plan: OR on 07/06/[address] Shipman 4 lysis of adhesion with resection of the jejunal perforation with anastomosis. With wound vac placed. He had a small bowel series 07/15/2024 showed normal follow through. Patient passing gas and having BM's. * Diet advanced to soft diet * pain control * ambulate as tolerated * Antiemetics * PT/OT * Advance diet as tolerated * Continue scheduled zofran TID * Continue Megace for now * Stopped TPN 07/23. Monitoring intake Calorie count in progress Encourage family to bring food from home that patient can chew (2) Hypertension: Code(s): I10 - Essential (primary) hypertension Status: Acute Assessment and Plan: patient has been hypertensive systolics running between 180s to 160s. patient does not take any hypertensive medications at home will re-evaluate prior to dis charge if patient will need oral antihypertensive medications at discharge after current acute issues are resolved. Transition to oral medications now that he is tolerating diet * Has been getting hydralazine 20 mg IV push as needed for systolics greater than 160, none recently. Stop IV hydralazine since not symptomatic and taking PO. * Changed metoprolol 25mg to carvedilol 6.25mg BID and blood pressure currently controlled. Titrate as needec * Hydralazine 25mg q6 prn for SBP >180 (3) Hyponatremia: Code(s): E87.1 - Hypo-osmolality and hyponatremia Status: Resolved Assessment and Plan: Flucturating sodium, has been hypernatremic. now 129-133 in the last week * 129 on 07/19, 130 07/22, likely secondary to Clinimix (stopped 07/23) * 07/24 129 FEna 0.7%, c/w prerenal * 07/25 IV NS and f/u Na ordered (4) Hypokalemia: Code(s): E87.6 - Hypokalemia Status: Acute Assessment and Plan: * Replete prn * 3.9 5/, 07/24 4.1, 07/25 4.0, 07/26 3.7 will supplement as patient has poor nutrition, (5) Chronic alcohol use: Code(s): F10.90 - Alcohol use, unspecified, uncomplicated Status: Chronic Assessment and Plan: Stable Does not appear in withdrawal at this time will continue to monitor * Last drink 06/23 * Thiamine, folic acid, and multi-vitamin * PPI daily * librium PRN * CIWA daily * No sign of withdrawal (6) ORTEGA (acute kidney injury): Code(s): N17.9 - Acute kidney failure, unspecified Status: Resolved Assessment and Plan: * Acute kidney injury CR 1.98 POA since resolved with IV fluids. * 07/24 creatinine 0.65, 07/26 0.69, (7) Anemia: Code(s): D64.9 - Anemia, unspecified Status: Acute Assessment and Plan: * Post-op * 07/24 hbg 8.8 is stable, 07/25 8.7, 07/26 8.5, Plan Denied pain except for tenderness around abdominal wound. Denied chest pain or shortness of breath. Denied GI or difficulties. Denied abnormal bleeding. Tolerated food brought in from home. Appetite improving as he is eating his breakfast and having regular BM. seen by surgery service and wound has VAC and healing. patient with history of alcohol abuse, does not show any sign of withdrawl, will continue to monitor. DS: Summary Hospital Course Hospital Course: patient is 64 y/o with history of chronic alcohol use presented with abdominal pain and was found to have small bowl obstruction in the area of terminal ileum, 2/2 possibly due to de Vern adhesion, patient was seen by surgery service and place NG tube to decompress distended abdomen. However patient symptoms were not improving and to further evaluate patient had x-ray of the abdomen again which showed SBO, patient was seen by the surgeon and patient had expletory laparotomy however patient symptoms were not improving, patient was again taken to OR and showed numerous dense and difficulty adhesions and surgical repair, since then patient clinical symptoms have improved and he tolerating regualat diet, while in the hospital patient BP was elevated, his metoprolol was switched to Corge 6.25mg BID, and BP improved. patient was also found to have malnutrition due to poor PO intake as patient did not have much appetite possibly due to chronic use of alcohol, patient was started on megace which helped and patient food intake is improve, patient was seen by surgery service, he has wound VAC and his wound is healing, he is clinically improving will discharge to rehab at [facility]. Time Spent with Patient Time attestation: Total time spent providing and/or coordinating discharge services: Exam Narrative: Patient is comfortable, NAD HEENT: eyes are clear and none icteric LUNGS:CTA HEART: RR S1S2 ABD: BS+, Soft and nontender Lower extremities: no edema SKIN: nonjaundiced Neuro: grossly intact. Const: General: comfortable and no acute distress HENMT: Mouth: Yes moist mucous membranes Eyes: General: appearance normal, both eyes and all related structures Pupils: Equal, round and reactive pupils present Neck: Neck: supple and no JVD Resp: Effort & Inspection: normal respiratory effort Auscultation: clear to auscultation bilaterally Cardio: Rate: regular rate Rhythm: regular rhythm GI: Auscultation: abnormal bowel sounds (hypoactive) Other: Midline incision with wound vac in place Skin: General skin exam: normal color Neuro: General: gait normal Cranial nerves: Yes Equal, round and reactive pupils present Speech: normal speech Extrem: General: normal to inspection Psych: Mental Status: mental status grossly normal Affect: normal affect DS: Data Data Completed and Pending Completed studies during hospitalization: Pending at discharge 07/06/24 16:56 Surgical [PTH] Routine Labs on day of discharge: Labs from last 24 hours 07/27/24 07/26/24 07/26/24 04:41 23:34 17:28 POC Capillary Glucose 96 95 94 07/26/24 11:07 POC Capillary Glucose 97 Discharge Plan Discharge Attending physician on discharge: Margarita Vazquez Consulting providers: Romario Araujo; Alessia Aquino; Jeanmarie Plata Discharging Clinician: Brandin Allen Patient Disposition: Hospital Swing Bed Activity: as tolerated Diet: heart healthy Discharge Instructions: patient to follow discharge care instruction from his surgeon and follow up as scheduled, patient to follow up with his primary care provider as soon as possible. Patient Instructions: Antibiotic Form Patient Language: Welsh Stand Alone Forms: General Discharge Information Follow-up/Referrals: PHYSICIAN,SECTION LEADER AND MACHINE SETTER [Primary Care Provider] - Jeanmarie Plata MD [Physician] - Discharge Medications: New enoxaparin [Lovenox] 40 mg/0.4 mL Syringe 40 mg subcut DAILY Qty: 4 0RF naloxone 0.4 mg/mL Solution 0.1 mg IV PUSH Q2M PRN (Reason: Opiate Reversal) Qty: 10 0RF Cathflo Activase 2 mg Recon Soln 2 mg IV PUSH ONCE PRN (Reason: Line Occlusion) Qty: 1 0RF pantoprazole 40 mg Tablet,Delayed Release (Dr/Ec) 40 mg PO QAM Qty: 30 0RF hydralazine 25 mg Tablet 25 mg PO QID PRN (Reason: Hypertension) Qty: 30 0RF sodium chloride 1,000 mg Tablet,Soluble 1,000 mg PO BID Qty: 30 0RF potassium chloride 20 mEq Packet 40 meq PO BID Qty: 30 0RF acetaminophen 325 mg Tablet 650 mg PO Q6H PRN (Reason: Mild Pain (1-3) Or Fever) Qty: 30 0RF thiamine HCl (vitamin B1) [Vitamin B-1] 100 mg Tablet 100 mg PO QAM Qty: 30 0RF megestrol 40 mg Tablet 40 mg PO QID Qty: 30 0RF sertraline [Zoloft] 50 mg Tablet 50 mg PO QAM Qty: 30 0RF carvedilol [Coreg] 6.25 mg Tablet 6.25 mg PO Q12HR Qty: 60 0RF ondansetron 4 mg Tablet,Disintegrating 4 mg PO TID Qty: 30 0RF No Action No Home Medications Date of admission: 06/28/24 10:17 Primary Care Provider: PHYSICIAN,SECTION LEADER AND MACHINE SETTER Admitting Provider: Lilibeth Rodriguez Attending physician on admission: Margarita Vazquez Condition: Stable
--- NOTE | 2024-07-27 10:30 | PM.PNGS ---
Progress Note: A&P Assessment and Plan (1) Small bowel obstruction: Code(s): K56.609 - Unspecified intestinal obstruction, unspecified as to partial versus complete obstruction Status: Resolved Assessment and Plan: Normal exam and having BM's. Eating more off TPN. Okay to transfer to [facility] with intermediate at [facility]. (2) Open abdominal incision with drainage: Qualifiers: Encounter type: subsequent encounter Qualified Code(s): T81.321D - Disruption or dehiscence of closure of internal operation (surgical) wound of abdominal wall muscle or fascia, subsequent encounter Code(s): T81.321A - Disruption or dehiscence of closure of internal operation (surgical) wound of abdominal wall muscle or fascia, initial encounter Status: Chronic Assessment and Plan: Patient will be on wet to dry dressings twice a day until wound VAC can be arranged at [facility] and [facility]. Wound healing well at this time (3) Protein-calorie malnutrition, severe: Code(s): E43 - Unspecified severe protein-calorie malnutrition Status: Acute Assessment and Plan: eating a little more off TPN. I think he's getting in enough calories with supplements to leave TPN off and transfer. Albumen cont to increase and abdominal wound cont to heal well--signs of adequate nutritional intake. (4) Altered mental status: Qualifiers: Altered mental status type: unspecified Qualified Code(s): R41.82 - Altered mental status, unspecified Code(s): R41.82 - Altered mental status, unspecified Status: Acute Assessment and Plan: Much better. More alert, more lucid. Nearly back to normal. (5) Chronic alcohol use: Code(s): F10.90 - Alcohol use, unspecified, uncomplicated Status: Chronic Assessment and Plan: Now abstinent for 30 days. Subjective Subjective Date/Time Seen: 07/27/24 10:30 Post Op day: #21 Patient reports: no new complaints, feels better, tolerating a regular diet, bowel movement and afebrile Exam Const: General: comfortable and awake Nutritional Appearance: thin GI: Inspection: non-distended and incision (VAC REMOVED, WOUND CONTINUES TO HEAL WELL, wet to dry dressing placed) GI Palp: Yes Soft to palpation and No Tenderness to palpation present (GI) Objective Data Vital Signs Vital Signs: Vital Signs - 24 hr 07/26/24 14:00 07/26/24 21:20 07/27/24 05:20 Temperature 36.7 C 36.7 C 36.6 C Pulse Rate 78 78 74 Respiratory Rate 18 13 12 Blood Pressure 117/76 121/64 130/71 Pulse Oximetry 98 97 97 Oxygen Delivery Fraction of Inspired Oxygen 07/27/24 07:42 Temperature Pulse Rate 74 Respiratory Rate 12 Blood Pressure Pulse Oximetry 97 Oxygen Delivery Room Air Fraction of Inspired Oxygen 21 Intake/Output Intake/Output: Intake & Output 07/24/24 07/25/24 07/26/24 07/27/24 23:59 23:59 23:59 23:59 Intake Total 510 1466 1590 237 Output Total 1330 2150 1300 0 Balance -820 -684 290 237 Meds/Results Medications: Active Medications Generic Name Dose Route Start Last Admin Trade Name Freq PRN Reason Stop Dose Admin Acetaminophen 650 mg 07/15/24 15:21 Acetaminophen 325 Mg Tablet PO Q6H PRN Mild Pain (1-3) or Fever Alteplase, Recombinant 2 mg 07/11/24 05:49 07/19/24 14:48 Alteplase 2 Mg Vial (Cathflo) IV PUSH 2 mg ONCE PRN Administration Line Occlusion Carvedilol 6.25 mg 07/22/24 21:00 07/27/24 08:07 Carvedilol 6.25 Mg Tablet PO 6.25 mg Q12HR VANDANA Administration Dextrose 12.5 gm 07/02/24 13:59 Dextrose 50% 25 Gm/50 Ml Syringe IV PUSH PRN PRN Hypoglycemia Protocol Enoxaparin Sodium 40 mg 06/29/24 09:00 07/27/24 08:07 Enoxaparin 40 Mg/0.4 Ml Syringe SUB-Q 40 mg DAILY VANDANA Administration Glucagon 1 mg 07/02/24 13:59 Glucagon For Inj 1 Mg Vial IM PRN PRN Hypoglycemia Protocol Glucose 15 gm 07/02/24 13:59 Glucose Oral Gel 15 Gm Of Glucse In 37.5 Gm Tube PO PRN PRN Hypoglycemia Protocol Hydralazine HCl 25 mg 07/22/24 11:15 Hydralazine Hcl 25 Mg Tablet PO QID PRN Hypertension Dextrose 1,000 mls @ 100 mls/hr 07/02/24 13:59 Dextrose 5% 1,000 Ml IVPB PRN PRN Hypoglycemia Protocol Dextrose 1,000 mls @ 50 mls/hr 07/13/24 08:07 Dextrose 10% IV CONT .Q20H PRN if PN is interrupted Megestrol Acetate 40 mg 07/21/24 17:00 07/27/24 08:07 Megestrol Acetate (*Chemo) 40 Mg Tablet PO 40 mg QID VANDANA Administration Naloxone HCl 0.1 mg 07/06/24 18:50 Naloxone Hcl 0.4 Mg/Ml Vial IV PUSH Q2M PRN Opiate Reversal Ondansetron HCl 4 mg 07/23/24 17:00 07/27/24 08:07 Ondansetron Hcl Odt 4 Mg Tablet PO 4 mg TID VANDANA Administration Pantoprazole Sodium 40 mg 07/16/24 09:00 07/27/24 08:07 Pantoprazole 40 Mg Tablet PO 40 mg QAM VANDANA Administration Potassium Chloride 40 meq 07/11/24 11:50 07/27/24 08:07 Potassium Chloride 20 Meq Packet (For Liquid) PO 40 meq BID VANDANA Administration Sertraline HCl 50 mg 07/22/24 09:00 07/27/24 08:07 Sertraline Hcl 50 Mg Tablet PO 50 mg QAM VANDANA Administration Sodium Chloride 10 ml 07/02/24 22:00 07/27/24 05:01 Central Line Flush IV PUSH Not Given Q8HR VANDANA Sodium Chloride 10 ml 07/02/24 15:38 07/04/24 14:13 Central Line Flush IV PUSH 10 ml PRN PRN Administration with TPN bag changes Sodium Chloride 20 ml 07/02/24 15:38 Central Line Flush IV PUSH PRN PRN after blood draws Sodium Chloride 1 gm 07/26/24 09:00 07/27/24 08:07 Sodium Chloride 1 Gm Tablet PO 1 gm BID VANDANA Administration Thiamine HCl 100 mg 07/16/24 09:00 07/27/24 08:07 Thiamine Hcl 100 Mg Tablet PO 100 mg QAM VANDANA Administration Radiology Results: ITS Impressions Chest/Abdomen/Pelvis CTA 06/27/24 06:17 IMPRESSION: CHEST: 1. No pulmonary embolism. No aortic dissection 2. No acute cardiopulmonary pathology. ABDOMEN/PELVIS: 1. Small bowel obstruction with the transition zone in the terminal ileum area. Clinical correlation advised. 2. No evidence of appendicitis, or diverticulitis. Head CT 06/27/24 06:59 IMPRESSION: No acute intracranial findings. Cervical Spine CT 06/27/24 07:58 IMPRESSION: No acute osseous abnormality cervical spine. Multilevel degenerative disc disease. NG Tube Placement 07/02/24 07:18 IMPRESSION: Fluoroscopy used during NG tube placement in the stomach. Abdomen/Pelvis CT 07/07/24 05:20 Impression: Small amount of pneumoperitoneum, likely postoperative with evidence of recent midline incision stapling since prior exam. Correlate with surgical history. Bowel distention/bowel obstruction is essentially resolved as compared to prior exam. Small bowel evaluation is limited on the current exam due to extensive matting together of bowel loops. Small amount of ascites. Small pleural effusions with bibasilar pulmonary edema/atelectasis versus pneumonia. Correlate clinically. Chest X-Ray 07/08/24 13:34 Impression: 1: Developing patchy bilateral airspace disease, compatible with pneumonia. Venous Doppler Study 07/09/24 00:02 IMPRESSION: Negative right upper extremity venous US. No deep vein thrombosis. Upper GI Series 07/09/24 13:13 IMPRESSION: 1. No bowel obstruction or ileus with normal small bowel transit time and normal caliber and mucosal fold pattern to the small bowel. Abdomen X-Ray 07/15/24 06:41 Impression: Small bowel obstruction. Small Bowel X-Ray 07/15/24 12:57 IMPRESSION: 1. Normal small bowel follow-through. Labs Labs: Laboratory Results - last 24 hr 07/26/24 07/26/24 07/26/24 11:07 17:28 23:34 POC Capillary Glucose 97 94 95 07/27/24 04:41 POC Capillary Glucose 96
--- NOTE | 2024-07-27 10:46 | PC.NURSE ---
Discharge to [facility], report called to MARYANN Beltran. Dr. Allen and Dr. Shipman ok to DC with Right Upper arm PICC line in place, ELECTRICAL PROSPECTING OPERATOR provider Bridger Victor at [facility] aware PT to come with PICC line in. Family updated, Discharge packet sent with . Wound care instrustions on DC packet updated to reflect Wound Vac removal and is to be replaced once to [facility]. Questions answered. PT A-O-3. on RA, no c/o pain, able to void spontaneously, able to stand and pivot, walks with w/w.
--- NOTE | 2024-07-27 11:12 | PCNFU ---
Nutrition Follow-Up Complete: Inadequate energy intake related to small bowel obstruction as evidenced by NPO day 5 Goal:Meet estimated nutrition needs PO intake when medically able Pt current nutrition is Regular, Ensure Enlive TID, Ensure Clear TID. Nutrition recommendation: encourage po intake Last recorded weight is 73.9 kg. Bowel Motility: +BM / Labs Reviewed: Hgb:8.5, HCT:26.2, Alb:2.6, Na:130, BUN:6, Cr:0.69 Meds Noted: protonix, thiamin, lovenox, KCL Skin: no pressure injuries Additional Notes: Pt no longer on TPN, regular diet, minimal intake still despite encouragement and supplements. Calorie count completed but not regularly documented. Pt to discharge today to [facility]. Family states they will bring in preferred foods there and encourage intake as pt does not like supplements and not eating much of meals here. Encouraged po intake for nutrition. Monitoring orders, labs, weights, meds, output, plan of care Follow up in 5 days.
== END 2024-07-27 11:20 | disposition swing bed (61) | DRG 329 ==
LOC: ANHED 02:50 → ANHIMU 09:01 → ANH3MEDSUR 06-28 13:39
PROVIDERS: General Practice; Internal Medicine; Nurse Practitioner Acute Care; Nurse Practitioner Family; Physician Assistant; Surgery; Admitting Provider Internal Medicine; Emergency Provider Student in an Organized Health Care Education/Training Program; Visit Provider Family Medicine
PROC: 0DQ80ZZ Repair Small Intestine, Open Approach (ICD-10-PCS; CPT 49000; principal; 2024-06-29 13:30)
PROC: 0DB80ZZ Excision of Small Intestine, Open Approach (ICD-10-PCS; CPT 49000; principal; 2024-07-06 15:30)
DX: K56.50 Intestinal adhesions [bands], unspecified as to partial versus complete obstruction (principal); E43 Unspecified severe protein-calorie malnutrition; K63.1 Perforation of intestine (nontraumatic); J18.9 Pneumonia, unspecified organism; S36.438A Laceration of other part of small intestine, initial encounter; E87.1 Hypo-osmolality and hyponatremia; N17.9 Acute kidney failure, unspecified; E87.21 Acute metabolic acidosis; E87.0 Hyperosmolality and hypernatremia; K91.89 Other postprocedural complications and disorders of digestive system; R44.3 Hallucinations, unspecified; G93.40 Encephalopathy, unspecified; T81.321A Disruption or dehiscence of closure of internal operation (surgical) wound of abdominal wall muscle or fascia, initial encounter; K56.7 Ileus, unspecified; R00.0 Tachycardia, unspecified; E86.0 Dehydration; E87.6 Hypokalemia; D64.89 Other specified anemias; F32.A Depression, unspecified; K66.8 Other specified disorders of peritoneum; R55 Syncope and collapse; M47.812 Spondylosis without myelopathy or radiculopathy, cervical region; R73.9 Hyperglycemia, unspecified; F10.10 Alcohol abuse, uncomplicated; I10 Essential (primary) hypertension; K42.9 Umbilical hernia without obstruction or gangrene; F17.220 Nicotine dependence, chewing tobacco, uncomplicated; Z20.822 Contact with and (suspected) exposure to COVID-19; Z68.24 Body mass index [BMI] 24.0-24.9, adult
CPT/HCPCS: 36415; 36569; 70450; 71045; 71275; 72125; 74018; 74019; 74176; 74177; 74240; 74248; 74250; 80048; 80053; 81001; 82077; 82140; 82248; 82533; 82570; 82948; 83605; 83690; 83735; 83880; 84100; 84295; 84300; 84443; 84450; 84460; 84466; 84478; 84484; 85014; 85018; 85025; 85027; 85610; 85730; 86140; 86850; 86900; 86901; 87040; 87086; 87181; 87493; 87637; 88307; 93005; 93971; 96361; 96375; 96376; 97110; 97116; 97161; 97164; 97165; 97168; 97530; 97535; 99285; A9270; C1751; C8929; G0378; J0330; J0360; J0612; J0690; J0692; J1100; J1171; J1650; J1741; J1836; J2003; J2004; J2020; J2060; J2185; J2250; J2371; J2405; J2470; J2543; J2704; J2765; J2997; J3010; J3411; J3475; J3480; J7030; J7040; J7070; J7120; P9047; Q9957; Q9967

== ENCOUNTER 2024-07-27 11:55 | Inpatient (IN) | payer MEDICARE, SELFPAY ==
--- NOTE | 2024-07-27 12:15 | PC.NURSE ---
Patient arrived to facility in privately owned vehicle from [facility] for swing bed therapy. Patient use w/c to get to unit and was admitted to room 202. Patient required contact guard assist to transfer from w/c to bed. Patient and educated on use of call light, bed controls, hospital policies including, infection control, fall prevention, activation of rapid response, and visiting hours. Patient and both voiced understanding. Patient has surgical wound to abdomen that has just been dressed with wet to dry dressing prior to leaving [facility]. Charge nurses advised nurse per nursing judgement to leave dressing in place until tomorrows dressing change and photograph at that time to prevent further risk of infection.
--- OUTSIDE RECORDS SUMMARY | 2024-07-27 12:22 | XMS_ITS | Clinical Summary ---
Author Organization [facility] Address [address] [place] [id number] Care Team Providers Care Networks Software Consultant Name Role Phone Unavailable Primary Care Provider [...] Td Vaccines ( 1 - Tdap) 1977 Pneumococcal Vaccine: 50+ Ye ars (1 of 1 - PCV) 02/18/2008 Zoster Vaccines (1 of 2) 02/18/2008 COVID-19 Vaccine ( - 2023-2 5 season) 2023 RSV Immunization [...]
[2024-07-27 12:40] VITALS: BMI 24.5
[2024-07-27 13:36] VITALS: PULSE 69; RESP 16; O2SAT 95
[2024-07-27 13:41] VITALS: BP 121/67; PULSE 69; RESP 16; TEMP 36.3; O2SAT 95
[2024-07-27 14:00] VITALS: BP 121/64; PULSE 69; RESP 16; TEMP 36.3; O2SAT 95
[2024-07-27] MEDS: SALINE LOCK FLUSH 10 ML IV PUSH ×2 (14:27→20:55)
[2024-07-27 16:00] VITALS: BP 133/77; PULSE 75; RESP 16; TEMP 36.1; O2SAT 95
[2024-07-27 16:06] LABS: MRSA (PCR) NOT DETECTED (NOT DETECTE)
[2024-07-27] MEDS: POTASSIUM CHLORIDE 20 MEQ PACKET (FOR LIQUID) 40 MEQ PO (17:07)
[2024-07-27] MEDS: ONDANSETRON HCL ODT 4 MG TABLET PO (17:08)
[2024-07-27] MEDS: MEGESTROL ACETATE (*CHEMO) 40 MG TABLET PO ×2 (17:08→20:55)
[2024-07-27] MEDS: SODIUM CHLORIDE 1 GM TABLET PO (17:08)
[2024-07-27 20:00] VITALS: PULSE 73; RESP 16; O2SAT 95
[2024-07-27 20:45] LABS: Toxigenic C. Diff NEGATIVE (NEGATIVE)
[2024-07-27 20:55] VITALS: PULSE 73
[2024-07-27] MEDS: carvediloL 6.25 MG TABLET PO (20:55)
[2024-07-28] VITALS: BP 133/67; PULSE 73; RESP 16; TEMP 36.3; O2SAT 96
[2024-07-28] MEDS: SALINE LOCK FLUSH 10 ML IV PUSH (05:24)
[2024-07-28 08:00] VITALS: BP 136/78; PULSE 95; RESP 14; TEMP 36.6; O2SAT 95
[2024-07-28] MEDS: THIAMINE HCL 100 MG TABLET PO (09:51)
[2024-07-28] MEDS: POTASSIUM CHLORIDE 20 MEQ PACKET (FOR LIQUID) 40 MEQ PO ×2 (09:51→16:55)
[2024-07-28] MEDS: ENOXAPARIN 40 MG/0.4 ML SYRINGE SUB-Q (09:51)
[2024-07-28] MEDS: ONDANSETRON HCL ODT 4 MG TABLET PO ×3 (09:51→16:57)
[2024-07-28 09:52] VITALS: PULSE 69
[2024-07-28] MEDS: SERTRALINE HCL 50 MG TABLET PO (09:52)
[2024-07-28] MEDS: SODIUM CHLORIDE 1 GM TABLET PO ×2 (09:52→16:55)
[2024-07-28] MEDS: MEGESTROL ACETATE (*CHEMO) 40 MG TABLET PO ×4 (09:52→21:18)
[2024-07-28] MEDS: carvediloL 6.25 MG TABLET PO ×2 (09:52→21:18)
[2024-07-28] MEDS: PANTOPRAZOLE 40 MG TABLET PO (10:02)
--- NOTE | 2024-07-28 12:03 | P.HP_ITS ---
H&P: HPI History of Present Illness Date/Time: 07/28/24 12:03 Chief Complaint: physically deconditioned Narrative: Patient admitted to [facility] for continued rehabilitation after an extended hospitalization and is physically deconditioned at this time. Patient was treated for small-bowel obstruction with the transition zone in the terminal ileum area. patient had consult to General surgery was taken for exploratory laparotomy 06/29/2024 for repair serosal tears x2. He had a repeat CT scan on 07/06/2024 which shown findings compatible with small bowel obstruction with transition point in the mid small bowel, small amount of ascites with mesenteric edema, small right pleural effusion with patchy bibasilar pulmonary consolidation. He was then taken to the OR on 07/06/[address] Shipman 4 lysis of adhesion with resection of the jejunal perforation with anastomosis. With wound vac placed. He had a small bowel series 07/15/2024 showed normal follow through. Patient passing gas and having BM's. patient's only reported past medical history included previous ETOH abuse and hypertension however patient was non no medications at time of admission to [facility]. due to his extended hospitalization and minimum intake patient with severe physical deconditioning will continue with physical and occupational therapy for rehabilitation for plans to return home. Review of Systems Review of Systems: All systems reviewed & are unremarkable except as noted in HPI and below PMFSH Family History Family History Mother Breast cancer Father Malignant neoplasm of prostate Social History Social History Smoking packs per day: 1 Smoking cigarettes per day: 20.0 Years smoked: 5 Smoking pack-years: 5.00 Smoking status: Former smoker Tobacco type: cigarettes Smokeless tobacco user: chewing tobacco Second hand tobacco smoke exposure: Yes Smoking end date: 07/27/24 Alcohol intake: current Drinks per week: 70 Substance use: never Do You Feel Safe in your Home?: Yes Lack of Transportation: No Lack of Food: Never True Current Housing: I Have Housing Concerned About Future Housing: No Difficulty Paying Gas/Electric Bills: No Difficulty Paying for Meds: No Currently Unemployed: No Education: High School Diploma/GED Difficulty w/ Childcare or Family Care: No Spiritual care concerns: No Meds Home Medications and Allergies Home Medications Medication Instructions Recorded Confirmed Type acetaminophen 325 mg tablet 650 mg (2 x 325 mg) PO Q6H PRN 07/27/24 07/27/24 Rx Mild Pain (1-3) Or Fever #30 tabs alteplase 2 mg intra-catheter 2 mg IV PUSH ONCE PRN Line 07/27/24 07/27/24 Rx solution (Cathflo Activase) Occlusion #1 ea carvedilol 6.25 mg tablet (Coreg) 6.25 mg PO Q12HR #60 tabs 07/27/24 07/27/24 Rx enoxaparin 40 mg/0.4 mL 40 mg (0.4 mL) subcut DAILY #4 mL 07/27/24 07/27/24 Rx subcutaneous syringe (Lovenox) hydralazine 25 mg tablet 25 mg PO QID PRN Hypertension #30 07/27/24 07/27/24 Rx tabs megestrol 40 mg tablet 40 mg PO QID #30 tabs 07/27/24 07/27/24 Rx naloxone 0.4 mg/mL injection 0.1 mg (0.25 mL) IV PUSH Q2M PRN 07/27/24 07/27/24 Rx solution Opiate Reversal #10 mL ondansetron 4 mg disintegrating 4 mg PO TID #30 tabs 07/27/24 07/27/24 Rx tablet pantoprazole 40 mg tablet,delayed 40 mg PO QAM #30 tabs 07/27/24 07/27/24 Rx release potassium chloride 20 mEq oral 40 meq PO BID #30 ea 07/27/24 07/27/24 Rx packet sertraline 50 mg tablet (Zoloft) 50 mg PO QAM #30 tabs 07/27/24 07/27/24 Rx sodium chloride 1,000 mg soluble 1,000 mg PO BID #30 tabs 07/27/24 07/27/24 Rx tablet thiamine HCl (vitamin B1) 100 mg 100 mg PO QAM #30 tabs 07/27/24 07/27/24 Rx tablet (Vitamin B-1) Allergies Allergy/AdvReac Type Severity Reaction Status Date / Time No Known Allergies Allergy Unknown Verified 07/06/24 14:37 Vital Signs Vital Signs - 24 hr 07/27/24 13:36 07/27/24 13:41 07/27/24 14:00 Temperature 97.3 F L 97.3 F L Pulse Rate 69 69 69 Respiratory Rate 16 16 16 Blood Pressure 121/67 121/64 Pulse Oximetry 95 95 95 Oxygen Delivery Room Air Room Air 07/27/24 16:00 07/27/24 20:00 07/27/24 20:55 Temperature 96.9 F L Pulse Rate 75 73 73 Respiratory Rate 16 16 Blood Pressure 133/77 Pulse Oximetry 95 95 Oxygen Delivery Room Air Room Air 07/28/24 00:00 07/28/24 09:52 Temperature 97.4 F L Pulse Rate 73 69 Respiratory Rate 16 Blood Pressure 133/67 Pulse Oximetry 96 Oxygen Delivery Room Air Exam Narrative: Gen: NAD HEENT: PERRL, pharyngeal mucosa pink and intact NECK: No JVD, supple neck CHEST: Clear to auscultation. Normal effort. HEART: NL S1/S2, regular, no murmur ABDOMEN: BS+, soft, tender around abdominal wound pack with wet-to dry dressing EXTREMITIES: No cyanosis, edema, or clubbing NEUROLOGIC: CN intact and symmetric to inspection. MUSCULOSKELETAL: Tone and strength symmetric. PSYCH: Alert. Oriented to person, place, and time. Assessment and Plan Assessment and plan (1) Physical deconditioning: Code(s): R53.81 - Other malaise Status: Acute Assessment and Plan: patient admitted due extended hospitalization secondary to SBO with abdominal surgery x2 * PT/OT * advance diet as tolerated encourage protein shakes with each meal (2) Protein-calorie malnutrition, severe: Code(s): E43 - Unspecified severe protein-calorie malnutrition Status: Acute Assessment and Plan: patient was initially on TPN for greater than 2 weeks which has since been discontinued * Diet advanced to soft diet * pain control * ambulate as tolerated * Antiemetics * Advance diet as tolerated * zofran PRN * Continue Megace for now (3) Hypertension: Code(s): I10 - Essential (primary) hypertension Status: Acute Assessment and Plan: * continued carvedilol and PRN hydralazine * monitor BP per protocol (4) Chronic alcohol use: Code(s): F10.90 - Alcohol use, unspecified, uncomplicated Status: Chronic Assessment and Plan: Stable Does not appear in withdrawal at this time will continue to monitor * Last drink 06/23 * Thiamine, folic acid, and multi-vitamin * PPI daily * librium PRN * CIWA daily * No sign of withdrawal (5) 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 until wound VAC delivered * once wound VAC delivered change twice weekly * follow-up appointment with General surgery 08/09 Dr. Plata * pain management * encourage activity * monitor for any signs obstructions * encourage oral hydration (6) Hyponatremia: Code(s): E87.1 - Hypo-osmolality and hyponatremia Status: Resolved Assessment and Plan: * NA 130 5/5 * Continue sodium chloride tablets b.i.d. 1 g * BMP in 3 days Plan Code status: Full code per patient DVT prophylaxis: Lovenox Stress ulcer prophylaxis: Protonix 40 daily PT/OT notes: PT/OT swing bed Disposition: patient will continue admission to [facility] swing bed due to physically deconditioned state thin will be to increase strength and endurance to return home at discharge. Quality VTE Prophylaxis VTE prophylaxis: pharmacologic ordered -Patient's previous records reviewed on admission -ER notes reviewed in detail on admission -discussed all findings and current treatment plan with patient/Family/POA -Consultations reviewed for recommendations -Patient's disposition for safe discharge discussed with manager case management Dictation performed by [employer] direct speech recognition software, therefore stone sandblaster variants and typographical errors may occur. Hospitalist [facility] Advance Care Plan I have confirmed that the patient's Advanced Care Plan is present, code status is documented, or surrogate decision maker is listed in patient medical record.: Yes Medication Reconciliation I have utilized all available resources to obtain, update and review the patients current medications (includes all prescriptions, OTC, herbals, cannabis, and nutritional supplements).: Yes The patient is not eligible for med reconciliation; the patient is in a emergent medical situation where delaying treatment would jeopardize the patients health.: No
[2024-07-28 16:00] VITALS: BP 129/60; PULSE 63; RESP 14; TEMP 36.6; O2SAT 93
[2024-07-28 21:18] VITALS: PULSE 80
[2024-07-29] VITALS (7 sets, daily range): BP systolic 127–147; BP diastolic 76–84; PULSE 68–77; RESP 15–20; TEMP 36.3–36.5; O2SAT 95–97
--- NOTE | 2024-07-29 08:33 | PC.NURSE ---
TANKAGE SUPERVISOR made aware of Applications Coordinator Evaluation.
--- NOTE | 2024-07-29 08:34 | PC.NURSE ---
RECREATION COUNSELOR Made aware of [place] Performer Eval and Assessment
[2024-07-29] MEDS: MEGESTROL ACETATE (*CHEMO) 40 MG TABLET PO ×3 (09:43→21:40)
[2024-07-29] MEDS: carvediloL 6.25 MG TABLET PO ×2 (09:43→21:41)
[2024-07-29] MEDS: SERTRALINE HCL 50 MG TABLET PO (09:43)
[2024-07-29] MEDS: SODIUM CHLORIDE 1 GM TABLET PO ×2 (09:43→16:39)
[2024-07-29] MEDS: THIAMINE HCL 100 MG TABLET PO (09:43)
[2024-07-29] MEDS: POTASSIUM CHLORIDE 20 MEQ PACKET (FOR LIQUID) 40 MEQ PO (09:43)
[2024-07-29] MEDS: ONDANSETRON HCL ODT 4 MG TABLET PO ×2 (09:44→16:39)
[2024-07-29] MEDS: ENOXAPARIN 40 MG/0.4 ML SYRINGE SUB-Q (09:44)
[2024-07-29] MEDS: PANTOPRAZOLE 40 MG TABLET PO (09:44)
--- NOTE | 2024-07-29 14:25 | PC.NURSE ---
Spoke with MEDICAL PAYMENT POSTER r/t wound vac orders being put on hold when he was admitted until supplies arrives. Informed MEDICAL PAYMENT POSTER would take orders off hold.
--- NOTE | 2024-07-29 14:45 | PC.NURSE ---
Wound vac supplies arrived, wrong canisters delivered with wound vac. [employer] Care coordinater notified, Nivia JACK notified. To continue wet to dry dressing until supplies arrive. Wound vac canisters are supposed to be overnighted per [employer] MENDOZA.
--- NOTE | 2024-07-29 15:00 | PC.NURSE ---
Attempted to assemble wound vac to apply to abdominal wound, however, the wrong canister was delivered and is not compatible for wound vac model. customer solutions coordinator made aware and contacted company, states they will overnight new canisters. Will continue with wet to dry dressing until arrival. Pt now has company at the bedside, instructed to notify staff when available for dressing change.
[2024-07-29] MEDS: ACETAMINOPHEN 325 MG TABLET 650 MG PO (16:39)
[2024-07-29] MEDS: POTASSIUM CHLORIDE 20 MEQ ER TABLET 40 MEQ PO (16:39)
--- NOTE | 2024-07-29 16:50 | PC.NURSE ---
Patient has visitors and would like to wait until they leave to change abd dressing. Requested he call the nurses station when ready.
--- NOTE | 2024-07-29 18:05 | PC.NURSE ---
New visitors at bedside now, unable to change abd dressing. Again requested patient to call when ready.
--- NOTE | 2024-07-29 18:45 | PC.NURSE ---
Abdominal dressing change performed. Cleansed w/saline and re-packed with damp 4x4 gauze, applied dry gauze over, and ABD pad on top, secured with medipore tape. Pt tolerated very well.
[2024-07-30] VITALS (7 sets, daily range): BP systolic 134–148; BP diastolic 76–80; PULSE 67–78; RESP 15–18; TEMP 36.3–36.7; O2SAT 97
[2024-07-30] MEDS: POTASSIUM CHLORIDE 20 MEQ ER TABLET 40 MEQ PO ×2 (09:17→16:57)
[2024-07-30] MEDS: ENOXAPARIN 40 MG/0.4 ML SYRINGE SUB-Q (09:17)
[2024-07-30] MEDS: SODIUM CHLORIDE 1 GM TABLET PO ×2 (09:17→16:57)
[2024-07-30] MEDS: carvediloL 6.25 MG TABLET PO ×2 (09:18→20:35)
[2024-07-30] MEDS: THIAMINE HCL 100 MG TABLET PO (09:18)
[2024-07-30] MEDS: PANTOPRAZOLE 40 MG TABLET PO (09:18)
[2024-07-30] MEDS: MEGESTROL ACETATE (*CHEMO) 40 MG TABLET PO ×4 (09:18→20:35)
[2024-07-30] MEDS: SERTRALINE HCL 50 MG TABLET PO (09:18)
[2024-07-30] MEDS: ONDANSETRON HCL ODT 4 MG TABLET PO ×3 (09:18→16:56)
[2024-07-30] MEDS: ACETAMINOPHEN 325 MG TABLET 650 MG PO (19:20)
[2024-07-31] VITALS: BP 140/78; PULSE 78; RESP 18; TEMP 36.6; O2SAT 97
[2024-07-31 05:39] LABS: Alanine Aminotransferase 22 U/L (6-50); Albumin Level 2.7 g/dL (3.5-5.1); Alkaline Phosphatase 80 U/L (38-126); Anion Gap 3 mmol/L (4-12); Aspartate Amino Transferase 29 U/L (17-59); Bilirubin,Total 0.3 mg/dL (0.2-1.3); Blood Urea Nitrogen 11 mg/dL (9-20); Calcium 8.4 mg/dL (8.4-10.2); Carbon Dioxide 24 mmol/L (22-30); Chloride 105 mmol/L (98-107); Estimated CRCL calculation 89 ml/min; Estimated Glomerular Filt Rate > 60; Glucose 90 mg/dL (65-110); Osmolality Calculated 273 mOsm/kg (285-295); Potassium 4.2 mmol/L (3.4-5.0); Sodium 132 mmol/L (137-145); Total Protein 6.1 g/dL (6.3-8.2)
[2024-07-31 08:00] VITALS: BP 138/73; PULSE 75; RESP 18; TEMP 36.7; O2SAT 96
[2024-07-31] MEDS: ENOXAPARIN 40 MG/0.4 ML SYRINGE SUB-Q (08:41)
[2024-07-31] MEDS: POTASSIUM CHLORIDE 20 MEQ ER TABLET 40 MEQ PO ×2 (08:42→17:16)
[2024-07-31] MEDS: THIAMINE HCL 100 MG TABLET PO (08:43)
[2024-07-31] MEDS: ONDANSETRON HCL ODT 4 MG TABLET PO ×3 (08:43→17:17)
[2024-07-31] MEDS: SODIUM CHLORIDE 1 GM TABLET PO ×2 (08:43→17:17)
[2024-07-31 08:44] VITALS: PULSE 75
[2024-07-31] MEDS: SERTRALINE HCL 50 MG TABLET PO (08:44)
[2024-07-31] MEDS: MEGESTROL ACETATE (*CHEMO) 40 MG TABLET PO ×4 (08:44→21:05)
[2024-07-31] MEDS: PANTOPRAZOLE 40 MG TABLET PO (08:44)
[2024-07-31] MEDS: carvediloL 6.25 MG TABLET PO ×2 (08:44→21:05)
[2024-07-31 16:00] VITALS: BP 141/80; PULSE 72; RESP 16; TEMP 36.8; O2SAT 97
[2024-07-31 20:00] VITALS: PULSE 75; RESP 16; O2SAT 96
[2024-07-31 21:05] VITALS: PULSE 70
[2024-07-31] MEDS: ACETAMINOPHEN 325 MG TABLET 650 MG PO (21:05)
[2024-08-01] VITALS: BP 140/75; PULSE 69; RESP 16; TEMP 36.7; O2SAT 99
[2024-08-01 08:00] VITALS: BP 136/71; PULSE 69; RESP 16; TEMP 36.6; O2SAT 96
[2024-08-01] MEDS: ENOXAPARIN 40 MG/0.4 ML SYRINGE SUB-Q (09:32)
[2024-08-01] MEDS: THIAMINE HCL 100 MG TABLET PO (09:34)
[2024-08-01] MEDS: POTASSIUM CHLORIDE 20 MEQ ER TABLET 40 MEQ PO ×2 (09:34→16:57)
[2024-08-01 09:35] VITALS: PULSE 69
[2024-08-01] MEDS: carvediloL 6.25 MG TABLET PO ×2 (09:35→21:03)
[2024-08-01] MEDS: MEGESTROL ACETATE (*CHEMO) 40 MG TABLET PO ×4 (09:35→21:08)
[2024-08-01] MEDS: PANTOPRAZOLE 40 MG TABLET PO (09:35)
[2024-08-01] MEDS: ONDANSETRON HCL ODT 4 MG TABLET PO ×3 (09:36→16:58)
[2024-08-01] MEDS: SERTRALINE HCL 50 MG TABLET PO (09:36)
[2024-08-01] MEDS: SODIUM CHLORIDE 1 GM TABLET PO ×2 (09:36→16:57)
[2024-08-01 16:00] VITALS: BP 126/70; PULSE 71; RESP 16; TEMP 36.4; O2SAT 97
[2024-08-01] MEDS: ACETAMINOPHEN 325 MG TABLET 650 MG PO (19:28)
[2024-08-01 20:00] VITALS: PULSE 69; RESP 16; O2SAT 95
[2024-08-01 21:03] VITALS: PULSE 70
[2024-08-02] VITALS (7 sets, daily range): BP systolic 109–136; BP diastolic 70–82; PULSE 69–88; RESP 16; TEMP 35.8–36.4; O2SAT 97–98
[2024-08-02] MEDS: SERTRALINE HCL 50 MG TABLET PO (09:52)
[2024-08-02] MEDS: ENOXAPARIN 40 MG/0.4 ML SYRINGE SUB-Q (09:52)
[2024-08-02] MEDS: PANTOPRAZOLE 40 MG TABLET PO (09:53)
[2024-08-02] MEDS: ONDANSETRON HCL ODT 4 MG TABLET PO ×3 (09:53→18:08)
[2024-08-02] MEDS: MEGESTROL ACETATE (*CHEMO) 40 MG TABLET PO ×4 (09:53→21:13)
[2024-08-02] MEDS: SODIUM CHLORIDE 1 GM TABLET PO ×2 (09:53→18:09)
[2024-08-02] MEDS: THIAMINE HCL 100 MG TABLET PO (09:53)
[2024-08-02] MEDS: POTASSIUM CHLORIDE 20 MEQ ER TABLET 40 MEQ PO ×2 (09:53→18:08)
[2024-08-02] MEDS: carvediloL 6.25 MG TABLET PO ×2 (09:53→21:08)
[2024-08-03] VITALS (7 sets, daily range): BP systolic 137–157; BP diastolic 68–84; PULSE 70–79; RESP 16–18; TEMP 36.1–36.6; O2SAT 97
[2024-08-03] MEDS: carvediloL 6.25 MG TABLET PO ×2 (09:36→20:41)
[2024-08-03] MEDS: ENOXAPARIN 40 MG/0.4 ML SYRINGE SUB-Q (09:36)
[2024-08-03] MEDS: SODIUM CHLORIDE 1 GM TABLET PO ×2 (09:37→17:54)
[2024-08-03] MEDS: POTASSIUM CHLORIDE 20 MEQ ER TABLET 40 MEQ PO ×2 (09:37→17:54)
[2024-08-03] MEDS: THIAMINE HCL 100 MG TABLET PO (09:37)
[2024-08-03] MEDS: MEGESTROL ACETATE (*CHEMO) 40 MG TABLET PO ×4 (09:37→20:42)
[2024-08-03] MEDS: ONDANSETRON HCL ODT 4 MG TABLET PO ×3 (09:37→17:54)
[2024-08-03] MEDS: PANTOPRAZOLE 40 MG TABLET PO (09:37)
[2024-08-03] MEDS: SERTRALINE HCL 50 MG TABLET PO (09:37)
--- NOTE | 2024-08-03 23:40 | PC.NURSE ---
Pt resting quietly in bed and watching TV. 550 ml of clear, yellow urine emptied from the urinal. Pt doesnt voice any c/o discomfort.
[2024-08-04] VITALS: BP 133/70; PULSE 70; RESP 20; TEMP 36.3; O2SAT 97
[2024-08-04 05:59] LABS: Hematocrit 28.8 % (37.0-46.0); Hemoglobin 9.1 g/dL (12.4-15.3); Mean Corpuscular HGB Conc 31.6 g/dL (32-36); Mean Corpuscular Hemoglobin 28.9 pg (27.0-31.0); Mean Corpuscular Volume 91.4 fL (78.0-102.0); Mean Platelet Volume 9.8 fl (8.7-11.0); Platelet Count Result 353 K/mm3 (150-420); Red Blood Count 3.15 M/mm3 (4.70-6.10); Red Cell Distribution Width 13.6 % (11.6-14.4); White Blood Count 7.7 K/mm3 (4.8-10.8)
[2024-08-04 06:58] LABS: Alanine Aminotransferase 17 U/L (6-50); Albumin Level 2.6 g/dL (3.5-5.1); Alkaline Phosphatase 77 U/L (38-126); Anion Gap 4 mmol/L (4-12); Aspartate Amino Transferase 20 U/L (17-59); Bilirubin,Total 0.3 mg/dL (0.2-1.3); Blood Urea Nitrogen 10 mg/dL (9-20); Calcium 8.7 mg/dL (8.4-10.2); Carbon Dioxide 22 mmol/L (22-30); Chloride 107 mmol/L (98-107); Estimated CRCL calculation 98 ml/min; Estimated Glomerular Filt Rate > 60; Glucose 84 mg/dL (65-110); Osmolality Calculated 274 mOsm/kg (285-295); Potassium 4.4 mmol/L (3.4-5.0); Sodium 133 mmol/L (137-145); Total Protein 5.7 g/dL (6.3-8.2)
[2024-08-04 08:00] VITALS: BP 118/69; PULSE 105; RESP 14; TEMP 36.2; O2SAT 98
--- NOTE | 2024-08-04 08:54 | P.PNIM_ITS ---
Progress Note: A&P Assessment and Plan (1) Physical deconditioning: Code(s): R53.81 - Other malaise Status: Acute Assessment and Plan: patient admitted due extended hospitalization secondary to SBO with abdominal surgery x2 * PT/OT * advance diet as tolerated encourage protein shakes with each meal (2) Protein-calorie malnutrition, severe: Code(s): E43 - Unspecified severe protein-calorie malnutrition Status: Acute Assessment and Plan: patient was initially on TPN for greater than 2 weeks which has since been discontinued * Diet advanced to soft diet * pain control * ambulate as tolerated * Antiemetics * Advance diet as tolerated * zofran PRN * Continue Megace for now (3) Hypertension: Code(s): I10 - Essential (primary) hypertension Status: Acute Assessment and Plan: * continued carvedilol and PRN hydralazine * monitor BP per protocol (4) Jejunal adhesions: Code(s): 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 Plata * pain management * encourage activity * monitor for any signs obstructions * encourage oral hydration (5) Chronic alcohol use: Code(s): F10.90 - Alcohol use, unspecified, uncomplicated Status: Chronic Assessment and Plan: Stable Does not appear in withdrawal at this time will continue to monitor * Last drink 06/23 * Thiamine, folic acid, and multi-vitamin * PPI daily * librium PRN * CIWA daily * No sign of withdrawal (6) Hyponatremia: Code(s): E87.1 - Hypo-osmolality and hyponatremia Status: Resolved Assessment and Plan: * NA 133 08/04 * Continue sodium chloride tablets b.i.d. 1 g Plan Code status: Full code per patient DVT prophylaxis: Lovenox Stress ulcer prophylaxis: Protonix 40 daily PT/OT notes: PT/OT swing bed Disposition: patient will continue admission to [facility] swing bed due to physically deconditioned state thin will be to increase strength and endurance to return home at discharge. follow-up appointment with Dr Shipman for wound check 08/09. Time Spent With Patient Time with patient: 15 - 25 minutes Subjective Date/time seen: 08/04/24 08:54 Interval history: patient is a 64-year-old male who was admitted to [facility] for rehabilitation and wound care. 08/04/24: Up in chair no complaints BM this am minimal ABD pain and Appetite is improved. patient progressing well with PT / OT follow-up with Dr. Shipman Friday08/09/2024 for wound check. Review of Systems Review of Systems: All systems reviewed & are unremarkable except as noted in HPI and below Exam Narrative: Gen: NAD HEENT: PERRL, pharyngeal mucosa pink and intact NECK: No JVD, supple neck CHEST: Clear to auscultation. Normal effort. HEART: NL S1/S2, regular, no murmur ABDOMEN: BS+, soft, tender around abdominal wound with wound vac in place EXTREMITIES: No cyanosis, edema, or clubbing NEUROLOGIC: CN intact and symmetric to inspection. MUSCULOSKELETAL: Tone and strength symmetric. PSYCH: Alert. Oriented to person, place, and time. Objective Data Vital Signs Vital Signs: Vital Signs - 24 hr 08/03/24 09:36 08/03/24 16:35 08/03/24 19:49 Temperature 96.9 F L Pulse Rate 70 79 72 Respiratory Rate 16 18 Blood Pressure 157/76 H Pulse Oximetry 97 97 Oxygen Delivery Room Air Room Air 08/03/24 20:41 08/04/24 00:00 Temperature 97.3 F L Pulse Rate 70 70 Respiratory Rate 20 Blood Pressure 133/70 Pulse Oximetry 97 Oxygen Delivery Room Air Intake/Output Intake/Output: Intake & Output 08/01/24 08/02/24 08/03/24 08/04/24 23:59 23:59 23:59 23:59 Intake Total 2325 2530 1890 200 Output Total 2200 1900 1900 800 Balance 125 630 -10 -600 Meds/Results Medications: Active Medications Generic Name Dose Route Start Last Admin Trade Name Freq PRN Reason Stop Dose Admin Acetaminophen 650 mg 07/27/24 12:34 08/01/24 19:28 Acetaminophen 325 Mg Tablet PO 650 mg Q6H PRN Administration Pain 1-10 or Fever Carvedilol 6.25 mg 07/27/24 21:00 08/03/24 20:41 Carvedilol 6.25 Mg Tablet PO 6.25 mg Q12HR VANDANA Administration Enoxaparin Sodium 40 mg 07/28/24 09:00 08/03/24 09:36 Enoxaparin 40 Mg/0.4 Ml Syringe SUB-Q 40 mg DAILY VANDANA Administration Hydralazine HCl 25 mg 07/27/24 12:34 Hydralazine Hcl 25 Mg Tablet PO QID PRN SBP >/=170 OR DBP >/=100 Megestrol Acetate 40 mg 07/27/24 13:00 08/03/24 20:42 Megestrol Acetate (*Chemo) 40 Mg Tablet PO 40 mg QID VANDANA Administration Ondansetron HCl 4 mg 07/27/24 13:00 08/03/24 17:54 Ondansetron Hcl Odt 4 Mg Tablet PO 4 mg TID VANDANA Administration Pantoprazole Sodium 40 mg 07/28/24 09:00 08/03/24 09:37 Pantoprazole 40 Mg Tablet PO 40 mg QAM VANDANA Administration Potassium Chloride 40 meq 07/29/24 17:00 08/03/24 17:54 Potassium Chloride 20 Meq Er Tablet PO 40 meq BIDWM VANDANA Administration Sertraline HCl 50 mg 07/28/24 09:00 08/03/24 09:37 Sertraline Hcl 50 Mg Tablet PO 50 mg QAM VANDANA Administration Sodium Chloride 1 gm 07/27/24 17:00 08/03/24 17:54 Sodium Chloride 1 Gm Tablet PO 1 gm BID VANDANA Administration Sodium Chloride 20 ml 07/27/24 13:26 Saline Lock Flush IV PUSH PRN PRN after blood draws Thiamine HCl 100 mg 07/28/24 09:00 08/03/24 09:37 Thiamine Hcl 100 Mg Tablet PO 100 mg QAM VANDANA Administration Labs Labs: Laboratory Results - last 24 hr 08/04/24 05:20 WBC 7.7 RBC 3.15 L Hgb 9.1 L Hct 28.8 L MCV 91.4 MCH 28.9 MCHC 31.6 L RDW 13.6 Plt Count 353 MPV 9.8 Sodium 133 L Potassium 4.4 Chloride 107 Carbon Dioxide 22 Anion Gap 4 BUN 10 Creatinine 0.61 L Estim Creat Clear Calc 98 Estimated GFR > 60 Glucose 84 Calculated Osmolality 274 L Calcium 8.7 Total Bilirubin 0.3 AST 20 ALT 17 Alkaline Phosphatase 77 Total Protein 5.7 L Albumin 2.6 L Quality VTE Prophylaxis VTE prophylaxis: pharmacologic ordered -Patient's previous records reviewed on admission -ER notes reviewed in detail on admission -discussed all findings and current treatment plan with patient/Family/POA -Consultations reviewed for recommendations -Patient's disposition for safe discharge discussed with case work aide Dictation performed by [employer] direct speech recognition software, therefore equip tech variants and typographical errors may occur. Hospitalist [facility] Advance Care Plan I have confirmed that the patient's Advanced Care Plan is present, code status is documented, or surrogate decision maker is listed in patient medical record.: Yes Medication Reconciliation I have utilized all available resources to obtain, update and review the patients current medications (includes all prescriptions, OTC, herbals, cannabis, and nutritional supplements).: Yes The patient is not eligible for med reconciliation; the patient is in a emergent medical situation where delaying treatment would jeopardize the patients health.: No
[2024-08-04] MEDS: MEGESTROL ACETATE (*CHEMO) 40 MG TABLET PO ×4 (09:04→21:06)
[2024-08-04] MEDS: ONDANSETRON HCL ODT 4 MG TABLET PO ×3 (09:04→16:24)
[2024-08-04] MEDS: SERTRALINE HCL 50 MG TABLET PO (09:04)
[2024-08-04] MEDS: PANTOPRAZOLE 40 MG TABLET PO (09:04)
[2024-08-04] MEDS: THIAMINE HCL 100 MG TABLET PO (09:04)
[2024-08-04] MEDS: POTASSIUM CHLORIDE 20 MEQ ER TABLET 40 MEQ PO ×2 (09:04→16:24)
[2024-08-04] MEDS: SODIUM CHLORIDE 1 GM TABLET PO ×2 (09:04→16:24)
[2024-08-04 09:05] VITALS: PULSE 105
[2024-08-04] MEDS: carvediloL 6.25 MG TABLET PO ×2 (09:05→21:05)
[2024-08-04] MEDS: ENOXAPARIN 40 MG/0.4 ML SYRINGE SUB-Q (09:07)
[2024-08-04 16:00] VITALS: BP 133/78; PULSE 68; RESP 16; TEMP 36.4; O2SAT 97
[2024-08-04 21:05] VITALS: PULSE 73
[2024-08-05] VITALS: BP 132/78; PULSE 67; RESP 18; TEMP 36.1; O2SAT 97
[2024-08-05 08:00] VITALS: BP 154/77; PULSE 67; RESP 16; TEMP 36.2; O2SAT 97
[2024-08-05] MEDS: MEGESTROL ACETATE (*CHEMO) 40 MG TABLET PO ×4 (08:51→20:45)
[2024-08-05] MEDS: ONDANSETRON HCL ODT 4 MG TABLET PO ×3 (08:51→17:59)
[2024-08-05] MEDS: SERTRALINE HCL 50 MG TABLET PO (08:51)
[2024-08-05 08:52] VITALS: PULSE 68
[2024-08-05] MEDS: carvediloL 6.25 MG TABLET PO ×2 (08:52→20:45)
[2024-08-05] MEDS: THIAMINE HCL 100 MG TABLET PO (08:52)
[2024-08-05] MEDS: POTASSIUM CHLORIDE 20 MEQ ER TABLET 40 MEQ PO ×2 (08:52→18:00)
[2024-08-05] MEDS: SODIUM CHLORIDE 1 GM TABLET PO ×2 (08:52→17:59)
[2024-08-05] MEDS: PANTOPRAZOLE 40 MG TABLET PO (08:52)
[2024-08-05] MEDS: ENOXAPARIN 40 MG/0.4 ML SYRINGE SUB-Q (08:52)
[2024-08-05 16:00] VITALS: BP 140/77; PULSE 73; RESP 16; TEMP 36.7; O2SAT 98
[2024-08-05 20:45] VITALS: PULSE 78
[2024-08-05 21:45] VITALS: PULSE 76; RESP 16; O2SAT 98
[2024-08-06] VITALS: BP 131/70; PULSE 77; RESP 16; TEMP 36.2; O2SAT 96
[2024-08-06 08:00] VITALS: BP 141/80; PULSE 75; RESP 16; TEMP 36.2; O2SAT 98
[2024-08-06 09:39] VITALS: PULSE 68
[2024-08-06] MEDS: SERTRALINE HCL 50 MG TABLET PO (09:39)
[2024-08-06] MEDS: MEGESTROL ACETATE (*CHEMO) 40 MG TABLET PO ×4 (09:39→20:51)
[2024-08-06] MEDS: carvediloL 6.25 MG TABLET PO ×2 (09:39→20:51)
[2024-08-06] MEDS: ONDANSETRON HCL ODT 4 MG TABLET PO ×3 (09:39→17:54)
[2024-08-06] MEDS: PANTOPRAZOLE 40 MG TABLET PO (09:39)
[2024-08-06] MEDS: SODIUM CHLORIDE 1 GM TABLET PO ×2 (09:39→17:54)
[2024-08-06] MEDS: THIAMINE HCL 100 MG TABLET PO (09:39)
[2024-08-06] MEDS: POTASSIUM CHLORIDE 20 MEQ ER TABLET 40 MEQ PO ×2 (09:39→17:54)
[2024-08-06] MEDS: ENOXAPARIN 40 MG/0.4 ML SYRINGE SUB-Q (09:39)
[2024-08-06 16:00] VITALS: BP 146/78; PULSE 78; RESP 20; TEMP 36.2; O2SAT 98
[2024-08-07] VITALS: BP 139/70; PULSE 84; RESP 16; TEMP 36.6; O2SAT 97
[2024-08-07 08:00] VITALS: BP 100/78; PULSE 69; RESP 16; TEMP 35.9; O2SAT 96
[2024-08-07] MEDS: POTASSIUM CHLORIDE 20 MEQ ER TABLET 40 MEQ PO ×2 (09:17→17:58)
[2024-08-07] MEDS: MEGESTROL ACETATE (*CHEMO) 40 MG TABLET PO ×4 (09:17→20:25)
[2024-08-07] MEDS: SODIUM CHLORIDE 1 GM TABLET PO ×2 (09:17→17:58)
[2024-08-07 09:18] VITALS: PULSE 69
[2024-08-07] MEDS: PANTOPRAZOLE 40 MG TABLET PO (09:18)
[2024-08-07] MEDS: ENOXAPARIN 40 MG/0.4 ML SYRINGE SUB-Q (09:18)
[2024-08-07] MEDS: carvediloL 6.25 MG TABLET PO ×2 (09:18→20:24)
[2024-08-07] MEDS: SERTRALINE HCL 50 MG TABLET PO (09:18)
[2024-08-07] MEDS: ONDANSETRON HCL ODT 4 MG TABLET PO ×3 (09:18→17:58)
[2024-08-07] MEDS: THIAMINE HCL 100 MG TABLET PO (09:18)
[2024-08-07 16:40] VITALS: BP 133/68; PULSE 71; RESP 16; TEMP 36.4; O2SAT 97
[2024-08-08] VITALS: BP 141/71; PULSE 73; RESP 17; TEMP 36.2; O2SAT 97
[2024-08-08 07:20] VITALS: BP 144/72; PULSE 72; RESP 16; TEMP 36.3; O2SAT 97
[2024-08-08 08:30] VITALS: PULSE 93; RESP 16; O2SAT 97
[2024-08-08] MEDS: POTASSIUM CHLORIDE 20 MEQ ER TABLET 40 MEQ PO ×2 (08:31→17:39)
[2024-08-08] MEDS: SODIUM CHLORIDE 1 GM TABLET PO ×2 (08:31→17:39)
[2024-08-08 08:32] VITALS: PULSE 93
[2024-08-08] MEDS: MEGESTROL ACETATE (*CHEMO) 40 MG TABLET PO ×4 (08:32→21:39)
[2024-08-08] MEDS: carvediloL 6.25 MG TABLET PO ×2 (08:32→21:39)
[2024-08-08] MEDS: ENOXAPARIN 40 MG/0.4 ML SYRINGE SUB-Q (08:32)
[2024-08-08] MEDS: PANTOPRAZOLE 40 MG TABLET PO (08:32)
[2024-08-08] MEDS: SERTRALINE HCL 50 MG TABLET PO (08:32)
[2024-08-08] MEDS: ONDANSETRON HCL ODT 4 MG TABLET PO ×3 (08:32→17:39)
[2024-08-08] MEDS: THIAMINE HCL 100 MG TABLET PO (08:32)
[2024-08-08 16:30] VITALS: BP 136/71; PULSE 72; RESP 16; TEMP 35.9; O2SAT 97
[2024-08-09] VITALS: BP 154/83; PULSE 68; RESP 15; TEMP 36.4; O2SAT 98
[2024-08-09 08:00] VITALS: BP 136/78; PULSE 72; RESP 18; TEMP 36.4; O2SAT 95
--- NOTE | 2024-08-09 08:53 | PC.NURSE ---
Patient left for Dr. Shipman appointment with family member via personal care at 0830.
--- NOTE | 2024-08-09 12:33 | PC.NURSE ---
New wound orders received per DR. Shipman.. D/C wound VAC to abdominal wound. Start Daily dressing change of silver gel, gauze 4x4 and ABD pad. cover dressing. Secure with medipore tape.
--- NOTE | 2024-08-09 12:41 | PC.NURSE ---
OK you place wound orders from Dr. Shipman per CYBER POLICY AND STRATEGY PLANNER.
--- NOTE | 2024-08-09 12:46 | PC.NURSE ---
Wound VAC dressing removed prior to appointment with wet to dry placed. Patient returns to facility at 1230 pm via personal truck and escorted via WC to room 203. New treatment dressing applied while at appointment with Dr. Shipman.
[2024-08-09] MEDS: ENOXAPARIN 40 MG/0.4 ML SYRINGE SUB-Q (13:23)
[2024-08-09] MEDS: SERTRALINE HCL 50 MG TABLET PO (13:24)
[2024-08-09] MEDS: ONDANSETRON HCL ODT 4 MG TABLET PO ×2 (13:24→16:47)
[2024-08-09] MEDS: THIAMINE HCL 100 MG TABLET PO (13:24)
[2024-08-09] MEDS: MEGESTROL ACETATE (*CHEMO) 40 MG TABLET PO ×4 (13:24→21:02)
[2024-08-09] MEDS: PANTOPRAZOLE 40 MG TABLET PO (13:24)
[2024-08-09 16:00] VITALS: BP 111/76; PULSE 86; RESP 16; TEMP 36.3; O2SAT 97
[2024-08-09] MEDS: SODIUM CHLORIDE 1 GM TABLET PO (16:47)
[2024-08-09] MEDS: POTASSIUM CHLORIDE 20 MEQ ER TABLET 40 MEQ PO (16:47)
[2024-08-09 20:00] VITALS: PULSE 87; RESP 16; O2SAT 94
[2024-08-09 21:02] VITALS: PULSE 80
[2024-08-09] MEDS: carvediloL 6.25 MG TABLET PO (21:02)
[2024-08-09] MEDS: ACETAMINOPHEN 325 MG TABLET 650 MG PO (21:02)
[2024-08-10] VITALS: BP 140/78; PULSE 78; RESP 16; TEMP 36.2; O2SAT 98
[2024-08-10 08:00] VITALS: BP 150/81; PULSE 78; RESP 18; TEMP 36.4; O2SAT 96
[2024-08-10 08:30] VITALS: PULSE 70
[2024-08-10] MEDS: MEGESTROL ACETATE (*CHEMO) 40 MG TABLET PO ×4 (08:30→21:02)
[2024-08-10] MEDS: carvediloL 6.25 MG TABLET PO ×2 (08:30→20:57)
[2024-08-10] MEDS: SERTRALINE HCL 50 MG TABLET PO (08:30)
[2024-08-10] MEDS: PANTOPRAZOLE 40 MG TABLET PO (08:30)
[2024-08-10] MEDS: POTASSIUM CHLORIDE 20 MEQ ER TABLET 40 MEQ PO ×2 (08:31→17:11)
[2024-08-10] MEDS: SODIUM CHLORIDE 1 GM TABLET PO ×2 (08:31→17:12)
[2024-08-10] MEDS: ONDANSETRON HCL ODT 4 MG TABLET PO ×3 (08:32→17:12)
[2024-08-10] MEDS: ENOXAPARIN 40 MG/0.4 ML SYRINGE SUB-Q (08:32)
[2024-08-10] MEDS: THIAMINE HCL 100 MG TABLET PO (08:32)
[2024-08-10] MEDS: SILVERGEL (ELTA) 45 ML 1 APPLIC TOPICAL (08:32)
--- NOTE | 2024-08-10 08:51 | P.DS_ITS ---
DS: Admitting Diagnosis Discharge Date 08/10/2024 Admitting Diagnosis Physical deconditioning, protein calorie malnutrition, hypertension, chronic alcohol use, jejunal adhesions, hyponatremia DS: Discharge Diagnosis Discharge Diagnosis (1) Physical deconditioning: Code(s): R53.81 - Other malaise Status: Acute Assessment and Plan: patient admitted due extended hospitalization secondary to SBO with abdominal surgery x2 * PT/OT * advance diet as tolerated encourage protein shakes with each meal 08/10/24: Date of discharge - patient has improved well with physical therapy and occupational therapy overall and stable for discharge to home at this time. (2) Protein-calorie malnutrition, severe: Code(s): E43 - Unspecified severe protein-calorie malnutrition Status: Acute Assessment and Plan: patient was initially on TPN for greater than 2 weeks which has since been discontinued * Diet advanced to soft diet * pain control * ambulate as tolerated * Antiemetics * Advance diet as tolerated * zofran PRN * Continue Megace for now 08/10/2024: Date of discharge - Pt has been tolerating a regular diet without difficulty. and having good intake of all meals. Encouraging continued intake of calories and protein for healing from surgery upon discharge. (3) Hypertension: Code(s): I10 - Essential (primary) hypertension Status: Acute Assessment and Plan: * continued carvedilol and PRN hydralazine * monitor BP per protocol 08/10/2024: Date of discharge - Continue Carvedilol as ordered as BP has been within normal range. 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 Plata * pain management * encourage activity * monitor for any signs obstructions * encourage oral hydration 08/10/2024: Date of discharge - Continue dressing changes as ordered per Dr. Shipman, General surgeon. Pt's spouse has been educated on how to do these at home and dressings are to be done daily. (5) Chronic alcohol use: Code(s): F10.90 - Alcohol use, unspecified, uncomplicated Status: Chronic Assessment and Plan: Stable Does not appear in withdrawal at this time will continue to monitor * Last drink 06/23 * Thiamine, folic acid, and multi-vitamin * PPI daily * librium PRN * CIWA daily * No sign of withdrawal 08/10/2024: Date of discharge - No s/s of withdrawal. He is encouraged not to restart consumption of alcohol. Last drink was /2. (6) Hyponatremia: Code(s): E87.1 - Hypo-osmolality and hyponatremia Status: Resolved Assessment and Plan: * NA 133 08/04 * Continue sodium chloride tablets b.i.d. 1 g 08/10/2024: Date of discharge - Continue sodium tabs BID 1G upon discharge home. Outpt labs to be checked in two to three days to ensure stability and for adjustment of medication dosages. Plan Stable for discharge to home at this time with a follow up with Dr. Shipman in two weeks to re-evaluate. DS: Summary Hospital Course Reason for hospitalization: Physical deconditioning and strengthening prior to discharge home Hospital Course: This is a pleasant 64-year-old male patient who was admitted to [facility] for continued rehabilitation after an extended hospitalization physically deconditioned.Patient was treated for small-bowel obstruction with the transition zone in the terminal ileum area. Patient had consult to General surgery was taken for exploratory laparotomy 06/29/2024 for repair serosal tears x2. He had a repeat CT scan on 07/06/2024 which shown findings compatible with small bowel obstruction with transition point in the mid small bowel, small amount of ascites with mesenteric edema, small right pleural effusion with patchy bibasilar pulmonary consolidation. He was then taken to the OR on 07/06/[address] Shipman 4 lysis of adhesion with resection of the jejunal perforation with anastomosis. With wound vac placed. He had a small bowel series 07/15/2024 showed normal follow through. Patient passing gas and having BM's. Patient's only reported past medical history included previous ETOH abuse and hypertension however patient was non no medications at time of admission to [facility]. Due to his extended hospitalization and minimum intake patient was admitted to swing bed status with severe physical deconditioning for physical and occupational therapy for rehabilitation with plans to ultimately return home. During patient's admission for swing bed status patient has gradually improved with physical therapy and occupational therapy making interval Improvement strength, mobility and nutrition overall. he saw Dr. Shipman in follow-up on 08/09/2024 and the wound VAC was discontinued at that time. Patient will continue daily dressing changes at home, his has been educated on how to perform them and he will follow-up again with General surgery in 2 weeks. Patient endorses that he is not having any pain at all and that he is eating well at this time, as evidenced by eating 100% of his breakfast this morning. He has no other acute complaints and would like to go home today. As patient has made interval improvement I do believe this is a good plan. Status at Discharge Cognitive/behavioral status at discharge: At baseline Functional status at discharge: independent ambulation Overall status at discharge: patient is back to baseline Time Spent with Patient Time attestation: Total time spent providing and/or coordinating discharge services: Time spent: Greater than 30 minutes Specific discharge activities: dressing changes, medications, follow-up with General surgery, no use of alcohol /tobacco Exam Narrative: Gen: NAD HEENT: PERRL, pharyngeal mucosa pink and intact NECK: No JVD, supple neck CHEST: Clear to auscultation. Normal effort. HEART: NL S1/S2, regular, no murmur ABDOMEN: BS+, soft, nontender to palpation. There is a midline incision that is currently packed with ABD overlying. Surrounding skin intact without erythema or signs or symptoms of infection. EXTREMITIES: No cyanosis, edema, or clubbing NEUROLOGIC: CN intact with no focal deficits noted MUSCULOSKELETAL: Tone and strength symmetric. PSYCH: Alert. Oriented to person, place, and time. Discharge Plan Discharge Attending physician on discharge: Libra Varela Consulting providers: Alessia Aquino Discharging Clinician: Libra Varela Anticipated Discharge Date/Time: 08/10/24 09:04 Patient Disposition: Home Activity: may shower and other - see discharge instructions Diet: regular Wound Care Instructions: follow printed instructions Discharge Instructions: Thank you for allowing us to evaluate and treat you in the swing bed status at [facility]. You have had interval improvement in have overall become stronger and are ready for discharge today. Here are a few instructions that I would like you to please follow. 1) As per Dr. Shipman's instructions, please do daily dressing changes to the abdomen, packing with sterile gauze and then covering with ABD pad. Please note if there is any development of redness around the wound to notify Dr. Shipman's office immediately. also please notify him if you have increasing pain, change in appearance of drainage from the wound, intractable nausea or vomiting, diarrhea or if you develop a temperature greater than 100.5. These are all signs and symptoms of infection that he will want to know so that he can intervene. 2) To aid in healing, it is very important that you eat a diet that is high in protein and high in caloric intake. Please eat 3 full meals a day that are balanced and 2 snacks. Drink plenty of water to stay hydrated and to keep your kidneys flushed. 3) Avoid drinking any alcohol, smoking any nicotine or vaping or the use of any drugs as they can inhibit healing. 4) Please take all medications as ordered. 5) You will need to have outpatient labs performed in the next 2 days. Please present to the lab to have those done. Patient Language: Moroccan Stand Alone Forms: General Discharge Information Follow-up/Referrals: Zach Shipman MD [Physician] - (Keep upcoming appointment that you have previously scheduled in two weeks.) Discharge Medications: New thiamine HCl (vitamin B1) [Vitamin B-1] 100 mg Tablet 100 mg PO QAM Qty: 30 0RF megestrol 40 mg Tablet 40 mg PO QID 30 Days Qty: 120 0RF sodium chloride 1,000 mg Tablet,Soluble 1,000 mg PO BID Qty: 60 0RF Silver-Sept 200 mcg/gram Gel 1 applic topical DAILY Qty: 3 1RF carvedilol [Coreg] 6.25 mg Tablet 6.25 mg PO Q12HR Qty: 60 0RF Continued potassium chloride 20 mEq Packet 40 meq PO BID Qty: 60 0RF pantoprazole 40 mg Tablet,Delayed Release (Dr/Ec) 40 mg PO QAM Qty: 30 0RF ondansetron 4 mg Tablet,Disintegrating 4 mg PO TID Qty: 30 0RF sertraline [Zoloft] 50 mg Tablet 50 mg PO QAM Qty: 30 0RF acetaminophen 325 mg Tablet 650 mg PO Q6H PRN (Reason: Mild Pain (1-3) Or Fever) Qty: 30 0RF carvedilol [Coreg] 6.25 mg Tablet 6.25 mg PO Q12HR Qty: 60 0RF Discontinued naloxone 0.4 mg/mL Solution 0.1 mg IV PUSH Q2M PRN (Reason: Opiate Reversal) Qty: 10 0RF thiamine HCl (vitamin B1) [Vitamin B-1] 100 mg Tablet 100 mg PO QAM Qty: 30 0RF hydralazine 25 mg Tablet 25 mg PO QID PRN (Reason: Hypertension) Qty: 30 0RF megestrol 40 mg Tablet 40 mg PO QID Qty: 30 0RF Cathflo Activase 2 mg Recon Soln 2 mg IV PUSH ONCE PRN (Reason: Line Occlusion) Qty: 1 0RF enoxaparin [Lovenox] 40 mg/0.4 mL Syringe 40 mg subcut DAILY Qty: 4 0RF sodium chloride 1,000 mg Tablet,Soluble 1,000 mg PO BID Qty: 30 0RF Other Ambulatory Orders: Basic Metabolic Panel (Routine) Timeframe: 2 Days Location: Determined by Patient Ordered By: Libra Varela Complete Blood Count with Diff (Routine) Timeframe: 2 Days Location: Determined by Patient Ordered By: Libra Varela Date of admission: 07/27/24 11:55 Primary Care Provider: Fidel Li Admitting Provider: Ignacio Alberto Attending physician on admission: Ignacio Alberto Condition: Improved Quality VTE Prophylaxis VTE prophylaxis: pharmacologic ordered (Pt received Lovenox as SWB pt.) Hospitalist MIPS Heart Failure (Exclusion) Patient has history of Heart Transplant or Left Ventricular Assistive Device?: No IF YES, STOP HERE Heart Failure (Qualifier) Patient has current or prior documentation of LVEF less than or equal to 40%, or mod/servere depressed LVSF?: No IF NO, STOP HERE
[2024-08-10 16:00] VITALS: BP 130/66; PULSE 77; RESP 18; TEMP 36.3; O2SAT 96
[2024-08-10 20:00] VITALS: PULSE 77; RESP 18; O2SAT 96
[2024-08-10 20:57] VITALS: PULSE 67
[2024-08-11] VITALS: BP 146/83; PULSE 70; RESP 18; TEMP 36.4; O2SAT 97
[2024-08-11 08:00] VITALS: BP 142/83; PULSE 66; RESP 20; TEMP 36.3; O2SAT 97
--- NOTE | 2024-08-11 08:37 | P.DS_ITS ---
DS: Admitting Diagnosis Discharge Date 08/11/2024 Admitting Diagnosis Physical deconditioning, protein calorie malnutrition, hypertension, chronic alcohol use, jejunal adhesions, hyponatremia DS: Discharge Diagnosis Discharge Diagnosis (1) Physical deconditioning: Code(s): R53.81 - Other malaise Status: Acute Assessment and Plan: patient admitted due extended hospitalization secondary to SBO with abdominal surgery x2 * PT/OT * advance diet as tolerated encourage protein shakes with each meal 08/10/24: Date of discharge - patient has improved well with physical therapy and occupational therapy overall and stable for discharge to home at this time. (2) Protein-calorie malnutrition, severe: Code(s): E43 - Unspecified severe protein-calorie malnutrition Status: Acute Assessment and Plan: patient was initially on TPN for greater than 2 weeks which has since been discontinued * Diet advanced to soft diet * pain control * ambulate as tolerated * Antiemetics * Advance diet as tolerated * zofran PRN * Continue Megace for now 08/10/2024: Date of discharge - Pt has been tolerating a regular diet without difficulty. and having good intake of all meals. Encouraging continued intake of calories and protein for healing from surgery upon discharge. (3) Hypertension: Code(s): I10 - Essential (primary) hypertension Status: Acute Assessment and Plan: * continued carvedilol and PRN hydralazine * monitor BP per protocol 08/10/2024: Date of discharge - Continue Carvedilol as ordered as BP has been within normal range. 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 Plata * pain management * encourage activity * monitor for any signs obstructions * encourage oral hydration 08/10/2024: Date of discharge - Continue dressing changes as ordered per Dr. Shipman, General surgeon. Pt's spouse has been educated on how to do these at home and dressings are to be done daily. (5) Chronic alcohol use: Code(s): F10.90 - Alcohol use, unspecified, uncomplicated Status: Chronic Assessment and Plan: Stable Does not appear in withdrawal at this time will continue to monitor * Last drink 06/23 * Thiamine, folic acid, and multi-vitamin * PPI daily * librium PRN * CIWA daily * No sign of withdrawal 08/10/2024: Date of discharge - No s/s of withdrawal. He is encouraged not to restart consumption of alcohol. Last drink was /2. (6) Hyponatremia: Code(s): E87.1 - Hypo-osmolality and hyponatremia Status: Resolved Assessment and Plan: * NA 133 08/04 * Continue sodium chloride tablets b.i.d. 1 g 08/10/2024: Date of discharge - Continue sodium tabs BID 1G upon discharge home. Outpt labs to be checked in two to three days to ensure stability and for adjustment of medication dosages. Plan Stable for discharge to home at this time with a follow up with Dr. Shipman in two weeks to re-evaluate. DS: Summary Hospital Course Reason for hospitalization: Physical deconditioning and strengthening prior to discharge home Hospital Course: This is a pleasant 64-year-old male patient who was admitted to [facility] for continued rehabilitation after an extended hospitalization physically deconditioned.Patient was treated for small-bowel obstruction with the transition zone in the terminal ileum area. Patient had consult to General surgery was taken for exploratory laparotomy 06/29/2024 for repair serosal tears x2. He had a repeat CT scan on 07/06/2024 which shown findings compatible with small bowel obstruction with transition point in the mid small bowel, small amount of ascites with mesenteric edema, small right pleural effusion with patchy bibasilar pulmonary consolidation. He was then taken to the OR on 07/06/[address] Shipman 4 lysis of adhesion with resection of the jejunal perforation with anastomosis. With wound vac placed. He had a small bowel series 07/15/2024 showed normal follow through. Patient passing gas and having BM's. Patient's only reported past medical history included previous ETOH abuse and hypertension however patient was non no medications at time of admission to [facility]. Due to his extended hospitalization and minimum intake patient was admitted to swing bed status with severe physical deconditioning for physical and occupational therapy for rehabilitation with plans to ultimately return home. During patient's admission for swing bed status patient has gradually improved with physical therapy and occupational therapy making interval Improvement strength, mobility and nutrition overall. he saw Dr. Shipman in follow-up on 08/09/2024 and the wound VAC was discontinued at that time. Patient will continue daily dressing changes at home, his has been educated on how to perform them and he will follow-up again with General surgery in 2 weeks. Patient endorses that he is not having any pain at all and that he is eating well at this time, as evidenced by eating 100% of his breakfast this morning. He has no other acute complaints and would like to go home today. As patient has made interval improvement I do believe this is a good plan. Patient discharged was cancelled due medication issues however those were resolved he was seen day of discharge with no new complaints and medications updated. Status at Discharge Cognitive/behavioral status at discharge: At baseline Functional status at discharge: independent ambulation Overall status at discharge: patient is back to baseline Time Spent with Patient Time attestation: Total time spent providing and/or coordinating discharge services: Time spent: Greater than 30 minutes Specific discharge activities: dressing changes, medications, follow-up with General surgery, no use of alcohol /tobacco Exam Narrative: Gen: NAD HEENT: PERRL, pharyngeal mucosa pink and intact NECK: No JVD, supple neck CHEST: Clear to auscultation. Normal effort. HEART: NL S1/S2, regular, no murmur ABDOMEN: BS+, soft, nontender to palpation. There is a midline incision that is currently packed with ABD overlying. Surrounding skin intact without e rythema or signs or symptoms of infection. EXTREMITIES: No cyanosis, edema, or clubbing NEUROLOGIC: CN intact with no focal deficits noted MUSCULOSKELETAL: Tone and strength symmetric. PSYCH: Alert. Oriented to person, place, and time. Discharge Plan Discharge Attending physician on discharge: Libra Varela Consulting providers: Alessia Aquino Discharging Clinician: Alessia Aquino Anticipated Discharge Date/Time: 08/10/24 09:04 Patient Disposition: Home Activity: may shower and other - see discharge instructions Diet: regular Wound Care Instructions: follow printed instructions Discharge Instructions: Thank you for allowing us to evaluate and treat you in the swing bed status at [facility]. You have had interval improvement in have overall become stronger and are ready for discharge today. Here are a few instructions that I would like you to please follow. 1) As per Dr. Shipman's instructions, please do daily dressing changes to the abdomen, packing with sterile gauze and then covering with ABD pad. Please note if there is any development of redness around the wound to notify Dr. Shipman's office immediately. also please notify him if you have increasing pain, change in appearance of drainage from the wound, intractable nausea or vomiting, diarrhea or if you develop a temperature greater than 100.5. These are all signs and symptoms of infection that he will want to know so that he can intervene. 2) To aid in healing, it is very important that you eat a diet that is high in protein and high in caloric intake. Please eat 3 full meals a day that are balanced and 2 snacks. Drink plenty of water to stay hydrated and to keep your kidneys flushed. 3) Avoid drinking any alcohol, smoking any nicotine or vaping or the use of any drugs as they can inhibit healing. 4) Please take all medications as ordered. 5) You will need to have outpatient labs performed in the next 2 days. Please present to the lab to have those done. Patient Instructions: Megestrol (By mouth), Fall Prevention for Older Adults (DC), Chronic Wounds (DC) Patient Language: Uzbek Stand Alone Forms: General Discharge Information Follow-up/Referrals: Zach Shipman MD [Physician] - (Keep upcoming appointment that you have previously scheduled in two weeks.) Discharge Medications: New thiamine HCl (vitamin B1) [Vitamin B-1] 100 mg Tablet 100 mg PO QAM Qty: 30 0RF megestrol 40 mg Tablet 40 mg PO QID 30 Days Qty: 120 0RF sodium chloride 1,000 mg Tablet,Soluble 1,000 mg PO BID Qty: 60 0RF Silver-Sept 200 mcg/gram Gel 1 applic topical DAILY Qty: 3 1RF carvedilol [Coreg] 6.25 mg Tablet 6.25 mg PO Q12HR Qty: 60 0RF megestrol 20 mg tablet 40 mg PO QID Qty: 240 0RF potassium chloride [Klor-Con M20] 20 mEq tablet,ER particles/crystals 40 meq PO BID Qty: 120 0RF Continued pantoprazole 40 mg Tablet,Delayed Release (Dr/Ec) 40 mg PO QAM Qty: 30 0RF ondansetron 4 mg Tablet,Disintegrating 4 mg PO TID Qty: 30 0RF sertraline [Zoloft] 50 mg Tablet 50 mg PO QAM Qty: 30 0RF acetaminophen 325 mg Tablet 650 mg PO Q6H PRN (Reason: Mild Pain (1-3) Or Fever) Qty: 30 0RF carvedilol [Coreg] 6.25 mg Tablet 6.25 mg PO Q12HR Qty: 60 0RF Discontinued naloxone 0.4 mg/mL Solution 0.1 mg IV PUSH Q2M PRN (Reason: Opiate Reversal) Qty: 10 0RF thiamine HCl (vitamin B1) [Vitamin B-1] 100 mg Tablet 100 mg PO QAM Qty: 30 0RF hydralazine 25 mg Tablet 25 mg PO QID PRN (Reason: Hypertension) Qty: 30 0RF potassium chloride 20 mEq Packet 40 meq PO BID Qty: 30 0RF megestrol 40 mg Tablet 40 mg PO QID Qty: 30 0RF Cathflo Activase 2 mg Recon Soln 2 mg IV PUSH ONCE PRN (Reason: Line Occlusion) Qty: 1 0RF enoxaparin [Lovenox] 40 mg/0.4 mL Syringe 40 mg subcut DAILY Qty: 4 0RF sodium chloride 1,000 mg Tablet,Soluble 1,000 mg PO BID Qty: 30 0RF Other Ambulatory Orders: Basic Metabolic Panel (Routine) Timeframe: 2 Days Location: Determined by Patient Ordered By: Libra Varela Complete Blood Count with Diff (Routine) Timeframe: 2 Days Location: Determined by Patient Ordered By: Libra Varela Date of admission: 07/27/24 11:55 Primary Care Provider: Fidel Li Admitting Provider: Ignacio Alberto Attending physician on admission: Ignacio Alberto Condition: Improved Quality VTE Prophylaxis VTE prophylaxis: pharmacologic ordered (Pt received Lovenox as SWB pt.) -Patient's previous records reviewed on admission -ER notes reviewed in detail on admission -discussed all findings and current treatment plan with patient/Family/POA -Consultations reviewed for recommendations -Patient's disposition for safe discharge discussed with director of casework department Dictation performed by [employer] direct speech recognition software, therefore regulatory affairs strategy specialist variants and typographical errors may occur. Hospitalist MIPS Heart Failure (Exclusion) Patient has history of Heart Transplant or Left Ventricular Assistive Device?: No IF YES, STOP HERE Heart Failure (Qualifier) Patient has current or prior documentation of LVEF less than or equal to 40%, or mod/servere depressed LVSF?: No IF NO, STOP HERE
[2024-08-11 09:38] VITALS: PULSE 78
[2024-08-11] MEDS: MEGESTROL ACETATE (*CHEMO) 40 MG TABLET PO (09:38)
[2024-08-11] MEDS: POTASSIUM CHLORIDE 20 MEQ ER TABLET 40 MEQ PO (09:38)
[2024-08-11] MEDS: PANTOPRAZOLE 40 MG TABLET PO (09:38)
[2024-08-11] MEDS: SERTRALINE HCL 50 MG TABLET PO (09:38)
[2024-08-11] MEDS: SODIUM CHLORIDE 1 GM TABLET PO (09:38)
[2024-08-11] MEDS: THIAMINE HCL 100 MG TABLET PO (09:38)
[2024-08-11] MEDS: carvediloL 6.25 MG TABLET PO (09:38)
[2024-08-11] MEDS: ENOXAPARIN 40 MG/0.4 ML SYRINGE SUB-Q (09:38)
[2024-08-11] MEDS: ONDANSETRON HCL ODT 4 MG TABLET PO (09:39)
[2024-08-11] MEDS: SILVERGEL (ELTA) 45 ML 1 APPLIC TOPICAL (09:39)
--- NOTE | 2024-08-11 10:45 | PC.NURSE ---
Discharge instructions reviewed with patient and family, explained lab orders for this week. Dressing change supplies sent with patient. Patient assisted off floor per wheelchair and into private vehicle.
--- NOTE | 2024-08-13 12:30 | PC.NURSE ---
Discharge call back call made, unable to leave VM
--- NOTE | 2024-08-17 08:55 | PC.NURSE ---
2nd discharge call back made, indicated phone belonged to Dorie. Did not leave message.
== END 2024-08-11 10:45 | disposition home or self-care (01) | DRG 947 ==
PROVIDERS: Nurse Practitioner; Nurse Practitioner Family; Admitting Provider Internal Medicine; PCP Family Medicine; Visit Provider Internal Medicine
DX: R53.81 Other malaise (principal); E43 Unspecified severe protein-calorie malnutrition; E87.1 Hypo-osmolality and hyponatremia; K56.50 Intestinal adhesions [bands], unspecified as to partial versus complete obstruction; I10 Essential (primary) hypertension; F10.90 Alcohol use, unspecified, uncomplicated; Z87.891 Personal history of nicotine dependence; Z68.24 Body mass index [BMI] 24.0-24.9, adult
CPT/HCPCS: 36415; 80053; 85027; 87493; 87641; 97110; 97161; 97166; 97530; 97535; A9270; J1650

== ENCOUNTER 2024-08-13 10:26 | Outpatient (CLI) | payer MEDICARE, SELFPAY ==
[2024-08-13 11:19] LABS: Basophils Absolute Auto 0.09 K/mm3 (0.00-0.10); Basophils Percent Auto 0.8 % (0.0-1.0); Eosinophils Absolute Auto 0.38 K/mm3 (0.02-0.50); Eosinophils Percent Auto 3.3 % (1.0-6.0); Hemoglobin 11.7 g/dL (12.4-15.3); Immature Granulocyte Absolute 0.05 K/mm3 (0.00-0.00); Immature Granulocyte Percent A 0.4 % (0.0-0.0); Lymphocytes Absolute Auto 2.16 K/mm3 (1.10-4.50); Lymphocytes Percent Auto 18.6 % (18.0-42.0); Mean Corpuscular HGB Conc 32.5 g/dL (32-36); Mean Corpuscular Hemoglobin 28.4 pg (27.0-31.0); Mean Corpuscular Volume 87.4 fL (78.0-102.0); Mean Platelet Volume 9.5 fl (8.7-11.0); Monocytes Absolute Auto 1.09 K/mm3 (0.10-0.90); Monocytes Percent Auto 9.4 % (2.0-11.0); Neutrophils Absolute Auto 7.82 K/mm3 (1.70-7.20); Neutrophils Percent Auto 67.5 % (50.0-70.0); Platelet Count Result 345 K/mm3 (150-420); Red Blood Count 4.12 M/mm3 (4.70-6.10); Red Cell Distribution Width 13.6 % (11.6-14.4); White Blood Count 11.6 K/mm3 (4.8-10.8)
[2024-08-13 11:51] LABS: Anion Gap 7 mmol/L (4-12); Blood Urea Nitrogen 10 mg/dL (9-20); Carbon Dioxide 19 mmol/L (22-30); Chloride 107 mmol/L (98-107); Estimated Glomerular Filt Rate > 60; Glucose 107 mg/dL (65-110); Osmolality Calculated 275 mOsm/kg (285-295); Potassium 4.5 mmol/L (3.4-5.0); Sodium 133 mmol/L (137-145)
== END 2024-08-13 10:27 | disposition home or self-care (01) ==
PROVIDERS: PCP Internal Medicine; Visit Provider Nurse Practitioner Adult Health
DX: E87.1 Hypo-osmolality and hyponatremia (principal)
CPT/HCPCS: 36415; 80048; 85025

== ENCOUNTER 2024-09-10 09:40 | Outpatient (CLI) | payer MEDICARE, SELFPAY ==
--- NOTE | ~2024-09-10 | XR_ITS ---
Clinical Indication: Dyspnea PA and lateral views of the chest: Comparison: 07/08/2024 Findings: Probable minimal right pleural effusion. There is hazy airspace opacity peripheral right up per lobe.. Cardiomediastinal silhouette is within normal limits. Bones and soft tissues are unremark able. Impression: Peripheral right upper lobe airspace disease is suspicious for pneumonia. Minimal right pleural effusion. Reviewed, dictated and finalized at location . Impression: Peripheral right upper lobe airspace disease is suspicious for pneumonia. Minimal right pleural effusion.
[2024-09-10 10:03] LABS: Basophils Absolute Auto 0.12 K/mm3 (0.00-0.10); Basophils Percent Auto 1.4 % (0.0-1.0); Eosinophils Absolute Auto 0.41 K/mm3 (0.02-0.50); Eosinophils Percent Auto 4.8 % (1.0-6.0); Hematocrit 39.1 % (37.0-46.0); Hemoglobin 12.4 g/dL (12.4-15.3); Immature Granulocyte Absolute 0.03 K/mm3 (0.00-0.00); Immature Granulocyte Percent A 0.4 % (0.0-0.0); Immature Platelet Fraction Pct 0.8 % (1.0-7.0); Lymphocytes Absolute Auto 2.27 K/mm3 (1.10-4.50); Lymphocytes Percent Auto 26.7 % (18.0-42.0); Mean Corpuscular HGB Conc 31.7 g/dL (32-36); Mean Corpuscular Volume 85.2 fL (78.0-102.0); Mean Platelet Volume 8.5 fl (8.7-11.0); Monocytes Percent Auto 8.2 % (2.0-11.0); Neutrophils Absolute Auto 4.97 K/mm3 (1.70-7.20); Neutrophils Percent Auto 58.5 % (50.0-70.0); Platelet Count Result 546 K/mm3 (150-420); Red Blood Count 4.59 M/mm3 (4.70-6.10); Red Cell Distribution Width 14.3 % (11.6-14.4); White Blood Count 8.5 K/mm3 (4.8-10.8)
[2024-09-10 10:38] LABS: Color Urine Straw (Yellow)
[2024-09-10 10:39] LABS: Add Urine Microscopic? YES; Appearance Urine Cloudy (Clear); Bilirubin Urine Negative (Negative); Blood Urine 1+ (Negative); Glucose Urine UA Negative (Negative); Ketones Urine Negative (Negative); Leukocyte Esterase Ur 3+ (Negative); Nitrate Urine Positive (Negative); Protein Urine Negative (Negative); Urobilinogen Urine 0.2 mg/dL (0.2-1.0); WBC Urine >100 /hpf (0-3); pH Urine 7.5 (5.0-8.0)
[2024-09-10 10:40] LABS: Bacteria Urine 2+ /hpf
[2024-09-10 10:44] LABS: Alanine Aminotransferase 11 U/L (6-50); Albumin Level 3.2 g/dL (3.5-5.1); Alkaline Phosphatase 96 U/L (38-126); Anion Gap 5 mmol/L (4-12); Aspartate Amino Transferase 21 U/L (17-59); Bilirubin,Total 0.5 mg/dL (0.2-1.3); Blood Urea Nitrogen 4 mg/dL (9-20); Calcium 9.1 mg/dL (8.4-10.2); Carbon Dioxide 27 mmol/L (22-30); Chloride 104 mmol/L (98-107); Estimated Glomerular Filt Rate > 60; Glucose 96 mg/dL (65-110); Magnesium 1.5 mg/dL (1.6-2.3); Osmolality Calculated 278 mOsm/kg (285-295); Phosphorus 4.5 mg/dL (2.5-4.5); Potassium 3.9 mmol/L (3.4-5.0); Sodium 136 mmol/L (137-145); Total Protein 6.5 g/dL (6.3-8.2)
[2024-09-10 11:01] LABS: Free T4 Free Thyroxine 1.21 ng/dL (0.78-2.19)
[2024-09-10 11:15] LABS: Prostate Specific Antigen 13.1 ng/mL (< OR = 4.0)
[2024-09-10 11:30] LABS: Free T3 3.49 pg/mL (2.18-3.98)
== END 2024-09-10 09:41 | disposition home or self-care (01) ==
LOC: CHSLAB 09:46
PROVIDERS: PCP Internal Medicine; Visit Provider Internal Medicine
DX: R06.00 Dyspnea, unspecified (principal); R00.0 Tachycardia, unspecified; R53.1 Weakness; Z12.5 Encounter for screening for malignant neoplasm of prostate
CPT/HCPCS: 36415; 71046; 80053; 81001; 83735; 84100; 84153; 84439; 84443; 84481; 85025; 85055; 93005; G0103

== ENCOUNTER 2024-09-14 08:18 | Outpatient (CLI) | payer MEDICARE, SELFPAY ==
--- NOTE | ~2024-09-14 | CT_ITS ---
Clinical Indication: Abnormal chest x-ray CT Scan of the Chest with Contrast: Technique: Contiguous sections were acquired throughout the chest after intravenous administration of 75 cc of Omnipaque 350. Dose reduction technique was used on this scan by utilizing automated exposu re control and iterative reconstruction technique. The dose-length product (DLP) was 197.32 mGy-cm. Findings: There is no evidence of any significant mediastinal, hilar or axillary lymphadenopathy. There is no f illing defect in the pulmonary arterial tree to suggest pulmonary embolus. There is no evidence of ao rtic dissection or aneurysm. No pericardial effusion. Moderate right pleural effusion present. Minimal left pleural fluid present. Mild groundglass opacity right lung suggest mild pulmonary edema. There is mild right basilar atelectasis.. Images through the upper abdomen reveal no abnormalities. Impression: Moderate right pleural effusion and minimal left pleural effusion. Associated mild pulmonary edema and mild dependent right atelectasis. Reviewed, dictated and finalized at [facility]. Impression: Moderate right pleural effusion and minimal left pleural effusion. Associated mild pulmonary edema and mild dependent right atelectasis.
== END 2024-09-14 08:19 | disposition home or self-care (01) ==
PROVIDERS: PCP Internal Medicine; Visit Provider Internal Medicine
DX: N39.0 Urinary tract infection, site not specified (principal); J90 Pleural effusion, not elsewhere classified; J98.11 Atelectasis; J81.1 Chronic pulmonary edema
CPT/HCPCS: 71260; Q9967

== ENCOUNTER 2024-11-04 07:26 | Outpatient (RCR) | payer MEDICARE, SELFPAY ==
[2024-08-09 10:30] VITALS: BMI 23.8
== END 2024-11-07 23:59 | disposition home or self-care (01) ==
LOC: ANHWOC 07:26
PROVIDERS: PCP Family Medicine; Visit Provider Surgery
DX: T81.329D Deep disruption or dehiscence of operation wound, unspecified, subsequent encounter (principal)
CPT/HCPCS: 99213; 99214; A9270; G0463

== ENCOUNTER 2024-11-17 10:17 | Outpatient (CLI) | payer MEDICARE, SELFPAY ==
--- NOTE | ~2024-11-17 | XR_ITS ---
EXAMINATION: XR chest 2V 11/17/2024 10:56 INDICATION: Dyspnea. Right pleural effusion. PROCEDURE: PA view of the chest COMPARISON: 09/10/2024 FINDINGS: Chronic scarring right upper lobe. Small right pleural effusion. The cardiomediastinal silhouette is within normal limits. No acute osseous abnormality. There is no pneumothorax suspected. IMPRESSION: 1: Small right pleural effusion. Reviewed, dictated and finalized at location [facility].
[2024-11-17 10:48] LABS: Hematocrit 40.6 % (37.0-46.0); Hemoglobin 12.8 g/dL (12.4-15.3); Mean Corpuscular HGB Conc 31.5 g/dL (32-36); Mean Corpuscular Hemoglobin 26.3 pg (27.0-31.0); Mean Corpuscular Volume 83.5 fL (78.0-102.0); Platelet Count Result 374 K/mm3 (150-420); Red Blood Count 4.86 M/mm3 (4.70-6.10); White Blood Count 7.6 K/mm3 (4.8-10.8)
[2024-11-17 12:12] LABS: Alanine Aminotransferase 9 U/L (6-50); Albumin Level 3.5 g/dL (3.5-5.1); Alkaline Phosphatase 74 U/L (38-126); Anion Gap 11 mmol/L (4-12); Aspartate Amino Transferase 17 U/L (17-59); Bilirubin,Total 0.5 mg/dL (0.2-1.3); Blood Urea Nitrogen 8 mg/dL (9-20); Calcium 9.8 mg/dL (8.4-10.2); Carbon Dioxide 26 mmol/L (22-30); Chloride 102 mmol/L (98-107); Estimated Glomerular Filt Rate > 60; Glucose 109 mg/dL (65-110); Osmolality Calculated 287 mOsm/kg (285-295); Potassium 4.1 mmol/L (3.4-5.0); Sodium 139 mmol/L (137-145); Total Protein 6.6 g/dL (6.3-8.2)
[2024-11-17 12:43] LABS: Prostate Specific Antigen 5.8 ng/mL (< OR = 4.0)
== END 2024-11-17 10:18 | disposition home or self-care (01) ==
PROVIDERS: PCP Internal Medicine; Visit Provider Internal Medicine
DX: J90 Pleural effusion, not elsewhere classified (principal); N41.9 Inflammatory disease of prostate, unspecified
CPT/HCPCS: 36415; 71046; 80053; 84153; 85027

== ENCOUNTER 2024-11-25 08:48 | Outpatient (RCR) | payer MEDICARE, SELFPAY ==
[2024-11-08 00:03] VITALS: BMI 23.8
== END 2025-02-15 11:56 | disposition home or self-care (01) ==
LOC: ANHWOC 08:48
PROVIDERS: PCP Internal Medicine; Visit Provider Surgery
DX: Z48.01 Encounter for change or removal of surgical wound dressing (principal); T81.329D Deep disruption or dehiscence of operation wound, unspecified, subsequent encounter
CPT/HCPCS: 99213; G0463